=== PATIENT | female | born 1935 | race Two or more races ===

== ENCOUNTER 2016-07-21 12:38 | Inpatient (IN) | payer OTHER ==
[~2016-07-21] VITALS: Ht 162.6 cm; Wt 76.5 kg
[~2016-07-21 12:38] MED LIST: HYDR-2549 OR
[2016-07-21 13:47] LABS: Basophils # (auto) 0.1 uL; Basophils % (auto) 0.9 % (0.0-2.0); Eosinophils # (auto) 0.4 uL; Eosinophils % (auto) 6.2 % (0.0-7.0); Hematocrit 47.4 % (36.0-46.0); Hemoglobin 15.2 g/dL (12.2-16.2); Lymphocytes # (auto) 1.1 uL; Lymphocytes % (auto) 18.1 % (10.0-50.0); Mean Corpuscular Hemoglobin 31.4 pg (28.0-32.0); Mean Corpuscular Volume 98.2 fL (80.0-100.0); Mean Platelet Volume 8.5 fL (7.4-10.4); Monocytes # (auto) 0.4 uL; Monocytes % (auto) 6.5 % (0.0-12.0); Neutrophils # (auto) 4.2 uL; Neutrophils % (auto) 68.3 % (37.0-80.0); Platelet Count (auto) 262 10^3/uL (140-450); White Blood Cell 6.1 10^3/uL (4.4-10.8)
[2016-07-21 14:16] LABS: Albumin 3.8 g/dL (3.4-5.0); BUN/Creatinine Ratio 16.9; Bilirubin, Total 0.5 mg/dL (0.2-1.0); Calcium 8.4 mg/dL (8.5-10.1); Potassium 3.4 mmol/L (3.5-5.1); Total Protein 7.5 g/dL (6.4-8.2)
[2016-07-21] MEDS ORDERED: methylPREDNISolone SOD SUCC 125 MG/2 ML VL IV ONE (15:30)
[2016-07-21] MEDS ORDERED: IPRATROPIUM BROM 0.5 MG/2.5ML INH SOL NEB ONE (15:30)
[2016-07-21] MEDS ORDERED: ALBUTEROL SULF 2.5 MG/0.5ML(0.5%) NEB SOLN NEB ONE (15:30)
[2016-07-21] MEDS ORDERED: cefTRIAXone 1GM/50ML D5W 50 ML IV ONE (15:30)
[2016-07-21] MEDS ORDERED: AZITHROMYCIN 500MG/D5W 250ML 250 ML IV ONE (15:30)
[2016-07-21] MEDS ORDERED: LORazepam 0.5 MG TAB PO PRN (15:45)
[2016-07-21] MEDS ORDERED: HYDROcodone-ACET 5/325MG TAB PO PRN (15:45)
[2016-07-21] MEDS ORDERED: DEXTROSE (50%) 50ML SYRG IV PRN (15:45)
[2016-07-21] MEDS ORDERED: ALBUTEROL SULF 2.5 MG/0.5ML(0.5%) NEB SOLN NEB PRN (15:45)
[2016-07-21] MEDS ORDERED: NITROGLYCERIN 0.4 MG SL TAB SL PRN (15:45)
[2016-07-21] MEDS ORDERED: OSELTAMIVIR 75 MG CAP PO ONE (15:45)
[2016-07-21] MEDS ORDERED: MORPHINE SULF INJ 2 MG/ML SYRINGE 1ML IV PRN (15:45)
[2016-07-21] MEDS ORDERED: PROMETHAZINE HCL 25 MG/ML 1ML IV PRN (15:45)
[2016-07-21 16:10] LABS: B-Type Natriuretic Peptide 77.7 pg/mL (0-100)
[2016-07-21] MEDS: SODIUM CHLORIDE 0.9% 1,000 ML IV SCH (16:40)
[2016-07-21 16:42] LABS: Temperature: 22.1 C (20.0-25.0)
[2016-07-21] MEDS: DOXYCYCLINE HYC 100MG/250ML 250 ML IV SCH (16:49)
[2016-07-21] MEDS ORDERED: PANTOPRAZOLE 40 MG TAB PO SCH (16:50)
[2016-07-21] MEDS: ACCU-CHEK COMFORT CURVE STRIP VI SCH ×2 (17:00→22:00)
[2016-07-21] MEDS: InsuLIN REG 1unit/0.01ml Soln (100units/ml) SC SCH ×2 (17:00→23:14)
[2016-07-21] MEDS: HYDROcodone-ACET 10/325MG TAB PO SCH ×2 (17:00→22:00)
[2016-07-21] MEDS ORDERED: OMEP20TA PO (17:13)
[2016-07-21] MEDS ORDERED: GABA-339 PO (17:13)
[2016-07-21] MEDS ORDERED: NOR5T PO (17:13)
[2016-07-21 17:49] VITALS: BP 130/78
[2016-07-21] MEDS: methylPREDNISolone SOD SUCC 40 MG/ML VL IV SCH ×2 (18:35→23:45)
[2016-07-21] MEDS ORDERED: PNEUMOCOCCAL VACC POLYS 25 MCG/0.5 ML VIAL IM ONE (18:45)
[2016-07-21] MEDS ORDERED: INFLUENZA QUAD 2016-2017 0.5 ML SYRG IM ONE (18:45)
[2016-07-21] MEDS: ENOXAPARIN SOD 40 MG/0.4 ML SYRINGE SC SCH (18:45)
[2016-07-21] MEDS: IPRATROPIUM BROM 0.5 MG/2.5ML INH SOL NEB SCH (19:15)
[2016-07-21] MEDS: ALBUTEROL SULF 2.5 MG/0.5ML(0.5%) NEB SOLN NEB SCH (19:15)
[2016-07-21 19:40] LABS: REFLEX LACTIC ACID YES OR NO NO
[2016-07-21] MEDS: OSELTAMIVIR 30 MG CAP PO SCH ×2 (21:15→22:00)
[2016-07-21 21:55] VITALS: BP 108/55
[2016-07-21] MEDS ORDERED: GABAPENTIN 300 MG CAP PO SCH ×2 (22:00)
[2016-07-21] MEDS: GABAPENTIN 300 MG CAP PO SCH (22:24)
[2016-07-22] MEDS: IPRATROPIUM BROM 0.5 MG/2.5ML INH SOL NEB SCH ×4 (01:17→18:00)
[2016-07-22] MEDS: ALBUTEROL SULF 2.5 MG/0.5ML(0.5%) NEB SOLN NEB SCH ×4 (01:17→19:19)
[2016-07-22 01:19] VITALS: BP 108/55
[2016-07-22] MEDS: DOXYCYCLINE HYC 100MG/250ML 250 ML IV SCH ×2 (04:02→15:46)
[2016-07-22] MEDS: SODIUM CHLORIDE 0.9% 1,000 ML IV SCH ×2 (05:05→14:00)
[2016-07-22 05:14] VITALS: BP 124/68
[2016-07-22] MEDS: GABAPENTIN 300 MG CAP PO SCH ×3 (06:00→21:32)
[2016-07-22] MEDS: InsuLIN REG 1unit/0.01ml Soln (100units/ml) SC SCH ×4 (06:19→22:55)
[2016-07-22] MEDS: ACCU-CHEK COMFORT CURVE STRIP VI SCH ×4 (06:20→21:32)
[2016-07-22 06:21] LABS: Basophils # (auto) 0 uL; Basophils % (auto) 0.2 % (0.0-2.0); Eosinophils # (auto) 0 uL; Hematocrit 42.7 % (36.0-46.0); Hemoglobin 13.7 g/dL (12.2-16.2); Lymphocytes # (auto) 0.6 uL; Lymphocytes % (auto) 10.6 % (10.0-50.0); Mean Corpuscular Hemoglobin 31.4 pg (28.0-32.0); Mean Corpuscular Volume 97.8 fL (80.0-100.0); Mean Platelet Volume 8.9 fL (7.4-10.4); Monocytes # (auto) 0.1 uL; Neutrophils # (auto) 4.9 uL; Neutrophils % (auto) 88.2 % (37.0-80.0); Platelet Count (auto) 222 10^3/uL (140-450); Red Cell Distribution Width 16.7 % (11.6-16.0); White Blood Cell 5.5 10^3/uL (4.4-10.8)
[2016-07-22] MEDS: HYDROcodone-ACET 10/325MG TAB PO SCH ×3 (06:26→21:32)
[2016-07-22] MEDS: methylPREDNISolone SOD SUCC 40 MG/ML VL IV SCH ×3 (06:26→17:56)
[2016-07-22 06:41] LABS: Albumin 3.4 g/dL (3.4-5.0); BUN/Creatinine Ratio 27.3; Bilirubin, Total 0.4 mg/dL (0.2-1.0); Calcium 8.7 mg/dL (8.5-10.1); Potassium 3.3 mmol/L (3.5-5.1); Total Protein 6.6 g/dL (6.4-8.2)
[2016-07-22 09:00] VITALS: BP 130/71
[2016-07-22] MEDS ORDERED: guaiFENesin-DEXTROMETHORPHAN 5ML SYR GT PRN (09:00)
[2016-07-22] MEDS: PANTOPRAZOLE 40 MG TAB PO SCH (09:32)
[2016-07-22] MEDS: ENOXAPARIN SOD 40 MG/0.4 ML SYRINGE SC SCH (09:33)
[2016-07-22] MEDS ORDERED: guaiFENesin-DEXTROMETHORPHAN 5ML SYR PO PRN (09:45)
[2016-07-22] MEDS ORDERED: POTASSIUM CHL 20 Meq TABLET PO ONE (12:15)
[2016-07-22 13:00] VITALS: BP 144/70
[2016-07-22] MEDS ORDERED: PROMETHAZINE W/CODEINE 5 ML ORAL SYRUP PO PRN (16:00)
[2016-07-22] MEDS: PROMETHAZINE W/CODEINE 5 ML ORAL SYRUP PO PRN (16:16)
[2016-07-22 17:00] VITALS: BP 130/73
[2016-07-22] MEDS: MORPHINE SULF INJ 2 MG/ML SYRINGE 1ML IV PRN (19:38)
[2016-07-22 22:00] VITALS: BP 126/76
[2016-07-22] MEDS: TEMAZEPAM 15 MG CAP PO PRN (22:52)
[2016-07-23] MEDS: methylPREDNISolone SOD SUCC 40 MG/ML VL IV SCH ×5 (00:46→23:13)
[2016-07-23] MEDS: MORPHINE SULF INJ 2 MG/ML SYRINGE 1ML IV PRN ×2 (00:46→15:23)
[2016-07-23] MEDS: PROMETHAZINE W/CODEINE 5 ML ORAL SYRUP PO PRN (00:49)
[2016-07-23] MEDS: ALBUTEROL SULF 2.5 MG/0.5ML(0.5%) NEB SOLN NEB SCH ×4 (01:05→19:15)
[2016-07-23] MEDS: DOXYCYCLINE HYC 100MG/250ML 250 ML IV SCH ×2 (03:49→15:25)
[2016-07-23 05:00] VITALS: BP 135/70
[2016-07-23] MEDS: GABAPENTIN 300 MG CAP PO SCH ×3 (06:04→21:10)
[2016-07-23] MEDS: HYDROcodone-ACET 10/325MG TAB PO SCH ×2 (06:05→13:32)
[2016-07-23] MEDS: ACCU-CHEK COMFORT CURVE STRIP VI SCH ×4 (06:44→21:12)
[2016-07-23] MEDS: InsuLIN REG 1unit/0.01ml Soln (100units/ml) SC SCH ×4 (06:46→21:38)
[2016-07-23] MEDS: IPRATROPIUM BROM 0.5 MG/2.5ML INH SOL NEB SCH ×4 (07:03→19:15)
[2016-07-23 07:20] LABS: Urine Bilirubin Negative (Negative); Urine Blood Negative /uL (Negative); Urine Color Yellow (Yellow); Urine Glucose Normal (Normal); Urine Ketone Negative (Negative); Urine Mucus FEW (None Seen); Urine Nitrite Negative (Negative); Urine RBC <1 /hpf (0 - 4); Urine Squamous Epithelial Cell FEW /hpf (<5); Urine Urobilinogen Normal (Negative); Urine pH 6.5 (5.0-8.0)
[2016-07-23 08:08] VITALS: BP 130/72
[2016-07-23] MEDS: SODIUM CHLORIDE 0.9% 1,000 ML IV SCH (08:43)
[2016-07-23] MEDS: PANTOPRAZOLE 40 MG TAB PO SCH (09:48)
[2016-07-23] MEDS: ENOXAPARIN SOD 40 MG/0.4 ML SYRINGE SC SCH (09:48)
[2016-07-23 13:10] VITALS: BP 141/69
[2016-07-23 17:12] VITALS: BP 139/75
[2016-07-23] MEDS: LACTULOSE 20Gm/30ML SOLN PO SCH ×2 (18:04→23:13)
[2016-07-23] MEDS: ACETAMINOPHEN 500 MG TAB PO PRN ×2 (19:47→23:13)
[2016-07-23] MEDS: TEMAZEPAM 15 MG CAP PO PRN (21:10)
[2016-07-23 22:00] VITALS: BP 133/70
[2016-07-24] MEDS: IPRATROPIUM BROM 0.5 MG/2.5ML INH SOL NEB SCH ×3 (00:17→12:52)
[2016-07-24] MEDS: ALBUTEROL SULF 2.5 MG/0.5ML(0.5%) NEB SOLN NEB SCH ×3 (00:18→12:52)
[2016-07-24] MEDS: DOXYCYCLINE HYC 100MG/250ML 250 ML IV SCH (03:00)
[2016-07-24] MEDS: ACETAMINOPHEN 500 MG TAB PO PRN ×2 (04:38→09:14)
[2016-07-24 05:00] VITALS: BP 138/77
[2016-07-24] MEDS: LACTULOSE 20Gm/30ML SOLN PO SCH ×2 (05:05→12:18)
[2016-07-24] MEDS: methylPREDNISolone SOD SUCC 40 MG/ML VL IV SCH ×2 (05:05→11:49)
[2016-07-24] MEDS: InsuLIN REG 1unit/0.01ml Soln (100units/ml) SC SCH ×2 (05:26→11:30)
[2016-07-24] MEDS: ACCU-CHEK COMFORT CURVE STRIP VI SCH ×2 (05:26→11:48)
[2016-07-24] MEDS: GABAPENTIN 300 MG CAP PO SCH ×2 (05:42→13:37)
[2016-07-24 09:18] VITALS: BP 132/87
[2016-07-24] MEDS: PANTOPRAZOLE 40 MG TAB PO SCH (11:39)
[2016-07-24] MEDS: ENOXAPARIN SOD 40 MG/0.4 ML SYRINGE SC SCH (11:39)
[2016-07-24 12:30] VITALS: BP 133/65
[2016-07-24 16:42] VITALS: BP 158/81
== END 2016-07-24 15:00 | disposition left against medical advice (07) | DRG 191 ==
LOC: ER 12:50 → TELE 12:51 → TELE-WESTW 17:34
PROVIDERS: ADMIT Internal Medicine; ATTEND Internal Medicine
DX: J44.1 Chronic obstructive pulmonary disease with (acute) exacerbation (principal); J45.901 Unspecified asthma with (acute) exacerbation; E11.9 Type 2 diabetes mellitus without complications; I10 Essential (primary) hypertension; I70.0 Atherosclerosis of aorta; J20.9 Acute bronchitis, unspecified; K21.9 Gastro-esophageal reflux disease without esophagitis; M54.9 Dorsalgia, unspecified; E87.6 Hypokalemia; G89.29 Other chronic pain; Z53.21 Procedure and treatment not carried out due to patient leaving prior to being seen by health care provider; F41.9 Anxiety disorder, unspecified; Z90.710 Acquired absence of both cervix and uterus; Z79.899 Other long term (current) drug therapy; Z80.3 Family history of malignant neoplasm of breast; Z82.5 Family history of asthma and other chronic lower respiratory diseases; Z87.891 Personal history of nicotine dependence
CPT/HCPCS: 36415; 36600; 71020; 80053; 80061; 81001; 82805; 82962; 83036; 83605; 83735; 83880; 84484; 85025; 85049; 85379; 87040; 87070; 87205; 87400; 93005; 94640; 94644; 96365; 96375; 99291; G9035; J0696; J1815; J3490

== ENCOUNTER 2024-08-31 09:28 | Emergency (ER) | payer OTHER, MEDICAID ==
[~2024-08-31] VITALS: Ht 162.6 cm; Wt 50.0 kg
[~2024-08-31 09:28] MED LIST changes: +FLUT110A INH; +GABA-339 PO; -HYDR-2549 OR; +OMEP20TA PO
--- NOTE | 2024-08-31 10:15 | ED.PDOC ---
History of Present Illness HPI Comments 89-year-old female with PMHx Dementia, COPD brought in by EMS presents with a chief complaint of left hip tenderness s/p mechanical fall. Patients family states that they witnessed patient on camera falling and landing on her left hip. Patient has a history of hip replacement on her left side. Patient is nor fabrice A&Ox2 at baseline and is currently at GCS 14. Patient denies hitting her head or losing consciousness. Patient is not on blood thinners. Chief Complaint: Fall Injury Time Seen by MD: 09:41 Primary Care Provider: NORM Dyer Notes: Medications, Allergies Allergies: Coded Allergies: NO KNOWN ALLERGIES (Unverified , 09/09/16) Home Meds Active Scripts Fluticasone Propionate (FLOVENT HFA 110Mcg INH) 110 Mcg Ih, 2 PUFF INH BID, #1 INHALER 0 Refills Prov:DEBBY HANLEY MD 09/13/16 Reported Medications Omeprazole (Gnp Omeprazole) 20 Mg Tab, 1 TAB PO DAILY, #90 TAB 1 Refill 07/21/16 Gabapentin (Gabapentin) 600 Mg Tab, 1 TAB PO TID, #90 TAB 3 Refills 07/21/16 Information Source: Patient, Emergency Med Personnel Mode of Arrival: EMS Severity: Moderate Timing: Minutes Duration: Since onset Prehospital treatment: None Past Medical History PAST MEDICAL HISTORY: Anxiety, Arthritis, Asthma, COPD, GERD Surgical History: Hysterectomy UNDERWATER ROBOTICIST History: Denies all UNDERWATER ROBOTICIST Hx Family History Family History: No family hx of Lung dieudonne Social History Smoker: Quit Greater Than 1 Year, Cigarettes Alcohol: Denies ETOH Use Drugs: Denies Drug Use Lives In: Home Constitutional: denies: chills, diaphoresis, fatigue, fever, malaise, sweats, weakness, others EENTM: denies: blurred vision, double vision, ear bleeding, ear discharge, ear drainage, ear pain, ear ringing, eye pain, eye redness, hearing loss, mouth pain, mouth swelling, nasal discharge, nose bleeding, nose congestion, nose pa in, photophobia, tearing, throat pain, throat swelling, voice changes, others Respiratory: denies: cough, hemoptysis, orthopnea, SOB at rest, shortness of breath, SOB with excertion, stridor, wheezing, others Cardiovascular: denies: chest pain, dizzy spells, diaphoresis, Dyspnea on exertion, edema, irregular heart beat, left arm pain, lightheadedness, palpitations, PND, syncope, others Gastrointestinal: denies: abdomen distended, abdominal pain, blood streaked bowels, constipated, diarrhea, dysphagia, difficulty swallowing, hematemesis, melena, nausea, poor appetite, poor fluid intake, rectal bleeding, rectal pain, vomiting, others Genitourinary: denies: abnormal vagina bleeding, burning, dyspareunia, dysuria, flank pain, frequency, hematuria, incontinence, pain, , vagina discharge, urgency, others Neurological: denies: dizziness, fainting, headache, left sided numbness, left sided weakness, numbness, paresthesia, pre-existing deficit, right sided numbness, right sided weakness, seizure, speech problems, tingling, tremors, weakness, others Musculoskeletal: reports: muscle pain; denies: back pain, gout, joint pain, joint swelling, muscle stiffness, neck pain, others Integumetry: denies: bruises, change in color, change in hair/nails, dryness, laceration, lesions, lumps, rash, wounds, others Allergic/Immunocompromised: denies: Difficulty Healing, Frequent Infections, Hives, Itching, others Hematologic/Lymphatic: denies: anemia, blood clots, easy bleeding, easy bruising, swollen glands, others Endocrine: denies: excessive hunger, excessive sweating, excessive thirst, excessive urination, flushing, intolerance to cold, intolerance to heat, unexpla ined weight gain, unexplained weight loss, others Psychiatric: denies: anxiety, bipolar disorder, depression, hopeless, panic disorder, schizophrenia, sleepless, suicidal, others All Other Systems: Reviewed and Negative Physical Exam General Appearance: Mild Distress, Thin HEENT: Normal ENT Inspection, Pharynx Normal, TMs Normal Neck: Full Range of Motion, Non-Tender, Normal, Normal Inspection Respiratory: Chest Non-Tender, Lungs Clear, No Accessory Muscle Use, No Respiratory Distress, Normal Breath Sounds Cardiovascular: No Edema, No JVD, No Murmur, No Gallop, Normal Peripheral Pulses, Regular Rate/Rhythm Breast Exam: Deferred Gastrointestinal: No Organomegaly, Non Tender, No Pulsatile Mass, Normal Bowel Sounds, Soft Genitalia: Deferred Pelvic: Deferred Rectal: Deferred Extremities: Decreased range of motion, No calf tenderness, Normal capillary refill, Normal inspection, Normal range of motion, Non-tender, No pedal edema Musculoskeletal : Apperance: Normal Neurologic: Alert, salvage mend worker II-XII nml as Tested, No Motor Deficits, Normal Affect, Normal Mood, No Sensory Deficits Cerebellar Function: Normal Reflexes: Normal Skin: Dry, Normal Color, Warm Lymphatic: No Adenopathy Was a procedure done? Was a procedure done?: No EKG EKG : Pulse Rate (adult): 68 [place]: Normal Cardiac Rhythm: NSR Block: RBBB Hypertrophy: None ST: Normal Differential Dx Considerations may include: HIP FRACTURE, HIP SPRAIN, HIP DISLOCATION, DIZZINESS, SPINE FRACTURE, INTRACRANIAL HEMORRHAGE X-Ray, Labs, Meds, VS Vital Signs Date Time Temp Pulse Resp B/P (MAP) Pulse Ox O2 Delivery O2 Flow Rate FiO2 08/31/24 10:15 68 08/31/24 09:56 68 08/31/24 09:44 98.3 80 12 144/75 (98) 90 Lab Test 08/31/24 09:52 Range/Units POC Glucose 112 H 70-106 mg/dl 89-year-old female presents here status post mechanical fall. Family did not witness it however they washed on the camera and saw that she fell. She did not hit her head. She denies any headache neck or back pain. At this time she is alert and oriented x3 which is normal for her. She does report some pain to the left hip. X-ray and CT scan of the left hip has been done. Left hip with no evidence of acute fracture and prosthesis has still in place. However patient still unable to bear weight on exam. At this time we spoke to the daughter who prefers she come home and they will take care of her. Daughter does not want her going to a jail care facility. At this time patient has been discharged to daughter. Advised family that if they are unable to take care of the patient at home to return back to the ER. Patient is okay taking Tylenol for pain control and using ice packs. Time of 1ST Reevaluation: 10:11 Reevaluation 1ST: Unchanged Patient Education/Counseling: Diagnosis, Treatment, Prognosis Family Education/Counseling: Diagnosis, Treatment, Prognosis Departure 1 Departure Time of Disposition: 11:11 Impression: Primary Impression: Hip sprain Qualified Codes: S73.102A - Unspecified sprain of left hip, initial en counter Additional Impression: Fall Qualified Codes: W19.XXXA - Unspecified fall, initial encounter Disposition: HOME / SELF CARE / HOMELESS Condition: Fair Additional Instructions: Follow up with the primary care physician in 2-3 days. Tylenol can be used for pain control. Please return back to the ER if symptoms worsen or persist or you unable to take care of the patient at home. Discharged With: Self Critical Care Note Critical Care Time?: No Stability Stability form required: No Heart Score Heart Score: Heart Score Response (Comments) Value History N/A 0 EKG N/A 0 Age N/A 0 Risk Factors N/A 0 Troponin N/A 0 Total 0 I personally scribed for GOKUL HOWARD MD ([email or web address]) on 08/31/24 at 10:15. Electronically submitted by Ghanshyam Fritz ([email or web address]). I personally scribed for GOKUL HOWARD MD ([email or web address]) on 08/31/24 at 14:12. Electronically submitted by Ghanshyam Fritz ([email or web address]). GOKUL HOWARD MD Aug 31, 2024 10:15
--- NOTE | 2024-08-31 10:49 | DVH ---
CLINICAL INFORMATION: Rule out fracture. No other clinical information provided. TECHNIQUE: 2 views of the pelvis and left hip were obtained. COMPARISON: None FINDINGS: Postsurgical changes of prior bilateral hip arthroplasties. The prostheses appear intact sa tisfactory alignment position. There is lucency of the lateral cortex of the left greater trochanter seen on the frogleg lateral view, of uncertain chronicity. No other evidence of acute fracture. Suzette l gas obscures visualization of portions of the sacrum and coccyx. There is prominent heterotopic oss ification adjacent to the right hip prosthesis. IMPRESSION: Lucency of the lateral cortex of the left greater trochanter on the frogleg lateral view is of uncert ain chronicity, possibly chronic. Correlate with clinical findings. If clinically indicated, CT coul d be obtained to better characterize.
--- NOTE | 2024-08-31 13:22 | DVH ---
INDICATION: ro fracture COMPARISON: None TECHNIQUE: CT of the rightleft was performed without contrast. Volume transverse images were obtain ed and reconstructed in multiple planes using bone and soft tissue algorithms. Radiation Dose Information: CT Dose: CTDI volume is 13.1 mGy. Dose-length product is 374.73 mGy*cm FINDINGS: The alignment is normal. The joint spaces are normal. There is no fracture, dislocation or aggressive osseous lesion. There is no joint effusion. The soft tissues are normal. IMPRESSION: 1. Right hip prosthesis appears well aligned without evidence of loosening. 2. All CT scans at this medical facility are performed using dose modulation techniques as appropriat e to a performed exam including the following: Automated exposure control was utilized; adjustment of the MA and/or KV according to patient size; and use of iterative reconstruction technique.
[2024-08-31] MEDS: DexAMETHasone SOD PHOS 10MG/1ML VIAL INJ PO ONE (14:52)
[2024-08-31] MEDS: GABAPENTIN 300 MG CAP PO ONE (14:52)
[2024-08-31 15:08] VITALS: BP 137/69; TEMP 97.9
[2024-08-31 15:09] VITALS: PULSE 93; RESP 16; O2SAT 92
--- NOTE | 2024-08-31 16:33 | ECG ---
[facility] Test Date: 2024-08-31 Test Time: 09:56:20 Pat Name: DELMA PRESCOTT Department: ER Room: Gender: F Section Repairer: JESÚS : 1935 Requested By: GOKUL HOWARD Order Number: [id number] Reading MD: Tutu Groves Measurements Intervals [place] Rate: 68 P: 72 TX: 145 QRS: 91 QRSD: 131 T: 24 QT: 426 QTc: 454 Interpretive Statements Sinus rhythm Atrial premature complex Right bundle branch block Electronically Signed On 09-01-2024 18:46:15 PST by Tutu Groves Please click the below link to view image of tracing.
== END 2024-08-31 15:27 | disposition home or self-care (01) ==
LOC: EDUNIT# 09:28 → ER 09:28 → EDBD 09:28 → ER 15:27
DX: S73.102A Unspecified sprain of left hip, initial encounter (principal); K21.9 Gastro-esophageal reflux disease without esophagitis; J44.9 Chronic obstructive pulmonary disease, unspecified; M19.90 Unspecified osteoarthritis, unspecified site; Z79.51 Long term (current) use of inhaled steroids; Z79.899 Other long term (current) drug therapy; Z90.710 Acquired absence of both cervix and uterus; Z96.643 Presence of artificial hip joint, bilateral; Z87.891 Personal history of nicotine dependence; W01.0XXA Fall on same level from slipping, tripping and stumbling without subsequent striking against object, initial encounter; Y93.89 Activity, other specified; Y92.89 Other specified places as the place of occurrence of the external cause; Y99.8 Other external cause status
CPT/HCPCS: 73502; 73700; 82947; 93005; 99284; J1100; 82962

== ENCOUNTER 2025-04-15 15:04 | Inpatient (IN) | payer MEDICARE, MEDICAID ==
[~2025-04-15] VITALS: Ht 162.6 cm; Wt 53.9 kg
--- NOTE | 2025-04-15 15:24 | ED.PDOC ---
GI ASSESSMENT HPI Comments 89 y/o F, BIBA, with PMHx od dementia, anxiety, osteoporosis, and COPD presents to the ED for CC of abdominal pain. EMS reports, patient is coming from home where family called d/t patient experiencing diffuse abdominal pain x2days. Per EMS, family further relays, patient may have a UTI d/t increased confusion and change in baseline. Upon arrival to the ED, patient denies any pain however, her abdomen is noted to be moderately distended; EMS endorses reported LBM to have yesterday (04/14/25). Patient denies nausea, vomiting, diarrhea, frequency, or urgency. No other symptoms or modifying factors are present at this time. Chief Complaint: Abdominal Pain Time Seen by MD: 19:59 Primary Care Provider: NORM Dyer Notes: Nurses Notes, Electrical Unit Rebuilder Notes, Medications, Allergies Allergies: Coded Allergies: NO KNOWN ALLERGIES (Unverified , 09/09/16) Home Meds Active Scripts Fluticasone Propionate (FLOVENT HFA 110Mcg INH) 110 Mcg Ih, 2 PUFF INH BID, #1 INHALER 0 Refills Prov:DEBBY HANLEY MD 09/13/16 Reported Medications Oxycodone W/ Acetaminophen (Percocet 5/325MG) 1 Tab Tb, 1 TAB PO QIDPRN, #90 TAB 04/17/25 Albuterol Sulfate (VENTOLIN MDI) 90 Mcg Ih, 90 MCG IN TID, INH 04/17/25 Cholecalciferol (Vitamin D) 5,000 Unit Cap, 5000 UNIT PO DAILY, CAP 04/17/25 Omeprazole (Gnp Omeprazole) 20 Mg Tab, 1 TAB PO DAILY, #90 TAB 1 Refill 07/21/16 Information Source: Emergency Med Personnel Mode of Arrival: EMS Timing: Days Duration: Since onset Prehospital treatment: None Vomitus: None Stool: Normal Severity: Moderate Recent: None Recent Hx of: None Pain Location: Diffuse Modifying Factors: Nothing Associated sign and symptoms: Abdominal Pain Past Medical History PAST MEDICAL HISTORY: Anxiety, Arthritis, Asthma, COPD, Dementia, GERD Surgical History: Hysterectomy 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: Denies all BALANCE SHEET ANALYST Hx Family History Family History: No family hx of Lung dieudonne Social History Smoker: Quit Greater Than 1 Year, Cigarettes Alcohol: Denies ETOH Use Drugs: Denies Drug Use Lives In: Home Constitutional: denies: chills, diaphoresis, fatigue, fever, malaise, sweats, weakness, others EENTM: denies: blurred vision, double vision, ear bleeding, ear discharge, ear drainage, ear pain, ear ringing, eye pain, eye redness, hearing loss, mouth pain, mouth swelling, nasal discharge, nose bleeding, nose congestion, nose pain, photophobia, tearing, throat pain, throat swelling, voice changes, others Respiratory: denies: cough, hemoptysis, orthopnea, SOB at rest, shortness of breath, SOB with excertion, stridor, wheezing, others Cardiovascular: denies: chest pain, dizzy spells, diaphoresis, Dyspnea on exertion, edema, irregular heart beat, left arm pain, lightheadedness, palpitations, PND, syncope, others Gastrointestinal: reports: abdomen distended, abdominal pain; denies: blood streaked bowels, constipated, diarrhea, dysphagia, difficulty swallowing, hematemesis, melena, nausea, poor appetite, poor fluid intake, rectal bleeding, rectal pain, vomiting, others Genitourinary: denies: abnormal vagina bleeding, burning, dyspareunia, dysuria, flank pain, frequency, hematuria, incontinence, pain, , vagina discharge, urgency, others Neurological: denies: dizziness, fainting, headache, left sided numbness, left sided weakness, numbness, paresthesia, pre-existing deficit, right sided numbness, right sided weakness, seizure, speech problems, tingling, tremors, weakness, others Musculoskeletal: denies: back pain, gout, joint pain, joint swelling, muscle pain, muscle stiffness, neck pain, others Integumetry: denies: bruises, change in color, change in hair/nails, dryness, laceration, lesions, lumps, rash, wounds, others Allergic/Immunocompromised: denies: Difficulty Healing, Frequent Infections, Hives, Itching, others Hematologic/Lymphatic: denies: anemia, blood clots, easy bleeding, easy bruising, swollen glands, others Endocrine: denies: excessive hunger, excessive sweating, excessive thirst, excessive urination, flushing, intolerance to cold, intolerance to heat, unexplained weight gain, unexplained weight loss, others Psychiatric: denies: anxiety, bipolar disorder, depression, hopeless, panic disorder, schizophrenia, sleepless, suicidal, others All Other Systems: Reviewed and Negative Physical Exam General Appearance: No Apparent Distress, Normal HEENT: Normal ENT Inspection, Pharynx Normal Neck: Full Range of Motion, Non-Tender, Normal, Normal Inspection Respiratory: Chest Non-Tender, Lungs Clear, No Accessory Muscle Use, No Respiratory Distress, Normal Breath Sounds Cardiovascular: No Edema, No Murmur, No Gallop, Normal Peripheral Pulses, Regular Rate/Rhythm Breast Exam: Deferred Gastrointestinal: Distended, No Organomegaly, Normal Bowel Sounds, Soft Genitalia: Deferred Pelvic: Deferred Rectal: Deferred Extremities: No calf tenderness, Normal capillary refill, Normal inspection, Normal range of motion, Non-tender, No pedal edema Musculoskeletal : Apperance: Normal Neurologic: Alert, counter person II-XII nml as Tested, No Motor Deficits, Normal Affect, Normal Mood, No Sensory Deficits Cerebellar Function: Normal Reflexes: Normal Skin: Dry, Normal Color, Warm Lymphatic: No Adenopathy Was a procedure done? Was a procedure done?: No GI differential Dx Differential Diagnosis: Bowel Obstruction, Cholangitis, Constipation, UTI, Urolithiasis X-Ray, Labs, Meds, VS Vital Signs Date Time Temp Pulse Resp B/P (MAP) Pulse Ox O2 Delivery O2 Flow Rate FiO2 04/15/25 19:00 99 26 184/83 (116) 94 04/15/25 17:07 117 33 181/101 (127) 97 04/15/25 15:40 98.6 113 30 186/96 (126) 96 98.6 04/15/25 15:40 113 30 96 Nasal Cannula* 2 28 04/15/25 15:17 98.2 64 16 154/92 97 98.2 04/15/25 15:08 118 Lab Test 04/15/25 19:21 04/15/25 17:22 04/15/25 15:45 04/15/25 15:23 Range/Units Lactic Acid Level 1.9 2.4 *H 0.4-2.0 mmol/L Urine Color Light-orange Yellow Urine Clarity Ex.turbid Clear Urine pH 5.5 5.0-9.0 Urine Specific [place] 1.028 1.001-1.035 Urine Protein 1+ H Negative Urine Ketones Negative Negative Urine Blood 1+ H Negative /uL Urine Nitrite Negative Negative Urine Bilirubin Negative Negative Urine Urobilinogen 3 H Negative mg/dL Urine Leukocyte Esterase Negative Negative /uL Urine RBC 16 0 - 4 /hpf Urine Microscopic WBC 1 0-5 /HPF Urine Squamous Epithelial Cells Mod <5 /hpf Urine Amorphous Crystals Few None Seen /hpf Urine Bacteria Few H None Seen /hpf Urine Hyaline Casts Few 0 - 2 /lpf Urine Mucus Few None Seen Urine Glucose Normal Normal mg/dL White Blood Count 14.0 H 4.4-10.8 10^3/uL Red Blood Count 4.18 4.0-5.20 10^6/uL Hemoglobin 14.0 12.2-16.2 g/dL Hematocrit 43.0 36.0-46.0 % Mean Corpuscular Volume 102.8 H 80.0-100.0 fL Mean Corpuscular Hemoglobin 33.5 H 28.0-32.0 pg Mean Corpuscular Hemoglobin Concent 32.6 32.0-36.0 g/dL Red Cell Distribution Width 20.4 H 11.8-14.3 % Platelet Count 230 140-450 10^3/uL Mean Platelet Volume 9.0 6.9-10.8 fL Neutrophils (%) (Auto) 90.8 H 37.0-80.0 % Lymphocytes (%) (Auto) 3.4 L 10.0-50.0 % Monocytes (%) (Auto) 5.6 0.0-12.0 % Eosinophils (%) (Auto) 0.0 0.0-7.0 % Basophils (%) (Auto) 0.2 0.0-2.0 % Neutrophils # (Auto) 12.7 H 1.6-8.6 10 ^3/uL Lymphocytes # (Auto) 0.5 0.4-5.4 10 ^3/uL Monocytes # (Auto) 0.8 0-1.3 10 ^3/uL Eosinophils # (Auto) 0 0-0.8 10 ^3/uL Basophils # (Auto) 0 0-0.2 10 ^3/uL Nucleated Red Blood Cells 0.4 % Sodium Level 144 136-145 mmol/L Potassium Level 4.5 3.5-5.1 mmol/L Chloride Level 106 98-107 mmol/L Carbon Dioxide Level 22 20-31 mmol/L Anion Gap 16 H 5-15 Blood Urea Nitrogen 30 H 9-23 mg/dL Creatinine 1.08 H 0.550-1.02 mg/dL Glomerular Filtration Rate Calc 49 >90 mL/min BUN/Creatinine Ratio 27.8 H 10.0-20.0 Serum Glucose 162 H 74-106 mg/dL Calcium Level 9.0 8.7-10.4 mg/dL Total Bilirubin 1.4 H 0.2-1.0 mg/dL Aspartate Amino Transferase (AST) 184 H 13-40 U/L Alanine Aminotransferase (ALT) 266 H 7-40 U/L Alkaline Phosphatase 147 H 46-116 U/L Total Protein 7.5 5.7-8.2 g/dL Albumin 4.5 3.2-4.8 g/dL Lipase 417 H 12-53 U/L [place] [id number] Ph: [phone] DIAGNOSTIC IMAGING Diagnostic Imaging Report : [id number] Signed PATIENT: DELMA PRESCOTT ACCT: [id number] UNIT: [id number] : 1935 LOC: ER ROOM / BED: / AGE / SEX: 89 / F ADM STATUS: REG ER SERVICE [id number] ORDERING PHYSICIAN: MADAN METZGER PROCEDURE(s): ABPL - CT AB PEL WO CON-NO ORAL OR IV REASON: abd pain/ distention ORDER NUMBER(s): [id number], ACCESSION NUMBER(s): [id number] Indication: abd pain/ distention Comparison: None Technique: Helical axial scans were performed through the abdomen and pelvis without intravenous contrast. Subsequently, coronal and sagittal reformations were obtained. Dose lowering techniques have been used including automated exposure control and adjustment of mA and/or kv according to patient size. FINDINGS: Limited evaluation of the vasculature and solid organs due to lack of intravenous contrast. LUNGS BASES: Bibasilar atelectasis and/or airspace disease. LIVER: Mild intrahepatic biliary ductal dilation. SPLEEN: Normal GALLBLADDER: Surgically absent. PANCREAS: Normal ADRENAL GLANDS: Normal KIDNEYS: No hydronephrosis or obstructing renal stone. Right renal hypoattenuating lesion measuring 3.0 cm, not definitely cystic. GI: Stomach and small bowel dilation. Lower abdominal small bowel partially obscured by streak artifact however with differential small bowel caliber concerning for high-grade obstruction. Partially visualized esophageal dilation. LYMPH NODES: Normal VASCULAR STRUCTURES: Atherosclerotic calcification of the abdominal aorta and its major branches. BLADDER: Obscured. PELVIC ORGAN: Obscured. FREE AIR OR FREE FLUID: None where visualized. OSSEOUS STRUCTURES: Multilevel degenerative changes of the spine.Streak artifact from right hip arthroplasty limiting evaluation of the adjacent structures. SOFT TISSUES: Normal DLP is 386.2mGy-cm. CTDI vol is 8.1mGy. IMPRESSION: 1. Stomach and small bowel dilation with differential small bowel caliber concerning for high-grade obstruction. 2. Mild intrahepatic biliary ductal dilation. 3. Bibasilar atelectasis and/or airspace disease. 4. Right renal hypoattenuating lesion measuring 3.0 cm, not definitely cystic. Nonemergent follow-up renal ultrasound recommended. ATED BY: LEE THRASHER MD DICTATED DATE/TIME: 04/15/251643 SIGNED BY: LEE THRASHER MD SIGNED DATE/TIME: 04/15/251643 CC: X-Ray, Labs, Meds, VS Comment Patient will be admitted for urinary tract infection Patient given Rocephin 1 g in office Time of 1ST Reevaluation: 15:45 Reevaluation 1ST: Unchanged Patient Education/Counseling: Diagnosis, Treatment Family Education/Counseling: No Family Present SEPSIS Sepsis Screen Physician Orders Electrocardigram (04/15/25 15:11) Ct Ab Pel Wo Con-No Oral Or Iv (04/15/25 15:13) Ng To Lis (04/15/25 17:00) * Surgical Consult (04/15/25 ) Chest Xray 1 View (04/15/25 17:36) Vital Signs Date Time Temp Pulse Resp B/P (MAP) Pulse Ox O2 Delivery O2 Flow Rate FiO2 04/15/25 19:00 99 26 184/83 (116) 94 04/15/25 17:07 117 33 181/101 (127) 97 04/15/25 15:40 98.6 113 30 186/96 (126) 96 98.6 04/15/25 15:40 113 30 96 Nasal Cannula* 2 28 04/15/25 15:17 98.2 64 16 154/92 97 98.2 04/15/25 15:08 118 Laboratory Tests Test 04/15/25 15:23 04/15/25 17:22 04/15/25 19:21 White Blood Count 14.0 10^3/uL (4.4-10.8) H Lactic Acid Level 2.4 mmol/L (0.4-2.0) *H 1.9 mmol/L (0.4-2.0) Departure 1 Departure Time of Disposition: 19:54 Impression: Primary Impression: Urinary tract infection Qualified Codes: N30.00 - Acute cystitis without hematuria Disposition: ADMITTED INPATIENT Condition: Stable Discharged With: Self Critical Care Note Critical Care Time?: No Stability Stability form required: No Heart Score Heart Score: Heart Score Response (Comments) Value History N/A 0 EKG N/A 0 Age N/A 0 Risk Factors N/A 0 Troponin N/A 0 Total 0 I personally scribed for MADAN METZGER ([email or web address]) on 04/15/25 at 15:23. Electronically submitted by Eula Wheeler ([email or web address]). I personally scribed for MADAN METZGERP ([email or web address]) on 04/15/25 at 17:15. Electronically submitted by Eula Wheeler [email or web address]). MADAN METZGER Apr 15, 2025 15:23
[2025-04-15 15:32] LABS: Hematocrit 43.0 % (36.0-46.0); Hemoglobin 14.0 g/dL (12.2-16.2); Mean Corpuscular Hemoglobin 33.5 pg (28.0-32.0); Mean Corpuscular Volume 102.8 fL (80.0-100.0); Nucleated Red Blood Cells % 0.4 %
[2025-04-15 15:40] VITALS: PULSE 113; RESP 30; O2SAT 96
[2025-04-15 15:46] LABS: Albumin 4.5 g/dL (3.2-4.8); Anion Gap 16 (5-15); BUN/Creatinine Ratio 27.8 (10.0-20.0); Calcium 9.0 mg/dL (8.7-10.4); Carbon Dioxide 22 mmol/L (20-31); Chloride 106 mmol/L (98-107); Potassium 4.5 mmol/L (3.5-5.1); Sodium 144 mmol/L (136-145); Total Protein 7.5 g/dL (5.7-8.2)
[2025-04-15 15:48] LABS: Alanine Aminotransferase 266 U/L (7-40); Alkaline Phosphatase 147 U/L (46-116); Bilirubin, Total 1.4 mg/dL (0.2-1.0); Blood Urea Nitrogen 30 mg/dL (9-23); Glucose 162 mg/dL (74-106); Lipase 417 U/L (12-53)
--- NOTE | 2025-04-15 16:47 | DVH ---
Indication: abd pain/ distention Comparison: None Technique: Helical axial scans were performed through the abdomen and pelvis without intravenous cont rast. Subsequently, coronal and sagittal reformations were obtained. Dose lowering techniques have been used including automated exposure control and adjustment of mA and /or kv according to patient size. FINDINGS: Limited evaluation of the vasculature and solid organs due to lack of intravenous contrast. LUNGS BASES: Bibasilar atelectasis and/or airspace disease. LIVER: Mild intrahepatic biliary ductal dilation. SPLEEN: Normal GALLBLADDER: Surgically absent. PANCREAS: Normal ADRENAL GLANDS: Normal KIDNEYS: No hydronephrosis or obstructing renal stone. Right renal hypoattenuating lesion measuring 3 .0 cm, not definitely cystic. GI: Stomach and small bowel dilation. Lower abdominal small bowel partially obscured by streak artifa ct however with differential small bowel caliber concerning for high-grade obstruction. Partially vis ualized esophageal dilation. LYMPH NODES: Normal VASCULAR STRUCTURES: Atherosclerotic calcification of the abdominal aorta and its major branches. BLADDER: Obscured. PELVIC ORGAN: Obscured. FREE AIR OR FREE FLUID: None where visualized. OSSEOUS STRUCTURES: Multilevel degenerative changes of the spine.Streak artifact from right hip arthr oplasty limiting evaluation of the adjacent structures. SOFT TISSUES: Normal DLP is 386.2mGy-cm. CTDI vol is 8.1mGy. IMPRESSION: 1. Stomach and small bowel dilation with differential small bowel caliber concerning for high-grade o bstruction. 2. Mild intrahepatic biliary ductal dilation. 3. Bibasilar atelectasis and/or airspace disease. 4. Right renal hypoattenuating lesion measuring 3.0 cm, not definitely cystic. Nonemergent follow-up renal ultrasound recommended.
[2025-04-15 17:03] LABS: Urine Amorphous Crystal FEW /hpf (None Seen); Urine Protein, UAD 1+ (Negative)
--- NOTE | 2025-04-15 17:21 | DVHINCON2 ---
Date of service: Apr 15, 2025 Family History: Family history: Asthma G8 FATHER G8 SISTER Malignant neoplasm of breast G8 SISTER Allergies: Coded Allergies: NO KNOWN ALLERGIES (Unverified , 09/09/16) Home Meds Active Scripts Fluticasone Propionate (FLOVENT HFA 110Mcg INH) 110 Mcg Ih, 2 PUFF INH BID, #1 INHALER 0 Refills Prov:DEBBY HANLEY MD 09/13/16 Reported Medications Omeprazole (Gnp Omeprazole) 20 Mg Tab, 1 TAB PO DAILY, #90 TAB 1 Refill 07/21/16 Gabapentin (Gabapentin) 600 Mg Tab, 1 TAB PO TID, #90 TAB 3 Refills 07/21/16 Vital Signs Vital Signs Date Time Temp Pulse Resp B/P (MAP) Pulse Ox O2 Delivery O2 Flow Rate FiO2 04/15/25 17:07 117 33 181/101 (127) 97 04/15/25 15:40 98.6 98.6 04/15/25 15:40 Nasal Cannula* 2 28 Labs/Diagnostic Data Labs Test 04/15/25 15:45 04/15/25 15:23 Range/Units Urine Color Light-orange Yellow Urine Clarity Ex.turbid Clear Urine pH 5.5 5.0-9.0 Urine Specific [place] 1.028 1.001-1.035 Urine Protein 1+ H Negative Urine Ketones Negative Negative Urine Blood 1+ H Negative /uL Urine Nitrite Negative Negative Urine Bilirubin Negative Negative Urine Urobilinogen 3 H Negative mg/dL Urine Leukocyte Esterase Negative Negative /uL Urine RBC 16 0 - 4 /hpf Urine Microscopic WBC 1 0-5 /HPF Urine Squamous Epithelial Cells Mod <5 /hpf Urine Amorphous Crystals Few None Seen /hpf Urine Bacteria Few H None Seen /hpf Urine Hyaline Casts Few 0 - 2 /lpf Urine Mucus Few None Seen Urine Glucose Normal Normal mg/dL White Blood Count 14.0 H 4.4-10.8 10^3/uL Red Blood Count 4.18 4.0-5.20 10^6/uL Hemoglobin 14.0 12.2-16.2 g/dL Hematocrit 43.0 36.0-46.0 % Mean Corpuscular Volume 102.8 H 80.0-100.0 fL Mean Corpuscular Hemoglobin 33.5 H 28.0-32.0 pg Mean Corpuscular Hemoglobin Concent 32.6 32.0-36.0 g/dL Red Cell Distribution Width 20.4 H 11.8-14.3 % Platelet Count 230 140-450 10^3/uL Mean Platelet Volume 9.0 6.9-10.8 fL Neutrophils (%) (Auto) 90.8 H 37.0-80.0 % Lymphocytes (%) (Auto) 3.4 L 10.0-50.0 % Monocytes (%) (Auto) 5.6 0.0-12.0 % Eosinophils (%) (Auto) 0.0 0.0-7.0 % Basophils (%) (Auto) 0.2 0.0-2.0 % Neutrophils # (Auto) 12.7 H 1.6-8.6 10 ^3/uL Lymphocytes # (Auto) 0.5 0.4-5.4 10 ^3/uL Monocytes # (Auto) 0.8 0-1.3 10 ^3/uL Eosinophils # (Auto) 0 0-0.8 10 ^3/uL Basophils # (Auto) 0 0-0.2 10 ^3/uL Nucleated Red Blood Cells 0.4 % Sodium Level 144 136-145 mmol/L Potassium Level 4.5 3.5-5.1 mmol/L Chloride Level 106 98-107 mmol/L Carbon Dioxide Level 22 20-31 mmol/L Anion Gap 16 H 5-15 Blood Urea Nitrogen 30 H 9-23 mg/dL Creatinine 1.08 H 0.550-1.02 mg/dL Glomerular Filtration Rate Calc 49 >90 mL/min BUN/Creatinine Ratio 27.8 H 10.0-20.0 Serum Glucose 162 H 74-106 mg/dL Calcium Level 9.0 8.7-10.4 mg/dL Total Bilirubin 1.4 H 0.2-1.0 mg/dL Aspartate Amino Transferase (AST) 184 H 13-40 U/L Alanine Aminotransferase (ALT) 266 H 7-40 U/L Alkaline Phosphatase 147 H 46-116 U/L Total Protein 7.5 5.7-8.2 g/dL Albumin 4.5 3.2-4.8 g/dL Lipase 417 H 12-53 U/L Assessment [id number] c/o ABD PAIN NAUSEA AFEBRILE VSS ABD SOFT DISTENDED TENDER R/O SBO CONSTIPATION KEEP NPO NG CLOSE OBSERVATION CONSIDER EMERGENT SURGERY BASED ON ONGOING EVAL Plan discussed with: GLORIA Mccrary MD Apr 15, 2025 17:21
[2025-04-15] MEDS: SODIUM CHLORIDE 0.9% 1,000 ML IV ONE ×2 (17:42→19:44)
--- NOTE | 2025-04-15 18:17 | DVH ---
CHEST RADIOGRAPH Indication: s/p ng tube placement Technique: Single frontal view of the chest was obtained Comparison: None FINDINGS: Lines and Tubes: Enteric tube is in satisfactory position. Lungs: Diffuse interstitial prominence with bilateral lower lung zone linear densities. Pleura: No effusion. No pneumothorax. Cardiomediastinal contours: Heart size is within normal limits moderate atherosclerotic calcification and uncoiling of the aorta. Bones: No acute osseous abnormality. Distended small bowel loops are noted over the visualized abdomen. IMPRESSION: Bilateral lower lung zone linear atelectasis /scarring. Enteric tube is in satisfactory position. Fluid-filled distended bowel loops are noted over the upper abdomen.
[2025-04-15 18:52] LABS: Lactic Acid w/Reflex 2.4 mmol/L (0.4-2.0)
--- NOTE | 2025-04-15 18:54 | DVHINCON2 ---
DATE OF CONSULTATION: 04/15/2025 HISTORY OF PRESENT ILLNESS: This patient is referred to me from the Emergency Room. She is 89 years old, coming in with abdominal pain, unable to give adequate history, history of dementia, anxiety, osteoporosis, COPD, and comes with abdominal pain and distention. She did have a bowel movement yesterday and according to her today, but the history is not reliable and she has had some previous abdominal surgery. Details are not clear. No hematemesis or melena. No bleeding per rectum. PAST MEDICAL HISTORY: COPD, anxiety, asthma, dementia, GERD. PAST SURGICAL HISTORY: Hysterectomy and other abdominal surgery in the upper abdomen. Details are not clear. PHYSICAL EXAMINATION: VITAL SIGNS: Afebrile. Stable signs. HEENT: With no evidence of pallor, cyanosis, or jaundice. NECK: Supple and nontender, with no thyromegaly or lymphadenopathy. CHEST AND LUNGS: Clear. HEART: Within normal limits. ABDOMEN: Soft, distended, and tender. Minimal rebound. EXTREMITIES: Unremarkable. NEUROLOGIC: Not assessed. CLINICAL IMPRESSION: Rule out bowel obstruction, rule out constipation. PLAN: At this point, needs closed observation. Kept n.p.o. with NG to low continuous suction and consider emergent surgery based upon ongoing evaluation. MD NOE Caceres/ALFRED TID: [id number] RECEIPT: [id number] cc: Henry Flynn
[2025-04-15] MEDS: PANTOPRAZOLE 40 MG/10 ML VIAL INJ IV ONE (19:30)
[2025-04-15] MEDS ORDERED: ONDANSETRON HCL 4 MG/2 ML VIAL IV PRN (19:30)
[2025-04-15 20:09] VITALS: BP 161/70; PULSE 94; RESP 18; TEMP 98.6; O2SAT 96
[2025-04-15] MEDS: hydrALAZINE HCL 20 MG/ML VL IV ONE (21:54)
--- NOTE | 2025-04-15 21:56 | DVH ---
CHEST RADIOGRAPH Indication: NGT Technique: Single frontal view of the chest was obtained COMPARISON: XY CHEST XRAY 1 VIEW on DOS: 04/15/25 FINDINGS: NG tube enters the left mainstem bronchus despite repositioning. IMPRESSION: NG tube within the airways.
--- NOTE | 2025-04-16 | DVHHP2 ---
History of Present Illness Reason for Visit: Abdominal pain History of Present Illness 89-year-old female presents for evaluation of abdominal pain. Patient with dementia noted by family members to be complaining of abdominal pain for the past two days. There is no nausea or vomiting. Family also reports worsening confusion from baseline. Past Medical History Dementia, COPD, GERD, asthma Past Surgical History Hysterectomy Family History Noncontributory Smoke: Quit ALCOHOL: none Drugs: None Lives: with Family Review of Systems Review of Systems Review of systems are currently negative otherwise addressed in HPI. Allergies: Coded Allergies: NO KNOWN ALLERGIES (Unverified , 09/09/16) Medications Current Medications Medications Dose Ordered Sig/Gregory Route Start Time Stop Time Status Last Admin Dose Admin Ceftriaxone Sodium 50 ml @ 100 mls/hr DAILY@09 IV 04/16/25 09:00 Pantoprazole Sodium 40 mg DAILY IV 04/16/25 10:00 Ondansetron HCl 4 mg Q4HP PRN IV 04/15/25 19:30 Hydromorphone HCl 0.25 mg Q4HPRN PRN IV 04/15/25 19:30 Exam Vital Signs Vital Signs Date Time Temp Pulse Resp B/P (MAP) Pulse Ox O2 Delivery O2 Flow Rate FiO2 04/15/25 23:00 98.5 112 30 152/66 (94) 96 98.5 04/15/25 15:40 Nasal Cannula* 2 28 Exam Gen: 89-year-old female in mild distress Skin: Warm, dry, normal color and texture, no rash. HEENT: Normocephalic atraumatic, mucous membranes moist and pink. Neck: Cervical and supraclavicular nodes normal without enlargement, trachea is midline, thyroid gland is normal without masses. Pulmonary: Clear to auscultation and percussion bilaterally. Cardiac: Regular rate and rhythm. No murmur Abdomen: Soft, diffuse tenderness, mild distention, bowel sounds present all 4 quadrants, no guarding, no rigidity, no organomegaly. Extremities: No cyanosis, clubbing, no edema Neuro: Confused, no focal motor deficits. Labs/Xrays Labs Test 04/15/25 19:21 04/15/25 15:45 04/15/25 15:23 Range/Units Lactic Acid Level 1.9 0.4-2.0 mmol/L Urine Color Light-orange Yellow Urine Clarity Ex.turbid Clear Urine pH 5.5 5.0-9.0 Urine Specific [place] 1.028 1.001-1.035 Urine Protein 1+ H Negative Urine Ketones Negative Negative Urine Blood 1+ H Negative /uL Urine Nitrite Negative Negative Urine Bilirubin Negative Negative Urine Urobilinogen 3 H Negative mg/dL Urine Leukocyte Esterase Negative Negative /uL Urine RBC 16 0 - 4 /hpf Urine Microscopic WBC 1 0-5 /HPF Urine Squamous Epithelial Cells Mod <5 /hpf Urine Amorphous Crystals Few None Seen /hpf Urine Bacteria Few H None Seen /hpf Urine Hyaline Casts Few 0 - 2 /lpf Urine Mucus Few None Seen Urine Glucose Normal Normal mg/dL White Blood Count 14.0 H 4.4-10.8 10^3/uL Red Blood Count 4.18 4.0-5.20 10^6/uL Hemoglobin 14.0 12.2-16.2 g/dL Hematocrit 43.0 36.0-46.0 % Mean Corpuscular Volume 102.8 H 80.0-100.0 fL Mean Corpuscular Hemoglobin 33.5 H 28.0-32.0 pg Mean Corpuscular Hemoglobin Concent 32.6 32.0-36.0 g/dL Red Cell Distribution Width 20.4 H 11.8-14.3 % Platelet Count 230 140-450 10^3/uL Mean Platelet Volume 9.0 6.9-10.8 fL Neutrophils (%) (Auto) 90.8 H 37.0-80.0 % Lymphocytes (%) (Auto) 3.4 L 10.0-50.0 % Monocytes (%) (Auto) 5.6 0.0-12.0 % Eosinophils (%) (Auto) 0.0 0.0-7.0 % Basophils (%) (Auto) 0.2 0.0-2.0 % Neutrophils # (Auto) 12.7 H 1.6-8.6 10 ^3/uL Lymphocytes # (Auto) 0.5 0.4-5.4 10 ^3/uL Monocytes # (Auto) 0.8 0-1.3 10 ^3/uL Eosinophils # (Auto) 0 0-0.8 10 ^3/uL Basophils # (Auto) 0 0-0.2 10 ^3/uL Nucleated Red Blood Cells 0.4 % Sodium Level 144 136-145 mmol/L Potassium Level 4.5 3.5-5.1 mmol/L Chloride Level 106 98-107 mmol/L Carbon Dioxide Level 22 20-31 mmol/L Anion Gap 16 H 5-15 Blood Urea Nitrogen 30 H 9-23 mg/dL Creatinine 1.08 H 0.550-1.02 mg/dL Glomerular Filtration Rate Calc 49 >90 mL/min BUN/Creatinine Ratio 27.8 H 10.0-20.0 Serum Glucose 162 H 74-106 mg/dL Calcium Level 9.0 8.7-10.4 mg/dL Total Bilirubin 1.4 H 0.2-1.0 mg/dL Aspartate Amino Transferase (AST) 184 H 13-40 U/L Alanine Aminotransferase (ALT) 266 H 7-40 U/L Alkaline Phosphatase 147 H 46-116 U/L Total Protein 7.5 5.7-8.2 g/dL Albumin 4.5 3.2-4.8 g/dL Lipase 417 H 12-53 U/L SEPSIS Sepsis Screen Date sepsis recognized/suspect: Apr 15, 2025 Time Sepsis recognized/suspect: 1539 Recent Procedure: No On Antibiotic Therapy: No Respiratory Rate >20: Yes Heart Rate >90: Yes Temp<36 C (96.8 F) or >38.3 C: No SBP <90 or MAP <65 mmHG: No New Acute Mental Status Change: No Is the patient on CPAP, BIPAP,: No Physician Orders Insert/Manage Urinary Catheter QSHIFT (04/15/25 16:14) Ng To Lis (04/15/25 17:00) * Surgical Consult (04/15/25 ) Chest Xray 1 View (04/15/25 17:36) Ceftriaxone 1gm/50ml (Rocephin) (04/16/25 09:00) Pantoprazole (Protonix) (04/16/25 10:00) Sodium Chloride 0.9% (04/15/25 19:30) Mrcp Mri (04/15/25 19:23) Admit (04/15/25 19:23) Ondansetron Hcl (Zofran) (04/15/25 19:30) Complete Blood Count (04/16/25 04:00) Comprehensive Metabolic Panel (04/16/25 04:00) Npo (Nothing By Mouth) Diet (04/16/25 Breakfast) Condition: Stable (04/15/25 19:23) Bedrest With Bathroom Privileg (04/15/25 19:23) Hydromorphone Injection (Dilaudid Inject (04/15/25 19:30) Chest Xray 1 View (04/15/25 20:49) Chest Xray 1 View (04/15/25 20:49) Vital Signs Date Time Temp Pulse Resp B/P (MAP) Pulse Ox O2 Delivery O2 Flow Rate FiO2 04/15/25 23:00 98.5 112 30 152/66 (94) 96 98.5 04/15/25 22:49 122 33 139/62 (87) 95 04/15/25 22:09 106 26 175/79 (111) 98 04/15/25 22:09 116 26 173/74 (107) 94 04/15/25 21:54 173/74 04/15/25 19:00 99 26 184/83 (116) 94 04/15/25 17:07 117 33 181/101 (127) 97 Laboratory Tests Test 04/15/25 15:23 04/15/25 17:22 04/15/25 19:21 White Blood Count 14.0 10^3/uL (4.4-10.8) H Lactic Acid Level 2.4 mmol/L (0.4-2.0) *H 1.9 mmol/L (0.4-2.0) Medications Medications Dose Ordered Sig/Gregory Route Start Time Stop Time Status Last Admin Dose Admin Ceftriaxone Sodium 50 ml @ 100 mls/hr ONCE ONCE IV 04/15/25 17:30 04/15/25 17:59 DC 04/15/25 17:42 100 MLS/HR Hydralazine HCl 10 mg ONCE ONCE IV 04/15/25 21:45 04/15/25 21:46 DC 04/15/25 21:54 10 MG Pantoprazole Sodium 40 mg ONCE ONCE IV 04/15/25 19:30 04/15/25 19:31 DC 04/15/25 19:30 40 MG Sodium Chloride 1,000 ml @ 80 mls/hr [id number] ONCE IV 04/15/25 19:30 04/16/25 07:59 04/15/25 19:44 80 MLS/HR Sodium Chloride 1,000 ml @ 1,000 mls/hr Q1H ONCE IV 04/15/25 17:15 04/15/25 18:14 DC 04/15/25 17:42 1,000 MLS/HR Assessment/Plan Assessment/Plan Assessment Acute abdominal pain Small-bowel obstruction Dilated common bile duct Transaminitis Acute kidney injury Leukocytosis Plan Admit the patient to [facility] to the hospitalist NPO Surgical consultation MRCP pending Maintenance IV fluids Pain management Continue treatment per orders. Plan discussed with: Other My Orders Orders - MADHAV DUFFY Procedure Category Date Status Time Ceftriaxone 1gm/50ml PHA 04/16/25 In Process (Rocephin) 09:00 Pantoprazole PHA 04/16/25 In Process (Protonix) 10:00 Sodium Chloride 0.9% PHA 04/15/25 In Process 19:30 Mrcp Mri MRI 04/15/25 Logged 19:23 Admit ADMIT 04/15/25 Transmitted 19:23 Ondansetron Hcl PHA 04/15/25 In Process (Zofran) 19:30 Complete Blood Count LAB 04/16/25 Verified 04:00 Comprehensive LAB 04/16/25 Verified Metabolic Panel 04:00 Npo (Nothing By DIET 04/16/25 Transmitted Mouth) Diet Breakfast Condition: Stable SAGE 04/15/25 In Process 19:23 Bedrest With Bathroom SAGE 04/15/25 In Process Privileg 19:23 Hydromorphone PHA 04/15/25 In Process Injection (Dilaudid 19:30 Chest Xray 1 View XY 04/15/25 Resulted 20:49 Chest Xray 1 View XY 04/15/25 Logged 20:49 Date of Service: Apr 15, 2025 Billing Provider: MADHAV DUFFY Common Visit Codes: [id number] INP/OBS CARE (HIGH) MADHAV DUFFY Apr 16, 2025 00:00
[2025-04-16] MEDS: LABETALOL HCL 20 MG/4 ML VL IV ONE (04:48)
[2025-04-16 08:13] LABS: Hematocrit 41.1 % (36.0-46.0); Hemoglobin 13.4 g/dL (12.2-16.2); Mean Corpuscular Hemoglobin 32.6 pg (28.0-32.0); Mean Corpuscular Volume 100.3 fL (80.0-100.0); Nucleated Red Blood Cells % 0.2 %
[2025-04-16 08:32] LABS: Albumin 4.1 g/dL (3.2-4.8); Alkaline Phosphatase 109 U/L (46-116); Anion Gap 14 (5-15); BUN/Creatinine Ratio 43.3 (10.0-20.0); Carbon Dioxide 22 mmol/L (20-31); Glucose 99 mg/dL (74-106); Potassium 4.1 mmol/L (3.5-5.1); Sodium 144 mmol/L (136-145); Total Protein 6.7 g/dL (5.7-8.2)
[2025-04-16 08:33] LABS: Alanine Aminotransferase 178 U/L (7-40); Bilirubin, Total 0.9 mg/dL (0.2-1.0); Blood Urea Nitrogen 39 mg/dL (9-23); Calcium 8.3 mg/dL (8.7-10.4); Chloride 108 mmol/L (98-107)
--- NOTE | 2025-04-16 08:58 | ECG ---
[facility] Test Date: 2025-04-15 Test Time: 15:08:28 Pat Name: DELMA PRESCOTT Department: [facility] ED Room: [address] [place] [address] A Gender: F Safety Sitter: lizzy : 1935 Requested By: MADAN METZGER Order Number: [id number] Reading MD: Tutu Groves Measurements Intervals [place] Rate: 118 P: -3 NM: 150 QRS: 188 QRSD: 109 T: 22 QT: 310 QTc: 435 Interpretive Statements Sinus tachycardia Atrial premature complexes Probable left atrial enlargement Posterior infarct, acute (LCx) Electronically Signed On 04-16-2025 9:05:52 PDT by Tutu Groves Please click the below link to view image of tracing.
[2025-04-16] MEDS: PANTOPRAZOLE 40 MG/10 ML VIAL INJ IV SCH (10:46)
--- NOTE | 2025-04-16 11:22 | DVH ---
Date: 04/16/2025 10:42 AM Examination: XY KUB ABDOMEN SINGLE VIEW History: SBO Comparison: None TECHNIQUE: Frontal views of the abdomen was obtained. FINDINGS: There is marked gaseous distention of the stomach. There are moderately dilated multiple loops of sma ll bowel. Cholecystecomy clips are noted. Bilateral hip arthroplasty. Partially visualized degenerati ve changes in the lower lumbar spine. The bones are demineralized. IMPRESSION: 1. Moderately dilated multiple loops of small bowel and marked gaseous distention of the stomach. Rec ommend SBFT following placement of NG tube.
[2025-04-16 11:50] VITALS: PULSE 85; RESP 24; O2SAT 94
--- NOTE | 2025-04-16 13:28 | DVH ---
MRCP Exam Date: 04/16/2025 12:20 PM Comparison: CT abdomen and pelvis 04/15/2025. History: dilated CBD, transaminitis Technique: 3D MIP images versus reconstructed and reviewed. FINDINGS: The gallbladder is surgically absent. There is mild intrahepatic biliary ductal dilatation. Common bile duct is moderately dilated measures up to 1.7 cm. There is a CBD stone measuring 1 cm. Moderatel y dilated multiple loops of small bowel are again identified. There is slightly improved distention o f the stomach. There is an exophytic right renal cortical cyst . IMPRESSION: 1. Status post prior cholecystectomy. Intra and extrahepatic biliary ductal dilatation. 2. CBD stone measures up to 1 cm. 3. Moderately dilated multiple loops of small bowel concerning for small bowel obstruction.
--- NOTE | 2025-04-16 15:52 | DVHPN2 ---
Subjective Patient denies any symptoms. Reviewed: Care Plan, H&P, Labs, Medications Changes from previous H/P or p: No Changes General: Per HPI Objective Vitals Vital Signs Date Time Temp Pulse Resp B/P (MAP) Pulse Ox O2 Delivery O2 Flow Rate FiO2 04/16/25 11:50 85 24 94 Nasal Cannula* 2 28 04/16/25 11:00 155/68 (97) 04/16/25 09:00 98.7 98.7 Intake/Output Intake and Output 04/16/25 07:00 Intake Total 1050 ml Output Total 535 ml Balance 515 ml Intake IV Total 1050 ml Output Urine Total 35 ml Gastric Drainage Total 500 ml General Appearance: Alert, Cooperative, Other (Alert to name) HEENT: Atraumatic, PERRLA Lungs: Clear to auscultation, Normal air movement Cardiovascular: Normal S1, Normal S2 Abdomen: Other (Tenderness with light palpation to epigastric and right upper quadrant area) Musculoskeletal: Normal sensory function, Normal motor function Skin: Dry, Intact Psych/Mental Status: Mental status NL, Mood NL Medications Current Medications Medications Dose Ordered Sig/Gregory Route Start Time Stop Time Status Last Admin Dose Admin Ceftriaxone Sodium 50 ml @ 100 mls/hr DAILY@09 IV 04/16/25 09:00 04/16/25 10:46 100 MLS/HR Pantoprazole Sodium 40 mg DAILY IV 04/16/25 10:00 04/16/25 10:46 40 MG Ondansetron HCl 4 mg Q4HP PRN IV 04/15/25 19:30 Hydromorphone HCl 0.25 mg Q4HPRN PRN IV 04/15/25 19:30 Laboratory Results Laboratory Tests 04/16/25 07:21 Chemistry Test 04/16/25 07:21 Albumin 4.1 g/dL (3.2-4.8) Calcium Level 8.3 mg/dL (8.7-10.4) L Total Protein 6.7 g/dL (5.7-8.2) LFT Test 04/16/25 07:21 Alanine Aminotransferase (ALT) 178 U/L (7-40) H Alkaline Phosphatase 109 U/L (46-116) Aspartate Amino Transferase (AST) 109 U/L (13-40) H Total Bilirubin 0.9 mg/dL (0.2-1.0) Urinalysis Test 04/15/25 15:45 Urine Color Light-orange (Yellow) Urine Clarity Ex.turbid (Clear) Urine pH 5.5 (5.0-9.0) Urine Specific [place] 1.028 (1.001-1.035) Urine Protein 1+ (Negative) H Urine Ketones Negative (Negative) Urine Blood 1+ /uL (Negative) H Urine Nitrite Negative (Negative) Urine Bilirubin Negative (Negative) Urine Urobilinogen 3 mg/dL (Negative) H Urine Leukocyte Esterase Negative /uL (Negative) Urine RBC 16 /hpf (0 - 4) Urine Microscopic WBC 1 /HPF (0-5) Urine Squamous Epithelial Cells Mod /hpf (<5) Urine Amorphous Crystals Few /hpf (None Seen) Urine Bacteria Few /hpf (None Seen) H Urine Hyaline Casts Few /lpf (0 - 2) Urine Mucus Few (None Seen) Urine Glucose Normal mg/dL (Normal) Labs and/or images reviewed: Labs reviewed by me, Image(s) reviewed by me Assessment/Plan Assessment/Plan Impression: -choledocholithiasis -acute pancreatitis -small-bowel obstruction -dementia -cachexia -sepsis -COPD -GERD Plan: -surgical consultation -start IV fluids with potassium replacement -echocardiogram -change antibiotic therapy to Zosyn -check CMP, CBC in a.m. -pain management -continue NPO status Total time spent with patient discussing and formulating plan of care: 35 minutes. This medical document was created using an electronic medical record system with [employer] dictation system. Although this document has been carefully reviewed, there may still be some phonetic and typographical errors. These areas are purely typographical due to imperfections of the software programs, and do not reflect any compromise in the patient's medical care. Plan discussed with: Patient, Other (RN) Date of Service: Apr 16, 2025 Billing Provider: JAYDEN HILL NP Common Visit Codes: [id number] INP/OBS CARE(HIGH) JAYDEN HILL NP Apr 16, 2025 15:52
[2025-04-16] MEDS: D5W/SOD CHL 0.45%/KCL 20MEQ 1,000 ML IV SCH (16:00)
[2025-04-16 21:00] VITALS: BP 161/70; PULSE 92; RESP 16; TEMP 98.6; O2SAT 92
[2025-04-16] MEDS: PIPERACILLIN-TAZOB 3.375GM 100 ML IV SCH (21:48)
[2025-04-17] VITALS (10 sets, daily range): BP systolic 136–166; BP diastolic 66–89; PULSE 74–96; RESP 16–18; TEMP 98.1–99.1; O2SAT 92–100
[2025-04-17] MEDS ORDERED: CHOL500035 PO (02:33)
[2025-04-17] MEDS ORDERED: ALBUAER3 IN (02:37)
[2025-04-17] MEDS ORDERED: PERCOT PO (02:39)
[2025-04-17] MEDS: HYDROmorphone HCL 2 MG/ML VL/or syr IV PRN (05:15)
[2025-04-17 07:02] LABS: Hematocrit 39.5 % (36.0-46.0); Hemoglobin 13.3 g/dL (12.2-16.2); Mean Corpuscular Hemoglobin 34.0 pg (28.0-32.0); Mean Corpuscular Volume 101.1 fL (80.0-100.0); Nucleated Red Blood Cells % 0.1 %
[2025-04-17 07:17] LABS: Albumin 4.0 g/dL (3.2-4.8); Alkaline Phosphatase 90 U/L (46-116); Anion Gap 13 (5-15); BUN/Creatinine Ratio 39.0 (10.0-20.0); Carbon Dioxide 24 mmol/L (20-31); Potassium 4.0 mmol/L (3.5-5.1); Total Protein 6.6 g/dL (5.7-8.2)
[2025-04-17 07:18] LABS: Bilirubin, Total 1.1 mg/dL (0.2-1.0)
[2025-04-17 07:21] LABS: Alanine Aminotransferase 127 U/L (7-40); Blood Urea Nitrogen 32 mg/dL (9-23); Calcium 8.4 mg/dL (8.7-10.4); Chloride 109 mmol/L (98-107); Glucose 112 mg/dL (74-106); Sodium 146 mmol/L (136-145)
[2025-04-17 08:01] LABS: Anisocytosis Slight; Macrocytosis Slight
[2025-04-17 08:04] LABS: Ovalocytes FEW
--- NOTE | 2025-04-17 09:34 | DVHPN2 ---
Subjective Patient denies any symptoms. Reviewed: Care Plan, H&P, Labs, Medications Changes from previous H/P or p: No Changes General: Per HPI Objective Vitals Vital Signs Date Time Temp Pulse Resp B/P (MAP) Pulse Ox O2 Delivery O2 Flow Rate FiO2 04/17/25 05:45 87 16 161/86 04/17/25 05:00 98.1 96 98.1 04/16/25 11:50 Nasal Cannula* 2 28 Intake/Output Intake and Output 04/17/25 07:00 Intake Total 200 ml Balance 200 ml Intake Oral 0 ml IV Total 100 ml Tube Feeding 100 ml General Appearance: Alert, Cooperative, mild distress, Other (Alert to name) HEENT: Atraumatic, PERRLA Lungs: Clear to auscultation, Normal air movement Cardiovascular: Normal S1, Normal S2 Abdomen: Other (Tenderness with light palpation to epigastric and right upper quadrant area) Musculoskeletal: Normal sensory function, Normal motor function Skin: Dry, Intact Psych/Mental Status: Mental status NL, Mood NL Medications Current Medications Medications Dose Ordered Sig/Gregory Route Start Time Stop Time Status Last Admin Dose Admin Pantoprazole Sodium 40 mg DAILY IV 04/16/25 10:00 04/16/25 10:46 40 MG Ondansetron HCl 4 mg Q4HP PRN IV 04/15/25 19:30 Hydromorphone HCl 0.25 mg Q4HPRN PRN IV 04/15/25 19:30 04/17/25 05:15 0.25 MG Piperacillin Sod/ Tazobactam Sod 100 ml @ 25 mls/hr Q8HR IV 04/16/25 22:00 04/17/25 05:14 25 MLS/HR Potassium Chloride/Dextrose/ Sod Cl 1,000 ml @ 100 mls/hr Q10H IV 04/16/25 16:00 04/16/25 16:00 100 MLS/HR Hydralazine HCl 10 mg Q6HP PRN IV 04/17/25 09:30 UNV Laboratory Results Laboratory Tests 04/17/25 06:08 Chemistry Test 04/17/25 06:08 Albumin 4.0 g/dL (3.2-4.8) Calcium Level 8.4 mg/dL (8.7-10.4) L Total Protein 6.6 g/dL (5.7-8.2) LFT Test 04/17/25 06:08 Alanine Aminotransferase (ALT) 127 U/L (7-40) H Alkaline Phosphatase 90 U/L (46-116) Aspartate Amino Transferase (AST) 69 U/L (13-40) H Total Bilirubin 1.1 mg/dL (0.2-1.0) H Urinalysis Test 04/15/25 15:45 Urine Color Light-orange (Yellow) Urine Clarity Ex.turbid (Clear) Urine pH 5.5 (5.0-9.0) Urine Specific [place] 1.028 (1.001-1.035) Urine Protein 1+ (Negative) H Urine Ketones Negative (Negative) Urine Blood 1+ /uL (Negative) H Urine Nitrite Negative (Negative) Urine Bilirubin Negative (Negative) Urine Urobilinogen 3 mg/dL (Negative) H Urine Leukocyte Esterase Negative /uL (Negative) Urine RBC 16 /hpf (0 - 4) Urine Microscopic WBC 1 /HPF (0-5) Urine Squamous Epithelial Cells Mod /hpf (<5) Urine Amorphous Crystals Few /hpf (None Seen) Urine Bacteria Few /hpf (None Seen) H Urine Hyaline Casts Few /lpf (0 - 2) Urine Mucus Few (None Seen) Urine Glucose Normal mg/dL (Normal) Labs and/or images reviewed: Labs reviewed by me, Image(s) reviewed by me Assessment/Plan Assessment/Plan Impression: -choledocholithiasis -acute pancreatitis -small-bowel obstruction -dementia -cachexia -sepsis -COPD -GERD Plan: Events: White blood cell count improved. Continues to have right upper quadrant epigastric pain. -repeat KUB -surgical consultation : Recommendations appreciated -GI consultation -start IV fluids with potassium replacement -echocardiogram -change antibiotic therapy to Zosyn -check CMP, CBC in a.m. -pain management -continue NPO status -discussed with the patient's family of the need for possible transfer for ERCP. Total time spent with patient discussing and formulating plan of care: 35 minutes. This medical document was created using an electronic medical record system with [employer] system. Although this document has been carefully reviewed, there may still be some phonetic and typographical errors. These areas are purely typographical due to imperfections of the software programs, and do not reflect any compromise in the patient's medical care. Plan discussed with: Patient, Other (RN) My Orders Orders - JAYDEN HILL NP Procedure Category Date Status Time Piperacillin-Tazob PHA 04/16/25 In Process 3.375gm (Zosyn 3.375g 22:00 D5w/Sod Chl 0.45%/Kcl PHA 04/16/25 In Process 20meq 16:00 Echo 2d Mode Cardiac US 04/17/25 Logged DOP 15:46 Lipase LAB 04/17/25 Logged 08:39 Hydralazine Injection PHA 04/17/25 Logged (Apresoline Inject 09:30 Kub Abdomen Single XY 04/17/25 Logged View 09:18 Complete Blood Count LAB 04/18/25 Verified 04:00 Comprehensive LAB 04/18/25 Verified Metabolic Panel 04:00 Date of Service: Apr 17, 2025 Billing Provider: JAYDEN HILL NP Common Visit Codes: [id number] INP/OBS CARE(HIGH) JAYDEN HILL NP Apr 17, 2025 09:34
--- NOTE | 2025-04-17 10:07 | DVH ---
ABDOMEN X-RAY: 1 view(s) was obtained HISTORY: assess SBO COMPARISON: XY KUB ABDOMEN SINGLE VIEW on DOS: 04/16/25 FINDINGS: There are slightly increased dilatation of multiple loops of small bowel. Marked gaseous distention o f the stomach is again noted. Cholycystectomy clips are present. Bilateral hip arthroplasties are in place. Multi level degenerative changes in the lumbar spine. The bones are demineralized IMPRESSION: 1. Slightly increased moderate dilatation of multiple loops of small bowel concerning for small bowel obstruction. Persistent marked distention of stomach.
--- NOTE | 2025-04-17 12:11 | DVH ---
EXAM: XY CHEST XRAY 1 VIEW HISTORY: NG TUBE PLACEMENT COMPARISON: XY CHEST XRAY 1 VIEW on DOS: 04/15/25, XY CHEST XRAY 1 VIEW on DOS: 04/15/25 TECHNIQUE: Portable upright AP view of the chest was performed. FINDINGS: NG tube is present with its tip in the duodenal bulb. The stomach is quite gas distended. There is l eft basilar opacity partially obscuring the left hemidiaphragm and left costophrenic angle, increased versus prior chest imaging. No pneumothorax. The heart is not enlarged. The aortic arch is calcific. Surgical clips in the right upper quadrant are consistent with prior cholecystectomy. The bilateral humeral heads are high-riding consistent with significant rotator cuff tendinopathy. There are posto perative changes of right distal clavicle resection. IMPRESSION: 1. Increased left basilar infiltrate and effusion. Correlate for symptoms of pneumonia. 2. NG tube tip is in the duodenal bulb. The stomach is quite gas distended.
--- NOTE | 2025-04-17 13:11 | DVH ---
CHEST RADIOGRAPH Indication: recheck ng tube placement Technique: Single frontal view of the chest was obtained Comparison: XY CHEST XRAY 1 VIEW on DOS: 04/17/25, XY CHEST XRAY 1 VIEW on DOS: 04/15/25, XY CHEST XR AY 1 VIEW on DOS: 04/15/25 FINDINGS: Lines and Tubes: Enteric tube noted in the gas distended stomach Lungs: Atelectasis in the right lung base. Unimproved opacity and left base. Pleura: No effusion. No pneumothorax. Cardiomediastinal contours: Unremarkable Bones: No acute osseous abnormality. IMPRESSION: 1. Enteric tube noted in the gas distended stomach 2. Atelectasis in the right lung base. 3. Unimproved opacity in the left base.
--- NOTE | 2025-04-17 14:53 | DVHINCON2 ---
GI Consult Consult Note GI consult note Date of Consultation: 04/17/2025 Chief Complaint: CBD stone, pancreatitis Referring Physician: Logan ESPINOSA H&P: 89-year-old female admitted for abdominal pain. Mostly complaining of left- sided abdominal pain for the past three days. No nausea or vomiting. Patient has history of dementia and has been noticed to have worsening confusion from baseline. Past Medical History: Dementia, COPD, GERD, asthma Past Surgical History: Hysterectomy Social History: NO smoking, drinking ETOH and use of illegal drugs. Family History: Noncontributory Review of Systems: Constitutional: no fever, chill, weight loss HEENT: no eye pain, no hearing loss, no oral lesion, no scleral icterus Heart: no chest pain, no chest pressure Lung: no cough, no dyspnea with exertion Abdomen: see HPI Physical exam: General: AAO, mild distress Chest: lung diaz clear to auscultation Heart: RRR, no murmur Abdomen: non-distended, mild tenderness to palpation, +BS Labs: Labs Test 04/17/25 06:08 04/16/25 11:27 04/15/25 15:45 Range/Units White Blood Count 7.4 # 4.4-10.8 10^3/uL Red Blood Count 3.91 L 4.0-5.20 10^6/uL Hemoglobin 13.3 12.2-16.2 g/dL Hematocrit 39.5 36.0-46.0 % Mean Corpuscular Volume 101.1 H 80.0-100.0 fL Mean Corpuscular Hemoglobin 34.0 H 28.0-32.0 pg Mean Corpuscular Hemoglobin Concent 33.6 32.0-36.0 g/dL Red Cell Distribution Width 21.5 H 11.8-14.3 % Platelet Count 165 140-450 10^3/uL Mean Platelet Volume 9.2 6.9-10.8 fL Neutrophils (%) (Auto) 81.3 H 37.0-80.0 % Lymphocytes (%) (Auto) 10.7 10.0-50.0 % Monocytes (%) (Auto) 7.4 0.0-12.0 % Eosinophils (%) (Auto) 0.5 0.0-7.0 % Basophils (%) (Auto) 0.1 0.0-2.0 % Neutrophils # (Auto) 6.0 1.6-8.6 10 ^3/uL Lymphocytes # (Auto) 0.8 0.4-5.4 10 ^3/uL Monocytes # (Auto) 0.6 0-1.3 10 ^3/uL Eosinophils # (Auto) 0 0-0.8 10 ^3/uL Basophils # (Auto) 0 0-0.2 10 ^3/uL Nucleated Red Blood Cells 0.1 % Platelet Estimate Adequate Poikilocytosis (manual) Slight Anisocytosis (manual) Slight Macrocytosis Slight Target Cells Few Ovalocytes Few Schistocytes Few Sodium Level 146 H 136-145 mmol/L Potassium Level 4.0 3.5-5.1 mmol/L Chloride Level 109 H 98-107 mmol/L Carbon Dioxide Level 24 20-31 mmol/L Anion Gap 13 5-15 Blood Urea Nitrogen 32 H 9-23 mg/dL Creatinine 0.82 0.550-1.02 mg/dL Glomerular Filtration Rate Calc 68 >90 mL/min BUN/Creatinine Ratio 39.0 H 10.0-20.0 Serum Glucose 112 H 74-106 mg/dL Calcium Level 8.4 L 8.7-10.4 mg/dL Total Bilirubin 1.1 H 0.2-1.0 mg/dL Aspartate Amino Transferase (AST) 69 H 13-40 U/L Alanine Aminotransferase (ALT) 127 H 7-40 U/L Alkaline Phosphatase 90 46-116 U/L Total Protein 6.6 5.7-8.2 g/dL Albumin 4.0 3.2-4.8 g/dL Lipase 30 12-53 U/L Lactic Acid Level 1.4 0.4-2.0 mmol/L Urine Color Light-orange Yellow Urine Clarity Ex.turbid Clear Urine pH 5.5 5.0-9.0 Urine Specific [place] 1.028 1.001-1.035 Urine Protein 1+ H Negative Urine Ketones Negative Negative Urine Blood 1+ H Negative /uL Urine Nitrite Negative Negative Urine Bilirubin Negative Negative Urine Urobilinogen 3 H Negative mg/dL Urine Leukocyte Esterase Negative Negative /uL Urine RBC 16 0 - 4 /hpf Urine Microscopic WBC 1 0-5 /HPF Urine Squamous Epithelial Cells Mod <5 /hpf Urine Amorphous Crystals Few None Seen /hpf Urine Bacteria Few H None Seen /hpf Urine Hyaline Casts Few 0 - 2 /lpf Urine Mucus Few None Seen Urine Glucose Normal Normal mg/dL Imaging: CT abdomen pelvis IMPRESSION: 1. Stomach and small bowel dilation with differential small bowel caliber concerning for high-grade obstruction. 2. Mild intrahepatic biliary ductal dilation. 3. Bibasilar atelectasis and/or airspace disease. 4. Right renal hypoattenuating lesion measuring 3.0 cm, not definitely cystic. Nonemergent follow-up renal ultrasound recommended. KUB IMPRESSION: 1. Moderately dilated multiple loops of small bowel and marked gaseous distention of the stomach. Recommend SBFT following placement of NG tube. MRCP IMPRESSION: 1. Status post prior cholecystectomy. Intra and extrahepatic biliary ductal dilatation. 2. CBD stone measures up to 1 cm. 3. Moderately dilated multiple loops of small bowel concerning for small bowel obstruction. Assessment: Choledocholithiasis Small-bowel obstruction possible secondary to gallstone ileus Pancreatitis Dementia Plan: Discussed with Dr. Cui NPO NG tube Recommend higher level of care for possible ERCP Discussed plan with patient and family at bedside and RN Thank you for this consult Date of Service: Apr 17, 2025 Billing Provider: AMY WALTON Common Visit Codes: CONSULT ONLY Consultation Codes: [id number] CONSULT <60MIN AMY WALTON Apr 17, 2025 14:53
--- NOTE | 2025-04-17 21:35 | DVHPN2 ---
Progress Note Date Seen: Apr 17, 2025 Medical Necessity Reason Pt with a Central, PICC or Fol: No Objective vital signs Vital Sign Date Time Temp Pulse Resp B/P (MAP) Pulse Ox O2 Delivery O2 Flow Rate FiO2 04/17/25 21:20 74 16 122/61 04/17/25 13:00 99.0 92 99.0 04/17/25 08:00 Nasal Cannula* 2 28 Total Intake and Output 04/16/25 04/16/25 04/17/25 15:00 23:00 07:00 Intake Total 200 ml Balance 200 ml medications Current Medications Medications Dose Ordered Sig/Gregory Route Start Time Stop Time Status Last Admin Dose Admin Pantoprazole Sodium 40 mg DAILY IV 04/16/25 10:00 04/17/25 09:38 40 MG Ondansetron HCl 4 mg Q4HP PRN IV 04/15/25 19:30 Hydromorphone HCl 0.25 mg Q4HPRN PRN IV 04/15/25 19:30 04/17/25 21:20 0.25 MG Piperacillin Sod/ Tazobactam Sod 100 ml @ 25 mls/hr Q8HR IV 04/16/25 22:00 04/17/25 21:17 25 MLS/HR Potassium Chloride/Dextrose/ Sod Cl 1,000 ml @ 100 mls/hr Q10H IV 04/16/25 16:00 04/17/25 12:00 100 MLS/HR Hydralazine HCl 10 mg Q6HP PRN IV 04/17/25 09:30 Albuterol 2.5 mg Q4HPRN PRN NEB 04/17/25 20:30 Ipratropium [place] 0.5 mg Q4HPRN PRN NEB 04/17/25 20:30 laboratory and microbiology Laboratory Tests 04/17/25 06:08 Test 04/17/25 06:08 Range/Units Serum Glucose 112 H 74-106 mg/dL Problem List/Assessment/Plan Problem List/Assessment/Plan AFEBRILE VSS ABD SOT LESS DISTENDED LESS TENDER WBC TRENDING DOWN LFT ELEVATED MRCP CBD STONE NG IN PLACE CONSIDER TRANSFER TO HIGHER LEVEL OF CARE FOR ERCP AND POSSIBLE SURGERY INDICATED SITUATION EXPLAINED TO FAMILY NURSE AT BEDSIDE Plan discussed with: Other GLORIA MCNEAL MD Apr 17, 2025 21:35
[2025-04-17] MEDS: ALBUTEROL SULF 2.5 MG/0.5ML(0.5%) NEB SOLN NEB PRN (21:53)
[2025-04-17] MEDS: IPRATROPIUM BROM 0.5 MG/2.5ML INH SOL NEB PRN (21:53)
[2025-04-18] VITALS (11 sets, daily range): BP systolic 125–141; BP diastolic 58–79; PULSE 66–79; RESP 16–20; TEMP 97.8–98.6; O2SAT 91–96
--- NOTE | 2025-04-18 00:34 | DVH ---
CHEST RADIOGRAPH Indication: NG tube placemenent Technique: Single frontal view of the chest was obtained COMPARISON: XY CHEST XRAY 1 VIEW on DOS: 04/17/25, XY CHEST XRAY 1 VIEW on DOS: 04/17/25, XY CHEST XR AY 1 VIEW on DOS: 04/15/25, XY CHEST XRAY 1 VIEW on DOS: 04/15/25 FINDINGS: Lines and Tubes: Enteric catheter tip looped back upon itself, presumably within a hiatal hernia. Lungs: Moderate bibasilar atelectasis. Pleura: No effusion. No pneumothorax. Cardiomediastinal contours: Cardiomegaly. Bones: Unremarkable IMPRESSION: 1. Enteric catheter tip looped back upon itself, presumably within a hiatal hernia. 2. Cardiomegaly. 3. Bibasilar atelectasis.
[2025-04-18 07:28] LABS: Hematocrit 39.4 % (36.0-46.0); Hemoglobin 12.9 g/dL (12.2-16.2); Mean Corpuscular Hemoglobin 33.2 pg (28.0-32.0); Mean Corpuscular Volume 101.5 fL (80.0-100.0); Nucleated Red Blood Cells % 0.1 %
[2025-04-18 07:51] LABS: Alkaline Phosphatase 75 U/L (46-116); Anion Gap 11 (5-15); BUN/Creatinine Ratio 29.1 (10.0-20.0); Blood Urea Nitrogen 23 mg/dL (9-23); Carbon Dioxide 27 mmol/L (20-31); Potassium 3.8 mmol/L (3.5-5.1); Total Protein 6.3 g/dL (5.7-8.2)
[2025-04-18 07:52] LABS: Albumin 3.8 g/dL (3.2-4.8); Bilirubin, Total 1.1 mg/dL (0.2-1.0)
[2025-04-18 07:55] LABS: Alanine Aminotransferase 91 U/L (7-40); Calcium 8.4 mg/dL (8.7-10.4); Chloride 109 mmol/L (98-107); Glucose 118 mg/dL (74-106); Sodium 147 mmol/L (136-145)
--- NOTE | 2025-04-18 12:11 | DVHPN2 ---
Subjective No changes Patient waiting to be transferred to higher level of care Reviewed: Care Plan, H&P, Labs, Medications Changes from previous H/P or p: No Changes General: Per HPI Objective Vitals Vital Signs Date Time Temp Pulse Resp B/P (MAP) Pulse Ox O2 Delivery O2 Flow Rate FiO2 04/18/25 10:08 74 17 125/67 04/18/25 10:00 96 Nasal Cannula 2.0 04/18/25 10:00 28 04/18/25 09:23 97.9 97.9 Intake/Output Intake and Output 04/18/25 07:00 Intake Total 100 ml Output Total 1775 ml Balance -1675 ml Intake Oral 0 ml IV Total 100 ml Output Urine Total 450 ml Gastric Drainage Total 1325 ml Exam General: AAO, mild distress Chest: lung diaz clear to auscultation Heart: RRR, no murmur Abdomen: non-distended, mild tenderness to palpation, +BS Medications Current Medications Medications Dose Ordered Sig/Gregory Route Start Time Stop Time Status Last Admin Dose Admin Pantoprazole Sodium 40 mg DAILY IV 04/16/25 10:00 04/18/25 09:57 40 MG Ondansetron HCl 4 mg Q4HP PRN IV 04/15/25 19:30 Hydromorphone HCl 0.25 mg Q4HPRN PRN IV 04/15/25 19:30 04/18/25 10:08 0.25 MG Piperacillin Sod/ Tazobactam Sod 100 ml @ 25 mls/hr Q8HR IV 04/16/25 22:00 04/18/25 05:38 25 MLS/HR Potassium Chloride/Dextrose/ Sod Cl 1,000 ml @ 100 mls/hr Q10H IV 04/16/25 16:00 04/17/25 12:00 100 MLS/HR Hydralazine HCl 10 mg Q6HP PRN IV 04/17/25 09:30 Albuterol 2.5 mg Q4HPRN PRN NEB 04/17/25 20:30 04/17/25 21:53 2.5 MG Ipratropium [place] 0.5 mg Q4HPRN PRN NEB 04/17/25 20:30 04/17/25 21:53 0.5 MG Laboratory Results Laboratory Tests 04/18/25 04:49 Chemistry Test 04/18/25 04:49 Albumin 3.8 g/dL (3.2-4.8) Calcium Level 8.4 mg/dL (8.7-10.4) L Total Protein 6.3 g/dL (5.7-8.2) LFT Test 04/18/25 04:49 Alanine Aminotransferase (ALT) 91 U/L (7-40) H Alkaline Phosphatase 75 U/L (46-116) Aspartate Amino Transferase (AST) 43 U/L (13-40) H Total Bilirubin 1.1 mg/dL (0.2-1.0) H Urinalysis Test 04/15/25 15:45 Urine Color Light-orange (Yellow) Urine Clarity Ex.turbid (Clear) Urine pH 5.5 (5.0-9.0) Urine Specific [place] 1.028 (1.001-1.035) Urine Protein 1+ (Negative) H Urine Ketones Negative (Negative) Urine Blood 1+ /uL (Negative) H Urine Nitrite Negative (Negative) Urine Bilirubin Negative (Negative) Urine Urobilinogen 3 mg/dL (Negative) H Urine Leukocyte Esterase Negative /uL (Negative) Urine RBC 16 /hpf (0 - 4) Urine Microscopic WBC 1 /HPF (0-5) Urine Squamous Epithelial Cells Mod /hpf (<5) Urine Amorphous Crystals Few /hpf (None Seen) Urine Bacteria Few /hpf (None Seen) H Urine Hyaline Casts Few /lpf (0 - 2) Urine Mucus Few (None Seen) Urine Glucose Normal mg/dL (Normal) Labs and/or images reviewed: Labs reviewed by me, Image(s) reviewed by me Assessment/Plan Assessment/Plan Choledocholithiasis Small-bowel obstruction possible secondary to gallstone ileus Pancreatitis Dementia Plan: Discussed with Dr. Cui NPO NG tube Recommend higher level of care for possible ERCP Plan discussed with: Other (Daughter at bedside) Date of Service: Apr 18, 2025 Billing Provider: AMY WALTON Common Visit Codes: [id number] INP/OBS CARE(HIGH) AMY WALTON Apr 18, 2025 12:11
[2025-04-18] MEDS ORDERED: CLINIMIX PER PHARMACY 0 ML IV SCH (13:45)
[2025-04-18] MEDS: D5W/SOD CHL 0.45%/KCL 20MEQ 1,000 ML IV SCH (13:45)
--- NOTE | 2025-04-18 13:55 | DVHDS2 ---
Discharge Summary Date of Admission Apr 15, 2025 at 19:23 Date of Discharge: Apr 18, 2025 Admitting Diagnosis Abdominal pain secondary to small-bowel obstruction Labs/Diagnostic Data: Laboratory Results Test 04/18/25 04:49 04/17/25 06:08 04/16/25 11:27 04/15/25 15:45 White Blood Count 5.7 10^3/uL (4.4-10.8) Red Blood Count 3.88 10^6/uL (4.0-5.20) Hemoglobin 12.9 g/dL (12.2-16.2) Hematocrit 39.4 % (36.0-46.0) Mean Corpuscular Volume 101.5 fL (80.0-100.0) Mean Corpuscular Hemoglobin 33.2 pg (28.0-32.0) Mean Corpuscular Hemoglobin Concent 32.7 g/dL (32.0-36.0) Red Cell Distribution Width 20.5 % (11.8-14.3) Platelet Count 147 10^3/uL (140-450) Mean Platelet Volume 9.2 fL (6.9-10.8) Neutrophils (%) (Auto) 75.7 % (37.0-80.0) Lymphocytes (%) (Auto) 14.9 % (10.0-50.0) Monocytes (%) (Auto) 7.5 % (0.0-12.0) Eosinophils (%) (Auto) 1.5 % (0.0-7.0) Basophils (%) (Auto) 0.4 % (0.0-2.0) Neutrophils # (Auto) 4.3 10 ^3/uL (1.6-8.6) Lymphocytes # (Auto) 0.8 10 ^3/uL (0.4-5.4) Monocytes # (Auto) 0.4 10 ^3/uL (0-1.3) Eosinophils # (Auto) 0.1 10 ^3/uL (0-0.8) Basophils # (Auto) 0 10 ^3/uL (0-0.2) Nucleated Red Blood Cells 0.1 % Sodium Level 147 mmol/L (136-145) Potassium Level 3.8 mmol/L (3.5-5.1) Chloride Level 109 mmol/L (98-107) Carbon Dioxide Level 27 mmol/L (20-31) Anion Gap 11 (5-15) Blood Urea Nitrogen 23 mg/dL (9-23) Creatinine 0.79 mg/dL (0.550-1.02) Glomerular Filtration Rate Calc 71 mL/min (>90) BUN/Creatinine Ratio 29.1 (10.0-20.0) Serum Glucose 118 mg/dL (74-106) Calcium Level 8.4 mg/dL (8.7-10.4) Total Bilirubin 1.1 mg/dL (0.2-1.0) Aspartate Amino Transferase (AST) 43 U/L (13-40) Alanine Aminotransferase (ALT) 91 U/L (7-40) Alkaline Phosphatase 75 U/L (46-116) Total Protein 6.3 g/dL (5.7-8.2) Albumin 3.8 g/dL (3.2-4.8) Platelet Estimate Adequate Poikilocytosis (manual) Slight Anisocytosis (manual) Slight Macrocytosis Slight Target Cells Few Ovalocytes Few Schistocytes Few Lipase 30 U/L (12-53) Lactic Acid Level 1.4 mmol/L (0.4-2.0) Urine Color Light-orange (Yellow) Urine Clarity Ex.turbid (Clear) Urine pH 5.5 (5.0-9.0) Urine Specific [place] 1.028 (1.001-1.035) Urine Protein 1+ (Negative) Urine Ketones Negative (Negative) Urine Blood 1+ /uL (Negative) Urine Nitrite Negative (Negative) Urine Bilirubin Negative (Negative) Urine Urobilinogen 3 mg/dL (Negative) Urine Leukocyte Esterase Negative /uL (Negative) Urine RBC 16 /hpf (0 - 4) Urine Microscopic WBC 1 /HPF (0-5) Urine Squamous Epithelial Cells Mod /hpf (<5) Urine Amorphous Crystals Few /hpf (None Seen) Urine Bacteria Few /hpf (None Seen) Urine Hyaline Casts Few /lpf (0 - 2) Urine Mucus Few (None Seen) Urine Glucose Normal mg/dL (Normal) Other Laboratory Tests 04/18/25 04:49 Brief Hx & Hospital Course: History of Present Illness 89-year-old female presents for evaluation of abdominal pain. Patient with dementia noted by family members to be complaining of abdominal pain for the past two days. There is no nausea or vomiting. Family also reports worsening confusion from baseline. Course of hospitalization: Patient had MRCP which revealed 1 cm CBD stone. Patient also had elevated lipase. Consultation was obtained with both Gastroenterology and General surgery. KUB does reveal persistent gastric as well as small-bowel dilatation. NG tube was placed with immediate decompression of abdomen, as well as greater than 1 L of NG secretions removed. Patient's lipase is now within normal limits. Patient continues to have some right upper quadrant abdominal pain. She was started on IV Zosyn with improvement with the patient's white blood cell count. Patient continues to be NPO with PPN started. Patient will be transferred to higher level of care for ERCP, and further treatment for probable associated ileus. Discussion was made with the patient's family who were bedside who are agreeable to patient being transferred. All questions answered. Physical examination General: Alert and Oriented x3. No acute distress. Well-nourished. Eyes: EOMI. Anicteric. HENT: Moist mucous membranes. Lungs: Clear to auscultation bilaterally. No accessory muscle use. Cardiovascular: Regular rate and rhythm. No murmur. No JVD. Abdomen: Soft, non-tender and non-distended. No palpable masses. Extremities: No edema. Non-tender. Skin: No rashes or lesions. Warm. Neurologic: No focal neurological deficits. CN II-XII grossly intact, but not individually tested. Psychiatric: Cooperative. Appropriate mood and affect. Total time spent with patient discussing and formulating plan of care: 35 minutes. This medical document was created using an electronic medical record system with [employer] dictation system. Although this document has been carefully reviewed, there may still be some phonetic and typographical errors. These areas are purely typographical due to imperfections of the software programs, and do not reflect any compromise in the patient's medical care. Consults/Reason for consult Gastroenterology: Pancreatitis General surgery: Small-bowel obstruction Condition at Discharge: Poor Final Diagnosis/Problems List CBD stone with pancreatitis -choledocholithiasis -acute pancreatitis -small-bowel obstruction -dementia -cachexia -sepsis -COPD -GERD Discharge Disposition: Acute Care Facility Discharge Instruct/Medications Diet: See Comment Diet comment: NPO Activity: No Restrictions, As Tolerated Follow Up/Referral: Per accepting provider Medications: Refer to medication reconciliation form Scheduled Albuterol Sulfate (Ventolin Mdi), 90 MCG IN TID, (Reported) Cholecalciferol (Vitamin D), 5,000 UNIT PO DAILY, (Reported) Fluticasone Propionate (FLOVENT HFA 110Mcg INH), 2 PUFF INH BID Omeprazole (Gnp Omeprazole), 1 TAB PO DAILY, (Reported) Oxycodone W/ Acetaminophen (Percocet 5/325MG), 1 TAB PO QIDPRN, (Reported) Discontinued Medications Gabapentin (Gabapentin), 1 TAB PO TID, (Reported) 36 Discharge Statement: "Patient was advised to return to the ER or call 911 if any headaches, dizziness, shortness of breath, chest pain, abdominal pain, bleeding, fevers, or worsening of medical condition. Patient was counseled about treatment plan, medications, possible side effects, patientverbalized understanding. All questions were answered to the best of my ability. This discharge took greater then 30 minutes in planning, reviewing documentation, counseling the patient, and discussing with other team members." ASSESSMENT ASSESSMENT Assessment CBD stone with pancreatitis Date of Service: Apr 18, 2025 Billing Provider: JAYDEN HILL NP Common Visit Codes: [id number] DISCH DAY >30min JAYDEN HILL NP Apr 18, 2025 13:55
--- NOTE | 2025-04-18 14:46 | DVH ---
Exam: XY KUB ABDOMEN SINGLE VIEW Indication: Ileus Comparison: XY KUB ABDOMEN SINGLE VIEW on DOS: 04/17/25, XY KUB ABDOMEN SINGLE VIEW on DOS: 04/16/25, CT CT AB PEL WO CON-NO ORAL OR IV on DOS: 04/15/25 Technique: 2 radiographic views of the abdomen. Findings: Diffuse distended loops of small bowel. There is no definite evidence for pneumoperitoneum. No abnormal calcifications noted. Impression: Nonspecific bowel-gas pattern. Findings may represent persistent ileus or small-bowel obstruction.
--- NOTE | 2025-04-18 17:23 | DVHPN2 ---
Progress Note Date Seen: Apr 18, 2025 Medical Necessity Reason Pt with a Central, PICC or Fol: No Objective vital signs Vital Sign Date Time Temp Pulse Resp B/P (MAP) Pulse Ox O2 Delivery O2 Flow Rate FiO2 04/18/25 15:08 93 Nasal Cannula* 2 28 04/18/25 13:00 97.8 66 18 137/63 (87) 97.8 Total Intake and Output 04/17/25 04/17/25 04/18/25 15:00 23:00 07:00 Intake Total 0 ml 100 ml Output Total 450 ml 1325 ml Balance -450 ml -1225 ml medications Current Medications Medications Dose Ordered Sig/Gregory Route Start Time Stop Time Status Last Admin Dose Admin Pantoprazole Sodium 40 mg DAILY IV 04/16/25 10:00 04/18/25 09:57 40 MG Ondansetron HCl 4 mg Q4HP PRN IV 04/15/25 19:30 Hydromorphone HCl 0.25 mg Q4HPRN PRN IV 04/15/25 19:30 04/18/25 10:08 0.25 MG Piperacillin Sod/ Tazobactam Sod 100 ml @ 25 mls/hr Q8HR IV 04/16/25 22:00 04/18/25 15:35 25 MLS/HR Hydralazine HCl 10 mg Q6HP PRN IV 04/17/25 09:30 Albuterol 2.5 mg Q4HPRN PRN NEB 04/17/25 20:30 04/17/25 21:53 2.5 MG Ipratropium [place] 0.5 mg Q4HPRN PRN NEB 04/17/25 20:30 04/17/25 21:53 0.5 MG Potassium Chloride/Dextrose/ Sod Cl 1,000 ml @ 60 mls/hr [id number] IV 04/18/25 13:45 04/18/25 13:45 60 MLS/HR Amino Acids 0 ml @ 0 mls/hr PER PHARMACY IV 04/18/25 13:45 laboratory and microbiology Laboratory Tests 04/18/25 04:49 Test 04/18/25 04:49 Range/Units Serum Glucose 118 H 74-106 mg/dL Problem List/Assessment/Plan Problem List/Assessment/Plan AFEBRILE VSS ABD SOT LESS DISTENDED LESS TENDER WBC TRENDING DOWN LFT ELEVATED MRCP CBD STONE NG IN PLACE CONSIDER TRANSFER TO HIGHER LEVEL OF CARE FOR ERCP AND POSSIBLE SURGERY INDICATED SITUATION EXPLAINED TO FAMILY NURSE AT BEDSIDE NO BM REPORTED RECTAL EXAM DONE AT BEDSIDE SHE HAS FECAL IMPACTION RECTAL FECAL DISIMPACTION DONE AT BEDSIDE FAMILY AT BEDSIDE START ON TPN ALLOW ICE CHIPS Plan discussed with: Other GLORIA MCNEAL MD Apr 18, 2025 17:23
[2025-04-18] MEDS ORDERED: TPN PER PHARMACY 0 ML IV SCH (17:45)
[2025-04-18] MEDS: AMINO ACID INFUSION IN D10W 1,000 ML IV SCH (21:11)
[2025-04-18] MEDS ORDERED: DEXTROSE (50%) 50ML SYRG IV SCH (22:00)
[2025-04-18] MEDS: ACCU-CHEK COMFORT CURVE STRIP VI SCH (23:51)
[2025-04-18] MEDS: InsuLIN REG 1unit/0.01ml Soln (100units/ml) SC SCH (23:52)
[2025-04-19] VITALS (8 sets, daily range): BP systolic 130–150; BP diastolic 63–74; PULSE 71–77; RESP 18–20; TEMP 97.1–97.7; O2SAT 91–95
[2025-04-19 05:29] LABS: Alkaline Phosphatase 71 U/L (46-116); Anion Gap 11 (5-15); BUN/Creatinine Ratio 18.2 (10.0-20.0); Blood Urea Nitrogen 14 mg/dL (9-23); Carbon Dioxide 27 mmol/L (20-31); Magnesium 2.2 mg/dL (1.6-2.6); Total Protein 6.4 g/dL (5.7-8.2); Triglycerides 101 mg/dL (< 150)
[2025-04-19 05:30] LABS: Albumin 3.7 g/dL (3.2-4.8)
[2025-04-19 05:32] LABS: Alanine Aminotransferase 74 U/L (7-40); Calcium 8.4 mg/dL (8.7-10.4); Chloride 108 mmol/L (98-107); Glucose 113 mg/dL (74-106); Potassium 3.5 mmol/L (3.5-5.1); Sodium 146 mmol/L (136-145)
[2025-04-19 05:46] LABS: Bilirubin, Total 1.2 mg/dL (0.2-1.0)
--- NOTE | 2025-04-19 09:12 | DVHPN2 ---
Progress Note Date Seen: Apr 19, 2025 Medical Necessity Reason Pt with a Central, PICC or Fol: No Objective vital signs Vital Sign Date Time Temp Pulse Resp B/P (MAP) Pulse Ox O2 Delivery O2 Flow Rate FiO2 04/19/25 08:28 77 22 142/67 04/19/25 07:03 94 Room Air* 0 21 04/18/25 17:42 98.2 98.2 Total Intake and Output 04/18/25 04/18/25 04/19/25 15:00 23:00 07:00 Intake Total 550 ml Output Total 1450 ml 400 ml Balance -1450 ml 150 ml medications Current Medications Medications Dose Ordered Sig/Gregory Route Start Time Stop Time Status Last Admin Dose Admin Pantoprazole Sodium 40 mg DAILY IV 04/16/25 10:00 04/19/25 08:23 40 MG Ondansetron HCl 4 mg Q4HP PRN IV 04/15/25 19:30 Hydromorphone HCl 0.25 mg Q4HPRN PRN IV 04/15/25 19:30 04/19/25 08:28 0.25 MG Piperacillin Sod/ Tazobactam Sod 100 ml @ 25 mls/hr Q8HR IV 04/16/25 22:00 04/19/25 05:59 25 MLS/HR Hydralazine HCl 10 mg Q6HP PRN IV 04/17/25 09:30 Albuterol 2.5 mg Q4HPRN PRN NEB 04/17/25 20:30 04/17/25 21:53 2.5 MG Ipratropium [place] 0.5 mg Q4HPRN PRN NEB 04/17/25 20:30 04/17/25 21:53 0.5 MG Potassium Chloride/Dextrose/ Sod Cl 1,000 ml @ 60 mls/hr [id number] IV 04/18/25 13:45 04/18/25 13:45 60 MLS/HR Amino Acids 0 ml @ 0 mls/hr PER PHARMACY IV 04/18/25 17:45 Amino Acids/ Electrolytes/ Dextrose 1,000 ml @ 41 mls/hr DAILY@2200 IV 04/18/25 22:00 04/19/25 21:59 04/18/25 21:11 41 MLS/HR Diagnostic Test (Pha) 1 strip Q6HR 04/19/25 00:00 04/19/25 06:18 1 STRIP Insulin Human Regular FOLLOW SLIDING SCALE Q6HR SC 04/19/25 00:00 Dextrose 50 ml UD IV 04/18/25 22:00 laboratory and microbiology Laboratory Tests 04/19/25 04:26 04/18/25 04:49 Test 04/19/25 04:26 Range/Units Serum Glucose 113 H 74-106 mg/dL Problem List/Assessment/Plan Problem List/Assessment/Plan AFEBRILE VSS ABD SOFT NON TENDER LFT ELEVATED MRCP CBD STONE NG REMOVED BY PT CONSIDER TRANSFER TO HIGHER LEVEL OF CARE FOR ERCP AND POSSIBLE SURGERY INDICATED SITUATION EXPLAINED TO FAMILY NURSE AT BEDSIDE NO BM REPORTED RECTAL EXAM DONE AT BEDSIDE YESTERDAY SHE HAS FECAL IMPACTION RECTAL FECAL DISIMPACTION DONE AT BEDSIDE FAMILY AT BEDSIDE START ON TPN ALLOW ICE CHIPS Plan discussed with: Other GLOIRA MCNEAL MD Apr 19, 2025 09:12
--- NOTE | 2025-04-19 13:55 | DVHSR ---
APPROVED REPORT EXAM: Two-dimensional and M-mode echocardiogram with Doppler and color Doppler. Blood Pressure: 161/86 mmHg INDICATION Pre-Op RISK FACTORS Height: 5'4", Weight: 101 DIMENSIONS LVDd3.2 (3.8-5.7cm)LA (2D)5.7 (1.9-4.0cm)Aortic Root3.5 (2.0-3.7cm) LVDs2.2 (2.5-4.0cm)LA (MM) (1.9-4.0cm)Aortic Cusp Exc1.8 (1.5-2.0cm) EF (%) 62.0 (55-70%)Rt. Atrium3.6 (1.9-4.0cm)Asc. Aorta3.2 cm IVSd1.6 (0.7-1.1cm)RV (D) (1.8-2.4cm) PWd1.6 (0.7-1.1cm) Mitral Valve MitralMitral Stenosis E wave0.62m/sMV Mean GR.mmHg A wave1.06m/sMV Peak GR.mmHg E/A ratio0.62D MVAcm2 DECEL [id number] 1/2 Timems Aortic Valve Aortic ValveAortic Stenosis V11.18m/Nieves Mean GR.4mmHg V21.40m/Nieves Peak GR.8mmHg LVOT Diameter2.1 (1.8-2.4cm)Doppler AVA2.92cm2 AI P 1/2 Qzzh995.33ms Pulmonic Valve V20.86m/s Tricuspid Valve TR Velocity2.72m/s [id number] Other Information Quality : Technically LimitedRhythm : Technically limited study due to body habitus. Conclusion Technically good study. Sinus rhythm. Aortic root enlargement. Left atrial enlargement. Notable concentric LVH noted. RV size is normal. Mild aortic sclerosis without stenosis. Moderate mitral annular calcification. Immobility of the po sterior mitral leaflet with dense calcification at the base and mid portion of the mitral valve. The tricuspid and pulmonic or structurally normal. Left ventricular function is preserved at 60% with normal RV function. Moderate aortic insufficiency. Mild MR. Moderate TR. Mild pulmonic insufficiency. No pericardial effusion masses or vegetations.
--- NOTE | 2025-04-19 15:25 | DVHPN2 ---
Subjective looks rested/no pain/waiting on transfer Reviewed: Care Plan, H&P, Labs, Medications Changes from previous H/P or p: No Changes General: Per HPI Objective Vitals Vital Signs Date Time Temp Pulse Resp B/P (MAP) Pulse Ox O2 Delivery O2 Flow Rate FiO2 04/19/25 13:00 97.7 71 20 136/68 (90) 95 97.7 04/19/25 10:00 Nasal Cannula* 3 32 Intake/Output Intake and Output 04/19/25 07:00 Intake Total 550 ml Output Total 1850 ml Balance -1300 ml Intake Oral 50 ml IV Total 500 ml Output Urine Total 950 ml Gastric Drainage Total 900 ml General Appearance: Alert, Oriented X3, Cooperative, No acute distress HEENT: PERRLA, Other (no icterus) Lungs: Clear to auscultation Cardiovascular: Regular rate, Normal S1, Normal S2 Abdomen: Normal bowel sounds, Soft, No tenderness, No hepatospenomegaly Musculoskeletal: Normal sensory function, Normal motor function Extremities: No edema Neuro: Other (moves all four extremities/whispers/confused at baseline from dementi/answers simple questions) Psych/Mental Status: Mood NL Medications Current Medications Medications Dose Ordered Sig/Gregory Route Start Time Stop Time Status Last Admin Dose Admin Pantoprazole Sodium 40 mg DAILY IV 04/16/25 10:00 04/19/25 08:23 40 MG Ondansetron HCl 4 mg Q4HP PRN IV 04/15/25 19:30 Hydromorphone HCl 0.25 mg Q4HPRN PRN IV 04/15/25 19:30 04/19/25 08:28 0.25 MG Piperacillin Sod/ Tazobactam Sod 100 ml @ 25 mls/hr Q8HR IV 04/16/25 22:00 04/19/25 14:19 25 MLS/HR Hydralazine HCl 10 mg Q6HP PRN IV 04/17/25 09:30 Albuterol 2.5 mg Q4HPRN PRN NEB 04/17/25 20:30 04/17/25 21:53 2.5 MG Ipratropium [place] 0.5 mg Q4HPRN PRN NEB 04/17/25 20:30 04/17/25 21:53 0.5 MG Potassium Chloride/Dextrose/ Sod Cl 1,000 ml @ 60 mls/hr [id number] IV 04/18/25 13:45 04/18/25 13:45 60 MLS/HR Amino Acids 0 ml @ 0 mls/hr PER PHARMACY IV 04/18/25 17:45 Amino Acids/ Electrolytes/ Dextrose 1,000 ml @ 41 mls/hr DAILY@2200 IV 04/18/25 22:00 04/19/25 21:59 04/18/25 21:11 41 MLS/HR Diagnostic Test (Pha) 1 strip Q6HR 04/19/25 00:00 04/19/25 12:00 1 STRIP Insulin Human Regular FOLLOW SLIDING SCALE Q6HR SC 04/19/25 00:00 Dextrose 50 ml UD IV 04/18/25 22:00 Laboratory Results Laboratory Tests 04/18/25 04:49 04/19/25 04:26 Chemistry Test 04/19/25 04:26 Albumin 3.7 g/dL (3.2-4.8) Calcium Level 8.4 mg/dL (8.7-10.4) L Magnesium Level 2.2 mg/dL (1.6-2.6) Phosphorus Level 2.2 mg/dL (2.4-5.1) L Total Protein 6.4 g/dL (5.7-8.2) Lipid panel Test 04/19/25 04:26 Triglycerides Level 101 mg/dL (< 150) LFT Test 04/19/25 04:26 Alanine Aminotransferase (ALT) 74 U/L (7-40) H Alkaline Phosphatase 71 U/L (46-116) Aspartate Amino Transferase (AST) 36 U/L (13-40) Total Bilirubin 1.2 mg/dL (0.2-1.0) H Urinalysis Test 04/15/25 15:45 Urine Color Light-orange (Yellow) Urine Clarity Ex.turbid (Clear) Urine pH 5.5 (5.0-9.0) Urine Specific [place] 1.028 (1.001-1.035) Urine Protein 1+ (Negative) H Urine Ketones Negative (Negative) Urine Blood 1+ /uL (Negative) H Urine Nitrite Negative (Negative) Urine Bilirubin Negative (Negative) Urine Urobilinogen 3 mg/dL (Negative) H Urine Leukocyte Esterase Negative /uL (Negative) Urine RBC 16 /hpf (0 - 4) Urine Microscopic WBC 1 /HPF (0-5) Urine Squamous Epithelial Cells Mod /hpf (<5) Urine Amorphous Crystals Few /hpf (None Seen) Urine Bacteria Few /hpf (None Seen) H Urine Hyaline Casts Few /lpf (0 - 2) Urine Mucus Few (None Seen) Urine Glucose Normal mg/dL (Normal) Assessment/Plan Assessment/Plan partial sbo/obstipation resolved clarified wil pharmacist pt on ppn dilated cbd/? cbd stone vs stricture- awaiting transfer to [facility] for ercp/lft resolving dementia macrocytosis- evaluate Plan discussed with: Other (and pharmacist clarified meds/nutrition) Date of Service: Apr 19, 2025 Billing Provider: VIDHI KAISER MD Common Visit Codes: [id number] INP/OBS CARE(MOD) VIDHI KAISER MD Apr 19, 2025 15:24
[2025-04-19] MEDS ORDERED: DEXTROSE (50%) 50ML SYRG IV SCH (18:15)
[2025-04-19] MEDS: POTASSIUM PHOSPHATE 22 MEQ in SODIUM CHL 0.9% 100 ML IV ONE (23:48)
[2025-04-19] MEDS: ACCU-CHEK COMFORT CURVE STRIP VI SCH (23:52)
[2025-04-19] MEDS: InsuLIN REG 1unit/0.01ml Soln (100units/ml) SC SCH (23:52)
[2025-04-20] VITALS (20 sets, daily range): BP systolic 120–197; BP diastolic 33–80; PULSE 62–98; RESP 15–19; TEMP 94.9–98.3; O2SAT 95–100
[2025-04-20 09:54] LABS: Albumin 3.8 g/dL (3.2-4.8); Alkaline Phosphatase 70 U/L (46-116); Anion Gap 11 (5-15); Bilirubin, Total 1.1 mg/dL (0.2-1.0); Carbon Dioxide 23 mmol/L (20-31); Glucose 105 mg/dL (74-106); Magnesium 2.1 mg/dL (1.6-2.6); Sodium 142 mmol/L (136-145); Total Protein 6.7 g/dL (5.7-8.2)
[2025-04-20 09:56] LABS: BUN/Creatinine Ratio 11.7 (10.0-20.0)
[2025-04-20 10:02] LABS: Alanine Aminotransferase 76 U/L (7-40); Blood Urea Nitrogen 9 mg/dL (9-23); Calcium 8.3 mg/dL (8.7-10.4); Chloride 108 mmol/L (98-107); Potassium 4.3 mmol/L (3.5-5.1)
--- NOTE | 2025-04-20 10:49 | DVHPN2 ---
Progress Note Date Seen: Apr 20, 2025 Medical Necessity Reason Pt with a Central, PICC or Fol: No Objective vital signs Vital Sign Date Time Temp Pulse Resp B/P (MAP) Pulse Ox O2 Delivery O2 Flow Rate FiO2 04/20/25 08:39 97.6 64 16 145/64 (91) 95 97.6 04/19/25 21:40 Nasal Cannula* 2 28 Total Intake and Output 04/19/25 04/19/25 04/20/25 15:00 23:00 07:00 Intake Total 900 ml 0 ml Output Total 300 ml 175 ml Balance 600 ml -175 ml medications Current Medications Medications Dose Ordered Sig/Gregory Route Start Time Stop Time Status Last Admin Dose Admin Pantoprazole Sodium 40 mg DAILY IV 04/16/25 10:00 04/20/25 08:31 40 MG Piperacillin Sod/ Tazobactam Sod 100 ml @ 25 mls/hr Q8HR IV 04/16/25 22:00 04/20/25 06:40 25 MLS/HR Hydralazine HCl 10 mg Q6HP PRN IV 04/17/25 09:30 Amino Acids 0 ml @ 0 mls/hr PER PHARMACY IV 04/18/25 17:45 Amino Acids/ Electrolytes/ Dextrose 1,000 ml @ 41 mls/hr DAILY@2200 IV 04/18/25 22:00 04/20/25 21:59 04/19/25 23:12 41 MLS/HR Diagnostic Test (Pha) 1 strip Q6HR 04/20/25 00:00 04/20/25 06:11 1 STRIP Insulin Human Regular FOLLOW SLIDING SCALE Q6HR SC 04/20/25 00:00 04/20/25 06:18 2 UNITS Dextrose 50 ml UD IV 04/19/25 18:15 laboratory and microbiology Laboratory Tests 04/20/25 09:01 Test 04/20/25 09:01 Range/Units Serum Glucose 105 74-106 mg/dL Problem List/Assessment/Plan Problem List/Assessment/Plan AFEBRILE VSS ABD SOFT DISTENDED, MILD TENDER LFT ELEVATED BUT TRENDING DOWN MRCP CBD STONE NG REMOVED BY PT CONSIDER TRANSFER TO HIGHER LEVEL OF CARE FOR ERCP AND POSSIBLE SURGERY INDICATED NURSE AT BEDSIDE NO BM REPORTED RECTAL EXAM DONE AT BEDSIDE AGAIN TODAY SHE HAS FECAL IMPACTION RECTAL FECAL DISIMPACTION DONE AT BEDSIDE AGAIN TODAY START ON TPN KUB GASTROGRAFIN STUDY HEMALATHA TO DETERMINE THE NEED FOR SURGERY CLINICAL EVAL NOT COMPLETELY RELIABLE Plan discussed with: Patient Dietary Evaluation Review Recommendations by RD: PPN/TPN Comments: 1) Increase TPN to meet at least 75% estimated daily needs 2) Advance to cardiac diet when medically feasible 3) Follow-up with gastroenterology and neurology 4) Continue to monitor I&O, labs, and skin integrity Expected Outcomes/Goals: 1) nutrition support to meet at least 75% estimated daily needs 2) labs to improve 3) diet to advance 4) gradual wt gain 5) f/u in 2-3 days GLORIA MCNEAL MD Apr 20, 2025 10:49
[2025-04-20 11:20] LABS: Mean Corpuscular Hemoglobin 33.6 pg (28.0-32.0); Nucleated Red Blood Cells % 0.0 %
[2025-04-20 11:22] LABS: Hematocrit 41.1 % (36.0-46.0); Hemoglobin 13.5 g/dL (12.2-16.2); Mean Corpuscular Volume 102.2 fL (80.0-100.0)
--- NOTE | 2025-04-20 12:57 | DVH ---
Exam: XY KUB ABDOMEN SINGLE VIEW Indication: DISTENDED ABDOMEN Comparison: XY KUB ABDOMEN SINGLE VIEW on DOS: 04/18/25, XY KUB ABDOMEN SINGLE VIEW on DOS: 04/17/25, XY KUB ABDOMEN SINGLE VIEW on DOS: 04/16/25, CT CT AB PEL WO CON-NO ORAL OR IV on DOS: 04/15/25 Technique: 1 radiographic views of the abdomen. Findings: Multiple abnormally dilated loops of small bowel are seen throughout the abdomen suggestive of small- bowel obstruction. There is no definite evidence for pneumoperitoneum. Indeterminate age thoracic and lumbar vertebral compression deformities are seen. Impression: 1. Multiple abnormally dilated loops of small bowel are seen throughout the abdomen suggestive of sma ll-bowel obstruction.
[2025-04-20 15:51] LABS: INR 1.08 (0.9-1.15); Partial Thromboplastin Time 24.6 SEC (24.5-34.5); Prothrombin Time 11.4 sec (9.3-11.8)
--- NOTE | 2025-04-20 16:32 | DVH ---
CHEST RADIOGRAPH Indication: NGT PLACEMENT Technique: Single frontal view of the chest was obtained Comparison: XY CHEST XRAY 1 VIEW on DOS: 04/17/25, XY CHEST XRAY 1 VIEW on DOS: 04/17/25, XY CHEST XR AY 1 VIEW on DOS: 04/17/25 FINDINGS: Lines and Tubes: None Lungs: Consolidation left base left pleural effusion. Persistent atelectasis in the right base noted with increasing airspace disease in the right upper lobe Pleura: No effusion. No pneumothorax. Cardiomediastinal contours: Stable Bones: No acute osseous abnormality. IMPRESSION: 1. Enteric tube below the left diaphragm in the stomach 2. Unimproved consolidation left lower lobe and left pleural effusion. Radiographically appears sligh tly larger however this may be positional 3. Unimproved atelectasis in the right base with worsening right upper lobe infiltrate.
[2025-04-20] MEDS ORDERED: MIDAZOLAM HCL 2MG/2ML 2ml VIAL (1mg/ml) ONE (17:23)
[2025-04-20] MEDS ORDERED: PROPOFOL 10 MG/ML 20 ML IV ONE (17:24)
--- NOTE | 2025-04-20 17:34 | DVHPN2 ---
Subjective looks rested/no pain/waiting on transfer Reviewed: Care Plan, H&P, Labs, Medications Changes from previous H/P or p: Changes (abdomen distended) General: Per HPI Objective Vitals Vital Signs Date Time Temp Pulse Resp B/P (MAP) Pulse Ox O2 Delivery O2 Flow Rate FiO2 04/20/25 13:00 97.7 98 16 123/69 (87) 95 97.7 04/20/25 10:00 Nasal Cannula* 2 28 Intake/Output Intake and Output 04/20/25 07:00 Intake Total 900 ml Output Total 475 ml Balance 425 ml Intake Oral 900 ml Output Urine Total 475 ml General Appearance: Alert, Oriented X3, Cooperative, No acute distress HEENT: PERRLA, Other (no icterus) Lungs: Clear to auscultation Cardiovascular: Regular rate, Normal S1, Normal S2 Abdomen: Normal bowel sounds, No tenderness, No hepatospenomegaly, Other (abdomen distended today/bs heard hypo) Musculoskeletal: Normal sensory function, Normal motor function Extremities: No edema Neuro: Other (moves all four extremities/whispers/confused at baseline from dementi/answers simple questions) Psych/Mental Status: Mood NL Medications Current Medications Medications Dose Ordered Sig/Gregory Route Start Time Stop Time Status Last Admin Dose Admin Pantoprazole Sodium 40 mg DAILY IV 04/16/25 10:00 04/20/25 08:31 40 MG Piperacillin Sod/ Tazobactam Sod 100 ml @ 25 mls/hr Q8HR IV 04/16/25 22:00 04/20/25 06:40 25 MLS/HR Hydralazine HCl 10 mg Q6HP PRN IV 04/17/25 09:30 Amino Acids 0 ml @ 0 mls/hr PER PHARMACY IV 04/18/25 17:45 Amino Acids/ Electrolytes/ Dextrose 1,000 ml @ 41 mls/hr DAILY@2200 IV 04/18/25 22:00 04/21/25 21:59 04/19/25 23:12 41 MLS/HR Diagnostic Test (Pha) 1 strip Q6HR 04/20/25 00:00 04/20/25 12:00 1 STRIP Insulin Human Regular FOLLOW SLIDING SCALE Q6HR SC 04/20/25 00:00 04/20/25 06:18 2 UNITS Dextrose 50 ml UD IV 04/19/25 18:15 Laboratory Results Laboratory Tests 04/20/25 09:01 04/20/25 10:52 Chemistry Test 04/20/25 09:01 Albumin 3.8 g/dL (3.2-4.8) Calcium Level 8.3 mg/dL (8.7-10.4) L Magnesium Level 2.1 mg/dL (1.6-2.6) Phosphorus Level 2.3 mg/dL (2.4-5.1) L Total Protein 6.7 g/dL (5.7-8.2) Coagulation Test 04/20/25 15:24 Prothrombin Time 11.4 sec (9.3-11.8) Prothrombin Time INR 1.08 (0.9-1.15) Activated Partial Thromboplast Time 24.6 SEC (24.5-34.5) LFT Test 04/20/25 09:01 Alanine Aminotransferase (ALT) 76 U/L (7-40) H Alkaline Phosphatase 70 U/L (46-116) Aspartate Amino Transferase (AST) 59 U/L (13-40) H Total Bilirubin 1.1 mg/dL (0.2-1.0) H Urinalysis Test 04/15/25 15:45 Urine Color Light-orange (Yellow) Urine Clarity Ex.turbid (Clear) Urine pH 5.5 (5.0-9.0) Urine Specific [place] 1.028 (1.001-1.035) Urine Protein 1+ (Negative) H Urine Ketones Negative (Negative) Urine Blood 1+ /uL (Negative) H Urine Nitrite Negative (Negative) Urine Bilirubin Negative (Negative) Urine Urobilinogen 3 mg/dL (Negative) H Urine Leukocyte Esterase Negative /uL (Negative) Urine RBC 16 /hpf (0 - 4) Urine Microscopic WBC 1 /HPF (0-5) Urine Squamous Epithelial Cells Mod /hpf (<5) Urine Amorphous Crystals Few /hpf (None Seen) Urine Bacteria Few /hpf (None Seen) H Urine Hyaline Casts Few /lpf (0 - 2) Urine Mucus Few (None Seen) Urine Glucose Normal mg/dL (Normal) Assessment/Plan Assessment/Plan partial sbo/obstipation resolved//but ? reccurs- abd is distended- surgery following- npo/ng tube to lis/meds as written/ppi clarified wilh pharmacist pt on ppn dilated cbd/? cbd stone vs stricture- awaiting transfer to [facility] for ercp/lft resolving dementia macrocytosis- evaluate Plan discussed with: Other (nursing at bedside- no family members at bedside- no calls requesting update) Date of Service: Apr 20, 2025 Billing Provider: VIDHI KAISER MD Common Visit Codes: [id number] INP/OBS CARE(MOD) VIDHI KAISER MD Apr 20, 2025 17:33
[2025-04-20] MEDS ORDERED: KETAMINE 50mg/ML 1ml syringe ONE ×2 (17:37→18:22)
[2025-04-20] MEDS: ceFAZolin 2 GM/D5W50ml 50 ML IV ONE ×2 (18:10→18:16)
[2025-04-20] MEDS ORDERED: ONDANSETRON HCL 4 MG/2 ML VIAL ONE (18:22)
[2025-04-20] MEDS ORDERED: ETOMIDATE (2MG/ML) 20ML VIAL IV ONE (18:22)
[2025-04-20] MEDS ORDERED: GLYCOPYRROLATE 0.2 MG/ML 1ML VIAL ONE (18:22)
[2025-04-20] MEDS ORDERED: LIDOCAINE 2% (LOCAL ANESTH.) PF 5ml SDV ONE (18:22)
[2025-04-20] MEDS ORDERED: fentaNYL CITRATE 100 MCG/2 ML VL ONE (18:22)
[2025-04-20] MEDS ORDERED: ROCURONIUM 10MG/ML 10ML VIAL IV ONE (18:22)
[2025-04-20] MEDS ORDERED: HYDROmorphone HCL 2 MG/ML VL/or syr ONE (18:25)
[2025-04-20] MEDS ORDERED: ceFAZolin 1GM VL ONE (19:35)
[2025-04-20] MEDS: MIDAZOLAM DRIP 50 mg/50mL 50 ML IV SCH (19:45)
[2025-04-20] MEDS: fentaNYL Drip 2500mCg/250mlNS 250 ML IV SCH (19:45)
[2025-04-20] MEDS: PROPOFOL 100 ML IV SCH (21:30)
[2025-04-20] MEDS: PROPOFOL 100 ML IV ONE (21:38)
[2025-04-20] MEDS: LACTATED RINGER'S 1,000 ML IV ONE (22:24)
--- NOTE | 2025-04-20 22:29 | DVHOP ---
DATE OF SURGERY: 04/20/2025 PREOPERATIVE DIAGNOSIS: Fecal impaction with recurrent small bowel obstruction. POSTOPERATIVE DIAGNOSIS: Fecal impaction with recurrent small bowel obstruction. SURGEON: Tevin Cui MD BIOLOGICAL INSPECTOR: None. ANESTHESIA: General. PROCEDURE: Exploratory laparotomy with lysis of adhesions and small bowel resection x 2, one close to the mid ileum and the second one close to the ileocecal junction. DESCRIPTION OF PROCEDURE: The patient was prepped and draped in the usual sterile fashion in a supine position and a vertical midline incision was applied. It was taken down to the fascia. It was going supraumbilically and infraumbilically. Once the fascia was divided, the abdomen was entered. The small bowel was found to be distended and the ileocecal junction was identified. The DJ flexure junction was identified and the valve was released outside of the abdomen and a location of the obstruction was noted, which was causing recurrent obstruction in that location. It was close to the sigmoid colon flexure. There was a band that was allowing the small bowel to get trapped in 2 locations, thereby causing intermittent obstruction, so because of the mesenteric tissue looking ischemic, it was decided to resect that portion of the intestine. About 4-6 inches of the small bowel was resected using the Endo YANELIS stapling device and the mesenteric tissue was also brought together using the Endo YANELIS stapling device. The [id number] stapled anastomosis was carried out between the proximal and the distal loops and the obstructed segment of the bowel was transected using the Endo YANELIS stapling device and the final opening was also brought together in this fashion. With this being done, reinforcing sutures were applied at various locations in the anastomosis and the anastomosis was secured with no leakage noted and the bowel contents were released into the distal bowel without any problems. With this being done, the mesenteric tissue also being secured with the stapling device. Attention was directed towards the location of the second area where it was close to the ileocecal junction. There was a suitable length that was close to the ileocecal junction that was amenable for stapled anastomosis and a small segment of the bowel was resected because it was possible that even though it was not ischemic, but there was a potential of ischemia because some erythema was noted in that location, so the [id number] stapled anastomosis was carried out between proximal and healthy distal segments and then the remaining opening was brought together using the stapling device as well allowing the so-called ischemic area of the stressed-out serosa that could have caused the ischemia to progress to be removed as well. The anastomosis here also was reinforced with sutures at various locations and contents of the bowel from the proximal segment of the distal cecum were seen noticed going through without any leakage. With this being done, the entire small bowel was replaced into the abdomen in its anatomic location and the sigmoid colon was also noted to have diverticulosis, but there was no abscess. No perforation noted in the sigmoid colon and there was firm and hard stool noted in the ascending colon as well as the transverse colon, so with this being done, no further intervention was necessary. Irrigation was performed. Hemostasis was secured. The sponge count and needle count was reported correct and the fascia was brought together using PDS suture in a continuous running fashion. The wound was brought together using Vicryl suture for the subcutaneous tissues and 2-0 Monocryl suture for skin closure in a subcuticular fashion. Surgical glue was applied. Steri-Strips were applied. The patient tolerated the procedure well and was taken back to the ICU in a relatively critical condition based upon her pulmonary and heart issues and the situation was explained to the family as well with details of the findings and the procedure being done. MD NOE Caceres/GENIE TID: [id number] RECEIPT: [id number]
[2025-04-20 23:13] LABS: Base Excess 0.2 mmol/L (-2.0-3.0)
[2025-04-21] VITALS (113 sets, daily range): BP systolic 96–148; BP diastolic 46–74; PULSE 81–107; RESP 15–26; TEMP 72–99.5; O2SAT 98–100
[2025-04-21 04:24] LABS: Hematocrit 38.6 % (36.0-46.0); Hemoglobin 12.8 g/dL (12.2-16.2); Mean Corpuscular Hemoglobin 33.3 pg (28.0-32.0); Mean Corpuscular Volume 100.5 fL (80.0-100.0); Nucleated Red Blood Cells % 0.0 %
--- NOTE | 2025-04-21 04:31 | DVH ---
CHEST RADIOGRAPH Indication: INTUBATED/SEDATED Technique: Single frontal view of the chest was obtained COMPARISON: XY CHEST XRAY 1 VIEW on DOS: 04/20/25, XY CHEST XRAY 1 VIEW on DOS: 04/17/25, XY CHEST XR AY 1 VIEW on DOS: 04/17/25, XY CHEST XRAY 1 VIEW on DOS: 04/17/25, XY CHEST XRAY 1 VIEW on DOS: 04/15 FINDINGS: Lines and Tubes: Endotracheal tube tip projects approximately 6.8 cm above the level of the choco. E nteric catheter courses below the level of the diaphragm and terminates within the left upper quadran t, presumably within the gastric lumen. Lungs: Stable to slightly decreased left pleural effusion. The remaining lung zones are clear. No pneumothorax. Cardiomediastinal contours: Unremarkable Bones: Unremarkable IMPRESSION: 1. Stable to slightly decreased left pleural effusion. 2. Lines and tubes as above.
[2025-04-21 04:36] LABS: INR 1.08 (0.9-1.15); Partial Thromboplastin Time 25.7 SEC (24.5-34.5); Prothrombin Time 11.4 sec (9.3-11.8)
[2025-04-21 04:46] LABS: Alkaline Phosphatase 54 U/L (46-116); Anion Gap 11 (5-15); BUN/Creatinine Ratio 26.3 (10.0-20.0); Blood Urea Nitrogen 15 mg/dL (9-23); Carbon Dioxide 23 mmol/L (20-31); Chloride 106 mmol/L (98-107); Sodium 140 mmol/L (136-145)
[2025-04-21 05:08] LABS: Alanine Aminotransferase 46 U/L (7-40); Albumin 2.9 g/dL (3.2-4.8); Bilirubin, Total 1.3 mg/dL (0.2-1.0); Calcium 8.0 mg/dL (8.7-10.4); Glucose 179 mg/dL (74-106); Magnesium 1.5 mg/dL (1.6-2.6); Potassium 3.3 mmol/L (3.5-5.1); Total Protein 5.0 g/dL (5.7-8.2)
[2025-04-21] MEDS: POTASSIUM CHL 20MEQ/100ML 100 ML IV ONE (05:44)
[2025-04-21] MEDS: MAGNESIUM SULFATE 1GM/100ML 100 ML IV SCH (05:45)
[2025-04-21] MEDS ORDERED: POTASSIUM CHL 20MEQ/100ML 100 ML IV SCH (08:15)
--- NOTE | 2025-04-21 08:25 | DVHPN2 ---
Subjective Patient chemically sedated Reviewed: Care Plan, H&P, Labs, Medications Changes from previous H/P or p: No Changes General: Per HPI Objective Vitals Vital Signs Date Time Temp Pulse Resp B/P (MAP) Pulse Ox O2 Delivery O2 Flow Rate FiO2 04/21/25 07:15 99.0 84 16 117/59 (78) 100 210.2 04/21/25 06:06 30 04/21/25 06:00 Mechanical Ventilator+ 04/20/25 10:00 2 Intake/Output Intake and Output 04/21/25 07:00 Intake Total 1353.612 ml Output Total 510 ml Balance 843.612 ml Intake Oral 20 ml IV Total 1333.612 ml Output Urine Total 500 ml Gastric Drainage Total 10 ml General Appearance: Other (Intubated and sedated) HEENT: PERRLA, Other Lungs: Clear to auscultation, Normal air movement, Other (Mechanical ventilation) Cardiovascular: Regular rate, Normal S1, Normal S2 Abdomen: Normal bowel sounds, No tenderness, No hepatospenomegaly, Other Genitourinary: No Apparent Abnormalities (Grewal catheter) Musculoskeletal: Normal sensory function, Normal motor function Extremities: No edema Neuro: Other Skin: Dry, Intact, Wounds, Other (Surgical wound D&I) Psych/Mental Status: Mood NL Medications Current Medications Medications Dose Ordered Sig/Gregory Route Start Time Stop Time Status Last Admin Dose Admin Pantoprazole Sodium 40 mg DAILY IV 04/16/25 10:00 04/20/25 08:31 40 MG Piperacillin Sod/ Tazobactam Sod 100 ml @ 25 mls/hr Q8HR IV 04/16/25 22:00 04/21/25 05:45 25 MLS/HR Hydralazine HCl 10 mg Q6HP PRN IV 04/17/25 09:30 Amino Acids 0 ml @ 0 mls/hr PER PHARMACY IV 04/18/25 17:45 Amino Acids/ Electrolytes/ Dextrose 1,000 ml @ 41 mls/hr DAILY@2200 IV 04/18/25 22:00 04/21/25 21:59 04/21/25 00:10 41 MLS/HR Midazolam HCl 50 ml @ 1 mls/hr Q24H IV 04/20/25 19:45 Fentanyl Citrate 250 ml @ 2.5 mls/hr Q24H IV 04/20/25 19:45 04/20/25 19:45 2.5 MLS/HR Propofol 100 ml @ 1.392 mls/ hr Q24H IV 04/20/25 22:15 04/21/25 06:15 6.96 MLS/HR Potassium Chloride 100 ml @ 50 mls/hr Q2H IV 04/21/25 08:15 04/21/25 12:14 UNV Laboratory Results Laboratory Tests 04/21/25 03:50 Chemistry Test 04/20/25 09:01 04/21/25 03:50 Albumin 3.8 g/dL (3.2-4.8) 2.9 g/dL (3.2-4.8) L Calcium Level 8.3 mg/dL (8.7-10.4) L 8.0 mg/dL (8.7-10.4) L Magnesium Level 2.1 mg/dL (1.6-2.6) 1.5 mg/dL (1.6-2.6) L Phosphorus Level 2.3 mg/dL (2.4-5.1) L 2.9 mg/dL (2.4-5.1) Total Protein 6.7 g/dL (5.7-8.2) 5.0 g/dL (5.7-8.2) L Coagulation Test 04/20/25 15:24 04/21/25 03:50 Prothrombin Time 11.4 sec (9.3-11.8) 11.4 sec (9.3-11.8) Prothrombin Time INR 1.08 (0.9-1.15) 1.08 (0.9-1.15) Activated Partial Thromboplast Time 24.6 SEC (24.5-34.5) 25.7 SEC (24.5-34.5) LFT Test 04/20/25 09:01 04/21/25 03:50 Alanine Aminotransferase (ALT) 76 U/L (7-40) H 46 U/L (7-40) H Alkaline Phosphatase 70 U/L (46-116) 54 U/L (46-116) Aspartate Amino Transferase (AST) 59 U/L (13-40) H 24 U/L (13-40) Total Bilirubin 1.1 mg/dL (0.2-1.0) H 1.3 mg/dL (0.2-1.0) H Urinalysis Test 04/15/25 15:45 Urine Color Light-orange (Yellow) Urine Clarity Ex.turbid (Clear) Urine pH 5.5 (5.0-9.0) Urine Specific [place] 1.028 (1.001-1.035) Urine Protein 1+ (Negative) H Urine Ketones Negative (Negative) Urine Blood 1+ /uL (Negative) H Urine Nitrite Negative (Negative) Urine Bilirubin Negative (Negative) Urine Urobilinogen 3 mg/dL (Negative) H Urine Leukocyte Esterase Negative /uL (Negative) Urine RBC 16 /hpf (0 - 4) Urine Microscopic WBC 1 /HPF (0-5) Urine Squamous Epithelial Cells Mod /hpf (<5) Urine Amorphous Crystals Few /hpf (None Seen) Urine Bacteria Few /hpf (None Seen) H Urine Hyaline Casts Few /lpf (0 - 2) Urine Mucus Few (None Seen) Urine Glucose Normal mg/dL (Normal) Blood Gas Results Test 04/20/25 23:04 Arterial Blood pH 7.441 (7.350-7.450) FiO2 % 100.0 Labs and/or images reviewed: Labs reviewed by me, Image(s) reviewed by me Assessment/Plan Assessment/Plan Impression: -choledocholithiasis -acute pancreatitis -small-bowel obstruction -dementia -cachexia -sepsis -COPD -GERD Plan: Events: S/P ex lap with with small bowel resection -surgical consultation : Recommendations appreciated -TPN, D5ns with kcl -echocardiogram -change antibiotic therapy to Zosyn -PICC line -pain management -LG to LIS -Repeat labs, CXR, ABG in am. Total time spent with patient discussing and formulating plan of care: 35 minutes. This medical document was created using an electronic medical record system with [employer] dictation system. Although this document has been carefully reviewed, there may still be some phonetic and typographical errors. These areas are purely typographical due to imperfections of the software programs, and do not reflect any compromise in the patient's medical care. Plan discussed with: Patient, Other My Orders Orders - JAYDEN HILL NP Procedure Category Date Status Time Mrsa Screen JANESSA 04/20/25 In Process 21:40 Potassium Chl PHA 04/21/25 Logged 20meq/100ml 08:15 Magnesium LAB 04/22/25 Verified 04:00 Phosphorus LAB 04/22/25 Verified 04:00 Chest Portable XY 04/22/25 Logged 04:00 Abg W/ Co-Ox RT 04/22/25 Logged 04:00 Comprehensive LAB 04/22/25 Verified Metabolic Panel 05:00 Comprehensive LAB 04/23/25 Verified Metabolic Panel 05:00 Comprehensive LAB 04/24/25 Verified Metabolic Panel 05:00 Complete Blood Count LAB 04/22/25 Verified 05:00 Complete Blood Count LAB 04/23/25 Verified 05:00 Complete Blood Count LAB 04/24/25 Verified 05:00 Date of Service: Apr 21, 2025 Billing Provider: JAYDEN HILL NP Common Visit Codes: [id number] CARE 30-74 MIN JAYDEN HILL NP Apr 21, 2025 08:25
[2025-04-21 08:34] LABS: Base Excess -3.9 mmol/L (-2.0-3.0)
[2025-04-21] MEDS: D5W/SOD CHL 0.45%/KCL 40MEQ 1,000 ML IV SCH (09:03)
--- NOTE | 2025-04-21 14:44 | DVHPN2 ---
Progress Note Date Seen: Apr 21, 2025 Medical Necessity Reason Pt with a Central, PICC or Fol: No Objective vital signs Vital Sign Date Time Temp Pulse Resp B/P (MAP) Pulse Ox O2 Delivery O2 Flow Rate FiO2 04/21/25 14:30 99.1 88 16 117/61 (79) 99 210.4 04/21/25 14:06 30 04/21/25 14:05 Mechanical Ventilator+ 04/20/25 10:00 2 Total Intake and Output 04/20/25 04/20/25 04/21/25 15:00 23:00 07:00 Intake Total 106.392 ml 1323.788 ml Output Total 250 ml 260 ml Balance -143.608 ml 1063.788 ml medications Current Medications Medications Dose Ordered Sig/Gregory Route Start Time Stop Time Status Last Admin Dose Admin Pantoprazole Sodium 40 mg DAILY IV 04/16/25 10:00 04/21/25 09:19 40 MG Piperacillin Sod/ Tazobactam Sod 100 ml @ 25 mls/hr Q8HR IV 04/16/25 22:00 04/21/25 13:44 25 MLS/HR Hydralazine HCl 10 mg Q6HP PRN IV 04/17/25 09:30 Amino Acids 0 ml @ 0 mls/hr PER PHARMACY IV 04/18/25 17:45 Amino Acids/ Electrolytes/ Dextrose 1,000 ml @ 41 mls/hr DAILY@2200 IV 04/18/25 22:00 04/22/25 21:59 04/21/25 00:10 41 MLS/HR Midazolam HCl 50 ml @ 1 mls/hr Q24H IV 04/20/25 19:45 Fentanyl Citrate 250 ml @ 2.5 mls/hr Q24H IV 04/20/25 19:45 04/20/25 19:45 2.5 MLS/HR Propofol 100 ml @ 1.392 mls/ hr Q24H IV 04/20/25 22:15 04/21/25 13:54 5.568 MLS/HR Potassium Chloride/Dextrose/ Sod Cl 1,000 ml @ 75 mls/hr [id number] IV 04/21/25 08:30 04/21/25 09:03 75 MLS/HR laboratory and microbiology Laboratory Tests 04/21/25 03:50 Test 04/21/25 03:50 Range/Units Serum Glucose 179 H 74-106 mg/dL Problem List/Assessment/Plan Problem List/Assessment/Plan AFEBRILE VSS ABD SOFT LESS DISTENDED NO BM S/P E LAP BOWEL RESECTION WOUND DRESSING DRY INTUBATED CONTINUE SUPPORTIVE CARE FAMILY AWARE OF PT CONDITION Plan discussed with: Other My Orders My Orders Orders - GLORIA MCNEAL MD Procedure Category Date Status Time Chest Xray 1 View XY 04/20/25 Resulted 15:49 Obtain Consent For: ORDERS 04/20/25 Transmitted 16:38 Obtain Consent For SAGE 04/20/25 In Process Anesthesia 16:38 Transfer Orders XFER 04/20/25 Transmitted 23:30 * Picc Line Consult CONS 04/20/25 Transmitted 23:28 Chest Xray 1 View XY 04/21/25 Resulted 04:00 Abg W/ Co-Ox RT 04/21/25 Logged 04:00 * Wound Consult CONS 04/21/25 Transmitted Dietary Evaluation Review Recommendations by RD: PPN/TPN Comments: 1) Increase TPN to meet at least 75% estimated daily needs 2) Advance to cardiac diet when medically feasible 3) Follow-up with gastroenterology and neurology 4) Continue to monitor I&O, labs, and skin integrity Expected Outcomes/Goals: 1) nutrition support to meet at least 75% estimated daily needs 2) labs to improve 3) diet to advance 4) gradual wt gain 5) f/u in 2-3 days GLORIA MCNEAL MD Apr 21, 2025 14:44
--- NOTE | 2025-04-21 14:57 | DVHPN2 ---
Progress Note Date Seen: Apr 21, 2025 Resident Creating Document: HOLLY DEAN RESIDENT Medical Necessity Reason Pt with a Central, PICC or Fol: No Subjective Review of Systems Patient is seen and examined at the bedside Status post exploratory laparotomy with small-bowel resection with anastomosis On mechanical ventilation Currently on TPN NG to LIS with the 50-60 mL dark green suction Objective vital signs Vital Sign Date Time Temp Pulse Resp B/P (MAP) Pulse Ox O2 Delivery O2 Flow Rate FiO2 04/21/25 14:06 85 16 126/66 (86) 99 30 04/21/25 14:05 Mechanical Ventilator+ 04/21/25 14:00 99.0 210.2 04/20/25 10:00 2 Total Intake and Output 04/20/25 04/20/25 04/21/25 15:00 23:00 07:00 Intake Total 106.392 ml 1323.788 ml Output Total 250 ml 260 ml Balance -143.608 ml 1063.788 ml medications Current Medications Medications Dose Ordered Sig/Gregory Route Start Time Stop Time Status Last Admin Dose Admin Pantoprazole Sodium 40 mg DAILY IV 04/16/25 10:00 04/21/25 09:19 40 MG Piperacillin Sod/ Tazobactam Sod 100 ml @ 25 mls/hr Q8HR IV 04/16/25 22:00 04/21/25 13:44 25 MLS/HR Hydralazine HCl 10 mg Q6HP PRN IV 04/17/25 09:30 Amino Acids 0 ml @ 0 mls/hr PER PHARMACY IV 04/18/25 17:45 Amino Acids/ Electrolytes/ Dextrose 1,000 ml @ 41 mls/hr DAILY@2200 IV 04/18/25 22:00 04/22/25 21:59 04/21/25 00:10 41 MLS/HR Midazolam HCl 50 ml @ 1 mls/hr Q24H IV 04/20/25 19:45 Fentanyl Citrate 250 ml @ 2.5 mls/hr Q24H IV 04/20/25 19:45 04/20/25 19:45 2.5 MLS/HR Propofol 100 ml @ 1.392 mls/ hr Q24H IV 04/20/25 22:15 04/21/25 13:54 5.568 MLS/HR Potassium Chloride/Dextrose/ Sod Cl 1,000 ml @ 75 mls/hr [id number] IV 04/21/25 08:30 04/21/25 09:03 75 MLS/HR Examination Gen - no pallor, mild scleral icterus Skin - Patients skin is warm and dry. HEENT - normocephalic, atraumatic, dry mucous membranes. Neck - supple, no lymphadenopathy Pulmonary - B/L equal breath sounds cardiovascular - regular S1,S2 heard GI - soft abdomen status post exploratory laparotomy midline incision covered in a sterile dressing. Bowel sounds hypoactive. 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 Cui Plan discussed with: Other (Chintan Jenkins) Dietary Evaluation Review Recommendations by RD: PPN/TPN Comments: 1) Increase TPN to meet at least 75% estimated daily needs 2) Advance to cardiac diet when medically feasible 3) Follow-up with gastroenterology and neurology 4) Continue to monitor I&O, labs, and skin integrity Expected Outcomes/Goals: 1) nutrition support to meet at least 75% estimated daily needs 2) labs to improve 3) diet to advance 4) gradual wt gain 5) f/u in 2-3 days HOLLY DEAN RESIDENT Apr 21, 2025 14:57
[2025-04-21] MEDS: LIDOCAINE 1% (LOCAL ANESTH.) PF 5ml SDV ID ONE (16:13)
[2025-04-21 16:55] LABS: Base Excess -2.6 mmol/L (-2.0-3.0)
[2025-04-21] MEDS: SODIUM CHLOR 0.9% PF (SALINE LOCK) 10ML VIAL/SYR IV SCH (22:14)
[2025-04-22] VITALS (111 sets, daily range): BP systolic 77–141; BP diastolic 30–69; PULSE 57–136; RESP 16–32; TEMP 58.8–99.7; O2SAT 71–100
[2025-04-22 04:23] LABS: Alanine Aminotransferase 29 U/L (7-40); Alkaline Phosphatase 48 U/L (46-116); Anion Gap 8 (5-15); BUN/Creatinine Ratio 28.1 (10.0-20.0); Blood Urea Nitrogen 16 mg/dL (9-23); Carbon Dioxide 24 mmol/L (20-31); Chloride 105 mmol/L (98-107); Magnesium 1.7 mg/dL (1.6-2.6); Potassium 3.9 mmol/L (3.5-5.1); Sodium 137 mmol/L (136-145)
[2025-04-22 04:24] LABS: Bilirubin, Total 0.7 mg/dL (0.2-1.0)
[2025-04-22 04:31] LABS: Albumin 2.7 g/dL (3.2-4.8); Calcium 7.7 mg/dL (8.7-10.4); Glucose 125 mg/dL (74-106); Total Protein 4.6 g/dL (5.7-8.2)
--- NOTE | 2025-04-22 04:32 | DVH ---
CHEST RADIOGRAPH Indication: ETT placement Technique: Single frontal view of the chest was obtained COMPARISON: XY CHEST XRAY 1 VIEW on DOS: 04/21/25, XY CHEST XRAY 1 VIEW on DOS: 04/20/25, XY CHEST XR AY 1 VIEW on DOS: 04/17/25, XY CHEST XRAY 1 VIEW on DOS: 04/17/25, XY CHEST XRAY 1 VIEW on DOS: 04/17 FINDINGS: Lines and Tubes: Endotracheal tube projects approximately 5.7 cm above the level of the choco. Ente vish catheter courses below the level of the diaphragm and terminates beyond the inferior margin of th e image. Right peripherally inserted central catheter tip projects over the distal superior vena cava . Lungs: Probable left pleural effusion. No evidence of focal consolidation. No pneumothorax. Cardiomediastinal contours: Cardiomegaly. Bones: Unremarkable IMPRESSION: 1. Probable left pleural effusion. 2. Cardiomegaly. 3. Lines and tubes as above.
[2025-04-22 04:35] LABS: Hematocrit 33.0 % (36.0-46.0); Hemoglobin 11.0 g/dL (12.2-16.2); Mean Corpuscular Hemoglobin 33.2 pg (28.0-32.0); Mean Corpuscular Volume 99.7 fL (80.0-100.0)
[2025-04-22 05:38] LABS: Anisocytosis Slight; Total Cells Counted 100.0 (100)
--- NOTE | 2025-04-22 06:07 | DVH ---
Exam: US US GUIDED VASCULAR ACCESS Clinical History: PICC Comparison: None Technique: Targeted sonographic evaluation of the soft tissues of the arm vein was obtained utilizing grayscale and color Doppler imaging. Findings/Impression: Sonographic assistance for PICC line placement. Please refer to procedural report for detailed findin gs.
--- NOTE | 2025-04-22 09:01 | DVHPN2 ---
Subjective Pt intubated, encephalopathic Reviewed: Care Plan, H&P, Labs, Medications Changes from previous H/P or p: Changes General: Per HPI Objective Vitals Vital Signs Date Time Temp Pulse Resp B/P (MAP) Pulse Ox O2 Delivery O2 Flow Rate FiO2 04/22/25 08:00 30 04/22/25 08:00 22 95 Mechanical Ventilator+ 04/22/25 08:00 77 04/22/25 06:45 99.1 127/56 (79) 210.4 04/20/25 10:00 2 Intake/Output Intake and Output 04/22/25 07:00 Intake Total 2930.860 ml Output Total 1275 ml Balance 1655.860 ml IV Total 2930.860 ml Output Urine Total 875 ml Gastric Drainage Total 400 ml General Appearance: Alert, Cooperative, mild distress HEENT: PERRLA, Other Lungs: Clear to auscultation, Normal air movement, Other (Mechanical ventilation) Cardiovascular: Regular rate, Normal S1, Normal S2 Abdomen: Normal bowel sounds, No tenderness, No hepatospenomegaly, Other (Absent bowel sounds) Genitourinary: No Apparent Abnormalities (Grewal catheter) Musculoskeletal: Normal sensory function, Normal motor function Extremities: No edema Neuro: Other Skin: Dry, Intact, Wounds, Other (Surgical wound D&I) Psych/Mental Status: Mood NL Medications Current Medications Medications Dose Ordered Sig/Gregory Route Start Time Stop Time Status Last Admin Dose Admin Pantoprazole Sodium 40 mg DAILY IV 04/16/25 10:00 04/21/25 09:19 40 MG Piperacillin Sod/ Tazobactam Sod 100 ml @ 25 mls/hr Q8HR IV 04/16/25 22:00 04/22/25 06:03 25 MLS/HR Hydralazine HCl 10 mg Q6HP PRN IV 04/17/25 09:30 Amino Acids 0 ml @ 0 mls/hr PER PHARMACY IV 04/18/25 17:45 Amino Acids/ Electrolytes/ Dextrose 1,000 ml @ 41 mls/hr DAILY@2200 IV 04/18/25 22:00 04/22/25 21:59 04/21/25 22:13 41 MLS/HR Midazolam HCl 50 ml @ 1 mls/hr Q24H IV 04/20/25 19:45 Fentanyl Citrate 250 ml @ 2.5 mls/hr Q24H IV 04/20/25 19:45 04/20/25 19:45 2.5 MLS/HR Propofol 100 ml @ 1.392 mls/ hr Q24H IV 04/20/25 22:15 04/22/25 00:02 6.96 MLS/HR Potassium Chloride/Dextrose/ Sod Cl 1,000 ml @ 75 mls/hr [id number] IV 04/21/25 08:30 04/22/25 08:09 75 MLS/HR Sodium Chloride 10 ml QSHIFT@ IV 04/21/25 22:00 04/21/25 22:14 10 ML Laboratory Results Laboratory Tests 04/22/25 03:15 Chemistry Test 04/22/25 03:15 Albumin 2.7 g/dL (3.2-4.8) L Calcium Level 7.7 mg/dL (8.7-10.4) L Magnesium Level 1.7 mg/dL (1.6-2.6) Phosphorus Level 1.9 mg/dL (2.4-5.1) L Total Protein 4.6 g/dL (5.7-8.2) L LFT Test 04/22/25 03:15 Alanine Aminotransferase (ALT) 29 U/L (7-40) Alkaline Phosphatase 48 U/L (46-116) Aspartate Amino Transferase (AST) 14 U/L (13-40) Total Bilirubin 0.7 mg/dL (0.2-1.0) Urinalysis Test 04/15/25 15:45 Urine Color Light-orange (Yellow) Urine Clarity Ex.turbid (Clear) Urine pH 5.5 (5.0-9.0) Urine Specific [place] 1.028 (1.001-1.035) Urine Protein 1+ (Negative) H Urine Ketones Negative (Negative) Urine Blood 1+ /uL (Negative) H Urine Nitrite Negative (Negative) Urine Bilirubin Negative (Negative) Urine Urobilinogen 3 mg/dL (Negative) H Urine Leukocyte Esterase Negative /uL (Negative) Urine RBC 16 /hpf (0 - 4) Urine Microscopic WBC 1 /HPF (0-5) Urine Squamous Epithelial Cells Mod /hpf (<5) Urine Amorphous Crystals Few /hpf (None Seen) Urine Bacteria Few /hpf (None Seen) H Urine Hyaline Casts Few /lpf (0 - 2) Urine Mucus Few (None Seen) Urine Glucose Normal mg/dL (Normal) Blood Gas Results Test 04/21/25 16:47 Arterial Blood pH 7.413 (7.350-7.450) FiO2 % 30.0 Labs and/or images reviewed: Labs reviewed by me, Image(s) reviewed by me Assessment/Plan Assessment/Plan Impression: -choledocholithiasis -acute pancreatitis -small-bowel obstruction -dementia -cachexia -sepsis -COPD -GERD Plan: Events: Hemodynamically stable. CPAP trial. Currently on high PS -surgical consultation : Recommendations appreciated -TPN, D5ns with kcl -echocardiogram -Continue Zosyn -PPI -pain management -LG to LIS -Repeat labs, CXR, ABG in am. Total time spent with patient discussing and formulating plan of care: 35 minutes. This medical document was created using an electronic medical record system with [employer] dictation system. Although this document has been carefully reviewed, there may still be some phonetic and typographical errors. These areas are purely typographical due to imperfections of the software programs, and do not reflect any compromise in the patient's medical care. Plan discussed with: Patient, Other (RN) My Orders Orders - JAYDEN HILL NP Procedure Category Date Status Time Abg W/ Co-Ox RT 04/21/25 Logged 16:21 Cpap/Sed Vacation Med ORDERS 04/22/25 Transmitted Weaning 07:23 Cpap/Sed Vacation Med ORDERS 04/22/25 Transmitted Weaning 08:19 Cpap Trial For Am ORDERS 04/22/25 Transmitted 08:19 Dexmedetomidine Hcl PHA 04/22/25 In Process In D5w (Precedex) 09:00 Date of Service: Apr 22, 2025 Billing Provider: JAYDEN HILL NP Common Visit Codes: [id number] CARE 30-74 MIN JAYDEN HILL NP Apr 22, 2025 09:01
[2025-04-22] MEDS: DEXMEDETOMIDINE HCL IN D5W 100 ML IV SCH (09:15)
[2025-04-22] MEDS: SODIUM PHOSPHATES 40 MEQ in D5W 5% 250 ML IV ONE (13:36)
[2025-04-22 16:56] LABS: Base Excess -1.2 mmol/L (-2.0-3.0)
[2025-04-22] MEDS: IPRATROPIUM BROM 0.5 MG/2.5ML INH SOL NEB SCH (18:15)
[2025-04-22] MEDS: ALBUTEROL SULF 2.5 MG/0.5ML(0.5%) NEB SOLN NEB SCH (18:15)
--- NOTE | 2025-04-22 18:56 | DVHPN2 ---
Progress Note Date Seen: Apr 22, 2025 Resident Creating Document: HOLLY DEAN RESIDENT Medical Necessity Reason Pt with a Central, PICC or Fol: No Subjective Review of Systems Patient is seen and examined at the bedside Status post exploratory laparotomy with small-bowel resection with anastomosis On mechanical ventilation, failed CPAP trial today NG to LIS with the 200 mL dark green suction Objective vital signs Vital Sign Date Time Temp Pulse Resp B/P (MAP) Pulse Ox O2 Delivery O2 Flow Rate FiO2 04/22/25 18:45 99.0 72 25 116/47 (70) 96 210.2 04/22/25 18:15 Mechanical Ventilator+ 30 30 04/20/25 10:00 2 Total Intake and Output 04/21/25 04/21/25 04/22/25 15:00 23:00 07:00 Intake Total 1065.328 ml 1068.112 ml 941.204 ml Output Total 575 ml 700 ml Balance 1065.328 ml 493.112 ml 241.204 ml medications Current Medications Medications Dose Ordered Sig/Gregory Route Start Time Stop Time Status Last Admin Dose Admin Pantoprazole Sodium 40 mg DAILY IV 04/16/25 10:00 04/22/25 09:16 40 MG Piperacillin Sod/ Tazobactam Sod 100 ml @ 25 mls/hr Q8HR IV 04/16/25 22:00 04/22/25 13:16 25 MLS/HR Hydralazine HCl 10 mg Q6HP PRN IV 04/17/25 09:30 Amino Acids 0 ml @ 0 mls/hr PER PHARMACY IV 04/18/25 17:45 Amino Acids/ Electrolytes/ Dextrose 1,000 ml @ 41 mls/hr DAILY@2200 IV 04/18/25 22:00 04/22/25 21:59 04/21/25 22:13 41 MLS/HR Midazolam HCl 50 ml @ 1 mls/hr Q24H IV 04/20/25 19:45 Fentanyl Citrate 250 ml @ 2.5 mls/hr Q24H IV 04/20/25 19:45 04/20/25 19:45 2.5 MLS/HR Propofol 100 ml @ 1.392 mls/ hr Q24H IV 04/20/25 22:15 04/22/25 00:02 6.96 MLS/HR Potassium Chloride/Dextrose/ Sod Cl 1,000 ml @ 75 mls/hr [id number] IV 04/21/25 08:30 04/22/25 08:09 75 MLS/HR Sodium Chloride 10 ml QSHIFT@10,22 IV 04/21/25 22:00 04/22/25 09:16 10 ML Potassium Phosphate 22 meq/ Calcium Gluconate 2.32 meq/ Magnesium Sulfate 4 meq/ Multivitamins 10 ml/Chromium/ Copper/Manganese/ Zinc 1 ml/Amino Acids/Dextrose/ Purified Water 1,021.9892 ml @ 42 mls/hr [id number] IV 04/22/25 22:00 04/23/25 21:59 Albuterol 2.5 mg Q6HR NEB 04/22/25 18:00 04/22/25 18:15 2.5 MG Ipratropium [place] 0.5 mg Q6HR NEB 04/22/25 18:00 04/22/25 18:15 0.5 MG Examination Gen - no pallor, mild scleral icterus Skin - Patients skin is warm and dry. HEENT - normocephalic, atraumatic, dry mucous membranes. Neck - supple, no lymphadenopathy Pulmonary - B/L equal breath sounds cardiovascular - regular S1,S2 heard GI - soft abdomen status post exploratory laparotomy midline incision covered in a sterile dressing. Bowel sounds hypoactive. 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 Cui Plan discussed with: Other (KIA Woodson) Dietary Evaluation Review Recommendations by RD: PPN/TPN Comments: 1) Increase TPN to meet at least 75% estimated daily needs 2) Advance to cardiac diet when medically feasible 3) Follow-up with gastroenterology and neurology 4) Continue to monitor I&O, labs, and skin integrity Expected Outcomes/Goals: 1) nutrition support to meet at least 75% estimated daily needs 2) labs to improve 3) diet to advance 4) gradual wt gain 5) f/u in 2-3 days HOLLY DEAN RESIDENT Apr 22, 2025 18:56
[2025-04-22] MEDS: [UNRECOGNIZED DRUG - OTHER] IV NR (21:47)
[2025-04-22] MEDS: POTASSIUM PHOSPHATE IV NR (21:47)
[2025-04-22] MEDS: CALCIUM GLUC IV NR (21:47)
[2025-04-23] VITALS (103 sets, daily range): BP systolic 79–144; BP diastolic 22–68; PULSE 57–77; RESP 12–27; TEMP 74.7–98.6; O2SAT 83–100
[2025-04-23 03:41] LABS: Hematocrit 29.3 % (36.0-46.0); Hemoglobin 9.6 g/dL (12.2-16.2); Mean Corpuscular Hemoglobin 33.2 pg (28.0-32.0); Mean Corpuscular Volume 101.3 fL (80.0-100.0); Nucleated Red Blood Cells % 0.0 %
[2025-04-23 04:07] LABS: Alanine Aminotransferase 21 U/L (7-40); Alkaline Phosphatase 46 U/L (46-116); Anion Gap 9 (5-15); BUN/Creatinine Ratio 31.8 (10.0-20.0); Blood Urea Nitrogen 14 mg/dL (9-23); Carbon Dioxide 23 mmol/L (20-31); Potassium 3.7 mmol/L (3.5-5.1); Sodium 140 mmol/L (136-145)
[2025-04-23 04:08] LABS: Bilirubin, Total 0.6 mg/dL (0.2-1.0)
[2025-04-23 04:09] LABS: Albumin 2.6 g/dL (3.2-4.8); Calcium 7.5 mg/dL (8.7-10.4); Chloride 108 mmol/L (98-107); Glucose 130 mg/dL (74-106); Magnesium 1.6 mg/dL (1.6-2.6); Total Protein 4.6 g/dL (5.7-8.2)
[2025-04-23 04:56] LABS: Macrocytosis Slight
--- NOTE | 2025-04-23 05:00 | DVH ---
CHEST RADIOGRAPH Indication: intubated Technique: Single frontal view of the chest was obtained COMPARISON: XY CHEST PORTABLE on DOS: 04/22/25, XY CHEST XRAY 1 VIEW on DOS: 04/21/25, XY CHEST XRAY 1 VIEW on DOS: 04/20/25, XY CHEST XRAY 1 VIEW on DOS: 04/17/25, XY CHEST XRAY 1 VIEW on DOS: 04/17/25 FINDINGS: Lines and Tubes: Slight interval retraction of the endotracheal tube such that the tip now projects a pproximately 6.7 cm above the level of the choco. Remaining lines and tubes unchanged. Lungs: Small bilateral pleural effusions, [id number]. Moderate diffuse increased promin ence of the pulmonary vasculature. No pneumothorax. Cardiomediastinal contours: Cardiomegaly. Bones: Unremarkable Increased right subdiaphragmatic lucency may represent pneumoperitoneum versus interposition of bowel between the hepatic dome and right hemidiaphragm. IMPRESSION: 1. Slight interval retraction of the endotracheal tube such that the tip now projects approximately 6 .7 cm above the level of the choco. Remaining lines and tubes unchanged. 2. Increased right subdiaphragmatic lucency may represent pneumoperitoneum versus interposition of elis wel between the hepatic dome and right hemidiaphragm. Repeat chest x-ray recommended for re-evaluatio n. 3. Cardiomegaly with small bilateral pleural effusions and pulmonary vascular congestion.
--- NOTE | 2025-04-23 05:55 | DVH ---
CHEST RADIOGRAPH Indication: R/O PNEUMOPERITONEUM Technique: Single frontal view of the chest was obtained Comparison: Chest radiograph dated 04/23/2025. FINDINGS: Lines and Tubes: The endotracheal tube terminates 5.9 cm above the choco. There is a right central venous catheter with its tip terminating in the right atrium. Enteric tube terminates. Lungs: There is a left basilar opacity. Pleura: No effusion. No pneumothorax. Cardiomediastinal contours: Cardiomegaly. Bones: No acute osseous abnormality. There is lucency in the left upper quadrant which could represen t pneumoperitoneum. IMPRESSION: 1. Lucency in the left upper quadrant which could represent pneumoperitoneum. CT of the abdomen pelvi s is recommended for further evaluation. 2. Cardiomegaly. 3. Left basilar opacity.
--- NOTE | 2025-04-23 09:23 | DVHPN2 ---
Subjective Pt intubated, encephalopathic Reviewed: Care Plan, H&P, Labs, Medications Changes from previous H/P or p: No Changes General: Per HPI Objective Vitals Vital Signs Date Time Temp Pulse Resp B/P (MAP) Pulse Ox O2 Delivery O2 Flow Rate FiO2 04/23/25 09:17 63 14 99/25 (49) 97 30 04/23/25 06:30 97.5 207.5 04/23/25 06:00 Mechanical Ventilator+ Intake/Output Intake and Output 04/23/25 07:00 Intake Total 3154.85 ml Output Total 2875 ml Balance 279.85 ml IV Total 3154.85 ml Output Urine Total 2525 ml Gastric Drainage Total 350 ml General Appearance: Alert, Cooperative, mild distress HEENT: PERRLA, Other Lungs: Clear to auscultation, Normal air movement, Other (Mechanical ventilation) Cardiovascular: Regular rate, Normal S1, Normal S2 Abdomen: No tenderness, No hepatospenomegaly, Other (Absent bowel sounds) Genitourinary: No Apparent Abnormalities (Grewal catheter) Musculoskeletal: Normal sensory function, Normal motor function Extremities: No edema Neuro: Other Skin: Dry, Intact, Wounds, Other (Surgical wound D&I) Psych/Mental Status: Mood NL Medications Current Medications Medications Dose Ordered Sig/Gregory Route Start Time Stop Time Status Last Admin Dose Admin Pantoprazole Sodium 40 mg DAILY IV 04/16/25 10:00 04/23/25 08:54 40 MG Piperacillin Sod/ Tazobactam Sod 100 ml @ 25 mls/hr Q8HR IV 04/16/25 22:00 04/23/25 05:39 25 MLS/HR Hydralazine HCl 10 mg Q6HP PRN IV 04/17/25 09:30 Amino Acids 0 ml @ 0 mls/hr PER PHARMACY IV 04/18/25 17:45 Midazolam HCl 50 ml @ 1 mls/hr Q24H IV 04/20/25 19:45 Fentanyl Citrate 250 ml @ 2.5 mls/hr Q24H IV 04/20/25 19:45 04/20/25 19:45 2.5 MLS/HR Propofol 100 ml @ 1.392 mls/ hr Q24H IV 04/20/25 22:15 04/22/25 00:02 6.96 MLS/HR Potassium Chloride/Dextrose/ Sod Cl 1,000 ml @ 75 mls/hr [id number] IV 04/21/25 08:30 04/22/25 21:50 75 MLS/HR Sodium Chloride 10 ml QSHIFT@ IV 04/21/25 22:00 04/23/25 08:54 10 ML Potassium Phosphate 22 meq/ Calcium Gluconate 2.32 meq/ Magnesium Sulfate 4 meq/ Multivitamins 10 ml/Chromium/ Copper/Manganese/ Zinc 1 ml/Amino Acids/Dextrose/ Purified Water 1,021.9892 ml @ 42 mls/hr [id number] IV 04/22/25 22:00 04/23/25 21:59 04/22/25 21:47 42 MLS/HR Albuterol 2.5 mg Q6HR NEB 04/22/25 18:00 04/23/25 05:59 2.5 MG Ipratropium [place] 0.5 mg Q6HR NEB 04/22/25 18:00 04/23/25 05:59 0.5 MG Laboratory Results Laboratory Tests 04/23/25 03:10 Chemistry Test 04/23/25 03:10 Albumin 2.6 g/dL (3.2-4.8) L Calcium Level 7.5 mg/dL (8.7-10.4) L Magnesium Level 1.6 mg/dL (1.6-2.6) Phosphorus Level 3.4 mg/dL (2.4-5.1) Total Protein 4.6 g/dL (5.7-8.2) L LFT Test 04/23/25 03:10 Alanine Aminotransferase (ALT) 21 U/L (7-40) Alkaline Phosphatase 46 U/L (46-116) Aspartate Amino Transferase (AST) 12 U/L (13-40) L Total Bilirubin 0.6 mg/dL (0.2-1.0) Urinalysis Test 04/15/25 15:45 Urine Color Light-orange (Yellow) Urine Clarity Ex.turbid (Clear) Urine pH 5.5 (5.0-9.0) Urine Specific [place] 1.028 (1.001-1.035) Urine Protein 1+ (Negative) H Urine Ketones Negative (Negative) Urine Blood 1+ /uL (Negative) H Urine Nitrite Negative (Negative) Urine Bilirubin Negative (Negative) Urine Urobilinogen 3 mg/dL (Negative) H Urine Leukocyte Esterase Negative /uL (Negative) Urine RBC 16 /hpf (0 - 4) Urine Microscopic WBC 1 /HPF (0-5) Urine Squamous Epithelial Cells Mod /hpf (<5) Urine Amorphous Crystals Few /hpf (None Seen) Urine Bacteria Few /hpf (None Seen) H Urine Hyaline Casts Few /lpf (0 - 2) Urine Mucus Few (None Seen) Urine Glucose Normal mg/dL (Normal) Blood Gas Results Test 04/22/25 13:36 Arterial Blood pH 7.423 (7.350-7.450) FiO2 % 30.0 Microbiology Microbiology Date/Time Source Procedure Growth Status 04/20/25 22:35 Sputum Endotracheal Wash Gram Stain - Final Resulted 04/20/25 22:35 Sputum Endotracheal Wash Respiratory Culture - Preliminary Resulted 04/20/25 21:40 Nose MRSA Screen - Final Complete Labs and/or images reviewed: Labs reviewed by me, Image(s) reviewed by me Assessment/Plan Assessment/Plan Impression: -choledocholithiasis -acute pancreatitis -small-bowel obstruction -dementia -cachexia -sepsis -COPD -GERD Plan: Events: Questionable pneumoperitoneum on chest x-ray. CT scan of the abdomen and pelvis to rule out pneumoperitoneum. We will proceed with spontaneous breathing trial thereafter if CT scan is unremarkable. -surgical consultation : Discussed case with Dr. Cui yesterday -TPN, D5ns with kcl -continue sedation with fentanyl and Precedex until aggressively weaning patient. -Continue Zosyn -PPI -pain management -LG to LIS -Repeat labs, CXR, ABG in am. Total time spent with patient discussing and formulating plan of care: 35 minutes. This medical document was created using an electronic medical record system with [employer] dictation system. Although this document has been carefully reviewed, there may still be some phonetic and typographical errors. These areas are purely typographical due to imperfections of the software programs, and do not reflect any compromise in the patient's medical care. Plan discussed with: Patient, Other (RN) My Orders Orders - JAYDEN HILL SCRAP CUTTER Procedure Category Date Status Time Albuterol Medneb PHA 04/22/25 In Process (Ventolin Medneb) 18:00 Ipratropium Medneb PHA 04/22/25 In Process (Atrovent Medneb) 18:00 Mrsa Screen JANESSA 04/22/25 In Process 15:28 Apply Z-Guard SAGE 04/22/25 In Process 10:04 * Dietary Consult CONS 04/22/25 Transmitted 17:34 Chest Portable XY 04/23/25 Resulted 04:00 Ct Ab Pel Wo Con-No CT 04/23/25 Logged Oral Or Iv 08:07 Date of Service: Apr 23, 2025 Billing Provider: JAYDEN HILL NP Common Visit Codes: [id number] CARE 30-74 MIN JAYDEN HILL NP Apr 23, 2025 09:23
--- NOTE | 2025-04-23 12:47 | DVH ---
CLINICAL HISTORY: Rule out pneumoperitoneum TECHNIQUE: CT of the abdomen and pelvis was performed without intravenous contrast. This exam was per formed according to our departmental dose optimization program. Up-to-date CT equipment and radiation dose reduction techniques are utilized as appropriate. 9.75 CTDI: 9.75 DLP: 521.43 WID: COMPARISON: CT abdomen pelvis from 04/15/2025 FINDINGS: Lower Thorax: Increase in small to moderate bilateral pleural effusions. Large left lower lobe and sm all dependent right lower lobe consolidations. additional linear bibasilar scarring or atelectasis. G ranuloma in the right middle lobe. Sub 5 mm right middle lobe pulmonary nodule on series 602, image 3 6. Dense mitral annular calcification. Upper Limits of normal-sized heart. Up to moderate 3-vessel ca lcified coronary artery disease. Tip of a central venous catheter terminates in the cavoatrial junct ion. Liver and Biliary system: Grossly unremarkable unopacified liver. There is persistent dilatation of t he common bile duct status post cholecystectomy which measures 1.3 cm on series 601, image 59. Mild intrahepatic bile duct dilatation. There is a 6.8 mm stone in the distal common bile duct on series 2 , image 36. Spleen: Unremarkable. Adrenal Glands and Kidneys: Grossly normal adrenal glands. There is a hypodensity in the interpolar r ight kidney not optimally evaluated without contrast though may reflect a cyst. No hydronephrosis or nephrolithiasis. Pancreas and Retroperitoneum: Mildly atrophic pancreas. The prominent retroperitoneal lymph nodes, pr edominantly are normal-size. Aorta and Major Vessels: Aortoiliac vessels are normal in caliber with moderate calcified atheroscler otic plaque. Bowel, Mesentery and Peritoneal space: There is pneumoperitoneum up to moderate volume in the anterio r abdomen. There has been interval small bowel resections with anastomosis in the bilateral lower meg drants. Tip of a gastric tube is in the proximal body of the stomach. There are a few persistent mild ly dilated small bowel loops in the left abdomen for example proximally where a small bowel loop jeanine ures up to 3.8 cm on series 2, image 34. The remainder of the small bowel and large bowel is normal c aliber. There is mesenteric venous congestion and mild ascites. No definite well-formed fluid collect ion on noncontrast exam. Pelvis: Limited evaluation of the pelvis due to beam hardening artifact from the bilateral hip arthro plasties. No grossly enlarged pelvic lymph nodes. Grewal catheter in the urinary bladder. Abdominal wall and Osseous Structures: There is body wall edema. There are bilateral hip arthroplast ies in place with the visualized components of the hardware intact. There is bony demineralization. There is soft tissue emphysema in the lower anterior abdominal wall bilaterally. Multilevel lower tho racic and lumbar spondylosis. There are multiple greater than 50% height loss chronic compression fra ctures of T11, T12, L1, and L2 and moderate height loss chronic compression fracture of T9. Chondroc alcinosis of the pubic symphysis. IMPRESSION: 1. Interval small-bowel resections with anastomoses of small bowel in the bilateral lower quadrants. 2. There are a few persistent mildly dilated small bowel loops in the left abdomen although are predo minantly normal-sized. This could reflect postoperative ileus or enteritis, versus persistent small-b owel obstruction. 3. Pneumoperitoneum. Correlate with the timing of surgery as this could be within postoperative rang e. If there is concern for postoperative leak, follow-up exam could be performed with water-soluble e nteral contrast. 4. Increase in small to moderate bilateral pleural effusions, body wall edema, mesenteric venous yomi estion and mild ascites compatible with systemic volume overload and/or CHF. 5. Large consolidation in the left lower lobe and small dependent right lower lobe consolidation. Thi s could reflect atelectasis, though pneumonia (which can be on the basis of aspiration) could contrib gabi to this appearance. 6. Persistent biliary ductal dilatation and choledocholithiasis in the distal common bile duct. If t here is clinical concern for biliary obstruction, MRCP / ERCP could be pursued for further evaluation .
[2025-04-23] MEDS: GASTROGRAFIN 120 ML SOL ONE (14:01)
--- NOTE | 2025-04-23 15:30 | DVHPN2 ---
Progress Note Date Seen: Apr 22, 2025 Medical Necessity Reason Pt with a Central, PICC or Fol: No Objective vital signs Vital Sign Date Time Temp Pulse Resp B/P (MAP) Pulse Ox O2 Delivery O2 Flow Rate FiO2 04/23/25 15:12 61 16 111/32 (58) 99 30 04/23/25 12:45 96.3 205.3 04/23/25 12:00 Mechanical Ventilator+ Total Intake and Output 04/22/25 04/22/25 04/23/25 15:00 23:00 07:00 Intake Total 1107.55 ml 1158.40 ml 888.90 ml Output Total 1750 ml 1125 ml Balance 1107.55 ml -591.60 ml -236.10 ml medications Current Medications Medications Dose Ordered Sig/Gregory Route Start Time Stop Time Status Last Admin Dose Admin Pantoprazole Sodium 40 mg DAILY IV 04/16/25 10:00 04/23/25 08:54 40 MG Piperacillin Sod/ Tazobactam Sod 100 ml @ 25 mls/hr Q8HR IV 04/16/25 22:00 04/23/25 14:42 25 MLS/HR Hydralazine HCl 10 mg Q6HP PRN IV 04/17/25 09:30 Amino Acids 0 ml @ 0 mls/hr PER PHARMACY IV 04/18/25 17:45 Midazolam HCl 50 ml @ 1 mls/hr Q24H IV 04/20/25 19:45 Fentanyl Citrate 250 ml @ 2.5 mls/hr Q24H IV 04/20/25 19:45 04/20/25 19:45 2.5 MLS/HR Propofol 100 ml @ 1.392 mls/ hr Q24H IV 04/20/25 22:15 04/22/25 00:02 6.96 MLS/HR Potassium Chloride/Dextrose/ Sod Cl 1,000 ml @ 75 mls/hr [id number] IV 04/21/25 08:30 04/23/25 13:24 75 MLS/HR Sodium Chloride 10 ml QSHIFT@,22 IV 04/21/25 22:00 04/23/25 08:54 10 ML Potassium Phosphate 22 meq/ Calcium Gluconate 2.32 meq/ Magnesium Sulfate 4 meq/ Multivitamins 10 ml/Chromium/ Copper/Manganese/ Zinc 1 ml/Amino Acids/Dextrose/ Purified Water 1,021.9892 ml @ 42 mls/hr [id number] IV 04/22/25 22:00 04/23/25 21:59 04/22/25 21:47 42 MLS/HR Albuterol 2.5 mg Q6HR NEB 04/22/25 18:00 04/23/25 11:29 2.5 MG Ipratropium [place] 0.5 mg Q6HR NEB 04/22/25 18:00 04/23/25 11:29 0.5 MG Potassium Acetate 40 meq/Calcium Gluconate 4.65 meq/Magnesium Sulfate 12 meq/ Multivitamins 10 ml/Chromium/ Copper/Manganese/ Zinc 1 ml/Amino Acids/Dextrose 1,094 ml @ 45 mls/hr [id number] IV 04/23/25 22:00 04/24/25 21:59 laboratory and microbiology Laboratory Tests 04/23/25 03:10 Test 04/23/25 03:10 Range/Units Serum Glucose 130 H 74-106 mg/dL Microbiology Date/Time Source Procedure Growth Status 04/20/25 22:35 Sputum Endotracheal Wash Gram Stain - Final Resulted 04/20/25 22:35 Sputum Endotracheal Wash Respiratory Culture - Preliminary Resulted 04/20/25 21:40 Nose MRSA Screen - Final Complete Problem List/Assessment/Plan Problem List/Assessment/Plan AFEBRILE VSS NO BM S/P E LAP BOWEL RESECTION WOUND DRESSING DRY INTUBATED WBC TRENDING DOWN CONTINUE SUPPORTIVE CARE FAMILY AWARE OF PT CONDITION Plan discussed with: Other Dietary Evaluation Review Recommendations by RD: PPN/TPN Comments: 1) Increase TPN to meet at least 75% estimated daily needs 2) Advance to cardiac diet when medically feasible 3) Follow-up with gastroenterology and neurology 4) Continue to monitor I&O, labs, and skin integrity Expected Outcomes/Goals: 1) nutrition support to meet at least 75% estimated daily needs 2) labs to improve 3) diet to advance 4) gradual wt gain 5) f/u in 2-3 days GLORIA MCNEAL MD Apr 23, 2025 15:30
--- NOTE | 2025-04-23 15:33 | DVHPN2 ---
Progress Note Date Seen: Apr 23, 2025 Medical Necessity Reason Pt with a Central, PICC or Fol: No Objective vital signs Vital Sign Date Time Temp Pulse Resp B/P (MAP) Pulse Ox O2 Delivery O2 Flow Rate FiO2 04/23/25 15:12 61 16 111/32 (58) 99 30 04/23/25 12:45 96.3 205.3 04/23/25 12:00 Mechanical Ventilator+ Total Intake and Output 04/22/25 04/22/25 04/23/25 15:00 23:00 07:00 Intake Total 1107.55 ml 1158.40 ml 888.90 ml Output Total 1750 ml 1125 ml Balance 1107.55 ml -591.60 ml -236.10 ml medications Current Medications Medications Dose Ordered Sig/Gregory Route Start Time Stop Time Status Last Admin Dose Admin Pantoprazole Sodium 40 mg DAILY IV 04/16/25 10:00 04/23/25 08:54 40 MG Piperacillin Sod/ Tazobactam Sod 100 ml @ 25 mls/hr Q8HR IV 04/16/25 22:00 04/23/25 14:42 25 MLS/HR Hydralazine HCl 10 mg Q6HP PRN IV 04/17/25 09:30 Amino Acids 0 ml @ 0 mls/hr PER PHARMACY IV 04/18/25 17:45 Midazolam HCl 50 ml @ 1 mls/hr Q24H IV 04/20/25 19:45 Fentanyl Citrate 250 ml @ 2.5 mls/hr Q24H IV 04/20/25 19:45 04/20/25 19:45 2.5 MLS/HR Propofol 100 ml @ 1.392 mls/ hr Q24H IV 04/20/25 22:15 04/22/25 00:02 6.96 MLS/HR Potassium Chloride/Dextrose/ Sod Cl 1,000 ml @ 75 mls/hr [id number] IV 04/21/25 08:30 04/23/25 13:24 75 MLS/HR Sodium Chloride 10 ml QSHIFT@,22 IV 04/21/25 22:00 04/23/25 08:54 10 ML Potassium Phosphate 22 meq/ Calcium Gluconate 2.32 meq/ Magnesium Sulfate 4 meq/ Multivitamins 10 ml/Chromium/ Copper/Manganese/ Zinc 1 ml/Amino Acids/Dextrose/ Purified Water 1,021.9892 ml @ 42 mls/hr [id number] IV 04/22/25 22:00 04/23/25 21:59 04/22/25 21:47 42 MLS/HR Albuterol 2.5 mg Q6HR NEB 04/22/25 18:00 04/23/25 11:29 2.5 MG Ipratropium [place] 0.5 mg Q6HR NEB 04/22/25 18:00 04/23/25 11:29 0.5 MG Potassium Acetate 40 meq/Calcium Gluconate 4.65 meq/Magnesium Sulfate 12 meq/ Multivitamins 10 ml/Chromium/ Copper/Manganese/ Zinc 1 ml/Amino Acids/Dextrose 1,094 ml @ 45 mls/hr [id number] IV 04/23/25 22:00 04/24/25 21:59 laboratory and microbiology Laboratory Tests 04/23/25 03:10 Test 04/23/25 03:10 Range/Units Serum Glucose 130 H 74-106 mg/dL Microbiology Date/Time Source Procedure Growth Status 04/20/25 22:35 Sputum Endotracheal Wash Gram Stain - Final Resulted 04/20/25 22:35 Sputum Endotracheal Wash Respiratory Culture - Preliminary Resulted 04/20/25 21:40 Nose MRSA Screen - Final Complete Problem List/Assessment/Plan Problem List/Assessment/Plan AFEBRILE VSS NO BM WOUND DRESSING DRY INTUBATED BUT AWAKE AND RESPONSIVE REPEAT CT SCAN MODERATE PNEUMOPERITONEUM POSSIBLE DUE TO RECENT E LAP CONSIDER SMALL BOWEL FOLLOW THROUGH TO R/O BOWEL PERFORATION WBC TRENDING DOWN CONTINUE SUPPORTIVE CARE FAMILY AWARE OF PT CONDITION NURSE AT BEDSIDE Plan discussed with: Other Dietary Evaluation Review Recommendations by RD: PPN/TPN Comments: 1) Increase TPN to meet at least 75% estimated daily needs 2) Advance to cardiac diet when medically feasible 3) Follow-up with gastroenterology and neurology 4) Continue to monitor I&O, labs, and skin integrity Expected Outcomes/Goals: 1) nutrition support to meet at least 75% estimated daily needs 2) labs to improve 3) diet to advance 4) gradual wt gain 5) f/u in 2-3 days GLORIA MCNEAL MD Apr 23, 2025 15:33
--- NOTE | 2025-04-23 19:23 | DVHPN2 ---
Progress Note Date Seen: Apr 23, 2025 Resident Creating Document: JHJorge AJHOLLY Mccann RESIDENT Medical Necessity Reason Pt with a Central, PICC or Fol: No Subjective Review of Systems Patient seen and examined on the bedside In the morning chest x-ray, urine with the diaphragm seen on the right side, repeat chest x-ray showed air under the diaphragm on the left side, CT abdomen pelvis repeated which showed pneumoperitoneum Patient to undergo small-bowel series to look for extravasation of contrast To Eliquis with a about 60 mL of suction Objective vital signs Vital Sign Date Time Temp Pulse Resp B/P (MAP) Pulse Ox O2 Delivery O2 Flow Rate FiO2 04/23/25 19:00 97.2 70 15 113/35 (61) 98 207.0 04/23/25 18:30 Mechanical Ventilator+ 30 30 Total Intake and Output 04/22/25 04/22/25 04/23/25 15:00 23:00 07:00 Intake Total 1107.55 ml 1158.40 ml 1015.50 ml Output Total 1750 ml 1125 ml Balance 1107.55 ml -591.60 ml -109.50 ml medications Current Medications Medications Dose Ordered Sig/Gregory Route Start Time Stop Time Status Last Admin Dose Admin Pantoprazole Sodium 40 mg DAILY IV 04/16/25 10:00 04/23/25 08:54 40 MG Piperacillin Sod/ Tazobactam Sod 100 ml @ 25 mls/hr Q8HR IV 04/16/25 22:00 04/23/25 14:42 25 MLS/HR Hydralazine HCl 10 mg Q6HP PRN IV 04/17/25 09:30 Amino Acids 0 ml @ 0 mls/hr PER PHARMACY IV 04/18/25 17:45 Midazolam HCl 50 ml @ 1 mls/hr Q24H IV 04/20/25 19:45 Fentanyl Citrate 250 ml @ 2.5 mls/hr Q24H IV 04/20/25 19:45 04/20/25 19:45 2.5 MLS/HR Propofol 100 ml @ 1.392 mls/ hr Q24H IV 04/20/25 22:15 04/22/25 00:02 6.96 MLS/HR Potassium Chloride/Dextrose/ Sod Cl 1,000 ml @ 75 mls/hr [id number] IV 04/21/25 08:30 04/23/25 13:24 75 MLS/HR Sodium Chloride 10 ml QSHIFT@, IV 04/21/25 22:00 04/23/25 08:54 10 ML Potassium Phosphate 22 meq/ Calcium Gluconate 2.32 meq/ Magnesium Sulfate 4 meq/ Multivitamins 10 ml/Chromium/ Copper/Manganese/ Zinc 1 ml/Amino Acids/Dextrose/ Purified Water 1,021.9892 ml @ 42 mls/hr [id number] IV 04/22/25 22:00 04/23/25 21:59 04/22/25 21:47 42 MLS/HR Albuterol 2.5 mg Q6HR NEB 04/22/25 18:00 04/23/25 18:25 2.5 MG Ipratropium [place] 0.5 mg Q6HR NEB 04/22/25 18:00 04/23/25 18:25 0.5 MG Potassium Acetate 40 meq/Calcium Gluconate 4.65 meq/Magnesium Sulfate 12 meq/ Multivitamins 10 ml/Chromium/ Copper/Manganese/ Zinc 1 ml/Amino Acids/Dextrose 1,094 ml @ 45 mls/hr [id number] IV 04/23/25 22:00 04/24/25 21:59 Examination Gen - no pallor, mild scleral icterus Skin - Patients skin is warm and dry. HEENT - normocephalic, atraumatic, dry mucous membranes. Neck - supple, no lymphadenopathy Pulmonary - B/L equal breath sounds cardiovascular - regular S1,S2 heard GI - soft abdomen status post exploratory laparotomy midline incision covered in a sterile dressing. Bowel sounds hypoactive. 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 Status post exploratory laparotomy Choledocholithiasis Plan Continue on TPN NPO NG to LIS CT abdomen pelvis done on 04/23 showed pneumoperitoneum, small bowel Gastrografin series to perform to look for any extravasation MRCP done on 04/16 showed CBD stone measuring up to 1 cm with a common bile duct dilated measuring up to 1.7 cm and dilation of intrahepatic biliary ducts Plan is with the patient recovers from the acute illness and exploratory laparotomy and once she is stable, he mitral feet MRCP and if it still shows a CBD stone patient will need transferred to [facility] for ERCP PUD prophylaxis with Protonix Plan discussed with Dr. Cui Plan discussed with: Other (Nitza Barragan) Dietary Evaluation Review Recommendations by RD: PPN/TPN Comments: 1) Increase TPN to meet at least 75% estimated daily needs 2) Advance to cardiac diet when medically feasible 3) Follow-up with gastroenterology and neurology 4) Continue to monitor I&O, labs, and skin integrity Expected Outcomes/Goals: 1) nutrition support to meet at least 75% estimated daily needs 2) labs to improve 3) diet to advance 4) gradual wt gain 5) f/u in 2-3 days HOLLY DEAN RESIDENT Apr 23, 2025 19:23
--- NOTE | 2025-04-23 21:05 | DVH ---
Procedure: XY SMALL BOWEL SERIES-W GASTROGRA Reason for study/Clinical History: rule out small bowel leak Comparison Study: None Technique: Single contrast small bowel series performed. FINDINGS/IMPRESSION: Initial supervisor paste mixing view of the abdomen and pelvis appears demonstrates no acute process. Contrast was administered through the orogastric tube with evidence of gastroesophageal reflux. No vi sualized contrast extending into the colon of the physis radiographs likely compatible with ileus anuja elle partial small bowel obstruction. Consider follow-up KUB of the 18-24 hour time point. Small left -sided pleural effusion. Atelectasis in the left lung base. Bilateral hip arthroplasties.
[2025-04-23] MEDS: TPN PER PHARMACY IV NR (22:15)
[2025-04-24] VITALS (93 sets, daily range): BP systolic 91–250; BP diastolic 25–100; PULSE 62–120; RESP 14–34; TEMP 84.6–99.6; O2SAT 73–100
[2025-04-24 03:58] LABS: Hematocrit 28.4 % (36.0-46.0); Hemoglobin 9.5 g/dL (12.2-16.2); Mean Corpuscular Hemoglobin 33.6 pg (28.0-32.0); Mean Corpuscular Volume 100.6 fL (80.0-100.0); Nucleated Red Blood Cells % 0.2 %
[2025-04-24 04:11] LABS: Alanine Aminotransferase 21 U/L (7-40); Alkaline Phosphatase 54 U/L (46-116); Anion Gap 7 (5-15); BUN/Creatinine Ratio 39.5 (10.0-20.0); Blood Urea Nitrogen 17 mg/dL (9-23); Carbon Dioxide 24 mmol/L (20-31); Chloride 106 mmol/L (98-107); Magnesium 1.6 mg/dL (1.6-2.6); Potassium 4.4 mmol/L (3.5-5.1); Sodium 137 mmol/L (136-145)
[2025-04-24 04:12] LABS: Bilirubin, Total 0.6 mg/dL (0.2-1.0)
[2025-04-24 04:16] LABS: Albumin 2.7 g/dL (3.2-4.8); Calcium 7.8 mg/dL (8.7-10.4); Glucose 116 mg/dL (74-106); Total Protein 4.9 g/dL (5.7-8.2)
[2025-04-24 05:49] LABS: Anisocytosis Slight; Macrocytosis Slight
[2025-04-24 07:34] LABS: Base Excess -3.9 mmol/L (-2.0-3.0)
--- NOTE | 2025-04-24 08:34 | DVH ---
Exam: XY KUB ABDOMEN SINGLE VIEW Indication: F/U SBS, R/O LEAKAGE Comparison: CT CT AB PEL WO CON-NO ORAL OR IV on DOS: 04/23/25, XY KUB ABDOMEN SINGLE VIEW on DOS: , XY KUB ABDOMEN SINGLE VIEW on DOS: 04/18/25, XY KUB ABDOMEN SINGLE VIEW on DOS: 04/17/25, XY KUB ABDOMEN SINGLE VIEW on DOS: 04/16/25 Technique: 2 radiographic views of the abdomen. Findings: Nonspecific bowel-gas pattern. There is no definite evidence for pneumoperitoneum. No abnormal calcifications noted. Bilateral hip arthroplasty. Impression: Nonspecific bowel-gas pattern. No definite radiographic findings of enteric leak. Clinical correlation advised.
--- NOTE | 2025-04-24 08:46 | DVHPN2 ---
Subjective Pt intubated, encephalopathic Reviewed: Care Plan, H&P, Labs, Medications Changes from previous H/P or p: No Changes General: Per HPI Objective Vitals Vital Signs Date Time Temp Pulse Resp B/P (MAP) Pulse Ox O2 Delivery O2 Flow Rate FiO2 04/24/25 06:00 16 97 Mechanical Ventilator+ 30 30 04/24/25 06:00 69 04/24/25 04:08 99/35 (56) 04/24/25 02:00 98.6 209.5 Intake/Output Intake and Output 04/24/25 07:00 Intake Total 2580.8 ml Output Total 2275 ml Balance 305.8 ml Intake Oral 0 ml IV Total 2580.8 ml Output Urine Total 1325 ml Gastric Drainage Total 950 ml General Appearance: Alert, Cooperative, mild distress HEENT: PERRLA, Other Lungs: Clear to auscultation, Normal air movement, Other (Mechanical ventilation) Cardiovascular: Regular rate, Normal S1, Normal S2 Abdomen: No tenderness, No hepatospenomegaly, Other (Absent bowel sounds) Genitourinary: No Apparent Abnormalities (Grewal catheter) Musculoskeletal: Normal sensory function, Normal motor function Extremities: No edema Neuro: Other Skin: Dry, Intact, Wounds, Other (Surgical wound D&I) Psych/Mental Status: Mood NL Medications Current Medications Medications Dose Ordered Sig/Gregory Route Start Time Stop Time Status Last Admin Dose Admin Pantoprazole Sodium 40 mg DAILY IV 04/16/25 10:00 04/23/25 08:54 40 MG Piperacillin Sod/ Tazobactam Sod 100 ml @ 25 mls/hr Q8HR IV 04/16/25 22:00 04/24/25 06:06 25 MLS/HR Hydralazine HCl 10 mg Q6HP PRN IV 04/17/25 09:30 Amino Acids 0 ml @ 0 mls/hr PER PHARMACY IV 04/18/25 17:45 Midazolam HCl 50 ml @ 1 mls/hr Q24H IV 04/20/25 19:45 04/24/25 02:40 1 MLS/HR Fentanyl Citrate 250 ml @ 2.5 mls/hr Q24H IV 04/20/25 19:45 04/24/25 02:44 12.5 MLS/HR Propofol 100 ml @ 1.392 mls/ hr Q24H IV 04/20/25 22:15 04/22/25 00:02 6.96 MLS/HR Potassium Chloride/Dextrose/ Sod Cl 1,000 ml @ 75 mls/hr [id number] IV 04/21/25 08:30 04/24/25 02:41 75 MLS/HR Sodium Chloride 10 ml QSHIFT@10,22 IV 04/21/25 22:00 04/23/25 22:14 10 ML Albuterol 2.5 mg Q6HR NEB 04/22/25 18:00 04/24/25 06:19 2.5 MG Ipratropium [place] 0.5 mg Q6HR NEB 04/22/25 18:00 04/24/25 06:19 0.5 MG Potassium Acetate 40 meq/Calcium Gluconate 4.65 meq/Magnesium Sulfate 12 meq/ Multivitamins 10 ml/Chromium/ Copper/Manganese/ Zinc 1 ml/Amino Acids/Dextrose 1,094 ml @ 45 mls/hr [id number] IV 04/23/25 22:00 04/24/25 21:59 04/23/25 22:15 45 MLS/HR Laboratory Results Laboratory Tests 04/24/25 03:08 Chemistry Test 04/24/25 03:08 Albumin 2.7 g/dL (3.2-4.8) L Calcium Level 7.8 mg/dL (8.7-10.4) L Magnesium Level 1.6 mg/dL (1.6-2.6) Phosphorus Level 2.7 mg/dL (2.4-5.1) Total Protein 4.9 g/dL (5.7-8.2) L LFT Test 04/24/25 03:08 Alanine Aminotransferase (ALT) 21 U/L (7-40) Alkaline Phosphatase 54 U/L (46-116) Aspartate Amino Transferase (AST) 15 U/L (13-40) Total Bilirubin 0.6 mg/dL (0.2-1.0) Urinalysis Test 04/15/25 15:45 Urine Color Light-orange (Yellow) Urine Clarity Ex.turbid (Clear) Urine pH 5.5 (5.0-9.0) Urine Specific [place] 1.028 (1.001-1.035) Urine Protein 1+ (Negative) H Urine Ketones Negative (Negative) Urine Blood 1+ /uL (Negative) H Urine Nitrite Negative (Negative) Urine Bilirubin Negative (Negative) Urine Urobilinogen 3 mg/dL (Negative) H Urine Leukocyte Esterase Negative /uL (Negative) Urine RBC 16 /hpf (0 - 4) Urine Microscopic WBC 1 /HPF (0-5) Urine Squamous Epithelial Cells Mod /hpf (<5) Urine Amorphous Crystals Few /hpf (None Seen) Urine Bacteria Few /hpf (None Seen) H Urine Hyaline Casts Few /lpf (0 - 2) Urine Mucus Few (None Seen) Urine Glucose Normal mg/dL (Normal) Blood Gas Results Test 04/24/25 07:18 Arterial Blood pH 7.385 (7.350-7.450) FiO2 % 30.0 Microbiology Microbiology Date/Time Source Procedure Growth Status 04/22/25 15:28 Nose MRSA Screen - Final Complete 04/20/25 22:35 Sputum Endotracheal Wash Gram Stain - Final Resulted 04/20/25 22:35 Sputum Endotracheal Wash Respiratory Culture - Preliminary Resulted Labs and/or images reviewed: Image(s) reviewed by me Assessment/Plan Assessment/Plan Impression: -choledocholithiasis -acute pancreatitis -small-bowel obstruction -dementia -cachexia -sepsis -COPD -GERD Plan: Events: Small-bowel follow-through negative for bowel leak. No extravasation of contrast noted. Patient remains hemodynamically stable. Questionable ileus noted. Discussion made with the patient's [id number] about findings. All questions answered. Plans for spontaneous breathing trial today. -surgical consultation : Discussed case with Dr. Cui yesterday -TPN, D5ns with kcl -continue sedation with fentanyl and Precedex until aggressively weaning patient. -Continue Zosyn -PPI -pain management -LG to LIS -Repeat labs, CXR, ABG in am. Total time spent with patient discussing and formulating plan of care: 35 minutes. This medical document was created using an electronic medical record system with [employer] dictation system. Although this document has been carefully reviewed, there may still be some phonetic and typographical errors. These areas are purely typographical due to imperfections of the software programs, and do not reflect any compromise in the patient's medical care. Plan discussed with: Patient, Other (RN) My Orders Orders - JAYDEN HILL NP Procedure Category Date Status Time Small Bowel Series-W XY 04/23/25 Resulted Gastrogra 13:22 Abg W/ Co-Ox RT 10/23/25 Logged 06:00 Cpap/Sed Vacation Med ORDERS 04/24/25 Transmitted Weaning 08:37 Cpap/Sed Vacation Med ORDERS 04/24/25 Transmitted Weaning 08:37 Complete Blood Count LAB 04/25/25 Verified 05:00 Complete Blood Count LAB 04/26/25 Verified 05:00 Complete Blood Count LAB 04/27/25 Verified 05:00 Date of Service: Apr 24, 2025 Billing Provider: JAYDEN HILL NP Common Visit Codes: [id number] CARE 30-74 MIN JAYDEN HILL NP Apr 24, 2025 08:46
[2025-04-24 11:30] LABS: Base Excess -2.2 mmol/L (-2.0-3.0)
[2025-04-24] MEDS: FUROSEMIDE 20 MG/2 ML VIAL ONE (11:55)
[2025-04-24] MEDS: FUROSEMIDE 20 MG/2 ML VIAL IV ONE (11:55)
[2025-04-24] MEDS: EPINEPHrine HCL 0.5 ML NEB NEB ONE (12:15)
[2025-04-24] MEDS: LABETALOL HCL 20 MG/4 ML VL IV ONE ×2 (12:20→12:21)
[2025-04-24] MEDS: EPINEPHrine HCL 0.5 ML NEB ONE (12:24)
[2025-04-24] MEDS: hydrALAZINE HCL 20 MG/ML VL IV PRN (15:07)
[2025-04-24] MEDS: LABETALOL HCL 20 MG/4 ML VL IV PRN (16:12)
[2025-04-24] MEDS: MIDAZOLAM DRIP 100 mg/100mL NS 100 ML IV SCH (18:00)
[2025-04-24 19:45] LABS: Base Excess 0.9 mmol/L (-2.0-3.0)
--- NOTE | 2025-04-24 19:48 | DVHPN2 ---
Progress Note Date Seen: Apr 24, 2025 Resident Creating Document: HOLLY DEAN RESIDENT Medical Necessity Reason Pt with a Central, PICC or Fol: No Subjective Review of Systems Patient seen and examined on the bedside No extravasation of contrast seen on small bowel series continues to be on TPN extubated today NG tube with high suction Objective vital signs Vital Sign Date Time Temp Pulse Resp B/P (MAP) Pulse Ox O2 Delivery O2 Flow Rate FiO2 04/24/25 18:45 92 27 169/48 (88) 99 04/24/25 18:30 Hi-Flow Heated NC+ 50 75 75 04/24/25 16:00 99.6 99.6 Total Intake and Output 04/23/25 04/23/25 04/24/25 15:00 23:00 07:00 Intake Total 1167.8 ml 751.3 ml 683.8 ml Output Total 400 ml 1875 ml Balance 1167.8 ml 351.3 ml -1191.2 ml medications Current Medications Medications Dose Ordered Sig/Gregory Route Start Time Stop Time Status Last Admin Dose Admin Pantoprazole Sodium 40 mg DAILY IV 04/16/25 10:00 04/24/25 09:40 40 MG Piperacillin Sod/ Tazobactam Sod 100 ml @ 25 mls/hr Q8HR IV 04/16/25 22:00 04/24/25 14:31 25 MLS/HR Hydralazine HCl 10 mg Q6HP PRN IV 04/17/25 09:30 04/24/25 15:07 10 MG Amino Acids 0 ml @ 0 mls/hr PER PHARMACY IV 04/18/25 17:45 Fentanyl Citrate 250 ml @ 2.5 mls/hr Q24H IV 04/20/25 19:45 04/24/25 02:44 12.5 MLS/HR Propofol 100 ml @ 1.392 mls/ hr Q24H IV 04/20/25 22:15 04/22/25 00:02 6.96 MLS/HR Potassium Chloride/Dextrose/ Sod Cl 1,000 ml @ 75 mls/hr [id number] IV 04/21/25 08:30 04/24/25 16:23 75 MLS/HR Sodium Chloride 10 ml QSHIFT@ IV 04/21/25 22:00 04/24/25 09:40 10 ML Albuterol 2.5 mg Q6HR NEB 04/22/25 18:00 04/24/25 18:57 2.5 MG Ipratropium [place] 0.5 mg Q6HR NEB 04/22/25 18:00 04/24/25 18:57 0.5 MG Potassium Acetate 40 meq/Calcium Gluconate 4.65 meq/Magnesium Sulfate 12 meq/ Multivitamins 10 ml/Chromium/ Copper/Manganese/ Zinc 1 ml/Amino Acids/Dextrose 1,094 ml @ 45 mls/hr [id number] IV 04/23/25 22:00 04/24/25 21:59 04/23/25 22:15 45 MLS/HR Fat Emulsion Intravenous 50 ml/ Sodium Phosphate 30 meq/Potassium Acetate 40 meq/ Calcium Gluconate 4.65 meq/ Magnesium Sulfate 14 meq/ Multivitamins 10 ml/Chromium/ Copper/Manganese/ Zinc 1 ml/Amino Acids/Dextrose 1,102 ml @ 46 mls/hr [id number] IV 04/24/25 22:00 04/25/25 21:59 Furosemide 20 mg DAILY IV 04/25/25 10:00 Labetalol HCl 20 mg Q2HPRN PRN IV 04/24/25 15:30 04/24/25 16:12 20 MG Albuterol 2.5 mg Q3HPRN PRN NEB 04/24/25 16:15 Midazolam HCl 100 ml @ 1 mls/hr Q24H IV 04/24/25 18:00 Lorazepam 0.25 mg Q6HP PRN IV 04/24/25 18:30 UNV Examination Gen - no pallor, mild scleral icterus Skin - Patients skin is warm and dry. HEENT - normocephalic, atraumatic, dry mucous membranes. Neck - supple, no lymphadenopathy Pulmonary - B/L equal breath sounds cardiovascular - regular S1,S2 heard GI - soft abdomen status post exploratory laparotomy midline incision covered in a sterile dressing. Bowel sounds hypoactive. 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 Status post exploratory laparotomy Choledocholithiasis Plan Continue on TPN NPO NG to LIS CT abdomen pelvis done on 04/23 showed pneumoperitoneum, small bowel Gastrografin series to perform to look for any extravasation MRCP done on 04/16 showed CBD stone measuring up to 1 cm with a common bile duct dilated measuring up to 1.7 cm and dilation of intrahepatic biliary ducts Plan is with the patient recovers from the acute illness and exploratory laparotomy and once she is stable,we will repeat MRCP and if it still shows a CBD stone patient will need transferred to [facility] for ERCP PUD prophylaxis with Protonix Plan discussed with Dr. Cui Plan discussed with: Other (KIA Connors/Yue) Dietary Evaluation Review Recommendations by RD: PPN/TPN Comments: 1) Increase TPN to meet at least 75% estimated daily needs 2) Advance to cardiac diet when medically feasible 3) Follow-up with gastroenterology and neurology 4) Continue to monitor I&O, labs, and skin integrity Expected Outcomes/Goals: 1) nutrition support to meet at least 75% estimated daily needs 2) labs to improve 3) diet to advance 4) gradual wt gain 5) f/u in 2-3 days HOLLY DEAN RESIDENT Apr 24, 2025 19:48
--- NOTE | 2025-04-24 21:18 | DVHPN2 ---
Progress Note Date Seen: Apr 24, 2025 Medical Necessity Reason Pt with a Central, PICC or Fol: No Objective vital signs Vital Sign Date Time Temp Pulse Resp B/P (MAP) Pulse Ox O2 Delivery O2 Flow Rate FiO2 04/24/25 20:26 89 25 99 55.0 70 04/24/25 20:15 160/58 (92) 04/24/25 18:30 Hi-Flow Heated NC+ 04/24/25 16:00 99.6 99.6 Total Intake and Output 04/23/25 04/23/25 04/24/25 15:00 23:00 07:00 Intake Total 1167.8 ml 751.3 ml 683.8 ml Output Total 400 ml 1875 ml Balance 1167.8 ml 351.3 ml -1191.2 ml medications Current Medications Medications Dose Ordered Sig/Gregory Route Start Time Stop Time Status Last Admin Dose Admin Pantoprazole Sodium 40 mg DAILY IV 04/16/25 10:00 04/24/25 09:40 40 MG Piperacillin Sod/ Tazobactam Sod 100 ml @ 25 mls/hr Q8HR IV 04/16/25 22:00 04/24/25 14:31 25 MLS/HR Hydralazine HCl 10 mg Q6HP PRN IV 04/17/25 09:30 04/24/25 15:07 10 MG Amino Acids 0 ml @ 0 mls/hr PER PHARMACY IV 04/18/25 17:45 Fentanyl Citrate 250 ml @ 2.5 mls/hr Q24H IV 04/20/25 19:45 04/24/25 02:44 12.5 MLS/HR Propofol 100 ml @ 1.392 mls/ hr Q24H IV 04/20/25 22:15 04/22/25 00:02 6.96 MLS/HR Potassium Chloride/Dextrose/ Sod Cl 1,000 ml @ 75 mls/hr [id number] IV 04/21/25 08:30 04/24/25 16:23 75 MLS/HR Sodium Chloride 10 ml QSHIFT@10,22 IV 04/21/25 22:00 04/24/25 09:40 10 ML Albuterol 2.5 mg Q6HR NEB 04/22/25 18:00 04/24/25 18:57 2.5 MG Ipratropium [place] 0.5 mg Q6HR NEB 04/22/25 18:00 04/24/25 18:57 0.5 MG Potassium Acetate 40 meq/Calcium Gluconate 4.65 meq/Magnesium Sulfate 12 meq/ Multivitamins 10 ml/Chromium/ Copper/Manganese/ Zinc 1 ml/Amino Acids/Dextrose 1,094 ml @ 45 mls/hr [id number] IV 04/23/25 22:00 04/24/25 21:59 04/23/25 22:15 45 MLS/HR Fat Emulsion Intravenous 50 ml/ Sodium Phosphate 30 meq/Potassium Acetate 40 meq/ Calcium Gluconate 4.65 meq/ Magnesium Sulfate 14 meq/ Multivitamins 10 ml/Chromium/ Copper/Manganese/ Zinc 1 ml/Amino Acids/Dextrose 1,102 ml @ 46 mls/hr [id number] IV 04/24/25 22:00 04/25/25 21:59 Furosemide 20 mg DAILY IV 04/25/25 10:00 Labetalol HCl 20 mg Q2HPRN PRN IV 04/24/25 15:30 04/24/25 16:12 20 MG Albuterol 2.5 mg Q3HPRN PRN NEB 04/24/25 16:15 Midazolam HCl 100 ml @ 1 mls/hr Q24H IV 04/24/25 18:00 Lorazepam 0.25 mg Q6HP PRN IV 04/24/25 18:30 laboratory and microbiology Laboratory Tests 04/24/25 03:08 Test 04/24/25 03:08 Range/Units Serum Glucose 116 H 74-106 mg/dL Microbiology Date/Time Source Procedure Growth Status 04/22/25 15:28 Nose MRSA Screen - Final Complete 04/20/25 22:35 Sputum Endotracheal Wash Gram Stain - Final Resulted 04/20/25 22:35 Sputum Endotracheal Wash Respiratory Culture - Preliminary Resulted Problem List/Assessment/Plan Problem List/Assessment/Plan AFEBRILE VSS NO BM WOUND DRESSING DRY EXTUBATED AND AWAKE AND RESPONSIVE KUB NO CONTRAST LEAKAGE ILEUS POSSIBLE DUE TO RECENT E LAP WBC WNL CONTINUE SUPPORTIVE CARE FAMILY AWARE OF PT CONDITION NURSE AT BEDSIDE Plan discussed with: Other My Orders My Orders Orders - GLORIA MCNEAL MD Procedure Category Date Status Time Lorazepam 2mg/Ml Inj PHA 04/24/25 In Process (Ativan Inj) 18:30 Dietary Evaluation Review Recommendations by RD: PPN/TPN Comments: 1) Increase TPN to meet at least 75% estimated daily needs 2) Advance to cardiac diet when medically feasible 3) Follow-up with gastroenterology and neurology 4) Continue to monitor I&O, labs, and skin integrity Expected Outcomes/Goals: 1) nutrition support to meet at least 75% estimated daily needs 2) labs to improve 3) diet to advance 4) gradual wt gain 5) f/u in 2-3 days GLORIA MCNEAL MD Apr 24, 2025 21:18
[2025-04-24] MEDS: TPN PER PHARMACY IV NR (21:27)
--- NOTE | 2025-04-24 21:41 | DVH ---
EXAM: XY CHEST PORTABLE HISTORY: sob, ngt placement TECHNIQUE: 1 view of the chest COMPARISON: XY CHEST PORTABLE on DOS: 04/23/25 FINDINGS/IMPRESSION: LUNGS: Small left pleural effusion. Trace right-sided possible pneumothorax. Free air underneath the right hemidiaphragm. MEDIASTINUM: Central pulmonary vascular congestion. Normal cardiac size BONES: No acute osseous abnormality. OTHER: Right-sided line. Enteric tube in the proximal stomach. Significant gas distention. Cholecy stectomy clips
[2025-04-25] VITALS (95 sets, daily range): BP systolic 127–222; BP diastolic 30–122; PULSE 76–116; RESP 16–39; TEMP 97.3–99.2; O2SAT 74–100
[2025-04-25 01:37] LABS: Hematocrit 34.7 % (36.0-46.0); Hemoglobin 11.5 g/dL (12.2-16.2); Mean Corpuscular Hemoglobin 33.1 pg (28.0-32.0); Mean Corpuscular Volume 99.8 fL (80.0-100.0); Nucleated Red Blood Cells % 0.0 %
[2025-04-25 01:55] LABS: Alanine Aminotransferase 37 U/L (7-40); Albumin 3.4 g/dL (3.2-4.8); Alkaline Phosphatase 94 U/L (46-116); Anion Gap 9 (5-15); BUN/Creatinine Ratio 36.8 (10.0-20.0); Bilirubin, Total 0.8 mg/dL (0.2-1.0); Blood Urea Nitrogen 21 mg/dL (9-23); Calcium 8.6 mg/dL (8.7-10.4); Carbon Dioxide 28 mmol/L (20-31); Chloride 102 mmol/L (98-107); Glucose 122 mg/dL (74-106); Magnesium 1.9 mg/dL (1.6-2.6); Potassium 4.2 mmol/L (3.5-5.1); Sodium 139 mmol/L (136-145); Total Protein 6.2 g/dL (5.7-8.2)
[2025-04-25 02:12] LABS: Base Excess 1.8 mmol/L (-2.0-3.0)
[2025-04-25 08:01] LABS: Base Excess 1.4 mmol/L (-2.0-3.0)
--- NOTE | 2025-04-25 09:36 | DVHPN2 ---
Subjective Pt intubated, encephalopathic Reviewed: Care Plan, H&P, Labs, Medications Changes from previous H/P or p: No Changes General: Per HPI Objective Vitals Vital Signs Date Time Temp Pulse Resp B/P (MAP) Pulse Ox O2 Delivery O2 Flow Rate FiO2 04/25/25 07:00 86 32 158/61 (93) 99 04/25/25 06:45 70.0 100 04/25/25 06:00 Hi-Flow Heated NC+ 04/25/25 04:00 97.3 97.3 Intake/Output Intake and Output 04/25/25 07:00 Intake Total 2182.35 ml Output Total 6425 ml Balance -4242.65 ml Intake Oral 0 ml IV Total 2182.35 ml Output Urine Total 6300 ml Gastric Drainage Total 125 ml General Appearance: Alert, Cooperative, mild distress HEENT: PERRLA, Other Lungs: Normal air movement, Other (Rhonchi in bases. Hi flow) Cardiovascular: Regular rate, Normal S1, Normal S2 Abdomen: No tenderness, No hepatospenomegaly, Other (Absent bowel sounds) Genitourinary: No Apparent Abnormalities (Grewal catheter) Musculoskeletal: Normal sensory function, Normal motor function Extremities: No edema Neuro: Other Skin: Dry, Intact, Wounds, Other (Surgical wound D&I) Psych/Mental Status: Mood NL Medications Current Medications Medications Dose Ordered Sig/Gregory Route Start Time Stop Time Status Last Admin Dose Admin Pantoprazole Sodium 40 mg DAILY IV 04/16/25 10:00 04/24/25 09:40 40 MG Piperacillin Sod/ Tazobactam Sod 100 ml @ 25 mls/hr Q8HR IV 04/16/25 22:00 04/25/25 06:27 25 MLS/HR Hydralazine HCl 10 mg Q6HP PRN IV 04/17/25 09:30 04/24/25 15:07 10 MG Amino Acids 0 ml @ 0 mls/hr PER PHARMACY IV 04/18/25 17:45 Fentanyl Citrate 250 ml @ 2.5 mls/hr Q24H IV 04/20/25 19:45 04/24/25 02:44 12.5 MLS/HR Propofol 100 ml @ 1.392 mls/ hr Q24H IV 04/20/25 22:15 04/22/25 00:02 6.96 MLS/HR Potassium Chloride/Dextrose/ Sod Cl 1,000 ml @ 75 mls/hr [id number] IV 04/21/25 08:30 04/25/25 05:43 75 MLS/HR Sodium Chloride 10 ml QSHIFT@10,22 IV 04/21/25 22:00 04/24/25 21:25 10 ML Albuterol 2.5 mg Q6HR NEB 04/22/25 18:00 04/25/25 06:44 2.5 MG Ipratropium [place] 0.5 mg Q6HR NEB 04/22/25 18:00 04/25/25 06:44 0.5 MG Fat Emulsion Intravenous 50 ml/ Sodium Phosphate 30 meq/Potassium Acetate 40 meq/ Calcium Gluconate 4.65 meq/ Magnesium Sulfate 14 meq/ Multivitamins 10 ml/Chromium/ Copper/Manganese/ Zinc 1 ml/Amino Acids/Dextrose 1,102 ml @ 46 mls/hr [id number] IV 04/24/25 22:00 04/25/25 21:59 04/24/25 21:27 46 MLS/HR Furosemide 20 mg DAILY IV 04/25/25 10:00 Labetalol HCl 20 mg Q2HPRN PRN IV 04/24/25 15:30 04/24/25 22:33 20 MG Albuterol 2.5 mg Q3HPRN PRN NEB 04/24/25 16:15 Midazolam HCl 100 ml @ 1 mls/hr Q24H IV 04/24/25 18:00 Lorazepam 0.25 mg Q6HP PRN IV 04/24/25 18:30 Laboratory Results Laboratory Tests 04/25/25 00:40 Chemistry Test 04/25/25 00:40 Albumin 3.4 g/dL (3.2-4.8) Calcium Level 8.6 mg/dL (8.7-10.4) L Magnesium Level 1.9 mg/dL (1.6-2.6) Phosphorus Level 2.6 mg/dL (2.4-5.1) Total Protein 6.2 g/dL (5.7-8.2) LFT Test 04/25/25 00:40 Alanine Aminotransferase (ALT) 37 U/L (7-40) Alkaline Phosphatase 94 U/L (46-116) Aspartate Amino Transferase (AST) 35 U/L (13-40) Total Bilirubin 0.8 mg/dL (0.2-1.0) Urinalysis Test 04/15/25 15:45 Urine Color Light-orange (Yellow) Urine Clarity Ex.turbid (Clear) Urine pH 5.5 (5.0-9.0) Urine Specific [place] 1.028 (1.001-1.035) Urine Protein 1+ (Negative) H Urine Ketones Negative (Negative) Urine Blood 1+ /uL (Negative) H Urine Nitrite Negative (Negative) Urine Bilirubin Negative (Negative) Urine Urobilinogen 3 mg/dL (Negative) H Urine Leukocyte Esterase Negative /uL (Negative) Urine RBC 16 /hpf (0 - 4) Urine Microscopic WBC 1 /HPF (0-5) Urine Squamous Epithelial Cells Mod /hpf (<5) Urine Amorphous Crystals Few /hpf (None Seen) Urine Bacteria Few /hpf (None Seen) H Urine Hyaline Casts Few /lpf (0 - 2) Urine Mucus Few (None Seen) Urine Glucose Normal mg/dL (Normal) Blood Gas Results Test 04/24/25 11:24 04/24/25 19:07 04/24/25 23:03 04/25/25 07:54 Arterial Blood pH 7.419 (7.350-7.450) 7.466 (7.350-7.450) 7.458 (7.350-7.450) 7.475 (7.350-7.450) FiO2 % 30.0 80.0 100.0 100.0 Microbiology Microbiology Date/Time Source Procedure Growth Status 04/22/25 15:28 Nose MRSA Screen - Final Complete 04/20/25 22:35 Sputum Endotracheal Wash Gram Stain - Final Resulted 04/20/25 22:35 Sputum Endotracheal Wash Respiratory Culture - Preliminary Resulted Labs and/or images reviewed: Labs reviewed by me, Image(s) reviewed by me Assessment/Plan Assessment/Plan Impression: -choledocholithiasis -acute pancreatitis -small-bowel obstruction -dementia -cachexia -sepsis -COPD -GERD -Post op delirium -Accelerated HTN Plan: Events: Patient extubated. Transitioned to Hi flow yesterday. Decreased O2 requirements today. -surgical consultation -TPN, D5ns with kcl -NG to LIS -Continue Zosyn -PPI -Antihypertensives -pain management -Bronchodilators -Repeat labs, CXR, ABG in am. Total time spent with patient discussing and formulating plan of care: 35 minutes. This medical document was created using an electronic medical record system with [employer] dictation system. Although this document has been carefully reviewed, there may still be some phonetic and typographical errors. These areas are purely typographical due to imperfections of the software programs, and do not reflect any compromise in the patient's medical care. Plan discussed with: Patient, Other (RN) My Orders Orders - JAYDEN HILL NP Procedure Category Date Status Time Furosemide Injection PHA 04/25/25 In Process (Lasix Injection) 10:00 Extubate SAGE 04/24/25 In Process 11:34 Labetalol Hcl PHA 04/24/25 In Process (Labetalol Hcl) 15:30 Albuterol Medneb PHA 04/24/25 In Process (Ventolin Medneb) 16:15 Oxygen By High-Flow RT 04/24/25 Transmitted 11:50 Chest Portable XY 04/24/25 Resulted 18:29 Abg W/ Co-Ox RT 04/24/25 Logged 19:03 Abg W/ Co-Ox RT 04/25/25 Logged 05:37 Chest Xray 1 View XY 04/25/25 Logged 08:33 Date of Service: Apr 25, 2025 Billing Provider: JAYDEN HILL NP Common Visit Codes: [id number] CARE 30-74 MIN JAYDEN HILL NP Apr 25, 2025 09:36
[2025-04-25] MEDS: FUROSEMIDE 20 MG/2 ML VIAL IV SCH (10:38)
--- NOTE | 2025-04-25 11:33 | DVH ---
CHEST RADIOGRAPH Indication: pna Technique: Single frontal view of the chest was obtained Comparison: XY CHEST PORTABLE on DOS: 04/24/25, XY CHEST PORTABLE on DOS: 04/23/25, XY CHEST PORTABLE on DOS: 04/23/25, XY CHEST PORTABLE on DOS: 04/22/25, XY CHEST XRAY 1 VIEW on DOS: 04/21/25 FINDINGS: Lines and Tubes: NG tube in stomach Lungs: Complete white out left lung Pleura: Complete white out left lung . Trace right-sided possible pneumothorax Cardiomediastinal contours: Unremarkable Bones: No acute osseous abnormality. IMPRESSION: Complete white out of the left lung.
[2025-04-25] MEDS: IPRATROPIUM BROM 0.5 MG/2.5ML INH SOL NEB SCH ×2 (13:26→18:57)
[2025-04-25] MEDS: ACETYLCYSTEINE 10 %(100MG/ML) SOL 4ML NEB SCH (13:27)
[2025-04-25] MEDS: ALBUTEROL SULF 2.5 MG/0.5ML(0.5%) NEB SOLN NEB SCH (13:27)
--- NOTE | 2025-04-25 14:32 | DVHPN2 ---
Progress Note Date Seen: Apr 25, 2025 Medical Necessity Reason Pt with a Central, PICC or Fol: No Objective vital signs Vital Sign Date Time Temp Pulse Resp B/P (MAP) Pulse Ox O2 Delivery O2 Flow Rate FiO2 04/25/25 14:09 99 21 96 55.0 85 04/25/25 13:45 151/62 (91) 04/25/25 12:00 Hi-Flow Heated NC+ 04/25/25 08:16 98.6 98.6 Total Intake and Output 04/24/25 04/24/25 04/25/25 15:00 23:00 07:00 Intake Total 468.35 ml 867 ml 968 ml Output Total 4150 ml 2275 ml Balance 468.35 ml -3283 ml -1307 ml medications Current Medications Medications Dose Ordered Sig/Gregory Route Start Time Stop Time Status Last Admin Dose Admin Pantoprazole Sodium 40 mg DAILY IV 04/16/25 10:00 04/25/25 10:25 40 MG Piperacillin Sod/ Tazobactam Sod 100 ml @ 25 mls/hr Q8HR IV 04/16/25 22:00 04/25/25 06:27 25 MLS/HR Hydralazine HCl 10 mg Q6HP PRN IV 04/17/25 09:30 04/24/25 15:07 10 MG Amino Acids 0 ml @ 0 mls/hr PER PHARMACY IV 04/18/25 17:45 Potassium Chloride/Dextrose/ Sod Cl 1,000 ml @ 75 mls/hr [id number] IV 04/21/25 08:30 04/25/25 05:43 75 MLS/HR Sodium Chloride 10 ml QSHIFT@10,22 IV 04/21/25 22:00 04/25/25 10:38 10 ML Fat Emulsion Intravenous 50 ml/ Sodium Phosphate 30 meq/Potassium Acetate 40 meq/ Calcium Gluconate 4.65 meq/ Magnesium Sulfate 14 meq/ Multivitamins 10 ml/Chromium/ Copper/Manganese/ Zinc 1 ml/Amino Acids/Dextrose 1,102 ml @ 46 mls/hr [id number] IV 04/24/25 22:00 04/25/25 21:59 04/24/25 21:27 46 MLS/HR Furosemide 20 mg DAILY IV 04/25/25 10:00 04/25/25 10:38 20 MG Labetalol HCl 20 mg Q2HPRN PRN IV 04/24/25 15:30 04/24/25 22:33 20 MG Albuterol 2.5 mg Q3HPRN PRN NEB 04/24/25 16:15 Lorazepam 0.25 mg Q6HP PRN IV 04/24/25 18:30 Nicardipine/ Sodium Chloride 200 ml @ 50 mls/hr Q4H IV 04/25/25 09:45 Fat Emulsion Intravenous 50 ml/ Sodium Chloride 10 meq/Sodium Phosphate 40 meq/ Potassium Acetate 40 meq/Calcium Gluconate 4.65 meq/Magnesium Sulfate 14 meq/ Multivitamins 10 ml/Amino Acids/ Dextrose/Purified Water 1,206 ml @ 50 mls/hr Q24H8M IV 04/25/25 22:00 04/26/25 21:59 Albuterol 2.5 mg Q4HR NEB 04/25/25 14:00 04/25/25 13:27 2.5 MG Ipratropium [place] 0.5 mg Q6HR NEB 04/25/25 14:00 04/25/25 13:26 0.5 MG Acetylcysteine 100 mg Q4HR NEB 04/25/25 14:00 04/25/25 13:27 100 MG laboratory and microbiology Laboratory Tests 04/25/25 00:40 Test 04/25/25 00:40 Range/Units Serum Glucose 122 H 74-106 mg/dL Microbiology Date/Time Source Procedure Growth Status 04/22/25 15:28 Nose MRSA Screen - Final Complete 04/20/25 22:35 Sputum Endotracheal Wash Gram Stain - Final Resulted 04/20/25 22:35 Sputum Endotracheal Wash Respiratory Culture - Preliminary Resulted Problem List/Assessment/Plan Problem List/Assessment/Plan AFEBRILE VSS NO BM WOUND DRESSING DRY EXTUBATED AND AWAKE AND RESPONSIVE KUB NO CONTRAST LEAKAGE ILEUS POSSIBLE DUE TO RECENT E LAP WBC ELEVATED CXR LEFT LUNG WHITE OUT PULM TO EVAL RE BRONCHOSCOPY CONTINUE SUPPORTIVE CARE FAMILY AWARE OF PT CONDITION NURSE AT BEDSIDE Plan discussed with: Other My Orders My Orders Orders - GLORIA MCNEAL MD Procedure Category Date Status Time Lorazepam 2mg/Ml Inj PHA 04/24/25 In Process (Ativan Inj) 18:30 Abg W/ Co-Ox RT 04/24/25 Logged 22:58 Dietary Evaluation Review Recommendations by RD: PPN/TPN Comments: 1) Increase TPN to meet at least 75% estimated daily needs 2) Advance to cardiac diet when medically feasible 3) Follow-up with gastroenterology and neurology 4) Continue to monitor I&O, labs, and skin integrity Expected Outcomes/Goals: 1) nutrition support to meet at least 75% estimated daily needs 2) labs to improve 3) diet to advance 4) gradual wt gain 5) f/u in 2-3 days GLORIA MCNEAL MD Apr 25, 2025 14:32
--- NOTE | 2025-04-25 16:51 | DVHPN2 ---
Progress Note Date Seen: Apr 25, 2025 Resident Creating Document: JHJorge AJHOLLY Mccann RESIDENT Medical Necessity Reason Pt with a Central, PICC or Fol: No Subjective Review of Systems Patient seen and examined at the bedside Extubated yesterday currently on high-flow nasal cannula Chest x-ray shows left-sided whiteout possibly from mucus plug, pulmonology on board Large amount of gastric contents suctioned from the NG tube about 600 mL during the day shift H&H stable On TPN Objective vital signs Vital Sign Date Time Temp Pulse Resp B/P (MAP) Pulse Ox O2 Delivery O2 Flow Rate FiO2 04/25/25 14:45 99.2 105 32 165/41 (82) 98 99.2 04/25/25 14:09 55.0 85 04/25/25 14:00 Hi-Flow Heated NC+ Total Intake and Output 04/24/25 04/24/25 04/25/25 15:00 23:00 07:00 Intake Total 468.35 ml 867 ml 968 ml Output Total 4150 ml 2275 ml Balance 468.35 ml -3283 ml -1307 ml medications Current Medications Medications Dose Ordered Sig/Gregory Route Start Time Stop Time Status Last Admin Dose Admin Pantoprazole Sodium 40 mg DAILY IV 04/16/25 10:00 04/25/25 10:25 40 MG Piperacillin Sod/ Tazobactam Sod 100 ml @ 25 mls/hr Q8HR IV 04/16/25 22:00 04/25/25 14:42 25 MLS/HR Hydralazine HCl 10 mg Q6HP PRN IV 04/17/25 09:30 04/24/25 15:07 10 MG Amino Acids 0 ml @ 0 mls/hr PER PHARMACY IV 04/18/25 17:45 Potassium Chloride/Dextrose/ Sod Cl 1,000 ml @ 75 mls/hr [id number] IV 04/21/25 08:30 04/25/25 05:43 75 MLS/HR Sodium Chloride 10 ml QSHIFT@10,22 IV 04/21/25 22:00 04/25/25 10:38 10 ML Fat Emulsion Intravenous 50 ml/ Sodium Phosphate 30 meq/Potassium Acetate 40 meq/ Calcium Gluconate 4.65 meq/ Magnesium Sulfate 14 meq/ Multivitamins 10 ml/Chromium/ Copper/Manganese/ Zinc 1 ml/Amino Acids/Dextrose 1,102 ml @ 46 mls/hr [id number] IV 04/24/25 22:00 04/25/25 21:59 04/24/25 21:27 46 MLS/HR Furosemide 20 mg DAILY IV 04/25/25 10:00 04/25/25 10:38 20 MG Labetalol HCl 20 mg Q2HPRN PRN IV 04/24/25 15:30 04/24/25 22:33 20 MG Albuterol 2.5 mg Q3HPRN PRN NEB 04/24/25 16:15 Lorazepam 0.25 mg Q6HP PRN IV 04/24/25 18:30 Nicardipine/ Sodium Chloride 200 ml @ 50 mls/hr Q4H IV 04/25/25 09:45 Fat Emulsion Intravenous 50 ml/ Sodium Chloride 10 meq/Sodium Phosphate 40 meq/ Potassium Acetate 40 meq/Calcium Gluconate 4.65 meq/Magnesium Sulfate 14 meq/ Multivitamins 10 ml/Amino Acids/ Dextrose/Purified Water 1,206 ml @ 50 mls/hr Q24H8M IV 04/25/25 22:00 04/26/25 21:59 Albuterol 2.5 mg Q4HR NEB 04/25/25 14:00 04/25/25 13:27 2.5 MG Ipratropium [place] 0.5 mg Q6HR NEB 04/25/25 14:00 04/25/25 13:26 0.5 MG Acetylcysteine 100 mg Q4HR NEB 04/25/25 14:00 04/25/25 13:27 100 MG Examination Gen - no pallor, mild scleral icterus Skin - Patients skin is warm and dry. HEENT - normocephalic, atraumatic, dry mucous membranes. Neck - supple, no lymphadenopathy Pulmonary - B/L equal breath sounds cardiovascular - regular S1,S2 heard GI - soft abdomen status post exploratory laparotomy midline incision covered in a sterile dressing. Bowel sounds hypoactive. 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 for ERCP Advanced diet as per primary surgeon PUD prophylaxis with Protonix Plan discussed with Dr. Cui Plan discussed with: Patient, Other (KIA Turner) Dietary Evaluation Review Recommendations by RD: PPN/TPN Comments: 1) Increase TPN to meet at least 75% estimated daily needs 2) Advance to cardiac diet when medically feasible 3) Follow-up with gastroenterology and neurology 4) Continue to monitor I&O, labs, and skin integrity Expected Outcomes/Goals: 1) nutrition support to meet at least 75% estimated daily needs 2) labs to improve 3) diet to advance 4) gradual wt gain 5) f/u in 2-3 days HOLLY DEAN RESIDENT Apr 25, 2025 16:50
--- NOTE | 2025-04-25 17:06 | DVH ---
CHEST RADIOGRAPH Indication: left lung mucous plugging Technique: Single frontal view of the chest was obtained COMPARISON: XY CHEST XRAY 1 VIEW on DOS: 04/25/25, XY CHEST PORTABLE on DOS: 04/24/25, XY CHEST GRACIE BLE on DOS: 04/23/25, XY CHEST PORTABLE on DOS: 04/23/25, XY CHEST PORTABLE on DOS: 04/22/25 FINDINGS: Lines and Tubes: Enteric catheter in satisfactory position. Lungs: Persistent opacification of the left hemithorax. Right lower lobe airspace disease. Pleura: No effusion.No pneumothorax. Cardiomediastinal contours: Decreased conspicuity of pneumoperitoneum. Bones: Unremarkable IMPRESSION: No significant interval change.
--- NOTE | 2025-04-25 22:53 | DVHINCON2 ---
Date of service: Apr 25, 2025 Referring Physician JESÚS Ford Reason for Consultation Acute hypoxic respiratory failure and pneumonia. History of Present Illness An 89-year-old woman with PMHx of COPD, asthma, dementia, GERD and anxiety who presented to ED on 04/15/25 for evaluation of abdominal pain. Patient with dementia, noted by family members to be complaining of abdominal pain for the past two days. No nausea or vomiting. Family also reported worsening confusion from baseline. No hematemesis or melena. No bleeding per rectum. Patient was admitted for further care. Pulmonary consultation is requested for evaluation and management of acute hypoxic respiratory failure and pneumonia. Review of Systems: 14-point review of systems negative unless otherwise noted above. Past Medical History COPD, asthma, dementia, GERD and anxiety. Past Surgical History Hysterectomy, other abdominal surgery (details unclear). Medications: Reviewed. Allergies: No known drug allergies. Family History: No family history of premature CAD. No family history of lung disorders. Social History: Former smoker. No alcohol or illicit drug use. Family History: FHx: stroke G8 FATHER Family history: Asthma G8 FATHER G8 SISTER Malignant neoplasm of breast G8 SISTER Allergies: Coded Allergies: NO KNOWN ALLERGIES (Unverified , 09/09/16) Home Meds Active Scripts Fluticasone Propionate (FLOVENT HFA 110Mcg INH) 110 Mcg Ih, 2 PUFF INH BID, #1 INHALER 0 Refills Prov:DEBBY HANLEY MD 09/13/16 Reported Medications Oxycodone W/ Acetaminophen (Percocet 5/325MG) 1 Tab Tb, 1 TAB PO QIDPRN, #90 TAB 04/17/25 Albuterol Sulfate (VENTOLIN MDI) 90 Mcg Ih, 90 MCG IN TID, INH 04/17/25 Cholecalciferol (Vitamin D) 5,000 Unit Cap, 5000 UNIT PO DAILY, CAP 04/17/25 Omeprazole (Gnp Omeprazole) 20 Mg Tab, 1 TAB PO DAILY, #90 TAB 1 Refill 07/21/16 Current Medications Current Medications Medications (Trade) Dose Ordered Sig/Gregory Route PRN Reason Start Time Stop Time Status Last Admin Furosemide (Lasix Injection) 20 mg DAILY IV 04/25/25 10:00 04/25/25 10:38 Nicardipine/ Sodium Chloride 200 ml @ 50 mls/hr Q4H IV 04/25/25 09:45 Fat Emulsion Intravenous 50 ml/ Sodium Chloride 10 meq/Sodium Phosphate 40 meq/ Potassium Acetate 40 meq/Calcium Gluconate 4.65 meq/Magnesium Sulfate 14 meq/ Multivitamins 10 ml/Amino Acids/ Dextrose/Purified Water 1,206 ml @ 50 mls/hr Q24H8M IV 04/25/25 22:00 04/26/25 21:59 04/25/25 21:20 Albuterol (Ventolin Medneb) 2.5 mg Q4HR NEB 04/25/25 14:00 04/25/25 18:57 Ipratropium [place] (Atrovent Medneb) 0.5 mg Q6HR NEB 04/25/25 14:00 04/25/25 17:31 DC 04/25/25 13:26 Acetylcysteine (Mucomyst Inahalation 10%) 100 mg Q4HR NEB 04/25/25 14:00 04/25/25 18:57 Ipratropium [place] (Atrovent Medneb) 0.5 mg Q4HR NEB 04/25/25 18:00 04/25/25 18:57 Vital Signs Vital Signs Date Time Temp Pulse Resp B/P (MAP) Pulse Ox O2 Delivery O2 Flow Rate FiO2 04/25/25 20:00 92 04/25/25 20:00 36 98 Hi-Flow Heated NC+ 55 85 85 04/25/25 19:00 161/58 (92) 04/25/25 18:00 98.7 98.7 Physical Exam Gen.: Patient lying in bed in no apparent distress. On supplemental oxygen. Head: Normocephalic, atraumatic. Eyes: EOMI/PERRLA. Ears: Normal hearing. Normal anatomy. Neck/trachea: Trachea midline, supple. Nose: Normal external anatomy. Mouth: Moist mucous membranes. Chest: Decreased air entry bilaterally. No wheezing or rhonchi. Cardiovascular: Positive S1, positive S2. Regular rate and rhythm. Abdomen: Positive bowel sounds in all 4 quadrants. Soft, non-tender, non- distended. : Deferred. Rectal: Deferred. Skin: Warm, dry. Intact. Extremities: 2+ radial pulses bilaterally. No lower extremity edema. Neuro: Awake, alert, oriented x3. No gross motor or sensory deficits. Cranial nerves II through XII intact. Gait not assessed. Labs/Diagnostic Data Labs Test 04/25/25 07:54 04/25/25 00:40 04/24/25 23:03 04/24/25 11:24 Range/Units Blood Gas Specimen Type Arterial Blood Gas Sample Site Right brachial Blood Gas Patient Temperature 37.0 Arterial Blood Date Drawn [id number] Arterial Blood pH 7.475 H 7.350-7.450 Arterial Blood Partial Pressure CO2 34.2 32.0-45.0 mmHg Arterial Blood Partial Pressure O2 141.3 H 83.0-108.0 mmHg Arterial Blood HCO3 24.6 21.0-28.0 mmol/L Arterial Blood Oxygen Saturation 98.5 H 94.0-98.0 % Arterial Blood Base Excess 1.4 -2.0-3.0 mmol/L Arterial Blood Oxyhemoglobin 97.9 94.0-98.0 % Arterial Blood Carboxyhemoglobin 0.3 L 0.5-1.5 % Arterial Blood Methemoglobin 0.3 0.0-1.5 % Yaya Test N/a Blood Gas Total Hemoglobin 11.80 L 12.0-16.0 g/dL Blood Gas Modality High flow FiO2 % 100.0 White Blood Count 11.4 #H 4.4-10.8 10^3/uL Red Blood Count 3.48 L 4.0-5.20 10^6/uL Hemoglobin 11.5 #L 12.2-16.2 g/dL Hematocrit 34.7 #L 36.0-46.0 % Mean Corpuscular Volume 99.8 80.0-100.0 fL Mean Corpuscular Hemoglobin 33.1 H 28.0-32.0 pg Mean Corpuscular Hemoglobin Concent 33.1 32.0-36.0 g/dL Red Cell Distribution Width 20.2 H 11.8-14.3 % Platelet Count 326 140-450 10^3/uL Mean Platelet Volume 8.4 6.9-10.8 fL Neutrophils (%) (Auto) 85.8 H 37.0-80.0 % Lymphocytes (%) (Auto) 6.8 L 10.0-50.0 % Monocytes (%) (Auto) 6.5 0.0-12.0 % Eosinophils (%) (Auto) 0.4 0.0-7.0 % Basophils (%) (Auto) 0.5 0.0-2.0 % Neutrophils # (Auto) 9.8 H 1.6-8.6 10 ^3/uL Lymphocytes # (Auto) 0.8 0.4-5.4 10 ^3/uL Monocytes # (Auto) 0.7 0-1.3 10 ^3/uL Eosinophils # (Auto) 0.1 0-0.8 10 ^3/uL Basophils # (Auto) 0.1 0-0.2 10 ^3/uL Nucleated Red Blood Cells 0.0 % Sodium Level 139 136-145 mmol/L Potassium Level 4.2 3.5-5.1 mmol/L Chloride Level 102 98-107 mmol/L Carbon Dioxide Level 28 20-31 mmol/L Anion Gap 9 5-15 Blood Urea Nitrogen 21 9-23 mg/dL Creatinine 0.57 # 0.550-1.02 mg/dL Glomerular Filtration Rate Calc 87 >90 mL/min BUN/Creatinine Ratio 36.8 H 10.0-20.0 Serum Glucose 122 H 74-106 mg/dL Calcium Level 8.6 L 8.7-10.4 mg/dL Phosphorus Level 2.6 2.4-5.1 mg/dL Magnesium Level 1.9 1.6-2.6 mg/dL Total Bilirubin 0.8 0.2-1.0 mg/dL Aspartate Amino Transferase (AST) 35 13-40 U/L Alanine Aminotransferase (ALT) 37 7-40 U/L Alkaline Phosphatase 94 46-116 U/L Total Protein 6.2 5.7-8.2 g/dL Albumin 3.4 3.2-4.8 g/dL Blood Gas Liter Flow 70.00 Blood Gas Spontaneous Rate 27 Blood Gas Pressure Support 8 Blood Gas PEEP or CPAP 5.0 Test 04/24/25 07:18 04/24/25 03:08 04/22/25 03:15 04/21/25 03:50 Range/Units Blood Gas Set Respiration Rate 16.0 Blood Gas Tidal Volume 450.0 Platelet Estimate Adequate Anisocytosis (manual) Slight Macrocytosis Slight Differential Total Cells Counted 100.0 100 Neutrophils % (Manual) 78 37.0-80.0 Band Neutrophils % (Manual) 2 Lymphocytes % (Manual) 13 10.0-50.0 Monocytes % (Manual) 7 0-12 Eosinophils % (Manual) 0 0-7 Basophils % (Manual) 0 0.0-2.0 Metamyelocytes % (manual) 0 Myelocytes % (Manual) 0 Promyelocytes % (Manual) 0 Blast Cells % (Manual) 0 Reactive Lymphocytes 0 Prothrombin Time 11.4 9.3-11.8 sec Prothrombin Time INR 1.08 0.9-1.15 Activated Partial Thromboplast Time 25.7 24.5-34.5 SEC Test 04/20/25 05:31 04/19/25 16:25 04/19/25 04:26 04/17/25 06:08 Range/Units POC Glucose 131 H 70-106 mg/dl Vitamin B12 Level 454 211-911 pg/mL Triglycerides Level 101 < 150 mg/dL Poikilocytosis (manual) Slight Target Cells Few Ovalocytes Few Schistocytes Few Lipase 30 12-53 U/L Test 04/16/25 11:27 04/15/25 15:45 Range/Units Lactic Acid Level 1.4 0.4-2.0 mmol/L Urine Color Light-orange Yellow Urine Clarity Ex.turbid Clear Urine pH 5.5 5.0-9.0 Urine Specific [place] 1.028 1.001-1.035 Urine Protein 1+ H Negative Urine Ketones Negative Negative Urine Blood 1+ H Negative /uL Urine Nitrite Negative Negative Urine Bilirubin Negative Negative Urine Urobilinogen 3 H Negative mg/dL Urine Leukocyte Esterase Negative Negative /uL Urine RBC 16 0 - 4 /hpf Urine Microscopic WBC 1 0-5 /HPF Urine Squamous Epithelial Cells Mod <5 /hpf Urine Amorphous Crystals Few None Seen /hpf Urine Bacteria Few H None Seen /hpf Urine Hyaline Casts Few 0 - 2 /lpf Urine Mucus Few None Seen Urine Glucose Normal Normal mg/dL Microbiology Date/Time Source Procedure Growth Status 04/22/25 15:28 Nose MRSA Screen - Final Complete 04/20/25 22:35 Sputum Endotracheal Wash Gram Stain - Final Resulted 04/20/25 22:35 Sputum Endotracheal Wash Respiratory Culture - Preliminary Resulted Assessment Impression: Acute hypoxic respiratory failure Dependence on supplemental oxygen Atelectasis Lung collapse Aspiration Pneumonia likely gram negative Hx of nicotine dependence Cachexia, BMI 17.4 Plan: Supplemental oxygen Titrate to keep O2 sats above 92%. On HFO2 at FiO2 80% Taper O2 as tolerated. Plan for bronchoscopy with bronchoalveolar lavage tomorrow Obtain informed consent from NOK. Continue bronchodilators. Continue antibiotics Incentive spirometry Head of bed elevation Aspiration precautions NGT in place Monitor renal function. Monitor electrolytes. Supplement as necessary. Monitor ins and outs. DVT prophylaxis. Prognosis: Poor given patient's multiple co-morbidities. Condition: Critical Rest of plan per hospitalist and other consultants. A total of 35 minutes of critical care time was spent reviewing the patient record, examining the patient, making a diagnostic and therapeutic plan, discussing this plan with the medical personnel, following up on diagnostic studies and following the patient for clinical stability excluding any and all procedures. At least 50% of this time was spent in direct, [id number] contact. Thank you, JESÚS Ford, for allowing me to participate in this patient's care. Further recommendations will depend on the patient's clinical course. Please do not hesitate to contact me if you have any questions or concerns. This medical document was created using an electronic medical record system with [employer] dictation system. Although these documentations are being carefully reviewed, there may still be some phonetic and typographical changes. The errors are purely typographical, due to imperfection on the software program, and do not reflect any compromise in the patient's medical care. Plan discussed with: Other (KIA Mace) Visit Coding Pulmonary Billing Provider: KARENA WESTFALL MD Date of Service if different f: Apr 25, 2025 Common Visit Codes: [id number] INP/OBS CARE (HIGH), [id number] CARE 30- 74 MIN KARENA WESTFALL MD Apr 25, 2025 22:53
[2025-04-26] VITALS (103 sets, daily range): BP systolic 95–184; BP diastolic 41–104; PULSE 80–118; RESP 14–40; TEMP 97.2–99.3; O2SAT 87–100
[2025-04-26 02:56] LABS: Hematocrit 34.2 % (36.0-46.0); Hemoglobin 11.4 g/dL (12.2-16.2); Mean Corpuscular Hemoglobin 33.1 pg (28.0-32.0); Mean Corpuscular Volume 99.4 fL (80.0-100.0); Nucleated Red Blood Cells % 0.1 %
[2025-04-26 03:29] LABS: Albumin 3.5 g/dL (3.2-4.8); Alkaline Phosphatase 96 U/L (46-116); Anion Gap 9 (5-15); BUN/Creatinine Ratio 40.4 (10.0-20.0); Bilirubin, Total 0.7 mg/dL (0.2-1.0); Blood Urea Nitrogen 21 mg/dL (9-23); Carbon Dioxide 30 mmol/L (20-31); Chloride 105 mmol/L (98-107); Magnesium 1.9 mg/dL (1.6-2.6); Potassium 3.7 mmol/L (3.5-5.1); Sodium 144 mmol/L (136-145); Total Protein 6.3 g/dL (5.7-8.2); Triglycerides 79 mg/dL (< 150)
[2025-04-26 03:40] LABS: Alanine Aminotransferase 46 U/L (7-40); Calcium 8.0 mg/dL (8.7-10.4); Glucose 134 mg/dL (74-106)
[2025-04-26] MEDS: D5W/SOD CHL 0.45%/KCL 40MEQ 1,000 ML IV SCH (07:00)
--- NOTE | 2025-04-26 07:03 | DVHPN2 ---
Subjective Patient denies any symptoms Reviewed: Care Plan, H&P, Labs, Medications Changes from previous H/P or p: No Changes General: Per HPI Objective Vitals Vital Signs Date Time Temp Pulse Resp B/P (MAP) Pulse Ox O2 Delivery O2 Flow Rate FiO2 04/26/25 06:45 81 23 164/59 (94) 96 04/26/25 06:34 40.0 55 04/26/25 06:00 Hi-Flow Heated NC+ 04/26/25 04:00 98.6 98.6 Intake/Output Intake and Output 04/26/25 07:00 Intake Total 2919 ml Output Total 4675 ml Balance -1756 ml IV Total 2919 ml Output Urine Total 3225 ml Gastric Drainage Total 1450 ml General Appearance: Alert, Cooperative, mild distress HEENT: PERRLA, Other Lungs: Normal air movement, Other (Rhonchi in bases. Hi flow) Cardiovascular: Regular rate, Normal S1, Normal S2 Abdomen: No tenderness, No hepatospenomegaly, Other (Absent bowel sounds) Genitourinary: No Apparent Abnormalities (Grewal catheter) Musculoskeletal: Normal sensory function, Normal motor function Extremities: No edema Neuro: Other Skin: Dry, Intact, Wounds, Other (Surgical wound D&I) Psych/Mental Status: Mood NL Medications Current Medications Medications Dose Ordered Sig/Gregory Route Start Time Stop Time Status Last Admin Dose Admin Pantoprazole Sodium 40 mg DAILY IV 04/16/25 10:00 04/25/25 10:25 40 MG Piperacillin Sod/ Tazobactam Sod 100 ml @ 25 mls/hr Q8HR IV 04/16/25 22:00 04/26/25 05:12 25 MLS/HR Hydralazine HCl 10 mg Q6HP PRN IV 04/17/25 09:30 04/24/25 15:07 10 MG Amino Acids 0 ml @ 0 mls/hr PER PHARMACY IV 04/18/25 17:45 Potassium Chloride/Dextrose/ Sod Cl 1,000 ml @ 75 mls/hr [id number] IV 04/21/25 08:30 04/25/25 19:10 75 MLS/HR Sodium Chloride 10 ml QSHIFT@10,22 IV 04/21/25 22:00 04/25/25 21:21 10 ML Furosemide 20 mg DAILY IV 04/25/25 10:00 04/25/25 10:38 20 MG Labetalol HCl 20 mg Q2HPRN PRN IV 04/24/25 15:30 04/25/25 23:05 20 MG Albuterol 2.5 mg Q3HPRN PRN NEB 04/24/25 16:15 Lorazepam 0.25 mg Q6HP PRN IV 04/24/25 18:30 Nicardipine/ Sodium Chloride 200 ml @ 50 mls/hr Q4H IV 04/25/25 09:45 Fat Emulsion Intravenous 50 ml/ Sodium Chloride 10 meq/Sodium Phosphate 40 meq/ Potassium Acetate 40 meq/Calcium Gluconate 4.65 meq/Magnesium Sulfate 14 meq/ Multivitamins 10 ml/Amino Acids/ Dextrose/Purified Water 1,206 ml @ 50 mls/hr Q24H8M IV 04/25/25 22:00 04/26/25 21:59 04/25/25 21:20 50 MLS/HR Albuterol 2.5 mg Q4HR NEB 04/25/25 14:00 04/26/25 06:33 2.5 MG Acetylcysteine 100 mg Q4HR NEB 04/25/25 14:00 04/26/25 06:34 100 MG Ipratropium [place] 0.5 mg Q4HR NEB 04/25/25 18:00 04/26/25 06:33 0.5 MG Laboratory Results Laboratory Tests 04/26/25 02:30 Chemistry Test 04/26/25 02:30 Albumin 3.5 g/dL (3.2-4.8) Calcium Level 8.0 mg/dL (8.7-10.4) L Magnesium Level 1.9 mg/dL (1.6-2.6) Phosphorus Level 2.4 mg/dL (2.4-5.1) Total Protein 6.3 g/dL (5.7-8.2) Lipid panel Test 04/26/25 02:30 Triglycerides Level 79 mg/dL (< 150) LFT Test 04/26/25 02:30 Alanine Aminotransferase (ALT) 46 U/L (7-40) H Alkaline Phosphatase 96 U/L (46-116) Aspartate Amino Transferase (AST) 41 U/L (13-40) H Total Bilirubin 0.7 mg/dL (0.2-1.0) Urinalysis Test 04/15/25 15:45 Urine Color Light-orange (Yellow) Urine Clarity Ex.turbid (Clear) Urine pH 5.5 (5.0-9.0) Urine Specific [place] 1.028 (1.001-1.035) Urine Protein 1+ (Negative) H Urine Ketones Negative (Negative) Urine Blood 1+ /uL (Negative) H Urine Nitrite Negative (Negative) Urine Bilirubin Negative (Negative) Urine Urobilinogen 3 mg/dL (Negative) H Urine Leukocyte Esterase Negative /uL (Negative) Urine RBC 16 /hpf (0 - 4) Urine Microscopic WBC 1 /HPF (0-5) Urine Squamous Epithelial Cells Mod /hpf (<5) Urine Amorphous Crystals Few /hpf (None Seen) Urine Bacteria Few /hpf (None Seen) H Urine Hyaline Casts Few /lpf (0 - 2) Urine Mucus Few (None Seen) Urine Glucose Normal mg/dL (Normal) Blood Gas Results Test 04/25/25 07:54 Arterial Blood pH 7.475 (7.350-7.450) FiO2 % 100.0 Microbiology Microbiology Date/Time Source Procedure Growth Status 04/22/25 15:28 Nose MRSA Screen - Final Complete 04/20/25 22:35 Sputum Endotracheal Wash Gram Stain - Final Resulted 04/20/25 22:35 Sputum Endotracheal Wash Respiratory Culture - Preliminary Resulted Labs and/or images reviewed: Labs reviewed by me, Image(s) reviewed by me Assessment/Plan Assessment/Plan Impression: -choledocholithiasis -acute pancreatitis -small-bowel obstruction -dementia -cachexia -sepsis -COPD -GERD -Post op delirium -Accelerated HTN -A. fib Plan: Events: Remains on Hi flow- 45% FIO2 -TPN, Decrease IVG -Pulmonology consult- Bronch today -NG to LIS -Continue Zosyn -PPI -Antihypertensives -pain management -Bronchodilators, Mucomyst, PDP, Nasal suction -Repeat labs, CXR, ABG in am. Total time spent with patient discussing and formulating plan of care: 35 minutes. This medical document was created using an electronic medical record system with [employer] system. Although this document has been carefully reviewed, there may still be some phonetic and typographical errors. These areas are purely typographical due to imperfections of the software programs, and do not reflect any compromise in the patient's medical care. Plan discussed with: Patient, Other (RN) My Orders Orders - JAYDEN HILL [employer]CR[employer]TER Procedure Category Date Status Time Chest Xray 1 View XY 04/25/25 Resulted 08:33 Nicardipine PHA 04/25/25 In Process 20mg/200ml (Cardene 09:45 Albuterol Medneb PHA 04/25/25 In Process (Ventolin Medneb) 14:00 Acetylcysteine PHA 04/25/25 In Process Inhalation 10% 14:00 Chest Percussion Tx RT 04/25/25 Logged Initi 11:18 *Consult CONS 04/25/25 Transmitted 11:18 Chest Xray 1 View XY 04/25/25 Resulted 16:26 Ipratropium Medneb PHA 04/25/25 In Process (Atrovent Medneb) 18:00 Chest Xray 1 View XY 04/26/25 Logged 06:53 D5 1/2 Ns W Potassium PHA 04/26/25 Verified 40meq 07:00 Levalbuterol Hcl PHA 04/26/25 Verified (Xopenex Medneb) 10:00 Chest Portable XY 04/27/25 Verified 05:00 Chest Portable XY 04/28/25 Verified 05:00 Chest Portable XY 04/29/25 Verified 05:00 Enoxaparin Sodium PHA 04/26/25 Verified (Lovenox) 10:00 Date of Service: Apr 26, 2025 Billing Provider: JAYDEN HILL NP Common Visit Codes: [id number] CARE 30-74 MIN JAYDEN HILL [employer]CR[employer]M SETTER Apr 26, 2025 07:02
[2025-04-26] MEDS: LEVALBUTEROL HCL 1.25 MG/3 ML NEB NEB SCH (09:19)
[2025-04-26] MEDS ORDERED: SODIUM CHLORIDE LOCK 10 ML ONE (09:44)
[2025-04-26] MEDS: ENOXAPARIN SOD 40 MG/0.4 ML SYRINGE SC SCH (09:45)
[2025-04-26 10:11] LABS: Base Excess 4.0 mmol/L (-2.0-3.0)
[2025-04-26] MEDS: diphenhydrAMINE HCL 50 MG/1 ML VL ONE ×2 (10:21→12:12)
--- NOTE | 2025-04-26 11:16 | DVH ---
CHEST RADIOGRAPH Indication: Left lung collapse Technique: XY CHEST XRAY 1 VIEW Comparison: CT abdomen from 04/23/2025 FINDINGS: Right PICC line tip projects over the SVC. The nasogastric tube appears to be coiled upon itself within the distal esophagus / proximal stomach The cardiac silhouette is unremarkable. The lungs demonstrate near complete opacification of the left hemithorax. The pulmonary vasculature is prominent. Moderate to large left pleural effusion. There i s no pneumothorax. IMPRESSION: Nasogastric tube appears to be looped upon itself/ correlate gland itself in the distal esophagus / p roximal stomach, possibly within the mediastinum. Recommend repositioning prior to utilization Near complete opacification left marty thorax with [id number] left pleural effusion.
[2025-04-26] MEDS: fentaNYL CITRATE 100 MCG/2 ML VL ONE (12:00)
[2025-04-26] MEDS: MIDAZOLAM HCL 5 MG/ML-1ML VIAL ONE (12:00)
[2025-04-26] MEDS: POTASSIUM PHOSPHATE 22 MEQ in SODIUM CHL 0.9% 100 ML IV ONE (12:47)
--- NOTE | 2025-04-26 13:26 | DVHPN2 ---
Progress Note Date Seen: Apr 26, 2025 Medical Necessity Reason Pt with a Central, PICC or Fol: No Objective vital signs Vital Sign Date Time Temp Pulse Resp B/P (MAP) Pulse Ox O2 Delivery O2 Flow Rate FiO2 04/26/25 11:00 105 18 150/78 (102) 96 04/26/25 10:00 Hi-Flow Heated NC+ 45 40 40 04/26/25 08:00 97.6 97.6 Total Intake and Output 04/25/25 04/25/25 04/26/25 15:00 23:00 07:00 Intake Total 968 ml 976 ml 1150 ml Output Total 3775 ml 900 ml Balance 968 ml -2799 ml 250 ml medications Current Medications Medications Dose Ordered Sig/Gregory Route Start Time Stop Time Status Last Admin Dose Admin Pantoprazole Sodium 40 mg DAILY IV 04/16/25 10:00 04/26/25 09:44 40 MG Piperacillin Sod/ Tazobactam Sod 100 ml @ 25 mls/hr Q8HR IV 04/16/25 22:00 04/26/25 05:12 25 MLS/HR Amino Acids 0 ml @ 0 mls/hr PER PHARMACY IV 04/18/25 17:45 Sodium Chloride 10 ml QSHIFT@10,22 IV 04/21/25 22:00 04/26/25 09:44 10 ML Furosemide 20 mg DAILY IV 04/25/25 10:00 04/26/25 09:44 20 MG Labetalol HCl 20 mg Q2HPRN PRN IV 04/24/25 15:30 04/25/25 23:05 20 MG Albuterol 2.5 mg Q3HPRN PRN NEB 04/24/25 16:15 Lorazepam 0.25 mg Q6HP PRN IV 04/24/25 18:30 Nicardipine/ Sodium Chloride 200 ml @ 50 mls/hr Q4H IV 04/25/25 09:45 Fat Emulsion Intravenous 50 ml/ Sodium Chloride 10 meq/Sodium Phosphate 40 meq/ Potassium Acetate 40 meq/Calcium Gluconate 4.65 meq/Magnesium Sulfate 14 meq/ Multivitamins 10 ml/Amino Acids/ Dextrose/Purified Water 1,206 ml @ 50 mls/hr Q24H8M IV 04/25/25 22:00 04/26/25 21:59 04/25/25 21:20 50 MLS/HR Acetylcysteine 100 mg Q4HR NEB 04/25/25 14:00 04/26/25 09:19 100 MG Ipratropium [place] 0.5 mg Q4HR NEB 04/25/25 18:00 04/26/25 09:19 0.5 MG Potassium Chloride/Dextrose/ Sod Cl 1,000 ml @ 30 mls/hr Q24H IV 04/26/25 07:00 04/26/25 13:01 30 MLS/HR Levalbuterol HCl 0.625 mg Q4HR NEB 04/26/25 10:00 04/26/25 09:19 0.625 MG Enoxaparin Sodium 40 mg DAILY SC 04/26/25 10:00 04/26/25 09:45 40 MG Fat Emulsion Intravenous 100 ml/Potassium Chloride 40 meq/ Potassium Phosphate 22 meq/ Calcium Gluconate 9.3 meq/Magnesium Sulfate 16 meq/ Multivitamins 10 ml/Chromium/ Copper/Manganese/ Zinc 1 ml/Amino Acids/Dextrose 1,160 ml @ 48 mls/hr [id number] IV 04/26/25 22:00 04/27/25 21:59 laboratory and microbiology Laboratory Tests 04/26/25 02:30 Test 04/26/25 02:30 Range/Units Serum Glucose 134 H 74-106 mg/dL Microbiology Date/Time Source Procedure Growth Status 04/22/25 15:28 Nose MRSA Screen - Final Complete 04/20/25 22:35 Sputum Endotracheal Wash Gram Stain - Final Complete 04/20/25 22:35 Respiratory Culture - Final Yeast, not Piedad albicans Complete Problem List/Assessment/Plan Problem List/Assessment/Plan AFEBRILE VSS NO BM REPORTED WOUND DRESSING DRY REMAINS EXTUBATED AND AWAKE AND RESPONSIVE ILEUS POSSIBLE DUE TO RECENT E LAP WBC ELEVATED CXR LEFT LUNG WHITE OUT PULM BRONCHOSCOPY DONE CONTINUE SUPPORTIVE CARE FAMILY AWARE OF PT CONDITION NURSE AT BEDSIDE Plan discussed with: Other Dietary Evaluation Review Recommendations by RD: PPN/TPN Comments: 1) Increase TPN to meet at least 75% estimated daily needs 2) Advance to cardiac diet when medically feasible 3) Follow-up with gastroenterology and neurology 4) Continue to monitor I&O, labs, and skin integrity Expected Outcomes/Goals: 1) nutrition support to meet at least 75% estimated daily needs 2) labs to improve 3) diet to advance 4) gradual wt gain 5) f/u in 2-3 days GLORIA MCNEAL MD Apr 26, 2025 13:26
--- NOTE | 2025-04-26 13:30 | DVH ---
Indication: s/p bronchscopy Technique: XY CHEST PORTABLEXY Comparison: None FINDINGS/IMPRESSION: The nasogastric tube tip continues to be looped upon itself within the region of the posterior medias tinum/distal esophageal region. Recommend repositioning. Right PICC line tip projects over the SVC. Extensive left lung airspace opacification, slightly decreased from prior examination. Moderate to la rge left pleural effusion. Left lung air bronchograms. Right basilar airspace opacities. Pulmonary vascular congestion. Atherosclerotic calcification disease. Cholecystectomy clips.
[2025-04-26] MEDS: LORazepam 2MG/ML-1ML VIAL IV PRN (14:55)
[2025-04-26 19:00] LABS: Base Excess 5.3 mmol/L (-2.0-3.0)
[2025-04-26] MEDS: TPN PER PHARMACY IV NR (21:39)
--- NOTE | 2025-04-26 23:01 | DVHPN2 ---
Subjective DOS: 04/26/2025 Patient seen and examined at bedside. Remains on supplemental oxygen Overnight events reviewed. Reviewed: Care Plan, H&P, Labs, Medications Changes from previous H/P or p: No Changes General: Per HPI Objective Vitals Vital Signs Date Time Temp Pulse Resp B/P (MAP) Pulse Ox O2 Delivery O2 Flow Rate FiO2 04/26/25 22:15 86 18 153/43 (79) 100 04/26/25 22:00 Bi-Pap+ 40 40 04/26/25 21:00 97.8 97.8 04/26/25 18:00 12 Intake/Output Intake and Output 04/26/25 07:00 Intake Total 3094 ml Output Total 4675 ml Balance -1581 ml IV Total 3094 ml Output Urine Total 3225 ml Gastric Drainage Total 1450 ml General Appearance: Alert, Cooperative, mild distress HEENT: PERRLA, Other Lungs: Normal air movement, Other (Rhonchi in bases. Hi flow) Cardiovascular: Regular rate, Normal S1, Normal S2 Abdomen: No tenderness, No hepatospenomegaly, Other (Absent bowel sounds) Genitourinary: No Apparent Abnormalities (Grewal catheter) Musculoskeletal: Normal sensory function, Normal motor function Extremities: No edema Neuro: Other Skin: Dry, Intact, Wounds, Other (Surgical wound D&I) Psych/Mental Status: Mood NL Medications Current Medications Medications Dose Ordered Sig/Gregory Route Start Time Stop Time Status Last Admin Dose Admin Pantoprazole Sodium 40 mg DAILY IV 04/16/25 10:00 04/26/25 09:44 40 MG Piperacillin Sod/ Tazobactam Sod 100 ml @ 25 mls/hr Q8HR IV 04/16/25 22:00 04/26/25 21:39 25 MLS/HR Amino Acids 0 ml @ 0 mls/hr PER PHARMACY IV 04/18/25 17:45 Sodium Chloride 10 ml QSHIFT@10,22 IV 04/21/25 22:00 04/26/25 21:39 10 ML Furosemide 20 mg DAILY IV 04/25/25 10:00 04/26/25 09:44 20 MG Labetalol HCl 20 mg Q2HPRN PRN IV 04/24/25 15:30 04/26/25 18:24 20 MG Albuterol 2.5 mg Q3HPRN PRN NEB 04/24/25 16:15 Lorazepam 0.25 mg Q6HP PRN IV 04/24/25 18:30 04/26/25 14:55 0.25 MG Nicardipine/ Sodium Chloride 200 ml @ 50 mls/hr Q4H IV 04/25/25 09:45 Acetylcysteine 100 mg Q4HR [facility] 04/25/25 14:00 04/26/25 18:37 100 MG Ipratropium [place] 0.5 mg Q4HR NEB 04/25/25 18:00 04/26/25 18:37 0.5 MG Potassium Chloride/Dextrose/ Sod Cl 1,000 ml @ 30 mls/hr Q24H IV 04/26/25 07:00 04/26/25 13:01 30 MLS/HR Levalbuterol HCl 0.625 mg Q4HR NEB 04/26/25 10:00 04/26/25 18:37 0.625 MG Enoxaparin Sodium 40 mg DAILY SC 04/26/25 10:00 04/26/25 09:45 40 MG Fat Emulsion Intravenous 100 ml/Potassium Chloride 40 meq/ Potassium Phosphate 22 meq/ Calcium Gluconate 9.3 meq/Magnesium Sulfate 16 meq/ Multivitamins 10 ml/Chromium/ Copper/Manganese/ Zinc 1 ml/Amino Acids/Dextrose 1,160 ml @ 48 mls/hr [id number] IV 04/26/25 22:00 04/27/25 21:59 04/26/25 21:39 48 MLS/HR Laboratory Results Laboratory Tests 04/26/25 02:30 Chemistry Test 04/26/25 02:30 Albumin 3.5 g/dL (3.2-4.8) Calcium Level 8.0 mg/dL (8.7-10.4) L Magnesium Level 1.9 mg/dL (1.6-2.6) Phosphorus Level 2.4 mg/dL (2.4-5.1) Total Protein 6.3 g/dL (5.7-8.2) Lipid panel Test 04/26/25 02:30 Triglycerides Level 79 mg/dL (< 150) LFT Test 04/26/25 02:30 Alanine Aminotransferase (ALT) 46 U/L (7-40) H Alkaline Phosphatase 96 U/L (46-116) Aspartate Amino Transferase (AST) 41 U/L (13-40) H Total Bilirubin 0.7 mg/dL (0.2-1.0) Urinalysis Test 04/15/25 15:45 Urine Color Light-orange (Yellow) Urine Clarity Ex.turbid (Clear) Urine pH 5.5 (5.0-9.0) Urine Specific [place] 1.028 (1.001-1.035) Urine Protein 1+ (Negative) H Urine Ketones Negative (Negative) Urine Blood 1+ /uL (Negative) H Urine Nitrite Negative (Negative) Urine Bilirubin Negative (Negative) Urine Urobilinogen 3 mg/dL (Negative) H Urine Leukocyte Esterase Negative /uL (Negative) Urine RBC 16 /hpf (0 - 4) Urine Microscopic WBC 1 /HPF (0-5) Urine Squamous Epithelial Cells Mod /hpf (<5) Urine Amorphous Crystals Few /hpf (None Seen) Urine Bacteria Few /hpf (None Seen) H Urine Hyaline Casts Few /lpf (0 - 2) Urine Mucus Few (None Seen) Urine Glucose Normal mg/dL (Normal) Blood Gas Results Test 04/26/25 10:04 04/26/25 18:55 Arterial Blood pH 7.483 (7.350-7.450) 7.537 (7.350-7.450) FiO2 % 50.0 50.0 Microbiology Microbiology Date/Time Source Procedure Growth Status 04/22/25 15:28 Nose MRSA Screen - Final Complete 04/20/25 22:35 Sputum Endotracheal Wash Gram Stain - Final Complete 04/20/25 22:35 Respiratory Culture - Final Yeast, not Piedad albicans Complete Assessment/Plan Assessment/Plan Impression: Acute hypoxic respiratory failure Dependence on supplemental oxygen Atelectasis Lung collapse Pneumonia Hx of nicotine dependence Cachexia, BMI 17.4 Events: Remains on supplemental oxygen On HFO2 at FiO2 45% Improved FiO2 requirements S/p bronchoscopy with clearance of copious secretions in L1-L10. Endobronchial lesion in left mainstem bronchus, biopsied. Taper FiO2 as tolerated Continue bronchodilators/Mucomyst CPT Continue antibiotics Incentive spirometry TPN for nutritional support HOB elevation Aspiration precautions Labs and imaging reviewed. Rest of plan as noted below. Plan: Supplemental oxygen Titrate to keep O2 sats above 92%. Monitor respiratory status closely d/t increased O2 requirements Continue bronchodilators. Continue antibiotics Incentive spirometry Head of bed elevation Aspiration precautions NGT in place Monitor renal function. Monitor electrolytes. Supplement as necessary. Monitor ins and outs. DVT prophylaxis. Prognosis: Poor given patient's multiple co-morbidities. Condition: Critical Rest of plan per hospitalist and other consultants. A total of 35 minutes of critical care time was spent reviewing the patient record, examining the patient, making a diagnostic and therapeutic plan, discussing this plan with the medical personnel, following up on diagnostic studies and following the patient for clinical stability excluding any and all procedures. At least 50% of this time was spent in direct, [id number] contact. Thank you, JESÚS Ford, for allowing me to participate in this patient's care. Further recommendations will depend on the patient's clinical course. Please do not hesitate to contact me if you have any questions or concerns. This medical document was created using an electronic medical record system with [employer] dictation system. Although these documentations are being carefully reviewed, there may still be some phonetic and typographical changes. The errors are purely typographical, due to imperfection on the software program, and do not reflect any compromise in the patient's medical care. Plan discussed with: Other (KIA Joseph) My Orders Orders - KARENA WESTFALL MD Procedure Category Date Status Time Chest Portable XY 04/26/25 Resulted 12:28 [place] Cytology PATHOLOGY 04/26/25 Transmitted 13:55 Specimen Biopsy PATHOLOGY 04/26/25 Transmitted Histopathology 13:55 BIPAP RT 04/26/25 Logged 16:47 Abg W/ Co-Ox RT 04/26/25 Logged 19:00 Visit Coding Pulmonary Billing Provider: KARENA WESTFALL MD Date of Service if different f: Apr 26, 2025 Common Visit Codes: [id number] INP/OBS CARE(HIGH), [id number] CARE 30-74 MIN KARENA WESTFALL MD Apr 26, 2025 23:01
[2025-04-27] VITALS (102 sets, daily range): BP systolic 104–195; BP diastolic 28–130; PULSE 76–116; RESP 10–42; TEMP 97.6–99.8; O2SAT 61–100
[2025-04-27 01:01] LABS: Base Excess 6.0 mmol/L (-2.0-3.0)
[2025-04-27 03:45] LABS: Hematocrit 31.3 % (36.0-46.0); Hemoglobin 10.8 g/dL (12.2-16.2); Mean Corpuscular Hemoglobin 34.1 pg (28.0-32.0); Mean Corpuscular Volume 99.1 fL (80.0-100.0); Nucleated Red Blood Cells % 0.0 %
[2025-04-27 03:59] LABS: Alanine Aminotransferase 63 U/L (7-40); Albumin 3.4 g/dL (3.2-4.8); Alkaline Phosphatase 96 U/L (46-116); Anion Gap 10 (5-15); BUN/Creatinine Ratio 47.2 (10.0-20.0); Blood Urea Nitrogen 25 mg/dL (9-23); Calcium 8.4 mg/dL (8.7-10.4); Carbon Dioxide 30 mmol/L (20-31); Chloride 102 mmol/L (98-107); Glucose 130 mg/dL (74-106); Magnesium 2.2 mg/dL (1.6-2.6); Potassium 3.8 mmol/L (3.5-5.1); Sodium 142 mmol/L (136-145); Total Protein 6.1 g/dL (5.7-8.2)
[2025-04-27 04:00] LABS: Bilirubin, Total 0.9 mg/dL (0.2-1.0)
--- NOTE | 2025-04-27 07:18 | DVH ---
CHEST RADIOGRAPH Indication: pna Technique: Single frontal view of the chest was obtained Comparison: XY CHEST PORTABLE on DOS: 04/26/25, XY CHEST XRAY 1 VIEW on DOS: 04/26/25, XY CHEST XRAY 1 VIEW on DOS: 04/25/25 IMPRESSION: Enteric tube tip remains coiled in the mediastinum which likely represents a hiatal hernia. There is a moderate to large left pleural effusion which appear similar to prior examination. Consolidation or atelectasis of the left lung base is not excluded. The right lung appears clear. No pneumothorax. HS:Y
[2025-04-27 08:48] LABS: Base Excess 3.6 mmol/L (-2.0-3.0)
--- NOTE | 2025-04-27 09:36 | DVHPN2 ---
Subjective Patient denies any symptoms Reviewed: Care Plan, H&P, Labs, Medications Changes from previous H/P or p: No Changes General: Per HPI Objective Vitals Vital Signs Date Time Temp Pulse Resp B/P (MAP) Pulse Ox O2 Delivery O2 Flow Rate FiO2 04/27/25 09:00 86 19 158/61 (93) 97 04/27/25 08:01 97.6 97.6 04/27/25 08:00 Hi-Flow Heated NC+ 40 50 50 Intake/Output Intake and Output 04/27/25 07:00 Intake Total 2260.25 ml Output Total 3610 ml Balance -1349.75 ml Intake Oral 0 ml IV Total 2260.25 ml Output Urine Total 3250 ml Gastric Drainage Total 360 ml # Bowel Movements 3 General Appearance: Alert, Cooperative, mild distress HEENT: PERRLA, Other Lungs: Normal air movement, Other (Decreased breath sound on left lower lung. High-flow at 50% FiO2) Cardiovascular: Normal S1, Normal S2 Abdomen: No tenderness, No hepatospenomegaly, Other (Reported BM yesterday evening. Hypoactive bowel sounds) Genitourinary: No Apparent Abnormalities (Grewal catheter) Musculoskeletal: Normal sensory function, Normal motor function Extremities: No edema, Normal pulses, No tenderness/swelling Neuro: Other Skin: Dry, Intact, Wounds, Other (Surgical wound D&I) Psych/Mental Status: Mood NL Medications Current Medications Medications Dose Ordered Sig/Gregory Route Start Time Stop Time Status Last Admin Dose Admin Pantoprazole Sodium 40 mg DAILY IV 04/16/25 10:00 04/27/25 09:25 40 MG Piperacillin Sod/ Tazobactam Sod 100 ml @ 25 mls/hr Q8HR IV 04/16/25 22:00 04/27/25 05:53 25 MLS/HR Amino Acids 0 ml @ 0 mls/hr PER PHARMACY IV 04/18/25 17:45 Sodium Chloride 10 ml QSHIFT@10,22 IV 04/21/25 22:00 04/27/25 09:25 10 ML Furosemide 20 mg DAILY IV 04/25/25 10:00 04/26/25 09:44 20 MG Labetalol HCl 20 mg Q2HPRN PRN IV 04/24/25 15:30 04/26/25 18:24 20 MG Albuterol 2.5 mg Q3HPRN PRN NEB 04/24/25 16:15 Lorazepam 0.25 mg Q6HP PRN IV 04/24/25 18:30 04/26/25 14:55 0.25 MG Nicardipine/ Sodium Chloride 200 ml @ 50 mls/hr Q4H IV 04/25/25 09:45 Acetylcysteine 100 mg Q4HR NEB 04/25/25 14:00 04/27/25 06:41 100 MG Ipratropium [place] 0.5 mg Q4HR [facility] 04/25/25 18:00 04/27/25 06:40 0.5 MG Potassium Chloride/Dextrose/ Sod Cl 1,000 ml @ 30 mls/hr Q24H IV 04/26/25 07:00 04/26/25 13:01 30 MLS/HR Levalbuterol HCl 0.625 mg Q4HR [facility] 04/26/25 10:00 04/27/25 06:40 0.625 MG Enoxaparin Sodium 40 mg DAILY SC 04/26/25 10:00 04/27/25 09:25 40 MG Fat Emulsion Intravenous 100 ml/Potassium Chloride 40 meq/ Potassium Phosphate 22 meq/ Calcium Gluconate 9.3 meq/Magnesium Sulfate 16 meq/ Multivitamins 10 ml/Chromium/ Copper/Manganese/ Zinc 1 ml/Amino Acids/Dextrose 1,160 ml @ 48 mls/hr [id number] IV 04/26/25 22:00 04/27/25 21:59 04/26/25 21:39 48 MLS/HR Laboratory Results Laboratory Tests 04/27/25 03:04 Chemistry Test 04/27/25 03:04 Albumin 3.4 g/dL (3.2-4.8) Calcium Level 8.4 mg/dL (8.7-10.4) L Magnesium Level 2.2 mg/dL (1.6-2.6) Phosphorus Level 3.2 mg/dL (2.4-5.1) Total Protein 6.1 g/dL (5.7-8.2) LFT Test 04/27/25 03:04 Alanine Aminotransferase (ALT) 63 U/L (7-40) H Alkaline Phosphatase 96 U/L (46-116) Aspartate Amino Transferase (AST) 49 U/L (13-40) H Total Bilirubin 0.9 mg/dL (0.2-1.0) Urinalysis Test 04/15/25 15:45 Urine Color Light-orange (Yellow) Urine Clarity Ex.turbid (Clear) Urine pH 5.5 (5.0-9.0) Urine Specific [place] 1.028 (1.001-1.035) Urine Protein 1+ (Negative) H Urine Ketones Negative (Negative) Urine Blood 1+ /uL (Negative) H Urine Nitrite Negative (Negative) Urine Bilirubin Negative (Negative) Urine Urobilinogen 3 mg/dL (Negative) H Urine Leukocyte Esterase Negative /uL (Negative) Urine RBC 16 /hpf (0 - 4) Urine Microscopic WBC 1 /HPF (0-5) Urine Squamous Epithelial Cells Mod /hpf (<5) Urine Amorphous Crystals Few /hpf (None Seen) Urine Bacteria Few /hpf (None Seen) H Urine Hyaline Casts Few /lpf (0 - 2) Urine Mucus Few (None Seen) Urine Glucose Normal mg/dL (Normal) Blood Gas Results Test 04/26/25 10:04 04/26/25 18:55 04/27/25 00:39 04/27/25 08:34 Arterial Blood pH 7.483 (7.350-7.450) 7.537 (7.350-7.450) 7.533 (7.350-7.450) 7.501 (7.350-7.450) FiO2 % 50.0 50.0 60.0 50.0 Microbiology Microbiology Date/Time Source Procedure Growth Status 04/22/25 15:28 Nose MRSA Screen - Final Complete 04/20/25 22:35 Sputum Endotracheal Wash Gram Stain - Final Complete 04/20/25 22:35 Respiratory Culture - Final Yeast, not Piedad albicans Complete Labs and/or images reviewed: Labs reviewed by me, Image(s) reviewed by me Assessment/Plan Assessment/Plan Impression: -choledocholithiasis -acute pancreatitis -small-bowel obstruction -dementia -cachexia -sepsis -COPD -GERD -Post op delirium -Accelerated HTN -A. fib Plan: Events: Patient on high-flow at 50% FiO2. Reported BM yesterday evening. Patient had bronchoscopy with noted bronchial lesions. Left lower lung continues to have atelectasis, collapse. -CT scan of chest -KUB -continue TPN, IV fluids at TKO -Pulmonology consult- case discussed -NG to LIS -Continue Zosyn -PPI -Antihypertensives -pain management -Bronchodilators, Mucomyst, PDP, Nasal suction -repeat labs in a.m. Total time spent with patient discussing and formulating plan of care: 35 minutes. This medical document was created using an electronic medical record system with [employer] dictation system. Although this document has been carefully reviewed, there may still be some phonetic and typographical errors. These areas are purely typographical due to imperfections of the software programs, and do not reflect any compromise in the patient's medical care. Plan discussed with: Patient, Other (RN) My Orders Orders - JAYDEN HILL NP Procedure Category Date Status Time Abg W/ Co-Ox RT 04/26/25 Logged 09:[address] 04/27/25 Logged 08:32 Kub Abdomen Single XY 04/27/25 Verified View 09:31 Electrocardigram EKG 04/27/25 Verified 09:31 Complete Blood Count LAB 04/28/25 Verified 05:00 Complete Blood Count LAB 04/29/25 Verified 05:00 Date of Service: Apr 27, 2025 Billing Provider: JAYDEN HILL NP Common Visit Codes: [id number] CARE 30-74 MIN JAYDEN HILL NP Apr 27, 2025 09:35
--- NOTE | 2025-04-27 10:11 | DVHPN2 ---
Progress Note - Dictate Date Seen: Apr 27, 2025 Medical Necessity Reason Pt with a Central, PICC or Fol: No Subjective Patient remains extubated Patient on high-flow at 50% FiO2. Reported BM yesterday evening. Patient had bronchoscopy with noted bronchial lesions. Left lower lung continues to have atelectasis, collapse. vital signs Vital Sign Date Time Temp Pulse Resp B/P (MAP) Pulse Ox O2 Delivery O2 Flow Rate FiO2 04/27/25 09:00 86 19 158/61 (93) 97 04/27/25 08:01 97.6 97.6 04/27/25 08:00 Hi-Flow Heated NC+ 40 50 50 Total Intake and Output 04/26/25 04/26/25 04/27/25 15:00 23:00 07:00 Intake Total 872.75 ml 738.50 ml 649 ml Output Total 2850 ml 760 ml Balance 872.75 ml -2111.50 ml -111 ml medications Current Medications Medications Dose Ordered Sig/Gregory Route Start Time Stop Time Status Last Admin Dose Admin Pantoprazole Sodium 40 mg DAILY IV 04/16/25 10:00 04/27/25 09:25 40 MG Piperacillin Sod/ Tazobactam Sod 100 ml @ 25 mls/hr Q8HR IV 04/16/25 22:00 04/27/25 05:53 25 MLS/HR Amino Acids 0 ml @ 0 mls/hr PER PHARMACY IV 04/18/25 17:45 Sodium Chloride 10 ml QSHIFT@10,22 IV 04/21/25 22:00 04/27/25 09:25 10 ML Furosemide 20 mg DAILY IV 04/25/25 10:00 04/26/25 09:44 20 MG Labetalol HCl 20 mg Q2HPRN PRN IV 04/24/25 15:30 04/26/25 18:24 20 MG Albuterol 2.5 mg Q3HPRN PRN NEB 04/24/25 16:15 Lorazepam 0.25 mg Q6HP PRN IV 04/24/25 18:30 04/26/25 14:55 0.25 MG Nicardipine/ Sodium Chloride 200 ml @ 50 mls/hr Q4H IV 04/25/25 09:45 Acetylcysteine 100 mg Q4HR NEB 04/25/25 14:00 04/27/25 06:41 100 MG Ipratropium [place] 0.5 mg Q4HR NEB 04/25/25 18:00 04/27/25 06:40 0.5 MG Potassium Chloride/Dextrose/ Sod Cl 1,000 ml @ 30 mls/hr Q24H IV 04/26/25 07:00 04/26/25 13:01 30 MLS/HR Levalbuterol HCl 0.625 mg Q4HR NEB 04/26/25 10:00 04/27/25 06:40 0.625 MG Enoxaparin Sodium 40 mg DAILY SC 04/26/25 10:00 04/27/25 09:25 40 MG Fat Emulsion Intravenous 100 ml/Potassium Chloride 40 meq/ Potassium Phosphate 22 meq/ Calcium Gluconate 9.3 meq/Magnesium Sulfate 16 meq/ Multivitamins 10 ml/Chromium/ Copper/Manganese/ Zinc 1 ml/Amino Acids/Dextrose 1,160 ml @ 48 mls/hr [id number] IV 04/26/25 22:00 04/27/25 21:59 04/26/25 21:39 48 MLS/HR Fat Emulsion Intravenous 100 ml/Potassium Chloride 60 meq/ Calcium Gluconate 6.975 meq/ Magnesium Sulfate 14 meq/ Multivitamins 10 ml/Chromium/ Copper/Manganese/ Zinc 1 ml/Amino Acids/Dextrose 1,159.5 ml @ 48 mls/hr [id number] IV 04/27/25 22:00 04/28/25 21:59 objective General Appearance: Alert, Cooperative, no distress HEENT: PERRLA, EOMI Lungs: Decreased breath sound on left lower lung. High-flow at 50% FiO2 Cardiovascular: Normal S1, Normal S2 Abdomen: No tenderness, No hepatospenomegaly, hypoactive bowel sounds, surgical wound dry Genitourinary: No Apparent Abnormalities (Grewal catheter) Musculoskeletal: Normal sensory function, Normal motor function Extremities: No edema, Normal pulses, No tenderness/swelling laboratory and microbiology Laboratory Tests 04/27/25 03:04 Test 04/27/25 03:04 Range/Units Serum Glucose 130 H 74-106 mg/dL Problems(with codes): (1) Small bowel obstruction (2) Hip sprain (3) Acute respiratory distress (4) COPD (chronic obstructive pulmonary disease) Prognosis PLAN -CT scan of chest -KUB -continue TPN, IV fluids at TKO -Pulmonology consult following Surgical consult following -NG to LIS -Continue Zosyn -PPI -Antihypertensives -pain management -Bronchodilators, Mucomyst, PDP, Nasal suction -repeat labs in a.m. Dietary Evaluation Review Recommendations by RD: PPN/TPN Comments: 1) Increase TPN to meet at least 75% estimated daily needs 2) Advance to cardiac diet when medically feasible 3) Follow-up with gastroenterology and neurology 4) Continue to monitor I&O, labs, and skin integrity Expected Outcomes/Goals: 1) nutrition support to meet at least 75% estimated daily needs 2) labs to improve 3) diet to advance 4) gradual wt gain 5) f/u in 2-3 days Plan discussed with: Patient, Other (ICU Nurse) JIL MCNEAL MD Apr 27, 2025 10:11
--- NOTE | 2025-04-27 18:16 | DVH ---
Date: 04/27/2025 05:44 PM Examination: XY KUB ABDOMEN SINGLE VIEW History: reassess ileus Comparison: XY KUB ABDOMEN SINGLE VIEW on DOS: 04/24/25, XY KUB ABDOMEN SINGLE VIEW on DOS: 04/20/25, XY KUB ABDOMEN SINGLE VIEW on DOS: 04/18/25 TECHNIQUE: Frontal views of the abdomen was obtained. FINDINGS: Bowel gas pattern is unremarkable. Appears to be contrast in the splenic flexure and left colon and r ectosigmoid colons. There are currently no findings to suggest bowel obstruction. The lung bases are unremarkable. Bilateral bipolar hip prostheses. IMPRESSION: 1. Nonobstructive bowel gas pattern. 2. Contrast noted in the left rectosigmoid colons.
[2025-04-27] MEDS: TPN PER PHARMACY IV NR (21:07)
--- NOTE | 2025-04-27 23:32 | DVHPN2 ---
Subjective DOS: 04/27/2025 Patient seen and examined at bedside. Remains on supplemental oxygen Overnight events reviewed. Reviewed: Care Plan, H&P, Labs, Medications Changes from previous H/P or p: No Changes General: Per HPI Objective Vitals Vital Signs Date Time Temp Pulse Resp B/P (MAP) Pulse Ox O2 Delivery O2 Flow Rate FiO2 04/27/25 23:00 81 30 168/54 (92) 97 04/27/25 22:55 40.0 50 04/27/25 22:00 Hi-Flow Heated NC+ 04/27/25 20:00 97.8 97.8 Intake/Output Intake and Output 04/27/25 07:00 Intake Total 2260.25 ml Output Total 3610 ml Balance -1349.75 ml Intake Oral 0 ml IV Total 2260.25 ml Output Urine Total 3250 ml Gastric Drainage Total 360 ml # Bowel Movements 3 General Appearance: Alert, Cooperative, mild distress HEENT: PERRLA, Other Lungs: Normal air movement, Other (Decreased breath sound on left lower lung. High-flow at 50% FiO2) Cardiovascular: Normal S1, Normal S2 Abdomen: No tenderness, No hepatospenomegaly, Other (Reported BM yesterday evening. Hypoactive bowel sounds) Genitourinary: No Apparent Abnormalities (Grewal catheter) Musculoskeletal: Normal sensory function, Normal motor function Extremities: No edema, Normal pulses, No tenderness/swelling Neuro: Other Skin: Dry, Intact, Wounds, Other (Surgical wound D&I) Psych/Mental Status: Mood NL Medications Current Medications Medications Dose Ordered Sig/Gregory Route Start Time Stop Time Status Last Admin Dose Admin Pantoprazole Sodium 40 mg DAILY IV 04/16/25 10:00 04/27/25 09:25 40 MG Piperacillin Sod/ Tazobactam Sod 100 ml @ 25 mls/hr Q8HR IV 04/16/25 22:00 04/27/25 21:05 25 MLS/HR Amino Acids 0 ml @ 0 mls/hr PER PHARMACY IV 04/18/25 17:45 Sodium Chloride 10 ml QSHIFT@10,22 IV 04/21/25 22:00 04/27/25 21:05 10 ML Furosemide 20 mg DAILY IV 04/25/25 10:00 04/27/25 10:26 20 MG Labetalol HCl 20 mg Q2HPRN PRN IV 04/24/25 15:30 04/27/25 22:00 20 MG Albuterol 2.5 mg Q3HPRN PRN NEB 04/24/25 16:15 Lorazepam 0.25 mg Q6HP PRN IV 04/24/25 18:30 04/27/25 11:57 0.25 MG Nicardipine/ Sodium Chloride 200 ml @ 50 mls/hr Q4H IV 04/25/25 09:45 Acetylcysteine 100 mg Q4HR NEB 04/25/25 14:00 04/27/25 22:55 100 MG Ipratropium [place] 0.5 mg Q4HR NEB 04/25/25 18:00 04/27/25 22:54 0.5 MG Potassium Chloride/Dextrose/ Sod Cl 1,000 ml @ 30 mls/hr Q24H IV 04/26/25 07:00 04/26/25 13:01 30 MLS/HR Levalbuterol HCl 0.625 mg Q4HR NEB 04/26/25 10:00 04/27/25 22:54 0.625 MG Enoxaparin Sodium 40 mg DAILY SC 04/26/25 10:00 04/27/25 09:25 40 MG Fat Emulsion Intravenous 100 ml/Potassium Chloride 60 meq/ Calcium Gluconate 6.975 meq/ Magnesium Sulfate 14 meq/ Multivitamins 10 ml/Chromium/ Copper/Manganese/ Zinc 1 ml/Amino Acids/Dextrose 1,159.5 ml @ 48 mls/hr [id number] IV 04/27/25 22:00 04/28/25 21:59 04/27/25 21:07 48 MLS/HR Laboratory Results Laboratory Tests 04/27/25 03:04 Chemistry Test 04/27/25 03:04 Albumin 3.4 g/dL (3.2-4.8) Calcium Level 8.4 mg/dL (8.7-10.4) L Magnesium Level 2.2 mg/dL (1.6-2.6) Phosphorus Level 3.2 mg/dL (2.4-5.1) Total Protein 6.1 g/dL (5.7-8.2) LFT Test 04/27/25 03:04 Alanine Aminotransferase (ALT) 63 U/L (7-40) H Alkaline Phosphatase 96 U/L (46-116) Aspartate Amino Transferase (AST) 49 U/L (13-40) H Total Bilirubin 0.9 mg/dL (0.2-1.0) Urinalysis Test 04/15/25 15:45 Urine Color Light-orange (Yellow) Urine Clarity Ex.turbid (Clear) Urine pH 5.5 (5.0-9.0) Urine Specific [place] 1.028 (1.001-1.035) Urine Protein 1+ (Negative) H Urine Ketones Negative (Negative) Urine Blood 1+ /uL (Negative) H Urine Nitrite Negative (Negative) Urine Bilirubin Negative (Negative) Urine Urobilinogen 3 mg/dL (Negative) H Urine Leukocyte Esterase Negative /uL (Negative) Urine RBC 16 /hpf (0 - 4) Urine Microscopic WBC 1 /HPF (0-5) Urine Squamous Epithelial Cells Mod /hpf (<5) Urine Amorphous Crystals Few /hpf (None Seen) Urine Bacteria Few /hpf (None Seen) H Urine Hyaline Casts Few /lpf (0 - 2) Urine Mucus Few (None Seen) Urine Glucose Normal mg/dL (Normal) Blood Gas Results Test 04/27/25 00:39 04/27/25 08:34 Arterial Blood pH 7.533 (7.350-7.450) 7.501 (7.350-7.450) FiO2 % 60.0 50.0 Microbiology Microbiology Date/Time Source Procedure Growth Status 04/22/25 15:28 Nose MRSA Screen - Final Complete 04/20/25 22:35 Sputum Endotracheal Wash Gram Stain - Final Complete 04/20/25 22:35 Respiratory Culture - Final Yeast, not Piedad albicans Complete Assessment/Plan Assessment/Plan Impression: Acute hypoxic respiratory failure Dependence on supplemental oxygen Atelectasis Lung collapse Pneumonia Hx of nicotine dependence Cachexia, BMI 17.4 Events: Remains on supplemental oxygen On HFO2 at flow rate 40 LPM, FiO2 50% Taper O2 as tolerated, transition to low flow. S/p bronchoscopy on 04/26/25 with clearance of copious secretions in L1-L10. Endobronchial lesion in left mainstem bronchus, biopsied. Follow up biopsy results. Continue bronchodilators/Mucomyst CPT Continue antibiotics Incentive spirometry IV fluids with D5-1/2 NS with KCl 40 mEq. TPN for nutritional support HOB elevation Aspiration precautions Labs and imaging reviewed. Rest of plan as noted below. Plan: Supplemental oxygen Titrate to keep O2 sats above 92%. Monitor respiratory status closely d/t increased O2 requirements Continue bronchodilators. Continue antibiotics Incentive spirometry Head of bed elevation Aspiration precautions NGT in place Monitor renal function. Monitor electrolytes. Supplement as necessary. Monitor ins and outs. DVT prophylaxis. Prognosis: Poor given patient's multiple co-morbidities. Condition: Critical Rest of plan per hospitalist and other consultants. A total of 35 minutes of critical care time was spent reviewing the patient record, examining the patient, making a diagnostic and therapeutic plan, discussing this plan with the medical personnel, following up on diagnostic studies and following the patient for clinical stability excluding any and all procedures. At least 50% of this time was spent in direct, [id number] contact. Thank you, JESÚS Ford, for allowing me to participate in this patient's care. Further recommendations will depend on the patient's clinical course. Please do not hesitate to contact me if you have any questions or concerns. This medical document was created using an electronic medical record system with [employer] dictation system. Although these documentations are being carefully reviewed, there may still be some phonetic and typographical changes. The errors are purely typographical, due to imperfection on the software program, and do not reflect any compromise in the patient's medical care. Plan discussed with: Patient, Other (KIA Mir) My Orders Orders - KARENA WESTFALL MD Procedure Category Date Status Time Abg W/ Co-Ox RT 04/27/25 Logged 00:00 Visit Coding Pulmonary Billing Provider: KARENA WESTFALL MD Date of Service if different f: Apr 27, 2025 Common Visit Codes: [id number] INP/OBS CARE(HIGH), [id number] CARE 30-74 MIN KARENA WESTFALL MD Apr 27, 2025 23:32
[2025-04-28] VITALS (109 sets, daily range): BP systolic 98–194; BP diastolic 35–85; PULSE 75–166; RESP 12–42; TEMP 98.2–98.6; O2SAT 77–100
--- NOTE | 2025-04-28 03:43 | DVH ---
CHEST RADIOGRAPH Indication: pna Technique: Single frontal view of the chest was obtained COMPARISON: XY CHEST PORTABLE on DOS: 04/27/25, XY CHEST PORTABLE on DOS: 04/26/25, XY CHEST XRAY 1 V IEW on DOS: 04/26/25, XY CHEST XRAY 1 VIEW on DOS: 04/25/25, XY CHEST XRAY 1 VIEW on DOS: 04/25/25 FINDINGS: Lines and Tubes: Unchanged. Lungs: Slight interval increase in subtotal opacification of the left marty thorax. Mild patchy right apical pulmonary airspace disease redemonstrated. The right lung base is clear. No pneumothorax. Cardiomediastinal contours: Poorly evaluated secondary to extensive left hemithoracic opacification. Bones: Unremarkable IMPRESSION: 1. Slight interval increase in subtotal opacification of the left hemithorax. 2. Mild patchy right apical pulmonary airspace disease. 3. Lines and tubes unchanged.
[2025-04-28 03:46] LABS: Alkaline Phosphatase 114 U/L (46-116); Anion Gap 10 (5-15); Calcium 8.7 mg/dL (8.7-10.4); Carbon Dioxide 28 mmol/L (20-31); Chloride 102 mmol/L (98-107); Magnesium 2.3 mg/dL (1.6-2.6); Potassium 4.0 mmol/L (3.5-5.1); Sodium 140 mmol/L (136-145)
[2025-04-28 03:47] LABS: BUN/Creatinine Ratio 52.7 (10.0-20.0); Total Protein 6.6 g/dL (5.7-8.2)
[2025-04-28 03:48] LABS: Albumin 3.7 g/dL (3.2-4.8); Bilirubin, Total 0.9 mg/dL (0.2-1.0)
[2025-04-28 03:54] LABS: Hematocrit 34.5 % (36.0-46.0); Hemoglobin 11.5 g/dL (12.2-16.2); Mean Corpuscular Hemoglobin 33.0 pg (28.0-32.0); Mean Corpuscular Volume 99.1 fL (80.0-100.0); Nucleated Red Blood Cells % 0.1 %
[2025-04-28 03:57] LABS: Alanine Aminotransferase 78 U/L (7-40); Blood Urea Nitrogen 29 mg/dL (9-23); Glucose 149 mg/dL (74-106)
--- NOTE | 2025-04-28 08:02 | DVH ---
CHEST RADIOGRAPH Indication: CONFIRM NG PLACEMENT Technique: Single frontal view of the chest was obtained Comparison: CT CHEST WITHOUT CONTRAST on DOS: 04/28/25 FINDINGS: Patient to the left which rotated which limits evaluation. Lines and Tubes: The endotracheal and enteric tube are unchanged in position. Right central venous ca theter or PICC terminates in the superior vena cava. Lungs: Complete opacification of the left hemithorax similar to prior study. Pleura: No effusion. No pneumothorax. Cardiomediastinal contours: Obscured. Bones: No acute osseous abnormality. IMPRESSION: 1. Complete opacification of the left hemithorax similar to prior study. 2. No significant change in position of the support lines and tubes.
--- NOTE | 2025-04-28 08:16 | ECG ---
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
[2025-04-28 08:25] LABS: Base Excess 2.0 mmol/L (-2.0-3.0)
--- NOTE | 2025-04-28 08:54 | DVHPN2 ---
Subjective Patient denies any symptoms Reviewed: Care Plan, H&P, Labs, Medications Changes from previous H/P or p: No Changes General: Per HPI Objective Vitals Vital Signs Date Time Temp Pulse Resp B/P (MAP) Pulse Ox O2 Delivery O2 Flow Rate FiO2 04/28/25 07:44 25 Hi-Flow Heated NC+ 30 40 40 04/28/25 06:45 86 160/49 (86) 99 04/27/25 20:00 97.8 97.8 Intake/Output Intake and Output 04/28/25 07:00 Intake Total 2021 ml Output Total 2740 ml Balance -719 ml Intake Oral 0 ml IV Total 2021 ml Output Urine Total 2500 ml Gastric Drainage Total 240 ml # Bowel Movements 3 General Appearance: Alert, Cooperative, mild distress HEENT: PERRLA, Other Lungs: Normal air movement, Other (Decreased breath sound on left lower lung. High-flow at 50% FiO2) Cardiovascular: Normal S1, Normal S2 Abdomen: No tenderness, No hepatospenomegaly, Other (Reported BM yesterday evening. Hypoactive bowel sounds) Genitourinary: No Apparent Abnormalities (Grewal catheter) Musculoskeletal: Normal sensory function, Normal motor function Extremities: No edema, Normal pulses, No tenderness/swelling Neuro: Other Skin: Dry, Intact, Wounds, Other (Surgical wound D&I) Psych/Mental Status: Mood NL Medications Current Medications Medications Dose Ordered Sig/Gregory Route Start Time Stop Time Status Last Admin Dose Admin Pantoprazole Sodium 40 mg DAILY IV 04/16/25 10:00 04/27/25 09:25 40 MG Piperacillin Sod/ Tazobactam Sod 100 ml @ 25 mls/hr Q8HR IV 04/16/25 22:00 04/28/25 05:20 25 MLS/HR Amino Acids 0 ml @ 0 mls/hr PER PHARMACY IV 04/18/25 17:45 Sodium Chloride 10 ml QSHIFT@10,22 IV 04/21/25 22:00 04/27/25 21:05 10 ML Furosemide 20 mg DAILY IV 04/25/25 10:00 04/27/25 10:26 20 MG Labetalol HCl 20 mg Q2HPRN PRN IV 04/24/25 15:30 04/27/25 22:00 20 MG Albuterol 2.5 mg Q3HPRN PRN NEB 04/24/25 16:15 Lorazepam 0.25 mg Q6HP PRN IV 04/24/25 18:30 04/27/25 11:57 0.25 MG Nicardipine/ Sodium Chloride 200 ml @ 50 mls/hr Q4H IV 04/25/25 09:45 Acetylcysteine 100 mg Q4HR [facility] 04/25/25 14:00 04/28/25 06:07 100 MG Ipratropium [place] 0.5 mg Q4HR NEB 04/25/25 18:00 04/28/25 06:06 0.5 MG Potassium Chloride/Dextrose/ Sod Cl 1,000 ml @ 30 mls/hr Q24H IV 04/26/25 07:00 04/27/25 23:15 30 MLS/HR Levalbuterol HCl 0.625 mg Q4HR NEB 04/26/25 10:00 04/28/25 06:06 0.625 MG Enoxaparin Sodium 40 mg DAILY SC 04/26/25 10:00 04/27/25 09:25 40 MG Fat Emulsion Intravenous 100 ml/Potassium Chloride 60 meq/ Calcium Gluconate 6.975 meq/ Magnesium Sulfate 14 meq/ Multivitamins 10 ml/Chromium/ Copper/Manganese/ Zinc 1 ml/Amino Acids/Dextrose 1,159.5 ml @ 48 mls/hr [id number] IV 04/27/25 22:00 04/28/25 21:59 04/27/25 21:07 48 MLS/HR Laboratory Results Laboratory Tests 04/28/25 03:04 Chemistry Test 04/28/25 03:04 Albumin 3.7 g/dL (3.2-4.8) Calcium Level 8.7 mg/dL (8.7-10.4) Magnesium Level 2.3 mg/dL (1.6-2.6) Phosphorus Level 2.5 mg/dL (2.4-5.1) Total Protein 6.6 g/dL (5.7-8.2) LFT Test 04/28/25 03:04 Alanine Aminotransferase (ALT) 78 U/L (7-40) H Alkaline Phosphatase 114 U/L (46-116) Aspartate Amino Transferase (AST) 55 U/L (13-40) H Total Bilirubin 0.9 mg/dL (0.2-1.0) Urinalysis Test 04/15/25 15:45 Urine Color Light-orange (Yellow) Urine Clarity Ex.turbid (Clear) Urine pH 5.5 (5.0-9.0) Urine Specific [place] 1.028 (1.001-1.035) Urine Protein 1+ (Negative) H Urine Ketones Negative (Negative) Urine Blood 1+ /uL (Negative) H Urine Nitrite Negative (Negative) Urine Bilirubin Negative (Negative) Urine Urobilinogen 3 mg/dL (Negative) H Urine Leukocyte Esterase Negative /uL (Negative) Urine RBC 16 /hpf (0 - 4) Urine Microscopic WBC 1 /HPF (0-5) Urine Squamous Epithelial Cells Mod /hpf (<5) Urine Amorphous Crystals Few /hpf (None Seen) Urine Bacteria Few /hpf (None Seen) H Urine Hyaline Casts Few /lpf (0 - 2) Urine Mucus Few (None Seen) Urine Glucose Normal mg/dL (Normal) Blood Gas Results Test 04/28/25 08:18 Arterial Blood pH 7.528 (7.350-7.450) FiO2 % 40.0 Microbiology Microbiology Date/Time Source Procedure Growth Status 04/22/25 15:28 Nose MRSA Screen - Final Complete 04/20/25 22:35 Sputum Endotracheal Wash Gram Stain - Final Complete 04/20/25 22:35 Respiratory Culture - Final Yeast, not Piedad albicans Complete Labs and/or images reviewed: Labs reviewed by me, Image(s) reviewed by me Assessment/Plan Assessment/Plan Impression: -choledocholithiasis -acute pancreatitis -small-bowel obstruction -dementia -cachexia -sepsis -COPD -GERD -Post op delirium -Accelerated HTN -A. fib Plan: Events: Chest x-ray with complete left lung whiteout. O2 requirements are high-flow at 40 L/min, 40% FiO2. CT scan of the chest was not performed yesterday given O2 requirements. Plans for performance CT today. KUB reveals that postop ileus has resolved. Minimal NG drainage. -continue TPN and TKO IV fluids. -stop Lasix -Pulmonology consult- case discussed -NG to LIS -Continue Zosyn -PPI -Antihypertensives -pain management -continue bronchodilators, Mucomyst -repeat labs in a.m. Critical care time spent with patient discussing and formulating plan of care: 40 minutes. This does not include time spent performing procedures. This medical document was created using an electronic medical record system with Dragon computerized dictation system. Although this document has been carefully reviewed, there may still be some phonetic and typographical errors. These areas are purely typographical due to imperfections of the software programs, and do not reflect any compromise in the patient's medical care. Plan discussed with: Patient, Other (RN) My Orders Orders - JAYDEN HILL NP Procedure Category Date Status Time Kub Abdomen Single XY 04/27/25 Resulted View 09:31 Complete Blood Count LAB 04/29/25 Verified 05:00 Complete Blood Count LAB 04/30/25 Verified 05:00 Chest Portable XY 04/28/25 Resulted 06:57 Abg W/ Co-Ox RT 04/28/25 Logged 08:20 Basic Metabolic Panel LAB 04/29/25 Verified 05:00 Basic Metabolic Panel LAB 04/30/25 Verified 05:00 Basic Metabolic Panel LAB 05/01/25 Verified 05:00 Date of Service: Apr 28, 2025 Billing Provider: JAYDEN HILL NP Common Visit Codes: [id number] CARE 30-74 MIN JAYDEN HILL NP Apr 28, 2025 08:54
--- NOTE | 2025-04-28 12:08 | DVH ---
Procedure: CT CHEST WITHOUT CONTRAST Reason for study/Clinical History: Left lung collapse Comparison Study: XY CHEST PORTABLE on DOS: 04/28/25, XY CHEST PORTABLE on DOS: 04/28/25, XY CHEST PO RTABLE on DOS: 04/27/25, XY CHEST PORTABLE on DOS: 04/26/25, XY CHEST XRAY 1 VIEW on DOS: 04/26/25 TECHNIQUE: Multidetector CT of the chest was performed from the lung apices to the upper abdomen with out the use of intravenous contract. Axial, coronal and sagittal multiplanar reformats were performed . Radiation Dose Information: CT Dose: CTDI volume is 8.88 mGy. Dose-length product is 317.32 mGy*cm The dose indicators for CT are the volume Computed Tomography (CT) Dose Index (CTDIvol) and the Dose Length Product (DLP), and are measured in units of mGy and mGy-cm, respectively. These indicators are not patient dose, but values generated from the CT scanner acquisition factors. The report includes radiation exposure data for exposures received during this examination. FINDINGS: Lower neck: Nonspecific air-filled distention of the esophagus. Lungs: Multifocal left lung atelectasis. Heart/Vascular Structures: Volume loss with shifting of mediastinal structures to the left. Cardiomeg rin. Coronary artery calcifications. Vascular calcifications of the aorta. Lymph Nodes: No adenopathy Pleura: Moderate left pleural effusion. Musculoskeletal: No acute osseous abnormality. Osteopenia. Multilevel degenerative changes of the sp ine. Multilevel chronic appearing chronic to severe thoracic compression fractures. Soft tissues: Normal. Upper abdomen: Enteric catheter in the stomach. IMPRESSION: Multifocal left lung atelectasis with volume loss and shifting of mediastinal structures to the left. This appears new/ increased since CT dated 04/23/2025 and may represent a component of mucous pluggi ng. Clinical correlation advised. Moderate left pleural effusion. Nonspecific air-filled distention of the esophagus. Radiation optimization: All CT scans at this facility use at least one of these dose optimization gopi hniques: automated exposure control mA and/or kV adjustment per patient size (includes targeted exam s where dose is matched to clinical indication) or iterative reconstruction.
--- NOTE | 2025-04-28 17:29 | DVHPN2 ---
Progress Note - Dictate Date Seen: Apr 28, 2025 Medical Necessity Reason Pt with a Central, PICC or Fol: No Subjective Patient remains extubated Patient on high-flow at 50% FiO2. Reported BM yesterday evening. Left lower lung continues to have atelectasis, collapse. Chest x-ray shows whiteout of the left lung Patient is NPO with an NG-tube in place as there is concern for possible aspiration vital signs Vital Sign Date Time Temp Pulse Resp B/P (MAP) Pulse Ox O2 Delivery O2 Flow Rate FiO2 04/28/25 14:09 90 27 98 04/28/25 13:59 Oxymizer 8 N/A 04/28/25 13:45 175/52 04/27/25 20:00 97.8 97.8 Total Intake and Output 04/27/25 04/27/25 04/28/25 15:00 23:00 07:00 Intake Total 724 ml 651 ml 646 ml Output Total 2190 ml 550 ml Balance 724 ml -1539 ml 96 ml medications Current Medications Medications Dose Ordered Sig/Gregory Route Start Time Stop Time Status Last Admin Dose Admin Pantoprazole Sodium 40 mg DAILY IV 04/16/25 10:00 04/28/25 10:01 40 MG Piperacillin Sod/ Tazobactam Sod 100 ml @ 25 mls/hr Q8HR IV 04/16/25 22:00 04/28/25 14:26 25 MLS/HR Amino Acids 0 ml @ 0 mls/hr PER PHARMACY IV 04/18/25 17:45 Sodium Chloride 10 ml QSHIFT@10,22 IV 04/21/25 22:00 04/28/25 10:01 10 ML Labetalol HCl 20 mg Q2HPRN PRN IV 04/24/25 15:30 04/27/25 22:00 20 MG Albuterol 2.5 mg Q3HPRN PRN NEB 04/24/25 16:15 Lorazepam 0.25 mg Q6HP PRN IV 04/24/25 18:30 04/28/25 10:57 0.25 MG Nicardipine/ Sodium Chloride 200 ml @ 50 mls/hr Q4H IV 04/25/25 09:45 Acetylcysteine 100 mg Q4HR NEB 04/25/25 14:00 04/28/25 13:55 100 MG Ipratropium [place] 0.5 mg Q4HR NEB 04/25/25 18:00 04/28/25 13:54 0.5 MG Potassium Chloride/Dextrose/ Sod Cl 1,000 ml @ 30 mls/hr Q24H IV 04/26/25 07:00 04/27/25 23:15 30 MLS/HR Levalbuterol HCl 0.625 mg Q4HR NEB 04/26/25 10:00 04/28/25 13:54 0.625 MG Enoxaparin Sodium 40 mg DAILY SC 04/26/25 10:00 04/28/25 10:21 40 MG Fat Emulsion Intravenous 100 ml/Potassium Chloride 60 meq/ Calcium Gluconate 6.975 meq/ Magnesium Sulfate 14 meq/ Multivitamins 10 ml/Chromium/ Copper/Manganese/ Zinc 1 ml/Amino Acids/Dextrose 1,159.5 ml @ 48 mls/hr [id number] IV 04/27/25 22:00 04/28/25 21:59 04/27/25 21:07 48 MLS/HR Fat Emulsion Intravenous 100 ml/Potassium Chloride 20 meq/ Potassium Phosphate 44 meq/ Calcium Gluconate 4.65 meq/ Magnesium Sulfate 10 meq/ Multivitamins 10 ml/Chromium/ Copper/Manganese/ Zinc 1 ml/Amino Acids/Dextrose/ Purified Water 1,243.5 ml @ 52 mls/hr [id number] IV 04/28/25 22:00 04/29/25 21:59 objective General Appearance: Alert, Cooperative, no distress HEENT: PERRLA, EOMI Lungs: Decreased breath sound on left lower lung. High-flow at 50% FiO2 Cardiovascular: Normal S1, Normal S2 Abdomen: No tenderness, No hepatospenomegaly, hypoactive bowel sounds, surgical wound dry Genitourinary: No Apparent Abnormalities (Grewal catheter) Musculoskeletal: Normal sensory function, Normal motor function Extremities: No edema, Normal pulses, No tenderness/swelling laboratory and microbiology Laboratory Tests 04/28/25 03:04 Test 04/28/25 03:04 Range/Units Serum Glucose 149 H 74-106 mg/dL Problems(with codes): (1) Acute respiratory distress (2) Small bowel obstruction (3) COPD (chronic obstructive pulmonary disease) Prognosis Plan Continue IV antibiotics Patient is NPO NG tube to low intermittent suction IV Protonix Monitor labs; mild elevation in liver enzymes noted possibly related to TPN IV TPN Patient to possibly be scheduled for thoracentesis and repeat bronchoscopy as per pulmonary consult Surgical consult is also following patient closely Dietary Evaluation Review Recommendations by RD: PPN/TPN Comments: 1) Increase TPN to meet at least 75% estimated daily needs 2) Advance to cardiac diet when medically feasible 3) Follow-up with gastroenterology and neurology 4) Continue to monitor I&O, labs, and skin integrity Expected Outcomes/Goals: 1) nutrition support to meet at least 75% estimated daily needs 2) labs to improve 3) diet to advance 4) gradual wt gain 5) f/u in 2-3 days Plan discussed with: Patient, Other (ICU Nurse) JIL MCNEAL MD Apr 28, 2025 17:29
--- NOTE | 2025-04-28 17:43 | DVHPN2 ---
Progress Note Date Seen: Apr 28, 2025 Medical Necessity Reason Pt with a Central, PICC or Fol: No Objective vital signs Vital Sign Date Time Temp Pulse Resp B/P (MAP) Pulse Ox O2 Delivery O2 Flow Rate FiO2 04/28/25 14:09 90 27 98 04/28/25 13:59 Oxymizer 8 N/A 04/28/25 13:45 175/52 04/27/25 20:00 97.8 97.8 Total Intake and Output 04/27/25 04/27/25 04/28/25 15:00 23:00 07:00 Intake Total 724 ml 651 ml 646 ml Output Total 2190 ml 550 ml Balance 724 ml -1539 ml 96 ml medications Current Medications Medications Dose Ordered Sig/Gregory Route Start Time Stop Time Status Last Admin Dose Admin Pantoprazole Sodium 40 mg DAILY IV 04/16/25 10:00 04/28/25 10:01 40 MG Piperacillin Sod/ Tazobactam Sod 100 ml @ 25 mls/hr Q8HR IV 04/16/25 22:00 04/28/25 14:26 25 MLS/HR Amino Acids 0 ml @ 0 mls/hr PER PHARMACY IV 04/18/25 17:45 Sodium Chloride 10 ml QSHIFT@10,22 IV 04/21/25 22:00 04/28/25 10:01 10 ML Labetalol HCl 20 mg Q2HPRN PRN IV 04/24/25 15:30 04/27/25 22:00 20 MG Albuterol 2.5 mg Q3HPRN PRN NEB 04/24/25 16:15 Lorazepam 0.25 mg Q6HP PRN IV 04/24/25 18:30 04/28/25 10:57 0.25 MG Nicardipine/ Sodium Chloride 200 ml @ 50 mls/hr Q4H IV 04/25/25 09:45 Acetylcysteine 100 mg Q4HR NEB 04/25/25 14:00 04/28/25 13:55 100 MG Ipratropium [place] 0.5 mg Q4HR NEB 04/25/25 18:00 04/28/25 13:54 0.5 MG Potassium Chloride/Dextrose/ Sod Cl 1,000 ml @ 30 mls/hr Q24H IV 04/26/25 07:00 04/27/25 23:15 30 MLS/HR Levalbuterol HCl 0.625 mg Q4HR NEB 04/26/25 10:00 04/28/25 13:54 0.625 MG Enoxaparin Sodium 40 mg DAILY SC 04/26/25 10:00 04/28/25 10:21 40 MG Fat Emulsion Intravenous 100 ml/Potassium Chloride 60 meq/ Calcium Gluconate 6.975 meq/ Magnesium Sulfate 14 meq/ Multivitamins 10 ml/Chromium/ Copper/Manganese/ Zinc 1 ml/Amino Acids/Dextrose 1,159.5 ml @ 48 mls/hr [id number] IV 04/27/25 22:00 04/28/25 21:59 04/27/25 21:07 48 MLS/HR Fat Emulsion Intravenous 100 ml/Potassium Chloride 20 meq/ Potassium Phosphate 44 meq/ Calcium Gluconate 4.65 meq/ Magnesium Sulfate 10 meq/ Multivitamins 10 ml/Chromium/ Copper/Manganese/ Zinc 1 ml/Amino Acids/Dextrose/ Purified Water 1,243.5 ml @ 52 mls/hr [id number] IV 04/28/25 22:00 04/29/25 21:59 laboratory and microbiology Laboratory Tests 04/28/25 03:04 Test 04/28/25 03:04 Range/Units Serum Glucose 149 H 74-106 mg/dL Microbiology Date/Time Source Procedure Growth Status 04/22/25 15:28 Nose MRSA Screen - Final Complete 04/20/25 22:35 Sputum Endotracheal Wash Gram Stain - Final Complete 04/20/25 22:35 Respiratory Culture - Final Yeast, not Piedad albicans Complete Problem List/Assessment/Plan Problem List/Assessment/Plan AFEBRILE VSS BM REPORTED WOUND DRESSING DRY REMAINS EXTUBATED AND AWAKE AND RESPONSIVE WBC ELEVATED CXR LEFT LUNG WHITE OUT PULM BRONCHOSCOPY DONE CONTINUE SUPPORTIVE CARE FAMILY AWARE OF PT CONDITION NURSE AT BEDSIDE ONGOING PULM EVAL Plan discussed with: Other Dietary Evaluation Review Recommendations by RD: PPN/TPN Comments: 1) Increase TPN to meet at least 75% estimated daily needs 2) Advance to cardiac diet when medically feasible 3) Follow-up with gastroenterology and neurology 4) Continue to monitor I&O, labs, and skin integrity Expected Outcomes/Goals: 1) nutrition support to meet at least 75% estimated daily needs 2) labs to improve 3) diet to advance 4) gradual wt gain 5) f/u in 2-3 days GLORIA MCNEAL MD Apr 28, 2025 17:43
--- NOTE | 2025-04-28 19:43 | DVHPN2 ---
Subjective DOS: 04/28/2025 Patient seen and examined at bedside. Remains on supplemental oxygen Overnight events reviewed. Reviewed: Care Plan, H&P, Labs, Medications Changes from previous H/P or p: No Changes General: Per HPI Objective Vitals Vital Signs Date Time Temp Pulse Resp B/P (MAP) Pulse Ox O2 Delivery O2 Flow Rate FiO2 04/28/25 19:00 88 39 148/58 (88) 97 04/28/25 17:44 Oxymizer 10 N/A 04/28/25 16:00 98.4 98.4 Intake/Output Intake and Output 04/28/25 07:00 Intake Total 2021 ml Output Total 2740 ml Balance -719 ml Intake Oral 0 ml IV Total 2021 ml Output Urine Total 2500 ml Gastric Drainage Total 240 ml # Bowel Movements 3 General Appearance: Alert, Cooperative, mild distress HEENT: PERRLA, Other Lungs: Normal air movement, Other (Decreased breath sound on left lower lung. High-flow at 50% FiO2) Cardiovascular: Normal S1, Normal S2 Abdomen: No tenderness, No hepatospenomegaly, Other (Reported BM yesterday evening. Hypoactive bowel sounds) Genitourinary: No Apparent Abnormalities (Grewal catheter) Musculoskeletal: Normal sensory function, Normal motor function Extremities: No edema, Normal pulses, No tenderness/swelling Neuro: Other Skin: Dry, Intact, Wounds, Other (Surgical wound D&I) Psych/Mental Status: Mood NL Medications Current Medications Medications Dose Ordered Sig/Gregory Route Start Time Stop Time Status Last Admin Dose Admin Pantoprazole Sodium 40 mg DAILY IV 04/16/25 10:00 04/28/25 10:01 40 MG Piperacillin Sod/ Tazobactam Sod 100 ml @ 25 mls/hr Q8HR IV 04/16/25 22:00 04/28/25 14:26 25 MLS/HR Amino Acids 0 ml @ 0 mls/hr PER PHARMACY IV 04/18/25 17:45 Sodium Chloride 10 ml QSHIFT@,22 IV 04/21/25 22:00 04/28/25 10:01 10 ML Labetalol HCl 20 mg Q2HPRN PRN IV 04/24/25 15:30 04/27/25 22:00 20 MG Albuterol 2.5 mg Q3HPRN PRN NEB 04/24/25 16:15 Lorazepam 0.25 mg Q6HP PRN IV 04/24/25 18:30 04/28/25 10:57 0.25 MG Nicardipine/ Sodium Chloride 200 ml @ 50 mls/hr Q4H IV 04/25/25 09:45 Acetylcysteine 100 mg Q4HR [facility] 04/25/25 14:00 04/28/25 18:51 100 MG Ipratropium [place] 0.5 mg Q4HR NEB 04/25/25 18:00 04/28/25 18:51 0.5 MG Potassium Chloride/Dextrose/ Sod Cl 1,000 ml @ 30 mls/hr Q24H IV 04/26/25 07:00 04/27/25 23:15 30 MLS/HR Levalbuterol HCl 0.625 mg Q4HR [facility] 04/26/25 10:00 04/28/25 18:51 0.625 MG Enoxaparin Sodium 40 mg DAILY SC 04/26/25 10:00 04/28/25 10:21 40 MG Fat Emulsion Intravenous 100 ml/Potassium Chloride 60 meq/ Calcium Gluconate 6.975 meq/ Magnesium Sulfate 14 meq/ Multivitamins 10 ml/Chromium/ Copper/Manganese/ Zinc 1 ml/Amino Acids/Dextrose 1,159.5 ml @ 48 mls/hr [id number] IV 04/27/25 22:00 04/28/25 21:59 04/27/25 21:07 48 MLS/HR Fat Emulsion Intravenous 100 ml/Potassium Chloride 20 meq/ Potassium Phosphate 44 meq/ Calcium Gluconate 4.65 meq/ Magnesium Sulfate 10 meq/ Multivitamins 10 ml/Chromium/ Copper/Manganese/ Zinc 1 ml/Amino Acids/Dextrose/ Purified Water 1,243.5 ml @ 52 mls/hr [id number] IV 04/28/25 22:00 04/29/25 21:59 Laboratory Results Laboratory Tests 04/28/25 03:04 Chemistry Test 04/28/25 03:04 Albumin 3.7 g/dL (3.2-4.8) Calcium Level 8.7 mg/dL (8.7-10.4) Magnesium Level 2.3 mg/dL (1.6-2.6) Phosphorus Level 2.5 mg/dL (2.4-5.1) Total Protein 6.6 g/dL (5.7-8.2) LFT Test 04/28/25 03:04 Alanine Aminotransferase (ALT) 78 U/L (7-40) H Alkaline Phosphatase 114 U/L (46-116) Aspartate Amino Transferase (AST) 55 U/L (13-40) H Total Bilirubin 0.9 mg/dL (0.2-1.0) Urinalysis Test 04/15/25 15:45 Urine Color Light-orange (Yellow) Urine Clarity Ex.turbid (Clear) Urine pH 5.5 (5.0-9.0) Urine Specific [place] 1.028 (1.001-1.035) Urine Protein 1+ (Negative) H Urine Ketones Negative (Negative) Urine Blood 1+ /uL (Negative) H Urine Nitrite Negative (Negative) Urine Bilirubin Negative (Negative) Urine Urobilinogen 3 mg/dL (Negative) H Urine Leukocyte Esterase Negative /uL (Negative) Urine RBC 16 /hpf (0 - 4) Urine Microscopic WBC 1 /HPF (0-5) Urine Squamous Epithelial Cells Mod /hpf (<5) Urine Amorphous Crystals Few /hpf (None Seen) Urine Bacteria Few /hpf (None Seen) H Urine Hyaline Casts Few /lpf (0 - 2) Urine Mucus Few (None Seen) Urine Glucose Normal mg/dL (Normal) Blood Gas Results Test 04/28/25 08:18 Arterial Blood pH 7.528 (7.350-7.450) FiO2 % 40.0 Microbiology Microbiology Date/Time Source Procedure Growth Status 04/22/25 15:28 Nose MRSA Screen - Final Complete 04/20/25 22:35 Sputum Endotracheal Wash Gram Stain - Final Complete 04/20/25 22:35 Respiratory Culture - Final Yeast, not Piedad albicans Complete Assessment/Plan Assessment/Plan Impression: Acute hypoxic respiratory failure Dependence on supplemental oxygen Atelectasis Lung collapse Pneumonia Hx of nicotine dependence Cachexia, BMI 17.4 Events: Remains on supplemental oxygen Improving oxygen requirements, off high flow Currently on 6 LPM Oxymask. Continue to taper O2 as tolerated CT chest reviewed, demonstrates complete left lung collapse. Discuss repeat bronchoscopy for mucous plugging with family. If family agrees, plan for bronchoscopy. Limited chest ultrasound revealed small left pleural effusion. Obtain consent for left thoracentesis. S/p bronchoscopy on 04/26/25 with clearance of copious secretions in L1-L10. Endobronchial lesion in left mainstem bronchus, biopsied. Follow up biopsy results. Continue bronchodilators/Mucomyst CPT Continue antibiotics Incentive spirometry IV fluids with D5-1/2 NS with KCl 40 mEq. TPN for nutritional support HOB elevation Aspiration precautions Labs and imaging reviewed. Rest of plan as noted below. Plan: Supplemental oxygen Titrate to keep O2 sats above 92%. Monitor respiratory status closely d/t increased O2 requirements Continue bronchodilators. Continue antibiotics Incentive spirometry Head of bed elevation Aspiration precautions NGT in place Monitor renal function. Monitor electrolytes. Supplement as necessary. Monitor ins and outs. DVT prophylaxis. Prognosis: Poor given patient's multiple co-morbidities. Condition: Critical Rest of plan per hospitalist and other consultants. A total of 35 minutes of critical care time was spent reviewing the patient record, examining the patient, making a diagnostic and therapeutic plan, discussing this plan with the medical personnel, following up on diagnostic studies and following the patient for clinical stability excluding any and all procedures. At least 50% of this time was spent in direct, crie-of-puep contact. Thank you, JESÚS Ford, for allowing me to participate in this patient's care. Further recommendations will depend on the patient's clinical course. Please do not hesitate to contact me if you have any questions or concerns. This medical document was created using an electronic medical record system with [employer] computerized dictation system. Although these documentations are being carefully reviewed, there may still be some phonetic and typographical changes. The errors are purely typographical, due to imperfection on the software program, and do not reflect any compromise in the patient's medical care. Plan discussed with: Patient, Other (KIA Delong) Visit Coding Pulmonary Billing Provider: KARENA WESTFALL MD Date of Service if different f: Apr 28, 2025 Common Visit Codes: [id number] INP/OBS CARE(HIGH), [id number] CARE 30-74 MIN KARENA WESTFALL MD Apr 28, 2025 19:43
[2025-04-28] MEDS: TPN PER PHARMACY IV NR (20:54)
[2025-04-29] VITALS (110 sets, daily range): BP systolic 107–159; BP diastolic 48–80; PULSE 79–106; RESP 14–44; TEMP 97.9–98.6; O2SAT 90–100
[2025-04-29] MEDS: KETOROLAC TROMETH 30 MG/ML 1ML VIAL IV ONE ×2 (03:15→23:08)
--- NOTE | 2025-04-29 03:21 | DVH ---
CHEST RADIOGRAPH Indication: pna Technique: 1 view Comparison: XY CHEST PORTABLE on DOS: 04/28/25, XY CHEST PORTABLE on DOS: 04/28/25, XY CHEST PORTABLE on DOS: 04/27/25, XY CHEST PORTABLE on DOS: 04/26/25, XY CHEST XRAY 1 VIEW on DOS: 04/26/25 FINDINGS: Lines and Tubes: Alteration of enteric tube positioning, which appears redundant in the mid esophagus with side port at the level of the gastroesophageal junction. Unchanged right upper extremity PICC. Lungs/Pleura: Improved left upper lung aeration, with persistent dense mid to basilar opacity. Bilate ral increased interstitial markings remain. Cardiomediastinum: Unchanged. Other: Unchanged osseous structures. IMPRESSION: 1. Slightly improved enteric tube positioning, which appears redundant in the mid esophagus and remai ns slightly superiorly positioned in the distal esophagus. Right PICC is stable. 2. Improved left upper lung aeration. No other significant interval change.
[2025-04-29 04:05] LABS: Hematocrit 33.4 % (36.0-46.0); Hemoglobin 11.0 g/dL (12.2-16.2); Mean Corpuscular Hemoglobin 33.1 pg (28.0-32.0); Mean Corpuscular Volume 100.1 fL (80.0-100.0); Nucleated Red Blood Cells % 0.1 %
[2025-04-29 04:20] LABS: Albumin 3.4 g/dL (3.2-4.8); Anion Gap 11 (5-15); BUN/Creatinine Ratio 63.8 (10.0-20.0); Bilirubin, Total 0.8 mg/dL (0.2-1.0); Carbon Dioxide 24 mmol/L (20-31); Chloride 104 mmol/L (98-107); Magnesium 2.0 mg/dL (1.6-2.6); Potassium 4.6 mmol/L (3.5-5.1); Sodium 139 mmol/L (136-145); Total Protein 6.0 g/dL (5.7-8.2)
[2025-04-29 04:23] LABS: Alanine Aminotransferase 97 U/L (7-40); Alkaline Phosphatase 120 U/L (46-116); Blood Urea Nitrogen 30 mg/dL (9-23); Calcium 8.1 mg/dL (8.7-10.4); Glucose 164 mg/dL (74-106)
--- NOTE | 2025-04-29 08:27 | DVHPN2 ---
Subjective Patient denies any symptoms Reviewed: Care Plan, H&P, Labs, Medications Changes from previous H/P or p: No Changes General: Per HPI Objective Vitals Vital Signs Date Time Temp Pulse Resp B/P (MAP) Pulse Ox O2 Delivery O2 Flow Rate FiO2 04/29/25 07:00 85 26 131/71 (91) 100 04/29/25 06:33 Oxymizer 6 72 72 04/29/25 00:00 98.6 98.6 Intake/Output Intake and Output 04/29/25 07:00 Intake Total 1930.0 ml Output Total 950 ml Balance 980.0 ml Intake Oral 0 ml IV Total 1930.0 ml Output Urine Total 900 ml Stool Total 0 ml Gastric Drainage Total 50 ml # Bowel Movements 4 General Appearance: Alert, Cooperative, mild distress, Other (Underlying dementia) HEENT: PERRLA, Other Lungs: Other (Decreased air movement to left lung. Patient currently on Oxymizer at 6 L/min. Chest x-ray reveals left lower lobe continues to be collapse.) Cardiovascular: Normal S1, Normal S2 Abdomen: No tenderness, No hepatospenomegaly, Other (Reported BM yesterday evening. Hypoactive bowel sounds) Genitourinary: No Apparent Abnormalities (Grewal catheter) Musculoskeletal: Normal sensory function, Normal motor function Extremities: No edema, Normal pulses, No tenderness/swelling Neuro: Other Skin: Dry, Intact, Wounds, Other (Surgical wound D&I) Psych/Mental Status: Mood NL Medications Current Medications Medications Dose Ordered Sig/Gregory Route Start Time Stop Time Status Last Admin Dose Admin Pantoprazole Sodium 40 mg DAILY IV 04/16/25 10:00 04/28/25 10:01 40 MG Piperacillin Sod/ Tazobactam Sod 100 ml @ 25 mls/hr Q8HR IV 04/16/25 22:00 04/29/25 05:02 25 MLS/HR Amino Acids 0 ml @ 0 mls/hr PER PHARMACY IV 04/18/25 17:45 Sodium Chloride 10 ml QSHIFT@10,22 IV 04/21/25 22:00 04/28/25 20:51 10 ML Labetalol HCl 20 mg Q2HPRN PRN IV 04/24/25 15:30 04/27/25 22:00 20 MG Albuterol 2.5 mg Q3HPRN PRN NEB 04/24/25 16:15 Lorazepam 0.25 mg Q6HP PRN IV 04/24/25 18:30 04/28/25 10:57 0.25 MG Nicardipine/ Sodium Chloride 200 ml @ 50 mls/hr Q4H IV 04/25/25 09:45 Acetylcysteine 100 mg Q4HR NEB 04/25/25 14:00 04/29/25 06:30 100 MG Ipratropium [place] 0.5 mg Q4HR [facility] 04/25/25 18:00 04/29/25 06:30 0.5 MG Levalbuterol HCl 0.625 mg Q4HR NEB 04/26/25 10:00 04/29/25 06:30 0.625 MG Enoxaparin Sodium 40 mg DAILY SC 04/26/25 10:00 04/28/25 10:21 40 MG Fat Emulsion Intravenous 100 ml/Potassium Chloride 20 meq/ Potassium Phosphate 44 meq/ Calcium Gluconate 4.65 meq/ Magnesium Sulfate 10 meq/ Multivitamins 10 ml/Chromium/ Copper/Manganese/ Zinc 1 ml/Amino Acids/Dextrose/ Purified Water 1,243.5 ml @ 52 mls/hr [id number] IV 04/28/25 22:00 04/29/25 21:59 04/28/25 20:54 52 MLS/HR Micafungin Sodium 100 mg/Sodium Chloride 100 ml @ 100 mls/hr DAILY IV 04/29/25 10:00 Lactated Ringer's 1,000 ml @ 50 mls/hr Q20H IV 04/29/25 08:15 Laboratory Results Laboratory Tests 04/29/25 03:36 Chemistry Test 04/29/25 03:36 Albumin 3.4 g/dL (3.2-4.8) Calcium Level 8.1 mg/dL (8.7-10.4) L Magnesium Level 2.0 mg/dL (1.6-2.6) Phosphorus Level 3.3 mg/dL (2.4-5.1) Total Protein 6.0 g/dL (5.7-8.2) LFT Test 04/29/25 03:36 Alanine Aminotransferase (ALT) 97 U/L (7-40) H Alkaline Phosphatase 120 U/L (46-116) H Aspartate Amino Transferase (AST) 55 U/L (13-40) H Total Bilirubin 0.8 mg/dL (0.2-1.0) Urinalysis Test 04/15/25 15:45 Urine Color Light-orange (Yellow) Urine Clarity Ex.turbid (Clear) Urine pH 5.5 (5.0-9.0) Urine Specific [place] 1.028 (1.001-1.035) Urine Protein 1+ (Negative) H Urine Ketones Negative (Negative) Urine Blood 1+ /uL (Negative) H Urine Nitrite Negative (Negative) Urine Bilirubin Negative (Negative) Urine Urobilinogen 3 mg/dL (Negative) H Urine Leukocyte Esterase Negative /uL (Negative) Urine RBC 16 /hpf (0 - 4) Urine Microscopic WBC 1 /HPF (0-5) Urine Squamous Epithelial Cells Mod /hpf (<5) Urine Amorphous Crystals Few /hpf (None Seen) Urine Bacteria Few /hpf (None Seen) H Urine Hyaline Casts Few /lpf (0 - 2) Urine Mucus Few (None Seen) Urine Glucose Normal mg/dL (Normal) Microbiology Microbiology Date/Time Source Procedure Growth Status 04/22/25 15:28 Nose MRSA Screen - Final Complete 04/20/25 22:35 Sputum Endotracheal Wash Gram Stain - Final Complete 04/20/25 22:35 Respiratory Culture - Final Yeast, not Piedad albicans Complete Labs and/or images reviewed: Labs reviewed by me, Image(s) reviewed by me Assessment/Plan Assessment/Plan Impression: -choledocholithiasis -acute pancreatitis -small-bowel obstruction -dementia -cachexia -sepsis -COPD -GERD -Post op delirium -Accelerated HTN -A. fib Plan: Events: CT scan reviewed. Discussed findings with pulmonology. Plans for bronchoscopy today. Repeat chest x-ray today reveals left upper lobe has improved. Noted malpositioning of NG tube. Plan of care and findings were discussed with patient's stepdaughter. -continue TPN and TKO IV fluids. -stop Lasix -Pulmonology consult- case discussed -NG to LIS -Continue Zosyn -PPI -Antihypertensives -pain management -continue bronchodilators, Mucomyst -repeat labs and chest x-ray in a.m. Critical care time spent with patient discussing and formulating plan of care: 40 minutes. This does not include time spent performing procedures. This medical document was created using an electronic medical record system with [employer] system. Although this document has been carefully reviewed, there may still be some phonetic and typographical errors. These areas are purely typographical due to imperfections of the software programs, and do not reflect any compromise in the patient's medical care. Plan discussed with: Patient, Other (RN) My Orders Orders - JAYDEN HILL NP Procedure Category Date Status Time Abg W/ Co-Ox RT 04/28/25 Logged 08:20 Basic Metabolic Panel LAB 04/30/25 Verified 05:00 Basic Metabolic Panel LAB 05/01/25 Verified 05:00 Micafungin Sodium PHA 04/29/25 In Process (Mycamine) 10:00 Lactated Ringer's PHA 04/29/25 In Process 08:15 Chest Xray 1 View XY 04/30/25 Logged 05:00 Chest Xray 1 View XY 05/01/25 Logged 05:00 Chest Xray 1 View XY 05/02/25 Logged 05:00 Date of Service: Apr 29, 2025 Billing Provider: JAYDEN HILL NP Common Visit Codes: [id number] CARE 30-74 MIN JAYDEN HILL NP Apr 29, 2025 08:27
[2025-04-29] MEDS: LACTATED RINGER'S 1,000 ML IV SCH (09:21)
[2025-04-29] MEDS: MICAFUNGIN SODIUM 100 MG in SODIUM CHL 0.9% 100 ML IV SCH (10:17)
--- NOTE | 2025-04-29 13:39 | DVHPN2 ---
Progress Note Date Seen: Apr 29, 2025 Medical Necessity Reason Pt with a Central, PICC or Fol: No Objective vital signs Vital Sign Date Time Temp Pulse Resp B/P (MAP) Pulse Ox O2 Delivery O2 Flow Rate FiO2 04/29/25 12:15 89 27 144/63 (90) 90 04/29/25 12:00 Oxymizer 6 N/A 04/29/25 12:00 98.3 98.3 Total Intake and Output 04/28/25 04/28/25 04/29/25 15:00 23:00 07:00 Intake Total 661.5 ml 694.5 ml 656 ml Output Total 0 ml 550 ml 400 ml Balance 661.5 ml 144.5 ml 256 ml medications Current Medications Medications Dose Ordered Sig/Gregory Route Start Time Stop Time Status Last Admin Dose Admin Pantoprazole Sodium 40 mg DAILY IV 04/16/25 10:00 04/29/25 10:17 40 MG Piperacillin Sod/ Tazobactam Sod 100 ml @ 25 mls/hr Q8HR IV 04/16/25 22:00 04/29/25 05:02 25 MLS/HR Amino Acids 0 ml @ 0 mls/hr PER PHARMACY IV 04/18/25 17:45 Sodium Chloride 10 ml QSHIFT@10,22 IV 04/21/25 22:00 04/29/25 10:19 10 ML Labetalol HCl 20 mg Q2HPRN PRN IV 04/24/25 15:30 04/27/25 22:00 20 MG Albuterol 2.5 mg Q3HPRN PRN NEB 04/24/25 16:15 Lorazepam 0.25 mg Q6HP PRN IV 04/24/25 18:30 04/28/25 10:57 0.25 MG Nicardipine/ Sodium Chloride 200 ml @ 50 mls/hr Q4H IV 04/25/25 09:45 Acetylcysteine 100 mg Q4HR NEB 04/25/25 14:00 04/29/25 09:37 100 MG Ipratropium [place] 0.5 mg Q4HR NEB 04/25/25 18:00 04/29/25 09:37 0.5 MG Levalbuterol HCl 0.625 mg Q4HR NEB 04/26/25 10:00 04/29/25 09:37 0.625 MG Enoxaparin Sodium 40 mg DAILY SC 04/26/25 10:00 04/29/25 10:18 40 MG Fat Emulsion Intravenous 100 ml/Potassium Chloride 20 meq/ Potassium Phosphate 44 meq/ Calcium Gluconate 4.65 meq/ Magnesium Sulfate 10 meq/ Multivitamins 10 ml/Chromium/ Copper/Manganese/ Zinc 1 ml/Amino Acids/Dextrose/ Purified Water 1,243.5 ml @ 52 mls/hr [id number] IV 04/28/25 22:00 04/29/25 21:59 04/28/25 20:54 52 MLS/HR Micafungin Sodium 100 mg/Sodium Chloride 100 ml @ 100 mls/hr DAILY IV 04/29/25 10:00 04/29/25 10:17 100 MLS/HR Lactated Ringer's 1,000 ml @ 50 mls/hr Q20H IV 04/29/25 08:15 04/29/25 09:21 50 MLS/HR Fat Emulsion Intravenous 100 ml/Sodium Phosphate 40 meq/ Potassium Chloride 20 meq/ Calcium Gluconate 6.975 meq/ Magnesium Sulfate 12 meq/ Multivitamins 10 ml/Chromium/ Copper/Manganese/ Zinc 1 ml/Amino Acids/Dextrose/ Purified Water 1,299 ml @ 54 mls/hr Q24H4M IV 04/29/25 22:00 04/30/25 21:59 laboratory and microbiology Laboratory Tests 04/29/25 03:36 Test 04/29/25 03:36 Range/Units Serum Glucose 164 H 74-106 mg/dL Microbiology Date/Time Source Procedure Growth Status 04/22/25 15:28 Nose MRSA Screen - Final Complete 04/20/25 22:35 Sputum Endotracheal Wash Gram Stain - Final Complete 04/20/25 22:35 Respiratory Culture - Final Yeast, not Piedad albicans Complete Problem List/Assessment/Plan Problem List/Assessment/Plan AFEBRILE VSS BM REPORTED WOUND DRESSING DRY REMAINS EXTUBATED AND AWAKE AND RESPONSIVE CXR LEFT LUNG WHITE OUT SAME PULM REPEAT BRONCHOSCOPY L THORACENTESIS PENDING CONTINUE SUPPORTIVE CARE FAMILY AWARE OF PT CONDITION NURSE AT BEDSIDE ONGOING PULM EVAL Plan discussed with: Other Dietary Evaluation Review Recommendations by RD: PPN/TPN Comments: 1) Increase TPN to meet at least 75% estimated daily needs 2) Advance to cardiac diet when medically feasible 3) Follow-up with gastroenterology and neurology 4) Continue to monitor I&O, labs, and skin integrity Expected Outcomes/Goals: 1) nutrition support to meet at least 75% estimated daily needs 2) labs to improve 3) diet to advance 4) gradual wt gain 5) f/u in 2-3 days GLORIA MCNEAL MD Apr 29, 2025 13:38
[2025-04-29] MEDS: TPN PER PHARMACY IV NR (22:44)
--- NOTE | 2025-04-29 23:05 | DVHPN2 ---
Subjective DOS: 04/29/2025 Patient seen and examined at bedside. Remains on supplemental oxygen Overnight events reviewed. Reviewed: Care Plan, H&P, Labs, Medications Changes from previous H/P or p: No Changes General: Per HPI Objective Vitals Vital Signs Date Time Temp Pulse Resp B/P (MAP) Pulse Ox O2 Delivery O2 Flow Rate FiO2 04/29/25 22:20 97 26 100 04/29/25 22:10 Oxymizer 6 N/A 04/29/25 19:30 04/29/25 16:00 98.3 98.3 Intake/Output Intake and Output 04/29/25 07:00 Intake Total 2012.0 ml Output Total 950 ml Balance 1062.0 ml Intake Oral 0 ml IV Total 2012.0 ml Output Urine Total 900 ml Stool Total 0 ml Gastric Drainage Total 50 ml # Bowel Movements 4 General Appearance: Alert, Cooperative, mild distress, Other (Underlying dementia) HEENT: PERRLA, Other Lungs: Other (Decreased air movement. Patient currently on Oxymizer at 6 L/min. Chest x-ray reveals improved aeration of REMY.) Cardiovascular: Normal S1, Normal S2 Abdomen: No tenderness, No hepatospenomegaly, Other (Reported BM yesterday evening. Hypoactive bowel sounds) Genitourinary: No Apparent Abnormalities (Grewal catheter) Musculoskeletal: Normal sensory function, Normal motor function Extremities: No edema, Normal pulses, No tenderness/swelling Neuro: Other Skin: Dry, Intact, Wounds, Other (Surgical wound D&I) Psych/Mental Status: Mood NL Medications Current Medications Medications Dose Ordered Sig/Gregory Route Start Time Stop Time Status Last Admin Dose Admin Pantoprazole Sodium 40 mg DAILY IV 04/16/25 10:00 04/29/25 10:17 40 MG Piperacillin Sod/ Tazobactam Sod 100 ml @ 25 mls/hr Q8HR IV 04/16/25 22:00 04/29/25 22:00 25 MLS/HR Amino Acids 0 ml @ 0 mls/hr PER PHARMACY IV 04/18/25 17:45 Sodium Chloride 10 ml QSHIFT@10,22 IV 04/21/25 22:00 04/29/25 22:00 10 ML Labetalol HCl 20 mg Q2HPRN PRN IV 04/24/25 15:30 04/27/25 22:00 20 MG Albuterol 2.5 mg Q3HPRN PRN NEB 04/24/25 16:15 Lorazepam 0.25 mg Q6HP PRN IV 04/24/25 18:30 04/28/25 10:57 0.25 MG Nicardipine/ Sodium Chloride 200 ml @ 50 mls/hr Q4H IV 04/25/25 09:45 Acetylcysteine 100 mg Q4HR NEB 04/25/25 14:00 04/29/25 22:10 100 MG Ipratropium [place] 0.5 mg Q4HR NEB 04/25/25 18:00 04/29/25 22:10 0.5 MG Levalbuterol HCl 0.625 mg Q4HR NEB 04/26/25 10:00 04/29/25 22:10 0.625 MG Enoxaparin Sodium 40 mg DAILY SC 04/26/25 10:00 04/29/25 10:18 40 MG Micafungin Sodium 100 mg/Sodium Chloride 100 ml @ 100 mls/hr DAILY IV 04/29/25 10:00 04/29/25 10:17 100 MLS/HR Lactated Ringer's 1,000 ml @ 50 mls/hr Q20H IV 04/29/25 08:15 04/29/25 09:21 50 MLS/HR Fat Emulsion Intravenous 100 ml/Sodium Phosphate 40 meq/ Potassium Chloride 20 meq/ Calcium Gluconate 6.975 meq/ Magnesium Sulfate 12 meq/ Multivitamins 10 ml/Chromium/ Copper/Manganese/ Zinc 1 ml/Amino Acids/Dextrose/ Purified Water 1,299 ml @ 54 mls/hr Q24H4M IV 04/29/25 22:00 04/30/25 21:59 04/29/25 22:44 54 MLS/HR Laboratory Results Laboratory Tests 04/29/25 03:36 Chemistry Test 04/29/25 03:36 Albumin 3.4 g/dL (3.2-4.8) Calcium Level 8.1 mg/dL (8.7-10.4) L Magnesium Level 2.0 mg/dL (1.6-2.6) Phosphorus Level 3.3 mg/dL (2.4-5.1) Total Protein 6.0 g/dL (5.7-8.2) LFT Test 04/29/25 03:36 Alanine Aminotransferase (ALT) 97 U/L (7-40) H Alkaline Phosphatase 120 U/L (46-116) H Aspartate Amino Transferase (AST) 55 U/L (13-40) H Total Bilirubin 0.8 mg/dL (0.2-1.0) Urinalysis Test 04/15/25 15:45 Urine Color Light-orange (Yellow) Urine Clarity Ex.turbid (Clear) Urine pH 5.5 (5.0-9.0) Urine Specific [place] 1.028 (1.001-1.035) Urine Protein 1+ (Negative) H Urine Ketones Negative (Negative) Urine Blood 1+ /uL (Negative) H Urine Nitrite Negative (Negative) Urine Bilirubin Negative (Negative) Urine Urobilinogen 3 mg/dL (Negative) H Urine Leukocyte Esterase Negative /uL (Negative) Urine RBC 16 /hpf (0 - 4) Urine Microscopic WBC 1 /HPF (0-5) Urine Squamous Epithelial Cells Mod /hpf (<5) Urine Amorphous Crystals Few /hpf (None Seen) Urine Bacteria Few /hpf (None Seen) H Urine Hyaline Casts Few /lpf (0 - 2) Urine Mucus Few (None Seen) Urine Glucose Normal mg/dL (Normal) Microbiology Microbiology Date/Time Source Procedure Growth Status 04/22/25 15:28 Nose MRSA Screen - Final Complete 04/20/25 22:35 Sputum Endotracheal Wash Gram Stain - Final Complete 04/20/25 22:35 Respiratory Culture - Final Yeast, not Piedad albicans Complete Assessment/Plan Assessment/Plan Impression: Acute hypoxic respiratory failure Dependence on supplemental oxygen Atelectasis Lung collapse Pneumonia Hx of nicotine dependence Cachexia, BMI 17.4 Events: Remains on supplemental oxygen Currently on 6 LPM Oxymizer. Continue to taper O2 as tolerated CT chest reviewed, demonstrates improved aeration of left upper lobe Plan for repeat bronchoscopy for mucous plugging. Limited chest ultrasound revealed small left pleural effusion. Left thoracentesis pending. Obtain chest x-ray in AM to assess for interval changes. Reassess in AM for both chest x-ray and bronchoscopy. S/p bronchoscopy on 04/26/25 with clearance of copious secretions in L1-L10. Endobronchial lesion in left mainstem bronchus, biopsied. Follow up biopsy results. Continue bronchodilators/Mucomyst CPT Continue antibiotics Incentive spirometry IV fluids with D5-1/2 NS with KCl 40 mEq. TPN for nutritional support HOB elevation Aspiration precautions Labs and imaging reviewed. Rest of plan as noted below. Plan: Supplemental oxygen Titrate to keep O2 sats above 92%. Monitor respiratory status closely d/t increased O2 requirements Continue bronchodilators. Continue antibiotics Incentive spirometry Head of bed elevation Aspiration precautions NGT in place Monitor renal function. Monitor electrolytes. Supplement as necessary. Monitor ins and outs. DVT prophylaxis. Prognosis: Poor given patient's multiple co-morbidities. Condition: Critical Rest of plan per hospitalist and other consultants. A total of 35 minutes of critical care time was spent reviewing the patient record, examining the patient, making a diagnostic and therapeutic plan, discussing this plan with the medical personnel, following up on diagnostic studies and following the patient for clinical stability excluding any and all procedures. At least 50% of this time was spent in direct, [id number] contact. Thank you, JESÚS Ford, for allowing me to participate in this patient's care. Further recommendations will depend on the patient's clinical course. Please do not hesitate to contact me if you have any questions or concerns. This medical document was created using an electronic medical record system with [employer] dictation system. Although these documentations are being carefully reviewed, there may still be some phonetic and typographical changes. The errors are purely typographical, due to imperfection on the software program, and do not reflect any compromise in the patient's medical care. Plan discussed with: Patient, Other (KIA Ramsey) Visit Coding Pulmonary Billing Provider: KARENA WESTFALL MD Date of Service if different f: Apr 29, 2025 Common Visit Codes: [id number] INP/OBS CARE(HIGH), [id number] CARE 30-74 MIN KARENA WESTFALL MD Apr 29, 2025 23:05
[2025-04-30] VITALS (115 sets, daily range): BP systolic 100–161; BP diastolic 34–106; PULSE 75–115; RESP 13–42; TEMP 98–99.4; O2SAT 84–100
[2025-04-30 04:47] LABS: Hematocrit 31.1 % (36.0-46.0); Hemoglobin 10.5 g/dL (12.2-16.2); Mean Corpuscular Hemoglobin 33.7 pg (28.0-32.0); Mean Corpuscular Volume 100.2 fL (80.0-100.0); Nucleated Red Blood Cells % 0.0 %
--- NOTE | 2025-04-30 05:06 | DVH ---
CHEST RADIOGRAPH Indication: aspiration pna Technique: 2 frontal views Comparison: XY CHEST PORTABLE on DOS: 04/29/25, XY CHEST PORTABLE on DOS: 04/28/25, XY CHEST PORTABLE on DOS: 04/28/25, XY CHEST PORTABLE on DOS: 04/27/25, XY CHEST PORTABLE on DOS: 04/26/25 FINDINGS: Lines and Tubes: Slightly repositioned enteric tube with decreased redundancy in the mid esophagus. Side port projects over the right heart. Unchanged right upper extremity PICC. Lungs/Pleura: Unchanged. Cardiomediastinum: Unchanged. Other: Unchanged osseous structures. IMPRESSION: 1. Intervally repositioned enteric tube, side port remaining over the distal esophagus. 10 cm advance ment recommended. 2. No significant change in cardiopulmonary findings from the previous day. Persistent left pleural e ffusion and basilar airspace disease, with cardiomegaly.
[2025-04-30 05:13] LABS: Albumin 3.2 g/dL (3.2-4.8); Alkaline Phosphatase 100 U/L (46-116); Anion Gap 10 (5-15); BUN/Creatinine Ratio 72.7 (10.0-20.0); Bilirubin, Total 0.6 mg/dL (0.2-1.0); Carbon Dioxide 25 mmol/L (20-31); Chloride 106 mmol/L (98-107); Magnesium 2.0 mg/dL (1.6-2.6); Potassium 3.9 mmol/L (3.5-5.1); Sodium 141 mmol/L (136-145)
[2025-04-30 05:14] LABS: Alanine Aminotransferase 70 U/L (7-40); Blood Urea Nitrogen 32 mg/dL (9-23); Calcium 8.1 mg/dL (8.7-10.4); Glucose 117 mg/dL (74-106); Total Protein 5.7 g/dL (5.7-8.2)
--- NOTE | 2025-04-30 08:55 | DVHPN2 ---
Subjective Patient denies any symptoms Reviewed: Care Plan, H&P, Labs, Medications Changes from previous H/P or p: No Changes General: Per HPI Objective Vitals Vital Signs Date Time Temp Pulse Resp B/P (MAP) Pulse Ox O2 Delivery O2 Flow Rate FiO2 04/30/25 08:18 144/59 04/30/25 06:49 93 20 100 04/30/25 06:39 Oxymizer 4 N/A 04/30/25 04:00 98.3 98.3 Intake/Output Intake and Output 04/30/25 07:00 Intake Total 2484.5 ml Output Total 3075 ml Balance -590.5 ml Intake Oral 0 ml IV Total 2484.5 ml Output Urine Total 1075 ml Stool Total 0 ml Gastric Drainage Total 2000 ml # Bowel Movements 1 General Appearance: Alert, Cooperative, mild distress, Other (Underlying dementia) HEENT: PERRLA, Other Lungs: Other (Decreased air movement. Patient currently on Oxymizer at 6 L/min. Chest x-ray reveals improved aeration of REMY.) Cardiovascular: Normal S1, Normal S2 Abdomen: No tenderness, No hepatospenomegaly, Other (Reported BM yesterday evening. Hypoactive bowel sounds) Genitourinary: No Apparent Abnormalities (Grewal catheter) Musculoskeletal: Normal sensory function, Normal motor function Extremities: No edema, Normal pulses, No tenderness/swelling Neuro: Other Skin: Dry, Intact, Wounds, Other (Surgical wound D&I) Psych/Mental Status: Mood NL Medications Current Medications Medications Dose Ordered Sig/Gregory Route Start Time Stop Time Status Last Admin Dose Admin Pantoprazole Sodium 40 mg DAILY IV 04/16/25 10:00 04/29/25 10:17 40 MG Piperacillin Sod/ Tazobactam Sod 100 ml @ 25 mls/hr Q8HR IV 04/16/25 22:00 04/30/25 05:48 25 MLS/HR Amino Acids 0 ml @ 0 mls/hr PER PHARMACY IV 04/18/25 17:45 Sodium Chloride 10 ml QSHIFT@10,22 IV 04/21/25 22:00 04/29/25 22:00 10 ML Labetalol HCl 20 mg Q2HPRN PRN IV 04/24/25 15:30 04/27/25 22:00 20 MG Albuterol 2.5 mg Q3HPRN PRN NEB 04/24/25 16:15 Lorazepam 0.25 mg Q6HP PRN IV 04/24/25 18:30 04/30/25 01:38 0.25 MG Nicardipine/ Sodium Chloride 200 ml @ 50 mls/hr Q4H IV 04/25/25 09:45 Acetylcysteine 100 mg Q4HR NEB 04/25/25 14:00 04/30/25 06:40 100 MG Ipratropium [place] 0.5 mg Q4HR NEB 04/25/25 18:00 04/30/25 06:39 0.5 MG Levalbuterol HCl 0.625 mg Q4HR NEB 04/26/25 10:00 04/30/25 06:39 0.625 MG Enoxaparin Sodium 40 mg DAILY SC 04/26/25 10:00 04/29/25 10:18 40 MG Micafungin Sodium 100 mg/Sodium Chloride 100 ml @ 100 mls/hr DAILY IV 04/29/25 10:00 04/29/25 10:17 100 MLS/HR Lactated Ringer's 1,000 ml @ 50 mls/hr Q20H IV 04/29/25 08:15 04/30/25 04:15 50 MLS/HR Fat Emulsion Intravenous 100 ml/Sodium Phosphate 40 meq/ Potassium Chloride 20 meq/ Calcium Gluconate 6.975 meq/ Magnesium Sulfate 12 meq/ Multivitamins 10 ml/Chromium/ Copper/Manganese/ Zinc 1 ml/Amino Acids/Dextrose/ Purified Water 1,299 ml @ 54 mls/hr Q24H4M IV 04/29/25 22:00 04/30/25 21:59 04/29/25 22:44 54 MLS/HR Laboratory Results Laboratory Tests 04/30/25 04:27 Chemistry Test 04/30/25 04:27 Albumin 3.2 g/dL (3.2-4.8) Calcium Level 8.1 mg/dL (8.7-10.4) L Magnesium Level 2.0 mg/dL (1.6-2.6) Phosphorus Level 3.6 mg/dL (2.4-5.1) Total Protein 5.7 g/dL (5.7-8.2) LFT Test 04/30/25 04:27 Alanine Aminotransferase (ALT) 70 U/L (7-40) H Alkaline Phosphatase 100 U/L (46-116) Aspartate Amino Transferase (AST) 29 U/L (13-40) Total Bilirubin 0.6 mg/dL (0.2-1.0) Urinalysis Test 04/15/25 15:45 Urine Color Light-orange (Yellow) Urine Clarity Ex.turbid (Clear) Urine pH 5.5 (5.0-9.0) Urine Specific [place] 1.028 (1.001-1.035) Urine Protein 1+ (Negative) H Urine Ketones Negative (Negative) Urine Blood 1+ /uL (Negative) H Urine Nitrite Negative (Negative) Urine Bilirubin Negative (Negative) Urine Urobilinogen 3 mg/dL (Negative) H Urine Leukocyte Esterase Negative /uL (Negative) Urine RBC 16 /hpf (0 - 4) Urine Microscopic WBC 1 /HPF (0-5) Urine Squamous Epithelial Cells Mod /hpf (<5) Urine Amorphous Crystals Few /hpf (None Seen) Urine Bacteria Few /hpf (None Seen) H Urine Hyaline Casts Few /lpf (0 - 2) Urine Mucus Few (None Seen) Urine Glucose Normal mg/dL (Normal) Microbiology Microbiology Date/Time Source Procedure Growth Status 04/22/25 15:28 Nose MRSA Screen - Final Complete 04/20/25 22:35 Sputum Endotracheal Wash Gram Stain - Final Complete 04/20/25 22:35 Respiratory Culture - Final Yeast, not Piedad albicans Complete Labs and/or images reviewed: Labs reviewed by me, Image(s) reviewed by me Assessment/Plan Assessment/Plan Impression: -choledocholithiasis -acute pancreatitis -small-bowel obstruction -dementia -cachexia -sepsis -COPD -GERD -Post op delirium -Accelerated HTN -A. fib Plan: Events: No events overnight. Oxymizer at 4 L/min. AFib under control. Chest x-ray reveals left lung collapse has improved.? Left pleural effusion.? Bronchoscopy/thoracentesis today. Patient has bowel sounds, positive BM. Address possible institution of clear liquid diet by surgery -continue TPN and TKO IV fluids. -Pulmonology consult- case discussed -NG to LIS -Continue Zosyn, micafungin -PPI -Antihypertensives -pain management -continue bronchodilators, Mucomyst -repeat labs and chest x-ray in a.m. Critical care time spent with patient discussing and formulating plan of care: 40 minutes. This does not include time spent performing procedures. This medical document was created using an electronic medical record system with [employer] computerized dictation system. Although this document has been carefully reviewed, there may still be some phonetic and typographical errors. These areas are purely typographical due to imperfections of the software programs, and do not reflect any compromise in the patient's medical care. Plan discussed with: Patient, Other (RN) Date of Service: Apr 30, 2025 Billing Provider: JAYDEN HILL NP Common Visit Codes: [id number] CARE 30-74 MIN JAYDEN HILL NP Apr 30, 2025 08:55
[2025-04-30] MEDS: LIDOCAINE 5% TOPICAL PATCH TOP SCH (10:55)
[2025-04-30] MEDS: MORPHINE SULFATE INJ 2 MG/ml SYRG IV PRN (10:57)
[2025-04-30] MEDS: ACCU-CHEK COMFORT CURVE STRIP VI SCH (12:00)
[2025-04-30] MEDS: InsuLIN REG 1unit/0.01ml Soln (100units/ml) SC SCH (12:00)
[2025-04-30] MEDS: METOPROLOL TARTRATE 1MG/1ML-5ML VIAL IV ONE (12:01)
[2025-04-30] MEDS: diphenhydrAMINE HCL 50 MG/1 ML VL ONE (13:05)
[2025-04-30] MEDS: GLYCOPYRROLATE 0.2 MG/ML 1ML VIAL ONE (13:06)
[2025-04-30] MEDS: MIDAZOLAM HCL 2MG/2ML 2ml VIAL (1mg/ml) ONE (13:06)
[2025-04-30] MEDS: fentaNYL CITRATE 100 MCG/2 ML VL ONE (13:06)
--- NOTE | 2025-04-30 13:29 | DVHPN2 ---
Progress Note Date Seen: Apr 30, 2025 Resident Creating Document: JHJorge AJHOLLY Mccann RESIDENT Medical Necessity Reason Pt with a Central, PICC or Fol: No Subjective Review of Systems Patient seen and examined at the bedside NG due suction about 1800 mL over night dark-colored fluid, about 300 mL during the dayshift till the afternoon Patient continues to be NPO and on TPN H&H is stable Patient will undergo bronchoscopy today Objective vital signs Vital Sign Date Time Temp Pulse Resp B/P (MAP) Pulse Ox O2 Delivery O2 Flow Rate FiO2 04/30/25 12:01 108 141/56 04/30/25 11:27 30 04/30/25 10:30 100 04/30/25 08:00 Oxymizer 4 N/A 04/30/25 08:00 98.0 98.0 Total Intake and Output 04/29/25 04/29/25 04/30/25 15:00 23:00 07:00 Intake Total 856 ml 825.5 ml 932 ml Output Total 0 ml 2675 ml 400 ml Balance 856 ml -1849.5 ml 532 ml medications Current Medications Medications Dose Ordered Sig/Gregory Route Start Time Stop Time Status Last Admin Dose Admin Pantoprazole Sodium 40 mg DAILY IV 04/16/25 10:00 04/30/25 09:58 40 MG Piperacillin Sod/ Tazobactam Sod 100 ml @ 25 mls/hr Q8HR IV 04/16/25 22:00 04/30/25 05:48 25 MLS/HR Amino Acids 0 ml @ 0 mls/hr PER PHARMACY IV 04/18/25 17:45 Sodium Chloride 10 ml QSHIFT@10,22 IV 04/21/25 22:00 04/30/25 09:57 10 ML Labetalol HCl 20 mg Q2HPRN PRN IV 04/24/25 15:30 04/27/25 22:00 20 MG Albuterol 2.5 mg Q3HPRN PRN NEB 04/24/25 16:15 Lorazepam 0.25 mg Q6HP PRN IV 04/24/25 18:30 04/30/25 01:38 0.25 MG Nicardipine/ Sodium Chloride 200 ml @ 50 mls/hr Q4H IV 04/25/25 09:45 Acetylcysteine 100 mg Q4HR NEB 04/25/25 14:00 04/30/25 10:30 100 MG Ipratropium [place] 0.5 mg Q4HR NEB 04/25/25 18:00 04/30/25 10:29 0.5 MG Levalbuterol HCl 0.625 mg Q4HR NEB 04/26/25 10:00 04/30/25 10:29 0.625 MG Enoxaparin Sodium 40 mg DAILY SC 04/26/25 10:00 04/30/25 09:58 40 MG Micafungin Sodium 100 mg/Sodium Chloride 100 ml @ 100 mls/hr DAILY IV 04/29/25 10:00 04/30/25 09:57 100 MLS/HR Lactated Ringer's 1,000 ml @ 50 mls/hr Q20H IV 04/29/25 08:15 04/30/25 04:15 50 MLS/HR Fat Emulsion Intravenous 100 ml/Sodium Phosphate 40 meq/ Potassium Chloride 20 meq/ Calcium Gluconate 6.975 meq/ Magnesium Sulfate 12 meq/ Multivitamins 10 ml/Chromium/ Copper/Manganese/ Zinc 1 ml/Amino Acids/Dextrose/ Purified Water 1,299 ml @ 54 mls/hr Q24H4M IV 04/29/25 22:00 04/30/25 21:59 04/29/25 22:44 54 MLS/HR Diagnostic Test (Pha) 1 strip Q6HR 04/30/25 12:00 04/30/25 12:00 1 STRIP Insulin Human Regular FOLLOW SLIDING SCALE Q6HR SC 04/30/25 12:00 Dextrose 50 ml UD IV 04/30/25 09:00 Fat Emulsion Intravenous 100 ml/Sodium Phosphate 40 meq/ Potassium Acetate 60 meq/Calcium Gluconate 6.975 meq/Magnesium Sulfate 12 meq/ Multivitamins 10 ml/Chromium/ Copper/Manganese/ Zinc 1 ml/Amino Acids/Dextrose/ Purified Water 1,369 ml @ 57 mls/hr Q24H2M IV 04/30/25 22:00 05/01/25 21:59 Lidocaine 1 patch DAILY TOP 04/30/25 10:30 04/30/25 10:55 1 PATCH Morphine Sulfate 1 mg Q6HP PRN IV 04/30/25 10:30 04/30/25 10:57 1 MG Metoprolol Tartrate 2.5 mg Q4HR PRN IV 04/30/25 11:30 Examination Gen - no pallor, no scleral icterus Skin - Patients skin is warm and dry. HEENT - normocephalic, atraumatic, dry mucous membranes. Neck - supple, no lymphadenopathy Pulmonary - very diminished breath sounds in the left side, right side sounds without any crackles or wheezing cardiovascular - regular S1,S2 heard GI - soft abdomen status post exploratory laparotomy midline incision covered in a sterile dressing. Bowel sounds hypoactive. 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 Cui Plan discussed with: Patient, Other ([facility] Roll[place]) Dietary Evaluation Review Recommendations by RD: PPN/TPN Comments: 1) Increase TPN to meet at least 75% estimated daily needs 2) Advance to cardiac diet when medically feasible 3) Follow-up with gastroenterology and neurology 4) Continue to monitor I&O, labs, and skin integrity Expected Outcomes/Goals: 1) nutrition support to meet at least 75% estimated daily needs 2) labs to improve 3) diet to advance 4) gradual wt gain 5) f/u in 2-3 days HOLLY DEAN RESIDENT Apr 30, 2025 13:29
[2025-04-30] MEDS: diphenhydrAMINE HCL 50 MG/1 ML VL IV ONE (13:30)
[2025-04-30] MEDS: fentaNYL CITRATE 100 MCG/2 ML VL IV ONE (13:30)
[2025-04-30] MEDS: MIDAZOLAM HCL 2MG/2ML 2ml VIAL (1mg/ml) IV ONE (13:30)
--- NOTE | 2025-04-30 15:15 | DVH ---
CHEST RADIOGRAPH Indication: POST LEFT SIDE THORACENTESIS Technique: Single frontal view of the chest was obtained COMPARISON: XY CHEST XRAY 1 VIEW on DOS: 04/30/25, XY CHEST PORTABLE on DOS: 04/29/25, XY CHEST GRACIE BLE on DOS: 04/28/25, XY CHEST PORTABLE on DOS: 04/28/25, XY CHEST PORTABLE on DOS: 04/27/25 FINDINGS: Lines and Tubes: Enteric catheter is redundant/ coiled within the midesophagus with the tip overlying the stomach. Lungs: Multifocal airspace disease. Pleura: Small left pleural effusion. No pneumothorax. Cardiomediastinal contours: Unremarkable Bones: Unremarkable IMPRESSION: Enteric catheter is redundant/ coiled within the midesophagus with the tip overlying the stomach. Repositioning could be considered. Multifocal airspace disease. Small left pleural effusion. No appreciable pneumothorax.
--- NOTE | 2025-04-30 15:27 | DVHNC2 ---
Procedure - Bronchoscopy procedure note: Indications: Lung collapse atelectasis, Possible mucous plugging. Medicines: See RN notes. Complications: None Procedure: Patient medications and allergies reviewed. The risks and benefits of the procedure and the sedation options and risk were discussed with the patient's healthcare proxy. All questions were answered and informed consent was obtained. Patient identification and proposed procedure were verified prior to the procedure by the physician, and a nurse, and the respiratory therapist in ICU room. The heart rate, respiratory rate, oxygen saturations, blood pressure, adequacy of pulmonary ventilation, and response to care were monitored throughout the procedure. The physical status of the patient was reassessed after the procedure. After obtaining informed consent, the bronchoscope was introduced through the oropharynx past the vocal cords and advanced into the trachea bronchial tree of both lungs. The procedure was accomplished without difficulty. The patient tolerated the procedure well. Findings: The trachea is in normal caliber. The choco is sharp. The tracheobronchial tree of the right lung was examined to at least the first subsegmental level. The bronchial mucosa and anatomy in the right lung are normal. There are no endobronchial lesions. There were scant secretions throughout R1-R10. These were cleared. The left upper lobe, lingula, and left lower lobe were examined to at least the first subsegmental level. Bronchial mucosa and anatomy in the left upper lobe and lingula are normal. There were no endobronchial lesions. There was copious whitish secretions from left main stem bronchus onward throughout L1-L10. Mucous plugging removed from L1-L10. There was no active bleeding at the completion of the procedure. Estimated blood loss: Less than 5 mL. Impression: Left upper, lower lobe atelectasis due to mucous plugging Mucous plugging from L1-L10 Recommendation: Pulmonary toileting Procedure codes: 61976, bronchoscopy, rigid and flexible, including fluoroscopic guidance, one performed; with bronchial endobronchial removal of mucous plugging, single or multiple sites Visit Coding Pulmonary Billing Provider: KARENA WESTFALL MD Date of Service if different f: Apr 26, 2025 Common Visit Codes: PROCEDURE ONLY Procedure Codes: [id number] KARENA WESTFALL MD Apr 30, 2025 15:27
--- NOTE | 2025-04-30 15:29 | DVHNC2 ---
Procedure - Bronchoscopy procedure note: Indications: Left lower lobe atelectasis, Possible mucous plugging. Medicines: See SPECIAL EVENTS MANAGER notes. Complications: None Procedure: Patient medications and allergies reviewed. The risks and benefits of the procedure and the sedation options and risk were discussed with the patient's healthcare proxy. All questions were answered and informed consent was obtained. Patient identification and proposed procedure were verified prior to the procedure by the physician, and a nurse, and the respiratory therapist in ICU room. The heart rate, respiratory rate, oxygen saturations, blood pressure, adequacy of pulmonary ventilation, and response to care were monitored throughout the procedure. The physical status of the patient was reassessed after the procedure. After obtaining informed consent, the bronchoscope was introduced through the oropharynx past the vocal cords and advanced into the trachea bronchial tree of both lungs. The procedure was accomplished without difficulty. The patient tolerated the procedure well. Findings: The trachea is in normal caliber. The choco is sharp. The tracheobronchial tree of the right lung was examined to at least the first subsegmental level. The bronchial mucosa and anatomy in the right lung are normal. There are no endobronchial lesions. There was scant secretions from right main stem bronchus onward throughout R1-R10. These were cleared. The left upper lobe, lingula, and left lower lobe were examined to at least the first subsegmental level. Bronchial mucosa and anatomy in the left upper lobe and lingula are normal. There were no endobronchial lesions. There was copious whitish secretions from left main stem bronchus onward throughout L6-L10. Mucous plugging removed from L6-L10. These were cleared with 20 mL of normal saline. There was no active bleeding at the completion of the procedure. Estimated blood loss: Less than 5 mL. Impression: Left lower lobe atelectasis due to mucous plugging Mucous plugging from L6-L10 Recommendation: Pulmonary toileting Procedure codes: 75476, bronchoscopy, rigid and flexible, including fluoroscopic guidance, one performed; with bronchial endobronchial removal of mucous plugging, single or multiple sites Visit Coding Pulmonary Billing Provider: KARENA WESTFALL MD Date of Service if different f: Apr 30, 2025 Common Visit Codes: PROCEDURE ONLY Procedure Codes: [id number] (18366 Therapeutic bronchoscopy) KARENA WESTFALL MD Apr 30, 2025 15:29
--- NOTE | 2025-04-30 15:34 | DVHNC2 ---
Procedure - Ultrasound-guided LEFT thoracentesis procedure note: Physician: Dr Azul Hernandez Date of service: 04/30/2025 Time out time: 1405 Patient medications and allergies reviewed. The risks and benefits of the procedure and the sedation options and risk were discussed with the patient's healthcare proxy. All questions were answered and informed consent was obtained. Patient identification and proposed procedure were verified prior to the procedure by the physician, and a nurse in the patient's room. The heart rate, respiratory rate, oxygen saturations, blood pressure, adequacy of pulmonary ventilation, and response to care were monitored throughout the p rocedure. The physical status of the patient was reassessed after the procedure. Consent: Consent was obtained from patient's healthcare proxy prior to procedure. Indication, risks, and benefits were explained at length. Procedure summary: A time-out was performed and a chest x-ray was reviewed prior to procedure. The appropriate site was confirmed and marked. My hands were washed immediately prior to the procedure, I wore a surgical cap, mask with protective eyewear, sterile gown and sterile gloves throughout the procedure. The patient was prepped and draped in a sterile manner using chlorhexidine scrub after the appropriate level was percussed and confirmed by ultrasound. 1% lidocaine was used to anesthetize the skin, subcutaneous tissue, superior aspect of the rib periosteum and parietal pleura. A finder needle was then introduced over the superior aspect of the rib to locate the pleural fluid; sero-sanguinous fluid was aspirated. Thoracentesis needle was then introduced through the skin incision into the pleural space using negative aspiration pressure. The thoracentesis catheter was then threaded without difficulty. 250 mL's of sero- sanguinous colored fluid were removed without difficulty. The catheter was then removed. No immediate complications were noted during the procedure. A postprocedure chest x-ray is pending at the time of this note. The pleural fluid will be sent for cultures and cytology. Estimated blood loss is less than 5 mL's. CPT: 28746 Visit Coding Pulmonary Billing Provider: KARENA HERNANDEZ MD Date of Service if different f: Apr 30, 2025 Common Visit Codes: PROCEDURE ONLY Procedure Codes: [id number] W/PUNCT (50333 Left thoracentesis) KARENA HERNANDEZ MD Apr 30, 2025 15:34
--- NOTE | 2025-04-30 15:35 | DVHPN2 ---
Progress Note Date Seen: Apr 30, 2025 Medical Necessity Reason Pt with a Central, PICC or Fol: No Objective vital signs Vital Sign Date Time Temp Pulse Resp B/P (MAP) Pulse Ox O2 Delivery O2 Flow Rate FiO2 04/30/25 14:46 86 33 138/68 (91) 91 04/30/25 14:00 Nasal Cannula* 3 32 04/30/25 12:00 99.0 99.0 Total Intake and Output 04/29/25 04/29/25 04/30/25 15:00 23:00 07:00 Intake Total 856 ml 825.5 ml 932 ml Output Total 0 ml 2675 ml 400 ml Balance 856 ml -1849.5 ml 532 ml medications Current Medications Medications Dose Ordered Sig/Gregory Route Start Time Stop Time Status Last Admin Dose Admin Pantoprazole Sodium 40 mg DAILY IV 04/16/25 10:00 04/30/25 09:58 40 MG Piperacillin Sod/ Tazobactam Sod 100 ml @ 25 mls/hr Q8HR IV 04/16/25 22:00 04/30/25 05:48 25 MLS/HR Amino Acids 0 ml @ 0 mls/hr PER PHARMACY IV 04/18/25 17:45 Sodium Chloride 10 ml QSHIFT@10,22 IV 04/21/25 22:00 04/30/25 09:57 10 ML Labetalol HCl 20 mg Q2HPRN PRN IV 04/24/25 15:30 04/27/25 22:00 20 MG Albuterol 2.5 mg Q3HPRN PRN NEB 04/24/25 16:15 Lorazepam 0.25 mg Q6HP PRN IV 04/24/25 18:30 04/30/25 01:38 0.25 MG Nicardipine/ Sodium Chloride 200 ml @ 50 mls/hr Q4H IV 04/25/25 09:45 Acetylcysteine 100 mg Q4HR NEB 04/25/25 14:00 04/30/25 15:00 100 MG Ipratropium [place] 0.5 mg Q4HR NEB 04/25/25 18:00 04/30/25 14:59 0.5 MG Levalbuterol HCl 0.625 mg Q4HR NEB 04/26/25 10:00 04/30/25 14:59 0.625 MG Enoxaparin Sodium 40 mg DAILY SC 04/26/25 10:00 04/30/25 09:58 40 MG Micafungin Sodium 100 mg/Sodium Chloride 100 ml @ 100 mls/hr DAILY IV 04/29/25 10:00 04/30/25 09:57 100 MLS/HR Lactated Ringer's 1,000 ml @ 50 mls/hr Q20H IV 04/29/25 08:15 04/30/25 04:15 50 MLS/HR Fat Emulsion Intravenous 100 ml/Sodium Phosphate 40 meq/ Potassium Chloride 20 meq/ Calcium Gluconate 6.975 meq/ Magnesium Sulfate 12 meq/ Multivitamins 10 ml/Chromium/ Copper/Manganese/ Zinc 1 ml/Amino Acids/Dextrose/ Purified Water 1,299 ml @ 54 mls/hr Q24H4M IV 04/29/25 22:00 04/30/25 21:59 04/29/25 22:44 54 MLS/HR Diagnostic Test (Pha) 1 strip Q6HR 04/30/25 12:00 04/30/25 12:00 1 STRIP Insulin Human Regular FOLLOW SLIDING SCALE Q6HR SC 04/30/25 12:00 Dextrose 50 ml UD IV 04/30/25 09:00 Fat Emulsion Intravenous 100 ml/Sodium Phosphate 40 meq/ Potassium Acetate 60 meq/Calcium Gluconate 6.975 meq/Magnesium Sulfate 12 meq/ Multivitamins 10 ml/Chromium/ Copper/Manganese/ Zinc 1 ml/Amino Acids/Dextrose/ Purified Water 1,369 ml @ 57 mls/hr Q24H2M IV 04/30/25 22:00 05/01/25 21:59 Lidocaine 1 patch DAILY TOP 04/30/25 10:30 04/30/25 10:55 1 PATCH Morphine Sulfate 1 mg Q6HP PRN IV 04/30/25 10:30 04/30/25 10:57 1 MG Metoprolol Tartrate 2.5 mg Q4HR PRN IV 04/30/25 11:30 Metoclopramide HCl 5 mg Q8HR IV 04/30/25 22:00 05/02/25 14:01 laboratory and microbiology Laboratory Tests 04/30/25 04:27 Test 04/30/25 04:27 Range/Units Serum Glucose 117 H 74-106 mg/dL Microbiology Date/Time Source Procedure Growth Status 04/22/25 15:28 Nose MRSA Screen - Final Complete 04/20/25 22:35 Sputum Endotracheal Wash Gram Stain - Final Complete 04/20/25 22:35 Respiratory Culture - Final Yeast, not Piedad albicans Complete Problem List/Assessment/Plan Problem List/Assessment/Plan AFEBRILE VSS BM REPORTED WOUND DRESSING DRY REMAINS EXTUBATED AND AWAKE AND RESPONSIVE CXR LEFT LUNG WHITE OUT SAME PULM REPEAT BRONCHOSCOPY L THORACENTESIS ONGOING CONTINUE SUPPORTIVE CARE FAMILY AWARE OF PT CONDITION NURSE AT BEDSIDE ONGOING PULM EVAL Plan discussed with: Other Dietary Evaluation Review Recommendations by RD: PPN/TPN Comments: 1) Increase TPN to meet at least 75% estimated daily needs 2) Advance to cardiac diet when medically feasible 3) Follow-up with gastroenterology and neurology 4) Continue to monitor I&O, labs, and skin integrity Expected Outcomes/Goals: 1) nutrition support to meet at least 75% estimated daily needs 2) labs to improve 3) diet to advance 4) gradual wt gain 5) f/u in 2-3 days GLORIA MCNEAL MD Apr 30, 2025 15:35
[2025-04-30] MEDS: METOCLOPRAMIDE HCL 5MG/ml INJ 2ml VIAL IV SCH (22:14)
[2025-04-30] MEDS: TPN PER PHARMACY IV NR (22:26)
--- NOTE | 2025-04-30 22:57 | DVHPN2 ---
Subjective DOS: 04/30/2025 Patient seen and examined at bedside. Remains on supplemental oxygen Overnight events reviewed. Reviewed: Care Plan, H&P, Labs, Medications Changes from previous H/P or p: No Changes General: Per HPI Objective Vitals Vital Signs Date Time Temp Pulse Resp B/P (MAP) Pulse Ox O2 Delivery O2 Flow Rate FiO2 04/30/25 20:00 29 100 Nasal Cannula* 3 32 04/30/25 20:00 94 04/30/25 19:15 118/49 (72) 04/30/25 12:00 99.0 99.0 Intake/Output Intake and Output 04/30/25 07:00 Intake Total 2613.5 ml Output Total 3075 ml Balance -461.5 ml Intake Oral 0 ml IV Total 2613.5 ml Output Urine Total 1075 ml Stool Total 0 ml Gastric Drainage Total 2000 ml # Bowel Movements 1 General Appearance: Alert, Cooperative, mild distress, Other (Underlying dementia) HEENT: PERRLA, Other Lungs: Other (Decreased air movement. Patient currently on supplemental oxygen. Chest x-ray reveals improved aeration of REMY.) Cardiovascular: Normal S1, Normal S2 Abdomen: No tenderness, No hepatospenomegaly, Other (Reported BM yesterday evening. Hypoactive bowel sounds) Genitourinary: No Apparent Abnormalities (Grewal catheter) Musculoskeletal: Normal sensory function, Normal motor function Extremities: No edema, Normal pulses, No tenderness/swelling Neuro: Other Skin: Dry, Intact, Wounds, Other (Surgical wound D&I) Psych/Mental Status: Mood NL Medications Current Medications Medications Dose Ordered Sig/Gregory Route Start Time Stop Time Status Last Admin Dose Admin Pantoprazole Sodium 40 mg DAILY IV 04/16/25 10:00 04/30/25 09:58 40 MG Piperacillin Sod/ Tazobactam Sod 100 ml @ 25 mls/hr Q8HR IV 04/16/25 22:00 04/30/25 22:16 25 MLS/HR Amino Acids 0 ml @ 0 mls/hr PER PHARMACY IV 04/18/25 17:45 Sodium Chloride 10 ml QSHIFT@10,22 IV 04/21/25 22:00 04/30/25 22:14 10 ML Labetalol HCl 20 mg Q2HPRN PRN IV 04/24/25 15:30 04/27/25 22:00 20 MG Albuterol 2.5 mg Q3HPRN PRN NEB 04/24/25 16:15 Lorazepam 0.25 mg Q6HP PRN IV 04/24/25 18:30 04/30/25 01:38 0.25 MG Nicardipine/ Sodium Chloride 200 ml @ 50 mls/hr Q4H IV 04/25/25 09:45 Acetylcysteine 100 mg Q4HR NEB 04/25/25 14:00 04/30/25 22:27 100 MG Ipratropium [place] 0.5 mg Q4HR NEB 04/25/25 18:00 04/30/25 22:26 0.5 MG Levalbuterol HCl 0.625 mg Q4HR NEB 04/26/25 10:00 04/30/25 22:26 0.625 MG Enoxaparin Sodium 40 mg DAILY SC 04/26/25 10:00 04/30/25 09:58 40 MG Micafungin Sodium 100 mg/Sodium Chloride 100 ml @ 100 mls/hr DAILY IV 04/29/25 10:00 04/30/25 09:57 100 MLS/HR Lactated Ringer's 1,000 ml @ 50 mls/hr Q20H IV 04/29/25 08:15 04/30/25 04:15 50 MLS/HR Diagnostic Test (Pha) 1 strip Q6HR 04/30/25 12:00 04/30/25 17:37 1 STRIP Insulin Human Regular FOLLOW SLIDING SCALE Q6HR SC 04/30/25 12:00 Dextrose 50 ml UD IV 04/30/25 09:00 Fat Emulsion Intravenous 100 ml/Sodium Phosphate 40 meq/ Potassium Acetate 60 meq/Calcium Gluconate 6.975 meq/Magnesium Sulfate 12 meq/ Multivitamins 10 ml/Chromium/ Copper/Manganese/ Zinc 1 ml/Amino Acids/Dextrose/ Purified Water 1,369 ml @ 57 mls/hr Q24H2M IV 04/30/25 22:00 05/01/25 21:59 04/30/25 22:26 57 MLS/HR Lidocaine 1 patch DAILY TOP 04/30/25 10:30 04/30/25 10:55 1 PATCH Morphine Sulfate 1 mg Q6HP PRN IV 04/30/25 10:30 04/30/25 18:13 1 MG Metoprolol Tartrate 2.5 mg Q4HR PRN IV 10/29/25 11:30 Metoclopramide HCl 5 mg Q8HR IV 04/30/25 22:00 05/02/25 14:01 04/30/25 22:14 5 MG Laboratory Results Laboratory Tests 04/30/25 04:27 Chemistry Test 04/30/25 04:27 Albumin 3.2 g/dL (3.2-4.8) Calcium Level 8.1 mg/dL (8.7-10.4) L Magnesium Level 2.0 mg/dL (1.6-2.6) Phosphorus Level 3.6 mg/dL (2.4-5.1) Total Protein 5.7 g/dL (5.7-8.2) LFT Test 04/30/25 04:27 Alanine Aminotransferase (ALT) 70 U/L (7-40) H Alkaline Phosphatase 100 U/L (46-116) Aspartate Amino Transferase (AST) 29 U/L (13-40) Total Bilirubin 0.6 mg/dL (0.2-1.0) Urinalysis Test 04/15/25 15:45 Urine Color Light-orange (Yellow) Urine Clarity Ex.turbid (Clear) Urine pH 5.5 (5.0-9.0) Urine Specific [place] 1.028 (1.001-1.035) Urine Protein 1+ (Negative) H Urine Ketones Negative (Negative) Urine Blood 1+ /uL (Negative) H Urine Nitrite Negative (Negative) Urine Bilirubin Negative (Negative) Urine Urobilinogen 3 mg/dL (Negative) H Urine Leukocyte Esterase Negative /uL (Negative) Urine RBC 16 /hpf (0 - 4) Urine Microscopic WBC 1 /HPF (0-5) Urine Squamous Epithelial Cells Mod /hpf (<5) Urine Amorphous Crystals Few /hpf (None Seen) Urine Bacteria Few /hpf (None Seen) H Urine Hyaline Casts Few /lpf (0 - 2) Urine Mucus Few (None Seen) Urine Glucose Normal mg/dL (Normal) Microbiology Microbiology Date/Time Source Procedure Growth Status 04/22/25 15:28 Nose MRSA Screen - Final Complete 04/20/25 22:35 Sputum Endotracheal Wash Gram Stain - Final Complete 04/20/25 22:35 Respiratory Culture - Final Yeast, not Piedad albicans Complete Assessment/Plan Assessment/Plan Impression: Acute hypoxic respiratory failure Dependence on supplemental oxygen Atelectasis Lung collapse Pneumonia Hx of nicotine dependence Cachexia, BMI 17.4 Events: Remains on supplemental oxygen Currently on 3 LPM NC. Improving O2 requirements Continue to taper O2 as tolerated CT chest demonstrated improved aeration of left upper lobe Repeat bronchoscopy performed today with removal of mucous plugs in left lower lobe bronchus. See separate procedure note for details. Limited chest ultrasound revealed small left pleural effusion. Left thoracentesis performed today with removal of 250 mL serosanguineous fluid. Patient received metoprolol for tachycardia. S/p bronchoscopy on 04/26/25 with clearance of copious secretions in L1-L10. Endobronchial lesion in left mainstem bronchus, biopsied. Follow up biopsy results. Continue bronchodilators/Mucomyst CPT Continue antibiotics Continue antifungals Incentive spirometry NG tube in place TPN for nutritional support IV fluids with LR at 50 ml/hr. HOB elevation Aspiration precautions Labs and imaging reviewed. Rest of plan as noted below. Plan: Supplemental oxygen Titrate to keep O2 sats above 92%. Monitor respiratory status closely d/t increased O2 requirements Continue bronchodilators. Continue antibiotics Incentive spirometry Head of bed elevation Aspiration precautions NGT in place Monitor renal function. Monitor electrolytes. Supplement as necessary. Monitor ins and outs. DVT prophylaxis. Prognosis: Poor given patient's multiple co-morbidities. Condition: Critical Rest of plan per hospitalist and other consultants. A total of 35 minutes of critical care time was spent reviewing the patient record, examining the patient, making a diagnostic and therapeutic plan, discussing this plan with the medical personnel, following up on diagnostic studies and following the patient for clinical stability excluding any and all procedures. At least 50% of this time was spent in direct, [id number] contact. Thank you, JESÚS Ford, for allowing me to participate in this patient's care. Further recommendations will depend on the patient's clinical course. Please do not hesitate to contact me if you have any questions or concerns. This medical document was created using an electronic medical record system with [employer] system. Although these documentations are being carefully reviewed, there may still be some phonetic and typographical changes. The errors are purely typographical, due to imperfection on the software program, and do not reflect any compromise in the patient's medical care. Plan discussed with: Patient, Other (RN) My Orders Orders - KARENA WESTFALL MD Procedure Category Date Status Time Chest Portable XY 04/30/25 Resulted 14:33 Cytology JANESSA 04/30/25 Transmitted 19:32 Lactate LAB 04/30/25 In Process Dehydrogenase, Fluid 19:40 Protein, Body Fluid LAB 04/30/25 In Process 19:40 Glucose Body Fluid LAB 04/30/25 In Process 19:40 Body Fluid Culture W/ JANESSA 04/30/25 In Process GS 19:40 Visit Coding Pulmonary Billing Provider: KARENA WESTFALL MD Date of Service if different f: Apr 30, 2025 Common Visit Codes: [id number] INP/OBS CARE(HIGH), [id number] CARE 30-74 MIN KARENA WESTFALL MD Apr 30, 2025 22:57
[2025-05-01] VITALS (116 sets, daily range): BP systolic 72–151; BP diastolic 22–99; PULSE 83–111; RESP 11–44; TEMP 98.4–100.3; O2SAT 81–100
[2025-05-01 04:42] LABS: Hematocrit 31.8 % (36.0-46.0); Hemoglobin 10.5 g/dL (12.2-16.2); Mean Corpuscular Hemoglobin 33.2 pg (28.0-32.0); Mean Corpuscular Volume 100.3 fL (80.0-100.0); Nucleated Red Blood Cells % 0.1 %
--- NOTE | 2025-05-01 05:02 | DVH ---
CHEST RADIOGRAPH Indication: aspiration pna Technique: Single frontal view of the chest was obtained COMPARISON: XY CHEST PORTABLE on DOS: 04/30/25, XY CHEST XRAY 1 VIEW on DOS: 04/30/25, XY CHEST GRACIE BLE on DOS: 04/29/25, XY CHEST PORTABLE on DOS: 04/28/25, XY CHEST PORTABLE on DOS: 04/28/25 FINDINGS: Lines and Tubes: Enteric catheter remains redundantly coiled upon itself within the midportion of the esophagus. The tip is identified within the left upper quadrant, gastric lumen. Right peripherally inserted central catheter unchanged. Lungs: Small left pleural effusion. Mild diffuse increased prominence of the pulmonary vasculature. No pneumothorax. Cardiomediastinal contours: Cardiomegaly. Bones: Unremarkable IMPRESSION: 1. Enteric catheter remains redundant within the midportion of the esophagus. 2. Repositioning is recommended. 3. Small left pleural effusion. 4. Cardiomegaly with mild pulmonary vascular congestion.
[2025-05-01 05:03] LABS: Albumin 3.2 g/dL (3.2-4.8); Alkaline Phosphatase 110 U/L (46-116); Anion Gap 11 (5-15); Carbon Dioxide 26 mmol/L (20-31); Chloride 106 mmol/L (98-107); Magnesium 1.9 mg/dL (1.6-2.6); Potassium 3.6 mmol/L (3.5-5.1); Sodium 143 mmol/L (136-145)
[2025-05-01 05:04] LABS: Bilirubin, Total 0.7 mg/dL (0.2-1.0)
[2025-05-01 05:17] LABS: Alanine Aminotransferase 64 U/L (7-40); Blood Urea Nitrogen 23 mg/dL (9-23); Calcium 8.1 mg/dL (8.7-10.4); Glucose 107 mg/dL (74-106); Total Protein 5.6 g/dL (5.7-8.2)
[2025-05-01 05:18] LABS: BUN/Creatinine Ratio 56.1 (10.0-20.0)
[2025-05-01] MEDS: METOPROLOL TARTRATE 1MG/1ML-5ML VIAL IV PRN (12:06)
[2025-05-01] MEDS: ALBUTEROL SULF 2.5 MG/0.5ML(0.5%) NEB SOLN NEB PRN (19:21)
[2025-05-02] VITALS (62 sets, daily range): BP systolic 112–185; BP diastolic 32–97; PULSE 77–115; RESP 12–41; TEMP 98.1–101; O2SAT 68–100
[2025-05-02] MEDS: KETOROLAC TROMETH 30 MG/ML 1ML VIAL IV ONE (00:40)
[2025-05-02] MEDS: methylPREDNISolone SOD SUCC 125 MG/2 ML VL IV ONE (03:41)
[2025-05-02 04:41] LABS: Albumin 3.4 g/dL (3.2-4.8); Alkaline Phosphatase 101 U/L (46-116); Anion Gap 10 (5-15); BUN/Creatinine Ratio 48.8 (10.0-20.0); Blood Urea Nitrogen 20 mg/dL (9-23); Carbon Dioxide 26 mmol/L (20-31); Chloride 104 mmol/L (98-107); Magnesium 2.0 mg/dL (1.6-2.6); Potassium 3.6 mmol/L (3.5-5.1); Sodium 140 mmol/L (136-145); Total Protein 6.1 g/dL (5.7-8.2)
[2025-05-02 04:42] LABS: Bilirubin, Total 0.7 mg/dL (0.2-1.0)
[2025-05-02 04:43] LABS: Alanine Aminotransferase 58 U/L (7-40); Calcium 8.5 mg/dL (8.7-10.4); Glucose 124 mg/dL (74-106)
--- NOTE | 2025-05-02 08:59 | DVH ---
INDICATION: left lung aspiration pna TECHNIQUE: Single frontal view of the chest was obtained COMPARISON: XY CHEST XRAY 1 VIEW on DOS: 05/01/25, XY CHEST PORTABLE on DOS: 04/30/25, XY CHEST XRAY 1 VIEW on DOS: 04/30/25, XY CHEST PORTABLE on DOS: 04/29/25, XY CHEST PORTABLE on DOS: 04/28/25, XY C HEST XRAY 1 VIEW on DOS: 05/01/25 FINDINGS: Lines and Tubes: Enteric catheter remains redundantly coiled upon itself within the midportion of the esophagus. The tip is identified within the left upper quadrant, gastric lumen. Right peripherally inserted central catheter unchanged. Lungs: Small left pleural effusion. Mild diffuse increased prominence of the pulmonary vasculature. No pneumothorax. Cardiomediastinal contours: Cardiomegaly. Bones: Unremarkable IMPRESSION: 1. Enteric catheter remains redundant within the midportion of the esophagus. 2. Repositioning is recommended. 3. Small left pleural effusion. 4. Cardiomegaly with mild pulmonary vascular congestion.
[2025-05-02] MEDS ORDERED: FAMOTIDINE (10MG/ML) 2ML VL IV SCH (10:00)
[2025-05-02] MEDS ORDERED: OXYCODONE W/ ACETAMINOPHEN 5/325MG TABLET PO PRN (10:00)
[2025-05-02] MEDS: POTASSIUM PHOSPHATE 22 MEQ in SODIUM CHL 0.9% 100 ML IV ONE (10:58)
--- NOTE | 2025-05-02 11:04 | DVHPN2 ---
Subjective Patient denies any symptoms Reviewed: Care Plan, H&P, Labs, Medications Changes from previous H/P or p: No Changes General: Per HPI Objective Vitals Vital Signs Date Time Temp Pulse Resp B/P (MAP) Pulse Ox O2 Delivery O2 Flow Rate FiO2 05/01/25 09:11 121/51 05/01/25 08:00 108 05/01/25 08:00 30 97 Nasal Cannula* 2 28 05/01/25 06:00 98.4 98.4 Intake/Output Intake and Output 05/01/25 07:00 Intake Total 2443 ml Output Total 1750 ml Balance 693 ml Intake Oral 0 ml IV Total 2443 ml Output Urine Total 1200 ml Stool Total 0 ml Gastric Drainage Total 550 ml General Appearance: Alert, Cooperative, mild distress, Other (Underlying dementia) HEENT: PERRLA, Other Lungs: Other (Decreased air movement. Patient currently on supplemental oxygen. Chest x-ray reveals improved aeration of REMY.) Cardiovascular: Normal S1, Normal S2 Abdomen: No tenderness, No hepatospenomegaly, Other (Reported BM yesterday evening. Hypoactive bowel sounds) Genitourinary: No Apparent Abnormalities (Grewal catheter) Musculoskeletal: Normal sensory function, Normal motor function Extremities: No edema, Normal pulses, No tenderness/swelling Neuro: Other Skin: Dry, Intact, Wounds, Other (Surgical wound D&I) Psych/Mental Status: Mood NL Medications Current Medications Medications Dose Ordered Sig/Gregory Route Start Time Stop Time Status Last Admin Dose Admin Pantoprazole Sodium 40 mg DAILY IV 04/16/25 10:00 04/30/25 09:58 40 MG Piperacillin Sod/ Tazobactam Sod 100 ml @ 25 mls/hr Q8HR IV 04/16/25 22:00 05/01/25 05:58 25 MLS/HR Amino Acids 0 ml @ 0 mls/hr PER PHARMACY IV 04/18/25 17:45 Sodium Chloride 10 ml QSHIFT@10,22 IV 04/21/25 22:00 04/30/25 22:14 10 ML Labetalol HCl 20 mg Q2HPRN PRN IV 04/24/25 15:30 04/27/25 22:00 20 MG Albuterol 2.5 mg Q3HPRN PRN NEB 04/24/25 16:15 Lorazepam 0.25 mg Q6HP PRN IV 04/24/25 18:30 05/01/25 02:45 0.25 MG Nicardipine/ Sodium Chloride 200 ml @ 50 mls/hr Q4H IV 04/25/25 09:45 Acetylcysteine 100 mg Q4HR NEB 04/25/25 14:00 05/01/25 07:22 100 MG Ipratropium [place] 0.5 mg Q4HR NEB 04/25/25 18:00 05/01/25 07:22 0.5 MG Levalbuterol HCl 0.625 mg Q4HR NEB 04/26/25 10:00 05/01/25 07:22 0.625 MG Enoxaparin Sodium 40 mg DAILY SC 04/26/25 10:00 04/30/25 09:58 40 MG Micafungin Sodium 100 mg/Sodium Chloride 100 ml @ 100 mls/hr DAILY IV 04/29/25 10:00 04/30/25 09:57 100 MLS/HR Lactated Ringer's 1,000 ml @ 50 mls/hr Q20H IV 04/29/25 08:15 04/30/25 23:55 50 MLS/HR Diagnostic Test (Pha) 1 strip Q6HR 04/30/25 12:00 05/01/25 06:15 1 STRIP Insulin Human Regular FOLLOW SLIDING SCALE Q6HR SC 04/30/25 12:00 Dextrose 50 ml UD IV 04/30/25 09:00 Fat Emulsion Intravenous 100 ml/Sodium Phosphate 40 meq/ Potassium Acetate 60 meq/Calcium Gluconate 6.975 meq/Magnesium Sulfate 12 meq/ Multivitamins 10 ml/Chromium/ Copper/Manganese/ Zinc 1 ml/Amino Acids/Dextrose/ Purified Water 1,369 ml @ 57 mls/hr Q24H2M IV 04/30/25 22:00 05/01/25 21:59 04/30/25 22:26 57 MLS/HR Lidocaine 1 patch DAILY TOP 04/30/25 10:30 04/30/25 10:55 1 PATCH Morphine Sulfate 1 mg Q6HP PRN IV 04/30/25 10:30 05/01/25 01:14 1 MG Metoprolol Tartrate 2.5 mg Q4HR PRN IV 04/30/25 11:30 Metoclopramide HCl 5 mg Q8HR IV 04/30/25 22:00 05/02/25 14:01 05/01/25 05:58 5 MG Laboratory Results Laboratory Tests 05/01/25 04:00 Chemistry Test 05/01/25 04:00 Albumin 3.2 g/dL (3.2-4.8) Calcium Level 8.1 mg/dL (8.7-10.4) L Magnesium Level 1.9 mg/dL (1.6-2.6) Phosphorus Level 3.1 mg/dL (2.4-5.1) Total Protein 5.6 g/dL (5.7-8.2) L LFT Test 05/01/25 04:00 Alanine Aminotransferase (ALT) 64 U/L (7-40) H Alkaline Phosphatase 110 U/L (46-116) Aspartate Amino Transferase (AST) 32 U/L (13-40) Total Bilirubin 0.7 mg/dL (0.2-1.0) Urinalysis Test 04/15/25 15:45 Urine Color Light-orange (Yellow) Urine Clarity Ex.turbid (Clear) Urine pH 5.5 (5.0-9.0) Urine Specific [place] 1.028 (1.001-1.035) Urine Protein 1+ (Negative) H Urine Ketones Negative (Negative) Urine Blood 1+ /uL (Negative) H Urine Nitrite Negative (Negative) Urine Bilirubin Negative (Negative) Urine Urobilinogen 3 mg/dL (Negative) H Urine Leukocyte Esterase Negative /uL (Negative) Urine RBC 16 /hpf (0 - 4) Urine Microscopic WBC 1 /HPF (0-5) Urine Squamous Epithelial Cells Mod /hpf (<5) Urine Amorphous Crystals Few /hpf (None Seen) Urine Bacteria Few /hpf (None Seen) H Urine Hyaline Casts Few /lpf (0 - 2) Urine Mucus Few (None Seen) Urine Glucose Normal mg/dL (Normal) Microbiology Microbiology Date/Time Source Procedure Growth Status 04/30/25 14:30 Pleural Fluid Gram Stain Pending Resulted 04/30/25 14:30 Pleural Fluid Body Fluid Culture - Preliminary Resulted 04/22/25 15:28 Nose MRSA Screen - Final Complete 04/20/25 22:35 Sputum Endotracheal Wash Gram Stain - Final Complete 04/20/25 22:35 Respiratory Culture - Final Yeast, not Piedad albicans Complete Labs and/or images reviewed: Labs reviewed by me, Image(s) reviewed by me Assessment/Plan Assessment/Plan Impression: -choledocholithiasis -acute pancreatitis -small-bowel obstruction -dementia -cachexia -sepsis -COPD -GERD -Post op delirium -Accelerated HTN -A. fib Plan: Events: Patient currently on nasal cannula 4 L/min. Chest x-ray reveals at left lung made open. Patient removed NG tube yesterday evening. Continue to keep head of bed greater than 30 for aspiration precautions. Start ice chips clear liquid diet if okay with General surgery. -continue IV Reglan -out of bed to chair with physical therapy -continue TPN and TKO IV fluids. -Pulmonology consult- case discussed -Continue Zosyn, micafungin -PPI -Antihypertensives -pain management -continue bronchodilators, Mucomyst -repeat labs and chest x-ray in a.m. Transferred to step-down ICU Critical care time spent with patient discussing and formulating plan of care: 40 minutes. This does not include time spent performing procedures. This medical document was created using an electronic medical record system with [employer]ation system. Although this document has been carefully reviewed, there may still be some phonetic and typographical errors. These areas are purely typographical due to imperfections of the software programs, and do not reflect any compromise in the patient's medical care. Plan discussed with: Patient, Other (RN) My Orders Orders - JAYDEN HILL NP Procedure Category Date Status Time Lidocaine 5% Topical PHA 04/30/25 In Process Patch (Lidoderm 5% 10:30 Morphine Sulfate PHA 04/30/25 In Process Injection 10:30 Metoprolol Inj PHA 04/30/25 In Process (Lopressor) 11:30 Metoclopramide PHA 04/30/25 In Process Injection (Reglan 22:00 Pt Request For Service PT 05/01/25 Logged : Transfer Orders XFER 05/01/25 Transmitted 09: Date of Service: May 01, 2025 Billing Provider: JAYDEN HILL NP Common Visit Codes: [id number] INP/OBS CARE(HIGH) JAYDEN HILL NP May 01, 2025 09:34
--- NOTE | 2025-05-02 11:11 | DVHPN2 ---
Progress Note Date Seen: May 01, 2025 Resident Creating Document: HOLLY DEAN RESIDENT Medical Necessity Reason Pt with a Central, PICC or Fol: Yes Subjective Review of Systems Patient seen and examined at bedside Does not report of any abdominal pain, nausea, vomiting For bowel movements on 04/29 and 1 bowel movement on 04/30 NG tube was pulled out with the patient yesterday Status post bronchoscopy yesterday with suctioning of copious secretions from the left mainstem bronchus to the segmental levels Left Thoracentesis yesterday with 250 mL of serosanguineous fluid removed Objective vital signs Vital Sign Date Time Temp Pulse Resp B/P (MAP) Pulse Ox O2 Delivery O2 Flow Rate FiO2 05/01/25 12:30 83 24 122/54 (76) 100 05/01/25 12:00 Nasal Cannula* 2 28 05/01/25 12:00 98.8 98.8 Total Intake and Output 04/30/25 04/30/25 05/01/25 15:00 23:00 07:00 Intake Total 1007 ml 801 ml 742 ml Output Total 0 ml 625 ml 1125 ml Balance 1007 ml 176 ml -383 ml medications Current Medications Medications Dose Ordered Sig/Gregory Route Start Time Stop Time Status Last Admin Dose Admin Pantoprazole Sodium 40 mg DAILY IV 04/16/25 10:00 05/01/25 10:22 40 MG Piperacillin Sod/ Tazobactam Sod 100 ml @ 25 mls/hr Q8HR IV 04/16/25 22:00 05/01/25 05:58 25 MLS/HR Amino Acids 0 ml @ 0 mls/hr PER PHARMACY IV 04/18/25 17:45 Sodium Chloride 10 ml QSHIFT@10,22 IV 04/21/25 22:00 05/01/25 10:26 10 ML Labetalol HCl 20 mg Q2HPRN PRN IV 04/24/25 15:30 04/27/25 22:00 20 MG Albuterol 2.5 mg Q3HPRN PRN NEB 04/24/25 16:15 Lorazepam 0.25 mg Q6HP PRN IV 04/24/25 18:30 05/01/25 12:06 0.25 MG Nicardipine/ Sodium Chloride 200 ml @ 50 mls/hr Q4H IV 04/25/25 09:45 Acetylcysteine 100 mg Q4HR NEB 04/25/25 14:00 05/01/25 10:21 100 MG Ipratropium [place] 0.5 mg Q4HR NEB 04/25/25 18:00 05/01/25 10:21 0.5 MG Levalbuterol HCl 0.625 mg Q4HR NEB 04/26/25 10:00 05/01/25 10:21 0.625 MG Enoxaparin Sodium 40 mg DAILY SC 04/26/25 10:00 05/01/25 10:22 40 MG Micafungin Sodium 100 mg/Sodium Chloride 100 ml @ 100 mls/hr DAILY IV 04/29/25 10:00 05/01/25 10:22 100 MLS/HR Lactated Ringer's 1,000 ml @ 50 mls/hr Q20H IV 04/29/25 08:15 04/30/25 23:55 50 MLS/HR Diagnostic Test (Pha) 1 strip Q6HR 04/30/25 12:00 05/01/25 12:07 1 STRIP Insulin Human Regular FOLLOW SLIDING SCALE Q6HR AL 04/30/25 12:00 Dextrose 50 ml UD IV 04/30/25 09:00 Fat Emulsion Intravenous 100 ml/Sodium Phosphate 40 meq/ Potassium Acetate 60 meq/Calcium Gluconate 6.975 meq/Magnesium Sulfate 12 meq/ Multivitamins 10 ml/Chromium/ Copper/Manganese/ Zinc 1 ml/Amino Acids/Dextrose/ Purified Water 1,369 ml @ 57 mls/hr Q24H2M IV 04/30/25 22:00 05/01/25 21:59 04/30/25 22:26 57 MLS/HR Lidocaine 1 patch DAILY TOP 04/30/25 10:30 05/01/25 10:25 1 PATCH Morphine Sulfate 1 mg Q6HP PRN IV 04/30/25 10:30 05/01/25 10:25 1 MG Metoprolol Tartrate 2.5 mg Q4HR PRN IV 04/30/25 11:30 05/01/25 12:06 2.5 MG Metoclopramide HCl 5 mg Q8HR IV 04/30/25 22:00 05/02/25 14:01 05/01/25 05:58 5 MG Fat Emulsion Intravenous 100 ml/Sodium Phosphate 10 meq/ Potassium Acetate 60 meq/Potassium Phosphate 22 meq/ Calcium Gluconate 9.3 meq/Magnesium Sulfate 14 meq/ Multivitamins 10 ml/Chromium/ Copper/Manganese/ Zinc 1 ml/Amino Acids/Dextrose/ Purified Water 1,372 ml @ 57 mls/hr Q24H5M IV 05/01/25 22:00 05/02/25 21:59 Examination Gen - no pallor, no scleral icterus Skin - Patients skin is warm and dry. HEENT - normocephalic, atraumatic, dry mucous membranes. Neck - supple, no lymphadenopathy Pulmonary - very diminished breath sounds in the left side, right side sounds without any crackles or wheezing cardiovascular - regular S1,S2 heard GI - soft abdomen status post exploratory laparotomy midline incision covered in a sterile dressing. Bowel sounds normoactive Neurological - Patient is A&O x2, following commands but is slightly confused likely in delirium laboratory and microbiology Laboratory Tests 05/01/25 04:00 Test 05/01/25 04:00 Range/Units Serum Glucose 107 H 74-106 mg/dL Microbiology Date/Time Source Procedure Growth Status 04/30/25 14:30 Pleural Fluid Gram Stain - Final Resulted 04/30/25 14:30 Pleural Fluid Body Fluid Culture - Preliminary Resulted 04/22/25 15:28 Nose MRSA Screen - Final Complete 04/20/25 22:35 Sputum Endotracheal Wash Gram Stain - Final Complete 04/20/25 22:35 Respiratory Culture - Final Yeast, not Piedad albicans Complete Problem List/Assessment/Plan Problem List/Assessment/Plan Assessment 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 Cui Plan discussed with: Patient, Other ([facility] Roll[place]) Dietary Evaluation Review Recommendations by RD: PPN/TPN Comments: 1) Increase TPN to meet at least 75% estimated daily needs 2) Advance to cardiac diet when medically feasible 3) Follow-up with gastroenterology and neurology 4) Continue to monitor I&O, labs, and skin integrity Expected Outcomes/Goals: 1) nutrition support to meet at least 75% estimated daily needs 2) labs to improve 3) diet to advance 4) gradual wt gain 5) f/u in 2-3 days HOLLY DEAN RESIDENT May 01, 2025 12:52
[2025-05-02] MEDS: METOPROLOL TARTRATE 25 MG TAB PO SCH (11:23)
--- NOTE | 2025-05-02 11:26 | DVHPN2 ---
Progress Note Date Seen: May 01, 2025 Medical Necessity Reason Pt with a Central, PICC or Fol: Yes Objective vital signs Vital Sign Date Time Temp Pulse Resp B/P (MAP) Pulse Ox O2 Delivery O2 Flow Rate FiO2 05/01/25 21:05 94 19 107/54 05/01/25 19:49 97 Nasal Cannula* 2 28 05/01/25 18:45 99.3 99.3 Total Intake and Output 04/30/25 04/30/25 05/01/25 15:00 23:00 07:00 Intake Total 1007 ml 801 ml 742 ml Output Total 0 ml 625 ml 1125 ml Balance 1007 ml 176 ml -383 ml medications Current Medications Medications Dose Ordered Sig/Gregory Route Start Time Stop Time Status Last Admin Dose Admin Pantoprazole Sodium 40 mg DAILY IV 04/16/25 10:00 05/01/25 10:22 40 MG Piperacillin Sod/ Tazobactam Sod 100 ml @ 25 mls/hr Q8HR IV 04/16/25 22:00 05/01/25 20:52 25 MLS/HR Amino Acids 0 ml @ 0 mls/hr PER PHARMACY IV 04/18/25 17:45 Sodium Chloride 10 ml QSHIFT@10,22 IV 04/21/25 22:00 05/01/25 20:52 10 ML Labetalol HCl 20 mg Q2HPRN PRN IV 04/24/25 15:30 04/27/25 22:00 20 MG Albuterol 2.5 mg Q3HPRN PRN NEB 04/24/25 16:15 05/01/25 19:21 2.5 MG Lorazepam 0.25 mg Q6HP PRN IV 04/24/25 18:30 05/01/25 12:06 0.25 MG Nicardipine/ Sodium Chloride 200 ml @ 50 mls/hr Q4H IV 04/25/25 09:45 Acetylcysteine 100 mg Q4HR NEB 04/25/25 14:00 05/01/25 19:21 100 MG Ipratropium [place] 0.5 mg Q4HR NEB 04/25/25 18:00 05/01/25 19:21 0.5 MG Levalbuterol HCl 0.625 mg Q4HR NEB 04/26/25 10:00 05/01/25 19:22 0.625 MG Enoxaparin Sodium 40 mg DAILY SC 04/26/25 10:00 05/01/25 10:22 40 MG Micafungin Sodium 100 mg/Sodium Chloride 100 ml @ 100 mls/hr DAILY IV 04/29/25 10:00 05/01/25 10:22 100 MLS/HR Lactated Ringer's 1,000 ml @ 50 mls/hr Q20H IV 04/29/25 08:15 05/01/25 20:15 50 MLS/HR Diagnostic Test (Pha) 1 strip Q6HR 04/30/25 12:00 05/01/25 18:01 1 STRIP Insulin Human Regular FOLLOW SLIDING SCALE Q6HR SC 04/30/25 12:00 Dextrose 50 ml UD IV 04/30/25 09:00 Fat Emulsion Intravenous 100 ml/Sodium Phosphate 40 meq/ Potassium Acetate 60 meq/Calcium Gluconate 6.975 meq/Magnesium Sulfate 12 meq/ Multivitamins 10 ml/Chromium/ Copper/Manganese/ Zinc 1 ml/Amino Acids/Dextrose/ Purified Water 1,369 ml @ 57 mls/hr Q24H2M IV 04/30/25 22:00 05/01/25 21:59 04/30/25 22:26 57 MLS/HR Lidocaine 1 patch DAILY TOP 04/30/25 10:30 05/01/25 10:25 1 PATCH Morphine Sulfate 1 mg Q6HP PRN IV 04/30/25 10:30 05/01/25 21:05 1 MG Metoprolol Tartrate 2.5 mg Q4HR PRN IV 04/30/25 11:30 05/01/25 12:06 2.5 MG Metoclopramide HCl 5 mg Q8HR IV 04/30/25 22:00 05/02/25 14:01 05/01/25 20:52 5 MG Fat Emulsion Intravenous 100 ml/Sodium Phosphate 10 meq/ Potassium Acetate 60 meq/Potassium Phosphate 22 meq/ Calcium Gluconate 9.3 meq/Magnesium Sulfate 14 meq/ Multivitamins 10 ml/Chromium/ Copper/Manganese/ Zinc 1 ml/Amino Acids/Dextrose/ Purified Water 1,372 ml @ 57 mls/hr Q24H5M IV 05/01/25 22:00 05/02/25 21:59 05/01/25 21:00 57 MLS/HR laboratory and microbiology Laboratory Tests 05/01/25 04:00 Test 05/01/25 04:00 Range/Units Serum Glucose 107 H 74-106 mg/dL Microbiology Date/Time Source Procedure Growth Status 04/30/25 14:30 Pleural Fluid Gram Stain - Final Resulted 04/30/25 14:30 Pleural Fluid Body Fluid Culture - Preliminary Resulted 04/22/25 15:28 Nose MRSA Screen - Final Complete 04/20/25 22:35 Sputum Endotracheal Wash Gram Stain - Final Complete 04/20/25 22:35 Respiratory Culture - Final Yeast, not Piedad albicans Complete Problem List/Assessment/Plan Problem List/Assessment/Plan AFEBRILE VSS BM + ABD SOFT NON TENDER WOUND DRESSING DRY REMAINS EXTUBATED AND AWAKE AND RESPONSIVE PULM REPEAT BRONCHOSCOPY L THORACENTESIS DONE NG TUBE REMOVED BY PT NO NV ALLOW ICE CHIPS AND SIPS OF WATER CONTINUE SUPPORTIVE CARE FAMILY AWARE OF PT CONDITION NURSE AT BEDSIDE ONGOING PULM EVAL Plan discussed with: Other My Orders My Orders Orders - GLORIA MCNEAL MD Procedure Category Date Status Time Npo Except For SAGE 05/01/25 In Process Medications 17:43 Communication Order ORDERS 05/01/25 Transmitted 17:43 Dietary Evaluation Review Recommendations by RD: PPN/TPN Comments: 1) Increase TPN to meet at least 75% estimated daily needs 2) Advance to cardiac diet when medically feasible 3) Follow-up with gastroenterology and neurology 4) Continue to monitor I&O, labs, and skin integrity Expected Outcomes/Goals: 1) nutrition support to meet at least 75% estimated daily needs 2) labs to improve 3) diet to advance 4) gradual wt gain 5) f/u in 2-3 days GLORIA MCNEAL MD May 01, 2025 21:46
--- NOTE | 2025-05-02 11:27 | DVHPN2 ---
Subjective DOS: 05/01/2025 Patient seen and examined at bedside. Remains on supplemental oxygen Overnight events reviewed. Reviewed: Care Plan, H&P, Labs, Medications Changes from previous H/P or p: No Changes General: Per HPI Objective Vitals Vital Signs Date Time Temp Pulse Resp B/P (MAP) Pulse Ox O2 Delivery O2 Flow Rate FiO2 05/01/25 22:00 109 44 116/89 (98) 98 05/01/25 22:00 Nasal Cannula* 2 28 05/01/25 18:45 99.3 99.3 Intake/Output Intake and Output 05/01/25 06:59 Intake Total 2572 ml Output Total 1750 ml Balance 822 ml Intake Oral 0 ml IV Total 2572 ml Output Urine Total 1200 ml Stool Total 0 ml Gastric Drainage Total 550 ml General Appearance: Alert, Cooperative, mild distress, Other (Underlying dementia) HEENT: PERRLA, Other Lungs: Other (Decreased air movement. Patient currently on supplemental oxygen. ) Cardiovascular: Normal S1, Normal S2 Abdomen: No tenderness, No hepatospenomegaly, Other (Reported BM yesterday evening. Hypoactive bowel sounds) Genitourinary: No Apparent Abnormalities (Grewal catheter) Musculoskeletal: Normal sensory function, Normal motor function Extremities: No edema, Normal pulses, No tenderness/swelling Neuro: Other Skin: Dry, Intact, Wounds, Other (Surgical wound D&I) Psych/Mental Status: Mood NL Medications Current Medications Medications Dose Ordered Sig/Gregory Route Start Time Stop Time Status Last Admin Dose Admin Pantoprazole Sodium 40 mg DAILY IV 04/16/25 10:00 05/01/25 10:22 40 MG Piperacillin Sod/ Tazobactam Sod 100 ml @ 25 mls/hr Q8HR IV 04/16/25 22:00 05/01/25 20:52 25 MLS/HR Amino Acids 0 ml @ 0 mls/hr PER PHARMACY IV 04/18/25 17:45 Sodium Chloride 10 ml QSHIFT@10,22 IV 04/21/25 22:00 05/01/25 20:52 10 ML Labetalol HCl 20 mg Q2HPRN PRN IV 04/24/25 15:30 04/27/25 22:00 20 MG Albuterol 2.5 mg Q3HPRN PRN NEB 04/24/25 16:15 05/01/25 19:21 2.5 MG Lorazepam 0.25 mg Q6HP PRN IV 04/24/25 18:30 05/01/25 12:06 0.25 MG Nicardipine/ Sodium Chloride 200 ml @ 50 mls/hr Q4H IV 04/25/25 09:45 Acetylcysteine 100 mg Q4HR NEB 04/25/25 14:00 05/01/25 19:21 100 MG Ipratropium [employer] 0.5 mg Q4HR NEB 04/25/25 18:00 05/01/25 19:21 0.5 MG Levalbuterol HCl 0.625 mg Q4HR NEB 04/26/25 10:00 05/01/25 19:22 0.625 MG Enoxaparin Sodium 40 mg DAILY SC 04/26/25 10:00 05/01/25 10:22 40 MG Micafungin Sodium 100 mg/Sodium Chloride 100 ml @ 100 mls/hr DAILY IV 04/29/25 10:00 05/01/25 10:22 100 MLS/HR Lactated Ringer's 1,000 ml @ 50 mls/hr Q20H IV 04/29/25 08:15 05/01/25 20:15 50 MLS/HR Diagnostic Test (Pha) 1 strip Q6HR 04/30/25 12:00 05/01/25 18:01 1 STRIP Insulin Human Regular FOLLOW SLIDING SCALE Q6HR MS 04/30/25 12:00 Dextrose 50 ml UD IV 04/30/25 09:00 Lidocaine 1 patch DAILY TOP 04/30/25 10:30 05/01/25 10:25 1 PATCH Morphine Sulfate 1 mg Q6HP PRN IV 04/30/25 10:30 05/01/25 21:05 1 MG Metoprolol Tartrate 2.5 mg Q4HR PRN IV 04/30/25 11:30 05/01/25 12:06 2.5 MG Metoclopramide HCl 5 mg Q8HR IV 04/30/25 22:00 05/02/25 14:01 05/01/25 20:52 5 MG Fat Emulsion Intravenous 100 ml/Sodium Phosphate 10 meq/ Potassium Acetate 60 meq/Potassium Phosphate 22 meq/ Calcium Gluconate 9.3 meq/Magnesium Sulfate 14 meq/ Multivitamins 10 ml/Chromium/ Copper/Manganese/ Zinc 1 ml/Amino Acids/Dextrose/ Purified Water 1,372 ml @ 57 mls/hr Q24H5M IV 05/01/25 22:00 05/02/25 21:59 05/01/25 21:00 57 MLS/HR Laboratory Results Laboratory Tests 05/01/25 04:00 Chemistry Test 05/01/25 04:00 Albumin 3.2 g/dL (3.2-4.8) Calcium Level 8.1 mg/dL (8.7-10.4) L Magnesium Level 1.9 mg/dL (1.6-2.6) Phosphorus Level 3.1 mg/dL (2.4-5.1) Total Protein 5.6 g/dL (5.7-8.2) L LFT Test 05/01/25 04:00 Alanine Aminotransferase (ALT) 64 U/L (7-40) H Alkaline Phosphatase 110 U/L (46-116) Aspartate Amino Transferase (AST) 32 U/L (13-40) Total Bilirubin 0.7 mg/dL (0.2-1.0) Urinalysis Test 04/15/25 15:45 Urine Color Light-orange (Yellow) Urine Clarity Ex.turbid (Clear) Urine pH 5.5 (5.0-9.0) Urine Specific [place] 1.028 (1.001-1.035) Urine Protein 1+ (Negative) H Urine Ketones Negative (Negative) Urine Blood 1+ /uL (Negative) H Urine Nitrite Negative (Negative) Urine Bilirubin Negative (Negative) Urine Urobilinogen 3 mg/dL (Negative) H Urine Leukocyte Esterase Negative /uL (Negative) Urine RBC 16 /hpf (0 - 4) Urine Microscopic WBC 1 /HPF (0-5) Urine Squamous Epithelial Cells Mod /hpf (<5) Urine Amorphous Crystals Few /hpf (None Seen) Urine Bacteria Few /hpf (None Seen) H Urine Hyaline Casts Few /lpf (0 - 2) Urine Mucus Few (None Seen) Urine Glucose Normal mg/dL (Normal) Microbiology Microbiology Date/Time Source Procedure Growth Status 04/30/25 14:30 Pleural Fluid Gram Stain - Final Resulted 04/30/25 14:30 Pleural Fluid Body Fluid Culture - Preliminary Resulted 04/22/25 15:28 Nose MRSA Screen - Final Complete 04/20/25 22:35 Sputum Endotracheal Wash Gram Stain - Final Complete 04/20/25 22:35 Respiratory Culture - Final Yeast, not Piedad albicans Complete Assessment/Plan Assessment/Plan Impression: Acute hypoxic respiratory failure Dependence on supplemental oxygen Atelectasis Lung collapse Pneumonia Hx of nicotine dependence Cachexia, BMI 17.4 Events: Remains on supplemental oxygen Currently on 2 LPM NC. Improving O2 requirements Continue to taper O2 as tolerated Respiratory rate of 30 BPM, O2 saturation 94-100% Chest x-ray today demonstrates small left pleural effusion, mild pulmonary vascular congestion. CT chest demonstrated improved aeration of left upper lobe Repeat bronchoscopy was performed on 04/30/25 with removal of mucous plugs in left lower lobe bronchus. Left thoracentesis was performed on 04/30/25 with removal of 250 mL serosanguineous fluid. See separate procedure notes for details of both procedures. Continue metoprolol for tachycardia. Follow up Cardiology recs S/p bronchoscopy on 04/26/25 with clearance of copious secretions in L1-L10. Endobronchial lesion in left mainstem bronchus, biopsied. Follow up biopsy results. Continue bronchodilators Mucolytics with Mucomyst Chest percussive therapy Continue antibiotics Continue antifungals Incentive spirometry NG tube in place TPN for nutritional support IV fluids with LR at 50 ml/hr. HOB elevation Aspiration precautions Labs and imaging reviewed. Rest of plan as noted below. Plan: Supplemental oxygen Titrate to keep O2 sats above 92%. Continue bronchodilators. Continue antibiotics Incentive spirometry Head of bed elevation Aspiration precautions NGT in place Monitor renal function. Monitor electrolytes. Supplement as necessary. Monitor ins and outs. DVT prophylaxis. Prognosis: Poor given patient's multiple co-morbidities. Condition: Critical Rest of plan per hospitalist and other consultants. A total of 35 minutes of critical care time was spent reviewing the patient record, examining the patient, making a diagnostic and therapeutic plan, discussing this plan with the medical personnel, following up on diagnostic studies and following the patient for clinical stability excluding any and all procedures. At least 50% of this time was spent in direct, [id number] contact. Thank you, JESÚS Ford, for allowing me to participate in this patient's care. Further recommendations will depend on the patient's clinical course. Please do not hesitate to contact me if you have any questions or concerns. This medical document was created using an electronic medical record system with [employer] dictation system. Although these documentations are being carefully reviewed, there may still be some phonetic and typographical changes. The errors are purely typographical, due to imperfection on the software program, and do not reflect any compromise in the patient's medical care. Plan discussed with: Patient, Other (RN Ria) Visit Coding Pulmonary Billing Provider: KARENA WESTFALL MD Date of Service if different f: May 01, 2025 Common Visit Codes: [id number] INP/OBS CARE(HIGH), [id number] CARE 30-74 MIN KARENA WESTFALL MD May 01, 2025 22:16
--- NOTE | 2025-05-02 11:43 | DVHPN2 ---
Subjective Patient denies any symptoms Reviewed: Care Plan, H&P, Labs, Medications Changes from previous H/P or p: No Changes General: Per HPI Objective Vitals Vital Signs Date Time Temp Pulse Resp B/P (MAP) Pulse Ox O2 Delivery O2 Flow Rate FiO2 05/02/25 07:30 88 40 138/60 (86) 99 05/02/25 07:00 Nasal Cannula 2.0 05/02/25 07:00 28 05/02/25 06:00 98.4 98.4 Intake/Output Intake and Output 05/02/25 07:00 Intake Total 2328 ml Output Total 1525 ml Balance 803 ml Intake Oral 80 ml IV Total 2248 ml Output Urine Total 1250 ml Stool Total 0 ml Gastric Drainage Total 275 ml # Bowel Movements 3 General Appearance: Alert, Cooperative, mild distress, Other (Underlying dementia) HEENT: PERRLA, Other Lungs: Other (Decreased air movement. Patient currently on supplemental oxygen. ) Cardiovascular: Normal S1, Normal S2 Abdomen: No tenderness, No hepatospenomegaly, Other (Reported BM yesterday evening. Hypoactive bowel sounds) Genitourinary: No Apparent Abnormalities (Grewal catheter) Musculoskeletal: Normal sensory function, Normal motor function Extremities: No edema, Normal pulses, No tenderness/swelling Neuro: Cranial nerves 3-12 NL, Other Skin: Dry, Intact, Wounds, Other (Surgical wound D&I) Psych/Mental Status: Mood NL Medications Current Medications Medications Dose Ordered Sig/Gregory Route Start Time Stop Time Status Last Admin Dose Admin Pantoprazole Sodium 40 mg DAILY IV 04/16/25 10:00 05/01/25 10:22 40 MG Piperacillin Sod/ Tazobactam Sod 100 ml @ 25 mls/hr Q8HR IV 04/16/25 22:00 05/02/25 05:13 25 MLS/HR Amino Acids 0 ml @ 0 mls/hr PER PHARMACY IV 04/18/25 17:45 Sodium Chloride 10 ml QSHIFT@10,22 IV 04/21/25 22:00 05/01/25 20:52 10 ML Labetalol HCl 20 mg Q2HPRN PRN IV 04/24/25 15:30 04/27/25 22:00 20 MG Albuterol 2.5 mg Q3HPRN PRN NEB 04/24/25 16:15 05/01/25 19:21 2.5 MG Lorazepam 0.25 mg Q6HP PRN IV 04/24/25 18:30 05/02/25 00:33 0.25 MG Nicardipine/ Sodium Chloride 200 ml @ 50 mls/hr Q4H IV 04/25/25 09:45 Acetylcysteine 100 mg Q4HR NEB 04/25/25 14:00 05/02/25 07:00 100 MG Ipratropium [place] 0.5 mg Q4HR [facility] 04/25/25 18:00 05/02/25 07:00 0.5 MG Levalbuterol HCl 0.625 mg Q4HR NEB 04/26/25 10:00 05/02/25 07:00 0.625 MG Enoxaparin Sodium 40 mg DAILY SC 04/26/25 10:00 05/01/25 10:22 40 MG Micafungin Sodium 100 mg/Sodium Chloride 100 ml @ 100 mls/hr DAILY IV 04/29/25 10:00 05/01/25 10:22 100 MLS/HR Lactated Ringer's 1,000 ml @ 50 mls/hr Q20H IV 04/29/25 08:15 05/01/25 20:15 50 MLS/HR Diagnostic Test (Pha) 1 strip Q6HR 04/30/25 12:00 05/02/25 05:01 1 STRIP Insulin Human Regular FOLLOW SLIDING SCALE Q6HR RI 04/30/25 12:00 Dextrose 50 ml UD IV 04/30/25 09:00 Lidocaine 1 patch DAILY TOP 04/30/25 10:30 05/01/25 10:25 1 PATCH Morphine Sulfate 1 mg Q6HP PRN IV 04/30/25 10:30 05/01/25 21:05 1 MG Metoprolol Tartrate 2.5 mg Q4HR PRN IV 04/30/25 11:30 05/01/25 12:06 2.5 MG Metoclopramide HCl 5 mg Q8HR IV 04/30/25 22:00 05/02/25 14:01 05/02/25 05:13 5 MG Fat Emulsion Intravenous 100 ml/Sodium Phosphate 10 meq/ Potassium Acetate 60 meq/Potassium Phosphate 22 meq/ Calcium Gluconate 9.3 meq/Magnesium Sulfate 14 meq/ Multivitamins 10 ml/Chromium/ Copper/Manganese/ Zinc 1 ml/Amino Acids/Dextrose/ Purified Water 1,372 ml @ 57 mls/hr Q24H5M IV 05/01/25 22:00 05/02/25 21:59 05/01/25 21:00 57 MLS/HR Famotidine 20 mg DAILY IV 05/02/25 10:00 Laboratory Results Laboratory Tests 05/01/25 04:00 05/02/25 03:45 Chemistry Test 05/02/25 03:45 Albumin 3.4 g/dL (3.2-4.8) Calcium Level 8.5 mg/dL (8.7-10.4) L Magnesium Level 2.0 mg/dL (1.6-2.6) Phosphorus Level 2.7 mg/dL (2.4-5.1) Total Protein 6.1 g/dL (5.7-8.2) LFT Test 05/02/25 03:45 Alanine Aminotransferase (ALT) 58 U/L (7-40) H Alkaline Phosphatase 101 U/L (46-116) Aspartate Amino Transferase (AST) 32 U/L (13-40) Total Bilirubin 0.7 mg/dL (0.2-1.0) Urinalysis Test 04/15/25 15:45 Urine Color Light-orange (Yellow) Urine Clarity Ex.turbid (Clear) Urine pH 5.5 (5.0-9.0) Urine Specific [place] 1.028 (1.001-1.035) Urine Protein 1+ (Negative) H Urine Ketones Negative (Negative) Urine Blood 1+ /uL (Negative) H Urine Nitrite Negative (Negative) Urine Bilirubin Negative (Negative) Urine Urobilinogen 3 mg/dL (Negative) H Urine Leukocyte Esterase Negative /uL (Negative) Urine RBC 16 /hpf (0 - 4) Urine Microscopic WBC 1 /HPF (0-5) Urine Squamous Epithelial Cells Mod /hpf (<5) Urine Amorphous Crystals Few /hpf (None Seen) Urine Bacteria Few /hpf (None Seen) H Urine Hyaline Casts Few /lpf (0 - 2) Urine Mucus Few (None Seen) Urine Glucose Normal mg/dL (Normal) Microbiology Microbiology Date/Time Source Procedure Growth Status 04/30/25 14:30 Pleural Fluid Gram Stain - Final Resulted 04/30/25 14:30 Pleural Fluid Body Fluid Culture - Preliminary Resulted 04/22/25 15:28 Nose MRSA Screen - Final Complete 04/20/25 22:35 Sputum Endotracheal Wash Gram Stain - Final Complete 04/20/25 22:35 Respiratory Culture - Final Yeast, not Piedad albicans Complete Labs and/or images reviewed: Labs reviewed by me, Image(s) reviewed by me Assessment/Plan Assessment/Plan Impression: -choledocholithiasis -acute pancreatitis -small-bowel obstruction -dementia -cachexia -sepsis -COPD -GERD -Post op delirium -Accelerated HTN -A. fib Plan: Events: Patient currently on nasal cannula 4 L/min. Chest x-ray reveals at left lung made open. Start PO meds, ice chips/ water -continue IV Reglan, start colace -out of bed to chair with physical therapy -Continue TPN -Pulmonology consult- case discussed -Continue Zosyn, micafungin -PPI -Antihypertensives -pain management: start percocet -continue bronchodilators, Mucomyst -repeat labs and chest x-ray in a.m. Total time spent with patient discussing and formulating plan of care: 35 minutes. This medical document was created using an electronic medical record system with [employer] dictation system. Although this document has been carefully reviewed, there may still be some phonetic and typographical errors. These areas are purely typographical due to imperfections of the software programs, and do not reflect any compromise in the patient's medical care. Plan discussed with: Patient, Other (RN) My Orders Orders - JAYDEN HILL NP Procedure Category Date Status Time Chest Percussion Tx RT 05/01/25 Logged Initi 13:57 Metoprolol Tartrate PHA 05/02/25 Verified Tablet (Lopressor Ta 10:00 Memantine Tablet PHA 05/02/25 Verified (Namenda Tablet) 10:00 Complete Blood Count LAB 05/03/25 Verified 04:00 Date of Service: May 02, 2025 Billing Provider: JAYDEN HILL NP Common Visit Codes: [id number] INP/OBS CARE(HIGH) JAYDEN HILL NP May 02, 2025 10:02
[2025-05-02 12:07] LABS: Glucose, Body Fluid 126.0 mg/dL (.); LD, Body Fluid 221.0 IU/L (.)
[2025-05-02] MEDS: MEMANTINE HCL 5 MG TAB PO SCH (12:30)
[2025-05-02] MEDS: DOCUSATE SOD 100 MG CAP PO SCH (12:31)
--- NOTE | 2025-05-02 16:00 | DVHPN2 ---
Progress Note Date Seen: May 02, 2025 Resident Creating Document: HOLLY DEAN RESIDENT Medical Necessity Reason Pt with a Central, PICC or Fol: Yes Subjective Review of Systems Patient seen and examined at bedside Reported to have small bowel movement yesterday Downgraded to telemetry H&H is stable Does not report of any abdominal pain nausea or vomiting Objective vital signs Vital Sign Date Time Temp Pulse Resp B/P (MAP) Pulse Ox O2 Delivery O2 Flow Rate FiO2 05/02/25 14:46 89 18 99 05/02/25 13:00 133/54 05/02/25 12:00 Nasal Cannula* 2 28 05/02/25 09:00 98.8 98.8 Total Intake and Output 05/01/25 05/01/25 05/02/25 15:00 23:00 07:00 Intake Total 981 ml 922 ml 557 ml Output Total 0 ml 775 ml 750 ml Balance 981 ml 147 ml -193 ml medications Current Medications Medications Dose Ordered Sig/Gregory Route Start Time Stop Time Status Last Admin Dose Admin Pantoprazole Sodium 40 mg DAILY IV 04/16/25 10:00 05/02/25 10:49 40 MG Piperacillin Sod/ Tazobactam Sod 100 ml @ 25 mls/hr Q8HR IV 04/16/25 22:00 05/02/25 15:11 25 MLS/HR Amino Acids 0 ml @ 0 mls/hr PER PHARMACY IV 04/18/25 17:45 Sodium Chloride 10 ml QSHIFT@10,22 IV 04/21/25 22:00 05/02/25 10:50 10 ML Albuterol 2.5 mg Q3HPRN PRN NEB 04/24/25 16:15 05/01/25 19:21 2.5 MG Lorazepam 0.25 mg Q6HP PRN IV 04/24/25 18:30 05/02/25 00:33 0.25 MG Nicardipine/ Sodium Chloride 200 ml @ 50 mls/hr Q4H IV 04/25/25 09:45 Acetylcysteine 100 mg Q4HR NEB 04/25/25 14:00 05/02/25 14:46 100 MG Ipratropium [place] 0.5 mg Q4HR NEB 04/25/25 18:00 05/02/25 14:46 0.5 MG Levalbuterol HCl 0.625 mg Q4HR NEB 04/26/25 10:00 05/02/25 14:46 0.625 MG Micafungin Sodium 100 mg/Sodium Chloride 100 ml @ 100 mls/hr DAILY IV 04/29/25 10:00 05/02/25 10:50 100 MLS/HR Lactated Ringer's 1,000 ml @ 50 mls/hr Q20H IV 04/29/25 08:15 05/01/25 20:15 50 MLS/HR Diagnostic Test (Pha) 1 strip Q6HR 04/30/25 12:00 05/02/25 12:00 1 STRIP Insulin Human Regular FOLLOW SLIDING SCALE Q6HR SC 04/30/25 12:00 Dextrose 50 ml UD IV 04/30/25 09:00 Lidocaine 1 patch DAILY TOP 04/30/25 10:30 05/02/25 10:58 1 PATCH Morphine Sulfate 1 mg Q6HP PRN IV 04/30/25 10:30 05/02/25 10:49 1 MG Metoprolol Tartrate 2.5 mg Q4HR PRN IV 04/30/25 11:30 05/01/25 12:06 2.5 MG Fat Emulsion Intravenous 100 ml/Sodium Phosphate 10 meq/ Potassium Acetate 60 meq/Potassium Phosphate 22 meq/ Calcium Gluconate 9.3 meq/Magnesium Sulfate 14 meq/ Multivitamins 10 ml/Chromium/ Copper/Manganese/ Zinc 1 ml/Amino Acids/Dextrose/ Purified Water 1,372 ml @ 57 mls/hr Q24H5M IV 05/01/25 22:00 05/02/25 21:59 05/01/25 21:00 57 MLS/HR Metoprolol Tartrate 12.5 mg BID PO 05/02/25 10:00 05/02/25 11:23 12.5 MG Memantine 5 mg Q12HR PO 05/02/25 10:00 05/02/25 12:30 5 MG Oxycodone/ Acetaminophen 1 tab Q6HP PRN PO 05/02/25 10:00 Docusate Sodium 100 mg BID PO 05/02/25 10:00 05/02/25 12:31 100 MG Fat Emulsion Intravenous 100 ml/Sodium Phosphate 20 meq/ Potassium Chloride 10 meq/ Potassium Acetate 60 meq/Potassium Phosphate 22 meq/ Calcium Gluconate 9.3 meq/Magnesium Sulfate 14 meq/ Multivitamins 10 ml/Chromium/ Copper/Manganese/ Zinc 1 ml/Amino Acids/Dextrose/ Purified Water 1,379.5 ml @ 57 mls/hr [id number] IV 05/02/25 22:00 05/03/25 21:59 Enoxaparin Sodium 30 mg DAILY SC 05/03/25 10:00 Examination Gen - no pallor, no scleral icterus Skin - Patients skin is warm and dry. HEENT - normocephalic, atraumatic, dry mucous membranes. Neck - supple, no lymphadenopathy Pulmonary - improved breath sounds in the left side, right side sounds without any crackles or wheezing cardiovascular - regular S1,S2 heard GI - soft abdomen status post exploratory laparotomy midline incision covered in a sterile dressing. Bowel sounds normoactive Neurological - Patient is A&O x2, following commands but is slightly confused likely in delirium laboratory and microbiology Laboratory Tests 05/02/25 03:45 05/01/25 04:00 Test 05/02/25 03:45 Range/Units Serum Glucose 124 H 74-106 mg/dL Microbiology Date/Time Source Procedure Growth Status 04/30/25 14:30 Pleural Fluid Gram Stain - Final Resulted 04/30/25 14:30 Pleural Fluid Body Fluid Culture - Preliminary Resulted 04/22/25 15:28 Nose MRSA Screen - Final Complete 04/20/25 22:35 Sputum Endotracheal Wash Gram Stain - Final Complete 04/20/25 22:35 Respiratory Culture - Final Yeast, not Piedad albicans Complete Problem List/Assessment/Plan Problem List/Assessment/Plan Assessment 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 Cui Plan discussed with: Patient, Other ([facility] Roll[place]) Dietary Evaluation Review Recommendations by RD: PPN/TPN Comments: 1) Increase TPN to meet at least 75% estimated daily needs 2) Advance to cardiac diet when medically feasible 3) Follow-up with gastroenterology and neurology 4) Continue to monitor I&O, labs, and skin integrity Expected Outcomes/Goals: 1) nutrition support to meet at least 75% estimated daily needs 2) labs to improve 3) diet to advance 4) gradual wt gain 5) f/u in 2-3 days HOLLY DEAN RESIDENT May 02, 2025 16:00
[2025-05-02 19:42] LABS: Base Excess -10.8 mmol/L (-2.0-3.0)
[2025-05-02] MEDS: ETOMIDATE (2MG/ML) 20ML VIAL IV ONE ×2 (19:52→20:45)
[2025-05-02] MEDS: ROCURONIUM 10MG/ML 10ML VIAL IV ONE ×2 (19:53→20:10)
[2025-05-02] MEDS: MIDAZOLAM DRIP 100 mg/100mL NS 100 ML IV ONE (20:23)
[2025-05-02] MEDS: PROPOFOL 100 ML IV ONE (20:23)
--- NOTE | 2025-05-02 20:24 | DVHNC2 ---
Intubation Indication: Respiratory Insufficiency, Airway Protection Prep: Preoxygenation Pretreated with: Other (Etomidate) Medicated with: Nothing Intubation Approach: Orotracheal Intubation size: cm (7) Notes A time out was performed. My hands were washed immediately prior to the procedure. i wore gloves throughout the procedure. The patient was placed on a quality assurance monitor final including continuous pulse oximetry. Rapid Sequence Intubation was conducted. The patient received _20 mg of _ for induction and _mg of _ for adequate paralysis. Cricoid pressure was maintained from time induction agent was given to time of cuff balloon inflation. Using a _ glidoscope and a size _7 endotracheal tube with stylet, the patient was intubated on the 1st_ attempt. The stylet was removed and cuff balloon was inflated. Appropriate endotracheal tube position was confirmed by direct visualization of vocal cord passage, fogging of the tube, CO2 colormetric indicator and symmetric breath sounds. The tube was secured at _22 cm at the lips. Post intubation chest x-ray is pending at this time. Complications none apparent. Rocuronium was given after the ET tube placement Date of Service: May 02, 2025 Billing Provider: PRITI MONTGOMERY DO Common Visit Codes: PROCEDURE ONLY AYLA CHEN RESIDENT May 02, 2025 20:24 PRITI MONTGOMERY DO May 03, 2025 02:51
--- NOTE | 2025-05-02 20:36 | DVH ---
CHEST RADIOGRAPH Indication: change in condition Technique: Single frontal view of the chest was obtained Comparison: XY CHEST PORTABLE on DOS: 05/02/25, XY CHEST PORTABLE on DOS: 05/02/25, XY CHEST XRAY 1 V IEW on DOS: 05/01/25 FINDINGS: Lines and Tubes: Gaseous distention of the stomach consider place in the enteric tube. AED pads over the left chest Lungs: No focal consolidation. Pleura: No effusion. No pneumothorax. Cardiomediastinal contours: Unremarkable Bones: No acute osseous abnormality. IMPRESSION: 1. AED pads over the left chest 2. Gaseous distended stomach consider placement of an enteric tube.
[2025-05-02] MEDS: fentaNYL Drip 2500mCg/250mlNS 250 ML IV ONE (20:37)
[2025-05-02 20:42] LABS: Chloride 105 mmol/L (98-107); Potassium 3.9 mmol/L (3.5-5.1); Sodium 142 mmol/L (136-145)
[2025-05-02 20:43] LABS: Anion Gap 11 (5-15); Carbon Dioxide 26 mmol/L (20-31)
[2025-05-02 20:44] LABS: Calcium 8.5 mg/dL (8.7-10.4)
[2025-05-02] MEDS: PROPOFOL 100 ML IV SCH (20:45)
[2025-05-02] MEDS: MIDAZOLAM DRIP 100 mg/100mL NS 100 ML IV SCH (20:45)
--- NOTE | 2025-05-02 20:45 | DVH ---
CHEST RADIOGRAPH Indication: intubation Technique: Single frontal view of the chest was obtained Comparison: XY CHEST PORTABLE on DOS: 05/02/25, XY CHEST PORTABLE on DOS: 05/02/25, XY CHEST PORTABLE on DOS: 05/02/25 FINDINGS: Lines and Tubes: Endotracheal tube 7.2 cm above the choco. PICC line from right arm in place with th e tip in the superior vena cava. Enteric tube below the left diaphragm in the stomach. Lungs: No focal consolidation. AED pads over the left chest. Hiatal hernia noted left lower lung fiel d Pleura: No effusion. No pneumothorax. Cardiomediastinal contours: Unremarkable Bones: No acute osseous abnormality. IMPRESSION: 1. Endotracheal tube 7.2 cm above the choco. 2. Pick line from the right arm in place the superior vena cava. 3. Enteric tube below the left diaphragm in the stomach. 4. Bibasilar airspace disease consolidation left base may represent atelectasis.
[2025-05-02 20:48] LABS: BUN/Creatinine Ratio 35.6 (10.0-20.0); Blood Urea Nitrogen 26 mg/dL (9-23); Glucose 239 mg/dL (74-106)
[2025-05-02 20:52] LABS: Lactic Acid w/Reflex 3.3 mmol/L (0.4-2.0)
--- NOTE | 2025-05-02 21:09 | DVH ---
CHEST RADIOGRAPH Indication: s/p intubation Technique: Single frontal view of the chest was obtained Comparison: XY CHEST PORTABLE on DOS: 05/02/25, XY CHEST PORTABLE on DOS: 05/02/25, XY CHEST PORTABLE on DOS: 05/02/25 FINDINGS: Lines and Tubes: Endotracheal tube 5.6 cm above the choco. PICC line from right arm is in place with the tip in the superior vena cava. Enteric tube below the left diaphragm tip is not visualized study . Lungs: No focal consolidation. Pleura: No effusion. No pneumothorax. Cardiomediastinal contours: Unremarkable Bones: No acute osseous abnormality. IMPRESSION: 1. Endotracheal tube is in place 5.6 cm above the choco. 2. PICC line from right arm in place with the tip in the superior vena cava. 3. Enteric tube below the left diaphragm but not visualized on this study. Most likely is in the stom ach. 4. Cardiopulmonary findings are unchanged.
--- NOTE | 2025-05-02 21:19 | DVH ---
Date: 05/02/2025 08:22 PM Examination: XY KUB ABDOMEN SINGLE VIEW History: r/o obstruction Comparison: XY KUB ABDOMEN SINGLE VIEW on DOS: 04/27/25, XY KUB ABDOMEN SINGLE VIEW on DOS: 04/24/25, XY KUB ABDOMEN SINGLE VIEW on DOS: 04/20/25 TECHNIQUE: Frontal views of the abdomen was obtained. FINDINGS: Dilated small bowel is noted in the left upper abdomen can not exclude small bowel obstruction recomm end follow-up. The lung bases are unremarkable. Bilateral bipolar hip prostheses are in place. Enteric tube is in the stomach IMPRESSION: 1. Dilated small bowel in the left upper abdomen recommend follow-up study to exclude developing smal l bowel obstruction 2. Enteric tube is in the stomach. Stomach is decompressed when compared to the earlier films of 04/04.
--- NOTE | 2025-05-02 22:09 | DVHPN2 ---
Progress Note Date Seen: May 02, 2025 Medical Necessity Reason Pt with a Central, PICC or Fol: Yes Objective vital signs Vital Sign Date Time Temp Pulse Resp B/P (MAP) Pulse Ox O2 Delivery O2 Flow Rate FiO2 05/02/25 20:12 113 26 136/69 (91) 100 100 05/02/25 17:00 98.1 98.1 05/02/25 12:00 Nasal Cannula* 2 Total Intake and Output 05/01/25 05/01/25 05/02/25 15:00 23:00 07:00 Intake Total 981 ml 922 ml 557 ml Output Total 0 ml 775 ml 750 ml Balance 981 ml 147 ml -193 ml medications Current Medications Medications Dose Ordered Sig/Gregory Route Start Time Stop Time Status Last Admin Dose Admin Pantoprazole Sodium 40 mg DAILY IV 04/16/25 10:00 05/02/25 10:49 40 MG Piperacillin Sod/ Tazobactam Sod 100 ml @ 25 mls/hr Q8HR IV 04/16/25 22:00 05/02/25 15:11 25 MLS/HR Amino Acids 0 ml @ 0 mls/hr PER PHARMACY IV 04/18/25 17:45 Sodium Chloride 10 ml QSHIFT@10,22 IV 04/21/25 22:00 05/02/25 10:50 10 ML Albuterol 2.5 mg Q3HPRN PRN NEB 04/24/25 16:15 05/01/25 19:21 2.5 MG Lorazepam 0.25 mg Q6HP PRN IV 04/24/25 18:30 05/02/25 00:33 0.25 MG Nicardipine/ Sodium Chloride 200 ml @ 50 mls/hr Q4H IV 04/25/25 09:45 Acetylcysteine 100 mg Q4HR NEB 04/25/25 14:00 05/02/25 21:48 100 MG Ipratropium [place] 0.5 mg Q4HR NEB 04/25/25 18:00 05/02/25 21:48 0.5 MG Levalbuterol HCl 0.625 mg Q4HR NEB 04/26/25 10:00 05/02/25 21:48 0.625 MG Micafungin Sodium 100 mg/Sodium Chloride 100 ml @ 100 mls/hr DAILY IV 04/29/25 10:00 05/02/25 10:50 100 MLS/HR Lactated Ringer's 1,000 ml @ 50 mls/hr Q20H IV 04/29/25 08:15 05/02/25 17:46 50 MLS/HR Diagnostic Test (Pha) 1 strip Q6HR 04/30/25 12:00 05/02/25 18:14 1 STRIP Insulin Human Regular FOLLOW SLIDING SCALE Q6HR SC 04/30/25 12:00 Dextrose 50 ml UD IV 04/30/25 09:00 Lidocaine 1 patch DAILY TOP 04/30/25 10:30 05/02/25 10:58 1 PATCH Morphine Sulfate 1 mg Q6HP PRN IV 04/30/25 10:30 05/02/25 17:58 1 MG Metoprolol Tartrate 2.5 mg Q4HR PRN IV 04/30/25 11:30 05/01/25 12:06 2.5 MG Metoprolol Tartrate 12.5 mg BID PO 05/02/25 10:00 05/02/25 11:23 12.5 MG Memantine 5 mg Q12HR PO 05/02/25 10:00 05/02/25 12:30 5 MG Oxycodone/ Acetaminophen 1 tab Q6HP PRN PO 05/02/25 10:00 Docusate Sodium 100 mg BID PO 05/02/25 10:00 05/02/25 12:31 100 MG Fat Emulsion Intravenous 100 ml/Sodium Phosphate 20 meq/ Potassium Chloride 10 meq/ Potassium Acetate 60 meq/Potassium Phosphate 22 meq/ Calcium Gluconate 9.3 meq/Magnesium Sulfate 14 meq/ Multivitamins 10 ml/Chromium/ Copper/Manganese/ Zinc 1 ml/Amino Acids/Dextrose/ Purified Water 1,379.5 ml @ 57 mls/hr [id number] IV 05/02/25 22:00 05/03/25 21:59 Enoxaparin Sodium 30 mg DAILY SC 05/03/25 10:00 Propofol 100 ml @ 1.296 mls/ hr Q24H IV 05/02/25 20:45 Midazolam HCl 100 ml @ 1 mls/hr Q24H IV 05/02/25 20:45 Fentanyl Citrate 250 ml @ 2.5 mls/hr Q24H IV 05/02/25 20:45 laboratory and microbiology Laboratory Tests 05/02/25 20:04 05/01/25 04:00 Test 05/02/25 20:04 Range/Units Serum Glucose 239 H 74-106 mg/dL Microbiology Date/Time Source Procedure Growth Status 04/30/25 14:30 Pleural Fluid Gram Stain - Final Resulted 04/30/25 14:30 Pleural Fluid Body Fluid Culture - Preliminary Resulted 04/22/25 15:28 Nose MRSA Screen - Final Complete 04/20/25 22:35 Sputum Endotracheal Wash Gram Stain - Final Complete 04/20/25 22:35 Respiratory Culture - Final Yeast, not Piedad albicans Complete Problem List/Assessment/Plan Problem List/Assessment/Plan AFEBRILE VSS BM + ABD SOFT NON TENDER WOUND DRESSING DRY NO NV ALLOW CLEAR LIQUIDS CONTINUE SUPPORTIVE CARE FAMILY AWARE OF PT CONDITION NURSE AT BEDSIDE ONGOING PULM EVAL Plan discussed with: Other My Orders My Orders Orders - GLORIA MCNEAL MD Procedure Category Date Status Time Clear Liq Diet DIET 05/02/25 Transmitted Dinner Dietary Evaluation Review Recommendations by RD: PPN/TPN Comments: 1) Increase TPN to meet at least 75% estimated daily needs 2) Advance to cardiac diet when medically feasible 3) Follow-up with gastroenterology and neurology 4) Continue to monitor I&O, labs, and skin integrity Expected Outcomes/Goals: 1) nutrition support to meet at least 75% estimated daily needs 2) labs to improve 3) diet to advance 4) gradual wt gain 5) f/u in 2-3 days GLORIA MCNEAL MD May 02, 2025 22:09
[2025-05-02 22:17] LABS: Base Excess -1.0 mmol/L (-2.0-3.0)
[2025-05-02] MEDS: fentaNYL Drip 2500mCg/250mlNS 250 ML IV SCH (22:49)
[2025-05-02] MEDS: LACTATED RINGER'S 500 ML IV ONE (22:52)
--- NOTE | 2025-05-02 23:19 | DVHPN2 ---
Subjective DOS: 05/02/2025 Patient seen and examined at bedside. Remains on supplemental oxygen Overnight events reviewed. Reviewed: Care Plan, H&P, Labs, Medications Changes from previous H/P or p: No Changes General: Per HPI Objective Vitals Vital Signs Date Time Temp Pulse Resp B/P (MAP) Pulse Ox O2 Delivery O2 Flow Rate FiO2 05/02/25 22:30 103 83/56 05/02/25 21:48 24 100 80 05/02/25 17:00 98.1 98.1 05/02/25 12:00 Nasal Cannula* 2 Intake/Output Intake and Output 05/02/25 07:00 Intake Total 2460 ml Output Total 1525 ml Balance 935 ml Intake Oral 80 ml IV Total 2380 ml Output Urine Total 1250 ml Stool Total 0 ml Gastric Drainage Total 275 ml # Bowel Movements 3 General Appearance: Alert, Cooperative, mild distress, Other (Underlying dementia) HEENT: PERRLA, Other Lungs: Other (Decreased air movement. Patient currently on supplemental oxygen. ) Cardiovascular: Normal S1, Normal S2 Abdomen: No tenderness, No hepatospenomegaly, Other (Reported BM yesterday evening. Hypoactive bowel sounds) Genitourinary: No Apparent Abnormalities (Grewal catheter) Musculoskeletal: Normal sensory function, Normal motor function Extremities: No edema, Normal pulses, No tenderness/swelling Neuro: Cranial nerves 3-12 NL, Other Skin: Dry, Intact, Wounds, Other (Surgical wound D&I) Psych/Mental Status: Mood NL Medications Current Medications Medications Dose Ordered Sig/Gregory Route Start Time Stop Time Status Last Admin Dose Admin Pantoprazole Sodium 40 mg DAILY IV 04/16/25 10:00 05/02/25 10:49 40 MG Piperacillin Sod/ Tazobactam Sod 100 ml @ 25 mls/hr Q8HR IV 04/16/25 22:00 05/02/25 22:14 25 MLS/HR Amino Acids 0 ml @ 0 mls/hr PER PHARMACY IV 04/18/25 17:45 Sodium Chloride 10 ml QSHIFT@10,22 IV 04/21/25 22:00 05/02/25 23:08 10 ML Albuterol 2.5 mg Q3HPRN PRN NEB 04/24/25 16:15 05/01/25 19:21 2.5 MG Lorazepam 0.25 mg Q6HP PRN IV 04/24/25 18:30 05/02/25 00:33 0.25 MG Nicardipine/ Sodium Chloride 200 ml @ 50 mls/hr Q4H IV 04/25/25 09:45 Acetylcysteine 100 mg Q4HR NEB 04/25/25 14:00 05/02/25 21:48 100 MG Ipratropium [place] 0.5 mg Q4HR NEB 04/25/25 18:00 05/02/25 21:48 0.5 MG Levalbuterol HCl 0.625 mg Q4HR NEB 04/26/25 10:00 05/02/25 21:48 0.625 MG Micafungin Sodium 100 mg/Sodium Chloride 100 ml @ 100 mls/hr DAILY IV 04/29/25 10:00 05/02/25 10:50 100 MLS/HR Lactated Ringer's 1,000 ml @ 50 mls/hr Q20H IV 04/29/25 08:15 05/02/25 17:46 50 MLS/HR Diagnostic Test (Pha) 1 strip Q6HR 04/30/25 12:00 05/02/25 18:14 1 STRIP Insulin Human Regular FOLLOW SLIDING SCALE Q6HR SC 04/30/25 12:00 Dextrose 50 ml UD IV 04/30/25 09:00 Lidocaine 1 patch DAILY TOP 04/30/25 10:30 05/02/25 10:58 1 PATCH Morphine Sulfate 1 mg Q6HP PRN IV 04/30/25 10:30 05/02/25 17:58 1 MG Metoprolol Tartrate 2.5 mg Q4HR PRN IV 04/30/25 11:30 05/01/25 12:06 2.5 MG Metoprolol Tartrate 12.5 mg BID PO 05/02/25 10:00 05/02/25 11:23 12.5 MG Memantine 5 mg Q12HR PO 05/02/25 10:00 05/02/25 22:00 5 MG Oxycodone/ Acetaminophen 1 tab Q6HP PRN PO 05/02/25 10:00 Docusate Sodium 100 mg BID PO 05/02/25 10:00 05/02/25 22:00 100 MG Fat Emulsion Intravenous 100 ml/Sodium Phosphate 20 meq/ Potassium Chloride 10 meq/ Potassium Acetate 60 meq/Potassium Phosphate 22 meq/ Calcium Gluconate 9.3 meq/Magnesium Sulfate 14 meq/ Multivitamins 10 ml/Chromium/ Copper/Manganese/ Zinc 1 ml/Amino Acids/Dextrose/ Purified Water 1,379.5 ml @ 57 mls/hr [id number] IV 05/02/25 22:00 05/03/25 21:59 05/02/25 22:42 57 MLS/HR Enoxaparin Sodium 30 mg DAILY SC 05/03/25 10:00 Propofol 100 ml @ 1.296 mls/ hr Q24H IV 05/02/25 20:45 05/02/25 20:45 1.296 MLS/HR Midazolam HCl 100 ml @ 1 mls/hr Q24H IV 05/02/25 20:45 05/02/25 20:45 1 MLS/HR Fentanyl Citrate 250 ml @ 2.5 mls/hr Q24H IV 05/02/25 20:45 05/02/25 22:49 2.5 MLS/HR Laboratory Results Laboratory Tests 05/01/25 04:00 05/02/25 20:04 Chemistry Test 05/02/25 03:45 05/02/25 20:04 Albumin 3.4 g/dL (3.2-4.8) Calcium Level 8.5 mg/dL (8.7-10.4) L 8.5 mg/dL (8.7-10.4) L Magnesium Level 2.0 mg/dL (1.6-2.6) Phosphorus Level 2.7 mg/dL (2.4-5.1) Total Protein 6.1 g/dL (5.7-8.2) LFT Test 05/02/25 03:45 Alanine Aminotransferase (ALT) 58 U/L (7-40) H Alkaline Phosphatase 101 U/L (46-116) Aspartate Amino Transferase (AST) 32 U/L (13-40) Total Bilirubin 0.7 mg/dL (0.2-1.0) Urinalysis Test 04/15/25 15:45 Urine Color Light-orange (Yellow) Urine Clarity Ex.turbid (Clear) Urine pH 5.5 (5.0-9.0) Urine Specific [place] 1.028 (1.001-1.035) Urine Protein 1+ (Negative) H Urine Ketones Negative (Negative) Urine Blood 1+ /uL (Negative) H Urine Nitrite Negative (Negative) Urine Bilirubin Negative (Negative) Urine Urobilinogen 3 mg/dL (Negative) H Urine Leukocyte Esterase Negative /uL (Negative) Urine RBC 16 /hpf (0 - 4) Urine Microscopic WBC 1 /HPF (0-5) Urine Squamous Epithelial Cells Mod /hpf (<5) Urine Amorphous Crystals Few /hpf (None Seen) Urine Bacteria Few /hpf (None Seen) H Urine Hyaline Casts Few /lpf (0 - 2) Urine Mucus Few (None Seen) Urine Glucose Normal mg/dL (Normal) Blood Gas Results Test 05/02/25 19:33 05/02/25 21:58 Arterial Blood pH 6.988 (7.350-7.450) 7.374 (7.350-7.450) FiO2 % 40.0 100.0 Microbiology Microbiology Date/Time Source Procedure Growth Status 04/30/25 14:30 Pleural Fluid Gram Stain - Final Resulted 04/30/25 14:30 Pleural Fluid Body Fluid Culture - Preliminary Resulted 04/22/25 15:28 Nose MRSA Screen - Final Complete 04/20/25 22:35 Sputum Endotracheal Wash Gram Stain - Final Complete 04/20/25 22:35 Respiratory Culture - Final Yeast, not Piedad albicans Complete Assessment/Plan Assessment/Plan Impression: Acute hypoxic respiratory failure Dependence on supplemental oxygen Atelectasis Lung collapse Pneumonia Hx of nicotine dependence Cachexia, BMI 17.4 Events: Remains on supplemental oxygen Remains on 2 LPM NC. Improving O2 requirements Continue to taper O2 as tolerated Chest x-ray reviewed. CT chest demonstrated improved aeration of left upper lobe Repeat bronchoscopy was performed on 04/30/25 with removal of mucous plugs in left lower lobe bronchus. Left thoracentesis was performed on 04/30/25 with removal of 250 mL serosanguineous fluid. See separate procedure notes for details of both procedures. Continue metoprolol for tachycardia. Follow up Cardiology recs S/p bronchoscopy on 04/26/25 with clearance of copious secretions in L1-L10. Endobronchial lesion in left mainstem bronchus, biopsied. Follow up biopsy results. Continue bronchodilators Mucolytics with Mucomyst Chest percussive therapy Continue antibiotics Continue antifungals Incentive spirometry NG tube in place TPN for nutritional support IV fluids with LR at 50 ml/hr. HOB elevation Aspiration precautions Labs and imaging reviewed. Rest of plan as noted below. Plan: Supplemental oxygen Titrate to keep O2 sats above 92%. Continue bronchodilators. Continue antibiotics Incentive spirometry Head of bed elevation Aspiration precautions NGT in place Monitor renal function. Monitor electrolytes. Supplement as necessary. Monitor ins and outs. DVT prophylaxis. Prognosis: Poor given patient's multiple co-morbidities. Condition: Critical Rest of plan per hospitalist and other consultants. A total of 35 minutes of critical care time was spent reviewing the patient record, examining the patient, making a diagnostic and therapeutic plan, discussing this plan with the medical personnel, following up on diagnostic studies and following the patient for clinical stability excluding any and all procedures. At least 50% of this time was spent in direct, [id number] contact. Thank you, JESÚS Ford, for allowing me to participate in this patient's care. Further recommendations will depend on the patient's clinical course. Please do not hesitate to contact me if you have any questions or concerns. This medical document was created using an electronic medical record system with [employer] dictation system. Although these documentations are being carefully reviewed, there may still be some phonetic and typographical changes. The errors are purely typographical, due to imperfection on the software program, and do not reflect any compromise in the patient's medical care. Plan discussed with: Patient, Other (RN) Visit Coding Pulmonary Billing Provider: KARENA WESTFALL MD Date of Service if different f: May 02, 2025 Common Visit Codes: [id number] INP/OBS CARE(HIGH), [id number] CARE 30-74 MIN KARENA WESTFALL MD May 02, 2025 23:19
[2025-05-03] VITALS (82 sets, daily range): BP systolic 80–153; BP diastolic 26–65; PULSE 81–111; RESP 15–31; TEMP 96.4–98.5; O2SAT 10–100
[2025-05-03 04:14] LABS: Hematocrit 27.4 % (36.0-46.0); Hemoglobin 9.2 g/dL (12.2-16.2); Mean Corpuscular Hemoglobin 33.8 pg (28.0-32.0); Mean Corpuscular Volume 100.2 fL (80.0-100.0); Nucleated Red Blood Cells % 0.1 %
[2025-05-03 04:29] LABS: Carbon Dioxide 26 mmol/L (20-31); Chloride 106 mmol/L (98-107)
[2025-05-03 04:30] LABS: Anion Gap 8 (5-15); BUN/Creatinine Ratio 62.7 (10.0-20.0); Bilirubin, Total 0.4 mg/dL (0.2-1.0); Magnesium 2.0 mg/dL (1.6-2.6); Potassium 3.8 mmol/L (3.5-5.1); Sodium 140 mmol/L (136-145)
[2025-05-03 04:39] LABS: Alanine Aminotransferase 57 U/L (7-40); Albumin 3.0 g/dL (3.2-4.8); Alkaline Phosphatase 117 U/L (46-116); Blood Urea Nitrogen 32 mg/dL (9-23); Calcium 8.1 mg/dL (8.7-10.4); Glucose 122 mg/dL (74-106); Total Protein 5.3 g/dL (5.7-8.2)
--- NOTE | 2025-05-03 05:44 | DVH ---
CHEST RADIOGRAPH Indication: left lung aspiration pna Technique: Single frontal view of the chest was obtained COMPARISON: XY CHEST PORTABLE on DOS: 05/02/25, XY CHEST PORTABLE on DOS: 05/02/25, XY CHEST PORTABLE on DOS: 05/02/25, XY CHEST PORTABLE on DOS: 05/02/25, XY CHEST XRAY 1 VIEW on DOS: 05/01/25 FINDINGS: Lines and Tubes: Interval advancement of endotracheal tube such that the tip now projects approximate ly 1.9 cm above the level of the choco. Remaining lines and tubes unchanged. Lungs: Stable appearing small left pleural effusion. No evidence of focal consolidation. No pneumothorax. Cardiomediastinal contours: Unremarkable Bones: Unremarkable IMPRESSION: 1. Interval advancement of endotracheal tube such that the tip now projects approximately 1.9 cm abov e the level of the choco. Remaining lines and tubes unchanged. 2. Stable small left pleural effusion.
--- NOTE | 2025-05-03 07:14 | RESUS ---
CODE ASSIST ASSESSSMENT Initial Information Code Assist Date: May 02, 2025 Code Assist Time: 19:30 Location of Arrest: [facility] Room [facility] 245B Provider Name DR CHARLES Time Notified: 19:30 Time PMD returned call: 19:31 Crash Cart Opened and Supplies: No Situation Staff concerned/worried, speci: Change LOC, SBP <90 or 10 from baseli Situation comment: pt found to be in respiratory distress, and lethargic, rapid Response called. Background Background: 89 y/o F, BIBA, with PMHx od dementia, anxiety, osteoporosis, and COPD presents to the ED for CC of abdominal pain. EMS reports, patient is coming from home where family called d/t patient experiencing diffuse abdominal pain x2days. Per EMS, family further relays, patient may have a UTI d/t increased confusion and change in baseline. Upon arrival to the ED, patient denies any pain however, her abdomen is noted to be moderately distended; EMS endorses reported LBM to have yesterday (04/14/25). pt admitted on 04/15/25. she was downgrated yesterday. Assessment Temperature (Fahrenheit): 98.1 Blood Pressure Systolic: 108 Blood Pressure Diastolic: 48 Respiratory Rate: 22 O2 Sat by Pulse Oximetry: 100 Recommendations/Interventions Procedures: ABG, CMP, CBC, EKG, Cardiac Monitoring Outcome Outcome: Transfer to ICU Team Members Team Members MED EGAN RN HS, OPHELIA RN, ANGELO RN, KYM RN, ERENDIRA RN, DIANE RT. MED MENDEZ May 03, 2025 07:14
[2025-05-03 07:31] LABS: Base Excess 1.1 mmol/L (-2.0-3.0)
[2025-05-03] MEDS: ENOXAPARIN SOD 30 MG/0.3 ML SYRINGE SC SCH (09:36)
--- NOTE | 2025-05-03 11:10 | DVH ---
EXAM DESCRIPTION: CT CT AB PEL WO CON-NO ORAL OR IV CLINICAL HISTORY: POSSIBLE OBSTRUCTION COMPARISON: XY KUB ABDOMEN SINGLE VIEW on DOS: 05/02/25, CT CHEST WITHOUT CONTRAST on DOS: 04/28/25, XY KUB ABDOMEN SINGLE VIEW on DOS: 04/27/25, XY KUB ABDOMEN SINGLE VIEW on DOS: 04/24/25, CT CT AB PE L WO CON-NO ORAL OR IV on DOS: 04/23/25 TECHNIQUE: CT abdomen and pelvis without IV contrast was performed. Coronal and sagittal MPR images were generat ed.CTDI/ DLP = 8.03 / 341.73 Dose reduction technique with one or more of the following methods was performed: Automated exposure control, adjustment of the mA and/or kV according to patient size, use of iterative reconstruction te chnique FINDINGS: Lower chest: Left lower lobe consolidation / atelectasis with small left pleural effusion. Subsegment al atelectasis in the lingula and right lower lobe. Liver: Homogenous in attenuation. . Biliary: Status post cholecystectomy. The common bowel duct is dilated measuring up to 15 mm and ther e is a 8 mm calcified lesion in the distal common bile duct, suspicious for choledocholithiasis. Intr a hepatic bile ducts are not well visualized but there is no severe intrapedicular ductal dilation Pancreas: No fat stranding or focal lesion. Spleen: Normal in size.. Adrenal glands: No nodularity. Kidneys: No nephrolithiasis. No hydroureteronephrosis. Water attenuation cyst.. Bladder: Obscured by streak artifact from the hip hardware. Reproductive organs: Obscured by streak artifact from the hip hardware Bowel: The proximal to mid small bowel is moderately dilated with air fluid levels and there is a pos sible transition point in the left lower quadrant at the region of a small bowel anastomotic suture. The small bowel distally is decompressed. The colon is also decompressed. Colonic diverticulosis with out evidence of diverticulitis. The enteric tube terminates in the distal esophagus near the gastroe sophageal junction. Small hiatal hernia with possible wall thickening. Rectal tube in place. Peritoneum: No free fluid. No free air. Vessels: Normal caliber abdominal aorta. Severe atherosclerotic calcifications.. Lymph nodes: No suspicious lymph nodes. Soft tissues: Unremarkable. . Osseous structures: Multiple thoracolumbar compression deformities, age indeterminant but likely beauty culturist bruna in nature. No suspicious osseous lesions. Degenerative changes of the visualized thoracolumbar s pine. Postoperative changes from bilateral hip arthroplasty. IMPRESSION: 1. Finding suspicious for high grade small bowel obstruction with possible transition point in the le ft lower quadrant at the region of a small bowel anastomosis. 2. The enteric tube terminates in the distal esophagus near the gastroesophageal junction , recommend advancement. 3. Moderately dilated common bile duct with 8 mm choledocholithiasis in the distal common bile duct. Recommend further evaluation with MRCP or ERCP 4. Small hiatal hernia with possible wall thickening. Underlying mass cannot be excluded. Recommend f ollow-up with endoscopy. 5. Left lower lobe consolidation / atelectasis with small left pleural effusion. Critical findings discussed with Ritesh CHANDRA) by Dr. Sylvester via phone on 05/03/2025 at 11 :06 AM.
--- NOTE | 2025-05-03 13:23 | DVHPN2 ---
Progress Note Date Seen: May 03, 2025 Resident Creating Document: HOLLY DEAN RESIDENT Medical Necessity Reason Pt with a Central, PICC or Fol: Yes Subjective Review of Systems Patient had respiratory distress yesterday evening and had to be intubated Currently sedated and on mechanical ventilation KUB yesterday showed small bowel dilation and CT abdomen done today showed possible small bowel obstruction Continues to be on TPN NG to LIS with a about 600 mL fluid suctioned overnight Objective vital signs Vital Sign Date Time Temp Pulse Resp B/P (MAP) Pulse Ox O2 Delivery O2 Flow Rate FiO2 05/03/25 11:39 92 22 134/35 (68) 10 05/03/25 08:00 98.5 98.5 05/03/25 08:00 Nasal Cannula* 2 Total Intake and Output 05/02/25 05/02/25 05/03/25 15:00 23:00 07:00 Intake Total 787.50 ml 410.184 ml 342.468 ml Output Total 0 ml 550 ml 1500 ml Balance 787.50 ml -139.816 ml -1157.532 ml medications Current Medications Medications Dose Ordered Sig/Gregory Route Start Time Stop Time Status Last Admin Dose Admin Pantoprazole Sodium 40 mg DAILY IV 04/16/25 10:00 05/03/25 09:36 40 MG Piperacillin Sod/ Tazobactam Sod 100 ml @ 25 mls/hr Q8HR IV 04/16/25 22:00 05/03/25 06:00 25 MLS/HR Amino Acids 0 ml @ 0 mls/hr PER PHARMACY IV 04/18/25 17:45 Sodium Chloride 10 ml QSHIFT@10,22 IV 04/21/25 22:00 05/03/25 09:37 10 ML Albuterol 2.5 mg Q3HPRN PRN NEB 04/24/25 16:15 05/01/25 19:21 2.5 MG Lorazepam 0.25 mg Q6HP PRN IV 04/24/25 18:30 05/02/25 00:33 0.25 MG Nicardipine/ Sodium Chloride 200 ml @ 50 mls/hr Q4H IV 04/25/25 09:45 Acetylcysteine 100 mg Q4HR NEB 04/25/25 14:00 05/03/25 10:04 100 MG Ipratropium [place] 0.5 mg Q4HR NEB 04/25/25 18:00 05/03/25 10:04 0.5 MG Levalbuterol HCl 0.625 mg Q4HR NEB 04/26/25 10:00 05/03/25 10:04 0.625 MG Micafungin Sodium 100 mg/Sodium Chloride 100 ml @ 100 mls/hr DAILY IV 04/29/25 10:00 05/03/25 09:37 100 MLS/HR Lactated Ringer's 1,000 ml @ 50 mls/hr Q20H IV 04/29/25 08:15 05/02/25 17:46 50 MLS/HR Diagnostic Test (Pha) 1 strip Q6HR 04/30/25 12:00 05/03/25 12:19 1 STRIP Insulin Human Regular FOLLOW SLIDING SCALE Q6HR SC 04/30/25 12:00 05/03/25 01:11 8 UNITS Dextrose 50 ml UD IV 04/30/25 09:00 Lidocaine 1 patch DAILY TOP 04/30/25 10:30 05/02/25 10:58 1 PATCH Morphine Sulfate 1 mg Q6HP PRN IV 04/30/25 10:30 05/02/25 17:58 1 MG Metoprolol Tartrate 2.5 mg Q4HR PRN IV 04/30/25 11:30 05/01/25 12:06 2.5 MG Metoprolol Tartrate 12.5 mg BID PO 05/02/25 10:00 05/02/25 11:23 12.5 MG Memantine 5 mg Q12HR PO 05/02/25 10:00 05/02/25 22:00 5 MG Oxycodone/ Acetaminophen 1 tab Q6HP PRN PO 05/02/25 10:00 Docusate Sodium 100 mg BID PO 05/02/25 10:00 05/02/25 22:00 100 MG Fat Emulsion Intravenous 100 ml/Sodium Phosphate 20 meq/ Potassium Chloride 10 meq/ Potassium Acetate 60 meq/Potassium Phosphate 22 meq/ Calcium Gluconate 9.3 meq/Magnesium Sulfate 14 meq/ Multivitamins 10 ml/Chromium/ Copper/Manganese/ Zinc 1 ml/Amino Acids/Dextrose/ Purified Water 1,379.5 ml @ 57 mls/hr [id number] IV 05/02/25 22:00 05/03/25 21:59 05/02/25 22:42 57 MLS/HR Enoxaparin Sodium 30 mg DAILY SC 05/03/25 10:00 05/03/25 09:36 30 MG Propofol 100 ml @ 1.296 mls/ hr Q24H IV 05/02/25 20:45 05/03/25 07:52 5.184 MLS/HR Midazolam HCl 100 ml @ 1 mls/hr Q24H IV 05/02/25 20:45 05/02/25 20:45 1 MLS/HR Fentanyl Citrate 250 ml @ 2.5 mls/hr Q24H IV 05/02/25 20:45 05/02/25 22:49 2.5 MLS/HR Sodium Phosphate 20 meq/Potassium Acetate 60 meq/ Potassium Phosphate 22 meq/ Calcium Gluconate 6.975 meq/ Magnesium Sulfate 14 meq/ Multivitamins 10 ml/Chromium/ Copper/Manganese/ Zinc 1 ml/Amino Acids/Dextrose/ Purified Water 1,269.5 ml @ 53 mls/hr [id number] IV 05/03/25 22:00 05/04/25 21:59 Examination Gen - no pallor, no scleral icterus Skin - Patients skin is warm and dry. HEENT - normocephalic, atraumatic, dry mucous membranes. Neck - supple, no lymphadenopathy Pulmonary - improved breath sounds in the left side, right side sounds without any crackles or wheezing cardiovascular - regular S1,S2 heard GI - soft abdomen status post exploratory laparotomy midline incision covered in a sterile dressing. Bowel sounds hypoactive Neurological - Patient is sedated and on mechanical ventilation laboratory and microbiology Laboratory Tests 05/03/25 03:25 Test 05/03/25 03:25 Range/Units Serum Glucose 122 H 74-106 mg/dL Microbiology Date/Time Source Procedure Growth Status 05/02/25 20:30 Sputum Gram Stain Pending Resulted 05/02/25 20:30 Sputum Respiratory Culture - Preliminary Resulted 04/30/25 14:30 Pleural Fluid Gram Stain - Final Resulted 04/30/25 14:30 Pleural Fluid Body Fluid Culture - Preliminary Resulted 04/22/25 15:28 Nose MRSA Screen - Final Complete Problem List/Assessment/Plan Problem List/Assessment/Plan Assessment Small-bowel obstruction s/p exploratory laparotomy with a possible transition point Choledocholithiasis Left lung atelectasis likely due to aspiration Status post bronchoscopy Plan - intubated and on mechanical ventilation - NG to LIS - continue on TPN - repeat CT abdomen pelvis done today on 05/03 showed findings suspicious for high-grade SBO with possible transition point in the LLQ at the region of small bowel anastomosis - management as per primary surgeon PUD prophylaxis with Protonix Plan discussed with Dr. Cui Plan discussed with: Other (KIA Awad) My Orders My Orders Orders - HOLLY DEAN RESIDENT Procedure Category Date Status Time Abg W/ Co-Ox RT 05/02/25 Logged 19:33 Nasal Tracheal Suction RT 05/02/25 Logged 19:33 Dietary Evaluation Review Recommendations by RD: PPN/TPN Comments: 1) Increase TPN to meet at least 75% estimated daily needs 2) Advance to cardiac diet when medically feasible 3) Follow-up with gastroenterology and neurology 4) Continue to monitor I&O, labs, and skin integrity Expected Outcomes/Goals: 1) nutrition support to meet at least 75% estimated daily needs 2) labs to improve 3) diet to advance 4) gradual wt gain 5) f/u in 2-3 days HOLLY DEAN RESIDENT May 03, 2025 13:23
[2025-05-03] MEDS: SODIUM CHLORIDE 0.9% 500 ML IV ONE (13:30)
--- NOTE | 2025-05-03 13:39 | DVHPN2 ---
Progress Note Date Seen: May 03, 2025 Medical Necessity Reason Pt with a Central, PICC or Fol: Yes Objective vital signs Vital Sign Date Time Temp Pulse Resp B/P (MAP) Pulse Ox O2 Delivery O2 Flow Rate FiO2 05/03/25 11:39 92 22 134/35 (68) 05 0105/03/25 08:00 98.5 98.5 05/03/25 08:00 Nasal Cannula* 2 Total Intake and Output 05/02/25 05/02/25 05/03/25 15:00 23:00 07:00 Intake Total 787.50 ml 410.184 ml 342.468 ml Output Total 0 ml 550 ml 1500 ml Balance 787.50 ml -139.816 ml -1157.532 ml medications Current Medications Medications Dose Ordered Sig/Gregory Route Start Time Stop Time Status Last Admin Dose Admin Pantoprazole Sodium 40 mg DAILY IV 04/16/25 10:00 05/03/25 09:36 40 MG Piperacillin Sod/ Tazobactam Sod 100 ml @ 25 mls/hr Q8HR IV 04/16/25 22:00 05/03/25 06:00 25 MLS/HR Amino Acids 0 ml @ 0 mls/hr PER PHARMACY IV 04/18/25 17:45 Sodium Chloride 10 ml QSHIFT@10,22 IV 04/21/25 22:00 05/03/25 09:37 10 ML Albuterol 2.5 mg Q3HPRN PRN NEB 04/24/25 16:15 05/01/25 19:21 2.5 MG Lorazepam 0.25 mg Q6HP PRN IV 04/24/25 18:30 05/02/25 00:33 0.25 MG Nicardipine/ Sodium Chloride 200 ml @ 50 mls/hr Q4H IV 04/25/25 09:45 Acetylcysteine 100 mg Q4HR NEB 04/25/25 14:00 05/03/25 10:04 100 MG Ipratropium [place] 0.5 mg Q4HR NEB 04/25/25 18:00 05/03/25 10:04 0.5 MG Levalbuterol HCl 0.625 mg Q4HR NEB 04/26/25 10:00 05/03/25 10:04 0.625 MG Micafungin Sodium 100 mg/Sodium Chloride 100 ml @ 100 mls/hr DAILY IV 04/29/25 10:00 05/03/25 09:37 100 MLS/HR Lactated Ringer's 1,000 ml @ 50 mls/hr Q20H IV 04/29/25 08:15 05/02/25 17:46 50 MLS/HR Diagnostic Test (Pha) 1 strip Q6HR 04/30/25 12:00 05/03/25 12:19 1 STRIP Insulin Human Regular FOLLOW SLIDING SCALE Q6HR SC 04/30/25 12:00 05/03/25 01:11 8 UNITS Dextrose 50 ml UD IV 04/30/25 09:00 Lidocaine 1 patch DAILY TOP 04/30/25 10:30 05/02/25 10:58 1 PATCH Morphine Sulfate 1 mg Q6HP PRN IV 04/30/25 10:30 05/02/25 17:58 1 MG Metoprolol Tartrate 2.5 mg Q4HR PRN IV 04/30/25 11:30 05/01/25 12:06 2.5 MG Metoprolol Tartrate 12.5 mg BID PO 05/02/25 10:00 05/02/25 11:23 12.5 MG Memantine 5 mg Q12HR PO 05/02/25 10:00 05/02/25 22:00 5 MG Oxycodone/ Acetaminophen 1 tab Q6HP PRN PO 05/02/25 10:00 Docusate Sodium 100 mg BID PO 05/02/25 10:00 05/02/25 22:00 100 MG Fat Emulsion Intravenous 100 ml/Sodium Phosphate 20 meq/ Potassium Chloride 10 meq/ Potassium Acetate 60 meq/Potassium Phosphate 22 meq/ Calcium Gluconate 9.3 meq/Magnesium Sulfate 14 meq/ Multivitamins 10 ml/Chromium/ Copper/Manganese/ Zinc 1 ml/Amino Acids/Dextrose/ Purified Water 1,379.5 ml @ 57 mls/hr [id number] IV 05/02/25 22:00 05/03/25 21:59 05/02/25 22:42 57 MLS/HR Enoxaparin Sodium 30 mg DAILY SC 05/03/25 10:00 05/03/25 09:36 30 MG Propofol 100 ml @ 1.296 mls/ hr Q24H IV 05/02/25 20:45 05/03/25 07:52 5.184 MLS/HR Midazolam HCl 100 ml @ 1 mls/hr Q24H IV 05/02/25 20:45 05/02/25 20:45 1 MLS/HR Fentanyl Citrate 250 ml @ 2.5 mls/hr Q24H IV 05/02/25 20:45 05/02/25 22:49 2.5 MLS/HR Sodium Phosphate 20 meq/Potassium Acetate 60 meq/ Potassium Phosphate 22 meq/ Calcium Gluconate 6.975 meq/ Magnesium Sulfate 14 meq/ Multivitamins 10 ml/Chromium/ Copper/Manganese/ Zinc 1 ml/Amino Acids/Dextrose/ Purified Water 1,269.5 ml @ 53 mls/hr [id number] IV 05/03/25 22:00 05/04/25 21:59 laboratory and microbiology Laboratory Tests 05/03/25 03:25 Test 05/03/25 03:25 Range/Units Serum Glucose 122 H 74-106 mg/dL Microbiology Date/Time Source Procedure Growth Status 05/02/25 20:30 Sputum Gram Stain Pending Resulted 05/02/25 20:30 Sputum Respiratory Culture - Preliminary Resulted 04/30/25 14:30 Pleural Fluid Gram Stain - Final Resulted 04/30/25 14:30 Pleural Fluid Body Fluid Culture - Preliminary Resulted 04/22/25 15:28 Nose MRSA Screen - Final Complete Problem List/Assessment/Plan Problem List/Assessment/Plan AFEBRILE VSS TRANSFERRED TO ICU LAST NIGHT DUE TO RESP DISTRESS THEN INTUBATED R/O ASPIRATION OG IN PLACE ABD SOFT NON TENDER CT SCAN ABD PELVIS R/O RECURRENT PARTIAL SBO OR ILEUS WOUND DRESSING DRY KEEP NPO CONTINUE SUPPORTIVE CARE FAMILY AWARE OF PT CONDITION NURSE AT BEDSIDE ONGOING PULM EVAL Plan discussed with: Other My Orders My Orders Orders - GLORIA MCNEAL MD Procedure Category Date Status Time Npo (Nothing By DIET 05/03/25 Transmitted Mouth) Diet Breakfast Dietary Evaluation Review Recommendations by RD: PPN/TPN Comments: 1) Increase TPN to meet at least 75% estimated daily needs 2) Advance to cardiac diet when medically feasible 3) Follow-up with gastroenterology and neurology 4) Continue to monitor I&O, labs, and skin integrity Expected Outcomes/Goals: 1) nutrition support to meet at least 75% estimated daily needs 2) labs to improve 3) diet to advance 4) gradual wt gain 5) f/u in 2-3 days GLORIA MCNEAL MD May 03, 2025 13:39
[2025-05-03 14:40] LABS: Triglycerides 226 mg/dL (< 150)
--- NOTE | 2025-05-03 14:59 | DVH ---
Exam: XY KUB ABDOMEN SINGLE VIEW Indication: OG tube advanced per Rad recomm post CT ABD Comparison: XY KUB ABDOMEN SINGLE VIEW on DOS: 05/02/25, XY KUB ABDOMEN SINGLE VIEW on DOS: 04/27/25, XY KUB ABDOMEN SINGLE VIEW on DOS: 04/24/25, XY KUB ABDOMEN SINGLE VIEW on DOS: 04/20/25, XY KUB ABD OMEN SINGLE VIEW on DOS: 04/18/25 Technique: 1 radiographic views of the abdomen. Findings: Enteric catheter at the distal esophagus. Nonspecific bowel-gas pattern. There is no definite evidence for pneumoperitoneum. No abnormal calcifications noted. Impression: Enteric catheter in the distal esophagus. Repositioning required.
--- NOTE | 2025-05-03 20:31 | DVHPN2 ---
Subjective DOS: 05/03/2025 Patient seen and examined at bedside. Sedated, intubated on mechanical ventilator. Overnight events reviewed. Reviewed: Care Plan, H&P, Labs, Medications Changes from previous H/P or p: Changes General: Per HPI Objective Vitals Vital Signs Date Time Temp Pulse Resp B/P (MAP) Pulse Ox O2 Delivery O2 Flow Rate FiO2 05/03/25 19:12 90 23 125/38 (67) 99 30 05/03/25 18:15 97.3 207.1 05/03/25 08:00 Nasal Cannula* 2 Intake/Output Intake and Output 05/03/25 07:00 Intake Total 1540.152 ml Output Total 2050 ml Balance -509.848 ml Intake Oral 325 ml IV Total 1215.152 ml Output Urine Total 900 ml Stool Total 0 ml Gastric Drainage Total 1150 ml # Bowel Movements 1 General Appearance: Alert, Cooperative, mild distress, Other (Underlying dementia. Currently on vent) HEENT: PERRLA, Other Lungs: Other (On vent. Transmitted breath sounds bilaterally. Decreased air entry bilaterally. No wheezing. Bibasilar crackles.) Cardiovascular: Normal S1, Normal S2 Abdomen: No tenderness, No hepatospenomegaly, Other (Reported BM yesterday evening. Hypoactive bowel sounds) Genitourinary: No Apparent Abnormalities (Grewal catheter) Musculoskeletal: Normal sensory function, Normal motor function Extremities: No edema, Normal pulses, No tenderness/swelling Neuro: Cranial nerves 3-12 NL, Other Skin: Dry, Intact, Wounds, Other (Surgical wound D&I) Psych/Mental Status: Mood NL Medications Current Medications Medications Dose Ordered Sig/Gregory Route Start Time Stop Time Status Last Admin Dose Admin Pantoprazole Sodium 40 mg DAILY IV 04/16/25 10:00 05/03/25 09:36 40 MG Piperacillin Sod/ Tazobactam Sod 100 ml @ 25 mls/hr Q8HR IV 04/16/25 22:00 05/03/25 14:40 25 MLS/HR Amino Acids 0 ml @ 0 mls/hr PER PHARMACY IV 04/18/25 17:45 Sodium Chloride 10 ml QSHIFT@10,22 IV 04/21/25 22:00 05/03/25 09:37 10 ML Albuterol 2.5 mg Q3HPRN PRN NEB 04/24/25 16:15 05/01/25 19:21 2.5 MG Lorazepam 0.25 mg Q6HP PRN IV 04/24/25 18:30 05/02/25 00:33 0.25 MG Nicardipine/ Sodium Chloride 200 ml @ 50 mls/hr Q4H IV 04/25/25 09:45 Acetylcysteine 100 mg Q4HR NEB 04/25/25 14:00 05/03/25 19:12 100 MG Ipratropium [place] 0.5 mg Q4HR NEB 04/25/25 18:00 05/03/25 19:11 0.5 MG Levalbuterol HCl 0.625 mg Q4HR NEB 04/26/25 10:00 05/03/25 19:12 0.625 MG Micafungin Sodium 100 mg/Sodium Chloride 100 ml @ 100 mls/hr DAILY IV 04/29/25 10:00 05/03/25 09:37 100 MLS/HR Lactated Ringer's 1,000 ml @ 50 mls/hr Q20H IV 04/29/25 08:15 05/02/25 17:46 50 MLS/HR Diagnostic Test (Pha) 1 strip Q6HR 04/30/25 12:00 05/03/25 17:55 1 STRIP Insulin Human Regular FOLLOW SLIDING SCALE Q6HR SC 04/30/25 12:00 05/03/25 01:11 8 UNITS Dextrose 50 ml UD IV 04/30/25 09:00 Lidocaine 1 patch DAILY TOP 04/30/25 10:30 05/02/25 10:58 1 PATCH Morphine Sulfate 1 mg Q6HP PRN IV 04/30/25 10:30 05/02/25 17:58 1 MG Metoprolol Tartrate 2.5 mg Q4HR PRN IV 04/30/25 11:30 05/01/25 12:06 2.5 MG Metoprolol Tartrate 12.5 mg BID PO 05/02/25 10:00 05/02/25 11:23 12.5 MG Memantine 5 mg Q12HR PO 05/02/25 10:00 05/02/25 22:00 5 MG Oxycodone/ Acetaminophen 1 tab Q6HP PRN PO 05/02/25 10:00 Docusate Sodium 100 mg BID PO 05/02/25 10:00 05/02/25 22:00 100 MG Fat Emulsion Intravenous 100 ml/Sodium Phosphate 20 meq/ Potassium Chloride 10 meq/ Potassium Acetate 60 meq/Potassium Phosphate 22 meq/ Calcium Gluconate 9.3 meq/Magnesium Sulfate 14 meq/ Multivitamins 10 ml/Chromium/ Copper/Manganese/ Zinc 1 ml/Amino Acids/Dextrose/ Purified Water 1,379.5 ml @ 57 mls/hr [id number] IV 05/02/25 22:00 05/03/25 21:59 05/02/25 22:42 57 MLS/HR Enoxaparin Sodium 30 mg DAILY SC 05/03/25 10:00 05/03/25 09:36 30 MG Propofol 100 ml @ 1.296 mls/ hr Q24H IV 05/02/25 20:45 05/03/25 15:18 2.592 MLS/HR Midazolam HCl 100 ml @ 1 mls/hr Q24H IV 05/02/25 20:45 05/03/25 15:18 3 MLS/HR Fentanyl Citrate 250 ml @ 2.5 mls/hr Q24H IV 05/02/25 20:45 05/02/25 22:49 2.5 MLS/HR Sodium Phosphate 20 meq/Potassium Acetate 60 meq/ Potassium Phosphate 22 meq/ Calcium Gluconate 6.975 meq/ Magnesium Sulfate 14 meq/ Multivitamins 10 ml/Chromium/ Copper/Manganese/ Zinc 1 ml/Amino Acids/Dextrose/ Purified Water 1,269.5 ml @ 53 mls/hr [id number] IV 05/03/25 22:00 05/04/25 21:59 Laboratory Results Laboratory Tests 05/03/25 03:25 Chemistry Test 05/03/25 03:25 Albumin 3.0 g/dL (3.2-4.8) L Calcium Level 8.1 mg/dL (8.7-10.4) L Magnesium Level 2.0 mg/dL (1.6-2.6) Phosphorus Level 3.5 mg/dL (2.4-5.1) Total Protein 5.3 g/dL (5.7-8.2) L Lipid panel Test 05/03/25 03:25 Triglycerides Level 226 mg/dL (< 150) H LFT Test 05/03/25 03:25 Alanine Aminotransferase (ALT) 57 U/L (7-40) H Alkaline Phosphatase 117 U/L (46-116) H Aspartate Amino Transferase (AST) 31 U/L (13-40) Total Bilirubin 0.4 mg/dL (0.2-1.0) Urinalysis Test 04/15/25 15:45 Urine Color Light-orange (Yellow) Urine Clarity Ex.turbid (Clear) Urine pH 5.5 (5.0-9.0) Urine Specific [place] 1.028 (1.001-1.035) Urine Protein 1+ (Negative) H Urine Ketones Negative (Negative) Urine Blood 1+ /uL (Negative) H Urine Nitrite Negative (Negative) Urine Bilirubin Negative (Negative) Urine Urobilinogen 3 mg/dL (Negative) H Urine Leukocyte Esterase Negative /uL (Negative) Urine RBC 16 /hpf (0 - 4) Urine Microscopic WBC 1 /HPF (0-5) Urine Squamous Epithelial Cells Mod /hpf (<5) Urine Amorphous Crystals Few /hpf (None Seen) Urine Bacteria Few /hpf (None Seen) H Urine Hyaline Casts Few /lpf (0 - 2) Urine Mucus Few (None Seen) Urine Glucose Normal mg/dL (Normal) Blood Gas Results Test 05/02/25 21:58 05/03/25 07:08 Arterial Blood pH 7.374 (7.350-7.450) 7.479 (7.350-7.450) FiO2 % 100.0 30.0 Microbiology Microbiology Date/Time Source Procedure Growth Status 05/02/25 20:30 Sputum Gram Stain Pending Resulted 05/02/25 20:30 Sputum Respiratory Culture - Preliminary Resulted 05/02/25 00:00 Nose MRSA Screen - Final Complete 04/30/25 14:30 Pleural Fluid Gram Stain - Final Resulted 04/30/25 14:30 Pleural Fluid Body Fluid Culture - Preliminary Resulted Assessment/Plan Assessment/Plan Impression: Acute hypoxic respiratory failure On mechanical ventilator Atelectasis Lung collapse Pneumonia Hx of nicotine dependence Cachexia, BMI 17.4 Events: Patient required intubation overnight due to respiratory distress. Currently on mechanical ventilator On AC mode; RR 22, VT 450, PEEP 5, FiO2 30% Sedated on Versed, Propofol On Fentanyl drip ABG shows alkalemia CXR today reveals stable small left pleural effusion. KUB yesterday showed small bowel dilation and CT abdomen done today showed possible small bowel obstruction Continue TPN for nutritional support NG to LIS with a about 600 mL fluid suctioned overnight GI recs appreciated Metoprolol for tachycardia. Follow up Cardiology recs Continue bronchodilators Mucolytics with Mucomyst Chest percussive therapy Continue antibiotics Continue antifungals Incentive spirometry IV fluids HOB elevation Aspiration precautions CT chest demonstrated improved aeration of left upper lobe Repeat bronchoscopy was performed on 04/30/25 with removal of mucous plugs in left lower lobe bronchus. Left thoracentesis was performed on 04/30/25 with removal of 250 mL serosanguineous fluid. See separate procedure notes for details of both procedures. Pleural fluid cultures showed no growth S/p bronchoscopy on 04/26/25 with clearance of copious secretions in L1-L10. Endobronchial lesion in left mainstem bronchus, biopsied. Follow up biopsy results. Labs and imaging reviewed. Rest of plan as noted below. Plan: s/p intubation on mechanical ventilator. On AC mode; RR 22, VT 450, PEEP 5, FiO2 30% Titrate FIO2 to keep O2 saturation above 90%. VAP bundle. Daily ABG and CXR while intubated Sedate for ventilator synchrony Pressors for hemodynamic support Titrate to keep mean arterial pressure greater than 65 mmHg Continue bronchodilators. Continue antibiotics Incentive spirometry Head of bed elevation Aspiration precautions NGT in place Monitor renal function. Monitor electrolytes. Supplement as necessary. Monitor ins and outs. DVT prophylaxis. Prognosis: Poor given patient's multiple co-morbidities. Condition: Critical Rest of plan per hospitalist and other consultants. A total of 35 minutes of critical care time was spent reviewing the patient record, examining the patient, making a diagnostic and therapeutic plan, discussing this plan with the medical personnel, following up on diagnostic studies and following the patient for clinical stability excluding any and all procedures. At least 50% of this time was spent in direct, [id number] contact. Thank you, JESÚS oFrd, for allowing me to participate in this patient's care. Further recommendations will depend on the patient's clinical course. Please do not hesitate to contact me if you have any questions or concerns. This medical document was created using an electronic medical record system with [email or web address] system. Although these documentations are being carefully reviewed, there may still be some phonetic and typographical changes. The errors are purely typographical, due to imperfection on the software program, and do not reflect any compromise in the patient's medical care. Plan discussed with: Other (KIA Awad) Visit Coding Pulmonary Billing Provider: KARENA WESTFALL MD Date of Service if different f: May 03, 2025 Common Visit Codes: [id number] INP/OBS CARE(HIGH), [id number] CARE 30-74 MIN KARENA WESTFALL MD May 03, 2025 20:31
[2025-05-04] VITALS (100 sets, daily range): BP systolic 104–146; BP diastolic 25–57; PULSE 85–133; RESP 12–33; TEMP 97.5–99; O2SAT 93–100
--- NOTE | 2025-05-04 01:01 | DVH ---
Date: 05/03/2025 11:50 PM Examination: XY KUB ABDOMEN SINGLE VIEW History: CONFIRM OG TUBE PLACEMENT TECHNIQUE: Frontal views of the abdomen was obtained. 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 Bowel gas pattern is unremarkable.
[2025-05-04 05:03] LABS: Alkaline Phosphatase 98 U/L (46-116); Anion Gap 9 (5-15); BUN/Creatinine Ratio 72.2 (10.0-20.0); Carbon Dioxide 26 mmol/L (20-31); Chloride 104 mmol/L (98-107); Magnesium 1.9 mg/dL (1.6-2.6); Potassium 4.8 mmol/L (3.5-5.1); Sodium 139 mmol/L (136-145)
[2025-05-04 05:20] LABS: Alanine Aminotransferase 43 U/L (7-40); Albumin 2.8 g/dL (3.2-4.8); Bilirubin, Total 0.3 mg/dL (0.2-1.0); Blood Urea Nitrogen 39 mg/dL (9-23); Calcium 7.6 mg/dL (8.7-10.4); Glucose 111 mg/dL (74-106); Total Protein 5.0 g/dL (5.7-8.2)
--- NOTE | 2025-05-04 05:27 | DVH ---
CHEST RADIOGRAPH Indication: MECHANICAL VENTILATION Technique: Single frontal view of the chest was obtained Comparison: XY CHEST PORTABLE on DOS: 05/03/25, XY CHEST PORTABLE on DOS: 05/02/25, XY CHEST PORTABLE on DOS: 05/02/25 IMPRESSION: There are low lung volumes. Support lines and tubes appear unchanged in satisfactory position. Airsp manju opacity left lung base may relate to atelectasis or consolidation. No sizable effusion or pneumot horax. No significant interval change.
[2025-05-04 09:18] LABS: Base Excess -0.3 mmol/L (-2.0-3.0)
[2025-05-04] MEDS: DEXTROSE (50%) 50ML SYRG IV SCH (17:32)
--- NOTE | 2025-05-04 20:12 | DVHPN2 ---
Reviewed: Care Plan, H&P, Labs, Medications Changes from previous H/P or p: No Changes General: Per HPI Objective Vitals Vital Signs Date Time Temp Pulse Resp B/P (MAP) Pulse Ox O2 Delivery O2 Flow Rate FiO2 05/04/25 20:06 94 22 106/41 (62) 96 30 05/04/25 18:15 97.9 208.2 05/04/25 08:00 Mechanical Ventilator+ 05/02/25 19:46 10 Intake/Output Intake and Output 05/04/25 07:00 Intake Total 1362.9 ml Output Total 925 ml Balance 437.9 ml Intake Oral 0 ml IV Total 1362.9 ml Output Urine Total 925 ml Stool Total 0 ml Gastric Drainage Total 0 ml General Appearance: Alert, Cooperative, mild distress, Other (Underlying dementia. Currently on vent) HEENT: PERRLA, Other Lungs: Other (On vent. Transmitted breath sounds bilaterally. Decreased air entry bilaterally. No wheezing. Bibasilar crackles.) Cardiovascular: Normal S1, Normal S2 Abdomen: No tenderness, No hepatospenomegaly, Other (Reported BM yesterday evening. Hypoactive bowel sounds) Genitourinary: No Apparent Abnormalities (Grewal catheter) Musculoskeletal: Normal sensory function, Normal motor function Extremities: No edema, Normal pulses, No tenderness/swelling Neuro: Cranial nerves 3-12 NL, Other Skin: Dry, Intact, Wounds, Other (Surgical wound D&I) Psych/Mental Status: Mood NL Medications Current Medications Medications Dose Ordered Sig/Gregory Route Start Time Stop Time Status Last Admin Dose Admin Pantoprazole Sodium 40 mg DAILY IV 04/16/25 10:00 05/04/25 09:38 40 MG Piperacillin Sod/ Tazobactam Sod 100 ml @ 25 mls/hr Q8HR IV 04/16/25 22:00 05/04/25 13:43 25 MLS/HR Amino Acids 0 ml @ 0 mls/hr PER PHARMACY IV 04/18/25 17:45 Sodium Chloride 10 ml QSHIFT@10,22 IV 04/21/25 22:00 05/04/25 09:38 10 ML Albuterol 2.5 mg Q3HPRN PRN NEB 04/24/25 16:15 05/01/25 19:21 2.5 MG Lorazepam 0.25 mg Q6HP PRN IV 04/24/25 18:30 05/02/25 00:33 0.25 MG Nicardipine/ Sodium Chloride 200 ml @ 50 mls/hr Q4H IV 04/25/25 09:45 Acetylcysteine 100 mg Q4HR NEB 04/25/25 14:00 05/04/25 18:03 100 MG Ipratropium [place] 0.5 mg Q4HR NEB 04/25/25 18:00 05/04/25 18:03 0.5 MG Levalbuterol HCl 0.625 mg Q4HR NEB 04/26/25 10:00 05/04/25 18:03 0.625 MG Micafungin Sodium 100 mg/Sodium Chloride 100 ml @ 100 mls/hr DAILY IV 04/29/25 10:00 05/04/25 09:37 100 MLS/HR Lactated Ringer's 1,000 ml @ 50 mls/hr Q20H IV 04/29/25 08:15 05/04/25 09:37 50 MLS/HR Diagnostic Test (Pha) 1 strip Q6HR 04/30/25 12:00 05/04/25 17:32 1 STRIP Insulin Human Regular FOLLOW SLIDING SCALE Q6HR SC 04/30/25 12:00 05/03/25 01:11 8 UNITS Dextrose 50 ml UD IV 04/30/25 09:00 05/04/25 17:32 50 ML Lidocaine 1 patch DAILY TOP 04/30/25 10:30 05/02/25 10:58 1 PATCH Morphine Sulfate 1 mg Q6HP PRN IV 04/30/25 10:30 05/02/25 17:58 1 MG Metoprolol Tartrate 2.5 mg Q4HR PRN IV 04/30/25 11:30 05/01/25 12:06 2.5 MG Metoprolol Tartrate 12.5 mg BID PO 05/02/25 10:00 05/02/25 11:23 12.5 MG Memantine 5 mg Q12HR PO 05/02/25 10:00 05/02/25 22:00 5 MG Oxycodone/ Acetaminophen 1 tab Q6HP PRN PO 05/02/25 10:00 Docusate Sodium 100 mg BID PO 05/02/25 10:00 05/02/25 22:00 100 MG Enoxaparin Sodium 30 mg DAILY SC 05/03/25 10:00 05/04/25 09:38 30 MG Propofol 100 ml @ 1.296 mls/ hr Q24H IV 05/02/25 20:45 05/04/25 03:33 3.888 MLS/HR Midazolam HCl 100 ml @ 1 mls/hr Q24H IV 05/02/25 20:45 05/03/25 15:18 3 MLS/HR Fentanyl Citrate 250 ml @ 2.5 mls/hr Q24H IV 05/02/25 20:45 05/04/25 13:39 10 MLS/HR Sodium Phosphate 20 meq/Potassium Acetate 60 meq/ Potassium Phosphate 22 meq/ Calcium Gluconate 6.975 meq/ Magnesium Sulfate 14 meq/ Multivitamins 10 ml/Chromium/ Copper/Manganese/ Zinc 1 ml/Amino Acids/Dextrose/ Purified Water 1,269.5 ml @ 53 mls/hr [id number] IV 05/03/25 22:00 05/04/25 21:59 05/03/25 21:02 53 MLS/HR Sodium Acetate 40 meq/Potassium Acetate 10 meq/ Calcium Gluconate 9.3 meq/Magnesium Sulfate 16 meq/ Multivitamins 10 ml/Chromium/ Copper/Manganese/ Zinc 1 ml/Amino Acids/Dextrose/ Purified Water 1,260 ml @ 52 mls/hr [id number] IV 05/04/25 22:00 05/05/25 21:59 Laboratory Results Laboratory Tests 05/03/25 03:25 05/04/25 03:30 Chemistry Test 05/04/25 03:30 Albumin 2.8 g/dL (3.2-4.8) L Calcium Level 7.6 mg/dL (8.7-10.4) L Magnesium Level 1.9 mg/dL (1.6-2.6) Phosphorus Level 4.3 mg/dL (2.4-5.1) Total Protein 5.0 g/dL (5.7-8.2) L LFT Test 05/04/25 03:30 Alanine Aminotransferase (ALT) 43 U/L (7-40) H Alkaline Phosphatase 98 U/L (46-116) Aspartate Amino Transferase (AST) 25 U/L (13-40) Total Bilirubin 0.3 mg/dL (0.2-1.0) Urinalysis Test 04/15/25 15:45 Urine Color Light-orange (Yellow) Urine Clarity Ex.turbid (Clear) Urine pH 5.5 (5.0-9.0) Urine Specific [place] 1.028 (1.001-1.035) Urine Protein 1+ (Negative) H Urine Ketones Negative (Negative) Urine Blood 1+ /uL (Negative) H Urine Nitrite Negative (Negative) Urine Bilirubin Negative (Negative) Urine Urobilinogen 3 mg/dL (Negative) H Urine Leukocyte Esterase Negative /uL (Negative) Urine RBC 16 /hpf (0 - 4) Urine Microscopic WBC 1 /HPF (0-5) Urine Squamous Epithelial Cells Mod /hpf (<5) Urine Amorphous Crystals Few /hpf (None Seen) Urine Bacteria Few /hpf (None Seen) H Urine Hyaline Casts Few /lpf (0 - 2) Urine Mucus Few (None Seen) Urine Glucose Normal mg/dL (Normal) Blood Gas Results Test 05/04/25 09:08 Arterial Blood pH 7.431 (7.350-7.450) FiO2 % 30.0 Microbiology Microbiology Date/Time Source Procedure Growth Status 05/02/25 20:30 Sputum Gram Stain Pending Resulted 05/02/25 20:30 Sputum Respiratory Culture - Preliminary Resulted 05/02/25 00:00 Nose MRSA Screen - Final Complete 04/30/25 14:30 Pleural Fluid Gram Stain - Final Resulted 04/30/25 14:30 Pleural Fluid Body Fluid Culture - Preliminary Resulted Labs and/or images reviewed: Labs reviewed by me, Image(s) reviewed by me Assessment/Plan Assessment/Plan Impression: -choledocholithiasis -acute pancreatitis -small-bowel obstruction, recurrent -dementia -cachexia -sepsis -COPD -GERD -Post op delirium -Accelerated HTN -A. fib Plan: Events: current intubated Chest x-ray reveals at left lung made open. -continue IV Reglan, start colace -out of bed to chair with physical therapy -Continue TPN -Pulmonology consult- case discussed -Continue Zosyn, micafungin -PPI -Antihypertensives -pain management: start percocet -continue bronchodilators, Mucomyst -repeat labs and chest x-ray in a.m. Total time spent with patient discussing and formulating plan of care: 35 minutes. Plan discussed with: Other Date of Service: May 03, 2025 Billing Provider: REESE SORTO DO Common Visit Codes: [id number] CARE 30-74 MIN REESE SORTO DO May 04, 2025 20:12
--- NOTE | 2025-05-04 20:17 | DVHPN2 ---
Reviewed: Care Plan, H&P, Labs, Medications Changes from previous H/P or p: No Changes General: Per HPI Objective Vitals Vital Signs Date Time Temp Pulse Resp B/P (MAP) Pulse Ox O2 Delivery O2 Flow Rate FiO2 05/04/25 20:06 94 22 106/41 (62) 96 30 05/04/25 18:15 97.9 208.2 05/04/25 08:00 Mechanical Ventilator+ 05/02/25 19:46 10 Intake/Output Intake and Output 05/04/25 07:00 Intake Total 1362.9 ml Output Total 925 ml Balance 437.9 ml Intake Oral 0 ml IV Total 1362.9 ml Output Urine Total 925 ml Stool Total 0 ml Gastric Drainage Total 0 ml General Appearance: Alert, Cooperative, mild distress, Other (Underlying dementia. Currently on vent) HEENT: PERRLA, Other Lungs: Other (On vent. Transmitted breath sounds bilaterally. Decreased air entry bilaterally. No wheezing. Bibasilar crackles.) Cardiovascular: Normal S1, Normal S2 Abdomen: No tenderness, No hepatospenomegaly, Other (Reported BM yesterday evening. Hypoactive bowel sounds) Genitourinary: No Apparent Abnormalities (Grewal catheter) Musculoskeletal: Normal sensory function, Normal motor function Extremities: No edema, Normal pulses, No tenderness/swelling Neuro: Cranial nerves 3-12 NL, Other Skin: Dry, Intact, Wounds, Other (Surgical wound D&I) Psych/Mental Status: Mood NL Medications Current Medications Medications Dose Ordered Sig/Gregory Route Start Time Stop Time Status Last Admin Dose Admin Pantoprazole Sodium 40 mg DAILY IV 04/16/25 10:00 05/04/25 09:38 40 MG Piperacillin Sod/ Tazobactam Sod 100 ml @ 25 mls/hr Q8HR IV 04/16/25 22:00 05/04/25 13:43 25 MLS/HR Amino Acids 0 ml @ 0 mls/hr PER PHARMACY IV 04/18/25 17:45 Sodium Chloride 10 ml QSHIFT@10,22 IV 04/21/25 22:00 05/04/25 09:38 10 ML Albuterol 2.5 mg Q3HPRN PRN NEB 04/24/25 16:15 05/01/25 19:21 2.5 MG Lorazepam 0.25 mg Q6HP PRN IV 04/24/25 18:30 05/02/25 00:33 0.25 MG Nicardipine/ Sodium Chloride 200 ml @ 50 mls/hr Q4H IV 04/25/25 09:45 Acetylcysteine 100 mg Q4HR NEB 04/25/25 14:00 05/04/25 18:03 100 MG Ipratropium [place] 0.5 mg Q4HR NEB 04/25/25 18:00 05/04/25 18:03 0.5 MG Levalbuterol HCl 0.625 mg Q4HR NEB 04/26/25 10:00 05/04/25 18:03 0.625 MG Micafungin Sodium 100 mg/Sodium Chloride 100 ml @ 100 mls/hr DAILY IV 04/29/25 10:00 05/04/25 09:37 100 MLS/HR Lactated Ringer's 1,000 ml @ 50 mls/hr Q20H IV 04/29/25 08:15 05/04/25 09:37 50 MLS/HR Diagnostic Test (Pha) 1 strip Q6HR 04/30/25 12:00 05/04/25 17:32 1 STRIP Insulin Human Regular FOLLOW SLIDING SCALE Q6HR SC 04/30/25 12:00 05/03/25 01:11 8 UNITS Dextrose 50 ml UD IV 04/30/25 09:00 05/04/25 17:32 50 ML Lidocaine 1 patch DAILY TOP 04/30/25 10:30 05/02/25 10:58 1 PATCH Morphine Sulfate 1 mg Q6HP PRN IV 04/30/25 10:30 05/02/25 17:58 1 MG Metoprolol Tartrate 2.5 mg Q4HR PRN IV 04/30/25 11:30 05/01/25 12:06 2.5 MG Metoprolol Tartrate 12.5 mg BID PO 05/02/25 10:00 05/02/25 11:23 12.5 MG Memantine 5 mg Q12HR PO 05/02/25 10:00 05/02/25 22:00 5 MG Oxycodone/ Acetaminophen 1 tab Q6HP PRN PO 05/02/25 10:00 Docusate Sodium 100 mg BID PO 05/02/25 10:00 05/02/25 22:00 100 MG Enoxaparin Sodium 30 mg DAILY SC 05/03/25 10:00 05/04/25 09:38 30 MG Propofol 100 ml @ 1.296 mls/ hr Q24H IV 05/02/25 20:45 05/04/25 03:33 3.888 MLS/HR Midazolam HCl 100 ml @ 1 mls/hr Q24H IV 05/02/25 20:45 05/03/25 15:18 3 MLS/HR Fentanyl Citrate 250 ml @ 2.5 mls/hr Q24H IV 05/02/25 20:45 05/04/25 13:39 10 MLS/HR Sodium Phosphate 20 meq/Potassium Acetate 60 meq/ Potassium Phosphate 22 meq/ Calcium Gluconate 6.975 meq/ Magnesium Sulfate 14 meq/ Multivitamins 10 ml/Chromium/ Copper/Manganese/ Zinc 1 ml/Amino Acids/Dextrose/ Purified Water 1,269.5 ml @ 53 mls/hr [id number] IV 05/03/25 22:00 05/04/25 21:59 05/03/25 21:02 53 MLS/HR Sodium Acetate 40 meq/Potassium Acetate 10 meq/ Calcium Gluconate 9.3 meq/Magnesium Sulfate 16 meq/ Multivitamins 10 ml/Chromium/ Copper/Manganese/ Zinc 1 ml/Amino Acids/Dextrose/ Purified Water 1,260 ml @ 52 mls/hr [id number] IV 05/04/25 22:00 05/05/25 21:59 Laboratory Results Laboratory Tests 05/03/25 03:25 05/04/25 03:30 Chemistry Test 05/04/25 03:30 Albumin 2.8 g/dL (3.2-4.8) L Calcium Level 7.6 mg/dL (8.7-10.4) L Magnesium Level 1.9 mg/dL (1.6-2.6) Phosphorus Level 4.3 mg/dL (2.4-5.1) Total Protein 5.0 g/dL (5.7-8.2) L LFT Test 05/04/25 03:30 Alanine Aminotransferase (ALT) 43 U/L (7-40) H Alkaline Phosphatase 98 U/L (46-116) Aspartate Amino Transferase (AST) 25 U/L (13-40) Total Bilirubin 0.3 mg/dL (0.2-1.0) Urinalysis Test 04/15/25 15:45 Urine Color Light-orange (Yellow) Urine Clarity Ex.turbid (Clear) Urine pH 5.5 (5.0-9.0) Urine Specific [place] 1.028 (1.001-1.035) Urine Protein 1+ (Negative) H Urine Ketones Negative (Negative) Urine Blood 1+ /uL (Negative) H Urine Nitrite Negative (Negative) Urine Bilirubin Negative (Negative) Urine Urobilinogen 3 mg/dL (Negative) H Urine Leukocyte Esterase Negative /uL (Negative) Urine RBC 16 /hpf (0 - 4) Urine Microscopic WBC 1 /HPF (0-5) Urine Squamous Epithelial Cells Mod /hpf (<5) Urine Amorphous Crystals Few /hpf (None Seen) Urine Bacteria Few /hpf (None Seen) H Urine Hyaline Casts Few /lpf (0 - 2) Urine Mucus Few (None Seen) Urine Glucose Normal mg/dL (Normal) Blood Gas Results Test 05/04/25 09:08 Arterial Blood pH 7.431 (7.350-7.450) FiO2 % 30.0 Microbiology Microbiology Date/Time Source Procedure Growth Status 05/02/25 20:30 Sputum Gram Stain Pending Resulted 05/02/25 20:30 Sputum Respiratory Culture - Preliminary Resulted 05/02/25 00:00 Nose MRSA Screen - Final Complete 04/30/25 14:30 Pleural Fluid Gram Stain - Final Resulted 04/30/25 14:30 Pleural Fluid Body Fluid Culture - Preliminary Resulted Assessment/Plan Assessment/Plan Impression: -choledocholithiasis -acute pancreatitis -small-bowel obstruction, recurrent -dementia -cachexia -sepsis -COPD -GERD -Post op delirium -Accelerated HTN -A. fib Plan: Events: current intubated Chest x-ray reveals at left lung made open. -continue IV Reglan, start colace -out of bed to chair with physical therapy -Continue TPN -Pulmonology consult- case discussed -Continue Zosyn, micafungin -PPI -Antihypertensives -pain management: start percocet -continue bronchodilators, Mucomyst -repeat labs and chest x-ray in a.m. Total time spent with patient discussing and formulating plan of care: 35 minutes. Plan discussed with: Other Date of Service: May 04, 2025 Billing Provider: REESE SORTO DO Common Visit Codes: [id number] CARE 30-74 MIN REESE SORTO DO May 04, 2025 20:17
[2025-05-04] MEDS: TPN PER PHARMACY IV NR (20:51)
--- NOTE | 2025-05-04 23:43 | DVHPN2 ---
Subjective DOS: 05/04/2025 Patient seen and examined at bedside. Sedated, intubated on mechanical ventilator. Overnight events reviewed. Reviewed: Care Plan, H&P, Labs, Medications Changes from previous H/P or p: No Changes General: Per HPI Objective Vitals Vital Signs Date Time Temp Pulse Resp B/P (MAP) Pulse Ox O2 Delivery O2 Flow Rate FiO2 05/04/25 22:02 91 22 108/34 (58) 95 30 05/04/25 18:15 97.9 208.2 05/04/25 08:00 Mechanical Ventilator+ 05/02/25 19:46 10 Intake/Output Intake and Output 05/04/25 07:00 Intake Total 1362.9 ml Output Total 925 ml Balance 437.9 ml Intake Oral 0 ml IV Total 1362.9 ml Output Urine Total 925 ml Stool Total 0 ml Gastric Drainage Total 0 ml General Appearance: Alert, Cooperative, mild distress, Other (Underlying dementia. Currently on vent) HEENT: PERRLA, Other Lungs: Other (On vent. Transmitted breath sounds bilaterally. Decreased air entry bilaterally. No wheezing. Bibasilar crackles.) Cardiovascular: Normal S1, Normal S2 Abdomen: No tenderness, No hepatospenomegaly, Other (Reported BM yesterday evening. Hypoactive bowel sounds) Genitourinary: No Apparent Abnormalities (Grewal catheter) Musculoskeletal: Normal sensory function, Normal motor function Extremities: No edema, Normal pulses, No tenderness/swelling Neuro: Cranial nerves 3-12 NL, Other Skin: Dry, Intact, Wounds, Other (Surgical wound D&I) Psych/Mental Status: Mood NL Medications Current Medications Medications Dose Ordered Sig/Gregory Route Start Time Stop Time Status Last Admin Dose Admin Pantoprazole Sodium 40 mg DAILY IV 04/16/25 10:00 05/04/25 09:38 40 MG Piperacillin Sod/ Tazobactam Sod 100 ml @ 25 mls/hr Q8HR IV 04/16/25 22:00 05/04/25 20:56 25 MLS/HR Amino Acids 0 ml @ 0 mls/hr PER PHARMACY IV 04/18/25 17:45 Sodium Chloride 10 ml QSHIFT@10,22 IV 04/21/25 22:00 05/04/25 20:56 10 ML Albuterol 2.5 mg Q3HPRN PRN NEB 04/24/25 16:15 05/01/25 19:21 2.5 MG Lorazepam 0.25 mg Q6HP PRN IV 04/24/25 18:30 05/02/25 00:33 0.25 MG Nicardipine/ Sodium Chloride 200 ml @ 50 mls/hr Q4H IV 04/25/25 09:45 Acetylcysteine 100 mg Q4HR NEB 04/25/25 14:00 05/04/25 22:00 100 MG Ipratropium Oral 0.5 mg Q4HR NEB 04/25/25 18:00 05/04/25 22:01 0.5 MG Levalbuterol HCl 0.625 mg Q4HR NEB 04/26/25 10:00 05/04/25 22:00 0.625 MG Micafungin Sodium 100 mg/Sodium Chloride 100 ml @ 100 mls/hr DAILY IV 04/29/25 10:00 05/04/25 09:37 100 MLS/HR Lactated Ringer's 1,000 ml @ 50 mls/hr Q20H IV 04/29/25 08:15 05/04/25 20:45 50 MLS/HR Diagnostic Test (Pha) 1 strip Q6HR 04/30/25 12:00 05/04/25 23:35 1 STRIP Insulin Human Regular FOLLOW SLIDING SCALE Q6HR SC 04/30/25 12:00 05/03/25 01:11 8 UNITS Dextrose 50 ml UD IV 04/30/25 09:00 05/04/25 17:32 50 ML Lidocaine 1 patch DAILY TOP 04/30/25 10:30 05/02/25 10:58 1 PATCH Morphine Sulfate 1 mg Q6HP PRN IV 04/30/25 10:30 05/02/25 17:58 1 MG Metoprolol Tartrate 2.5 mg Q4HR PRN IV 04/30/25 11:30 05/01/25 12:06 2.5 MG Metoprolol Tartrate 12.5 mg BID PO 05/02/25 10:00 05/02/25 11:23 12.5 MG Memantine 5 mg Q12HR PO 05/02/25 10:00 05/02/25 22:00 5 MG Oxycodone/ Acetaminophen 1 tab Q6HP PRN PO 05/02/25 10:00 Docusate Sodium 100 mg BID PO 05/02/25 10:00 05/02/25 22:00 100 MG Enoxaparin Sodium 30 mg DAILY SC 05/03/25 10:00 05/04/25 09:38 30 MG Propofol 100 ml @ 1.296 mls/ hr Q24H IV 05/02/25 20:45 05/04/25 03:33 3.888 MLS/HR Midazolam HCl 100 ml @ 1 mls/hr Q24H IV 05/02/25 20:45 05/03/25 15:18 3 MLS/HR Fentanyl Citrate 250 ml @ 2.5 mls/hr Q24H IV 05/02/25 20:45 05/04/25 13:39 10 MLS/HR Sodium Acetate 40 meq/Potassium Acetate 10 meq/ Calcium Gluconate 9.3 meq/Magnesium Sulfate 16 meq/ Multivitamins 10 ml/Chromium/ Copper/Manganese/ Zinc 1 ml/Amino Acids/Dextrose/ Purified Water 1,260 ml @ 52 mls/hr [id number] IV 05/04/25 22:00 05/05/25 21:59 05/04/25 20:51 52 MLS/HR Laboratory Results Laboratory Tests 05/03/25 03:25 05/04/25 03:30 Chemistry Test 05/04/25 03:30 Albumin 2.8 g/dL (3.2-4.8) L Calcium Level 7.6 mg/dL (8.7-10.4) L Magnesium Level 1.9 mg/dL (1.6-2.6) Phosphorus Level 4.3 mg/dL (2.4-5.1) Total Protein 5.0 g/dL (5.7-8.2) L LFT Test 05/04/25 03:30 Alanine Aminotransferase (ALT) 43 U/L (7-40) H Alkaline Phosphatase 98 U/L (46-116) Aspartate Amino Transferase (AST) 25 U/L (13-40) Total Bilirubin 0.3 mg/dL (0.2-1.0) Urinalysis Test 04/15/25 15:45 Urine Color Light-orange (Yellow) Urine Clarity Ex.turbid (Clear) Urine pH 5.5 (5.0-9.0) Urine Specific [place] 1.028 (1.001-1.035) Urine Protein 1+ (Negative) H Urine Ketones Negative (Negative) Urine Blood 1+ /uL (Negative) H Urine Nitrite Negative (Negative) Urine Bilirubin Negative (Negative) Urine Urobilinogen 3 mg/dL (Negative) H Urine Leukocyte Esterase Negative /uL (Negative) Urine RBC 16 /hpf (0 - 4) Urine Microscopic WBC 1 /HPF (0-5) Urine Squamous Epithelial Cells Mod /hpf (<5) Urine Amorphous Crystals Few /hpf (None Seen) Urine Bacteria Few /hpf (None Seen) H Urine Hyaline Casts Few /lpf (0 - 2) Urine Mucus Few (None Seen) Urine Glucose Normal mg/dL (Normal) Blood Gas Results Test 05/04/25 09:08 Arterial Blood pH 7.431 (7.350-7.450) FiO2 % 30.0 Microbiology Microbiology Date/Time Source Procedure Growth Status 05/02/25 20:30 Sputum Gram Stain Pending Resulted 05/02/25 20:30 Sputum Respiratory Culture - Preliminary Resulted 05/02/25 00:00 Nose MRSA Screen - Final Complete 04/30/25 14:30 Pleural Fluid Gram Stain - Final Resulted 04/30/25 14:30 Pleural Fluid Body Fluid Culture - Preliminary Resulted Assessment/Plan Assessment/Plan Impression: Acute hypoxic respiratory failure On mechanical ventilator Atelectasis Lung collapse Pneumonia Hx of nicotine dependence Cachexia, BMI 17.4 Events: Patient required intubation overnight due to respiratory distress. Currently on mechanical ventilator On AC mode; RR 22, VT 450, PEEP 5, FiO2 30% Sedated on Versed, Propofol ABG reviewed, compensated. CXR today reveals low lung volumes. Airspace opacity left lung base may relate to atelectasis or consolidation. No effusion or pneumothorax. KUB on 05/02/25 showed small bowel dilation and CT abdomen on 05/03/25 showed possible small bowel obstruction Continue TPN for nutritional support NG to LIS - monitor output GI recs appreciated Metoprolol for tachycardia. Follow up Cardiology recs Continue bronchodilators Mucolytics with Mucomyst Chest percussive therapy Continue antibiotics Continue antifungals Incentive spirometry IV fluids with LR HOB elevation Aspiration precautions Taper sedation overnight We will consider CPAP in the AM CT chest demonstrated improved aeration of left upper lobe Repeat bronchoscopy was performed on 04/30/25 with removal of mucous plugs in left lower lobe bronchus. Left thoracentesis was performed on 04/30/25 with removal of 250 mL serosanguineous fluid. See separate procedure notes for details of both procedures. Pleural fluid cultures showed no growth S/p bronchoscopy on 04/26/25 with clearance of copious secretions in L1-L10. Endobronchial lesion in left mainstem bronchus, biopsied. Follow up biopsy results. Labs and imaging reviewed. Rest of plan as noted below. Plan: s/p intubation on mechanical ventilator. On AC mode; RR 22, VT 450, PEEP 5, FiO2 30% Titrate FIO2 to keep O2 saturation above 90%. VAP bundle. Daily ABG and CXR while intubated Pressors for hemodynamic support Titrate to keep mean arterial pressure greater than 65 mmHg Continue bronchodilators. Continue antibiotics Incentive spirometry Head of bed elevation Aspiration precautions NGT in place Monitor renal function. Monitor electrolytes. Supplement as necessary. Monitor ins and outs. DVT prophylaxis. Prognosis: Poor given patient's multiple co-morbidities. Condition: Critical Rest of plan per hospitalist and other consultants. A total of 35 minutes of critical care time was spent reviewing the patient record, examining the patient, making a diagnostic and therapeutic plan, discussing this plan with the medical personnel, following up on diagnostic studies and following the patient for clinical stability excluding any and all procedures. At least 50% of this time was spent in direct, [id number] contact. Thank you, JESÚS Ford, for allowing me to participate in this patient's care. Further recommendations will depend on the patient's clinical course. Please do not hesitate to contact me if you have any questions or concerns. This medical document was created using an electronic medical record system with [email or web address] computerized dictation system. Although these documentations are being carefully reviewed, there may still be some phonetic and typographical changes. The errors are purely typographical, due to imperfection on the software program, and do not reflect any compromise in the patient's medical care. Plan discussed with: Other (KIA Awad) Visit Coding Pulmonary Billing Provider: KARENA WESTFALL MD Date of Service if different f: May 04, 2025 Common Visit Codes: [id number] INP/OBS CARE(HIGH), [id number] CARE 30-74 MIN KARENA WESTFALL MD May 04, 2025 23:43
[2025-05-05] VITALS (94 sets, daily range): BP systolic 92–148; BP diastolic 30–114; PULSE 79–106; RESP 15–29; TEMP 98.4–100; O2SAT 74–100
[2025-05-05 04:01] LABS: Hematocrit 26.1 % (36.0-46.0); Hemoglobin 8.6 g/dL (12.2-16.2); Mean Corpuscular Hemoglobin 33.0 pg (28.0-32.0); Mean Corpuscular Volume 100.8 fL (80.0-100.0); Nucleated Red Blood Cells % 0.1 %
[2025-05-05 04:08] LABS: Alanine Aminotransferase 36 U/L (7-40); Alkaline Phosphatase 102 U/L (46-116); Anion Gap 7 (5-15); BUN/Creatinine Ratio 52.1 (10.0-20.0); Carbon Dioxide 28 mmol/L (20-31); Chloride 103 mmol/L (98-107); Glucose 101 mg/dL (74-106); Magnesium 2.1 mg/dL (1.6-2.6); Potassium 4.3 mmol/L (3.5-5.1); Sodium 138 mmol/L (136-145)
[2025-05-05 04:09] LABS: Albumin 3.0 g/dL (3.2-4.8); Bilirubin, Total 0.4 mg/dL (0.2-1.0); Blood Urea Nitrogen 25 mg/dL (9-23); Calcium 8.2 mg/dL (8.7-10.4); Total Protein 5.6 g/dL (5.7-8.2)
--- NOTE | 2025-05-05 04:57 | DVH ---
CHEST RADIOGRAPH Indication: intubated Technique: Single frontal view of the chest was obtained Comparison: XY CHEST PORTABLE on DOS: 05/04/25 FINDINGS: Lines and Tubes: Right PICC terminates in the superior vena cava. The enteric tube terminates in the stomach. The endotracheal tube terminates 6 cm above the choco. Lungs: Left basilar opacities similar to prior study. Pleura: No large pleural effusion. No pneumothorax. Cardiomediastinal contours: Unremarkable Bones: No acute osseous abnormality. IMPRESSION: 1. Similar position of the support lines and tubes. 2. Similar left basilar opacity which may reflect atelectasis and/or consolidation.
[2025-05-05 08:05] LABS: Base Excess 0.4 mmol/L (-2.0-3.0)
--- NOTE | 2025-05-05 08:41 | DVHPN2 ---
Subjective Intubated and sedated Reviewed: Care Plan, H&P, Labs, Medications Changes from previous H/P or p: No Changes General: Per HPI Objective Vitals Vital Signs Date Time Temp Pulse Resp B/P (MAP) Pulse Ox O2 Delivery O2 Flow Rate FiO2 05/05/25 08:00 30 05/05/25 06:14 90 22 138/66 (90) 98 05/05/25 03:15 99.5 211.1 05/04/25 20:00 Mechanical Ventilator+ Intake/Output Intake and Output 05/05/25 07:00 Intake Total 2671.528 ml Output Total 850 ml Balance 1821.528 ml Intake Oral 0 ml IV Total 2671.528 ml Output Urine Total 800 ml Stool Total 0 ml Gastric Drainage Total 50 ml General Appearance: Alert, Cooperative, mild distress, Other (Underlying dementia. Currently on vent) HEENT: PERRLA, Other Lungs: Other (On vent. Transmitted breath sounds bilaterally. Decreased air entry bilaterally. No wheezing. Bibasilar crackles.) Cardiovascular: Normal S1, Normal S2 Abdomen: No tenderness, No hepatospenomegaly, Other (Reported BM yesterday evening. Hypoactive bowel sounds) Genitourinary: No Apparent Abnormalities (Grewal catheter) Musculoskeletal: Normal sensory function, Normal motor function Extremities: No edema, Normal pulses, No tenderness/swelling Neuro: Cranial nerves 3-12 NL, Other Skin: Dry, Intact, Wounds, Other (Surgical wound D&I) Psych/Mental Status: Mood NL Medications Current Medications Medications Dose Ordered Sig/Gregory Route Start Time Stop Time Status Last Admin Dose Admin Pantoprazole Sodium 40 mg DAILY IV 04/16/25 10:00 05/04/25 09:38 40 MG Piperacillin Sod/ Tazobactam Sod 100 ml @ 25 mls/hr Q8HR IV 04/16/25 22:00 05/05/25 05:47 25 MLS/HR Amino Acids 0 ml @ 0 mls/hr PER PHARMACY IV 04/18/25 17:45 Sodium Chloride 10 ml QSHIFT@10,22 IV 04/21/25 22:00 05/04/25 20:56 10 ML Albuterol 2.5 mg Q3HPRN PRN NEB 04/24/25 16:15 05/01/25 19:21 2.5 MG Lorazepam 0.25 mg Q6HP PRN IV 04/24/25 18:30 05/02/25 00:33 0.25 MG Nicardipine/ Sodium Chloride 200 ml @ 50 mls/hr Q4H IV 04/25/25 09:45 Acetylcysteine 100 mg Q4HR NEB 04/25/25 14:00 05/05/25 06:14 100 MG Ipratropium [place] 0.5 mg Q4HR NEB 04/25/25 18:00 05/05/25 06:14 0.5 MG Levalbuterol HCl 0.625 mg Q4HR NEB 04/26/25 10:00 05/05/25 06:13 0.625 MG Micafungin Sodium 100 mg/Sodium Chloride 100 ml @ 100 mls/hr DAILY IV 04/29/25 10:00 05/04/25 09:37 100 MLS/HR Lactated Ringer's 1,000 ml @ 50 mls/hr Q20H IV 04/29/25 08:15 05/04/25 20:45 50 MLS/HR Diagnostic Test (Pha) 1 strip Q6HR 04/30/25 12:00 05/05/25 05:48 1 STRIP Insulin Human Regular FOLLOW SLIDING SCALE Q6HR SC 04/30/25 12:00 05/03/25 01:11 8 UNITS Dextrose 50 ml UD IV 04/30/25 09:00 05/04/25 17:32 50 ML Lidocaine 1 patch DAILY TOP 04/30/25 10:30 05/02/25 10:58 1 PATCH Morphine Sulfate 1 mg Q6HP PRN IV 04/30/25 10:30 05/02/25 17:58 1 MG Metoprolol Tartrate 2.5 mg Q4HR PRN IV 04/30/25 11:30 05/01/25 12:06 2.5 MG Metoprolol Tartrate 12.5 mg BID PO 05/02/25 10:00 05/02/25 11:23 12.5 MG Memantine 5 mg Q12HR PO 05/02/25 10:00 05/02/25 22:00 5 MG Oxycodone/ Acetaminophen 1 tab Q6HP PRN PO 05/02/25 10:00 Docusate Sodium 100 mg BID PO 05/02/25 10:00 05/02/25 22:00 100 MG Enoxaparin Sodium 30 mg DAILY SC 05/03/25 10:00 05/04/25 09:38 30 MG Propofol 100 ml @ 1.296 mls/ hr Q24H IV 05/02/25 20:45 05/05/25 05:47 2.592 MLS/HR Midazolam HCl 100 ml @ 1 mls/hr Q24H IV 05/02/25 20:45 05/03/25 15:18 3 MLS/HR Fentanyl Citrate 250 ml @ 2.5 mls/hr Q24H IV 05/02/25 20:45 05/04/25 13:39 10 MLS/HR Sodium Acetate 40 meq/Potassium Acetate 10 meq/ Calcium Gluconate 9.3 meq/Magnesium Sulfate 16 meq/ Multivitamins 10 ml/Chromium/ Copper/Manganese/ Zinc 1 ml/Amino Acids/Dextrose/ Purified Water 1,260 ml @ 52 mls/hr [id number] IV 05/04/25 22:00 05/05/25 21:59 05/04/25 20:51 52 MLS/HR Laboratory Results Laboratory Tests 05/05/25 02:30 Chemistry Test 05/05/25 02:30 Albumin 3.0 g/dL (3.2-4.8) L Calcium Level 8.2 mg/dL (8.7-10.4) L Magnesium Level 2.1 mg/dL (1.6-2.6) Phosphorus Level 3.6 mg/dL (2.4-5.1) Total Protein 5.6 g/dL (5.7-8.2) L LFT Test 05/05/25 02:30 Alanine Aminotransferase (ALT) 36 U/L (7-40) Alkaline Phosphatase 102 U/L (46-116) Aspartate Amino Transferase (AST) 22 U/L (13-40) Total Bilirubin 0.4 mg/dL (0.2-1.0) Urinalysis Test 04/15/25 15:45 Urine Color Light-orange (Yellow) Urine Clarity Ex.turbid (Clear) Urine pH 5.5 (5.0-9.0) Urine Specific [place] 1.028 (1.001-1.035) Urine Protein 1+ (Negative) H Urine Ketones Negative (Negative) Urine Blood 1+ /uL (Negative) H Urine Nitrite Negative (Negative) Urine Bilirubin Negative (Negative) Urine Urobilinogen 3 mg/dL (Negative) H Urine Leukocyte Esterase Negative /uL (Negative) Urine RBC 16 /hpf (0 - 4) Urine Microscopic WBC 1 /HPF (0-5) Urine Squamous Epithelial Cells Mod /hpf (<5) Urine Amorphous Crystals Few /hpf (None Seen) Urine Bacteria Few /hpf (None Seen) H Urine Hyaline Casts Few /lpf (0 - 2) Urine Mucus Few (None Seen) Urine Glucose Normal mg/dL (Normal) Blood Gas Results Test 05/04/25 09:08 05/05/25 07:40 Arterial Blood pH 7.431 (7.350-7.450) 7.428 (7.350-7.450) FiO2 % 30.0 30.0 Microbiology Microbiology Date/Time Source Procedure Growth Status 05/02/25 20:30 Sputum Gram Stain Pending Resulted 05/02/25 20:30 Sputum Respiratory Culture - Preliminary Resulted 05/02/25 00:00 Nose MRSA Screen - Final Complete 04/30/25 14:30 Pleural Fluid Gram Stain - Final Resulted 04/30/25 14:30 Pleural Fluid Body Fluid Culture - Preliminary Resulted Labs and/or images reviewed: Labs reviewed by me, Image(s) reviewed by me Assessment/Plan Assessment/Plan Impression: -choledocholithiasis -acute pancreatitis -small-bowel obstruction -dementia -cachexia -sepsis -COPD -GERD -Post op delirium -Accelerated HTN -A. fib Plan: Events: Patient currently intubated and sedated. -restart IV Reglan 10 mg q.8 hours -add D5 NS to TPN -being weaned sedation, attempt CPAP -Continue Zosyn, micafungin -PPI -full-dose anticoagulation -KUB -continue bronchodilators, Mucomyst -repeat labs and chest x-ray in a.m. Critical care time spent with patient discussing and formulating plan of care: 40 minutes. This does not include time spent performing procedures. This medical document was created using an electronic medical record system with [employer] system. Although this document has been carefully reviewed, there may still be some phonetic and typographical errors. These areas are purely typographical due to imperfections of the software programs, and do not reflect any compromise in the patient's medical care. Plan discussed with: Patient, Other (RN) My Orders Orders - JAYDEN HILL [employer] Procedure Category Date Status Time Metoclopramide PHA 05/05/25 Verified Injection (Reglan 14:00 Kub Abdomen Single XY 05/05/25 Verified View 08:33 Complete Blood Count LAB 05/06/25 Verified 05:00 Complete Blood Count LAB 05/07/25 Verified 05:00 Complete Blood Count LAB 05/08/25 Verified 05:00 Acetylcysteine PHA 05/05/25 Verified Inhalation 10% 10:00 Cpap Trial For Am ORDERS 05/05/25 Verified 08:33 Cpap/Sed Vacation Med ORDERS 05/05/25 Verified Weaning 08:33 D5w/Sod Chlo 0.9% Ns PHA 05/05/25 Verified 08:45 Date of Service: May 05, 2025 Billing Provider: JAYDEN HILL NP Common Visit Codes: [id number] CARE 30-74 MIN JAYDEN HILL NP May 05, 2025 08:41
[2025-05-05] MEDS: D5W/SOD CHLO 0.9% 1,000 ML IV SCH (09:10)
--- NOTE | 2025-05-05 09:31 | DVH ---
Date: 05/05/2025 08:50 AM Examination: XY KUB ABDOMEN SINGLE VIEW History: SBO vs ileus Comparison: XY KUB ABDOMEN SINGLE VIEW on DOS: 05/03/25, XY KUB ABDOMEN SINGLE VIEW on DOS: 05/03/25, X Y KUB ABDOMEN SINGLE VIEW on DOS: 05/02/25, XY KUB ABDOMEN SINGLE VIEW on DOS: 04/27/25, XY KUB ABDOM EN SINGLE VIEW on DOS: 04/24/25 TECHNIQUE: Frontal views of the abdomen was obtained. FINDINGS: Bowel gas pattern is unremarkable. Moderate left pleural effusion No acute osseous abnormality identified. Grewal catheter overlying the bladder. IMPRESSION: Moderate left pleural effusion Large stool burden.
[2025-05-05] MEDS: ENOXAPARIN SOD 100 MG/1 ML SYRINGE SC SCH (09:58)
[2025-05-05] MEDS ORDERED: ACETYLCYSTEINE 10 %(100MG/ML) SOL 4ML NEB SCH (10:00)
--- NOTE | 2025-05-05 14:08 | DVHPN2 ---
Progress Note Date Seen: May 05, 2025 Medical Necessity Reason Pt with a Central, PICC or Fol: Yes Objective vital signs Vital Sign Date Time Temp Pulse Resp B/P (MAP) Pulse Ox O2 Delivery O2 Flow Rate FiO2 05/05/25 12:15 101 22 118/61 (80) 98 30 05/05/25 11:00 99.1 210.4 05/05/25 08:00 Mechanical Ventilator+ Total Intake and Output 05/04/25 05/04/25 05/05/25 14:59 22:59 06:59 Intake Total 1003.4 ml 1044.968 ml 687.960 ml Output Total 0 ml 850 ml Balance 1003.4 ml 194.968 ml 687.960 ml medications Current Medications Medications Dose Ordered Sig/Gregory Route Start Time Stop Time Status Last Admin Dose Admin Pantoprazole Sodium 40 mg DAILY IV 04/16/25 10:00 05/05/25 09:58 40 MG Piperacillin Sod/ Tazobactam Sod 100 ml @ 25 mls/hr Q8HR IV 04/16/25 22:00 05/05/25 05:47 25 MLS/HR Amino Acids 0 ml @ 0 mls/hr PER PHARMACY IV 04/18/25 17:45 Sodium Chloride 10 ml QSHIFT@10,22 IV 04/21/25 22:00 05/05/25 09:58 10 ML Albuterol 2.5 mg Q3HPRN PRN NEB 04/24/25 16:15 05/01/25 19:21 2.5 MG Lorazepam 0.25 mg Q6HP PRN IV 04/24/25 18:30 05/02/25 00:33 0.25 MG Nicardipine/ Sodium Chloride 200 ml @ 50 mls/hr Q4H IV 04/25/25 09:45 Acetylcysteine 100 mg Q4HR NEB 04/25/25 14:00 05/05/25 10:13 100 MG Ipratropium [place] 0.5 mg Q4HR NEB 04/25/25 18:00 05/05/25 10:13 0.5 MG Levalbuterol HCl 0.625 mg Q4HR NEB 04/26/25 10:00 05/05/25 10:13 0.625 MG Micafungin Sodium 100 mg/Sodium Chloride 100 ml @ 100 mls/hr DAILY IV 04/29/25 10:00 05/05/25 09:59 100 MLS/HR Diagnostic Test (Pha) 1 strip Q6HR 04/30/25 12:00 05/05/25 12:44 1 STRIP Insulin Human Regular FOLLOW SLIDING SCALE Q6HR SC 04/30/25 12:00 05/03/25 01:11 8 UNITS Dextrose 50 ml UD IV 04/30/25 09:00 05/04/25 17:32 50 ML Lidocaine 1 patch DAILY TOP 04/30/25 10:30 05/02/25 10:58 1 PATCH Morphine Sulfate 1 mg Q6HP PRN IV 04/30/25 10:30 05/02/25 17:58 1 MG Metoprolol Tartrate 2.5 mg Q4HR PRN IV 04/30/25 11:30 05/01/25 12:06 2.5 MG Metoprolol Tartrate 12.5 mg BID PO 05/02/25 10:00 05/02/25 11:23 12.5 MG Memantine 5 mg Q12HR PO 05/02/25 10:00 05/02/25 22:00 5 MG Oxycodone/ Acetaminophen 1 tab Q6HP PRN PO 05/02/25 10:00 Docusate Sodium 100 mg BID PO 05/02/25 10:00 05/02/25 22:00 100 MG Propofol 100 ml @ 1.296 mls/ hr Q24H IV 05/02/25 20:45 05/05/25 05:47 2.592 MLS/HR Midazolam HCl 100 ml @ 1 mls/hr Q24H IV 05/02/25 20:45 05/03/25 15:18 3 MLS/HR Fentanyl Citrate 250 ml @ 2.5 mls/hr Q24H IV 05/02/25 20:45 05/05/25 09:58 10 MLS/HR Sodium Acetate 40 meq/Potassium Acetate 10 meq/ Calcium Gluconate 9.3 meq/Magnesium Sulfate 16 meq/ Multivitamins 10 ml/Chromium/ Copper/Manganese/ Zinc 1 ml/Amino Acids/Dextrose/ Purified Water 1,260 ml @ 52 mls/hr [id number] IV 05/04/25 22:00 05/05/25 21:59 05/04/25 20:51 52 MLS/HR Metoclopramide HCl 10 mg Q8HR IV 05/05/25 14:00 Acetylcysteine 100 mg Q4HR NEB 05/05/25 10:00 UNV Dextrose/Sodium Chloride 1,000 ml @ 50 mls/hr Q20H IV 05/05/25 08:45 05/05/25 09:10 50 MLS/HR Sodium Acetate 20 meq/Sodium Phosphate 20 meq/ Potassium Acetate 20 meq/Potassium Phosphate 22 meq/ Calcium Gluconate 6.97 meq/ Magnesium Sulfate 14 meq/ Multivitamins 10 ml/Chromium/ Copper/Manganese/ Zinc 1 ml/Amino Acids/Dextrose/ Purified Water 1,309.4892 ml @ 55 mls/hr [id number] IV 05/05/25 22:00 05/06/25 21:59 Enoxaparin Sodium 40 mg Q12HR SC 05/05/25 22:00 laboratory and microbiology Laboratory Tests 05/05/25 02:30 Test 05/05/25 02:30 Range/Units Serum Glucose 101 74-106 mg/dL Microbiology Date/Time Source Procedure Growth Status 05/02/25 20:30 Sputum Gram Stain Pending Resulted 05/02/25 20:30 Sputum Respiratory Culture - Preliminary Resulted 05/02/25 00:00 Nose MRSA Screen - Final Complete 04/30/25 14:30 Pleural Fluid Gram Stain - Final Resulted 04/30/25 14:30 Pleural Fluid Body Fluid Culture - Preliminary Resulted Problem List/Assessment/Plan Problem List/Assessment/Plan AFEBRILE VSS REMAINS INTUBATED THEN INTUBATED R/O ASPIRATION OG IN PLACE 100 CC ABD SOFT NON TENDER RECTAL EXAM BM SMEAR AND FLATUS CT SCAN ABD PELVIS R/O RECURRENT PARTIAL SBO OR ILEUS WOUND DRESSING DRY KEEP NPO CONTINUE SUPPORTIVE CARE FAMILY AWARE OF PT CONDITION NURSE AT BEDSIDE ONGOING PULM EVAL CLAMP NG 4 HRS AND CHECK RESIDUAL Plan discussed with: Patient, Other Dietary Evaluation Review Recommendations by RD: PPN/TPN Comments: 1) Increase TPN to meet at least 75% estimated daily needs 2) Advance to cardiac diet when medically feasible 3) Follow-up with gastroenterology and neurology 4) Continue to monitor I&O, labs, and skin integrity Expected Outcomes/Goals: 1) nutrition support to meet at least 75% estimated daily needs 2) labs to improve 3) diet to advance 4) gradual wt gain 5) f/u in 2-3 days GLORIA MCNEAL MD May 05, 2025 14:08
[2025-05-05] MEDS: METOCLOPRAMIDE HCL 5MG/ml INJ 2ml VIAL IV SCH (14:16)
[2025-05-05 18:24] LABS: Hematocrit 26.2 % (36.0-46.0); Hemoglobin 8.7 g/dL (12.2-16.2)
--- NOTE | 2025-05-05 18:34 | DVHPN2 ---
Progress Note Date Seen: May 05, 2025 Resident Creating Document: HOLLY DEAN RESIDENT Medical Necessity Reason Pt with a Central, PICC or Fol: Yes The following are medically ne: PICC Line, Grewal Catheter Subjective Review of Systems Patient is sedated and mechanically ventilated Minimal bowel movement reported Over last night NG suction about 200-300 mL of greenish fluid, in the day shift until the afternoon minimal NG suction KUB today showed large stool burden H&H decreased slightly from 9.2 to 8.7 Objective vital signs Vital Sign Date Time Temp Pulse Resp B/P (MAP) Pulse Ox O2 Delivery O2 Flow Rate FiO2 05/05/25 18:07 87 24 122/54 (76) 100 30 05/05/25 17:00 99.7 211.5 05/05/25 08:00 Mechanical Ventilator+ Total Intake and Output 05/04/25 05/04/25 05/05/25 15:00 23:00 07:00 Intake Total 1158.4 ml 942.760 ml 637.960 ml Output Total 0 ml 850 ml Balance 1158.4 ml 92.760 ml 637.960 ml medications Current Medications Medications Dose Ordered Sig/Gregory Route Start Time Stop Time Status Last Admin Dose Admin Pantoprazole Sodium 40 mg DAILY IV 04/16/25 10:00 05/05/25 09:58 40 MG Piperacillin Sod/ Tazobactam Sod 100 ml @ 25 mls/hr Q8HR IV 04/16/25 22:00 05/05/25 14:16 25 MLS/HR Amino Acids 0 ml @ 0 mls/hr PER PHARMACY IV 04/18/25 17:45 Sodium Chloride 10 ml QSHIFT@10,22 IV 04/21/25 22:00 05/05/25 09:58 10 ML Albuterol 2.5 mg Q3HPRN PRN NEB 04/24/25 16:15 05/01/25 19:21 2.5 MG Lorazepam 0.25 mg Q6HP PRN IV 04/24/25 18:30 05/02/25 00:33 0.25 MG Nicardipine/ Sodium Chloride 200 ml @ 50 mls/hr Q4H IV 04/25/25 09:45 Acetylcysteine 100 mg Q4HR NEB 04/25/25 14:00 05/05/25 18:07 100 MG Ipratropium [place] 0.5 mg Q4HR NEB 04/25/25 18:00 05/05/25 18:07 0.5 MG Levalbuterol HCl 0.625 mg Q4HR NEB 04/26/25 10:00 05/05/25 18:07 0.625 MG Micafungin Sodium 100 mg/Sodium Chloride 100 ml @ 100 mls/hr DAILY IV 04/29/25 10:00 05/05/25 09:59 100 MLS/HR Diagnostic Test (Pha) 1 strip Q6HR 04/30/25 12:00 05/05/25 12:44 1 STRIP Insulin Human Regular FOLLOW SLIDING SCALE Q6HR SC 04/30/25 12:00 05/03/25 01:11 8 UNITS Dextrose 50 ml UD IV 04/30/25 09:00 05/04/25 17:32 50 ML Lidocaine 1 patch DAILY TOP 04/30/25 10:30 05/02/25 10:58 1 PATCH Morphine Sulfate 1 mg Q6HP PRN IV 04/30/25 10:30 05/02/25 17:58 1 MG Metoprolol Tartrate 2.5 mg Q4HR PRN IV 04/30/25 11:30 05/01/25 12:06 2.5 MG Metoprolol Tartrate 12.5 mg BID PO 05/02/25 10:00 05/02/25 11:23 12.5 MG Memantine 5 mg Q12HR PO 05/02/25 10:00 05/02/25 22:00 5 MG Oxycodone/ Acetaminophen 1 tab Q6HP PRN PO 05/02/25 10:00 Docusate Sodium 100 mg BID PO 05/02/25 10:00 05/02/25 22:00 100 MG Propofol 100 ml @ 1.296 mls/ hr Q24H IV 05/02/25 20:45 05/05/25 16:10 2.592 MLS/HR Midazolam HCl 100 ml @ 1 mls/hr Q24H IV 05/02/25 20:45 05/03/25 15:18 3 MLS/HR Fentanyl Citrate 250 ml @ 2.5 mls/hr Q24H IV 05/02/25 20:45 05/05/25 09:58 10 MLS/HR Sodium Acetate 40 meq/Potassium Acetate 10 meq/ Calcium Gluconate 9.3 meq/Magnesium Sulfate 16 meq/ Multivitamins 10 ml/Chromium/ Copper/Manganese/ Zinc 1 ml/Amino Acids/Dextrose/ Purified Water 1,260 ml @ 52 mls/hr [id number] IV 05/04/25 22:00 05/05/25 21:59 05/04/25 20:51 52 MLS/HR Metoclopramide HCl 10 mg Q8HR IV 05/05/25 14:00 05/05/25 14:16 10 MG Acetylcysteine 100 mg Q4HR NEB 05/05/25 10:00 UNV Dextrose/Sodium Chloride 1,000 ml @ 50 mls/hr Q20H IV 05/05/25 08:45 05/05/25 09:10 50 MLS/HR Sodium Acetate 20 meq/Sodium Phosphate 20 meq/ Potassium Acetate 20 meq/Potassium Phosphate 22 meq/ Calcium Gluconate 6.97 meq/ Magnesium Sulfate 14 meq/ Multivitamins 10 ml/Chromium/ Copper/Manganese/ Zinc 1 ml/Amino Acids/Dextrose/ Purified Water 1,309.4892 ml @ 55 mls/hr [id number] IV 05/05/25 22:00 05/06/25 21:59 Enoxaparin Sodium 40 mg Q12HR SC 05/05/25 22:00 Examination Gen - no pallor, no scleral icterus Skin - Patients skin is warm and dry. HEENT - normocephalic, atraumatic, dry mucous membranes. Neck - supple, no lymphadenopathy Pulmonary - improved breath sounds in the left side, right side sounds without any crackles or wheezing cardiovascular - regular S1,S2 heard GI - soft abdomen status post exploratory laparotomy midline incision covered in a sterile dressing. Bowel sounds hypoactive Neurological - Patient is sedated and on mechanical ventilation laboratory and microbiology Laboratory Tests 05/05/25 17:39 05/05/25 02:30 Test 05/05/25 02:30 Range/Units Serum Glucose 101 74-106 mg/dL Microbiology Date/Time Source Procedure Growth Status 05/02/25 20:30 Sputum Gram Stain - Final Resulted 05/02/25 20:30 Sputum Respiratory Culture - Preliminary Resulted 05/02/25 00:00 Nose MRSA Screen - Final Complete 04/30/25 14:30 Pleural Fluid Gram Stain - Final Resulted 04/30/25 14:30 Pleural Fluid Body Fluid Culture - Preliminary Resulted Problem List/Assessment/Plan Problem List/Assessment/Plan Assessment Small-bowel obstruction s/p exploratory laparotomy with a possible transition point Choledocholithiasis Left lung atelectasis likely due to aspiration Status post bronchoscopy Plan - intubated and on mechanical ventilation - NG to LIS - continue on TPN - repeat CT abdomen pelvis done today on 05/03 showed findings suspicious for high-grade SBO with possible transition point in the LLQ at the region of small bowel anastomosis - KUB 11/0 3 shows large amount of stool burden - management as per primary surgeon PUD prophylaxis with Protonix Plan discussed with Dr. Cui Plan discussed with: Other (KIA Price) Dietary Evaluation Review Recommendations by RD: PPN/TPN Comments: 1) Increase TPN to meet at least 75% estimated daily needs 2) Advance to cardiac diet when medically feasible 3) Follow-up with gastroenterology and neurology 4) Continue to monitor I&O, labs, and skin integrity Expected Outcomes/Goals: 1) nutrition support to meet at least 75% estimated daily needs 2) labs to improve 3) diet to advance 4) gradual wt gain 5) f/u in 2-3 days HOLLY DEAN RESIDENT May 05, 2025 18:34
--- NOTE | 2025-05-05 19:48 | DVH ---
CHEST RADIOGRAPH Indication: PICC LINE PLACEMENT Technique: Single frontal view of the chest was obtained COMPARISON: XY CHEST XRAY 1 VIEW on DOS: 05/05/25, XY CHEST PORTABLE on DOS: 05/04/25, XY CHEST PORTABL E on DOS: 05/03/25, XY CHEST PORTABLE on DOS: 05/02/25, XY CHEST PORTABLE on DOS: 05/02/25 FINDINGS: Lines and Tubes: Endotracheal tube, enteric catheter and right PICC in satisfactory position. Lungs: Congestion. Pleura: Small left pleural effusion.No pneumothorax. Cardiomediastinal contours: Unremarkable Bones: Unremarkable IMPRESSION: Right PICC in satisfactory position overlying the superior vena cava.
[2025-05-05] MEDS: ENOXAPARIN SOD 40 MG/0.4 ML SYRINGE SC SCH (22:00)
[2025-05-05] MEDS: TPN PER PHARMACY IV NR (23:31)
--- NOTE | 2025-05-05 23:52 | DVHPN2 ---
Subjective DOS: 05/05/2025 Patient seen and examined at bedside. Sedated, intubated on mechanical ventilator. Overnight events reviewed. Reviewed: Care Plan, H&P, Labs, Medications Changes from previous H/P or p: No Changes General: Per HPI Objective Vitals Vital Signs Date Time Temp Pulse Resp B/P (MAP) Pulse Ox O2 Delivery O2 Flow Rate FiO2 05/05/25 22:00 79 22 114/45 (68) 100 30 05/05/25 20:00 Mechanical Ventilator+ 05/05/25 19:15 99.1 210.4 Intake/Output Intake and Output 05/05/25 07:00 Intake Total 2739.120 ml Output Total 850 ml Balance 1889.120 ml Intake Oral 0 ml IV Total 2739.120 ml Output Urine Total 800 ml Stool Total 0 ml Gastric Drainage Total 50 ml General Appearance: Alert, Cooperative, mild distress, Other (Underlying dementia. Currently on vent) HEENT: PERRLA, Other Lungs: Other (On vent. Transmitted breath sounds bilaterally. Decreased air entry bilaterally. No wheezing. Bibasilar crackles.) Cardiovascular: Normal S1, Normal S2 Abdomen: No tenderness, No hepatospenomegaly, Other (Reported BM yesterday evening. Hypoactive bowel sounds) Genitourinary: No Apparent Abnormalities (Grewal catheter) Musculoskeletal: Normal sensory function, Normal motor function Extremities: No edema, Normal pulses, No tenderness/swelling Neuro: Cranial nerves 3-12 NL, Other Skin: Dry, Intact, Wounds, Other (Surgical wound D&I) Psych/Mental Status: Mood NL Medications Current Medications Medications Dose Ordered Sig/Gregory Route Start Time Stop Time Status Last Admin Dose Admin Pantoprazole Sodium 40 mg DAILY IV 04/16/25 10:00 05/05/25 09:58 40 MG Piperacillin Sod/ Tazobactam Sod 100 ml @ 25 mls/hr Q8HR IV 04/16/25 22:00 05/05/25 23:44 25 MLS/HR Amino Acids 0 ml @ 0 mls/hr PER PHARMACY IV 04/18/25 17:45 Sodium Chloride 10 ml QSHIFT@10,22 IV 04/21/25 22:00 05/05/25 23:32 10 ML Albuterol 2.5 mg Q3HPRN PRN NEB 04/24/25 16:15 05/01/25 19:21 2.5 MG Lorazepam 0.25 mg Q6HP PRN IV 04/24/25 18:30 05/02/25 00:33 0.25 MG Nicardipine/ Sodium Chloride 200 ml @ 50 mls/hr Q4H IV 04/25/25 09:45 Acetylcysteine 100 mg Q4HR NEB 04/25/25 14:00 05/05/25 22:00 100 MG Ipratropium [place] 0.5 mg Q4HR NEB 04/25/25 18:00 05/05/25 22:00 0.5 MG Levalbuterol HCl 0.625 mg Q4HR NEB 04/26/25 10:00 05/05/25 22:00 0.625 MG Micafungin Sodium 100 mg/Sodium Chloride 100 ml @ 100 mls/hr DAILY IV 04/29/25 10:00 05/05/25 09:59 100 MLS/HR Diagnostic Test (Pha) 1 strip Q6HR 04/30/25 12:00 05/05/25 19:46 1 STRIP Insulin Human Regular FOLLOW SLIDING SCALE Q6HR SC 04/30/25 12:00 05/03/25 01:11 8 UNITS Dextrose 50 ml UD IV 04/30/25 09:00 05/04/25 17:32 50 ML Lidocaine 1 patch DAILY TOP 04/30/25 10:30 05/02/25 10:58 1 PATCH Morphine Sulfate 1 mg Q6HP PRN IV 04/30/25 10:30 05/02/25 17:58 1 MG Metoprolol Tartrate 2.5 mg Q4HR PRN IV 04/30/25 11:30 05/01/25 12:06 2.5 MG Metoprolol Tartrate 12.5 mg BID PO 05/02/25 10:00 05/02/25 11:23 12.5 MG Memantine 5 mg Q12HR PO 05/02/25 10:00 05/02/25 22:00 5 MG Oxycodone/ Acetaminophen 1 tab Q6HP PRN PO 05/02/25 10:00 Docusate Sodium 100 mg BID PO 05/02/25 10:00 05/02/25 22:00 100 MG Propofol 100 ml @ 1.296 mls/ hr Q24H IV 05/02/25 20:45 05/05/25 16:10 2.592 MLS/HR Midazolam HCl 100 ml @ 1 mls/hr Q24H IV 05/02/25 20:45 05/03/25 15:18 3 MLS/HR Fentanyl Citrate 250 ml @ 2.5 mls/hr Q24H IV 05/02/25 20:45 05/05/25 09:58 10 MLS/HR Metoclopramide HCl 10 mg Q8HR IV 05/05/25 14:00 05/05/25 23:30 10 MG Acetylcysteine 100 mg Q4HR NEB 05/05/25 10:00 UNV Dextrose/Sodium Chloride 1,000 ml @ 50 mls/hr Q20H IV 05/05/25 08:45 05/05/25 09:10 50 MLS/HR Sodium Acetate 20 meq/Sodium Phosphate 20 meq/ Potassium Acetate 20 meq/Potassium Phosphate 22 meq/ Calcium Gluconate 6.97 meq/ Magnesium Sulfate 14 meq/ Multivitamins 10 ml/Chromium/ Copper/Manganese/ Zinc 1 ml/Amino Acids/Dextrose/ Purified Water 1,309.4892 ml @ 55 mls/hr [id number] IV 05/05/25 22:00 05/06/25 21:59 05/05/25 23:31 55 MLS/HR Enoxaparin Sodium 40 mg Q12HR SC 05/05/25 22:00 05/05/25 22:00 40 MG Laboratory Results Laboratory Tests 05/05/25 02:30 05/05/25 17:39 Chemistry Test 05/05/25 02:30 Albumin 3.0 g/dL (3.2-4.8) L Calcium Level 8.2 mg/dL (8.7-10.4) L Magnesium Level 2.1 mg/dL (1.6-2.6) Phosphorus Level 3.6 mg/dL (2.4-5.1) Total Protein 5.6 g/dL (5.7-8.2) L LFT Test 05/05/25 02:30 Alanine Aminotransferase (ALT) 36 U/L (7-40) Alkaline Phosphatase 102 U/L (46-116) Aspartate Amino Transferase (AST) 22 U/L (13-40) Total Bilirubin 0.4 mg/dL (0.2-1.0) Urinalysis Test 04/15/25 15:45 Urine Color Light-orange (Yellow) Urine Clarity Ex.turbid (Clear) Urine pH 5.5 (5.0-9.0) Urine Specific Media 1.028 (1.001-1.035) Urine Protein 1+ (Negative) H Urine Ketones Negative (Negative) Urine Blood 1+ /uL (Negative) H Urine Nitrite Negative (Negative) Urine Bilirubin Negative (Negative) Urine Urobilinogen 3 mg/dL (Negative) H Urine Leukocyte Esterase Negative /uL (Negative) Urine RBC 16 /hpf (0 - 4) Urine Microscopic WBC 1 /HPF (0-5) Urine Squamous Epithelial Cells Mod /hpf (<5) Urine Amorphous Crystals Few /hpf (None Seen) Urine Bacteria Few /hpf (None Seen) H Urine Hyaline Casts Few /lpf (0 - 2) Urine Mucus Few (None Seen) Urine Glucose Normal mg/dL (Normal) Blood Gas Results Test 05/05/25 07:40 Arterial Blood pH 7.428 (7.350-7.450) FiO2 % 30.0 Microbiology Microbiology Date/Time Source Procedure Growth Status 05/02/25 20:30 Sputum Gram Stain - Final Resulted 05/02/25 20:30 Sputum Respiratory Culture - Preliminary Resulted 05/02/25 00:00 Nose MRSA Screen - Final Complete 04/30/25 14:30 Pleural Fluid Gram Stain - Final Resulted 04/30/25 14:30 Pleural Fluid Body Fluid Culture - Preliminary Resulted Assessment/Plan Assessment/Plan Impression: Acute hypoxic respiratory failure On mechanical ventilator Atelectasis Lung collapse Pneumonia Hx of nicotine dependence Cachexia, BMI 17.4 Events: Patient required intubation overnight due to respiratory distress. Currently on mechanical ventilator On AC mode; RR 22, VT 450, PEEP 5, FiO2 30% Sedated on Versed, Propofol On Fentanyl drip for analgesia ABG reviewed, compensated. KUB on 05/02/25 showed small bowel dilation and CT abdomen on 05/03/25 showed possible small bowel obstruction Chest/abdomen x-ray today showed moderate left pleural effusion. Large stool burden. SBO - Plan for possible surgical procedure. Surgery recommendations appreciated. Continue TPN for nutritional support NGT to LIS - monitor output GI recs appreciated Protonix for GI ppx Metoprolol for tachycardia. Follow up Cardiology recs Continue bronchodilators Mucolytics with Mucomyst Chest percussive therapy Continue antibiotics Continue antifungals Incentive spirometry IV fluids with LR HOB elevation Aspiration precautions S/p bronchoscopy on 04/26/25 with clearance of copious secretions in L1-L10. Endobronchial lesion in left mainstem bronchus, biopsied. Follow up biopsy results. CT chest demonstrated improved aeration of left upper lobe Repeat bronchoscopy was performed on 04/30/25 with removal of mucous plugs in left lower lobe bronchus. Left thoracentesis was performed on 04/30/25 with removal of 250 mL serosanguineous fluid. Pleural fluid cultures showed no growth Labs and imaging reviewed. Rest of plan as noted below. Plan: s/p intubation on mechanical ventilator. On AC mode; RR 22, VT 450, PEEP 5, FiO2 30% Titrate FIO2 to keep O2 saturation above 90%. VAP bundle. Daily ABG and CXR while intubated Sedate for vent synchrony Pressors for hemodynamic support Titrate to keep mean arterial pressure greater than 65 mmHg Continue bronchodilators. Continue antibiotics Incentive spirometry Head of bed elevation Aspiration precautions NGT in place Monitor renal function. Monitor electrolytes. Supplement as necessary. Monitor ins and outs. DVT prophylaxis. Prognosis: Poor given patient's multiple co-morbidities. Condition: Critical Rest of plan per hospitalist and other consultants. A total of 35 minutes of critical care time was spent reviewing the patient record, examining the patient, making a diagnostic and therapeutic plan, discussing this plan with the medical personnel, following up on diagnostic studies and following the patient for clinical stability excluding any and all procedures. At least 50% of this time was spent in direct, [id number] contact. Thank you, JESÚS Ford, for allowing me to participate in this patient's care. Further recommendations will depend on the patient's clinical course. Please do not hesitate to contact me if you have any questions or concerns. This medical document was created using an electronic medical record system with [employer] dictation system. Although these documentations are being carefully reviewed, there may still be some phonetic and typographical changes. The errors are purely typographical, due to imperfection on the software program, and do not reflect any compromise in the patient's medical care. Plan discussed with: Other (KIA Price) My Orders Orders - KARENA WESTFALL MD Procedure Category Date Status Time Chest Portable XY 05/06/25 Logged 04:00 Visit Coding Pulmonary Billing Provider: KARENA WESTFALL MD Date of Service if different f: May 05, 2025 Common Visit Codes: [id number] INP/OBS CARE(HIGH), [id number] CARE 30-74 MIN KARENA WESTFALL MD May 05, 2025 23:52
[2025-05-06] VITALS (107 sets, daily range): BP systolic 92–182; BP diastolic 26–121; PULSE 81–124; RESP 15–28; TEMP 90.1–101.3; O2SAT 84–100
[2025-05-06 02:42] LABS: Hematocrit 25.6 % (36.0-46.0); Hemoglobin 8.6 g/dL (12.2-16.2); Mean Corpuscular Hemoglobin 33.7 pg (28.0-32.0); Mean Corpuscular Volume 100.3 fL (80.0-100.0); Nucleated Red Blood Cells % 0.1 %
--- NOTE | 2025-05-06 04:46 | DVH ---
INDICATION: INTUBATED TECHNIQUE: Single frontal view of the chest was obtained COMPARISON: XY CHEST PORTABLE on DOS: 05/05/25, XY CHEST XRAY 1 VIEW on DOS: 05/05/25, XY CHEST PORTABLE on DOS: 05/04/25, XY CHEST PORTABLE on DOS: 05/03/25, XY CHEST PORTABLE on DOS: 05/02/25, XY CHEST PORTABLE on DOS: 05/05/25 FINDINGS: Lines and Tubes: Endotracheal tube, enteric catheter and right PICC in satisfactory position. Lungs: Congestion. Pleura: Small left pleural effusion.No pneumothorax. Cardiomediastinal contours: Unremarkable Bones: Unremarkable IMPRESSION:No interval change
[2025-05-06 04:47] LABS: Alanine Aminotransferase 33 U/L (7-40); Alkaline Phosphatase 103 U/L (46-116); Anion Gap 6 (5-15); BUN/Creatinine Ratio 51.2 (10.0-20.0); Bilirubin, Total 0.4 mg/dL (0.2-1.0); Blood Urea Nitrogen 22 mg/dL (9-23); Carbon Dioxide 28 mmol/L (20-31); Chloride 104 mmol/L (98-107); Magnesium 1.9 mg/dL (1.6-2.6); Potassium 3.6 mmol/L (3.5-5.1); Sodium 138 mmol/L (136-145)
[2025-05-06 05:19] LABS: Albumin 2.6 g/dL (3.2-4.8); Calcium 7.7 mg/dL (8.7-10.4); Glucose 134 mg/dL (74-106); Total Protein 4.9 g/dL (5.7-8.2)
--- NOTE | 2025-05-06 06:31 | DVH ---
ABDOMINAL RADIOGRAPH Indication: POSSIBLE SMALL BOWEL OBSTRUCTION Technique: Single frontal view of the abdomen was obtained Comparison: XY KUB ABDOMEN SINGLE VIEW on DOS: 05/05/25, XY KUB ABDOMEN SINGLE VIEW on DOS: 05/03/25, XY KUB ABDOMEN SINGLE VIEW on DOS: 05/03/25 FINDINGS: Lines and tubes: Enteric tube terminates in the stomach. There is overall paucity of bowel gas. No dilated bowel loops are identified on this single frontal view of the abdomen. No supine radiographic evidence of pneumoperitoneum. Bilateral hip replacements. T12 compression deformity of indeterminate age. IMPRESSION: 1. Enteric tube terminates in the stomach. 2. Overall paucity of bowel gas with no dilated bowel loops identified. If there is concern for small bowel obstruction, a CT of the abdomen pelvis is strongly recommended.
[2025-05-06] MEDS: FUROSEMIDE 20 MG/2 ML VIAL IV ONE (08:49)
[2025-05-06] MEDS: POTASSIUM CHL 20MEQ/100ML 100 ML IV ONE (08:49)
--- NOTE | 2025-05-06 09:13 | DVHPN2 ---
Subjective Intubated and sedated Reviewed: Care Plan, H&P, Labs, Medications Changes from previous H/P or p: No Changes General: Per HPI Objective Vitals Vital Signs Date Time Temp Pulse Resp B/P (MAP) Pulse Ox O2 Delivery O2 Flow Rate FiO2 05/06/25 08:49 161/86 05/06/25 07:41 115 26 99 30 05/06/25 06:30 99.9 211.8 05/05/25 20:00 Mechanical Ventilator+ Intake/Output Intake and Output 05/06/25 07:00 Intake Total 2804.636 ml Output Total 2025 ml Balance 779.636 ml Intake Oral 0 ml IV Total 2804.636 ml Output Urine Total 1850 ml Stool Total 0 ml Gastric Drainage Total 175 ml General Appearance: Cooperative, mild distress, Other (Underlying dementia. Currently on vent) HEENT: PERRLA, Other Lungs: Other (On vent. Transmitted breath sounds bilaterally. Decreased air entry bilaterally. No wheezing. Bibasilar crackles.) Cardiovascular: Normal S1, Normal S2 Abdomen: No tenderness, No hepatospenomegaly, Other (Reported BM yesterday evening. Hypoactive bowel sounds) Genitourinary: No Apparent Abnormalities (Grewal catheter) Musculoskeletal: Normal sensory function, Normal motor function Extremities: No edema, Normal pulses, No tenderness/swelling Neuro: Cranial nerves 3-12 NL, Other Skin: Dry, Intact, Wounds, Other (Surgical wound D&I) Psych/Mental Status: Mood NL Medications Current Medications Medications Dose Ordered Sig/Gregory Route Start Time Stop Time Status Last Admin Dose Admin Pantoprazole Sodium 40 mg DAILY IV 04/16/25 10:00 05/05/25 09:58 40 MG Piperacillin Sod/ Tazobactam Sod 100 ml @ 25 mls/hr Q8HR IV 04/16/25 22:00 05/06/25 06:33 25 MLS/HR Amino Acids 0 ml @ 0 mls/hr PER PHARMACY IV 04/18/25 17:45 Sodium Chloride 10 ml QSHIFT@10,22 IV 04/21/25 22:00 05/05/25 23:32 10 ML Albuterol 2.5 mg Q3HPRN PRN NEB 04/24/25 16:15 05/01/25 19:21 2.5 MG Lorazepam 0.25 mg Q6HP PRN IV 04/24/25 18:30 05/02/25 00:33 0.25 MG Nicardipine/ Sodium Chloride 200 ml @ 50 mls/hr Q4H IV 04/25/25 09:45 Acetylcysteine 100 mg Q4HR NEB 04/25/25 14:00 05/06/25 05:17 100 MG Ipratropium [place] 0.5 mg Q4HR NEB 04/25/25 18:00 05/06/25 05:17 0.5 MG Levalbuterol HCl 0.625 mg Q4HR NEB 04/26/25 10:00 05/06/25 05:17 0.625 MG Diagnostic Test (Pha) 1 strip Q6HR 04/30/25 12:00 05/06/25 06:00 1 STRIP Insulin Human Regular FOLLOW SLIDING SCALE Q6HR SC 04/30/25 12:00 05/03/25 01:11 8 UNITS Dextrose 50 ml UD IV 04/30/25 09:00 05/04/25 17:32 50 ML Lidocaine 1 patch DAILY TOP 04/30/25 10:30 05/02/25 10:58 1 PATCH Morphine Sulfate 1 mg Q6HP PRN IV 04/30/25 10:30 05/02/25 17:58 1 MG Metoprolol Tartrate 2.5 mg Q4HR PRN IV 04/30/25 11:30 05/01/25 12:06 2.5 MG Metoprolol Tartrate 12.5 mg BID PO 05/02/25 10:00 05/02/25 11:23 12.5 MG Memantine 5 mg Q12HR PO 05/02/25 10:00 05/02/25 22:00 5 MG Oxycodone/ Acetaminophen 1 tab Q6HP PRN PO 05/02/25 10:00 Docusate Sodium 100 mg BID PO 05/02/25 10:00 05/02/25 22:00 100 MG Propofol 100 ml @ 1.296 mls/ hr Q24H IV 05/02/25 20:45 05/06/25 05:57 2.592 MLS/HR Midazolam HCl 100 ml @ 1 mls/hr Q24H IV 05/02/25 20:45 05/03/25 15:18 3 MLS/HR Fentanyl Citrate 250 ml @ 2.5 mls/hr Q24H IV 05/02/25 20:45 05/05/25 09:58 10 MLS/HR Metoclopramide HCl 10 mg Q8HR IV 05/05/25 14:00 05/06/25 06:33 10 MG Acetylcysteine 100 mg Q4HR NEB 05/05/25 10:00 UNV Dextrose/Sodium Chloride 1,000 ml @ 50 mls/hr Q20H IV 05/05/25 08:45 05/06/25 05:56 50 MLS/HR Sodium Acetate 20 meq/Sodium Phosphate 20 meq/ Potassium Acetate 20 meq/Potassium Phosphate 22 meq/ Calcium Gluconate 6.97 meq/ Magnesium Sulfate 14 meq/ Multivitamins 10 ml/Chromium/ Copper/Manganese/ Zinc 1 ml/Amino Acids/Dextrose/ Purified Water 1,309.4892 ml @ 55 mls/hr [id number] IV 05/05/25 22:00 05/06/25 21:59 05/05/25 23:31 55 MLS/HR Enoxaparin Sodium 40 mg Q12HR SC 05/05/25 22:00 05/05/25 22:00 40 MG Laboratory Results Laboratory Tests 05/06/25 02:00 Chemistry Test 05/06/25 02:00 Albumin 2.6 g/dL (3.2-4.8) L Calcium Level 7.7 mg/dL (8.7-10.4) L Magnesium Level 1.9 mg/dL (1.6-2.6) Phosphorus Level 2.4 mg/dL (2.4-5.1) Total Protein 4.9 g/dL (5.7-8.2) L LFT Test 05/06/25 02:00 Alanine Aminotransferase (ALT) 33 U/L (7-40) Alkaline Phosphatase 103 U/L (46-116) Aspartate Amino Transferase (AST) 25 U/L (13-40) Total Bilirubin 0.4 mg/dL (0.2-1.0) Urinalysis Test 04/15/25 15:45 Urine Color Light-orange (Yellow) Urine Clarity Ex.turbid (Clear) Urine pH 5.5 (5.0-9.0) Urine Specific [place] 1.028 (1.001-1.035) Urine Protein 1+ (Negative) H Urine Ketones Negative (Negative) Urine Blood 1+ /uL (Negative) H Urine Nitrite Negative (Negative) Urine Bilirubin Negative (Negative) Urine Urobilinogen 3 mg/dL (Negative) H Urine Leukocyte Esterase Negative /uL (Negative) Urine RBC 16 /hpf (0 - 4) Urine Microscopic WBC 1 /HPF (0-5) Urine Squamous Epithelial Cells Mod /hpf (<5) Urine Amorphous Crystals Few /hpf (None Seen) Urine Bacteria Few /hpf (None Seen) H Urine Hyaline Casts Few /lpf (0 - 2) Urine Mucus Few (None Seen) Urine Glucose Normal mg/dL (Normal) Microbiology Microbiology Date/Time Source Procedure Growth Status 05/02/25 20:30 Sputum Gram Stain - Final Resulted 05/02/25 20:30 Sputum Respiratory Culture - Preliminary Resulted 05/02/25 00:00 Nose MRSA Screen - Final Complete 04/30/25 14:30 Pleural Fluid Gram Stain - Final Resulted 04/30/25 14:30 Pleural Fluid Body Fluid Culture - Preliminary Resulted Labs and/or images reviewed: Labs reviewed by me, Image(s) reviewed by me Assessment/Plan Assessment/Plan Impression: -choledocholithiasis -acute pancreatitis -small-bowel obstruction -dementia -cachexia -sepsis -COPD -GERD -Post op delirium -Accelerated HTN -A. fib Plan: Events: Patient currently intubated and sedated. CPAP with adequate respiratory status. KUB without any signs of ileus. NG secretions 75 mL overnight. -IV Reglan 10 mg q.8 hours -add D5 NS, continue TPN -IV diuresis -being weaned sedation, attempt CPAP -Continue Zosyn, stop micafungin -PPI -full-dose anticoagulation -continue bronchodilators, Mucomyst -repeat labs and chest x-ray in a.m. Critical care time spent with patient discussing and formulating plan of care: 40 minutes. This does not include time spent performing procedures. This medical document was created using an electronic medical record system with [employer] dictation system. Although this document has been carefully reviewed, there may still be some phonetic and typographical errors. These areas are purely typographical due to imperfections of the software programs, and do not reflect any compromise in the patient's medical care. Plan discussed with: Patient, Other (RN) My Orders Orders - JAYDEN HILL NP Procedure Category Date Status Time Enoxaparin Sodium PHA 11/3/25 In Process (Lovenox) 22:00 Potassium Chl PHA 05/06/25 In Process 20meq/100ml 08:15 Acetylcysteine PHA 05/06/25 Logged Inhalation 10% 12:00 Ipratropium Medneb PHA 05/06/25 Logged (Atrovent Medneb) 12:00 Levalbuterol Hcl PHA 05/06/25 Logged (Xopenex Medneb) 12:00 Date of Service: May 06, 2025 Billing Provider: JAYDEN HILL NP Common Visit Codes: [id number] CARE 30-74 MIN JAYDEN HILL NP May 06, 2025 09:13
[2025-05-06 10:01] LABS: Base Excess 1.4 mmol/L (-2.0-3.0)
[2025-05-06] MEDS: POTASSIUM PHOSPHATE 22 MEQ in SODIUM CHL 0.9% 100 ML IV ONE (11:25)
[2025-05-06] MEDS: LEVALBUTEROL HCL 1.25 MG/3 ML NEB NEB SCH (12:14)
[2025-05-06] MEDS: IPRATROPIUM BROM 0.5 MG/2.5ML INH SOL NEB SCH (12:14)
[2025-05-06] MEDS: ACETYLCYSTEINE 10 %(100MG/ML) SOL 4ML NEB SCH (12:14)
[2025-05-06] MEDS: ACETAMINOPHEN IV 1000 MG/100ML (10MG/ML) IV ONE (14:11)
--- NOTE | 2025-05-06 17:04 | DVHPN2 ---
Progress Note Date Seen: May 06, 2025 Medical Necessity Reason Pt with a Central, PICC or Fol: Yes The following are medically ne: PICC Line, Grewal Catheter Objective vital signs Vital Sign Date Time Temp Pulse Resp B/P (MAP) Pulse Ox O2 Delivery O2 Flow Rate FiO2 05/06/25 15:36 103 24 124/56 (78) 97 30 05/06/25 13:31 101.1 214.0 05/06/25 08:00 Mechanical Ventilator+ Total Intake and Output 05/05/25 05/05/25 05/06/25 15:00 23:00 07:00 Intake Total 906.960 ml 1012.736 ml 884.940 ml Output Total 0 ml 850 ml 1175 ml Balance 906.960 ml 162.736 ml -290.060 ml medications Current Medications Medications Dose Ordered Sig/Gregory Route Start Time Stop Time Status Last Admin Dose Admin Pantoprazole Sodium 40 mg DAILY IV 04/16/25 10:00 05/06/25 11:29 40 MG Piperacillin Sod/ Tazobactam Sod 100 ml @ 25 mls/hr Q8HR IV 04/16/25 22:00 05/06/25 14:11 25 MLS/HR Amino Acids 0 ml @ 0 mls/hr PER PHARMACY IV 04/18/25 17:45 Sodium Chloride 10 ml QSHIFT@10,22 IV 04/21/25 22:00 05/06/25 11:24 10 ML Albuterol 2.5 mg Q3HPRN PRN NEB 04/24/25 16:15 05/01/25 19:21 2.5 MG Nicardipine/ Sodium Chloride 200 ml @ 50 mls/hr Q4H IV 04/25/25 09:45 Diagnostic Test (Pha) 1 strip Q6HR 04/30/25 12:00 05/06/25 14:28 1 STRIP Insulin Human Regular FOLLOW SLIDING SCALE Q6HR SC 04/30/25 12:00 05/06/25 14:30 2 UNITS Dextrose 50 ml UD IV 04/30/25 09:00 05/04/25 17:32 50 ML Lidocaine 1 patch DAILY TOP 04/30/25 10:30 05/02/25 10:58 1 PATCH Morphine Sulfate 1 mg Q6HP PRN IV 04/30/25 10:30 05/02/25 17:58 1 MG Metoprolol Tartrate 2.5 mg Q4HR PRN IV 04/30/25 11:30 05/06/25 09:11 2.5 MG Oxycodone/ Acetaminophen 1 tab Q6HP PRN PO 05/02/25 10:00 Docusate Sodium 100 mg BID PO 05/02/25 10:00 05/02/25 22:00 100 MG Propofol 100 ml @ 1.296 mls/ hr Q24H IV 05/02/25 20:45 05/06/25 05:57 2.592 MLS/HR Fentanyl Citrate 250 ml @ 2.5 mls/hr Q24H IV 05/02/25 20:45 05/05/25 09:58 10 MLS/HR Metoclopramide HCl 10 mg Q8HR IV 05/05/25 14:00 05/06/25 14:11 10 MG Acetylcysteine 100 mg Q4HR NEB 05/05/25 10:00 UNV Dextrose/Sodium Chloride 1,000 ml @ 50 mls/hr Q20H IV 05/05/25 08:45 05/06/25 05:56 50 MLS/HR Sodium Acetate 20 meq/Sodium Phosphate 20 meq/ Potassium Acetate 20 meq/Potassium Phosphate 22 meq/ Calcium Gluconate 6.97 meq/ Magnesium Sulfate 14 meq/ Multivitamins 10 ml/Chromium/ Copper/Manganese/ Zinc 1 ml/Amino Acids/Dextrose/ Purified Water 1,309.4892 ml @ 55 mls/hr [id number] IV 05/05/25 22:00 05/06/25 21:59 05/05/25 23:31 55 MLS/HR Enoxaparin Sodium 40 mg Q12HR SC 05/05/25 22:00 05/06/25 11:29 40 MG Acetylcysteine 100 mg Q6HR NEB 05/06/25 12:00 05/06/25 12:14 100 MG Ipratropium [place] 0.5 mg Q6HR NEB 05/06/25 12:00 05/06/25 12:14 0.5 MG Levalbuterol HCl 0.625 mg Q6HR NEB 05/06/25 12:00 05/06/25 12:14 0.625 MG Sodium Acetate 20 meq/Sodium Phosphate 20 meq/ Potassium Acetate 40 meq/Potassium Phosphate 22 meq/ Calcium Gluconate 6.97 meq/ Magnesium Sulfate 16 meq/ Multivitamins 10 ml/Chromium/ Copper/Manganese/ Zinc 1 ml/Amino Acids/Dextrose/ Purified Water 1,369.9892 ml @ 57 mls/hr Q24H3M IV 05/06/25 22:00 05/07/25 21:59 laboratory and microbiology Laboratory Tests 05/06/25 02:00 Test 05/06/25 02:00 Range/Units Serum Glucose 134 H 74-106 mg/dL Microbiology Date/Time Source Procedure Growth Status 05/02/25 20:30 Sputum Gram Stain - Final Complete 05/02/25 20:30 Sputum Respiratory Culture - Final Complete 05/02/25 00:00 Nose MRSA Screen - Final Complete 04/30/25 14:30 Pleural Fluid Gram Stain - Final Complete 04/30/25 14:30 Pleural Fluid Body Fluid Culture - Final Complete Problem List/Assessment/Plan Problem List/Assessment/Plan FEBRILE TEMP 100 VSS REMAINS INTUBATED AWAKE AND RESPONSIVE OG IN PLACE 50 CC ABD SOFT NON TENDER NO BM WOUND DRESSING DRY KEEP NPO CONTINUE SUPPORTIVE CARE FAMILY AWARE OF PT CONDITION NURSE AT BEDSIDE ONGOING PULM EVAL CLAMP NG AM Plan discussed with: Patient, Other My Orders My Orders Orders - GLORIA MCNEAL MD Procedure Category Date Status Time Chest Portable XY 05/05/25 Resulted 17:05 Kub Abdomen Single XY 05/06/25 Resulted View 08:00 Dietary Evaluation Review Recommendations by RD: PPN/TPN Comments: 1) Increase TPN to meet at least 75% estimated daily needs 2) Advance to cardiac diet when medically feasible 3) Follow-up with gastroenterology and neurology 4) Continue to monitor I&O, labs, and skin integrity Expected Outcomes/Goals: 1) nutrition support to meet at least 75% estimated daily needs 2) labs to improve 3) diet to advance 4) gradual wt gain 5) f/u in 2-3 days GLORIA MCNEAL MD May 06, 2025 17:04
--- NOTE | 2025-05-06 17:44 | DVHPN2 ---
Progress Note Date Seen: May 06, 2025 Resident Creating Document: HOLLY DEAN RESIDENT Medical Necessity Reason Pt with a Central, PICC or Fol: Yes The following are medically ne: PICC Line, Grewal Catheter Subjective Review of Systems Patient seen and examined at bedside On CPAP NPO Abdomen is to put minimal bowel sounds and is on Reglan q.8 hours OG suction 7 5 mL overnight, about 75 mL during day shift Objective vital signs Vital Sign Date Time Temp Pulse Resp B/P (MAP) Pulse Ox O2 Delivery O2 Flow Rate FiO2 05/06/25 17:30 100.2 98 21 122/53 (76) 100 212.4 05/06/25 16:00 30 05/06/25 08:00 Mechanical Ventilator+ Total Intake and Output 05/05/25 05/05/25 05/06/25 15:00 23:00 07:00 Intake Total 906.960 ml 1012.736 ml 884.940 ml Output Total 0 ml 850 ml 1175 ml Balance 906.960 ml 162.736 ml -290.060 ml medications Current Medications Medications Dose Ordered Sig/Gregory Route Start Time Stop Time Status Last Admin Dose Admin Pantoprazole Sodium 40 mg DAILY IV 04/16/25 10:00 05/06/25 11:29 40 MG Piperacillin Sod/ Tazobactam Sod 100 ml @ 25 mls/hr Q8HR IV 04/16/25 22:00 05/06/25 14:11 25 MLS/HR Amino Acids 0 ml @ 0 mls/hr PER PHARMACY IV 04/18/25 17:45 Sodium Chloride 10 ml QSHIFT@,22 IV 04/21/25 22:00 05/06/25 11:24 10 ML Albuterol 2.5 mg Q3HPRN PRN NEB 04/24/25 16:15 05/01/25 19:21 2.5 MG Nicardipine/ Sodium Chloride 200 ml @ 50 mls/hr Q4H IV 04/25/25 09:45 Diagnostic Test (Pha) 1 strip Q6HR 04/30/25 12:00 05/06/25 14:28 1 STRIP Insulin Human Regular FOLLOW SLIDING SCALE Q6HR SC 04/30/25 12:00 05/06/25 14:30 2 UNITS Dextrose 50 ml UD IV 04/30/25 09:00 05/04/25 17:32 50 ML Lidocaine 1 patch DAILY TOP 04/30/25 10:30 05/02/25 10:58 1 PATCH Morphine Sulfate 1 mg Q6HP PRN IV 04/30/25 10:30 05/02/25 17:58 1 MG Metoprolol Tartrate 2.5 mg Q4HR PRN IV 04/30/25 11:30 05/06/25 09:11 2.5 MG Oxycodone/ Acetaminophen 1 tab Q6HP PRN PO 05/02/25 10:00 Docusate Sodium 100 mg BID PO 05/02/25 10:00 05/02/25 22:00 100 MG Propofol 100 ml @ 1.296 mls/ hr Q24H IV 05/02/25 20:45 05/06/25 05:57 2.592 MLS/HR Fentanyl Citrate 250 ml @ 2.5 mls/hr Q24H IV 05/02/25 20:45 05/05/25 09:58 10 MLS/HR Metoclopramide HCl 10 mg Q8HR IV 05/05/25 14:00 05/06/25 14:11 10 MG Acetylcysteine 100 mg Q4HR NEB 05/05/25 10:00 UNV Dextrose/Sodium Chloride 1,000 ml @ 50 mls/hr Q20H IV 05/05/25 08:45 05/06/25 05:56 50 MLS/HR Sodium Acetate 20 meq/Sodium Phosphate 20 meq/ Potassium Acetate 20 meq/Potassium Phosphate 22 meq/ Calcium Gluconate 6.97 meq/ Magnesium Sulfate 14 meq/ Multivitamins 10 ml/Chromium/ Copper/Manganese/ Zinc 1 ml/Amino Acids/Dextrose/ Purified Water 1,309.4892 ml @ 55 mls/hr [id number] IV 05/05/25 22:00 05/06/25 21:59 05/05/25 23:31 55 MLS/HR Enoxaparin Sodium 40 mg Q12HR SC 05/05/25 22:00 05/06/25 11:29 40 MG Acetylcysteine 100 mg Q6HR NEB 05/06/25 12:00 05/06/25 12:14 100 MG Ipratropium [place] 0.5 mg Q6HR NEB 05/06/25 12:00 05/06/25 12:14 0.5 MG Levalbuterol HCl 0.625 mg Q6HR NEB 05/06/25 12:00 05/06/25 12:14 0.625 MG Sodium Acetate 20 meq/Sodium Phosphate 20 meq/ Potassium Acetate 40 meq/Potassium Phosphate 22 meq/ Calcium Gluconate 6.97 meq/ Magnesium Sulfate 16 meq/ Multivitamins 10 ml/Chromium/ Copper/Manganese/ Zinc 1 ml/Amino Acids/Dextrose/ Purified Water 1,369.9892 ml @ 57 mls/hr Q24H3M IV 05/06/25 22:00 05/07/25 21:59 Examination Gen - no pallor, no scleral icterus Skin - Patients skin is warm and dry. HEENT - normocephalic, atraumatic, dry mucous membranes. Neck - supple, no lymphadenopathy Pulmonary - improved breath sounds in the left side, right side sounds without any crackles or wheezing cardiovascular - regular S1,S2 heard GI - soft abdomen status post exploratory laparotomy midline incision covered in a sterile dressing. Bowel sounds hypoactive Neurological - Patient is awake, responsive and on CPAP laboratory and microbiology Laboratory Tests 05/06/25 02:00 Test 05/06/25 02:00 Range/Units Serum Glucose 134 H 74-106 mg/dL Microbiology Date/Time Source Procedure Growth Status 05/02/25 20:30 Sputum Gram Stain - Final Complete 05/02/25 20:30 Sputum Respiratory Culture - Final Complete 05/02/25 00:00 Nose MRSA Screen - Final Complete 04/30/25 14:30 Pleural Fluid Gram Stain - Final Complete 04/30/25 14:30 Pleural Fluid Body Fluid Culture - Final Complete Problem List/Assessment/Plan Problem List/Assessment/Plan Assessment Small-bowel obstruction s/p exploratory laparotomy with a possible transition point Choledocholithiasis Left lung atelectasis likely due to aspiration Status post bronchoscopy Plan - intubated and on mechanical ventilation - NG to LIS - continue on TPN and NPO - repeat CT abdomen pelvis done today on 05/03 showed findings suspicious for high-grade SBO with possible transition point in the LLQ at the region of small bowel anastomosis - KUB 3 shows large amount of stool burden - diet to be advanced as per primary surgeon PUD prophylaxis with Protonix Plan discussed with Dr. Cui Plan discussed with: Other (K[facility] Price) Dietary Evaluation Review Recommendations by RD: PPN/TPN Comments: 1) Increase TPN to meet at least 75% estimated daily needs 2) Advance to cardiac diet when medically feasible 3) Follow-up with gastroenterology and neurology 4) Continue to monitor I&O, labs, and skin integrity Expected Outcomes/Goals: 1) nutrition support to meet at least 75% estimated daily needs 2) labs to improve 3) diet to advance 4) gradual wt gain 5) f/u in 2-3 days HOLLY DEAN RESIDENT May 06, 2025 17:44
--- NOTE | 2025-05-06 18:54 | DVHPN2 ---
Subjective DOS: 05/06/2025 Patient seen and examined at bedside. Sedated, intubated on mechanical ventilator. Overnight events reviewed. Reviewed: Care Plan, H&P, Labs, Medications Changes from previous H/P or p: No Changes General: Per HPI Objective Vitals Vital Signs Date Time Temp Pulse Resp B/P (MAP) Pulse Ox O2 Delivery O2 Flow Rate FiO2 05/06/25 18:30 99.7 101 22 135/52 (79) 100 211.5 05/06/25 18:17 30 05/06/25 08:00 Mechanical Ventilator+ Intake/Output Intake and Output 05/06/25 07:00 Intake Total 2804.636 ml Output Total 2025 ml Balance 779.636 ml Intake Oral 0 ml IV Total 2804.636 ml Output Urine Total 1850 ml Stool Total 0 ml Gastric Drainage Total 175 ml General Appearance: Cooperative, mild distress, Other (Underlying dementia. Currently on vent) HEENT: PERRLA, Other Lungs: Other (On vent. Transmitted breath sounds bilaterally. Decreased air entry bilaterally. No wheezing. Bibasilar crackles.) Cardiovascular: Normal S1, Normal S2 Abdomen: No tenderness, No hepatospenomegaly, Other (Reported BM yesterday evening. Hypoactive bowel sounds) Genitourinary: No Apparent Abnormalities (Grewal catheter) Musculoskeletal: Normal sensory function, Normal motor function Extremities: No edema, Normal pulses, No tenderness/swelling Neuro: Cranial nerves 3-12 NL, Other Skin: Dry, Intact, Wounds, Other (Surgical wound D&I) Psych/Mental Status: Mood NL Medications Current Medications Medications Dose Ordered Sig/Gregory Route Start Time Stop Time Status Last Admin Dose Admin Pantoprazole Sodium 40 mg DAILY IV 04/16/25 10:00 05/06/25 11:29 40 MG Piperacillin Sod/ Tazobactam Sod 100 ml @ 25 mls/hr Q8HR IV 04/16/25 22:00 05/06/25 14:11 25 MLS/HR Amino Acids 0 ml @ 0 mls/hr PER PHARMACY IV 04/18/25 17:45 Sodium Chloride 10 ml QSHIFT@10,22 IV 04/21/25 22:00 05/06/25 11:24 10 ML Albuterol 2.5 mg Q3HPRN PRN NEB 04/24/25 16:15 05/01/25 19:21 2.5 MG Nicardipine/ Sodium Chloride 200 ml @ 50 mls/hr Q4H IV 04/25/25 09:45 Diagnostic Test (Pha) 1 strip Q6HR 04/30/25 12:00 05/06/25 18:13 1 STRIP Insulin Human Regular FOLLOW SLIDING SCALE Q6HR SC 04/30/25 12:00 05/06/25 14:30 2 UNITS Dextrose 50 ml UD IV 04/30/25 09:00 05/04/25 17:32 50 ML Lidocaine 1 patch DAILY TOP 04/30/25 10:30 05/02/25 10:58 1 PATCH Morphine Sulfate 1 mg Q6HP PRN IV 04/30/25 10:30 05/02/25 17:58 1 MG Metoprolol Tartrate 2.5 mg Q4HR PRN IV 04/30/25 11:30 05/06/25 09:11 2.5 MG Oxycodone/ Acetaminophen 1 tab Q6HP PRN PO 05/02/25 10:00 Docusate Sodium 100 mg BID PO 05/02/25 10:00 05/02/25 22:00 100 MG Propofol 100 ml @ 1.296 mls/ hr Q24H IV 05/02/25 20:45 05/06/25 17:58 1.296 MLS/HR Fentanyl Citrate 250 ml @ 2.5 mls/hr Q24H IV 05/02/25 20:45 05/05/25 09:58 10 MLS/HR Metoclopramide HCl 10 mg Q8HR IV 05/05/25 14:00 05/06/25 14:11 10 MG Acetylcysteine 100 mg Q4HR NEB 05/05/25 10:00 UNV Dextrose/Sodium Chloride 1,000 ml @ 50 mls/hr Q20H IV 05/05/25 08:45 05/06/25 05:56 50 MLS/HR Sodium Acetate 20 meq/Sodium Phosphate 20 meq/ Potassium Acetate 20 meq/Potassium Phosphate 22 meq/ Calcium Gluconate 6.97 meq/ Magnesium Sulfate 14 meq/ Multivitamins 10 ml/Chromium/ Copper/Manganese/ Zinc 1 ml/Amino Acids/Dextrose/ Purified Water 1,309.4892 ml @ 55 mls/hr [id number] IV 05/05/25 22:00 05/06/25 21:59 05/05/25 23:31 55 MLS/HR Enoxaparin Sodium 40 mg Q12HR SC 05/05/25 22:00 05/06/25 11:29 40 MG Acetylcysteine 100 mg Q6HR [facility] 05/06/25 12:00 05/06/25 18:17 100 MG Ipratropium [place] 0.5 mg Q6HR [facility] 05/06/25 12:00 05/06/25 18:17 0.5 MG Levalbuterol HCl 0.625 mg Q6HR [facility] 05/06/25 12:00 05/06/25 18:17 0.625 MG Sodium Acetate 20 meq/Sodium Phosphate 20 meq/ Potassium Acetate 40 meq/Potassium Phosphate 22 meq/ Calcium Gluconate 6.97 meq/ Magnesium Sulfate 16 meq/ Multivitamins 10 ml/Chromium/ Copper/Manganese/ Zinc 1 ml/Amino Acids/Dextrose/ Purified Water 1,369.9892 ml @ 57 mls/hr Q24H3M IV 05/06/25 22:00 05/07/25 21:59 Laboratory Results Laboratory Tests 05/06/25 02:00 Chemistry Test 05/06/25 02:00 Albumin 2.6 g/dL (3.2-4.8) L Calcium Level 7.7 mg/dL (8.7-10.4) L Magnesium Level 1.9 mg/dL (1.6-2.6) Phosphorus Level 2.4 mg/dL (2.4-5.1) Total Protein 4.9 g/dL (5.7-8.2) L LFT Test 05/06/25 02:00 Alanine Aminotransferase (ALT) 33 U/L (7-40) Alkaline Phosphatase 103 U/L (46-116) Aspartate Amino Transferase (AST) 25 U/L (13-40) Total Bilirubin 0.4 mg/dL (0.2-1.0) Urinalysis Test 04/15/25 15:45 Urine Color Light-orange (Yellow) Urine Clarity Ex.turbid (Clear) Urine pH 5.5 (5.0-9.0) Urine Specific [place] 1.028 (1.001-1.035) Urine Protein 1+ (Negative) H Urine Ketones Negative (Negative) Urine Blood 1+ /uL (Negative) H Urine Nitrite Negative (Negative) Urine Bilirubin Negative (Negative) Urine Urobilinogen 3 mg/dL (Negative) H Urine Leukocyte Esterase Negative /uL (Negative) Urine RBC 16 /hpf (0 - 4) Urine Microscopic WBC 1 /HPF (0-5) Urine Squamous Epithelial Cells Mod /hpf (<5) Urine Amorphous Crystals Few /hpf (None Seen) Urine Bacteria Few /hpf (None Seen) H Urine Hyaline Casts Few /lpf (0 - 2) Urine Mucus Few (None Seen) Urine Glucose Normal mg/dL (Normal) Blood Gas Results Test 05/06/25 09:51 Arterial Blood pH 7.475 (7.350-7.450) FiO2 % 30.0 Microbiology Microbiology Date/Time Source Procedure Growth Status 05/02/25 20:30 Sputum Gram Stain - Final Complete 05/02/25 20:30 Sputum Respiratory Culture - Final Complete 05/02/25 00:00 Nose MRSA Screen - Final Complete 04/30/25 14:30 Pleural Fluid Gram Stain - Final Complete 04/30/25 14:30 Pleural Fluid Body Fluid Culture - Final Complete Assessment/Plan Assessment/Plan Impression: Acute hypoxic respiratory failure On mechanical ventilator Atelectasis Lung collapse Pneumonia Hx of nicotine dependence Cachexia, BMI 17.4 Events: Patient seen and examined at bedside. Remains on mechanical ventilator On AC mode; RR 22, VT 450, PEEP 5, FiO2 30% Sedated on Propofol On Fentanyl drip for analgesia ABG reviewed, notable for alkalemia Chest/abdomen x-ray today reveals concern for small bowel obstruction. Plan for possible surgical procedure due to SBO. Follow up Surgery recommendations CPAP pending surgical evaluation. Patient is febrile - on cooling measures. Continue TPN for nutritional support NGT to LIS - monitor output GI recs appreciated Protonix for GI ppx Continue bronchodilators Mucolytics with Mucomyst Chest percussive therapy Continue antibiotics Continue antifungals Incentive spirometry IV fluids with LR HOB elevation Aspiration precautions CPAP pending surgical evaluation. CPAP with PS 8, PEEP 5. S/p bronchoscopy on 04/26/25 with clearance of copious secretions in L1-L10. Endobronchial lesion in left mainstem bronchus, biopsied. Follow up biopsy results. CT chest demonstrated improved aeration of left upper lobe Repeat bronchoscopy was performed on 04/30/25 with removal of mucous plugs in left lower lobe bronchus. Left thoracentesis was performed on 04/30/25 with removal of 250 mL serosanguineous fluid. Pleural fluid cultures showed no growth Labs and imaging reviewed. Rest of plan as noted below. Plan: s/p intubation on mechanical ventilator. On AC mode; RR 22, VT 450, PEEP 5, FiO2 30% Titrate FIO2 to keep O2 saturation above 90%. VAP bundle. Daily ABG and CXR while intubated Sedate for vent synchrony Pressors for hemodynamic support Titrate to keep mean arterial pressure greater than 65 mmHg Plan for surgery due to small bowel obstruction Follow up Surgery recommendations. Continue bronchodilators. Continue antibiotics Incentive spirometry Head of bed elevation Aspiration precautions NGT in place Monitor renal function. Monitor electrolytes. Supplement as necessary. Monitor ins and outs. DVT prophylaxis. Prognosis: Poor given patient's multiple co-morbidities. Condition: Critical Rest of plan per hospitalist and other consultants. A total of 35 minutes of critical care time was spent reviewing the patient record, examining the patient, making a diagnostic and therapeutic plan, discussing this plan with the medical personnel, following up on diagnostic studies and following the patient for clinical stability excluding any and all procedures. At least 50% of this time was spent in direct, [id number] contact. Thank you, JESÚS Ford, for allowing me to participate in this patient's care. Further recommendations will depend on the patient's clinical course. Please do not hesitate to contact me if you have any questions or concerns. This medical document was created using an electronic medical record system with [employer] dictation system. Although these documentations are being carefully reviewed, there may still be some phonetic and typographical changes. The errors are purely typographical, due to imperfection on the software program, and do not reflect any compromise in the patient's medical care. Plan discussed with: Other (KIA Price) My Orders Orders - KARENA WESTFALL MD Procedure Category Date Status Time Chest Portable XY 05/06/25 Resulted 04:00 Cpap Trial For Am ORDERS 05/06/25 Transmitted 07:45 Abg W/ Co-Ox RT 05/06/25 Logged 08:00 Visit Coding Pulmonary Billing Provider: KARENA WESTFALL MD Date of Service if different f: May 06, 2025 Common Visit Codes: [id number] INP/OBS CARE(HIGH), [id number] CARE 30-74 MIN KARENA WESTFALL MD May 06, 2025 18:54
[2025-05-06] MEDS: TPN PER PHARMACY IV NR (22:59)
[2025-05-07] VITALS (104 sets, daily range): BP systolic 102–167; BP diastolic 46–78; PULSE 85–135; RESP 12–27; TEMP 99.1–100.4; O2SAT 91–100
[2025-05-07 04:19] LABS: Hematocrit 30.0 % (36.0-46.0); Hemoglobin 10.0 g/dL (12.2-16.2); Mean Corpuscular Hemoglobin 33.5 pg (28.0-32.0); Mean Corpuscular Volume 100.2 fL (80.0-100.0); Nucleated Red Blood Cells % 0.1 %
[2025-05-07 04:40] LABS: Anion Gap 10 (5-15); BUN/Creatinine Ratio 47.5 (10.0-20.0); Blood Urea Nitrogen 19 mg/dL (9-23); Carbon Dioxide 30 mmol/L (20-31); Chloride 101 mmol/L (98-107); Magnesium 1.8 mg/dL (1.6-2.6); Potassium 3.7 mmol/L (3.5-5.1); Sodium 141 mmol/L (136-145)
[2025-05-07 04:41] LABS: Alanine Aminotransferase 40 U/L (7-40); Albumin 3.0 g/dL (3.2-4.8); Alkaline Phosphatase 133 U/L (46-116); Bilirubin, Total 0.5 mg/dL (0.2-1.0); Calcium 8.0 mg/dL (8.7-10.4); Glucose 119 mg/dL (74-106); Total Protein 5.4 g/dL (5.7-8.2)
--- NOTE | 2025-05-07 05:00 | DVH ---
CHEST RADIOGRAPH Indication: RESPIRATORY FAILURE Technique: Single frontal view of the chest was obtained COMPARISON: XY CHEST PORTABLE on DOS: 05/06/25, XY CHEST PORTABLE on DOS: 05/05/25, XY CHEST XRAY 1 VIEW on DOS: 05/05/25, XY CHEST PORTABLE on DOS: 05/04/25, XY CHEST PORTABLE on DOS: 05/03/25 FINDINGS: Lines and Tubes: Interval advancement of endotracheal tube such that the tip now projects approximately 3.1 cm above the level of the choco. Remaining lines and tubes unchanged. Lungs: Stable small left pleural effusion and basilar pulmonary airspace disease. No pneumothorax. Cardiomediastinal contours: Unremarkable Bones: Unremarkable IMPRESSION: 1. Interval advancement of endotracheal tube such that the tip now projects approximately 3.1 cm above the level of the choco. Remaining lines and tubes unchanged. 2. Stable small left pleural effusion and basilar pulmonary airspace disease.
[2025-05-07 08:52] LABS: Base Excess 1.6 mmol/L (-2.0-3.0)
--- NOTE | 2025-05-07 09:11 | DVHPN2 ---
Subjective Intubated and sedated Reviewed: Care Plan, H&P, Labs, Medications Changes from previous H/P or p: No Changes ( ) General: Per HPI Objective Vitals Vital Signs Date Time Temp Pulse Resp B/P (MAP) Pulse Ox O2 Delivery O2 Flow Rate FiO2 05/07/25 08:15 100.2 102 24 156/55 (88) 98 212.4 05/07/25 08:00 Mechanical Ventilator+ 30 30 Intake/Output Intake and Output 05/07/25 07:00 Intake Total 2721.956 ml Output Total 2850 ml Balance -128.044 ml Intake Oral 0 ml IV Total 2721.956 ml Output Urine Total 2750 ml Stool Total 0 ml Gastric Drainage Total 100 ml General Appearance: Cooperative, mild distress, Other (Underlying dementia. Currently on vent) HEENT: PERRLA, Other Lungs: Other (On vent. Transmitted breath sounds bilaterally. Decreased air entry bilaterally. No wheezing. Bibasilar crackles.) Cardiovascular: Normal S1, Normal S2 Abdomen: No tenderness, No hepatospenomegaly, Other (Hypoactive bowel sounds.) Genitourinary: No Apparent Abnormalities (Grewal catheter) Musculoskeletal: Normal sensory function, Normal motor function Extremities: No edema, Normal pulses, No tenderness/swelling Neuro: Cranial nerves 3-12 NL, Other Skin: Dry, Intact, Wounds, Other (Surgical wound D&I) Psych/Mental Status: Mood NL Medications Current Medications Medications Dose Ordered Sig/Gregory Route Start Time Stop Time Status Last Admin Dose Admin Pantoprazole Sodium 40 mg DAILY IV 04/16/25 10:00 05/06/25 11:29 40 MG Piperacillin Sod/ Tazobactam Sod 100 ml @ 25 mls/hr Q8HR IV 04/16/25 22:00 05/07/25 05:40 25 MLS/HR Amino Acids 0 ml @ 0 mls/hr PER PHARMACY IV 04/18/25 17:45 Sodium Chloride 10 ml QSHIFT@,22 IV 04/21/25 22:00 05/06/25 23:07 10 ML Albuterol 2.5 mg Q3HPRN PRN NEB 04/24/25 16:15 05/01/25 19:21 2.5 MG Nicardipine/ Sodium Chloride 200 ml @ 50 mls/hr Q4H IV 04/25/25 09:45 Diagnostic Test (Pha) 1 strip Q6HR 04/30/25 12:00 05/07/25 05:19 1 STRIP Insulin Human Regular FOLLOW SLIDING SCALE Q6HR SC 04/30/25 12:00 05/07/25 00:29 2 UNITS Dextrose 50 ml UD IV 04/30/25 09:00 05/04/25 17:32 50 ML Lidocaine 1 patch DAILY TOP 04/30/25 10:30 05/02/25 10:58 1 PATCH Morphine Sulfate 1 mg Q6HP PRN IV 04/30/25 10:30 05/02/25 17:58 1 MG Metoprolol Tartrate 2.5 mg Q4HR PRN IV 04/30/25 11:30 05/06/25 09:11 2.5 MG Oxycodone/ Acetaminophen 1 tab Q6HP PRN PO 05/02/25 10:00 Docusate Sodium 100 mg BID PO 05/02/25 10:00 05/02/25 22:00 100 MG Propofol 100 ml @ 1.296 mls/ hr Q24H IV 05/02/25 20:45 05/07/25 05:36 1.296 MLS/HR Fentanyl Citrate 250 ml @ 2.5 mls/hr Q24H IV 05/02/25 20:45 05/07/25 05:30 5 MLS/HR Metoclopramide HCl 10 mg Q8HR IV 05/05/25 14:00 05/07/25 05:39 10 MG Acetylcysteine 100 mg Q4HR NEB 05/05/25 10:00 UNV Dextrose/Sodium Chloride 1,000 ml @ 50 mls/hr Q20H IV 05/05/25 08:45 05/07/25 05:19 50 MLS/HR Enoxaparin Sodium 40 mg Q12HR SC 05/05/25 22:00 05/06/25 23:09 40 MG Acetylcysteine 100 mg Q6HR NEB 05/06/25 12:00 05/07/25 06:23 100 MG Ipratropium [place] 0.5 mg Q6HR NEB 05/06/25 12:00 05/07/25 06:24 0.5 MG Levalbuterol HCl 0.625 mg Q6HR NEB 05/06/25 12:00 05/07/25 06:24 0.625 MG Sodium Acetate 20 meq/Sodium Phosphate 20 meq/ Potassium Acetate 40 meq/Potassium Phosphate 22 meq/ Calcium Gluconate 6.97 meq/ Magnesium Sulfate 16 meq/ Multivitamins 10 ml/Chromium/ Copper/Manganese/ Zinc 1 ml/Amino Acids/Dextrose/ Purified Water 1,369.9892 ml @ 57 mls/hr Q24H3M IV 05/06/25 22:00 05/07/25 21:59 05/06/25 22:59 57 MLS/HR Laboratory Results Laboratory Tests 05/07/25 03:50 Chemistry Test 05/07/25 03:50 Albumin 3.0 g/dL (3.2-4.8) L Calcium Level 8.0 mg/dL (8.7-10.4) L Magnesium Level 1.8 mg/dL (1.6-2.6) Phosphorus Level 2.9 mg/dL (2.4-5.1) Total Protein 5.4 g/dL (5.7-8.2) L LFT Test 05/07/25 03:50 Alanine Aminotransferase (ALT) 40 U/L (7-40) Alkaline Phosphatase 133 U/L (46-116) H Aspartate Amino Transferase (AST) 34 U/L (13-40) Total Bilirubin 0.5 mg/dL (0.2-1.0) Urinalysis Test 04/15/25 15:45 Urine Color Light-orange (Yellow) Urine Clarity Ex.turbid (Clear) Urine pH 5.5 (5.0-9.0) Urine Specific [place] 1.028 (1.001-1.035) Urine Protein 1+ (Negative) H Urine Ketones Negative (Negative) Urine Blood 1+ /uL (Negative) H Urine Nitrite Negative (Negative) Urine Bilirubin Negative (Negative) Urine Urobilinogen 3 mg/dL (Negative) H Urine Leukocyte Esterase Negative /uL (Negative) Urine RBC 16 /hpf (0 - 4) Urine Microscopic WBC 1 /HPF (0-5) Urine Squamous Epithelial Cells Mod /hpf (<5) Urine Amorphous Crystals Few /hpf (None Seen) Urine Bacteria Few /hpf (None Seen) H Urine Hyaline Casts Few /lpf (0 - 2) Urine Mucus Few (None Seen) Urine Glucose Normal mg/dL (Normal) Blood Gas Results Test 05/06/25 09:51 05/07/25 08:25 Arterial Blood pH 7.475 (7.350-7.450) 7.443 (7.350-7.450) FiO2 % 30.0 30.0 Microbiology Microbiology Date/Time Source Procedure Growth Status 05/02/25 20:30 Sputum Gram Stain - Final Complete 05/02/25 20:30 Sputum Respiratory Culture - Final Complete 05/02/25 00:00 Nose MRSA Screen - Final Complete 04/30/25 14:30 Pleural Fluid Gram Stain - Final Complete 04/30/25 14:30 Pleural Fluid Body Fluid Culture - Final Complete Labs and/or images reviewed: Labs reviewed by me, Image(s) reviewed by me Assessment/Plan Assessment/Plan Impression: -choledocholithiasis -acute pancreatitis -small-bowel obstruction -dementia -cachexia -sepsis -COPD -GERD -Post op delirium -Accelerated HTN -A. fib Plan: Events: Patient currently intubated and sedated. CPAP with adequate respiratory status. KUB without any signs of ileus. NG secretions 25 mL overnight. Discussed case with Dr. Clau Cui who is agreeable for CPAP after performing a repeat KUB after having NG tube taken off suction for 5 hours. -IV Reglan 10 mg q.8 hours -add D5 NS, continue TPN -IV diuresis -being weaned sedation, attempt CPAP -Continue Zosyn -PPI -full-dose anticoagulation -continue bronchodilators, Mucomyst -repeat labs and chest x-ray in a.m. Critical care time spent with patient discussing and formulating plan of care: 40 minutes. This does not include time spent performing procedures. This medical document was created using an electronic medical record system with [employer] dictation system. Although this document has been carefully reviewed, there may still be some phonetic and typographical errors. These areas are purely typographical due to imperfections of the software programs, and do not reflect any compromise in the patient's medical care. Plan discussed with: Patient, Other (RN) My Orders Orders - JAYDEN HILL [employer] Procedure Category Date Status Time Acetylcysteine PHA 05/06/25 In Process Inhalation 10% 12:00 Ipratropium Medneb PHA 05/06/25 In Process (Atrovent Medneb) 12:00 Levalbuterol Hcl PHA 05/06/25 In Process (Xopenex Medneb) 12:00 Chest Percussion Tx RT 05/06/25 Logged SUB 09:33 Respiratory Misc. RT 05/06/25 Transmitted Order 16:38 Clamp Ngt ORDERS 05/07/25 Transmitted 07:55 Kub Abdomen Single XY 05/07/25 Logged View 13:00 Date of Service: May 07, 2025 Billing Provider: JAYDEN HILL NP Common Visit Codes: [id number] CARE 30-74 MIN JAYDEN HILL NP May 07, 2025 09:11
--- NOTE | 2025-05-07 14:48 | DVHPN2 ---
Progress Note Date Seen: May 07, 2025 Resident Creating Document: HOLLY DEAN RESIDENT Medical Necessity Reason Pt with a Central, PICC or Fol: Yes The following are medically ne: PICC Line, Grewal Catheter Subjective Review of Systems Patient seen and examined at bedside Sedated and mechanically ventilated H&H stable KUB to be repeated today after clamping the NG tube for 5 hours CPAP possible tomorrow NPO H&H stable and improving Objective vital signs Vital Sign Date Time Temp Pulse Resp B/P (MAP) Pulse Ox O2 Delivery O2 Flow Rate FiO2 05/07/25 14:30 99.3 120 17 128/48 (74) 98 210.7 05/07/25 14:00 30 05/07/25 08:00 Mechanical Ventilator+ Total Intake and Output 05/06/25 05/06/25 05/07/25 15:00 23:00 07:00 Intake Total 1022.50 ml 924.776 ml 774.680 ml Output Total 0 ml 1775 ml 1075 ml Balance 1022.50 ml -850.224 ml -300.320 ml medications Current Medications Medications Dose Ordered Sig/Gregory Route Start Time Stop Time Status Last Admin Dose Admin Pantoprazole Sodium 40 mg DAILY IV 04/16/25 10:00 05/07/25 09:51 40 MG Piperacillin Sod/ Tazobactam Sod 100 ml @ 25 mls/hr Q8HR IV 04/16/25 22:00 05/07/25 13:50 25 MLS/HR Amino Acids 0 ml @ 0 mls/hr PER PHARMACY IV 04/18/25 17:45 Sodium Chloride 10 ml QSHIFT@ IV 04/21/25 22:00 05/07/25 09:51 10 ML Albuterol 2.5 mg Q3HPRN PRN NEB 04/24/25 16:15 05/01/25 19:21 2.5 MG Nicardipine/ Sodium Chloride 200 ml @ 50 mls/hr Q4H IV 04/25/25 09:45 Diagnostic Test (Pha) 1 strip Q6HR 04/30/25 12:00 05/07/25 12:09 1 STRIP Insulin Human Regular FOLLOW SLIDING SCALE Q6HR SC 04/30/25 12:00 05/07/25 12:14 2 UNITS Dextrose 50 ml UD IV 04/30/25 09:00 05/04/25 17:32 50 ML Lidocaine 1 patch DAILY TOP 04/30/25 10:30 05/02/25 10:58 1 PATCH Morphine Sulfate 1 mg Q6HP PRN IV 04/30/25 10:30 05/02/25 17:58 1 MG Metoprolol Tartrate 2.5 mg Q4HR PRN IV 04/30/25 11:30 05/06/25 09:11 2.5 MG Oxycodone/ Acetaminophen 1 tab Q6HP PRN PO 05/02/25 10:00 Docusate Sodium 100 mg BID PO 05/02/25 10:00 05/02/25 22:00 100 MG Propofol 100 ml @ 1.296 mls/ hr Q24H IV 05/02/25 20:45 05/07/25 14:14 1.296 MLS/HR Fentanyl Citrate 250 ml @ 2.5 mls/hr Q24H IV 05/02/25 20:45 05/07/25 05:30 5 MLS/HR Metoclopramide HCl 10 mg Q8HR IV 05/05/25 14:00 05/07/25 13:50 10 MG Acetylcysteine 100 mg Q4HR NEB 05/05/25 10:00 UNV Dextrose/Sodium Chloride 1,000 ml @ 50 mls/hr Q20H IV 05/05/25 08:45 05/07/25 05:19 50 MLS/HR Enoxaparin Sodium 40 mg Q12HR SC 05/05/25 22:00 05/07/25 09:51 40 MG Acetylcysteine 100 mg Q6HR NEB 05/06/25 12:00 05/07/25 12:22 100 MG Ipratropium [place] 0.5 mg Q6HR NEB 05/06/25 12:00 05/07/25 12:22 0.5 MG Levalbuterol HCl 0.625 mg Q6HR NEB 05/06/25 12:00 05/07/25 12:22 0.625 MG Sodium Acetate 20 meq/Sodium Phosphate 20 meq/ Potassium Acetate 40 meq/Potassium Phosphate 22 meq/ Calcium Gluconate 6.97 meq/ Magnesium Sulfate 16 meq/ Multivitamins 10 ml/Chromium/ Copper/Manganese/ Zinc 1 ml/Amino Acids/Dextrose/ Purified Water 1,369.9892 ml @ 57 mls/hr Q24H3M IV 05/06/25 22:00 05/07/25 21:59 05/06/25 22:59 57 MLS/HR Potassium Chloride 60 meq/ Potassium Phosphate 33 meq/ Calcium Gluconate 9.3 meq/Magnesium Sulfate 18 meq/ Multivitamins 10 ml/Chromium/ Copper/Manganese/ Zinc 1 ml/Amino Acids/Dextrose/ Purified Water 1,373 ml @ 57 mls/hr Q24H6M IV 05/07/25 22:00 05/08/25 21:59 Examination Gen - no pallor, no scleral icterus Skin - Patients skin is warm and dry. HEENT - normocephalic, atraumatic, dry mucous membranes. Neck - supple, no lymphadenopathy Pulmonary - improved breath sounds in the left side, right side sounds without any crackles or wheezing cardiovascular - regular S1,S2 heard GI - soft abdomen status post exploratory laparotomy midline incision covered in a sterile dressing. Bowel sounds hypoactive Neurological - Patient is sedated and on mechanical ventilation laboratory and microbiology Laboratory Tests 05/07/25 03:50 Test 05/07/25 03:50 Range/Units Serum Glucose 119 H 74-106 mg/dL Microbiology Date/Time Source Procedure Growth Status 05/02/25 20:30 Sputum Gram Stain - Final Complete 05/02/25 20:30 Sputum Respiratory Culture - Final Complete 05/02/25 00:00 Nose MRSA Screen - Final Complete 04/30/25 14:30 Pleural Fluid Gram Stain - Final Complete 04/30/25 14:30 Pleural Fluid Body Fluid Culture - Final Complete Problem List/Assessment/Plan Problem List/Assessment/Plan Assessment Small-bowel obstruction s/p exploratory laparotomy with a possible transition point Choledocholithiasis Left lung atelectasis likely due to aspiration Status post bronchoscopy Plan - intubated and on mechanical ventilation - NG clamped, KUB to be done later on today - continue on TPN and NPO - diet to be advanced as per primary surgeon PUD prophylaxis with Protonix Plan discussed with Dr. Cui Plan discussed with: Other (KIA Garay) Dietary Evaluation Review Recommendations by RD: PPN/TPN Comments: 1) Increase TPN to meet at least 75% estimated daily needs 2) Advance to cardiac diet when medically feasible 3) Follow-up with gastroenterology and neurology 4) Continue to monitor I&O, labs, and skin integrity Expected Outcomes/Goals: 1) nutrition support to meet at least 75% estimated daily needs 2) labs to improve 3) diet to advance 4) gradual wt gain 5) f/u in 2-3 days HOLLY DEAN RESIDENT May 07, 2025 14:48
--- NOTE | 2025-05-07 15:28 | DVH ---
Date: 05/07/2025 01:41 PM Examination: XY KUB ABDOMEN SINGLE VIEW History: assess for bowel distention after clamping tube for 5 hours Comparison: XY KUB ABDOMEN SINGLE VIEW on DOS: 05/06/25, XY KUB ABDOMEN SINGLE VIEW on DOS: 05/05/25, XY KUB ABDOMEN SINGLE VIEW on DOS: 05/03/25, XY KUB ABDOMEN SINGLE VIEW on DOS: 05/03/25, CT CT AB PEL WO CON-NO ORAL OR IV on DOS: 05/03/25 TECHNIQUE: Frontal views of the abdomen was obtained. FINDINGS: Nasogastric tube tip in the stomach. Moderate left pleural effusion. Grewal catheter in bladder. No acute osseous abnormality identified. IMPRESSION: Nonspecific bowel-gas pattern with paucity of air in the small bowel loops.
--- NOTE | 2025-05-07 19:44 | DVHPN2 ---
Progress Note Date Seen: May 07, 2025 Medical Necessity Reason Pt with a Central, PICC or Fol: Yes The following are medically ne: PICC Line, Grewal Catheter Objective vital signs Vital Sign Date Time Temp Pulse Resp B/P (MAP) Pulse Ox O2 Delivery O2 Flow Rate FiO2 05/07/25 18:15 99.3 94 16 130/58 (82) 97 210.7 05/07/25 18:00 30 05/07/25 08:00 Mechanical Ventilator+ Total Intake and Output 05/06/25 05/06/25 05/07/25 15:00 23:00 07:00 Intake Total 1022.50 ml 924.776 ml 774.680 ml Output Total 0 ml 1775 ml 1075 ml Balance 1022.50 ml -850.224 ml -300.320 ml medications Current Medications Medications Dose Ordered Sig/Gregory Route Start Time Stop Time Status Last Admin Dose Admin Pantoprazole Sodium 40 mg DAILY IV 04/16/25 10:00 05/07/25 09:51 40 MG Piperacillin Sod/ Tazobactam Sod 100 ml @ 25 mls/hr Q8HR IV 04/16/25 22:00 05/07/25 13:50 25 MLS/HR Amino Acids 0 ml @ 0 mls/hr PER PHARMACY IV 04/18/25 17:45 Sodium Chloride 10 ml QSHIFT@10,22 IV 04/21/25 22:00 05/07/25 09:51 10 ML Albuterol 2.5 mg Q3HPRN PRN NEB 04/24/25 16:15 05/01/25 19:21 2.5 MG Nicardipine/ Sodium Chloride 200 ml @ 50 mls/hr Q4H IV 04/25/25 09:45 Diagnostic Test (Pha) 1 strip Q6HR 04/30/25 12:00 05/07/25 18:10 1 STRIP Insulin Human Regular FOLLOW SLIDING SCALE Q6HR SC 04/30/25 12:00 05/07/25 18:10 2 UNITS Dextrose 50 ml UD IV 04/30/25 09:00 05/04/25 17:32 50 ML Lidocaine 1 patch DAILY TOP 04/30/25 10:30 05/02/25 10:58 1 PATCH Morphine Sulfate 1 mg Q6HP PRN IV 04/30/25 10:30 05/02/25 17:58 1 MG Metoprolol Tartrate 2.5 mg Q4HR PRN IV 04/30/25 11:30 05/06/25 09:11 2.5 MG Oxycodone/ Acetaminophen 1 tab Q6HP PRN PO 05/02/25 10:00 Docusate Sodium 100 mg BID PO 05/02/25 10:00 05/02/25 22:00 100 MG Propofol 100 ml @ 1.296 mls/ hr Q24H IV 05/02/25 20:45 05/07/25 14:14 1.296 MLS/HR Fentanyl Citrate 250 ml @ 2.5 mls/hr Q24H IV 05/02/25 20:45 05/07/25 05:30 5 MLS/HR Metoclopramide HCl 10 mg Q8HR IV 05/05/25 14:00 05/07/25 13:50 10 MG Acetylcysteine 100 mg Q4HR NEB 05/05/25 10:00 UNV Dextrose/Sodium Chloride 1,000 ml @ 50 mls/hr Q20H IV 05/05/25 08:45 05/07/25 05:19 50 MLS/HR Acetylcysteine 100 mg Q6HR NEB 05/06/25 12:00 05/07/25 17:45 100 MG Ipratropium [place] 0.5 mg Q6HR NEB 05/06/25 12:00 05/07/25 17:45 0.5 MG Levalbuterol HCl 0.625 mg Q6HR NEB 05/06/25 12:00 05/07/25 17:45 0.625 MG Sodium Acetate 20 meq/Sodium Phosphate 20 meq/ Potassium Acetate 40 meq/Potassium Phosphate 22 meq/ Calcium Gluconate 6.97 meq/ Magnesium Sulfate 16 meq/ Multivitamins 10 ml/Chromium/ Copper/Manganese/ Zinc 1 ml/Amino Acids/Dextrose/ Purified Water 1,369.9892 ml @ 57 mls/hr Q24H3M IV 05/06/25 22:00 05/07/25 21:59 05/06/25 22:59 57 MLS/HR Potassium Chloride 60 meq/ Potassium Phosphate 33 meq/ Calcium Gluconate 9.3 meq/Magnesium Sulfate 18 meq/ Multivitamins 10 ml/Chromium/ Copper/Manganese/ Zinc 1 ml/Amino Acids/Dextrose/ Purified Water 1,373 ml @ 57 mls/hr Q24H6M IV 05/07/25 22:00 05/08/25 21:59 Enoxaparin Sodium 50 mg Q12HR SC 05/07/25 22:00 laboratory and microbiology Laboratory Tests 05/07/25 03:50 Test 05/07/25 03:50 Range/Units Serum Glucose 119 H 74-106 mg/dL Microbiology Date/Time Source Procedure Growth Status 05/02/25 20:30 Sputum Gram Stain - Final Complete 05/02/25 20:30 Sputum Respiratory Culture - Final Complete 05/02/25 00:00 Nose MRSA Screen - Final Complete 04/30/25 14:30 Pleural Fluid Gram Stain - Final Complete 04/30/25 14:30 Pleural Fluid Body Fluid Culture - Final Complete Problem List/Assessment/Plan Problem List/Assessment/Plan AFEBRILE T MAX 100 VSS REMAINS INTUBATED AWAKE AND RESPONSIVE OG IN PLACE 50 CC CLAMPED EARLIER ABD SOFT NON TENDER NO BM WOUND DRESSING DRY KEEP NPO CONTINUE SUPPORTIVE CARE FAMILY AWARE OF PT CONDITION NURSE AT BEDSIDE ONGOING PULM EVAL CT SCAN ABD PELVIS WITH PO CONTRAST Plan discussed with: Other Dietary Evaluation Review Recommendations by RD: PPN/TPN Comments: 1) Increase TPN to meet at least 75% estimated daily needs 2) Advance to cardiac diet when medically feasible 3) Follow-up with gastroenterology and neurology 4) Continue to monitor I&O, labs, and skin integrity Expected Outcomes/Goals: 1) nutrition support to meet at least 75% estimated daily needs 2) labs to improve 3) diet to advance 4) gradual wt gain 5) f/u in 2-3 days GLORIA MCNEAL MD May 07, 2025 19:44
--- NOTE | 2025-05-07 20:01 | DVHPN2 ---
Subjective DOS: 05/07/2025 Patient seen and examined at bedside. Sedated, intubated on mechanical ventilator. Overnight events reviewed. Reviewed: Care Plan, H&P, Labs, Medications Changes from previous H/P or p: No Changes General: Per HPI Objective Vitals Vital Signs Date Time Temp Pulse Resp B/P (MAP) Pulse Ox O2 Delivery O2 Flow Rate FiO2 05/07/25 18:15 99.3 94 16 130/58 (82) 97 210.7 05/07/25 18:00 30 05/07/25 08:00 Mechanical Ventilator+ Intake/Output Intake and Output 05/07/25 07:00 Intake Total 2721.956 ml Output Total 2850 ml Balance -128.044 ml Intake Oral 0 ml IV Total 2721.956 ml Output Urine Total 2750 ml Stool Total 0 ml Gastric Drainage Total 100 ml General Appearance: Cooperative, mild distress, Other (Underlying dementia. Currently on vent) HEENT: PERRLA, Other Lungs: Other (On vent. Transmitted breath sounds bilaterally. Decreased air entry bilaterally. No wheezing. Bibasilar crackles.) Cardiovascular: Normal S1, Normal S2 Abdomen: No tenderness, No hepatospenomegaly, Other (Hypoactive bowel sounds.) Genitourinary: No Apparent Abnormalities (Grewal catheter) Musculoskeletal: Normal sensory function, Normal motor function Extremities: No edema, Normal pulses, No tenderness/swelling Neuro: Cranial nerves 3-12 NL, Other Skin: Dry, Intact, Wounds, Other (Surgical wound D&I) Psych/Mental Status: Mood NL Medications Current Medications Medications Dose Ordered Sig/Gregory Route Start Time Stop Time Status Last Admin Dose Admin Pantoprazole Sodium 40 mg DAILY IV 04/16/25 10:00 05/07/25 09:51 40 MG Piperacillin Sod/ Tazobactam Sod 100 ml @ 25 mls/hr Q8HR IV 04/16/25 22:00 05/07/25 13:50 25 MLS/HR Amino Acids 0 ml @ 0 mls/hr PER PHARMACY IV 04/18/25 17:45 Sodium Chloride 10 ml QSHIFT@10,22 IV 04/21/25 22:00 05/07/25 09:51 10 ML Albuterol 2.5 mg Q3HPRN PRN NEB 04/24/25 16:15 05/01/25 19:21 2.5 MG Nicardipine/ Sodium Chloride 200 ml @ 50 mls/hr Q4H IV 04/25/25 09:45 Diagnostic Test (Pha) 1 strip Q6HR 04/30/25 12:00 05/07/25 18:10 1 STRIP Insulin Human Regular FOLLOW SLIDING SCALE Q6HR SC 04/30/25 12:00 05/07/25 18:10 2 UNITS Dextrose 50 ml UD IV 04/30/25 09:00 05/04/25 17:32 50 ML Lidocaine 1 patch DAILY TOP 04/30/25 10:30 05/02/25 10:58 1 PATCH Morphine Sulfate 1 mg Q6HP PRN IV 04/30/25 10:30 05/02/25 17:58 1 MG Metoprolol Tartrate 2.5 mg Q4HR PRN IV 04/30/25 11:30 05/06/25 09:11 2.5 MG Oxycodone/ Acetaminophen 1 tab Q6HP PRN PO 05/02/25 10:00 Docusate Sodium 100 mg BID PO 05/02/25 10:00 05/02/25 22:00 100 MG Propofol 100 ml @ 1.296 mls/ hr Q24H IV 05/02/25 20:45 05/07/25 14:14 1.296 MLS/HR Fentanyl Citrate 250 ml @ 2.5 mls/hr Q24H IV 05/02/25 20:45 05/07/25 05:30 5 MLS/HR Metoclopramide HCl 10 mg Q8HR IV 05/05/25 14:00 05/07/25 13:50 10 MG Acetylcysteine 100 mg Q4HR NEB 05/05/25 10:00 UNV Dextrose/Sodium Chloride 1,000 ml @ 50 mls/hr Q20H IV 05/05/25 08:45 05/07/25 05:19 50 MLS/HR Acetylcysteine 100 mg Q6HR NEB 05/06/25 12:00 05/07/25 17:45 100 MG Ipratropium [place] 0.5 mg Q6HR NEB 05/06/25 12:00 05/07/25 17:45 0.5 MG Levalbuterol HCl 0.625 mg Q6HR NEB 05/06/25 12:00 05/07/25 17:45 0.625 MG Sodium Acetate 20 meq/Sodium Phosphate 20 meq/ Potassium Acetate 40 meq/Potassium Phosphate 22 meq/ Calcium Gluconate 6.97 meq/ Magnesium Sulfate 16 meq/ Multivitamins 10 ml/Chromium/ Copper/Manganese/ Zinc 1 ml/Amino Acids/Dextrose/ Purified Water 1,369.9892 ml @ 57 mls/hr Q24H3M IV 05/06/25 22:00 05/07/25 21:59 05/06/25 22:59 57 MLS/HR Potassium Chloride 60 meq/ Potassium Phosphate 33 meq/ Calcium Gluconate 9.3 meq/Magnesium Sulfate 18 meq/ Multivitamins 10 ml/Chromium/ Copper/Manganese/ Zinc 1 ml/Amino Acids/Dextrose/ Purified Water 1,373 ml @ 57 mls/hr Q24H6M IV 05/07/25 22:00 05/08/25 21:59 Enoxaparin Sodium 50 mg Q12HR SC 05/07/25 22:00 Laboratory Results Laboratory Tests 05/07/25 03:50 Chemistry Test 05/07/25 03:50 Albumin 3.0 g/dL (3.2-4.8) L Calcium Level 8.0 mg/dL (8.7-10.4) L Magnesium Level 1.8 mg/dL (1.6-2.6) Phosphorus Level 2.9 mg/dL (2.4-5.1) Total Protein 5.4 g/dL (5.7-8.2) L LFT Test 05/07/25 03:50 Alanine Aminotransferase (ALT) 40 U/L (7-40) Alkaline Phosphatase 133 U/L (46-116) H Aspartate Amino Transferase (AST) 34 U/L (13-40) Total Bilirubin 0.5 mg/dL (0.2-1.0) Urinalysis Test 04/15/25 15:45 Urine Color Light-orange (Yellow) Urine Clarity Ex.turbid (Clear) Urine pH 5.5 (5.0-9.0) Urine Specific [place] 1.028 (1.001-1.035) Urine Protein 1+ (Negative) H Urine Ketones Negative (Negative) Urine Blood 1+ /uL (Negative) H Urine Nitrite Negative (Negative) Urine Bilirubin Negative (Negative) Urine Urobilinogen 3 mg/dL (Negative) H Urine Leukocyte Esterase Negative /uL (Negative) Urine RBC 16 /hpf (0 - 4) Urine Microscopic WBC 1 /HPF (0-5) Urine Squamous Epithelial Cells Mod /hpf (<5) Urine Amorphous Crystals Few /hpf (None Seen) Urine Bacteria Few /hpf (None Seen) H Urine Hyaline Casts Few /lpf (0 - 2) Urine Mucus Few (None Seen) Urine Glucose Normal mg/dL (Normal) Blood Gas Results Test 05/07/25 08:25 Arterial Blood pH 7.443 (7.350-7.450) FiO2 % 30.0 Microbiology Microbiology Date/Time Source Procedure Growth Status 05/02/25 20:30 Sputum Gram Stain - Final Complete 05/02/25 20:30 Sputum Respiratory Culture - Final Complete 05/02/25 00:00 Nose MRSA Screen - Final Complete 04/30/25 14:30 Pleural Fluid Gram Stain - Final Complete 04/30/25 14:30 Pleural Fluid Body Fluid Culture - Final Complete Assessment/Plan Assessment/Plan Impression: Acute hypoxic respiratory failure On mechanical ventilator Atelectasis Lung collapse Pneumonia Hx of nicotine dependence Cachexia, BMI 17.4 Small bowel obstruction Events: Patient seen and examined at bedside. Remains on mechanical ventilator On AC mode; RR 22, VT 450, PEEP 5, FiO2 30% Sedated on Propofol On Fentanyl drip for analgesia Tolerating CPAP daily H&H stable, improving Patient remains NPO KUB to be repeated today after clamping the NG tube for 5 hours. Defer to Surgery Follow up Surgery recommendations Awaiting clearance from Surgery for extubation. ABG reviewed, compensated. Chest/abdomen x-ray on 05/06/25 reveals concern for small bowel obstruction. Plan for possible surgical procedure due to SBO. Monitor for fevers - Cooling measures. Continue TPN for nutritional support NGT to LIS - monitor output GI recs appreciated Protonix for GI ppx Continue bronchodilators Mucolytics with Mucomyst Chest percussive therapy Continue antibiotics Continue antifungals Incentive spirometry IV fluids with LR HOB elevation Aspiration precautions S/p bronchoscopy on 04/26/25 with clearance of copious secretions in L1-L10. Endobronchial lesion in left mainstem bronchus, biopsied. Follow up biopsy results. CT chest demonstrated improved aeration of left upper lobe Repeat bronchoscopy was performed on 04/30/25 with removal of mucous plugs in left lower lobe bronchus. Left thoracentesis was performed on 04/30/25 with removal of 250 mL serosanguineous fluid. Pleural fluid cultures showed no growth Labs and imaging reviewed. Rest of plan as noted below. Plan: s/p intubation on mechanical ventilator. On AC mode; RR 22, VT 450, PEEP 5, FiO2 30% Titrate FIO2 to keep O2 saturation above 90%. VAP bundle. Daily ABG and CXR while intubated Sedate for vent synchrony Pressors for hemodynamic support Titrate to keep mean arterial pressure greater than 65 mmHg Plan for surgery due to small bowel obstruction Follow up Surgery recommendations. Continue bronchodilators. Continue antibiotics Incentive spirometry Head of bed elevation Aspiration precautions NGT in place Monitor renal function. Monitor electrolytes. Supplement as necessary. Monitor ins and outs. DVT prophylaxis. Prognosis: Poor given patient's multiple co-morbidities. Condition: Critical Rest of plan per hospitalist and other consultants. A total of 35 minutes of critical care time was spent reviewing the patient record, examining the patient, making a diagnostic and therapeutic plan, discussing this plan with the medical personnel, following up on diagnostic studies and following the patient for clinical stability excluding any and all procedures. At least 50% of this time was spent in direct, [id number] contact. Thank you, JESÚS Ford, for allowing me to participate in this patient's care. Further recommendations will depend on the patient's clinical course. Please do not hesitate to contact me if you have any questions or concerns. This medical document was created using an electronic medical record system with [facility] dictation system. Although these documentations are being carefully reviewed, there may still be some phonetic and typographical changes. The errors are purely typographical, due to imperfection on the software program, and do not reflect any compromise in the patient's medical care. Plan discussed with: Other (KIA Awad) My Orders Orders - KARENA WESTFALL MD Procedure Category Date Status Time Abg W/ Co-Ox RT 05/07/25 Logged 05:26 Abg W/ Co-Ox RT 05/07/25 Logged 06:00 Visit Coding Pulmonary Billing Provider: KARENA WESTFALL MD Date of Service if different f: May 07, 2025 Common Visit Codes: [id number] INP/OBS CARE(HIGH), [id number] CARE 30-74 MIN KARENA WESTFALL MD May 07, 2025 20:01
[2025-05-07] MEDS: ENOXAPARIN SOD 60 MG/0.6 ML SYRINGE SC SCH (22:36)
[2025-05-07] MEDS: TPN PER PHARMACY IV NR (22:39)
[2025-05-08] VITALS (88 sets, daily range): BP systolic 97–161; BP diastolic 37–94; PULSE 77–128; RESP 12–27; TEMP 99–100; O2SAT 88–100
[2025-05-08 03:48] LABS: Hematocrit 27.8 % (36.0-46.0); Hemoglobin 9.4 g/dL (12.2-16.2); Mean Corpuscular Hemoglobin 33.6 pg (28.0-32.0); Mean Corpuscular Volume 99.5 fL (80.0-100.0); Nucleated Red Blood Cells % 0.0 %
[2025-05-08 04:07] LABS: Alanine Aminotransferase 31 U/L (7-40); Alkaline Phosphatase 111 U/L (46-116); Anion Gap 7 (5-15); BUN/Creatinine Ratio 57.1 (10.0-20.0); Blood Urea Nitrogen 20 mg/dL (9-23); Carbon Dioxide 28 mmol/L (20-31); Chloride 104 mmol/L (98-107); Magnesium 1.9 mg/dL (1.6-2.6); Potassium 3.6 mmol/L (3.5-5.1); Sodium 139 mmol/L (136-145)
[2025-05-08 04:08] LABS: Bilirubin, Total 0.4 mg/dL (0.2-1.0)
[2025-05-08 04:21] LABS: Albumin 2.9 g/dL (3.2-4.8); Calcium 8.2 mg/dL (8.7-10.4); Glucose 111 mg/dL (74-106); Total Protein 5.7 g/dL (5.7-8.2)
[2025-05-08 04:27] LABS: INR 0.99 (0.9-1.15); Partial Thromboplastin Time 36.7 SEC (24.5-34.5); Prothrombin Time 10.5 sec (9.3-11.8)
--- NOTE | 2025-05-08 05:33 | DVH ---
CHEST RADIOGRAPH Indication: INTUBATED Technique: Single frontal view of the chest was obtained COMPARISON: XY CHEST PORTABLE on DOS: 05/07/25, XY CHEST PORTABLE on DOS: 05/06/25, XY CHEST PORTABLE on DOS: 05/05/25, XY CHEST XRAY 1 VIEW on DOS: 05/05/25, XY CHEST PORTABLE on DOS: 05/04/25 FINDINGS: Lines and Tubes: Endotracheal tube and enteric catheter in satisfactory position. Right PICC in satisfactory position. Lungs: Increased bilateral lower lobe airspace opacities. Pleura: Small left pleural effusion. No pneumothorax. Cardiomediastinal contours: Unremarkable Bones: Unremarkable IMPRESSION: Increased bilateral lower lobe airspace opacities.
[2025-05-08 07:14] LABS: Base Excess 1.2 mmol/L (-2.0-3.0)
[2025-05-08] MEDS: OMNIPAQUE 12mg/ml 500ml ORAL SOLUTION PO ONE (11:06)
[2025-05-08] MEDS: POTASSIUM PHOSPHATE 26.4 MEQ in SODIUM CHL 0.9% 100 ML IV ONE (11:53)
--- NOTE | 2025-05-08 12:00 | DVHPN2 ---
Progress Note Date Seen: May 08, 2025 Resident Creating Document: HOLLY DEAN RESIDENT Medical Necessity Reason Pt with a Central, PICC or Fol: Yes The following are medically ne: PICC Line, Grewal Catheter Subjective Review of Systems Patient seen and examined at bedside On spontaneous breathing with a pressure support of 8 Increased suctioned in the OG tube greenish in color Patient is currently NPO To undergo CT abdomen pelvis today Objective vital signs Vital Sign Date Time Temp Pulse Resp B/P (MAP) Pulse Ox O2 Delivery O2 Flow Rate FiO2 05/08/25 10:34 115 12 157/69 (98) 97 30 05/08/25 08:00 Mechanical Ventilator+ 05/08/25 06:15 99.7 211.5 Total Intake and Output 05/07/25 05/07/25 05/08/25 15:00 23:00 07:00 Intake Total 1040.6 ml 877.760 ml 869.736 ml Output Total 575 ml 600 ml Balance 1040.6 ml 302.760 ml 269.736 ml medications Current Medications Medications Dose Ordered Sig/Gregory Route Start Time Stop Time Status Last Admin Dose Admin Pantoprazole Sodium 40 mg DAILY IV 04/16/25 10:00 05/08/25 10:08 40 MG Piperacillin Sod/ Tazobactam Sod 100 ml @ 25 mls/hr Q8HR IV 04/16/25 22:00 05/08/25 05:52 25 MLS/HR Amino Acids 0 ml @ 0 mls/hr PER PHARMACY IV 04/18/25 17:45 Sodium Chloride 10 ml QSHIFT@10,22 IV 04/21/25 22:00 05/07/25 22:34 10 ML Albuterol 2.5 mg Q3HPRN PRN NEB 04/24/25 16:15 05/08/25 05:59 2.5 MG Nicardipine/ Sodium Chloride 200 ml @ 50 mls/hr Q4H IV 04/25/25 09:45 Diagnostic Test (Pha) 1 strip Q6HR 04/30/25 12:00 05/08/25 05:52 1 STRIP Insulin Human Regular FOLLOW SLIDING SCALE Q6HR SC 04/30/25 12:00 05/07/25 23:46 2 UNITS Dextrose 50 ml UD IV 04/30/25 09:00 05/04/25 17:32 50 ML Lidocaine 1 patch DAILY TOP 04/30/25 10:30 05/02/25 10:58 1 PATCH Morphine Sulfate 1 mg Q6HP PRN IV 04/30/25 10:30 05/02/25 17:58 1 MG Metoprolol Tartrate 2.5 mg Q4HR PRN IV 04/30/25 11:30 05/06/25 09:11 2.5 MG Oxycodone/ Acetaminophen 1 tab Q6HP PRN PO 05/02/25 10:00 Docusate Sodium 100 mg BID PO 05/02/25 10:00 05/02/25 22:00 100 MG Propofol 100 ml @ 1.296 mls/ hr Q24H IV 05/02/25 20:45 05/08/25 05:41 2.592 MLS/HR Fentanyl Citrate 250 ml @ 2.5 mls/hr Q24H IV 05/02/25 20:45 05/08/25 10:20 2.5 MLS/HR Metoclopramide HCl 10 mg Q8HR IV 05/05/25 14:00 05/08/25 05:46 10 MG Acetylcysteine 100 mg Q4HR NEB 05/05/25 10:00 UNV Dextrose/Sodium Chloride 1,000 ml @ 50 mls/hr Q20H IV 05/05/25 08:45 05/08/25 01:19 50 MLS/HR Acetylcysteine 100 mg Q6HR NEB 05/06/25 12:00 05/08/25 05:59 100 MG Ipratropium [place] 0.5 mg Q6HR NEB 05/06/25 12:00 05/08/25 05:59 0.5 MG Levalbuterol HCl 0.625 mg Q6HR NEB 05/06/25 12:00 05/08/25 00:19 0.625 MG Potassium Chloride 60 meq/ Potassium Phosphate 33 meq/ Calcium Gluconate 9.3 meq/Magnesium Sulfate 18 meq/ Multivitamins 10 ml/Chromium/ Copper/Manganese/ Zinc 1 ml/Amino Acids/Dextrose/ Purified Water 1,373 ml @ 57 mls/hr Q24H6M IV 05/07/25 22:00 05/08/25 21:59 05/07/25 22:39 57 MLS/HR Enoxaparin Sodium 50 mg Q12HR SC 05/07/25 22:00 11/5/25 22:36 50 MG Sodium Chloride 20 meq/Potassium Chloride 40 meq/ Potassium Phosphate 44 meq/ Calcium Gluconate 6.97 meq/ Magnesium Sulfate 24 meq/ Multivitamins 10 ml/Chromium/ Copper/Manganese/ Zinc 1 ml/Amino Acids/Dextrose/ Purified Water 1,216.9892 ml @ 52 mls/hr [id number] IV 05/08/25 22:00 05/09/25 21:59 Examination Gen - no pallor, no scleral icterus Skin - Patients skin is warm and dry. HEENT - normocephalic, atraumatic, dry mucous membranes. Neck - supple, no lymphadenopathy Pulmonary - improved breath sounds in the left side, right side sounds without any crackles or wheezing cardiovascular - regular S1,S2 heard GI - soft abdomen status post exploratory laparotomy midline incision covered in a sterile dressing. Bowel sounds hypoactive Neurological - Patient is sedated and on mechanical ventilation laboratory and microbiology Laboratory Tests 05/08/25 03:00 Test 05/08/25 03:00 Range/Units Serum Glucose 111 H 74-106 mg/dL Microbiology Date/Time Source Procedure Growth Status 05/02/25 20:30 Sputum Gram Stain - Final Complete 05/02/25 20:30 Sputum Respiratory Culture - Final Complete 05/02/25 00:00 Nose MRSA Screen - Final Complete 04/30/25 14:30 Pleural Fluid Gram Stain - Final Complete 04/30/25 14:30 Pleural Fluid Body Fluid Culture - Final Complete Problem List/Assessment/Plan Problem List/Assessment/Plan Assessment Small-bowel obstruction s/p exploratory laparotomy with a possible transition point Choledocholithiasis Left lung atelectasis likely due to aspiration Status post bronchoscopy Plan - intubated and on mechanical ventilation - KUB on 05/07 showed nonspecific bowel gas pattern with a paucity of air in small bowel loops - increased suction in the NG tube, patient to undergo CT abdomen pelvis with oral contrast - continue on TPN and NPO - diet to be advanced as per primary surgeon PUD prophylaxis with Protonix Plan discussed with Dr. Cui Plan discussed with: Other (KIA Goddard) Dietary Evaluation Review Recommendations by RD: PPN/TPN Comments: 1) Increase TPN to meet at least 75% estimated daily needs 2) Advance to cardiac diet when medically feasible 3) Follow-up with gastroenterology and neurology 4) Continue to monitor I&O, labs, and skin integrity Expected Outcomes/Goals: 1) nutrition support to meet at least 75% estimated daily needs 2) labs to improve 3) diet to advance 4) gradual wt gain 5) f/u in 2-3 days HOLLY DEAN RESIDENT May 08, 2025 12:00
--- NOTE | 2025-05-08 12:18 | DVHPN2 ---
Reviewed: Care Plan, H&P, Labs, Medications Changes from previous H/P or p: No Changes General: Per HPI Objective Vitals Vital Signs Date Time Temp Pulse Resp B/P (MAP) Pulse Ox O2 Delivery O2 Flow Rate FiO2 05/08/25 10:34 115 12 157/69 (98) 97 30 05/08/25 08:00 Mechanical Ventilator+ 05/08/25 06:15 99.7 211.5 Intake/Output Intake and Output 05/08/25 07:00 Intake Total 2788.096 ml Output Total 1175 ml Balance 1613.096 ml Intake Oral 0 ml IV Total 2788.096 ml Output Urine Total 1075 ml Gastric Drainage Total 100 ml General Appearance: Cooperative, mild distress, Other (Underlying dementia. Currently on vent) HEENT: PERRLA, Other Lungs: Other (On vent. Transmitted breath sounds bilaterally. Decreased air entry bilaterally. No wheezing. Bibasilar crackles.) Cardiovascular: Normal S1, Normal S2 Abdomen: No tenderness, No hepatospenomegaly, Other (Hypoactive bowel sounds.) Genitourinary: No Apparent Abnormalities (Grewal catheter) Musculoskeletal: Normal sensory function, Normal motor function Extremities: No edema, Normal pulses, No tenderness/swelling Neuro: Cranial nerves 3-12 NL, Other Skin: Dry, Intact, Wounds, Other (Surgical wound D&I) Psych/Mental Status: Mood NL Medications Current Medications Medications Dose Ordered Sig/Gregory Route Start Time Stop Time Status Last Admin Dose Admin Pantoprazole Sodium 40 mg DAILY IV 04/16/25 10:00 05/08/25 10:08 40 MG Piperacillin Sod/ Tazobactam Sod 100 ml @ 25 mls/hr Q8HR IV 04/16/25 22:00 05/08/25 05:52 25 MLS/HR Amino Acids 0 ml @ 0 mls/hr PER PHARMACY IV 04/18/25 17:45 Sodium Chloride 10 ml QSHIFT@10,22 IV 04/21/25 22:00 05/08/25 12:01 10 ML Albuterol 2.5 mg Q3HPRN PRN NEB 04/24/25 16:15 05/08/25 12:13 2.5 MG Nicardipine/ Sodium Chloride 200 ml @ 50 mls/hr Q4H IV 04/25/25 09:45 Diagnostic Test (Pha) 1 strip Q6HR 04/30/25 12:00 05/08/25 05:52 1 STRIP Insulin Human Regular FOLLOW SLIDING SCALE Q6HR SC 04/30/25 12:00 05/07/25 23:46 2 UNITS Dextrose 50 ml UD IV 04/30/25 09:00 05/04/25 17:32 50 ML Lidocaine 1 patch DAILY TOP 04/30/25 10:30 05/02/25 10:58 1 PATCH Morphine Sulfate 1 mg Q6HP PRN IV 04/30/25 10:30 05/02/25 17:58 1 MG Metoprolol Tartrate 2.5 mg Q4HR PRN IV 04/30/25 11:30 05/06/25 09:11 2.5 MG Oxycodone/ Acetaminophen 1 tab Q6HP PRN PO 05/02/25 10:00 Docusate Sodium 100 mg BID PO 05/02/25 10:00 05/02/25 22:00 100 MG Propofol 100 ml @ 1.296 mls/ hr Q24H IV 05/02/25 20:45 05/08/25 05:41 2.592 MLS/HR Fentanyl Citrate 250 ml @ 2.5 mls/hr Q24H IV 05/02/25 20:45 05/08/25 10:20 2.5 MLS/HR Metoclopramide HCl 10 mg Q8HR IV 05/05/25 14:00 05/08/25 05:46 10 MG Acetylcysteine 100 mg Q4HR NEB 05/05/25 10:00 UNV Dextrose/Sodium Chloride 1,000 ml @ 50 mls/hr Q20H IV 05/05/25 08:45 05/08/25 01:19 50 MLS/HR Acetylcysteine 100 mg Q6HR NEB 05/06/25 12:00 05/08/25 12:14 100 MG Ipratropium [place] 0.5 mg Q6HR NEB 05/06/25 12:00 05/08/25 12:13 0.5 MG Levalbuterol HCl 0.625 mg Q6HR NEB 05/06/25 12:00 05/08/25 00:19 0.625 MG Potassium Chloride 60 meq/ Potassium Phosphate 33 meq/ Calcium Gluconate 9.3 meq/Magnesium Sulfate 18 meq/ Multivitamins 10 ml/Chromium/ Copper/Manganese/ Zinc 1 ml/Amino Acids/Dextrose/ Purified Water 1,373 ml @ 57 mls/hr Q24H6M IV 05/07/25 22:00 05/08/25 21:59 05/07/25 22:39 57 MLS/HR Enoxaparin Sodium 50 mg Q12HR SC 05/07/25 22:00 05/07/25 22:36 50 MG Sodium Chloride 20 meq/Potassium Chloride 40 meq/ Potassium Phosphate 44 meq/ Calcium Gluconate 6.97 meq/ Magnesium Sulfate 24 meq/ Multivitamins 10 ml/Chromium/ Copper/Manganese/ Zinc 1 ml/Amino Acids/Dextrose/ Purified Water 1,216.9892 ml @ 52 mls/hr [id number] IV 05/08/25 22:00 05/09/25 21:59 Laboratory Results Laboratory Tests 05/08/25 03:00 Chemistry Test 05/08/25 03:00 Albumin 2.9 g/dL (3.2-4.8) L Calcium Level 8.2 mg/dL (8.7-10.4) L Magnesium Level 1.9 mg/dL (1.6-2.6) Phosphorus Level 2.4 mg/dL (2.4-5.1) Total Protein 5.7 g/dL (5.7-8.2) Coagulation Test 05/08/25 03:00 Prothrombin Time 10.5 sec (9.3-11.8) Prothrombin Time INR 0.99 (0.9-1.15) Activated Partial Thromboplast Time 36.7 SEC (24.5-34.5) H LFT Test 05/08/25 03:00 Alanine Aminotransferase (ALT) 31 U/L (7-40) Alkaline Phosphatase 111 U/L (46-116) Aspartate Amino Transferase (AST) 26 U/L (13-40) Total Bilirubin 0.4 mg/dL (0.2-1.0) Urinalysis Test 04/15/25 15:45 Urine Color Light-orange (Yellow) Urine Clarity Ex.turbid (Clear) Urine pH 5.5 (5.0-9.0) Urine Specific [place] 1.028 (1.001-1.035) Urine Protein 1+ (Negative) H Urine Ketones Negative (Negative) Urine Blood 1+ /uL (Negative) H Urine Nitrite Negative (Negative) Urine Bilirubin Negative (Negative) Urine Urobilinogen 3 mg/dL (Negative) H Urine Leukocyte Esterase Negative /uL (Negative) Urine RBC 16 /hpf (0 - 4) Urine Microscopic WBC 1 /HPF (0-5) Urine Squamous Epithelial Cells Mod /hpf (<5) Urine Amorphous Crystals Few /hpf (None Seen) Urine Bacteria Few /hpf (None Seen) H Urine Hyaline Casts Few /lpf (0 - 2) Urine Mucus Few (None Seen) Urine Glucose Normal mg/dL (Normal) Blood Gas Results Test 05/08/25 06:21 Arterial Blood pH 7.434 (7.350-7.450) FiO2 % 30.0 Microbiology Microbiology Date/Time Source Procedure Growth Status 05/02/25 20:30 Sputum Gram Stain - Final Complete 05/02/25 20:30 Sputum Respiratory Culture - Final Complete 05/02/25 00:00 Nose MRSA Screen - Final Complete 04/30/25 14:30 Pleural Fluid Gram Stain - Final Complete 04/30/25 14:30 Pleural Fluid Body Fluid Culture - Final Complete Labs and/or images reviewed: Labs reviewed by me, Image(s) reviewed by me Assessment/Plan Assessment/Plan 05/07: Patient currently intubated and sedated. CPAP with adequate respiratory status. KUB without any signs of ileus. NG secretions 25 mL overnight. Discussed case with Dr. Clau Cui who is agreeable for CPAP after performing a repeat KUB after having NG tube taken off suction for 5 hours. 05/08: female here with SBO, patient had come to ICU after surgery and then extubated and downgraded to [facility], had to be reintubated due to aspiration pneumonia. Currently has NG tube on intermittent suction, overnight having 150 u bilious output. Surgery today planning for oral contrast CT. Good urine output without Lasix. Feeds is getting TPN. No sedation vacation, RASS-1 to - 2. Daily CPAP trials approximately 5 hours. Vital signs stable. We will continue primary hospitalist plan. Impression: -choledocholithiasis -acute pancreatitis -small-bowel obstruction -dementia -cachexia -sepsis -COPD -GERD -Post op delirium -Accelerated HTN -A. fib Plan: -IV Reglan 10 mg q.8 hours -add D5 NS, continue TPN -IV diuresis -being weaned sedation, attempt CPAP -Continue Zosyn -PPI -full-dose anticoagulation -continue bronchodilators, Mucomyst -repeat labs and chest x-ray in a.m. Critical care time spent with patient discussing and formulating plan of care: 40 minutes. This does not include time spent performing procedures. Plan discussed with: Other Date of Service: May 08, 2025 Billing Provider: LUDIVINA RIOS MD Common Visit Codes: [id number] CARE 30-74 MIN LUDIVINA RIOS MD May 08, 2025 12:18
[2025-05-08] MEDS: METOCLOPRAMIDE HCL 5MG/ml INJ 2ml VIAL IV SCH (14:37)
--- NOTE | 2025-05-08 15:16 | DVHPN2 ---
Progress Note Date Seen: May 08, 2025 Medical Necessity Reason Pt with a Central, PICC or Fol: Yes The following are medically ne: PICC Line, Grewal Catheter Objective vital signs Vital Sign Date Time Temp Pulse Resp B/P (MAP) Pulse Ox O2 Delivery O2 Flow Rate FiO2 05/08/25 14:25 108 20 124/54 (77) 97 30 05/08/25 12:30 99.1 210.4 05/08/25 10:00 Mechanical Ventilator+ Total Intake and Output 05/07/25 05/07/25 05/08/25 15:00 23:00 07:00 Intake Total 1040.6 ml 877.760 ml 869.736 ml Output Total 575 ml 600 ml Balance 1040.6 ml 302.760 ml 269.736 ml medications Current Medications Medications Dose Ordered Sig/Gregory Route Start Time Stop Time Status Last Admin Dose Admin Pantoprazole Sodium 40 mg DAILY IV 04/16/25 10:00 05/08/25 10:08 40 MG Piperacillin Sod/ Tazobactam Sod 100 ml @ 25 mls/hr Q8HR IV 04/16/25 22:00 05/08/25 14:34 25 MLS/HR Amino Acids 0 ml @ 0 mls/hr PER PHARMACY IV 04/18/25 17:45 Sodium Chloride 10 ml QSHIFT@10,22 IV 04/21/25 22:00 05/08/25 12:01 10 ML Albuterol 2.5 mg Q3HPRN PRN NEB 04/24/25 16:15 05/08/25 12:13 2.5 MG Nicardipine/ Sodium Chloride 200 ml @ 50 mls/hr Q4H IV 04/25/25 09:45 Diagnostic Test (Pha) 1 strip Q6HR 04/30/25 12:00 05/08/25 14:29 1 STRIP Insulin Human Regular FOLLOW SLIDING SCALE Q6HR SC 04/30/25 12:00 05/08/25 14:29 2 UNITS Dextrose 50 ml UD IV 04/30/25 09:00 05/04/25 17:32 50 ML Lidocaine 1 patch DAILY TOP 04/30/25 10:30 05/02/25 10:58 1 PATCH Morphine Sulfate 1 mg Q6HP PRN IV 04/30/25 10:30 05/02/25 17:58 1 MG Metoprolol Tartrate 2.5 mg Q4HR PRN IV 04/30/25 11:30 05/06/25 09:11 2.5 MG Oxycodone/ Acetaminophen 1 tab Q6HP PRN PO 05/02/25 10:00 Docusate Sodium 100 mg BID PO 05/02/25 10:00 05/02/25 22:00 100 MG Propofol 100 ml @ 1.296 mls/ hr Q24H IV 05/02/25 20:45 05/08/25 05:41 2.592 MLS/HR Fentanyl Citrate 250 ml @ 2.5 mls/hr Q24H IV 05/02/25 20:45 05/08/25 10:20 2.5 MLS/HR Acetylcysteine 100 mg Q4HR NEB 05/05/25 10:00 UNV Dextrose/Sodium Chloride 1,000 ml @ 50 mls/hr Q20H IV 05/05/25 08:45 05/08/25 01:19 50 MLS/HR Acetylcysteine 100 mg Q6HR NEB 05/06/25 12:00 05/08/25 12:14 100 MG Ipratropium [place] 0.5 mg Q6HR NEB 05/06/25 12:00 05/08/25 12:13 0.5 MG Levalbuterol HCl 0.625 mg Q6HR NEB 05/06/25 12:00 05/08/25 00:19 0.625 MG Potassium Chloride 60 meq/ Potassium Phosphate 33 meq/ Calcium Gluconate 9.3 meq/Magnesium Sulfate 18 meq/ Multivitamins 10 ml/Chromium/ Copper/Manganese/ Zinc 1 ml/Amino Acids/Dextrose/ Purified Water 1,373 ml @ 57 mls/hr Q24H6M IV 05/07/25 22:00 05/08/25 21:59 05/07/25 22:39 57 MLS/HR Enoxaparin Sodium 50 mg Q12HR [place] 05/07/25 22:00 05/07/25 22:36 50 MG Sodium Chloride 20 meq/Potassium Chloride 40 meq/ Potassium Phosphate 44 meq/ Calcium Gluconate 2.3 meq/Magnesium Sulfate 24 meq/ Multivitamins 10 ml/Chromium/ Copper/Manganese/ Zinc 1 ml/Amino Acids/Dextrose/ Purified Water 1,206.9462 ml @ 51 mls/hr [id number] IV 05/08/25 22:00 05/09/25 21:59 Metoclopramide HCl 5 mg Q8HR IV 05/08/25 14:00 05/08/25 14:37 5 MG laboratory and microbiology Laboratory Tests 05/08/25 03:00 Test 05/08/25 03:00 Range/Units Serum Glucose 111 H 74-106 mg/dL Microbiology Date/Time Source Procedure Growth Status 05/02/25 20:30 Sputum Gram Stain - Final Complete 05/02/25 20:30 Sputum Respiratory Culture - Final Complete 05/02/25 00:00 Nose MRSA Screen - Final Complete 04/30/25 14:30 Pleural Fluid Gram Stain - Final Complete 04/30/25 14:30 Pleural Fluid Body Fluid Culture - Final Complete Problem List/Assessment/Plan Problem List/Assessment/Plan AFEBRILE T MAX 99.5 VSS REMAINS INTUBATED AWAKE AND RESPONSIVE OG IN PLACE 150 ABD SOFT NON TENDER NO BM WOUND DRESSING DRY KEEP NPO CONTINUE SUPPORTIVE CARE FAMILY AWARE OF PT CONDITION NURSE AT BEDSIDE ONGOING PULM EVAL CT SCAN ABD PELVIS WITH PO CONTRAST PENDING Plan discussed with: Other My Orders My Orders Orders - GLORIA MCNEAL MD Procedure Category Date Status Time Ct Ab Pel With Oral CT 05/08/25 Logged Con Only 11:07 Dietary Evaluation Review Recommendations by RD: PPN/TPN Comments: 1) Increase TPN to meet at least 75% estimated daily needs 2) Advance to cardiac diet when medically feasible 3) Follow-up with gastroenterology and neurology 4) Continue to monitor I&O, labs, and skin integrity Expected Outcomes/Goals: 1) nutrition support to meet at least 75% estimated daily needs 2) labs to improve 3) diet to advance 4) gradual wt gain 5) f/u in 2-3 days GLORIA MCNEAL MD May 08, 2025 15:16
--- NOTE | 2025-05-08 16:53 | DVH ---
EXAM: CT CT AB PEL WITH ORAL CON ONLY HISTORY: BOWEL GAS PATTERN; NO BM TECHNIQUE: Volumetric multidetector CT images of the abdomen and pelvis were obtained after the administration of intravenous contrast. All CT scans at this facility use dose modulation, iterative reconstruction, and/or weight based dosing when appropriate to reduce radiation dose to as low as reasonably achievable. COMPARISON: CT CT AB PEL WO CON-NO ORAL OR IV on DOS: 05/03/25 FINDINGS: [LOWER CHEST]: Trace right-sided pleural effusion with atelectasis and patchy alveolar and interstitial opacities in the right lung base. Trace left-sided pleural effusion with suspected consolidation of the left lower lobe with air bronchograms. Coronary artery calcifications. [LIVER]: No suspicious liver lesion [GALLBLADDER AND BILIARY TREE]: Surgically absent. [SPLEEN]: Unremarkable. [PANCREAS]: Unremarkable. [ADRENAL GLANDS]: Unremarkable [KIDNEYS]: No hydronephrosis. No nephroureterolithiasis. Benign-appearing cysts of the right kidney. [BLADDER]: Limited evaluation secondary to streak artifact. Grewal catheter in place however possible appearance of bladder distention incompletely characterized. [REPRODUCTIVE ORGANS]: Incomplete characterization secondary to streak artifact [BOWEL/MESENTERY]: Oral contrast in the stomach and extending to the presumably right lower quadrant however areas of and dilation of the areas of anastomosis in the left lower quadrant overall incompletely characterized. Nasogastric tube in place. Limited evaluation for transition point. Correlate for ileus versus bowel obstruction given retention of contrast primarily in the proximal small bowel. [ASCITES]: Absent [LYMPHADENOPATHY]: No pathologically enlarged lymph nodes by CT size criteria [VASCULATURE]: No aneurysmal dilatation. [ABDOMINAL WALL]: [id number] diffuse anasarca [MUSCULOSKELETAL]: No acute fracture or aggressive focal osseous lesion. Multifocal degenerative change of the visualized spine. bilateral hip arthroplasties. Superior endplate compression deformities without evidence of retropulsionof T12, L1,L2 with 50-75 percent superior endplate central height loss. Additional superior endplate height loss of T11 and T9 measuring up to 20 percent. IMPRESSION: 1. Oral contrast in the stomach and extending to the presumably right lower quadrant however areas of dilation near the anastomosis in the left lower quadrant overall incompletely characterized. 2. Correlate for ileus versus bowel obstruction given retention of contrast primarily in the proximal small bowel. 3. Trace bilateral pleural effusions with atelectasis and consolidation of the left lower lobe. 4. Compression deformities, favored to be chronic as detailed above. 5. Left-sided pleural effusion with suspected consolidation of the left lower lobe with air bronchograms.
[2025-05-08] MEDS: TPN PER PHARMACY IV NR (22:08)
--- NOTE | 2025-05-08 22:21 | DVHPN2 ---
Subjective DOS: 05/08/2025 Patient seen and examined at bedside. Sedated, intubated on mechanical ventilator. Overnight events reviewed. Reviewed: Care Plan, H&P, Labs, Medications Changes from previous H/P or p: No Changes General: Per HPI Objective Vitals Vital Signs Date Time Temp Pulse Resp B/P (MAP) Pulse Ox O2 Delivery O2 Flow Rate FiO2 05/08/25 20:23 118 25 118/43 (68) 94 30 05/08/25 19:00 99.9 211.8 05/08/25 18:00 Mechanical Ventilator+ Intake/Output Intake and Output 05/08/25 07:00 Intake Total 2900.280 ml Output Total 1175 ml Balance 1725.280 ml Intake Oral 0 ml IV Total 2900.280 ml Output Urine Total 1075 ml Gastric Drainage Total 100 ml General Appearance: Cooperative, mild distress, Other (Underlying dementia. Currently on vent) HEENT: PERRLA, Other Lungs: Other (On vent. Transmitted breath sounds bilaterally. Decreased air entry bilaterally. No wheezing. Bibasilar crackles.) Cardiovascular: Normal S1, Normal S2 Abdomen: No tenderness, No hepatospenomegaly, Other (Hypoactive bowel sounds.) Genitourinary: No Apparent Abnormalities (Grewal catheter) Musculoskeletal: Normal sensory function, Normal motor function Extremities: No edema, Normal pulses, No tenderness/swelling Neuro: Cranial nerves 3-12 NL, Other Skin: Dry, Intact, Wounds, Other (Surgical wound D&I) Psych/Mental Status: Mood NL Medications Current Medications Medications Dose Ordered Sig/Gregory Route Start Time Stop Time Status Last Admin Dose Admin Pantoprazole Sodium 40 mg DAILY IV 04/16/25 10:00 05/08/25 10:08 40 MG Piperacillin Sod/ Tazobactam Sod 100 ml @ 25 mls/hr Q8HR IV 04/16/25 22:00 05/08/25 14:34 25 MLS/HR Amino Acids 0 ml @ 0 mls/hr PER PHARMACY IV 04/18/25 17:45 Sodium Chloride 10 ml QSHIFT@10,22 IV 04/21/25 22:00 05/08/25 22:03 10 ML Albuterol 2.5 mg Q3HPRN PRN NEB 04/24/25 16:15 05/08/25 12:13 2.5 MG Nicardipine/ Sodium Chloride 200 ml @ 50 mls/hr Q4H IV 04/25/25 09:45 Diagnostic Test (Pha) 1 strip Q6HR 04/30/25 12:00 05/08/25 17:41 1 STRIP Insulin Human Regular FOLLOW SLIDING SCALE Q6HR SC 04/30/25 12:00 05/08/25 14:29 2 UNITS Dextrose 50 ml UD IV 04/30/25 09:00 05/04/25 17:32 50 ML Lidocaine 1 patch DAILY TOP 04/30/25 10:30 05/02/25 10:58 1 PATCH Morphine Sulfate 1 mg Q6HP PRN IV 04/30/25 10:30 05/02/25 17:58 1 MG Metoprolol Tartrate 2.5 mg Q4HR PRN IV 04/30/25 11:30 05/06/25 09:11 2.5 MG Oxycodone/ Acetaminophen 1 tab Q6HP PRN PO 05/02/25 10:00 Docusate Sodium 100 mg BID PO 05/02/25 10:00 05/02/25 22:00 100 MG Propofol 100 ml @ 1.296 mls/ hr Q24H IV 05/02/25 20:45 05/08/25 17:42 5.184 MLS/HR Fentanyl Citrate 250 ml @ 2.5 mls/hr Q24H IV 05/02/25 20:45 05/08/25 10:20 2.5 MLS/HR Acetylcysteine 100 mg Q4HR NEB 05/05/25 10:00 UNV Dextrose/Sodium Chloride 1,000 ml @ 50 mls/hr Q20H IV 05/05/25 08:45 05/08/25 22:03 50 MLS/HR Acetylcysteine 100 mg Q6HR NEB 05/06/25 12:00 05/08/25 18:20 100 MG Ipratropium [place] 0.5 mg Q6HR NEB 05/06/25 12:00 05/08/25 18:20 0.5 MG Levalbuterol HCl 0.625 mg Q6HR NEB 05/06/25 12:00 05/08/25 18:20 0.625 MG Enoxaparin Sodium 50 mg Q12HR SC 05/07/25 22:00 05/07/25 22:36 50 MG Sodium Chloride 20 meq/Potassium Chloride 40 meq/ Potassium Phosphate 44 meq/ Calcium Gluconate 2.3 meq/Magnesium Sulfate 24 meq/ Multivitamins 10 ml/Chromium/ Copper/Manganese/ Zinc 1 ml/Amino Acids/Dextrose/ Purified Water 1,206.9462 ml @ 51 mls/hr [id number] IV 05/08/25 22:00 05/09/25 21:59 Metoclopramide HCl 5 mg Q8HR IV 05/08/25 14:00 05/08/25 14:37 5 MG Laboratory Results Laboratory Tests 05/08/25 03:00 Chemistry Test 05/08/25 03:00 Albumin 2.9 g/dL (3.2-4.8) L Calcium Level 8.2 mg/dL (8.7-10.4) L Magnesium Level 1.9 mg/dL (1.6-2.6) Phosphorus Level 2.4 mg/dL (2.4-5.1) Total Protein 5.7 g/dL (5.7-8.2) Coagulation Test 05/08/25 03:00 Prothrombin Time 10.5 sec (9.3-11.8) Prothrombin Time INR 0.99 (0.9-1.15) Activated Partial Thromboplast Time 36.7 SEC (24.5-34.5) H LFT Test 05/08/25 03:00 Alanine Aminotransferase (ALT) 31 U/L (7-40) Alkaline Phosphatase 111 U/L (46-116) Aspartate Amino Transferase (AST) 26 U/L (13-40) Total Bilirubin 0.4 mg/dL (0.2-1.0) Urinalysis Test 04/15/25 15:45 Urine Color Light-orange (Yellow) Urine Clarity Ex.turbid (Clear) Urine pH 5.5 (5.0-9.0) Urine Specific [place] 1.028 (1.001-1.035) Urine Protein 1+ (Negative) H Urine Ketones Negative (Negative) Urine Blood 1+ /uL (Negative) H Urine Nitrite Negative (Negative) Urine Bilirubin Negative (Negative) Urine Urobilinogen 3 mg/dL (Negative) H Urine Leukocyte Esterase Negative /uL (Negative) Urine RBC 16 /hpf (0 - 4) Urine Microscopic WBC 1 /HPF (0-5) Urine Squamous Epithelial Cells Mod /hpf (<5) Urine Amorphous Crystals Few /hpf (None Seen) Urine Bacteria Few /hpf (None Seen) H Urine Hyaline Casts Few /lpf (0 - 2) Urine Mucus Few (None Seen) Urine Glucose Normal mg/dL (Normal) Blood Gas Results Test 05/08/25 06:21 Arterial Blood pH 7.434 (7.350-7.450) FiO2 % 30.0 Microbiology Microbiology Date/Time Source Procedure Growth Status 05/02/25 20:30 Sputum Gram Stain - Final Complete 05/02/25 20:30 Sputum Respiratory Culture - Final Complete 05/02/25 00:00 Nose MRSA Screen - Final Complete 04/30/25 14:30 Pleural Fluid Gram Stain - Final Complete 04/30/25 14:30 Pleural Fluid Body Fluid Culture - Final Complete Assessment/Plan Assessment/Plan Impression: Acute hypoxic respiratory failure On mechanical ventilator Atelectasis Lung collapse Pneumonia Hx of nicotine dependence Cachexia, BMI 17.4 Small bowel obstruction Events: Patient seen and examined at bedside. Remains on mechanical ventilator On AC mode; RR 22, VT 450, PEEP 5, FiO2 30% Sedated on Propofol On Fentanyl drip for analgesia Patient tolerated CPAP for a few hours CT abdomen/pelvis done, report reviewed: Suspicion for ileus versus bowel obstruction given retention of contrast primarily in the proximal small bowel. Trace bilateral pleural effusions with atelectasis and consolidation of the left lower lobe. Compression deformities, favored to be chronic. Left-sided pleural effusion with suspected consolidation of the left lower lobe with air bronchograms. Hemoglobin trended down to 9.4 g/dL Patient remains NPO KUB to be repeated in AM after clamping the NG tube for 5 hours. Defer to Surgery Surgery recommendations appreciated Patient febrile - cooling measures in place Awaiting clearance from Surgery for extubation. Chest/abdomen x-ray on 05/06/25 reveals concern for small bowel obstruction. Plan for possible surgical procedure due to SBO. Monitor for fevers - Cooling measures. Continue TPN for nutritional support NGT to LIS - monitor output GI recs appreciated Protonix for GI ppx Continue bronchodilators Mucolytics with Mucomyst Chest percussive therapy Continue antibiotics Continue antifungals Incentive spirometry IV fluids with LR HOB elevation Aspiration precautions S/p bronchoscopy on 04/26/25 with clearance of copious secretions in L1-L10. Endobronchial lesion in left mainstem bronchus, biopsied. Follow up biopsy results. CT chest demonstrated improved aeration of left upper lobe Repeat bronchoscopy was performed on 04/30/25 with removal of mucous plugs in left lower lobe bronchus. Left thoracentesis was performed on 04/30/25 with removal of 250 mL serosanguineous fluid. Pleural fluid cultures showed no growth Labs and imaging reviewed. Rest of plan as noted below. Plan: s/p intubation on mechanical ventilator. On AC mode; RR 22, VT 450, PEEP 5, FiO2 30% Titrate FIO2 to keep O2 saturation above 90%. VAP bundle. Daily ABG and CXR while intubated Sedate for vent synchrony Pressors for hemodynamic support Titrate to keep mean arterial pressure greater than 65 mmHg Plan for surgery due to small bowel obstruction Follow up Surgery recommendations. Continue bronchodilators. Continue antibiotics Incentive spirometry Head of bed elevation Aspiration precautions NGT in place Monitor renal function. Monitor electrolytes. Supplement as necessary. Monitor ins and outs. DVT prophylaxis. Prognosis: Poor given patient's multiple co-morbidities. Condition: Critical Rest of plan per hospitalist and other consultants. A total of 35 minutes of critical care time was spent reviewing the patient record, examining the patient, making a diagnostic and therapeutic plan, discussing this plan with the medical personnel, following up on diagnostic studies and following the patient for clinical stability excluding any and all procedures. At least 50% of this time was spent in direct, [id number] contact. Thank you, JESÚS Ford, for allowing me to participate in this patient's care. Further recommendations will depend on the patient's clinical course. Please do not hesitate to contact me if you have any questions or concerns. This medical document was created using an electronic medical record system with [employer] dictation system. Although these documentations are being carefully reviewed, there may still be some phonetic and typographical changes. The errors are purely typographical, due to imperfection on the software program, and do not reflect any compromise in the patient's medical care. Plan discussed with: Other (KIA Goddard) My Orders Orders - KARENA WESTFALL MD Procedure Category Date Status Time Chest Portable XY 05/08/25 Resulted 05:19 Cpap Trial For Am ORDERS 05/08/25 Transmitted 08:08 Visit Coding Pulmonary Billing Provider: KARENA WESTFALL MD Date of Service if different f: May 08, 2025 Common Visit Codes: [id number] INP/OBS CARE(HIGH), [id number] CARE 30-74 MIN KARENA WESTFALL MD May 08, 2025 22:21
[2025-05-09] VITALS (107 sets, daily range): BP systolic 76–188; BP diastolic 35–90; PULSE 72–183; RESP 16–39; TEMP 98.3–100.8; O2SAT 95–100
[2025-05-09 04:13] LABS: Alanine Aminotransferase 33 U/L (7-40); Alkaline Phosphatase 108 U/L (46-116); Anion Gap 9 (5-15); BUN/Creatinine Ratio 52.9 (10.0-20.0); Blood Urea Nitrogen 18 mg/dL (9-23); Carbon Dioxide 25 mmol/L (20-31); Chloride 105 mmol/L (98-107); Glucose 81 mg/dL (74-106); Magnesium 1.9 mg/dL (1.6-2.6); Potassium 4.2 mmol/L (3.5-5.1); Sodium 139 mmol/L (136-145)
[2025-05-09 04:14] LABS: Albumin 2.9 g/dL (3.2-4.8); Bilirubin, Total 0.4 mg/dL (0.2-1.0); Calcium 7.9 mg/dL (8.7-10.4); Total Protein 5.6 g/dL (5.7-8.2)
--- NOTE | 2025-05-09 09:09 | DVH ---
Date: 05/09/2025 08:01 AM Examination: XY KUB ABDOMEN SINGLE VIEW History: NO BOWEL MOVEMENT Comparison: CT CT AB PEL WITH ORAL CON ONLY on DOS: 05/08/25, XY KUB ABDOMEN SINGLE VIEW on DOS: 05/07/25, XY KUB ABDOMEN SINGLE VIEW on DOS: 05/06/25, XY KUB ABDOMEN SINGLE VIEW on DOS: 05/05/25, XY KUB ABDOMEN SINGLE VIEW on DOS: 05/03/25 TECHNIQUE: Frontal views of the abdomen was obtained. FINDINGS: Large stool burden. Nasogastric tube is unchanged. Grewal catheter in the bladder. IMPRESSION: Nonspecific bowel-gas pattern.
[2025-05-09 09:59] LABS: Base Excess -1.5 mmol/L (-2.0-3.0)
[2025-05-09] MEDS ORDERED: ACETAMINOPHEN 650 MG RECT SUPP PR PRN (10:30)
[2025-05-09] MEDS ORDERED: VANCOMYCIN PER PHARMACY 0 MG IV SCH (10:30)
[2025-05-09] MEDS: DEXMEDETOMIDINE HCL IN D5W 100 ML IV ONE (11:00)
[2025-05-09] MEDS: DEXMEDETOMIDINE HCL IN D5W 100 ML IV SCH (11:26)
[2025-05-09] MEDS: VANCOMYCIN 750MG KIT 100 ML IV ONE (11:34)
--- NOTE | 2025-05-09 12:37 | DVHPN2 ---
Reviewed: Care Plan, H&P, Labs, Medications Changes from previous H/P or p: No Changes General: Per HPI Objective Vitals Vital Signs Date Time Temp Pulse Resp B/P (MAP) Pulse Ox O2 Delivery O2 Flow Rate FiO2 05/09/25 11:50 121/35 05/09/25 10:24 103 20 100 30 05/09/25 10:00 Mechanical Ventilator+ 05/09/25 07:00 100.0 212.0 05/08/25 23:16 3.0 Intake/Output Intake and Output 05/09/25 07:00 Intake Total 2862.1203 ml Output Total 2150 ml Balance 712.1203 ml IV Total 2862.1203 ml Output Urine Total 1950 ml Gastric Drainage Total 200 ml General Appearance: Cooperative, mild distress, Other (Underlying dementia. Currently on vent) HEENT: PERRLA, Other Lungs: Other (On vent. Transmitted breath sounds bilaterally. Decreased air entry bilaterally. No wheezing. Bibasilar crackles.) Cardiovascular: Normal S1, Normal S2 Abdomen: No tenderness, No hepatospenomegaly, Other (Hypoactive bowel sounds.) Genitourinary: No Apparent Abnormalities (Grewal catheter) Musculoskeletal: Normal sensory function, Normal motor function Extremities: No edema, Normal pulses, No tenderness/swelling Neuro: Cranial nerves 3-12 NL, Other Skin: Dry, Intact, Wounds, Other (Surgical wound D&I) Psych/Mental Status: Mood NL Medications Current Medications Medications Dose Ordered Sig/Gregory Route Start Time Stop Time Status Last Admin Dose Admin Pantoprazole Sodium 40 mg DAILY IV 04/16/25 10:00 05/09/25 10:43 40 MG Amino Acids 0 ml @ 0 mls/hr PER PHARMACY IV 04/18/25 17:45 Sodium Chloride 10 ml QSHIFT@10,22 IV 04/21/25 22:00 05/09/25 11:01 10 ML Albuterol 2.5 mg Q3HPRN PRN NEB 04/24/25 16:15 05/08/25 12:13 2.5 MG Nicardipine/ Sodium Chloride 200 ml @ 50 mls/hr Q4H IV 04/25/25 09:45 Diagnostic Test (Pha) 1 strip Q6HR 04/30/25 12:00 05/09/25 11:43 1 STRIP Insulin Human Regular FOLLOW SLIDING SCALE Q6HR SC 04/30/25 12:00 05/08/25 14:29 2 UNITS Dextrose 50 ml UD IV 04/30/25 09:00 05/09/25 00:20 50 ML Lidocaine 1 patch DAILY TOP 04/30/25 10:30 05/09/25 10:45 1 PATCH Morphine Sulfate 1 mg Q6HP PRN IV 04/30/25 10:30 05/02/25 17:58 1 MG Metoprolol Tartrate 2.5 mg Q4HR PRN IV 04/30/25 11:30 05/06/25 09:11 2.5 MG Oxycodone/ Acetaminophen 1 tab Q6HP PRN PO 05/02/25 10:00 Docusate Sodium 100 mg BID PO 05/02/25 10:00 05/02/25 22:00 100 MG Propofol 100 ml @ 1.296 mls/ hr Q24H IV 05/02/25 20:45 05/09/25 05:09 5.184 MLS/HR Fentanyl Citrate 250 ml @ 2.5 mls/hr Q24H IV 05/02/25 20:45 05/09/25 11:00 2.5 MLS/HR Acetylcysteine 100 mg Q4HR [facility] 05/05/25 10:00 UNV Dextrose/Sodium Chloride 1,000 ml @ 50 mls/hr Q20H IV 05/05/25 08:45 05/08/25 22:03 50 MLS/HR Acetylcysteine 100 mg Q6HR [facility] 05/06/25 12:00 05/09/25 07:26 100 MG Ipratropium [place] 0.5 mg Q6HR [facility] 05/06/25 12:00 05/09/25 07:26 0.5 MG Levalbuterol HCl 0.625 mg Q6HR [facility] 05/06/25 12:00 05/09/25 07:26 0.625 MG Enoxaparin Sodium 50 mg Q12HR [place] 05/07/25 22:00 05/09/25 10:44 50 MG Sodium Chloride 20 meq/Potassium Chloride 40 meq/ Potassium Phosphate 44 meq/ Calcium Gluconate 2.3 meq/Magnesium Sulfate 24 meq/ Multivitamins 10 ml/Chromium/ Copper/Manganese/ Zinc 1 ml/Amino Acids/Dextrose/ Purified Water 1,206.9462 ml @ 51 mls/hr [id number] IV 05/08/25 22:00 05/09/25 21:59 05/08/25 22:08 51 MLS/HR Metoclopramide HCl 5 mg Q8HR IV 05/08/25 14:00 05/09/25 05:04 5 MG Vancomycin HCl 0 ml @ 0 mls/hr PER PHARMACY IV 05/09/25 10:30 UNV Acetaminophen 650 mg Q6HP PRN [place] 05/09/25 10:30 Meropenem 50 ml @ 17 mls/hr Q12HR IV 05/09/25 14:00 Sodium Phosphate 10 meq/Potassium Acetate 40 meq/ Potassium Phosphate 44 meq/ Magnesium Sulfate 26 meq/ Multivitamins 10 ml/Chromium/ Copper/Manganese/ Zinc 1 ml/Amino Acids/Dextrose/ Purified Water 1,200 ml @ 50 mls/hr Q24H IV 05/09/25 22:00 05/10/25 21:59 Laboratory Results Laboratory Tests 05/08/25 03:00 05/09/25 03:10 Chemistry Test 05/09/25 03:10 Albumin 2.9 g/dL (3.2-4.8) L Calcium Level 7.9 mg/dL (8.7-10.4) L Magnesium Level 1.9 mg/dL (1.6-2.6) Phosphorus Level 2.7 mg/dL (2.4-5.1) Total Protein 5.6 g/dL (5.7-8.2) L LFT Test 05/09/25 03:10 Alanine Aminotransferase (ALT) 33 U/L (7-40) Alkaline Phosphatase 108 U/L (46-116) Aspartate Amino Transferase (AST) 31 U/L (13-40) Total Bilirubin 0.4 mg/dL (0.2-1.0) Urinalysis Test 04/15/25 15:45 Urine Color Light-orange (Yellow) Urine Clarity Ex.turbid (Clear) Urine pH 5.5 (5.0-9.0) Urine Specific [place] 1.028 (1.001-1.035) Urine Protein 1+ (Negative) H Urine Ketones Negative (Negative) Urine Blood 1+ /uL (Negative) H Urine Nitrite Negative (Negative) Urine Bilirubin Negative (Negative) Urine Urobilinogen 3 mg/dL (Negative) H Urine Leukocyte Esterase Negative /uL (Negative) Urine RBC 16 /hpf (0 - 4) Urine Microscopic WBC 1 /HPF (0-5) Urine Squamous Epithelial Cells Mod /hpf (<5) Urine Amorphous Crystals Few /hpf (None Seen) Urine Bacteria Few /hpf (None Seen) H Urine Hyaline Casts Few /lpf (0 - 2) Urine Mucus Few (None Seen) Urine Glucose Normal mg/dL (Normal) Blood Gas Results Test 05/09/25 08:01 Arterial Blood pH 7.401 (7.350-7.450) FiO2 % 30.0 Microbiology Microbiology Date/Time Source Procedure Growth Status 05/02/25 20:30 Sputum Gram Stain - Final Complete 05/02/25 20:30 Sputum Respiratory Culture - Final Complete 05/02/25 00:00 Nose MRSA Screen - Final Complete 04/30/25 14:30 Pleural Fluid Gram Stain - Final Complete 04/30/25 14:30 Pleural Fluid Body Fluid Culture - Final Complete Labs and/or images reviewed: Labs reviewed by me, Image(s) reviewed by me Assessment/Plan Assessment/Plan 05/07: Patient currently intubated and sedated. CPAP with adequate respiratory status. KUB without any signs of ileus. NG secretions 25 mL overnight. Discussed case with Dr. Clau Cui who is agreeable for CPAP after performing a repeat KUB after having NG tube taken off suction for 5 hours. 05/08: female here with SBO, patient had come to ICU after surgery and then extubated and downgraded to [facility], had to be reintubated due to aspiration pneumonia. Currently has NG tube on intermittent suction, overnight having 150 u bilious output. Surgery today planning for oral contrast CT. Good urine output without Lasix. Feeds is getting TPN. No sedation vacation, RASS-1 to - 2. Daily CPAP trials approximately 5 hours. Vital signs stable. We will continue primary hospitalist plan. 05/09: Pulmonology continuing with CPAP trials. Patient continues to have fevers. Still having output in NG tube. We will collect blood cultures again with fevers. And escalate antibiotic therapy from Zosyn to vancomycin and meropenem. Impression: -choledocholithiasis -acute pancreatitis -small-bowel obstruction -dementia -cachexia -sepsis -COPD -GERD -Post op delirium -Accelerated HTN -A. fib Plan: -IV Reglan 10 mg q.8 hours -add D5 NS, continue TPN -IV diuresis -being weaned sedation, attempt CPAP -Continue Zosyn -PPI -full-dose anticoagulation -continue bronchodilators, Mucomyst -repeat labs and chest x-ray in a.m. Critical care time spent with patient discussing and formulating plan of care: 40 minutes. This does not include time spent performing procedures. Plan discussed with: Other My Orders Orders - LUDIVINA RIOS MD Procedure Category Date Status Time Vancomycin Per PHA 05/09/25 Pending Pharmacy 10:30 Acetaminophen PHA 05/09/25 In Process Suppository (Tylenol 10:30 Blood Culture JANESSA 05/09/25 In Process 10:16 Meropenem 1gm Ivpb PHA 05/09/25 In Process (Merrem 1gm/50ml) 14:00 Communication Order ORDERS 05/09/25 Transmitted 10:43 Date of Service: May 09, 2025 Billing Provider: LUDIVINA RIOS MD Common Visit Codes: [id number] CARE 30-74 MIN LUDIVINA ROIS MD May 09, 2025 12:36
[2025-05-09] MEDS: MEROPENEM 1GM IVPB 50 ML IV SCH (14:48)
[2025-05-09] MEDS: FLEET ENEMA(ADULT) 135 ML PR ONE (14:48)
--- NOTE | 2025-05-09 17:12 | DVHPN2 ---
Progress Note Date Seen: May 09, 2025 Resident Creating Document: HOLLY DEAN RESIDENT Medical Necessity Reason Pt with a Central, PICC or Fol: Yes The following are medically ne: PICC Line, Grewal Catheter Subjective Review of Systems Patient seen and examined at bedside Sedated and mechanically ventilated High residual volumes about 800 mL suctioned in the morning CT abdomen pelvis with oral contrast shows possible obstruction/ileus Objective vital signs Vital Sign Date Time Temp Pulse Resp B/P (MAP) Pulse Ox O2 Delivery O2 Flow Rate FiO2 05/09/25 16:53 184/72 05/09/25 16:25 127 39 98 30 05/09/25 12:00 Mechanical Ventilator+ 05/09/25 07:00 100.0 212.0 05/08/25 23:16 3.0 Total Intake and Output 05/08/25 05/08/25 05/09/25 15:00 23:00 07:00 Intake Total 922.4723 ml 991.472 ml 948.176 ml Output Total 1200 ml 950 ml Balance 922.4723 ml -208.528 ml -1.824 ml medications Current Medications Medications Dose Ordered Sig/Gregory Route Start Time Stop Time Status Last Admin Dose Admin Pantoprazole Sodium 40 mg DAILY IV 04/16/25 10:00 05/09/25 10:43 40 MG Amino Acids 0 ml @ 0 mls/hr PER PHARMACY IV 04/18/25 17:45 Sodium Chloride 10 ml QSHIFT@10,22 IV 04/21/25 22:00 05/09/25 11:01 10 ML Albuterol 2.5 mg Q3HPRN PRN NEB 04/24/25 16:15 05/08/25 12:13 2.5 MG Nicardipine/ Sodium Chloride 200 ml @ 50 mls/hr Q4H IV 04/25/25 09:45 Diagnostic Test (Pha) 1 strip Q6HR 04/30/25 12:00 05/09/25 11:43 1 STRIP Insulin Human Regular FOLLOW SLIDING SCALE Q6HR SC 04/30/25 12:00 05/08/25 14:29 2 UNITS Dextrose 50 ml UD IV 04/30/25 09:00 05/09/25 00:20 50 ML Lidocaine 1 patch DAILY TOP 04/30/25 10:30 05/09/25 10:45 1 PATCH Morphine Sulfate 1 mg Q6HP PRN IV 04/30/25 10:30 05/02/25 17:58 1 MG Metoprolol Tartrate 2.5 mg Q4HR PRN IV 04/30/25 11:30 05/06/25 09:11 2.5 MG Oxycodone/ Acetaminophen 1 tab Q6HP PRN PO 05/02/25 10:00 Docusate Sodium 100 mg BID PO 05/02/25 10:00 05/02/25 22:00 100 MG Propofol 100 ml @ 1.296 mls/ hr Q24H IV 05/02/25 20:45 05/09/25 05:09 5.184 MLS/HR Fentanyl Citrate 250 ml @ 2.5 mls/hr Q24H IV 05/02/25 20:45 05/09/25 11:00 2.5 MLS/HR Acetylcysteine 100 mg Q4HR NEB 05/05/25 10:00 UNV Dextrose/Sodium Chloride 1,000 ml @ 50 mls/hr Q20H IV 05/05/25 08:45 05/08/25 22:03 50 MLS/HR Acetylcysteine 100 mg Q6HR NEB 05/06/25 12:00 05/09/25 12:58 100 MG Ipratropium [place] 0.5 mg Q6HR NEB 05/06/25 12:00 05/09/25 12:58 0.5 MG Levalbuterol HCl 0.625 mg Q6HR NEB 05/06/25 12:00 05/09/25 12:58 0.625 MG Enoxaparin Sodium 50 mg Q12HR [place] 05/07/25 22:00 05/09/25 10:44 50 MG Sodium Chloride 20 meq/Potassium Chloride 40 meq/ Potassium Phosphate 44 meq/ Calcium Gluconate 2.3 meq/Magnesium Sulfate 24 meq/ Multivitamins 10 ml/Chromium/ Copper/Manganese/ Zinc 1 ml/Amino Acids/Dextrose/ Purified Water 1,206.9462 ml @ 51 mls/hr [id number] IV 05/08/25 22:00 05/09/25 21:59 05/08/25 22:08 51 MLS/HR Metoclopramide HCl 5 mg Q8HR IV 05/08/25 14:00 05/09/25 14:48 5 MG Vancomycin HCl 0 ml @ 0 mls/hr PER PHARMACY IV 05/09/25 10:30 UNV Acetaminophen 650 mg Q6HP PRN [place] 05/09/25 10:30 Meropenem 50 ml @ 17 mls/hr Q12HR IV 05/09/25 14:00 05/09/25 14:48 17 MLS/HR Potassium Acetate 40 meq/Potassium Phosphate 48.4 meq/Magnesium Sulfate 26 meq/ Multivitamins 10 ml/Chromium/ Copper/Manganese/ Zinc 1 ml/Calcium Gluconate 2.3 meq/ Amino Acids/ Dextrose/Purified Water 1,203.4462 ml @ 50 mls/hr Q24H5M IV 05/09/25 22:00 05/10/25 21:59 Examination Gen - no pallor, no scleral icterus Skin - Patients skin is warm and dry. HEENT - normocephalic, atraumatic, dry mucous membranes. Neck - supple, no lymphadenopathy Pulmonary - improved breath sounds in the left side, right side sounds without any crackles or wheezing cardiovascular - regular S1,S2 heard GI - soft abdomen status post exploratory laparotomy midline incision covered in a sterile dressing. Bowel sounds hypoactive Neurological - Patient is sedated and on mechanical ventilation laboratory and microbiology Laboratory Tests 05/09/25 03:10 05/08/25 03:00 Test 05/09/25 03:10 Range/Units Serum Glucose 81 74-106 mg/dL Microbiology Date/Time Source Procedure Growth Status 05/02/25 20:30 Sputum Gram Stain - Final Complete 05/02/25 20:30 Sputum Respiratory Culture - Final Complete 05/02/25 00:00 Nose MRSA Screen - Final Complete 04/30/25 14:30 Pleural Fluid Gram Stain - Final Complete 04/30/25 14:30 Pleural Fluid Body Fluid Culture - Final Complete Problem List/Assessment/Plan Problem List/Assessment/Plan Assessment Small-bowel obstruction s/p exploratory laparotomy with a possible transition point Choledocholithiasis Left lung atelectasis likely due to aspiration Status post bronchoscopy Plan - intubated and on mechanical ventilation - KUB on 05/07 showed nonspecific bowel gas pattern with a paucity of air in small bowel loops - CT abdomen pelvis with IV contrast done on 05/08 shows possible ileus versus bowel obstruction - increased suction in the NG tube - continue on TPN and NPO - diet to be advanced as per primary surgeon PUD prophylaxis with Protonix Plan discussed with Dr. Cui Plan discussed with: Other (KIA Delong) Dietary Evaluation Review Recommendations by RD: PPN/TPN Comments: 1) Increase TPN to meet at least 75% estimated daily needs 2) Advance to cardiac diet when medically feasible 3) Follow-up with gastroenterology and neurology 4) Continue to monitor I&O, labs, and skin integrity Expected Outcomes/Goals: 1) nutrition support to meet at least 75% estimated daily needs 2) labs to improve 3) diet to advance 4) gradual wt gain 5) f/u in 2-3 days HOLLY DEAN RESIDENT May 09, 2025 17:12
[2025-05-09] MEDS ORDERED: VANCOMYCIN 1GM/250ML KIT 250 ML IV SCH (18:00)
[2025-05-09] MEDS ORDERED: VANCOMYCIN 1.25GM/250ML 250 ML IV SCH (18:00)
[2025-05-09] MEDS: TPN PER PHARMACY IV NR (22:14)
--- NOTE | 2025-05-09 23:58 | DVHPN2 ---
Subjective DOS: 05/09/2025 Patient seen and examined at bedside. Sedated, intubated on mechanical ventilator. Overnight events reviewed. Reviewed: Care Plan, H&P, Labs, Medications Changes from previous H/P or p: No Changes General: Per HPI Objective Vitals Vital Signs Date Time Temp Pulse Resp B/P (MAP) Pulse Ox O2 Delivery O2 Flow Rate FiO2 05/09/25 23:00 77 22 102/44 (63) 100 30 05/09/25 17:55 Mechanical Ventilator+ 05/09/25 16:00 98.3 98.3 05/08/25 23:16 3.0 Intake/Output Intake and Output 05/09/25 07:00 Intake Total 2862.1203 ml Output Total 2150 ml Balance 712.1203 ml IV Total 2862.1203 ml Output Urine Total 1950 ml Gastric Drainage Total 200 ml General Appearance: Cooperative, mild distress, Other (Underlying dementia. Currently on vent) HEENT: PERRLA, Other Lungs: Other (On vent. Transmitted breath sounds bilaterally. Decreased air entry bilaterally. No wheezing. Bibasilar crackles.) Cardiovascular: Normal S1, Normal S2 Abdomen: No tenderness, No hepatospenomegaly, Other (Hypoactive bowel sounds.) Genitourinary: No Apparent Abnormalities (Grewal catheter) Musculoskeletal: Normal sensory function, Normal motor function Extremities: No edema, Normal pulses, No tenderness/swelling Neuro: Cranial nerves 3-12 NL, Other Skin: Dry, Intact, Wounds, Other (Surgical wound D&I) Psych/Mental Status: Mood NL Medications Current Medications Medications Dose Ordered Sig/Gregory Route Start Time Stop Time Status Last Admin Dose Admin Pantoprazole Sodium 40 mg DAILY IV 04/16/25 10:00 05/09/25 10:43 40 MG Amino Acids 0 ml @ 0 mls/hr PER PHARMACY IV 04/18/25 17:45 Sodium Chloride 10 ml QSHIFT@10,22 IV 04/21/25 22:00 05/09/25 22:03 10 ML Albuterol 2.5 mg Q3HPRN PRN NEB 04/24/25 16:15 05/08/25 12:13 2.5 MG Nicardipine/ Sodium Chloride 200 ml @ 50 mls/hr Q4H IV 04/25/25 09:45 Diagnostic Test (Pha) 1 strip Q6HR 04/30/25 12:00 05/09/25 17:36 1 STRIP Insulin Human Regular FOLLOW SLIDING SCALE Q6HR SC 04/30/25 12:00 05/08/25 14:29 2 UNITS Dextrose 50 ml UD IV 04/30/25 09:00 05/09/25 00:20 50 ML Lidocaine 1 patch DAILY TOP 04/30/25 10:30 05/09/25 10:45 1 PATCH Morphine Sulfate 1 mg Q6HP PRN IV 04/30/25 10:30 05/02/25 17:58 1 MG Metoprolol Tartrate 2.5 mg Q4HR PRN IV 04/30/25 11:30 05/06/25 09:11 2.5 MG Oxycodone/ Acetaminophen 1 tab Q6HP PRN PO 05/02/25 10:00 Docusate Sodium 100 mg BID PO 05/02/25 10:00 05/02/25 22:00 100 MG Propofol 100 ml @ 1.296 mls/ hr Q24H IV 05/02/25 20:45 05/09/25 18:46 7.776 MLS/HR Fentanyl Citrate 250 ml @ 2.5 mls/hr Q24H IV 05/02/25 20:45 05/09/25 11:00 2.5 MLS/HR Acetylcysteine 100 mg Q4HR NEB 05/05/25 10:00 UNV Dextrose/Sodium Chloride 1,000 ml @ 50 mls/hr Q20H IV 05/05/25 08:45 05/09/25 18:39 50 MLS/HR Acetylcysteine 100 mg Q6HR NEB 05/06/25 12:00 05/09/25 19:16 100 MG Ipratropium [place] 0.5 mg Q6HR NEB 05/06/25 12:00 05/09/25 19:16 0.5 MG Levalbuterol HCl 0.625 mg Q6HR NEB 05/06/25 12:00 05/09/25 19:16 0.625 MG Enoxaparin Sodium 50 mg Q12HR SC 05/07/25 22:00 05/09/25 22:03 50 MG Metoclopramide HCl 5 mg Q8HR IV 05/08/25 14:00 05/09/25 22:03 5 MG Vancomycin HCl 0 ml @ 0 mls/hr PER PHARMACY IV 05/09/25 10:30 Acetaminophen 650 mg Q6HP PRN [place] 05/09/25 10:30 Meropenem 50 ml @ 17 mls/hr Q12HR IV 05/09/25 14:00 05/09/25 22:03 17 MLS/HR Potassium Acetate 40 meq/Potassium Phosphate 48.4 meq/Magnesium Sulfate 26 meq/ Multivitamins 10 ml/Chromium/ Copper/Manganese/ Zinc 1 ml/Calcium Gluconate 2.3 meq/ Amino Acids/ Dextrose/Purified Water 1,203.4462 ml @ 50 mls/hr Q24H5M IV 05/09/25 22:00 05/10/25 21:59 05/09/25 22:14 50 MLS/HR Vancomycin HCl 250 ml @ 200 mls/hr Q12H IV 05/09/25 18:00 Cancel Vancomycin HCl 100 ml @ 100 mls/hr Q24H IV 05/10/25 12:00 Laboratory Results Laboratory Tests 05/08/25 03:00 05/09/25 03:10 Chemistry Test 05/09/25 03:10 Albumin 2.9 g/dL (3.2-4.8) L Calcium Level 7.9 mg/dL (8.7-10.4) L Magnesium Level 1.9 mg/dL (1.6-2.6) Phosphorus Level 2.7 mg/dL (2.4-5.1) Total Protein 5.6 g/dL (5.7-8.2) L LFT Test 05/09/25 03:10 Alanine Aminotransferase (ALT) 33 U/L (7-40) Alkaline Phosphatase 108 U/L (46-116) Aspartate Amino Transferase (AST) 31 U/L (13-40) Total Bilirubin 0.4 mg/dL (0.2-1.0) Urinalysis Test 04/15/25 15:45 Urine Color Light-orange (Yellow) Urine Clarity Ex.turbid (Clear) Urine pH 5.5 (5.0-9.0) Urine Specific [place] 1.028 (1.001-1.035) Urine Protein 1+ (Negative) H Urine Ketones Negative (Negative) Urine Blood 1+ /uL (Negative) H Urine Nitrite Negative (Negative) Urine Bilirubin Negative (Negative) Urine Urobilinogen 3 mg/dL (Negative) H Urine Leukocyte Esterase Negative /uL (Negative) Urine RBC 16 /hpf (0 - 4) Urine Microscopic WBC 1 /HPF (0-5) Urine Squamous Epithelial Cells Mod /hpf (<5) Urine Amorphous Crystals Few /hpf (None Seen) Urine Bacteria Few /hpf (None Seen) H Urine Hyaline Casts Few /lpf (0 - 2) Urine Mucus Few (None Seen) Urine Glucose Normal mg/dL (Normal) Blood Gas Results Test 05/09/25 08:01 Arterial Blood pH 7.401 (7.350-7.450) FiO2 % 30.0 Microbiology Microbiology Date/Time Source Procedure Growth Status 05/02/25 20:30 Sputum Gram Stain - Final Complete 05/02/25 20:30 Sputum Respiratory Culture - Final Complete 05/02/25 00:00 Nose MRSA Screen - Final Complete 04/30/25 14:30 Pleural Fluid Gram Stain - Final Complete 04/30/25 14:30 Pleural Fluid Body Fluid Culture - Final Complete Assessment/Plan Assessment/Plan Impression: Acute hypoxic respiratory failure On mechanical ventilator Atelectasis Lung collapse Pneumonia Hx of nicotine dependence Cachexia, BMI 17.4 Small bowel obstruction Events: Patient seen and examined at bedside. Remains on mechanical ventilator On AC mode; RR 22, VT 450, PEEP 5, FiO2 30% Sedated on Propofol On Fentanyl drip for analgesia Continue daily CPAP trials CT abdomen/pelvis revealed suspicion for ileus versus bowel obstruction given retention of contrast primarily in the proximal small bowel. Trace bilateral pleural effusions with atelectasis and consolidation of the left lower lobe. Compression deformities, favored to be chronic. Left-sided pleural effusion with suspected consolidation of the left lower lobe with air bronchograms. Patient remains NPO TPN for nutritional support KUB today shows nonspecific bowel gas pattern. Defer to Surgery - Surgery may plan for surgical procedure due to SBO. Will await surgical clearance before proceeding to extubation. Surgery recommendations appreciated Hemoglobin trended down to 9.4 g/dL - monitor Monitor for fevers - cooling measures PRN Continue TPN for nutritional support NGT to LIS - monitor output GI recs appreciated Protonix for GI ppx Continue bronchodilators Mucolytics with Mucomyst Chest percussive therapy Continue antibiotics Continue antifungals Incentive spirometry IV fluids with LR HOB elevation Aspiration precautions S/p bronchoscopy on 04/26/25 with clearance of copious secretions in L1-L10. Endobronchial lesion in left mainstem bronchus, biopsied. Follow up biopsy results. CT chest demonstrated improved aeration of left upper lobe Repeat bronchoscopy was performed on 04/30/25 with removal of mucous plugs in left lower lobe bronchus. Left thoracentesis was performed on 04/30/25 with removal of 250 mL serosanguineous fluid. Pleural fluid cultures showed no growth Labs and imaging reviewed. Rest of plan as noted below. Plan: s/p intubation on mechanical ventilator. On AC mode; RR 22, VT 450, PEEP 5, FiO2 30% Titrate FIO2 to keep O2 saturation above 90%. VAP bundle. Daily ABG and CXR while intubated Sedate for vent synchrony Pressors for hemodynamic support Titrate to keep mean arterial pressure greater than 65 mmHg Plan for surgery due to small bowel obstruction Follow up Surgery recommendations. Continue bronchodilators. Continue antibiotics Incentive spirometry Head of bed elevation Aspiration precautions NGT in place TPN for nutritional support Monitor renal function. Monitor electrolytes. Supplement as necessary. Monitor ins and outs. DVT prophylaxis. Prognosis: Poor given patient's multiple co-morbidities. Condition: Critical Rest of plan per hospitalist and other consultants. A total of 35 minutes of critical care time was spent reviewing the patient record, examining the patient, making a diagnostic and therapeutic plan, discussing this plan with the medical personnel, following up on diagnostic studies and following the patient for clinical stability excluding any and all procedures. At least 50% of this time was spent in direct, [id number] contact. Thank you, JESÚS oFrd, for allowing me to participate in this patient's care. Further recommendations will depend on the patient's clinical course. Please do not hesitate to contact me if you have any questions or concerns. This medical document was created using an electronic medical record system with [employer] dictation system. Although these documentations are being carefully reviewed, there may still be some phonetic and typographical changes. The errors are purely typographical, due to imperfection on the software program, and do not reflect any compromise in the patient's medical care. Plan discussed with: Other (KIA Delong) My Orders Orders - KARENA WESTFALL MD Procedure Category Date Status Time Dexmedetomidine Hcl PHA 05/09/25 In Process In D5w (Precedex) 09:36 Visit Coding Pulmonary Billing Provider: KARENA WESTFALL MD Date of Service if different f: May 09, 2025 Common Visit Codes: [id number] INP/OBS CARE(HIGH), [id number] CARE 30-74 MIN KARENA WESTFALL MD May 09, 2025 23:58
[2025-05-10] VITALS (112 sets, daily range): BP systolic 84–142; BP diastolic 38–68; PULSE 73–165; RESP 16–28; TEMP 97.4–98.3; O2SAT 94–100
[2025-05-10 04:28] LABS: Hematocrit 25.2 % (36.0-46.0); Hemoglobin 8.4 g/dL (12.2-16.2)
[2025-05-10 04:31] LABS: Mean Corpuscular Hemoglobin 33.4 pg (28.0-32.0); Mean Corpuscular Volume 99.9 fL (80.0-100.0); Nucleated Red Blood Cells % 0.1 %
[2025-05-10 04:44] LABS: Alanine Aminotransferase 36 U/L (7-40); Alkaline Phosphatase 99 U/L (46-116); Anion Gap 9 (5-15); BUN/Creatinine Ratio 70.0 (10.0-20.0); Bilirubin, Total 0.3 mg/dL (0.2-1.0); Blood Urea Nitrogen 21 mg/dL (9-23); Carbon Dioxide 26 mmol/L (20-31); Magnesium 2.0 mg/dL (1.6-2.6); Potassium 3.9 mmol/L (3.5-5.1)
[2025-05-10 05:01] LABS: Albumin 2.6 g/dL (3.2-4.8); Calcium 7.5 mg/dL (8.7-10.4); Chloride 112 mmol/L (98-107); Glucose 115 mg/dL (74-106); Sodium 147 mmol/L (136-145); Total Protein 4.8 g/dL (5.7-8.2)
[2025-05-10 08:05] LABS: Base Excess -1.1 mmol/L (-2.0-3.0)
--- NOTE | 2025-05-10 08:12 | DVHPN2 ---
Reviewed: Care Plan, H&P, Labs, Medications Changes from previous H/P or p: No Changes General: Per HPI Objective Vitals Vital Signs Date Time Temp Pulse Resp B/P (MAP) Pulse Ox O2 Delivery O2 Flow Rate FiO2 05/10/25 07:33 86 25 131/51 (77) 99 30 05/10/25 06:00 Mechanical Ventilator+ 05/10/25 04:15 97.4 97.4 05/08/25 23:16 3.0 Intake/Output Intake and Output 05/10/25 07:00 Intake Total 2667.692 ml Output Total 4105 ml Balance -1437.308 ml Intake Oral 0 ml IV Total 2667.692 ml Output Urine Total 2855 ml Gastric Drainage Total 1250 ml General Appearance: Cooperative, mild distress, Other (Underlying dementia. Currently on vent) HEENT: PERRLA, Other Lungs: Other (On vent. Transmitted breath sounds bilaterally. Decreased air entry bilaterally. No wheezing. Bibasilar crackles.) Cardiovascular: Normal S1, Normal S2 Abdomen: No tenderness, No hepatospenomegaly, Other (Hypoactive bowel sounds.) Genitourinary: No Apparent Abnormalities (Grewal catheter) Musculoskeletal: Normal sensory function, Normal motor function Extremities: No edema, Normal pulses, No tenderness/swelling Neuro: Cranial nerves 3-12 NL, Other Skin: Dry, Intact, Wounds, Other (Surgical wound D&I) Psych/Mental Status: Mood NL Medications Current Medications Medications Dose Ordered Sig/Gregory Route Start Time Stop Time Status Last Admin Dose Admin Pantoprazole Sodium 40 mg DAILY IV 04/16/25 10:00 05/09/25 10:43 40 MG Amino Acids 0 ml @ 0 mls/hr PER PHARMACY IV 04/18/25 17:45 Sodium Chloride 10 ml QSHIFT@10,22 IV 04/21/25 22:00 05/09/25 22:03 10 ML Albuterol 2.5 mg Q3HPRN PRN NEB 04/24/25 16:15 05/08/25 12:13 2.5 MG Nicardipine/ Sodium Chloride 200 ml @ 50 mls/hr Q4H IV 04/25/25 09:45 Diagnostic Test (Pha) 1 strip Q6HR 04/30/25 12:00 05/10/25 06:13 1 STRIP Insulin Human Regular FOLLOW SLIDING SCALE Q6HR SC 04/30/25 12:00 05/08/25 14:29 2 UNITS Dextrose 50 ml UD IV 04/30/25 09:00 05/09/25 00:20 50 ML Lidocaine 1 patch DAILY TOP 04/30/25 10:30 05/09/25 10:45 1 PATCH Morphine Sulfate 1 mg Q6HP PRN IV 04/30/25 10:30 05/02/25 17:58 1 MG Metoprolol Tartrate 2.5 mg Q4HR PRN IV 04/30/25 11:30 05/06/25 09:11 2.5 MG Oxycodone/ Acetaminophen 1 tab Q6HP PRN PO 05/02/25 10:00 Docusate Sodium 100 mg BID PO 05/02/25 10:00 05/02/25 22:00 100 MG Propofol 100 ml @ 1.296 mls/ hr Q24H IV 05/02/25 20:45 05/10/25 05:44 6.48 MLS/HR Fentanyl Citrate 250 ml @ 2.5 mls/hr Q24H IV 05/02/25 20:45 05/09/25 11:00 2.5 MLS/HR Acetylcysteine 100 mg Q4HR NEB 05/05/25 10:00 UNV Dextrose/Sodium Chloride 1,000 ml @ 50 mls/hr Q20H IV 05/05/25 08:45 05/09/25 18:39 50 MLS/HR Acetylcysteine 100 mg Q6HR NEB 05/06/25 12:00 05/10/25 06:38 100 MG Ipratropium [place] 0.5 mg Q6HR NEB 05/06/25 12:00 05/10/25 06:38 0.5 MG Levalbuterol HCl 0.625 mg Q6HR NEB 05/06/25 12:00 05/10/25 06:37 0.625 MG Enoxaparin Sodium 50 mg Q12HR SC 05/07/25 22:00 05/09/25 22:03 50 MG Metoclopramide HCl 5 mg Q8HR IV 05/08/25 14:00 05/10/25 06:15 5 MG Vancomycin HCl 0 ml @ 0 mls/hr PER PHARMACY IV 05/09/25 10:30 Acetaminophen 650 mg Q6HP PRN [place] 05/09/25 10:30 Meropenem 50 ml @ 17 mls/hr Q12HR IV 05/09/25 14:00 05/09/25 22:03 17 MLS/HR Potassium Acetate 40 meq/Potassium Phosphate 48.4 meq/Magnesium Sulfate 26 meq/ Multivitamins 10 ml/Chromium/ Copper/Manganese/ Zinc 1 ml/Calcium Gluconate 2.3 meq/ Amino Acids/ Dextrose/Purified Water 1,203.4462 ml @ 50 mls/hr Q24H5M IV 05/09/25 22:00 05/10/25 21:59 05/09/25 22:14 50 MLS/HR Vancomycin HCl 250 ml @ 200 mls/hr Q12H IV 05/09/25 18:00 Cancel Vancomycin HCl 100 ml @ 100 mls/hr Q24H IV 05/10/25 12:00 Laboratory Results Laboratory Tests 05/10/25 04:00 Chemistry Test 05/10/25 04:00 Albumin 2.6 g/dL (3.2-4.8) L Calcium Level 7.5 mg/dL (8.7-10.4) L Magnesium Level 2.0 mg/dL (1.6-2.6) Phosphorus Level 3.1 mg/dL (2.4-5.1) Total Protein 4.8 g/dL (5.7-8.2) L LFT Test 05/10/25 04:00 Alanine Aminotransferase (ALT) 36 U/L (7-40) Alkaline Phosphatase 99 U/L (46-116) Aspartate Amino Transferase (AST) 40 U/L (13-40) Total Bilirubin 0.3 mg/dL (0.2-1.0) Urinalysis Test 04/15/25 15:45 Urine Color Light-orange (Yellow) Urine Clarity Ex.turbid (Clear) Urine pH 5.5 (5.0-9.0) Urine Specific [place] 1.028 (1.001-1.035) Urine Protein 1+ (Negative) H Urine Ketones Negative (Negative) Urine Blood 1+ /uL (Negative) H Urine Nitrite Negative (Negative) Urine Bilirubin Negative (Negative) Urine Urobilinogen 3 mg/dL (Negative) H Urine Leukocyte Esterase Negative /uL (Negative) Urine RBC 16 /hpf (0 - 4) Urine Microscopic WBC 1 /HPF (0-5) Urine Squamous Epithelial Cells Mod /hpf (<5) Urine Amorphous Crystals Few /hpf (None Seen) Urine Bacteria Few /hpf (None Seen) H Urine Hyaline Casts Few /lpf (0 - 2) Urine Mucus Few (None Seen) Urine Glucose Normal mg/dL (Normal) Blood Gas Results Test 05/10/25 07:13 Arterial Blood pH 7.480 (7.350-7.450) FiO2 % 30.0 Microbiology Microbiology Date/Time Source Procedure Growth Status 05/02/25 20:30 Sputum Gram Stain - Final Complete 05/02/25 20:30 Sputum Respiratory Culture - Final Complete 05/02/25 00:00 Nose MRSA Screen - Final Complete 04/30/25 14:30 Pleural Fluid Gram Stain - Final Complete 04/30/25 14:30 Pleural Fluid Body Fluid Culture - Final Complete Labs and/or images reviewed: Labs reviewed by me, Image(s) reviewed by me Assessment/Plan Assessment/Plan HPI: 89-year-old female presents for evaluation of abdominal pain. Patient with dementia noted by family members to be complaining of abdominal pain for the past two days. There is no nausea or vomiting. Family also reports worsening confusion from baseline. Past Medical History Dementia, COPD, GERD, asthma 05/07: Patient currently intubated and sedated. CPAP with adequate respiratory status. KUB without any signs of ileus. NG secretions 25 mL overnight. Discussed case with Dr. Clau Cui who is agreeable for CPAP after performing a repeat KUB after having NG tube taken off suction for 5 hours. 05/08: 89 female here with SBO, patient had come to ICU after surgery and then extubated and downgraded to [facility], had to be reintubated due to aspiration pneumonia. Currently has NG tube on intermittent suction, overnight having 150 u bilious output. Surgery today planning for oral contrast CT. Good urine output without Lasix. Feeds is getting TPN. No sedation vacation, RASS-1 to - 2. Daily CPAP trials approximately 5 hours. Vital signs stable. We will continue primary hospitalist plan. 05/09: Pulmonology continuing with CPAP trials. Patient continues to have fevers. Still having output in NG tube. We will collect blood cultures again with fevers. And escalate antibiotic therapy from Zosyn to vancomycin and meropenem. 05/10: Yesterday NG output was 1 L, this a.m. overnight NG output was 200 cc. Still significant. Abdominal x-ray showing fecal burden, trial of enema was done but no significant output received. Reglan 5 t.i.d., defer changes or increased to surgery. Surgery does not want CPAP trials. CPAP trial only for respiratory exercise, advice against extubation at this point. Given patient has significant NG output continuing. No further fevers blood cultures pending, escalation of antibiotics is working. Continue vanc and meropenem. Vancomycin per pharmacy. Urine output good, Impression: -choledocholithiasis -acute pancreatitis -small-bowel obstruction -dementia -cachexia -sepsis -COPD -GERD -Post op delirium -Accelerated HTN -A. fib Plan: -IV Reglan 10 mg q.8 hours -add D5 NS, continue TPN -IV diuresis -being weaned sedation, attempt CPAP -Continue Zosyn -PPI -full-dose anticoagulation -continue bronchodilators, Mucomyst -repeat labs and chest x-ray in a.m. Critical care time spent with patient discussing and formulating plan of care: 40 minutes. This does not include time spent performing procedures. Plan discussed with: Other My Orders Orders - LUDIVINA RIOS MD Procedure Category Date Status Time Vancomycin Per PHA 05/09/25 In Process Pharmacy 10:30 Acetaminophen PHA 05/09/25 In Process Suppository (Tylenol 10:30 Blood Culture JANESSA 05/09/25 In Process 10:16 Meropenem 1gm Ivpb PHA 05/09/25 In Process (Merrem 1gm/50ml) 14:00 Communication Order ORDERS 05/09/25 Transmitted 10:43 Vancomycin,Trough LAB 05/12/25 Verified 11:00 Vancomycin 750mg Kit PHA 05/10/25 In Process (Vancomycin Hcl) 12:00 Vancomycin Per [facility] 05/12/25 In Process Pharmacy Protoc 11:00 Date of Service: May 10, 2025 Billing Provider: LUDIVINA RIOS MD Common Visit Codes: 55746-[id number] CARE 30-74 MIN LUDIVINA RIOS MD May 10, 2025 08:12
[2025-05-10] MEDS: VANCOMYCIN 750MG KIT 100 ML IV SCH (12:29)
--- NOTE | 2025-05-10 13:17 | DVHPN2 ---
Progress Note Date Seen: May 10, 2025 Resident Creating Document: HOLLY DEAN RESIDENT Medical Necessity Reason Pt with a Central, PICC or Fol: Yes The following are medically ne: PICC Line, Grewal Catheter Subjective Review of Systems Patient seen and examined at bedside Sedated and mechanically ventilated Residual volumes 200 mL suctioned in the morning Objective vital signs Vital Sign Date Time Temp Pulse Resp B/P (MAP) Pulse Ox O2 Delivery O2 Flow Rate FiO2 05/10/25 12:45 126/51 05/10/25 11:28 99 24 98 30 05/10/25 09:00 98.1 98.1 05/10/25 06:00 Mechanical Ventilator+ 05/08/25 23:16 3.0 Total Intake and Output 05/09/25 05/09/25 05/10/25 14:59 22:59 06:59 Intake Total 950.158 ml 890.398 ml 850.544 ml Output Total 850 ml 2080 ml 1175 ml Balance 100.158 ml -1189.602 ml -324.456 ml medications Current Medications Medications Dose Ordered Sig/Gregory Route Start Time Stop Time Status Last Admin Dose Admin Pantoprazole Sodium 40 mg DAILY IV 04/16/25 10:00 05/10/25 10:13 40 MG Amino Acids 0 ml @ 0 mls/hr PER PHARMACY IV 04/18/25 17:45 Sodium Chloride 10 ml QSHIFT@10,22 IV 04/21/25 22:00 05/10/25 10:16 10 ML Albuterol 2.5 mg Q3HPRN PRN NEB 04/24/25 16:15 05/08/25 12:13 2.5 MG Nicardipine/ Sodium Chloride 200 ml @ 50 mls/hr Q4H IV 04/25/25 09:45 Diagnostic Test (Pha) 1 strip Q6HR 04/30/25 12:00 05/10/25 12:23 1 STRIP Insulin Human Regular FOLLOW SLIDING SCALE Q6HR SC 04/30/25 12:00 05/08/25 14:29 2 UNITS Dextrose 50 ml UD IV 04/30/25 09:00 05/09/25 00:20 50 ML Lidocaine 1 patch DAILY TOP 04/30/25 10:30 05/10/25 10:18 1 PATCH Morphine Sulfate 1 mg Q6HP PRN IV 04/30/25 10:30 05/02/25 17:58 1 MG Metoprolol Tartrate 2.5 mg Q4HR PRN IV 04/30/25 11:30 05/06/25 09:11 2.5 MG Oxycodone/ Acetaminophen 1 tab Q6HP PRN PO 05/02/25 10:00 Docusate Sodium 100 mg BID PO 05/02/25 10:00 05/02/25 22:00 100 MG Propofol 100 ml @ 1.296 mls/ hr Q24H IV 05/02/25 20:45 05/10/25 12:45 6.48 MLS/HR Fentanyl Citrate 250 ml @ 2.5 mls/hr Q24H IV 05/02/25 20:45 05/09/25 11:00 2.5 MLS/HR Acetylcysteine 100 mg Q4HR NEB 05/05/25 10:00 UNV Dextrose/Sodium Chloride 1,000 ml @ 50 mls/hr Q20H IV 05/05/25 08:45 05/09/25 18:39 50 MLS/HR Acetylcysteine 100 mg Q6HR NEB 05/06/25 12:00 05/10/25 11:28 100 MG Ipratropium [place] 0.5 mg Q6HR NEB 05/06/25 12:00 05/10/25 11:28 0.5 MG Levalbuterol HCl 0.625 mg Q6HR NEB 05/06/25 12:00 05/10/25 11:28 0.625 MG Enoxaparin Sodium 50 mg Q12HR SC 05/07/25 22:00 05/10/25 10:16 50 MG Metoclopramide HCl 5 mg Q8HR IV 05/08/25 14:00 05/10/25 06:15 5 MG Vancomycin HCl 0 ml @ 0 mls/hr PER PHARMACY IV 05/09/25 10:30 Acetaminophen 650 mg Q6HP PRN [place] 05/09/25 10:30 Meropenem 50 ml @ 17 mls/hr Q12HR IV 05/09/25 14:00 05/10/25 10:13 17 MLS/HR Potassium Acetate 40 meq/Potassium Phosphate 48.4 meq/Magnesium Sulfate 26 meq/ Multivitamins 10 ml/Chromium/ Copper/Manganese/ Zinc 1 ml/Calcium Gluconate 2.3 meq/ Amino Acids/ Dextrose/Purified Water 1,203.4462 ml @ 50 mls/hr Q24H5M IV 05/09/25 22:00 05/10/25 21:59 05/09/25 22:14 50 MLS/HR Vancomycin HCl 250 ml @ 200 mls/hr Q12H IV 05/09/25 18:00 Cancel Vancomycin HCl 100 ml @ 100 mls/hr Q24H IV 05/10/25 12:00 05/10/25 12:29 100 MLS/HR Potassium Acetate 60 meq/Potassium Phosphate 44 meq/ Calcium Gluconate 4.65 meq/ Magnesium Sulfate 26 meq/ Multivitamins 10 ml/Chromium/ Copper/Manganese/ Zinc 1 ml/Amino Acids/Dextrose/ Purified Water 1,217.5 ml @ 51 mls/hr [id number] IV 05/10/25 22:00 05/11/25 21:59 Examination Gen - no pallor, no scleral icterus Skin - Patients skin is warm and dry. HEENT - normocephalic, atraumatic, dry mucous membranes. Neck - supple, no lymphadenopathy Pulmonary - improved breath sounds in the left side, right side sounds without any crackles or wheezing cardiovascular - regular S1,S2 heard GI - soft abdomen status post exploratory laparotomy midline incision covered in a sterile dressing. Bowel sounds hypoactive Neurological - Patient is sedated and on mechanical ventilation laboratory and microbiology Laboratory Tests 05/10/25 04:00 Test 05/10/25 04:00 Range/Units Serum Glucose 115 H 74-106 mg/dL Microbiology Date/Time Source Procedure Growth Status 05/09/25 11:22 Blood Blood Culture - Preliminary NO GROWTH AFTER 24 HOURS OF INCUBATION. Resulted 05/02/25 20:30 Sputum Gram Stain - Final Complete 05/02/25 20:30 Sputum Respiratory Culture - Final Complete 05/02/25 00:00 Nose MRSA Screen - Final Complete 04/30/25 14:30 Pleural Fluid Gram Stain - Final Complete 04/30/25 14:30 Pleural Fluid Body Fluid Culture - Final Complete Problem List/Assessment/Plan Problem List/Assessment/Plan Assessment Small-bowel obstruction s/p exploratory laparotomy with a possible transition point Choledocholithiasis Left lung atelectasis likely due to aspiration Status post bronchoscopy Plan - intubated and on mechanical ventilation - KUB on 05/07 showed nonspecific bowel gas pattern with a paucity of air in small bowel loops - CT abdomen pelvis with IV contrast done on 05/08 shows possible ileus versus bowel obstruction - NG tube to LIS - continue on TPN and NPO - diet to be advanced as per primary surgeon PUD prophylaxis with Protonix Plan discussed with Dr. Cui Plan discussed with: Other (KIA Delong) Dietary Evaluation Review Recommendations by RD: PPN/TPN Comments: 1) Increase TPN to meet at least 75% estimated daily needs 2) Advance to cardiac diet when medically feasible 3) Follow-up with gastroenterology and neurology 4) Continue to monitor I&O, labs, and skin integrity Expected Outcomes/Goals: 1) nutrition support to meet at least 75% estimated daily needs 2) labs to improve 3) diet to advance 4) gradual wt gain 5) f/u in 2-3 days HOLLY DEAN RESIDENT May 10, 2025 13:17
[2025-05-10] MEDS: GASTROGRAFIN 120 ML SOL ONE (13:28)
[2025-05-10] MEDS: D5W/SOD CHL 0.45% 1,000 ML IV SCH (16:10)
--- NOTE | 2025-05-10 16:48 | DVHPN2 ---
Progress Note Date Seen: May 09, 2025 Medical Necessity Reason Pt with a Central, PICC or Fol: Yes The following are medically ne: PICC Line, Grewal Catheter Objective vital signs Vital Sign Date Time Temp Pulse Resp B/P (MAP) Pulse Ox O2 Delivery O2 Flow Rate FiO2 05/10/25 16:20 88 22 103/55 (71) 98 30 05/10/25 16:02 Mechanical Ventilator+ 05/10/25 09:00 98.1 98.1 05/08/25 23:16 3.0 Total Intake and Output 05/09/25 05/09/25 05/10/25 15:00 23:00 07:00 Intake Total 938.27 ml 880.174 ml 849.248 ml Output Total 850 ml 2080 ml 1175 ml Balance 88.27 ml -1199.826 ml -325.752 ml medications Current Medications Medications Dose Ordered Sig/Gregory Route Start Time Stop Time Status Last Admin Dose Admin Pantoprazole Sodium 40 mg DAILY IV 04/16/25 10:00 05/10/25 10:13 40 MG Amino Acids 0 ml @ 0 mls/hr PER PHARMACY IV 04/18/25 17:45 Sodium Chloride 10 ml QSHIFT@10,22 IV 04/21/25 22:00 05/10/25 10:16 10 ML Albuterol 2.5 mg Q3HPRN PRN NEB 04/24/25 16:15 05/08/25 12:13 2.5 MG Nicardipine/ Sodium Chloride 200 ml @ 50 mls/hr Q4H IV 04/25/25 09:45 Diagnostic Test (Pha) 1 strip Q6HR 04/30/25 12:00 05/10/25 12:23 1 STRIP Insulin Human Regular FOLLOW SLIDING SCALE Q6HR SC 04/30/25 12:00 05/08/25 14:29 2 UNITS Dextrose 50 ml UD IV 04/30/25 09:00 05/09/25 00:20 50 ML Lidocaine 1 patch DAILY TOP 04/30/25 10:30 05/10/25 10:18 1 PATCH Morphine Sulfate 1 mg Q6HP PRN IV 04/30/25 10:30 05/02/25 17:58 1 MG Metoprolol Tartrate 2.5 mg Q4HR PRN IV 04/30/25 11:30 05/06/25 09:11 2.5 MG Oxycodone/ Acetaminophen 1 tab Q6HP PRN PO 05/02/25 10:00 Docusate Sodium 100 mg BID PO 05/02/25 10:00 05/02/25 22:00 100 MG Propofol 100 ml @ 1.296 mls/ hr Q24H IV 05/02/25 20:45 05/10/25 12:45 6.48 MLS/HR Fentanyl Citrate 250 ml @ 2.5 mls/hr Q24H IV 05/02/25 20:45 05/09/25 11:00 2.5 MLS/HR Acetylcysteine 100 mg Q4HR NEB 05/05/25 10:00 UNV Dextrose/Sodium Chloride 1,000 ml @ 50 mls/hr Q20H IV 05/05/25 08:45 05/09/25 18:39 50 MLS/HR Acetylcysteine 100 mg Q6HR NEB 05/06/25 12:00 05/10/25 11:28 100 MG Ipratropium [place] 0.5 mg Q6HR NEB 05/06/25 12:00 05/10/25 11:28 0.5 MG Levalbuterol HCl 0.625 mg Q6HR NEB 05/06/25 12:00 05/10/25 11:28 0.625 MG Enoxaparin Sodium 50 mg Q12HR SC 05/07/25 22:00 05/10/25 10:16 50 MG Metoclopramide HCl 5 mg Q8HR IV 05/08/25 14:00 05/10/25 14:28 5 MG Vancomycin HCl 0 ml @ 0 mls/hr PER PHARMACY IV 05/09/25 10:30 Acetaminophen 650 mg Q6HP PRN [place] 05/09/25 10:30 Meropenem 50 ml @ 17 mls/hr Q12HR IV 05/09/25 14:00 05/10/25 10:13 17 MLS/HR Potassium Acetate 40 meq/Potassium Phosphate 48.4 meq/Magnesium Sulfate 26 meq/ Multivitamins 10 ml/Chromium/ Copper/Manganese/ Zinc 1 ml/Calcium Gluconate 2.3 meq/ Amino Acids/ Dextrose/Purified Water 1,203.4462 ml @ 50 mls/hr Q24H5M IV 05/09/25 22:00 05/10/25 21:59 05/09/25 22:14 50 MLS/HR Vancomycin HCl 250 ml @ 200 mls/hr Q12H IV 05/09/25 18:00 Cancel Vancomycin HCl 100 ml @ 100 mls/hr Q24H IV 05/10/25 12:00 05/10/25 12:29 100 MLS/HR Potassium Acetate 60 meq/Potassium Phosphate 44 meq/ Calcium Gluconate 4.65 meq/ Magnesium Sulfate 26 meq/ Multivitamins 10 ml/Chromium/ Copper/Manganese/ Zinc 1 ml/Amino Acids/Dextrose/ Purified Water 1,217.5 ml @ 51 mls/hr [id number] IV 05/10/25 22:00 05/11/25 21:59 laboratory and microbiology Laboratory Tests 05/10/25 04:00 Test 05/10/25 04:00 Range/Units Serum Glucose 115 H 74-106 mg/dL Microbiology Date/Time Source Procedure Growth Status 05/09/25 11:22 Blood Blood Culture - Preliminary NO GROWTH AFTER 24 HOURS OF INCUBATION. Resulted 05/02/25 20:30 Sputum Gram Stain - Final Complete 05/02/25 20:30 Sputum Respiratory Culture - Final Complete 05/02/25 00:00 Nose MRSA Screen - Final Complete 04/30/25 14:30 Pleural Fluid Gram Stain - Final Complete 04/30/25 14:30 Pleural Fluid Body Fluid Culture - Final Complete Problem List/Assessment/Plan Problem List/Assessment/Plan AFEBRILE VSS REMAINS INTUBATED AWAKE AND RESPONSIVE OG IN PLACE 300 CC ABD SOFT NON TENDER RECTAL EXAM TRACE BM SOME FLATUS WOUND DRESSING DRY KEEP NPO CONTINUE SUPPORTIVE CARE FAMILY AWARE OF PT CONDITION NURSE AT BEDSIDE ONGOING PULM EVAL CT SCAN ABD PELVIS R/O PARTIAL SBO/ILEUS/CONSTIPATION CONSIDER EMERGENT SURGERY BASED ON ONGOING EVAL Plan discussed with: Other My Orders My Orders Orders - GLORIA MCNEAL MD Procedure Category Date Status Time Small Bowel Series-W XY 05/10/25 Logged Gastrogra 11:54 Dietary Evaluation Review Recommendations by RD: PPN/TPN Comments: 1) Increase TPN to meet at least 75% estimated daily needs 2) Advance to cardiac diet when medically feasible 3) Follow-up with gastroenterology and neurology 4) Continue to monitor I&O, labs, and skin integrity Expected Outcomes/Goals: 1) nutrition support to meet at least 75% estimated daily needs 2) labs to improve 3) diet to advance 4) gradual wt gain 5) f/u in 2-3 days GLORIA MCNEAL MD May 10, 2025 16:48
--- NOTE | 2025-05-10 16:51 | DVHPN2 ---
Progress Note Date Seen: May 10, 2025 Medical Necessity Reason Pt with a Central, PICC or Fol: Yes The following are medically ne: PICC Line, Grewal Catheter Objective vital signs Vital Sign Date Time Temp Pulse Resp B/P (MAP) Pulse Ox O2 Delivery O2 Flow Rate FiO2 05/10/25 16:20 88 22 103/55 (71) 98 30 05/10/25 16:02 Mechanical Ventilator+ 05/10/25 09:00 98.1 98.1 05/08/25 23:16 3.0 Total Intake and Output 05/09/25 05/09/25 05/10/25 15:00 23:00 07:00 Intake Total 938.27 ml 880.174 ml 849.248 ml Output Total 850 ml 2080 ml 1175 ml Balance 88.27 ml -1199.826 ml -325.752 ml medications Current Medications Medications Dose Ordered Sig/Gregory Route Start Time Stop Time Status Last Admin Dose Admin Pantoprazole Sodium 40 mg DAILY IV 04/16/25 10:00 05/10/25 10:13 40 MG Amino Acids 0 ml @ 0 mls/hr PER PHARMACY IV 04/18/25 17:45 Sodium Chloride 10 ml QSHIFT@10,22 IV 04/21/25 22:00 05/10/25 10:16 10 ML Albuterol 2.5 mg Q3HPRN PRN NEB 04/24/25 16:15 05/08/25 12:13 2.5 MG Nicardipine/ Sodium Chloride 200 ml @ 50 mls/hr Q4H IV 04/25/25 09:45 Diagnostic Test (Pha) 1 strip Q6HR 04/30/25 12:00 05/10/25 12:23 1 STRIP Insulin Human Regular FOLLOW SLIDING SCALE Q6HR SC 04/30/25 12:00 05/08/25 14:29 2 UNITS Dextrose 50 ml UD IV 04/30/25 09:00 05/09/25 00:20 50 ML Lidocaine 1 patch DAILY TOP 04/30/25 10:30 05/10/25 10:18 1 PATCH Morphine Sulfate 1 mg Q6HP PRN IV 04/30/25 10:30 05/02/25 17:58 1 MG Metoprolol Tartrate 2.5 mg Q4HR PRN IV 04/30/25 11:30 05/06/25 09:11 2.5 MG Oxycodone/ Acetaminophen 1 tab Q6HP PRN PO 05/02/25 10:00 Docusate Sodium 100 mg BID PO 05/02/25 10:00 05/02/25 22:00 100 MG Propofol 100 ml @ 1.296 mls/ hr Q24H IV 05/02/25 20:45 05/10/25 12:45 6.48 MLS/HR Fentanyl Citrate 250 ml @ 2.5 mls/hr Q24H IV 05/02/25 20:45 05/09/25 11:00 2.5 MLS/HR Acetylcysteine 100 mg Q4HR NEB 05/05/25 10:00 UNV Dextrose/Sodium Chloride 1,000 ml @ 50 mls/hr Q20H IV 05/05/25 08:45 05/09/25 18:39 50 MLS/HR Acetylcysteine 100 mg Q6HR NEB 05/06/25 12:00 05/10/25 11:28 100 MG Ipratropium [place] 0.5 mg Q6HR NEB 05/06/25 12:00 05/10/25 11:28 0.5 MG Levalbuterol HCl 0.625 mg Q6HR NEB 05/06/25 12:00 05/10/25 11:28 0.625 MG Enoxaparin Sodium 50 mg Q12HR SC 05/07/25 22:00 05/10/25 10:16 50 MG Metoclopramide HCl 5 mg Q8HR IV 05/08/25 14:00 05/10/25 14:28 5 MG Vancomycin HCl 0 ml @ 0 mls/hr PER PHARMACY IV 05/09/25 10:30 Acetaminophen 650 mg Q6HP PRN [place] 05/09/25 10:30 Meropenem 50 ml @ 17 mls/hr Q12HR IV 05/09/25 14:00 05/10/25 10:13 17 MLS/HR Potassium Acetate 40 meq/Potassium Phosphate 48.4 meq/Magnesium Sulfate 26 meq/ Multivitamins 10 ml/Chromium/ Copper/Manganese/ Zinc 1 ml/Calcium Gluconate 2.3 meq/ Amino Acids/ Dextrose/Purified Water 1,203.4462 ml @ 50 mls/hr Q24H5M IV 05/09/25 22:00 05/10/25 21:59 05/09/25 22:14 50 MLS/HR Vancomycin HCl 250 ml @ 200 mls/hr Q12H IV 05/09/25 18:00 Cancel Vancomycin HCl 100 ml @ 100 mls/hr Q24H IV 05/10/25 12:00 05/10/25 12:29 100 MLS/HR Potassium Acetate 60 meq/Potassium Phosphate 44 meq/ Calcium Gluconate 4.65 meq/ Magnesium Sulfate 26 meq/ Multivitamins 10 ml/Chromium/ Copper/Manganese/ Zinc 1 ml/Amino Acids/Dextrose/ Purified Water 1,217.5 ml @ 51 mls/hr [id number] IV 05/10/25 22:00 05/11/25 21:59 laboratory and microbiology Laboratory Tests 05/10/25 04:00 Test 05/10/25 04:00 Range/Units Serum Glucose 115 H 74-106 mg/dL Microbiology Date/Time Source Procedure Growth Status 05/09/25 11:22 Blood Blood Culture - Preliminary NO GROWTH AFTER 24 HOURS OF INCUBATION. Resulted 05/02/25 20:30 Sputum Gram Stain - Final Complete 05/02/25 20:30 Sputum Respiratory Culture - Final Complete 05/02/25 00:00 Nose MRSA Screen - Final Complete 04/30/25 14:30 Pleural Fluid Gram Stain - Final Complete 04/30/25 14:30 Pleural Fluid Body Fluid Culture - Final Complete Problem List/Assessment/Plan Problem List/Assessment/Plan AFEBRILE VSS REMAINS INTUBATED OG IN PLACE 900 CC BILE STAINED ABD SOFT NON TENDER WOUND DRESSING DRY KEEP NPO CONTINUE SUPPORTIVE CARE FAMILY AWARE OF PT CONDITION NURSE AT BEDSIDE ONGOING PULM EVAL CT SCAN ABD PELVIS R/O PARTIAL SBO/ILEUS/CONSTIPATION PROCEED WITH GASTROGRAFIN STUDY SMALL BOWEL FOLLOW THROUGH CONSIDER EMERGENT SURGERY BASED ON ONGOING EVAL Plan discussed with: Other My Orders My Orders Orders - GLORIA MCNEAL MD Procedure Category Date Status Time Small Bowel Series-W XY 05/10/25 Logged Gastrogra 11:54 Dietary Evaluation Review Recommendations by RD: PPN/TPN Comments: 1) Increase TPN to meet at least 75% estimated daily needs 2) Advance to cardiac diet when medically feasible 3) Follow-up with gastroenterology and neurology 4) Continue to monitor I&O, labs, and skin integrity Expected Outcomes/Goals: 1) nutrition support to meet at least 75% estimated daily needs 2) labs to improve 3) diet to advance 4) gradual wt gain 5) f/u in 2-3 days GLORIA MCNAEL MD May 10, 2025 16:51
--- NOTE | 2025-05-10 20:33 | DVH ---
Procedure: XY SMALL BOWEL SERIES-W GASTROGRA Reason for study/Clinical History: POSSIBLE SBO Comparison Study: CT CT AB PEL WITH ORAL CON ONLY on DOS: 05/08/25 Technique: Single contrast small bowel series performed. FINDINGS/IMPRESSION: Significant sliding hiatal hernia. Oral contrast administration lack of significant oral contrast in the No Decompressed: Even at the 6 hour time point compatible with abnormal delayed contrast passage Differential for small-bowel obstruction versus ileus. Consider follow-up KUB of the 18 versus 24 hour time point. Cholecystectomy clips. Bilateral hip marty arthroplasties
--- NOTE | 2025-05-10 21:50 | DVH ---
EXAM: XY KUB ABDOMEN SINGLE VIEW HISTORY: VIEW CONTRAST COMPARISON: XY KUB ABDOMEN SINGLE VIEW on DOS: 05/09/25 TECHNIQUE: 2 views of the abdomen FINDINGS/IMPRESSION: Nonobstructive bowel gas pattern. No visualization of contrast within large bowel loops contrast distending all small-bowel loops despite oblique imaging. Enteric tube in the proximal stomach. Small sliding hiatal hernia.
--- NOTE | 2025-05-10 23:07 | DVHPN2 ---
Subjective DOS: 05/10/2025 Patient seen and examined at bedside. Sedated, intubated on mechanical ventilator. Overnight events reviewed. Reviewed: Care Plan, H&P, Labs, Medications Changes from previous H/P or p: No Changes General: Per HPI Objective Vitals Vital Signs Date Time Temp Pulse Resp B/P (MAP) Pulse Ox O2 Delivery O2 Flow Rate FiO2 05/10/25 22:25 87 22 108/48 (68) 97 30 05/10/25 20:15 98.3 98.3 05/10/25 20:00 Mechanical Ventilator+ 05/08/25 23:16 3.0 Intake/Output Intake and Output 05/10/25 07:00 Intake Total 2667.692 ml Output Total 4105 ml Balance -1437.308 ml Intake Oral 0 ml IV Total 2667.692 ml Output Urine Total 2855 ml Gastric Drainage Total 1250 ml General Appearance: Cooperative, mild distress, Other (Underlying dementia. Currently on vent) HEENT: PERRLA, Other Lungs: Other (On vent. Transmitted breath sounds bilaterally. Decreased air entry bilaterally. No wheezing. Bibasilar crackles.) Cardiovascular: Normal S1, Normal S2 Abdomen: No tenderness, No hepatospenomegaly, Other (Hypoactive bowel sounds.) Genitourinary: No Apparent Abnormalities (Grewal catheter) Musculoskeletal: Normal sensory function, Normal motor function Extremities: No edema, Normal pulses, No tenderness/swelling Neuro: Cranial nerves 3-12 NL, Other Skin: Dry, Intact, Wounds, Other (Surgical wound D&I) Psych/Mental Status: Mood NL Medications Current Medications Medications Dose Ordered Sig/Gregory Route Start Time Stop Time Status Last Admin Dose Admin Pantoprazole Sodium 40 mg DAILY IV 04/16/25 10:00 05/10/25 10:13 40 MG Amino Acids 0 ml @ 0 mls/hr PER PHARMACY IV 04/18/25 17:45 Sodium Chloride 10 ml QSHIFT@,22 IV 04/21/25 22:00 05/10/25 22:48 10 ML Albuterol 2.5 mg Q3HPRN PRN NEB 04/24/25 16:15 05/08/25 12:13 2.5 MG Nicardipine/ Sodium Chloride 200 ml @ 50 mls/hr Q4H IV 04/25/25 09:45 Diagnostic Test (Pha) 1 strip Q6HR 04/30/25 12:00 05/10/25 17:35 1 STRIP Insulin Human Regular FOLLOW SLIDING SCALE Q6HR SC 04/30/25 12:00 05/08/25 14:29 2 UNITS Dextrose 50 ml UD IV 04/30/25 09:00 05/09/25 00:20 50 ML Lidocaine 1 patch DAILY TOP 04/30/25 10:30 05/10/25 10:18 1 PATCH Morphine Sulfate 1 mg Q6HP PRN IV 04/30/25 10:30 05/02/25 17:58 1 MG Metoprolol Tartrate 2.5 mg Q4HR PRN IV 04/30/25 11:30 05/06/25 09:11 2.5 MG Oxycodone/ Acetaminophen 1 tab Q6HP PRN PO 05/02/25 10:00 Docusate Sodium 100 mg BID PO 05/02/25 10:00 05/02/25 22:00 100 MG Propofol 100 ml @ 1.296 mls/ hr Q24H IV 05/02/25 20:45 05/10/25 12:45 6.48 MLS/HR Fentanyl Citrate 250 ml @ 2.5 mls/hr Q24H IV 05/02/25 20:45 05/09/25 11:00 2.5 MLS/HR Acetylcysteine 100 mg Q4HR NEB 05/05/25 10:00 UNV Acetylcysteine 100 mg Q6HR NEB 05/06/25 12:00 05/10/25 19:15 100 MG Ipratropium [place] 0.5 mg Q6HR NEB 05/06/25 12:00 05/10/25 19:15 0.5 MG Levalbuterol HCl 0.625 mg Q6HR NEB 05/06/25 12:00 05/10/25 19:15 0.625 MG Enoxaparin Sodium 50 mg Q12HR SC 05/07/25 22:00 05/10/25 22:48 50 MG Metoclopramide HCl 5 mg Q8HR IV 05/08/25 14:00 05/10/25 22:49 5 MG Vancomycin HCl 0 ml @ 0 mls/hr PER PHARMACY IV 05/09/25 10:30 Acetaminophen 650 mg Q6HP PRN RI 05/09/25 10:30 Meropenem 50 ml @ 17 mls/hr Q12HR IV 05/09/25 14:00 05/10/25 22:48 17 MLS/HR Vancomycin HCl 250 ml @ 200 mls/hr Q12H IV 05/09/25 18:00 Cancel Vancomycin HCl 100 ml @ 100 mls/hr Q24H IV 05/10/25 12:00 05/10/25 12:29 100 MLS/HR Potassium Acetate 60 meq/Potassium Phosphate 44 meq/ Calcium Gluconate 4.65 meq/ Magnesium Sulfate 26 meq/ Multivitamins 10 ml/Chromium/ Copper/Manganese/ Zinc 1 ml/Amino Acids/Dextrose/ Purified Water 1,217.5 ml @ 51 mls/hr [id number] IV 05/10/25 22:00 05/11/25 21:59 05/10/25 22:30 51 MLS/HR Dextrose/Sodium Chloride 1,000 ml @ 30 mls/hr Q24H IV 05/10/25 18:15 05/10/25 16:10 30 MLS/HR Laboratory Results Laboratory Tests 05/10/25 04:00 Chemistry Test 05/10/25 04:00 Albumin 2.6 g/dL (3.2-4.8) L Calcium Level 7.5 mg/dL (8.7-10.4) L Magnesium Level 2.0 mg/dL (1.6-2.6) Phosphorus Level 3.1 mg/dL (2.4-5.1) Total Protein 4.8 g/dL (5.7-8.2) L LFT Test 05/10/25 04:00 Alanine Aminotransferase (ALT) 36 U/L (7-40) Alkaline Phosphatase 99 U/L (46-116) Aspartate Amino Transferase (AST) 40 U/L (13-40) Total Bilirubin 0.3 mg/dL (0.2-1.0) Urinalysis Test 04/15/25 15:45 Urine Color Light-orange (Yellow) Urine Clarity Ex.turbid (Clear) Urine pH 5.5 (5.0-9.0) Urine Specific [place] 1.028 (1.001-1.035) Urine Protein 1+ (Negative) H Urine Ketones Negative (Negative) Urine Blood 1+ /uL (Negative) H Urine Nitrite Negative (Negative) Urine Bilirubin Negative (Negative) Urine Urobilinogen 3 mg/dL (Negative) H Urine Leukocyte Esterase Negative /uL (Negative) Urine RBC 16 /hpf (0 - 4) Urine Microscopic WBC 1 /HPF (0-5) Urine Squamous Epithelial Cells Mod /hpf (<5) Urine Amorphous Crystals Few /hpf (None Seen) Urine Bacteria Few /hpf (None Seen) H Urine Hyaline Casts Few /lpf (0 - 2) Urine Mucus Few (None Seen) Urine Glucose Normal mg/dL (Normal) Blood Gas Results Test 05/10/25 07:13 Arterial Blood pH 7.480 (7.350-7.450) FiO2 % 30.0 Microbiology Microbiology Date/Time Source Procedure Growth Status 05/09/25 11:22 Blood Blood Culture - Preliminary NO GROWTH AFTER 24 HOURS OF INCUBATION. Resulted 05/02/25 20:30 Sputum Gram Stain - Final Complete 05/02/25 20:30 Sputum Respiratory Culture - Final Complete 05/02/25 00:00 Nose MRSA Screen - Final Complete 04/30/25 14:30 Pleural Fluid Gram Stain - Final Complete 04/30/25 14:30 Pleural Fluid Body Fluid Culture - Final Complete Assessment/Plan Assessment/Plan Impression: Acute hypoxic respiratory failure On mechanical ventilator Atelectasis Lung collapse Pneumonia Hx of nicotine dependence Cachexia, BMI 17.4 Small bowel obstruction Events: Patient seen and examined at bedside. Remains on mechanical ventilator On AC mode; RR 22, VT 450, PEEP 5, FiO2 30% Sedated on Propofol On Fentanyl drip for analgesia Placed on CPAP Continue daily CPAP trials CT abdomen/pelvis revealed suspicion for ileus versus bowel obstruction given retention of contrast primarily in the proximal small bowel. Trace bilateral pleural effusions with atelectasis and consolidation of the left lower lobe. Compression deformities, favored to be chronic. Left-sided pleural effusion with suspected consolidation of the left lower lobe with air bronchograms. Patient remains NPO TPN for nutritional support Chest-abdomen x-ray today shows Nonobstructive bowel gas pattern. No visualization of contrast within large bowel loops, contrast distending all small-bowel loops despite oblique imaging. Enteric tube in the proximal stomach. Small sliding hiatal hernia. Defer to Surgery - Surgery may plan for surgical procedure due to SBO. Will await surgical clearance before proceeding to extubation. Surgery recommendations appreciated Hemoglobin trended down to 8.4 g/dL - monitor Monitor for fevers - cooling measures PRN Continue TPN for nutritional support Continue NGT to LIS - monitor output GI recs appreciated Protonix for GI ppx Continue bronchodilators Mucolytics with Mucomyst Chest percussive therapy Continue antibiotics Continue antifungals Incentive spirometry IV fluids with LR HOB elevation Aspiration precautions S/p bronchoscopy on 04/26/25 with clearance of copious secretions in L1-L10. Endobronchial lesion in left mainstem bronchus, biopsied. Follow up biopsy results. CT chest demonstrated improved aeration of left upper lobe Repeat bronchoscopy was performed on 04/30/25 with removal of mucous plugs in left lower lobe bronchus. Left thoracentesis was performed on 04/30/25 with removal of 250 mL serosanguineous fluid. Pleural fluid cultures showed no growth Labs and imaging reviewed. Rest of plan as noted below. Plan: s/p intubation on mechanical ventilator. On AC mode; RR 22, VT 450, PEEP 5, FiO2 30% Titrate FIO2 to keep O2 saturation above 90%. VAP bundle. Daily ABG and CXR while intubated Sedate for vent synchrony Pressors for hemodynamic support Titrate to keep mean arterial pressure greater than 65 mmHg Plan for surgery due to small bowel obstruction Follow up Surgery recommendations. Continue bronchodilators. Continue antibiotics Incentive spirometry Head of bed elevation Aspiration precautions NGT in place TPN for nutritional support Monitor renal function. Monitor electrolytes. Supplement as necessary. Monitor ins and outs. DVT prophylaxis. Prognosis: Poor given patient's multiple co-morbidities. Condition: Critical Rest of plan per hospitalist and other consultants. A total of 35 minutes of critical care time was spent reviewing the patient record, examining the patient, making a diagnostic and therapeutic plan, discussing this plan with the medical personnel, following up on diagnostic studies and following the patient for clinical stability excluding any and all procedures. At least 50% of this time was spent in direct, [id number] contact. Thank you, JESÚS Ford, for allowing me to participate in this patient's care. Further recommendations will depend on the patient's clinical course. Please do not hesitate to contact me if you have any questions or concerns. This medical document was created using an electronic medical record system with [employer] system. Although these documentations are being carefully reviewed, there may still be some phonetic and typographical changes. The errors are purely typographical, due to imperfection on the software program, and do not reflect any compromise in the patient's medical care. Plan discussed with: Other (KIA Delong) My Orders Orders - KARENA WESTFALL MD Procedure Category Date Status Time Abg W/ Co-Ox RT 05/10/25 Logged 06:00 Cpap Trial For Am ORDERS 05/10/25 Transmitted 10:45 Visit Coding Pulmonary Billing Provider: KARENA WESTFALL MD Date of Service if different f: May 10, 2025 Common Visit Codes: [id number] INP/OBS CARE(HIGH), [id number] CARE 30-74 MIN KARENA WESTFALL MD May 10, 2025 23:07
[2025-05-11] VITALS (110 sets, daily range): BP systolic 92–137; BP diastolic 38–77; PULSE 79–104; RESP 17–30; TEMP 97.7–98.8; O2SAT 90–100
[2025-05-11 03:58] LABS: Hematocrit 26.2 % (36.0-46.0); Hemoglobin 8.5 g/dL (12.2-16.2); Mean Corpuscular Hemoglobin 32.4 pg (28.0-32.0); Mean Corpuscular Volume 99.8 fL (80.0-100.0); Nucleated Red Blood Cells % 0.0 %
[2025-05-11 04:16] LABS: Anion Gap 7 (5-15); BUN/Creatinine Ratio 69.7 (10.0-20.0); Carbon Dioxide 28 mmol/L (20-31); Magnesium 2.2 mg/dL (1.6-2.6); Potassium 4.1 mmol/L (3.5-5.1)
[2025-05-11 04:17] LABS: Bilirubin, Total 0.3 mg/dL (0.2-1.0)
[2025-05-11 04:36] LABS: Alanine Aminotransferase 40 U/L (7-40); Albumin 2.9 g/dL (3.2-4.8); Alkaline Phosphatase 130 U/L (46-116); Blood Urea Nitrogen 23 mg/dL (9-23); Calcium 8.1 mg/dL (8.7-10.4); Chloride 111 mmol/L (98-107); Glucose 128 mg/dL (74-106); Sodium 146 mmol/L (136-145); Total Protein 5.5 g/dL (5.7-8.2)
--- NOTE | 2025-05-11 06:18 | DVH ---
EXAM: XY CHEST PORTABLE HISTORY: INTUBATED COMPARISON: XY CHEST PORTABLE on DOS: 05/08/25, XY CHEST PORTABLE on DOS: 05/07/25, XY CHEST PORTABLE on DOS: 05/06/25, XY CHEST PORTABLE on DOS: 05/05/25, XY CHEST XRAY 1 VIEW on DOS: 05/05/25 TECHNIQUE: Portable AP view of the chest was performed. FINDINGS: Endotracheal tube is re-identified with its tip 2.5 cm above the choco. OG tube and right upper extremity PICC line are re-identified. There is elevation of the left hemidiaphragm. There are bilateral lung base infiltrates, [id number], with mild worsening on both sides compared with chest x-ray performed 3 days earlier. No pneumothorax. The heart is not enlarged. The aortic arch is calcific. IMPRESSION: 1. Mechanical ventilation with tubes and lines as above. 2. Bilateral lung base infiltrates, [id number], with mild worsening compared with chest x-ray performed 3 days earlier.
[2025-05-11 07:38] LABS: Base Excess 3.1 mmol/L (-2.0-3.0)
--- NOTE | 2025-05-11 11:45 | DVHPN2 ---
Reviewed: Care Plan, H&P, Labs, Medications Changes from previous H/P or p: No Changes General: Per HPI Objective Vitals Vital Signs Date Time Temp Pulse Resp B/P (MAP) Pulse Ox O2 Delivery O2 Flow Rate FiO2 05/11/25 09:45 100/41 05/11/25 09:35 93 22 95 30 05/11/25 06:00 Mechanical Ventilator+ 05/11/25 04:15 97.7 97.7 Intake/Output Intake and Output 05/11/25 07:00 Intake Total 1920.56 ml Output Total 3725 ml Balance -1804.44 ml Intake Oral 0 ml IV Total 1920.56 ml Output Urine Total 975 ml Gastric Drainage Total 2750 ml General Appearance: Cooperative, mild distress, Other (Underlying dementia. Currently on vent) HEENT: PERRLA, Other Lungs: Other (On vent. Transmitted breath sounds bilaterally. Decreased air entry bilaterally. No wheezing. Bibasilar crackles.) Cardiovascular: Normal S1, Normal S2 Abdomen: No tenderness, No hepatospenomegaly, Other (Hypoactive bowel sounds.) Genitourinary: No Apparent Abnormalities (Grewal catheter) Musculoskeletal: Normal sensory function, Normal motor function Extremities: No edema, Normal pulses, No tenderness/swelling Neuro: Cranial nerves 3-12 NL, Other Skin: Dry, Intact, Wounds, Other (Surgical wound D&I) Psych/Mental Status: Mood NL Medications Current Medications Medications Dose Ordered Sig/Gregory Route Start Time Stop Time Status Last Admin Dose Admin Pantoprazole Sodium 40 mg DAILY IV 04/16/25 10:00 05/11/25 09:48 40 MG Amino Acids 0 ml @ 0 mls/hr PER PHARMACY IV 04/18/25 17:45 Sodium Chloride 10 ml QSHIFT@10,22 IV 04/21/25 22:00 05/11/25 09:48 10 ML Albuterol 2.5 mg Q3HPRN PRN NEB 04/24/25 16:15 05/08/25 12:13 2.5 MG Nicardipine/ Sodium Chloride 200 ml @ 50 mls/hr Q4H IV 04/25/25 09:45 Diagnostic Test (Pha) 1 strip Q6HR 04/30/25 12:00 05/11/25 05:24 1 STRIP Insulin Human Regular FOLLOW SLIDING SCALE Q6HR SC 04/30/25 12:00 05/08/25 14:29 2 UNITS Dextrose 50 ml UD IV 04/30/25 09:00 05/09/25 00:20 50 ML Lidocaine 1 patch DAILY TOP 04/30/25 10:30 05/11/25 09:48 1 PATCH Morphine Sulfate 1 mg Q6HP PRN IV 04/30/25 10:30 05/02/25 17:58 1 MG Metoprolol Tartrate 2.5 mg Q4HR PRN IV 04/30/25 11:30 05/06/25 09:11 2.5 MG Oxycodone/ Acetaminophen 1 tab Q6HP PRN PO 05/02/25 10:00 Docusate Sodium 100 mg BID PO 05/02/25 10:00 05/02/25 22:00 100 MG Propofol 100 ml @ 1.296 mls/ hr Q24H IV 05/02/25 20:45 05/11/25 00:30 6.48 MLS/HR Fentanyl Citrate 250 ml @ 2.5 mls/hr Q24H IV 05/02/25 20:45 05/11/25 06:20 7.5 MLS/HR Acetylcysteine 100 mg Q4HR NEB 05/05/25 10:00 UNV Acetylcysteine 100 mg Q6HR NEB 05/06/25 12:00 05/11/25 06:28 100 MG Ipratropium [place] 0.5 mg Q6HR NEB 05/06/25 12:00 05/11/25 06:27 0.5 MG Levalbuterol HCl 0.625 mg Q6HR NEB 05/06/25 12:00 05/11/25 06:27 0.625 MG Enoxaparin Sodium 50 mg Q12HR SC 05/07/25 22:00 05/10/25 22:48 50 MG Metoclopramide HCl 5 mg Q8HR IV 05/08/25 14:00 05/11/25 05:16 5 MG Vancomycin HCl 0 ml @ 0 mls/hr PER PHARMACY IV 05/09/25 10:30 Acetaminophen 650 mg Q6HP PRN OK 05/09/25 10:30 Meropenem 50 ml @ 17 mls/hr Q12HR IV 05/09/25 14:00 05/11/25 09:33 17 MLS/HR Vancomycin HCl 250 ml @ 200 mls/hr Q12H IV 05/09/25 18:00 Cancel Vancomycin HCl 100 ml @ 100 mls/hr Q24H IV 05/10/25 12:00 05/10/25 12:29 100 MLS/HR Potassium Acetate 60 meq/Potassium Phosphate 44 meq/ Calcium Gluconate 4.65 meq/ Magnesium Sulfate 26 meq/ Multivitamins 10 ml/Chromium/ Copper/Manganese/ Zinc 1 ml/Amino Acids/Dextrose/ Purified Water 1,217.5 ml @ 51 mls/hr [id number] IV 05/10/25 22:00 05/11/25 21:59 05/10/25 22:30 51 MLS/HR Dextrose/Sodium Chloride 1,000 ml @ 30 mls/hr Q24H IV 05/10/25 18:15 05/10/25 16:10 30 MLS/HR Potassium Acetate 60 meq/Potassium Phosphate 44 meq/ Calcium Gluconate 4.65 meq/ Magnesium Sulfate 24 meq/ Multivitamins 10 ml/Chromium/ Copper/Manganese/ Zinc 1 ml/Amino Acids/Dextrose/ Purified Water 1,267 ml @ 53 mls/hr [id number] IV 05/11/25 22:00 05/12/25 21:59 Laboratory Results Laboratory Tests 05/11/25 03:00 Chemistry Test 05/11/25 03:00 Albumin 2.9 g/dL (3.2-4.8) L Calcium Level 8.1 mg/dL (8.7-10.4) L Magnesium Level 2.2 mg/dL (1.6-2.6) Phosphorus Level 3.3 mg/dL (2.4-5.1) Total Protein 5.5 g/dL (5.7-8.2) L Lipid panel Test 05/11/25 03:00 Triglycerides Level 70 mg/dL (< 150) LFT Test 05/11/25 03:00 Alanine Aminotransferase (ALT) 40 U/L (7-40) Alkaline Phosphatase 130 U/L (46-116) H Aspartate Amino Transferase (AST) 39 U/L (13-40) Total Bilirubin 0.3 mg/dL (0.2-1.0) Urinalysis Test 04/15/25 15:45 Urine Color Light-orange (Yellow) Urine Clarity Ex.turbid (Clear) Urine pH 5.5 (5.0-9.0) Urine Specific [place] 1.028 (1.001-1.035) Urine Protein 1+ (Negative) H Urine Ketones Negative (Negative) Urine Blood 1+ /uL (Negative) H Urine Nitrite Negative (Negative) Urine Bilirubin Negative (Negative) Urine Urobilinogen 3 mg/dL (Negative) H Urine Leukocyte Esterase Negative /uL (Negative) Urine RBC 16 /hpf (0 - 4) Urine Microscopic WBC 1 /HPF (0-5) Urine Squamous Epithelial Cells Mod /hpf (<5) Urine Amorphous Crystals Few /hpf (None Seen) Urine Bacteria Few /hpf (None Seen) H Urine Hyaline Casts Few /lpf (0 - 2) Urine Mucus Few (None Seen) Urine Glucose Normal mg/dL (Normal) Blood Gas Results Test 05/11/25 07:17 Arterial Blood pH 7.465 (7.350-7.450) FiO2 % 30.0 Microbiology Microbiology Date/Time Source Procedure Growth Status 05/09/25 11:22 Blood Blood Culture - Preliminary NO GROWTH AFTER 24 HOURS OF INCUBATION. Resulted 05/02/25 20:30 Sputum Gram Stain - Final Complete 05/02/25 20:30 Sputum Respiratory Culture - Final Complete 05/02/25 00:00 Nose MRSA Screen - Final Complete 04/30/25 14:30 Pleural Fluid Gram Stain - Final Complete 04/30/25 14:30 Pleural Fluid Body Fluid Culture - Final Complete Labs and/or images reviewed: Labs reviewed by me, Image(s) reviewed by me Assessment/Plan Assessment/Plan HPI: 89-year-old female presents for evaluation of abdominal pain. Patient with dementia noted by family members to be complaining of abdominal pain for the past two days. There is no nausea or vomiting. Family also reports worsening confusion from baseline. Past Medical History Dementia, COPD, GERD, asthma 05/07: Patient currently intubated and sedated. CPAP with adequate respiratory status. KUB without any signs of ileus. NG secretions 25 mL overnight. Discussed case with Dr. Clau Cui who is agreeable for CPAP after performing a repeat KUB after having NG tube taken off suction for 5 hours. 05/08: female here with SBO, patient had come to ICU after surgery and then extubated and downgraded to [facility], had to be reintubated due to aspiration pneumonia. Currently has NG tube on intermittent suction, overnight having 150 u bilious output. Surgery today planning for oral contrast CT. Good urine output without Lasix. Feeds is getting TPN. No sedation vacation, RASS-1 to - 2. Daily CPAP trials approximately 5 hours. Vital signs stable. We will continue primary hospitalist plan. 05/09: Pulmonology continuing with CPAP trials. Patient continues to have fevers. Still having output in NG tube. We will collect blood cultures again with fevers. And escalate antibiotic therapy from Zosyn to vancomycin and meropenem. 05/10: Yesterday NG output was 1 L, this a.m. overnight NG output was 200 cc. Still significant. Abdominal x-ray showing fecal burden, trial of enema was done but no significant output received. Reglan 5 t.i.d., defer changes or increased to surgery. Surgery does not want CPAP trials. CPAP trial only for respiratory exercise, advice against extubation at this point. Given patient has significant NG output continuing. No further fevers blood cultures pending, escalation of antibiotics is working. Continue vanc and meropenem. Vancomycin per pharmacy. Urine output good, 05/11: Yesterday had small-bowel follow-through which showed obstructive still present contrast failed to pass into: 6 hours. After words doing LIS suctioned 24 hour showed 2750 cc output, likely a lot of it is the contrast. Continuing D5 half-normal 30 cc hour as patient was close to hypo glycemia, continuing TPN, patient RASS remains-1 to -2, minimal vent settings, surgery is planning for OR today for ex lap. We will continue to follow up with surgical recommendations. Continuing Mucomyst and breathing treatments q.8. Chest x-ray with the increasing opacities in bilateral lower lobes. Impression: -choledocholithiasis -acute pancreatitis -small-bowel obstruction -dementia -cachexia -sepsis -COPD -GERD -Post op delirium -Accelerated HTN -A. fib Plan: -IV Reglan 10 mg q.8 hours -add D5 NS, continue TPN -IV diuresis -being weaned sedation, attempt CPAP -Continue Zosyn -PPI -full-dose anticoagulation -continue bronchodilators, Mucomyst -repeat labs and chest x-ray in a.m. Critical care time spent with patient discussing and formulating plan of care: 40 minutes. This does not include time spent performing procedures. Plan discussed with: Patient, Other My Orders Orders - LUDIVINA RIOS MD Procedure Category Date Status Time * Wound Consult CONS 05/10/25 Transmitted D5w/Sod Chl 0.45% PHA 05/10/25 In Process (D5w 1/2ns) 18:15 Chest Portable XY 05/11/25 Resulted 05:12 Date of Service: May 11, 2025 Billing Provider: LUDIVINA RIOS MD Common Visit Codes: [id number] CARE 30-74 MIN LUDIVINA RIOS MD May 11, 2025 11:45
--- NOTE | 2025-05-11 12:29 | DVHPN2 ---
Progress Note - Dictate Date Seen: May 11, 2025 Medical Necessity Reason Pt with a Central, PICC or Fol: Yes The following are medically ne: PICC Line, Grewal Catheter Subjective Patient remains intubated and sedated Chest x-ray shows bilateral infiltrates left greater than right with slight worsening Contrast did not reach colon up to 6 hours during small-bowel series ; dilated small bowel loops Patient is having moderate amount of NG tube output over 2 L vital signs Vital Sign Date Time Temp Pulse Resp B/P (MAP) Pulse Ox O2 Delivery O2 Flow Rate FiO2 05/11/25 12:07 134/50 05/11/25 11:42 91 22 99 30 05/11/25 06:00 Mechanical Ventilator+ 05/11/25 04:15 97.7 97.7 Total Intake and Output 05/10/25 05/10/25 05/11/25 15:00 23:00 07:00 Intake Total 251.84 ml 1006.36 ml 662.36 ml Output Total 525 ml 3200 ml Balance 251.84 ml 481.36 ml -2537.64 ml medications Current Medications Medications Dose Ordered Sig/Gregory Route Start Time Stop Time Status Last Admin Dose Admin Pantoprazole Sodium 40 mg DAILY IV 04/16/25 10:00 05/11/25 09:48 40 MG Amino Acids 0 ml @ 0 mls/hr PER PHARMACY IV 04/18/25 17:45 Sodium Chloride 10 ml QSHIFT@10,22 IV 04/21/25 22:00 05/11/25 09:48 10 ML Albuterol 2.5 mg Q3HPRN PRN NEB 04/24/25 16:15 05/08/25 12:13 2.5 MG Nicardipine/ Sodium Chloride 200 ml @ 50 mls/hr Q4H IV 04/25/25 09:45 Diagnostic Test (Pha) 1 strip Q6HR 04/30/25 12:00 05/11/25 12:02 1 STRIP Insulin Human Regular FOLLOW SLIDING SCALE Q6HR SC 04/30/25 12:00 05/08/25 14:29 2 UNITS Dextrose 50 ml UD IV 04/30/25 09:00 05/09/25 00:20 50 ML Lidocaine 1 patch DAILY TOP 04/30/25 10:30 05/11/25 09:48 1 PATCH Morphine Sulfate 1 mg Q6HP PRN IV 04/30/25 10:30 05/02/25 17:58 1 MG Metoprolol Tartrate 2.5 mg Q4HR PRN IV 04/30/25 11:30 05/06/25 09:11 2.5 MG Oxycodone/ Acetaminophen 1 tab Q6HP PRN PO 05/02/25 10:00 Docusate Sodium 100 mg BID PO 05/02/25 10:00 05/02/25 22:00 100 MG Propofol 100 ml @ 1.296 mls/ hr Q24H IV 05/02/25 20:45 05/11/25 12:07 1.296 MLS/HR Fentanyl Citrate 250 ml @ 2.5 mls/hr Q24H IV 05/02/25 20:45 05/11/25 06:20 7.5 MLS/HR Acetylcysteine 100 mg Q4HR NEB 05/05/25 10:00 UNV Enoxaparin Sodium 50 mg Q12HR SC 05/07/25 22:00 05/10/25 22:48 50 MG Metoclopramide HCl 5 mg Q8HR IV 05/08/25 14:00 05/11/25 05:16 5 MG Vancomycin HCl 0 ml @ 0 mls/hr PER PHARMACY IV 05/09/25 10:30 Acetaminophen 650 mg Q6HP PRN [place] 05/09/25 10:30 Meropenem 50 ml @ 17 mls/hr Q12HR IV 05/09/25 14:00 05/11/25 09:33 17 MLS/HR Vancomycin HCl 250 ml @ 200 mls/hr Q12H IV 05/09/25 18:00 Cancel Vancomycin HCl 100 ml @ 100 mls/hr Q24H IV 05/10/25 12:00 05/11/25 12:03 100 MLS/HR Potassium Acetate 60 meq/Potassium Phosphate 44 meq/ Calcium Gluconate 4.65 meq/ Magnesium Sulfate 26 meq/ Multivitamins 10 ml/Chromium/ Copper/Manganese/ Zinc 1 ml/Amino Acids/Dextrose/ Purified Water 1,217.5 ml @ 51 mls/hr [id number] IV 05/10/25 22:00 05/11/25 21:59 05/10/25 22:30 51 MLS/HR Dextrose/Sodium Chloride 1,000 ml @ 30 mls/hr Q24H IV 05/10/25 18:15 11/8/25 16:10 30 MLS/HR Potassium Acetate 60 meq/Potassium Phosphate 44 meq/ Calcium Gluconate 4.65 meq/ Magnesium Sulfate 24 meq/ Multivitamins 10 ml/Chromium/ Copper/Manganese/ Zinc 1 ml/Amino Acids/Dextrose/ Purified Water 1,267 ml @ 53 mls/hr [id number] IV 05/11/25 22:00 05/12/25 21:59 Levalbuterol HCl 0.625 mg Q8HR NEB 05/11/25 14:00 Ipratropium [place] 0.5 mg Q8HR NEB 05/11/25 14:00 Acetylcysteine 100 mg Q8HR NEB 05/11/25 14:00 objective General Appearance: Alert, Cooperative, no distress HEENT: PERRLA, EOMI Lungs: Decreased breath sound on left lower lung. High-flow at 50% FiO2 Cardiovascular: Normal S1, Normal S2 Abdomen: No tenderness, No hepatospenomegaly, hypoactive bowel sounds, surgical wound dry Genitourinary: No Apparent Abnormalities (Grewal catheter) Musculoskeletal: Normal sensory function, Normal motor function Extremities: No edema, Normal pulses, No tenderness/swelling laboratory and microbiology Laboratory Tests 05/11/25 03:00 Test 05/11/25 03:00 Range/Units Serum Glucose 128 H 74-106 mg/dL Problems(with codes): (1) Small bowel obstruction (2) COPD (chronic obstructive pulmonary disease) Prognosis Yesterday had small-bowel follow-through which showed obstructive still present contrast failed to pass into: 6 hours. After words doing LIS suctioned 24 hour showed 2750 cc output, likely a lot of it is the contrast. Continuing D5 half-normal 30 cc hour as patient was close to hypo glycemia, continuing TPN, IV Abx patient RASS remains-1 to -2, minimal vent settings, Surgery is planning for OR today for ex lap. We will continue to follow up with surgical recommendations. Continuing Mucomyst and breathing treatments q.8. Chest x-ray with the increasing opacities in bilateral lower lobes. Dietary Evaluation Review Recommendations by RD: PPN/TPN Comments: 1) Increase TPN to meet at least 75% estimated daily needs 2) Advance to cardiac diet when medically feasible 3) Follow-up with gastroenterology and neurology 4) Continue to monitor I&O, labs, and skin integrity Expected Outcomes/Goals: 1) nutrition support to meet at least 75% estimated daily needs 2) labs to improve 3) diet to advance 4) gradual wt gain 5) f/u in 2-3 days Plan discussed with: Other (ICU Nurse ) JIL MCNEAL MD May 11, 2025 12:29
[2025-05-11] MEDS: IPRATROPIUM BROM 0.5 MG/2.5ML INH SOL NEB SCH (14:18)
[2025-05-11] MEDS: LEVALBUTEROL HCL 1.25 MG/3 ML NEB NEB SCH (14:18)
[2025-05-11] MEDS: ACETYLCYSTEINE 10 %(100MG/ML) SOL 4ML NEB SCH (14:19)
[2025-05-11 15:09] LABS: Urine Protein, UAD Negative (Negative)
--- NOTE | 2025-05-11 17:45 | DVH ---
Date: 05/11/2025 05:08 PM Examination: XY KUB ABDOMEN SINGLE VIEW History: POSSIBLE SBO Comparison: XY KUB ABDOMEN SINGLE VIEW on DOS: 05/10/25, XY KUB ABDOMEN SINGLE VIEW on DOS: 05/09/25, XY KUB ABDOMEN SINGLE VIEW on DOS: 05/07/25 TECHNIQUE: Frontal views of the abdomen was obtained. FINDINGS: Bowel gas pattern is unremarkable. The lung bases are unremarkable. No acute osseous abnormality identified. Compression fracture of T10 probable old correlate with the clinical history. Mild compression of L3 age indeterminate. Correlate with clinical symptomatology and history of trauma IMPRESSION: 1. Contrast noted bowel in the right lower quadrant. 2. No findings of abnormally distended small bowel or colon. 3. Bilateral bipolar hip prostheses. 4. Compression fractures of T10 and L3 age indeterminate. Correlate with clinical history. .
[2025-05-11] MEDS: METOCLOPRAMIDE HCL 5MG/ml INJ 2ml VIAL IV SCH (18:25)
[2025-05-11] MEDS: TPN PER PHARMACY IV NR (21:58)
--- NOTE | 2025-05-11 23:38 | DVHPN2 ---
Subjective DOS: 05/11/2025 Patient seen and examined at bedside. Sedated, intubated on mechanical ventilator. Overnight events reviewed. Reviewed: Care Plan, H&P, Labs, Medications Changes from previous H/P or p: No Changes General: Per HPI Objective Vitals Vital Signs Date Time Temp Pulse Resp B/P (MAP) Pulse Ox O2 Delivery O2 Flow Rate FiO2 05/11/25 22:51 81 22 115/48 (70) 97 30 05/11/25 21:47 Mechanical Ventilator+ 05/11/25 20:00 98.7 98.7 Intake/Output Intake and Output 05/11/25 07:00 Intake Total 1927.04 ml Output Total 3725 ml Balance -1797.96 ml Intake Oral 0 ml IV Total 1927.04 ml Output Urine Total 975 ml Gastric Drainage Total 2750 ml General Appearance: Cooperative, mild distress, Other (Underlying dementia. Currently on vent) HEENT: PERRLA, Other Lungs: Other (On vent. Transmitted breath sounds bilaterally. Decreased air entry bilaterally. No wheezing. Bibasilar crackles.) Cardiovascular: Normal S1, Normal S2 Abdomen: No tenderness, No hepatospenomegaly, Other (Hypoactive bowel sounds.) Genitourinary: No Apparent Abnormalities (Grewal catheter) Musculoskeletal: Normal sensory function, Normal motor function Extremities: No edema, Normal pulses, No tenderness/swelling Neuro: Cranial nerves 3-12 NL, Other Skin: Dry, Intact, Wounds, Other (Surgical wound D&I) Psych/Mental Status: Mood NL Medications Current Medications Medications Dose Ordered Sig/Gregory Route Start Time Stop Time Status Last Admin Dose Admin Pantoprazole Sodium 40 mg DAILY IV 04/16/25 10:00 05/11/25 09:48 40 MG Amino Acids 0 ml @ 0 mls/hr PER PHARMACY IV 04/18/25 17:45 Sodium Chloride 10 ml QSHIFT@10,22 IV 04/21/25 22:00 05/11/25 21:57 10 ML Albuterol 2.5 mg Q3HPRN PRN NEB 04/24/25 16:15 05/08/25 12:13 2.5 MG Nicardipine/ Sodium Chloride 200 ml @ 50 mls/hr Q4H IV 04/25/25 09:45 Diagnostic Test (Pha) 1 strip Q6HR 04/30/25 12:00 05/11/25 18:07 1 STRIP Insulin Human Regular FOLLOW SLIDING SCALE Q6HR SC 04/30/25 12:00 05/08/25 14:29 2 UNITS Dextrose 50 ml UD IV 04/30/25 09:00 05/09/25 00:20 50 ML Lidocaine 1 patch DAILY TOP 04/30/25 10:30 05/11/25 09:48 1 PATCH Morphine Sulfate 1 mg Q6HP PRN IV 04/30/25 10:30 05/02/25 17:58 1 MG Metoprolol Tartrate 2.5 mg Q4HR PRN IV 04/30/25 11:30 05/06/25 09:11 2.5 MG Oxycodone/ Acetaminophen 1 tab Q6HP PRN PO 05/02/25 10:00 Docusate Sodium 100 mg BID PO 05/02/25 10:00 05/02/25 22:00 100 MG Propofol 100 ml @ 1.296 mls/ hr Q24H IV 05/02/25 20:45 05/11/25 19:44 6.48 MLS/HR Fentanyl Citrate 250 ml @ 2.5 mls/hr Q24H IV 05/02/25 20:45 05/11/25 06:20 7.5 MLS/HR Acetylcysteine 100 mg Q4HR NEB 05/05/25 10:00 UNV Enoxaparin Sodium 50 mg Q12HR SC 05/07/25 22:00 05/11/25 21:57 50 MG Vancomycin HCl 0 ml @ 0 mls/hr PER PHARMACY IV 05/09/25 10:30 Acetaminophen 650 mg Q6HP PRN [place] 05/09/25 10:30 Meropenem 50 ml @ 17 mls/hr Q12HR IV 05/09/25 14:00 05/11/25 21:57 17 MLS/HR Vancomycin HCl 250 ml @ 200 mls/hr Q12H IV 05/09/25 18:00 Cancel Vancomycin HCl 100 ml @ 100 mls/hr Q24H IV 05/10/25 12:00 05/11/25 12:03 100 MLS/HR Dextrose/Sodium Chloride 1,000 ml @ 30 mls/hr Q24H IV 05/10/25 18:15 05/10/25 16:10 30 MLS/HR Potassium Acetate 60 meq/Potassium Phosphate 44 meq/ Calcium Gluconate 4.65 meq/ Magnesium Sulfate 24 meq/ Multivitamins 10 ml/Chromium/ Copper/Manganese/ Zinc 1 ml/Amino Acids/Dextrose/ Purified Water 1,267 ml @ 53 mls/hr [id number] IV 05/11/25 22:00 05/12/25 21:59 05/11/25 21:58 53 MLS/HR Levalbuterol HCl 0.625 mg Q8HR NEB 05/11/25 14:00 05/11/25 18:29 0.625 MG Ipratropium [place] 0.5 mg Q8HR NEB 05/11/25 14:00 05/11/25 18:29 0.5 MG Acetylcysteine 100 mg Q8HR NEB 05/11/25 14:00 05/11/25 14:19 100 MG Metoclopramide HCl 5 mg Q8H IV 05/11/25 18:00 05/11/25 18:25 5 MG Laboratory Results Laboratory Tests 05/11/25 03:00 Chemistry Test 05/11/25 03:00 Albumin 2.9 g/dL (3.2-4.8) L Calcium Level 8.1 mg/dL (8.7-10.4) L Magnesium Level 2.2 mg/dL (1.6-2.6) Phosphorus Level 3.3 mg/dL (2.4-5.1) Total Protein 5.5 g/dL (5.7-8.2) L Lipid panel Test 05/11/25 03:00 Triglycerides Level 70 mg/dL (< 150) LFT Test 05/11/25 03:00 Alanine Aminotransferase (ALT) 40 U/L (7-40) Alkaline Phosphatase 130 U/L (46-116) H Aspartate Amino Transferase (AST) 39 U/L (13-40) Total Bilirubin 0.3 mg/dL (0.2-1.0) Urinalysis Test 04/15/25 15:45 05/11/25 14:35 Urine Amorphous Crystals Few /hpf (None Seen) Urine Hyaline Casts Few /lpf (0 - 2) Urine Mucus Few (None Seen) Urine Color Light-yellow (Yellow) Urine Clarity Clear (Clear) Urine pH 7.0 (5.0-9.0) Urine Specific [place] 1.021 (1.001-1.035) Urine Protein Negative (Negative) Urine Ketones Negative (Negative) Urine Blood 1+ /uL (Negative) H Urine Nitrite Negative (Negative) Urine Bilirubin Negative (Negative) Urine Urobilinogen Normal mg/dL (Negative) Urine Leukocyte Esterase Negative /uL (Negative) Urine RBC 55 /hpf (0 - 4) Urine Microscopic WBC 1 /HPF (0-5) Urine Squamous Epithelial Cells Few /hpf (<5) Urine Bacteria None seen /hpf (None Seen) Urine Glucose Normal mg/dL (Normal) Blood Gas Results Test 05/11/25 07:17 Arterial Blood pH 7.465 (7.350-7.450) FiO2 % 30.0 Microbiology Microbiology Date/Time Source Procedure Growth Status 05/09/25 11:22 Blood Blood Culture - Preliminary NO GROWTH AFTER 48 HOURS OF INCUBATION. Resulted 05/02/25 20:30 Sputum Gram Stain - Final Complete 05/02/25 20:30 Sputum Respiratory Culture - Final Complete 05/02/25 00:00 Nose MRSA Screen - Final Complete 04/30/25 14:30 Pleural Fluid Gram Stain - Final Complete 04/30/25 14:30 Pleural Fluid Body Fluid Culture - Final Complete Assessment/Plan Assessment/Plan Impression: Acute hypoxic respiratory failure On mechanical ventilator Atelectasis Lung collapse Pneumonia Hx of nicotine dependence Cachexia, BMI 17.4 Small bowel obstruction Events: Patient seen and examined at bedside. Remains on mechanical ventilator On AC mode; RR 22, VT 450, PEEP 5, FiO2 30% Sedated on Propofol On Fentanyl drip for analgesia Chest x-ray shows increasing opacities in bilateral lower lobes. Surgery is planning for OR today for ex lap. Follow up with surgical recommendations. CT abdomen/pelvis revealed suspicion for ileus versus bowel obstruction given retention of contrast primarily in the proximal small bowel. Trace bilateral pleural effusions with atelectasis and consolidation of the left lower lobe. Chronic ompression deformities. Left-sided pleural effusion with suspected consolidation of the left lower lobe with air bronchograms. Contrast did not reach colon up to 6 hours during small-bowel series ; dilated small bowel loops. Patient remains NPO TPN for nutritional support Awaiting family meeting for discussion on goals of care. Continue daily CPAP trials Will await surgical clearance before proceeding to extubation. Hemoglobin stable at 8.5 g/dL - monitor Monitor for fevers - cooling measures PRN Continue TPN for nutritional support Continue NGT to LIS - monitor output GI recs appreciated Protonix for GI ppx Continue bronchodilators Mucolytics with Mucomyst Chest percussive therapy Continue antibiotics Continue antifungals Incentive spirometry Continue IV fluids with D5-LR Supportive care. HOB elevation Aspiration precautions S/p bronchoscopy on 04/26/25 with clearance of copious secretions in L1-L10. Endobronchial lesion in left mainstem bronchus, biopsied. Follow up biopsy results. CT chest demonstrated improved aeration of left upper lobe Repeat bronchoscopy was performed on 04/30/25 with removal of mucous plugs in left lower lobe bronchus. Left thoracentesis was performed on 04/30/25 with removal of 250 mL serosanguineous fluid. Pleural fluid cultures showed no growth Labs and imaging reviewed. Rest of plan as noted below. Plan: s/p intubation on mechanical ventilator. On AC mode; RR 22, VT 450, PEEP 5, FiO2 30% Titrate FIO2 to keep O2 saturation above 90%. VAP bundle. Daily ABG and CXR while intubated Sedate for vent synchrony Pressors for hemodynamic support Titrate to keep mean arterial pressure greater than 65 mmHg Plan for surgery due to small bowel obstruction Follow up Surgery recommendations. Continue bronchodilators. Continue antibiotics Incentive spirometry Head of bed elevation Aspiration precautions NGT in place TPN for nutritional support Monitor renal function. Monitor electrolytes. Supplement as necessary. Monitor ins and outs. DVT prophylaxis. Prognosis: Poor given patient's multiple co-morbidities. Condition: Critical Rest of plan per hospitalist and other consultants. A total of 35 minutes of critical care time was spent reviewing the patient record, examining the patient, making a diagnostic and therapeutic plan, discussing this plan with the medical personnel, following up on diagnostic studies and following the patient for clinical stability excluding any and all procedures. At least 50% of this time was spent in direct, [id number] contact. Thank you, JESÚS Ford, for allowing me to participate in this patient's care. Further recommendations will depend on the patient's clinical course. Please do not hesitate to contact me if you have any questions or concerns. This medical document was created using an electronic medical record system with [employer] system. Although these documentations are being carefully reviewed, there may still be some phonetic and typographical changes. The errors are purely typographical, due to imperfection on the software program, and do not reflect any compromise in the patient's medical care. Plan discussed with: Other (KIA Delong) My Orders Orders - KARENA WESTFALL MD Procedure Category Date Status Time Abg W/ Co-Ox RT 05/11/25 Logged 06:00 Cpap Trial For Am ORDERS 05/11/25 Transmitted 05:25 Visit Coding Pulmonary Billing Provider: KARENA WESTFALL MD Date of Service if different f: May 11, 2025 Common Visit Codes: 53157-[id number] INP/OBS CARE(HIGH), 70904-[id number] CARE 30-74 MIN KARENA WESTFALL MD May 11, 2025 23:38
[2025-05-12] VITALS (113 sets, daily range): BP systolic 90–135; BP diastolic 38–73; PULSE 76–103; RESP 14–30; TEMP 98.4–99.5; O2SAT 90–100
[2025-05-12 03:37] LABS: Hematocrit 25.4 % (36.0-46.0); Hemoglobin 8.5 g/dL (12.2-16.2); Mean Corpuscular Hemoglobin 33.5 pg (28.0-32.0); Mean Corpuscular Volume 99.6 fL (80.0-100.0); Nucleated Red Blood Cells % 0.2 %
[2025-05-12 03:52] LABS: Anion Gap 7 (5-15); BUN/Creatinine Ratio 83.9 (10.0-20.0); Carbon Dioxide 27 mmol/L (20-31); Magnesium 2.1 mg/dL (1.6-2.6); Potassium 4.7 mmol/L (3.5-5.1); Sodium 141 mmol/L (136-145)
[2025-05-12 03:53] LABS: Bilirubin, Total 0.4 mg/dL (0.2-1.0)
[2025-05-12 03:58] LABS: Alanine Aminotransferase 49 U/L (7-40); Albumin 2.9 g/dL (3.2-4.8); Alkaline Phosphatase 143 U/L (46-116); Blood Urea Nitrogen 26 mg/dL (9-23); Calcium 7.8 mg/dL (8.7-10.4); Chloride 107 mmol/L (98-107); Glucose 114 mg/dL (74-106); Total Protein 5.5 g/dL (5.7-8.2)
[2025-05-12 05:52] LABS: INR 1.01 (0.9-1.15); Partial Thromboplastin Time 31.5 SEC (24.5-34.5); Prothrombin Time 10.7 sec (9.3-11.8)
--- NOTE | 2025-05-12 06:04 | DVH ---
ABDOMINAL RADIOGRAPH Indication: surgery Technique: Single frontal view of the abdomen was obtained Comparison: XY KUB ABDOMEN SINGLE VIEW on DOS: 05/11/25. FINDINGS: Lines and tubes: Is an enteric tube with its tip terminating Contrast noted in the descending and sigmoid colon. There is a nonobstructive bowel gas pattern. No supine radiographic evidence of pneumoperitoneum. Bilateral hip replacements. IMPRESSION: 1. Enteric tube with its tip terminating in the sigmoid colon. 2. Contrast in the descending and sigmoid colon.
[2025-05-12 06:54] LABS: Base Excess 1.5 mmol/L (-2.0-3.0)
--- NOTE | 2025-05-12 07:46 | DVHPN2 ---
Progress Note Date Seen: May 12, 2025 Medical Necessity Reason Pt with a Central, PICC or Fol: Yes The following are medically ne: PICC Line, Grewal Catheter Objective vital signs Vital Sign Date Time Temp Pulse Resp B/P (MAP) Pulse Ox O2 Delivery O2 Flow Rate FiO2 05/12/25 07:25 85 22 118/53 (74) 96 30 05/12/25 05:54 Mechanical Ventilator+ 05/12/25 04:00 99.5 99.5 Total Intake and Output 05/11/25 05/11/25 05/12/25 15:00 23:00 07:00 Intake Total 201.84 ml 478.544 ml 709.472 ml Output Total 600 ml 660 ml Balance 201.84 ml -121.456 ml 49.472 ml medications Current Medications Medications Dose Ordered Sig/Gregory Route Start Time Stop Time Status Last Admin Dose Admin Pantoprazole Sodium 40 mg DAILY IV 04/16/25 10:00 05/11/25 09:48 40 MG Amino Acids 0 ml @ 0 mls/hr PER PHARMACY IV 04/18/25 17:45 Sodium Chloride 10 ml QSHIFT@10,22 IV 04/21/25 22:00 05/11/25 21:57 10 ML Albuterol 2.5 mg Q3HPRN PRN NEB 04/24/25 16:15 05/08/25 12:13 2.5 MG Nicardipine/ Sodium Chloride 200 ml @ 50 mls/hr Q4H IV 04/25/25 09:45 Diagnostic Test (Pha) 1 strip Q6HR 04/30/25 12:00 05/12/25 06:10 1 STRIP Insulin Human Regular FOLLOW SLIDING SCALE Q6HR SC 04/30/25 12:00 05/08/25 14:29 2 UNITS Dextrose 50 ml UD IV 04/30/25 09:00 05/09/25 00:20 50 ML Lidocaine 1 patch DAILY TOP 04/30/25 10:30 05/11/25 09:48 1 PATCH Morphine Sulfate 1 mg Q6HP PRN IV 04/30/25 10:30 05/02/25 17:58 1 MG Metoprolol Tartrate 2.5 mg Q4HR PRN IV 04/30/25 11:30 05/06/25 09:11 2.5 MG Oxycodone/ Acetaminophen 1 tab Q6HP PRN PO 05/02/25 10:00 Docusate Sodium 100 mg BID PO 05/02/25 10:00 05/02/25 22:00 100 MG Propofol 100 ml @ 1.296 mls/ hr Q24H IV 05/02/25 20:45 05/11/25 19:44 6.48 MLS/HR Fentanyl Citrate 250 ml @ 2.5 mls/hr Q24H IV 05/02/25 20:45 05/11/25 06:20 7.5 MLS/HR Acetylcysteine 100 mg Q4HR NEB 05/05/25 10:00 UNV Enoxaparin Sodium 50 mg Q12HR SC 05/07/25 22:00 05/11/25 21:57 50 MG Vancomycin HCl 0 ml @ 0 mls/hr PER PHARMACY IV 05/09/25 10:30 Acetaminophen 650 mg Q6HP PRN [place] 05/09/25 10:30 Meropenem 50 ml @ 17 mls/hr Q12HR IV 05/09/25 14:00 05/11/25 21:57 17 MLS/HR Vancomycin HCl 250 ml @ 200 mls/hr Q12H IV 05/09/25 18:00 Cancel Vancomycin HCl 100 ml @ 100 mls/hr Q24H IV 05/10/25 12:00 05/11/25 12:03 100 MLS/HR Dextrose/Sodium Chloride 1,000 ml @ 30 mls/hr Q24H IV 05/10/25 18:15 05/10/25 16:10 30 MLS/HR Potassium Acetate 60 meq/Potassium Phosphate 44 meq/ Calcium Gluconate 4.65 meq/ Magnesium Sulfate 24 meq/ Multivitamins 10 ml/Chromium/ Copper/Manganese/ Zinc 1 ml/Amino Acids/Dextrose/ Purified Water 1,267 ml @ 53 mls/hr [id number] IV 05/11/25 22:00 05/12/25 21:59 05/11/25 21:58 53 MLS/HR Levalbuterol HCl 0.625 mg Q8HR NEB 05/11/25 14:00 05/12/25 06:32 0.625 MG Ipratropium [place] 0.5 mg Q8HR NEB 05/11/25 14:00 05/12/25 06:32 0.5 MG Acetylcysteine 100 mg Q8HR NEB 05/11/25 14:00 05/12/25 06:00 100 MG Metoclopramide HCl 5 mg Q8H IV 05/11/25 18:00 05/12/25 01:29 5 MG laboratory and microbiology Laboratory Tests 05/12/25 02:52 Test 05/12/25 02:52 Range/Units Serum Glucose 114 H 74-106 mg/dL Microbiology Date/Time Source Procedure Growth Status 05/09/25 11:22 Blood Blood Culture - Preliminary NO GROWTH AFTER 48 HOURS OF INCUBATION. Resulted 05/02/25 20:30 Sputum Gram Stain - Final Complete 05/02/25 20:30 Sputum Respiratory Culture - Final Complete 05/02/25 00:00 Nose MRSA Screen - Final Complete 04/30/25 14:30 Pleural Fluid Gram Stain - Final Complete 04/30/25 14:30 Pleural Fluid Body Fluid Culture - Final Complete Problem List/Assessment/Plan Problem List/Assessment/Plan AFEBRILE VSS REMAINS INTUBATED OG IN PLACE NO DRAINAGE ABD SOFT NON TENDER NO BM WOUND DRESSING DRY KUB THIS AM CONTRAST IN SIGMOID COLON, NO BOWEL OBSTRUCTIVE PATTERN KEEP NPO HOLD ON PLANNED EMERGENT SURGERY CLAMP NG CLOSE OBSERVATION CONTINUE SUPPORTIVE CARE FAMILY AWARE OF PT CONDITION AND AGREES WITH THE PLAN NURSE AT BEDSIDE ONGOING PULM EVAL CONSIDER EMERGENT SURGERY BASED ON ONGOING EVAL Plan discussed with: Other My Orders My Orders Orders - GLORIA MCNEAL MD Procedure Category Date Status Time Obtain Consent For: ORDERS 05/11/25 Transmitted 09:14 Obtain Consent For SAGE 05/11/25 In Process Anesthesia 09:14 Kub Abdomen Single XY 05/11/25 Resulted View 17:04 Kub Abdomen Single XY 05/12/25 Resulted View 05:00 Dietary Evaluation Review Recommendations by RD: PPN/TPN Comments: 1) Increase TPN to meet at least 75% estimated daily needs 2) Advance to cardiac diet when medically feasible 3) Follow-up with gastroenterology and neurology 4) Continue to monitor I&O, labs, and skin integrity Expected Outcomes/Goals: 1) nutrition support to meet at least 75% estimated daily needs 2) labs to improve 3) diet to advance 4) gradual wt gain 5) f/u in 2-3 days GLORIA MCNEAL MD May 12, 2025 07:46
--- NOTE | 2025-05-12 08:04 | ECG ---
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
--- NOTE | 2025-05-12 09:10 | DVHPN2 ---
Subjective Intubated and sedated Reviewed: Care Plan, H&P, Labs, Medications Changes from previous H/P or p: No Changes General: Per HPI Objective Vitals Vital Signs Date Time Temp Pulse Resp B/P (MAP) Pulse Ox O2 Delivery O2 Flow Rate FiO2 05/12/25 07:30 24 97 Mechanical Ventilator+ 30 30 05/12/25 07:30 85 05/12/25 07:25 118/53 (74) 05/12/25 04:00 99.5 99.5 Intake/Output Intake and Output 05/12/25 07:00 Intake Total 1389.856 ml Output Total 1260 ml Balance 129.856 ml IV Total 1389.856 ml Output Urine Total 1250 ml Gastric Drainage Total 10 ml General Appearance: mild distress, Other (Intubated and sedated) HEENT: Atraumatic, PERRLA, Other Lungs: Other (On vent. Transmitted breath sounds bilaterally. Decreased air entry bilaterally. No wheezing. Bibasilar crackles.) Cardiovascular: Normal S1, Normal S2 Abdomen: No tenderness, No hepatospenomegaly, Other (Hypoactive bowel sounds.) Genitourinary: No Apparent Abnormalities (Grewal catheter) Musculoskeletal: Normal sensory function, Normal motor function Extremities: No edema, Normal pulses, No tenderness/swelling Neuro: Cranial nerves 3-12 NL, Other Skin: Dry, Intact, Wounds, Other (Surgical wound D&I) Psych/Mental Status: Mood NL Medications Current Medications Medications Dose Ordered Sig/Gregory Route Start Time Stop Time Status Last Admin Dose Admin Pantoprazole Sodium 40 mg DAILY IV 04/16/25 10:00 05/11/25 09:48 40 MG Amino Acids 0 ml @ 0 mls/hr PER PHARMACY IV 04/18/25 17:45 Sodium Chloride 10 ml QSHIFT@10,22 IV 04/21/25 22:00 05/11/25 21:57 10 ML Albuterol 2.5 mg Q3HPRN PRN NEB 04/24/25 16:15 05/08/25 12:13 2.5 MG Nicardipine/ Sodium Chloride 200 ml @ 50 mls/hr Q4H IV 04/25/25 09:45 Diagnostic Test (Pha) 1 strip Q6HR 04/30/25 12:00 05/12/25 06:10 1 STRIP Insulin Human Regular FOLLOW SLIDING SCALE Q6HR SC 04/30/25 12:00 05/08/25 14:29 2 UNITS Dextrose 50 ml UD IV 04/30/25 09:00 05/09/25 00:20 50 ML Lidocaine 1 patch DAILY TOP 04/30/25 10:30 05/11/25 09:48 1 PATCH Morphine Sulfate 1 mg Q6HP PRN IV 04/30/25 10:30 05/02/25 17:58 1 MG Metoprolol Tartrate 2.5 mg Q4HR PRN IV 04/30/25 11:30 05/06/25 09:11 2.5 MG Oxycodone/ Acetaminophen 1 tab Q6HP PRN PO 05/02/25 10:00 Docusate Sodium 100 mg BID PO 05/02/25 10:00 05/02/25 22:00 100 MG Propofol 100 ml @ 1.296 mls/ hr Q24H IV 05/02/25 20:45 05/11/25 19:44 6.48 MLS/HR Fentanyl Citrate 250 ml @ 2.5 mls/hr Q24H IV 05/02/25 20:45 05/11/25 06:20 7.5 MLS/HR Acetylcysteine 100 mg Q4HR NEB 05/05/25 10:00 UNV Enoxaparin Sodium 50 mg Q12HR SC 05/07/25 22:00 05/11/25 21:57 50 MG Vancomycin HCl 0 ml @ 0 mls/hr PER PHARMACY IV 05/09/25 10:30 Acetaminophen 650 mg Q6HP PRN ND 05/09/25 10:30 Meropenem 50 ml @ 17 mls/hr Q12HR IV 05/09/25 14:00 05/11/25 21:57 17 MLS/HR Vancomycin HCl 250 ml @ 200 mls/hr Q12H IV 05/09/25 18:00 Cancel Vancomycin HCl 100 ml @ 100 mls/hr Q24H IV 05/10/25 12:00 05/11/25 12:03 100 MLS/HR Dextrose/Sodium Chloride 1,000 ml @ 30 mls/hr Q24H IV 05/10/25 18:15 05/10/25 16:10 30 MLS/HR Potassium Acetate 60 meq/Potassium Phosphate 44 meq/ Calcium Gluconate 4.65 meq/ Magnesium Sulfate 24 meq/ Multivitamins 10 ml/Chromium/ Copper/Manganese/ Zinc 1 ml/Amino Acids/Dextrose/ Purified Water 1,267 ml @ 53 mls/hr [id number] IV 05/11/25 22:00 05/12/25 21:59 05/11/25 21:58 53 MLS/HR Levalbuterol HCl 0.625 mg Q8HR NEB 05/11/25 14:00 05/12/25 06:32 0.625 MG Ipratropium [place] 0.5 mg Q8HR NEB 05/11/25 14:00 05/12/25 06:32 0.5 MG Acetylcysteine 100 mg Q8HR NEB 05/11/25 14:00 05/12/25 06:00 100 MG Metoclopramide HCl 5 mg Q8H IV 05/11/25 18:00 05/12/25 01:29 5 MG Laboratory Results Laboratory Tests 05/12/25 02:52 Chemistry Test 05/12/25 02:52 Albumin 2.9 g/dL (3.2-4.8) L Calcium Level 7.8 mg/dL (8.7-10.4) L Magnesium Level 2.1 mg/dL (1.6-2.6) Phosphorus Level 3.7 mg/dL (2.4-5.1) Total Protein 5.5 g/dL (5.7-8.2) L Coagulation Test 05/12/25 05:27 Prothrombin Time 10.7 sec (9.3-11.8) Prothrombin Time INR 1.01 (0.9-1.15) Activated Partial Thromboplast Time 31.5 SEC (24.5-34.5) LFT Test 05/12/25 02:52 Alanine Aminotransferase (ALT) 49 U/L (7-40) H Alkaline Phosphatase 143 U/L (46-116) H Aspartate Amino Transferase (AST) 46 U/L (13-40) H Total Bilirubin 0.4 mg/dL (0.2-1.0) Urinalysis Test 04/15/25 15:45 05/11/25 14:35 Urine Amorphous Crystals Few /hpf (None Seen) Urine Hyaline Casts Few /lpf (0 - 2) Urine Mucus Few (None Seen) Urine Color Light-yellow (Yellow) Urine Clarity Clear (Clear) Urine pH 7.0 (5.0-9.0) Urine Specific [place] 1.021 (1.001-1.035) Urine Protein Negative (Negative) Urine Ketones Negative (Negative) Urine Blood 1+ /uL (Negative) H Urine Nitrite Negative (Negative) Urine Bilirubin Negative (Negative) Urine Urobilinogen Normal mg/dL (Negative) Urine Leukocyte Esterase Negative /uL (Negative) Urine RBC 55 /hpf (0 - 4) Urine Microscopic WBC 1 /HPF (0-5) Urine Squamous Epithelial Cells Few /hpf (<5) Urine Bacteria None seen /hpf (None Seen) Urine Glucose Normal mg/dL (Normal) Blood Gas Results Test 05/12/25 06:47 Arterial Blood pH 7.453 (7.350-7.450) FiO2 % 30.0 Microbiology Microbiology Date/Time Source Procedure Growth Status 05/09/25 11:22 Blood Blood Culture - Preliminary NO GROWTH AFTER 48 HOURS OF INCUBATION. Resulted 05/02/25 20:30 Sputum Gram Stain - Final Complete 05/02/25 20:30 Sputum Respiratory Culture - Final Complete 05/02/25 00:00 Nose MRSA Screen - Final Complete 04/30/25 14:30 Pleural Fluid Gram Stain - Final Complete 04/30/25 14:30 Pleural Fluid Body Fluid Culture - Final Complete Labs and/or images reviewed: Labs reviewed by me, Image(s) reviewed by me Assessment/Plan Assessment/Plan Impression: -choledocholithiasis -acute pancreatitis -small-bowel obstruction -dementia -cachexia -sepsis -COPD -GERD -Post op delirium -Accelerated HTN -A. fib Plan: Events: Hypoactive Bowel sounds. Sedation to be weaned. Repeat ex lap on hold. -IV Reglan 10 mg q.8 hours -Continue TPN -IV diuresis -being weaned sedation, attempt CPAP -Continue current abx -PPI -full-dose anticoagulation -continue bronchodilators, Mucomyst -repeat labs and chest x-ray in a.m. Critical care time spent with patient discussing and formulating plan of care: 40 minutes. This does not include time spent performing procedures. This medical document was created using an electronic medical record system with [employer] system. Although this document has been carefully reviewed, there may still be some phonetic and typographical errors. These areas are purely typographical due to imperfections of the software programs, and do not reflect any compromise in the patient's medical care. Plan discussed with: Other (RN) My Orders Orders - JAYDEN HILL NP Procedure Category Date Status Time Metoclopramide PHA 05/11/25 In Process Injection (Reglan 18:00 Date of Service: May 12, 2025 Billing Provider: JAYDEN HILL NP Common Visit Codes: [id number] CARE 30-74 MIN JAYDEN HILL NP May 12, 2025 09:10
[2025-05-12] MEDS: VANCOMYCIN 750MG KIT 100 ML IV SCH (13:00)
[2025-05-12] MEDS: SUCCINYLCHOLINE CHLORIDE 20 MG/ML 10ML VIAL IV ONE (16:38)
[2025-05-12] MEDS: ROCURONIUM 10MG/ML 10ML VIAL IV ONE (16:38)
--- NOTE | 2025-05-12 17:07 | DVHPN2 ---
Progress Note - Dictate Date Seen: May 12, 2025 Medical Necessity Reason Pt with a Central, PICC or Fol: Yes The following are medically ne: PICC Line, Grewal Catheter Subjective Patient remains intubated and sedated NG tube output has decreased Patient's laparotomy scheduled for this morning was canceled as contrast were seen in the sigmoid colon suggestive of ileus However patient has not had any bowel movement yet vital signs Vital Sign Date Time Temp Pulse Resp B/P (MAP) Pulse Ox O2 Delivery O2 Flow Rate FiO2 05/12/25 16:11 92 22 125/63 (83) 96 30 05/12/25 14:00 Mechanical Ventilator+ 05/12/25 08:00 98.9 98.9 Total Intake and Output 05/11/25 05/11/25 05/12/25 15:00 23:00 07:00 Intake Total 201.84 ml 478.544 ml 797.656 ml Output Total 600 ml 660 ml Balance 201.84 ml -121.456 ml 137.656 ml medications Current Medications Medications Dose Ordered Sig/Gregory Route Start Time Stop Time Status Last Admin Dose Admin Pantoprazole Sodium 40 mg DAILY IV 04/16/25 10:00 05/12/25 10:14 40 MG Amino Acids 0 ml @ 0 mls/hr PER PHARMACY IV 04/18/25 17:45 Sodium Chloride 10 ml QSHIFT@ IV 04/21/25 22:00 05/12/25 10:14 10 ML Albuterol 2.5 mg Q3HPRN PRN NEB 04/24/25 16:15 05/08/25 12:13 2.5 MG Nicardipine/ Sodium Chloride 200 ml @ 50 mls/hr Q4H IV 04/25/25 09:45 Diagnostic Test (Pha) 1 strip Q6HR 04/30/25 12:00 05/12/25 12:00 1 STRIP Insulin Human Regular FOLLOW SLIDING SCALE Q6HR SC 04/30/25 12:00 05/08/25 14:29 2 UNITS Dextrose 50 ml UD IV 04/30/25 09:00 05/09/25 00:20 50 ML Lidocaine 1 patch DAILY TOP 04/30/25 10:30 05/12/25 10:15 1 PATCH Morphine Sulfate 1 mg Q6HP PRN IV 04/30/25 10:30 05/02/25 17:58 1 MG Metoprolol Tartrate 2.5 mg Q4HR PRN IV 04/30/25 11:30 05/06/25 09:11 2.5 MG Oxycodone/ Acetaminophen 1 tab Q6HP PRN PO 05/02/25 10:00 Docusate Sodium 100 mg BID PO 05/02/25 10:00 05/12/25 10:13 100 MG Propofol 100 ml @ 1.296 mls/ hr Q24H IV 05/02/25 20:45 05/12/25 09:05 5.184 MLS/HR Fentanyl Citrate 250 ml @ 2.5 mls/hr Q24H IV 05/02/25 20:45 05/12/25 09:06 7.5 MLS/HR Acetylcysteine 100 mg Q4HR NEB 05/05/25 10:00 UNV Enoxaparin Sodium 50 mg Q12HR SC 05/07/25 22:00 05/12/25 10:13 50 MG Vancomycin HCl 0 ml @ 0 mls/hr PER PHARMACY IV 05/09/25 10:30 Acetaminophen 650 mg Q6HP PRN NE 05/09/25 10:30 Meropenem 50 ml @ 17 mls/hr Q12HR IV 05/09/25 14:00 05/12/25 10:13 17 MLS/HR Vancomycin HCl 250 ml @ 200 mls/hr Q12H IV 05/09/25 18:00 Cancel Dextrose/Sodium Chloride 1,000 ml @ 30 mls/hr Q24H IV 05/10/25 18:15 05/10/25 16:10 30 MLS/HR Potassium Acetate 60 meq/Potassium Phosphate 44 meq/ Calcium Gluconate 4.65 meq/ Magnesium Sulfate 24 meq/ Multivitamins 10 ml/Chromium/ Copper/Manganese/ Zinc 1 ml/Amino Acids/Dextrose/ Purified Water 1,267 ml @ 53 mls/hr [id number] IV 05/11/25 22:00 05/12/25 21:59 05/11/25 21:58 53 MLS/HR Levalbuterol HCl 0.625 mg Q8HR NEB 05/11/25 14:00 05/12/25 14:38 0.625 MG Ipratropium [place] 0.5 mg Q8HR NEB 05/11/25 14:00 05/12/25 14:38 0.5 MG Acetylcysteine 100 mg Q8HR NEB 05/11/25 14:00 05/12/25 14:38 100 MG Metoclopramide HCl 5 mg Q8H IV 05/11/25 18:00 05/12/25 10:13 5 MG Potassium Acetate 20 meq/Calcium Gluconate 6.975 meq/Magnesium Sulfate 24 meq/ Multivitamins 10 ml/Chromium/ Copper/Manganese/ Zinc 1 ml/Amino Acids/Dextrose/ Purified Water 1,242 ml @ 52 mls/hr [id number] IV 05/12/25 22:00 05/13/25 21:59 Vancomycin HCl 100 ml @ 100 mls/hr Q12H IV 05/12/25 13:00 05/12/25 13:00 100 MLS/HR objective General Appearance: Alert, Cooperative, no distress HEENT: PERRLA, EOMI Lungs: Decreased breath sound on left lower lung. High-flow at 50% FiO2 Cardiovascular: Normal S1, Normal S2 Abdomen: No tenderness, No hepatospenomegaly, hypoactive bowel sounds, surgical wound dry Genitourinary: No Apparent Abnormalities (Grewal catheter) Musculoskeletal: Normal sensory function, Normal motor function Extremities: No edema, Normal pulses, No tenderness/swelling laboratory and microbiology Laboratory Tests 05/12/25 02:52 Test 05/12/25 02:52 Range/Units Serum Glucose 114 H 74-106 mg/dL Problems(with codes): (1) Urinary tract infection (2) Hip sprain (3) Small bowel obstruction (4) COPD (chronic obstructive pulmonary disease) (5) Acute respiratory distress Prognosis Plan Continue conservative management Reglan 5 mg IV q.8 hours Surgical consult following Continue IV TPN Continue IV antibiotics and pulmonary support Dietary Evaluation Review Recommendations by RD: PPN/TPN Comments: 1) Increase TPN to meet at least 75% estimated daily needs 2) Advance to cardiac diet when medically feasible 3) Follow-up with gastroenterology and neurology 4) Continue to monitor I&O, labs, and skin integrity Expected Outcomes/Goals: 1) nutrition support to meet at least 75% estimated daily needs 2) labs to improve 3) diet to advance 4) gradual wt gain 5) f/u in 2-3 days Plan discussed with: Other (Dr Azul Cui) JIL CUI MD May 12, 2025 17:07
[2025-05-12] MEDS: TPN PER PHARMACY IV NR (22:07)
--- NOTE | 2025-05-12 23:31 | DVHPN2 ---
Subjective DOS: 05/12/2025 Patient seen and examined at bedside. Sedated, intubated on mechanical ventilator. Overnight events reviewed. Reviewed: Care Plan, H&P, Labs, Medications Changes from previous H/P or p: No Changes General: Per HPI Objective Vitals Vital Signs Date Time Temp Pulse Resp B/P (MAP) Pulse Ox O2 Delivery O2 Flow Rate FiO2 05/12/25 23:00 86 22 108/42 (64) 98 05/12/25 22:18 Mechanical Ventilator+ 30 30 05/12/25 20:00 98.6 98.6 Intake/Output Intake and Output 05/12/25 07:00 Intake Total 1478.040 ml Output Total 1260 ml Balance 218.040 ml IV Total 1478.040 ml Output Urine Total 1250 ml Gastric Drainage Total 10 ml General Appearance: mild distress, Other (Intubated and sedated) HEENT: Atraumatic, PERRLA, Other Lungs: Other (On vent. Transmitted breath sounds bilaterally. Decreased air entry bilaterally. No wheezing. Bibasilar crackles.) Cardiovascular: Normal S1, Normal S2 Abdomen: No tenderness, No hepatospenomegaly, Other (Hypoactive bowel sounds.) Genitourinary: No Apparent Abnormalities (Grewal catheter) Musculoskeletal: Normal sensory function, Normal motor function Extremities: No edema, Normal pulses, No tenderness/swelling Neuro: Cranial nerves 3-12 NL, Other Skin: Dry, Intact, Wounds, Other (Surgical wound D&I) Psych/Mental Status: Mood NL Medications Current Medications Medications Dose Ordered Sig/Gregory Route Start Time Stop Time Status Last Admin Dose Admin Pantoprazole Sodium 40 mg DAILY IV 04/16/25 10:00 05/12/25 10:14 40 MG Amino Acids 0 ml @ 0 mls/hr PER PHARMACY IV 04/18/25 17:45 Sodium Chloride 10 ml QSHIFT@10,22 IV 04/21/25 22:00 05/12/25 21:56 10 ML Albuterol 2.5 mg Q3HPRN PRN NEB 04/24/25 16:15 05/08/25 12:13 2.5 MG Nicardipine/ Sodium Chloride 200 ml @ 50 mls/hr Q4H IV 04/25/25 09:45 Diagnostic Test (Pha) 1 strip Q6HR 04/30/25 12:00 05/12/25 17:58 1 STRIP Insulin Human Regular FOLLOW SLIDING SCALE Q6HR SC 04/30/25 12:00 05/08/25 14:29 2 UNITS Dextrose 50 ml UD IV 04/30/25 09:00 05/09/25 00:20 50 ML Lidocaine 1 patch DAILY TOP 04/30/25 10:30 05/12/25 10:15 1 PATCH Morphine Sulfate 1 mg Q6HP PRN IV 04/30/25 10:30 05/02/25 17:58 1 MG Metoprolol Tartrate 2.5 mg Q4HR PRN IV 04/30/25 11:30 05/06/25 09:11 2.5 MG Oxycodone/ Acetaminophen 1 tab Q6HP PRN PO 05/02/25 10:00 Docusate Sodium 100 mg BID PO 05/02/25 10:00 05/12/25 10:13 100 MG Propofol 100 ml @ 1.296 mls/ hr Q24H IV 05/02/25 20:45 05/12/25 18:23 5.184 MLS/HR Fentanyl Citrate 250 ml @ 2.5 mls/hr Q24H IV 05/02/25 20:45 05/12/25 09:06 7.5 MLS/HR Acetylcysteine 100 mg Q4HR NEB 05/05/25 10:00 UNV Enoxaparin Sodium 50 mg Q12HR SC 05/07/25 22:00 05/12/25 21:57 50 MG Vancomycin HCl 0 ml @ 0 mls/hr PER PHARMACY IV 05/09/25 10:30 Acetaminophen 650 mg Q6HP PRN NM 05/09/25 10:30 Meropenem 50 ml @ 17 mls/hr Q12HR IV 05/09/25 14:00 05/12/25 21:54 17 MLS/HR Vancomycin HCl 250 ml @ 200 mls/hr Q12H IV 05/09/25 18:00 Cancel Dextrose/Sodium Chloride 1,000 ml @ 30 mls/hr Q24H IV 05/10/25 18:15 05/10/25 16:10 30 MLS/HR Levalbuterol HCl 0.625 mg Q8HR NEB 05/11/25 14:00 05/12/25 22:06 0.625 MG Ipratropium [place] 0.5 mg Q8HR NEB 05/11/25 14:00 05/12/25 22:06 0.5 MG Acetylcysteine 100 mg Q8HR NEB 05/11/25 14:00 05/12/25 22:06 100 MG Metoclopramide HCl 5 mg Q8H IV 05/11/25 18:00 05/12/25 18:23 5 MG Potassium Acetate 20 meq/Calcium Gluconate 6.975 meq/Magnesium Sulfate 24 meq/ Multivitamins 10 ml/Chromium/ Copper/Manganese/ Zinc 1 ml/Amino Acids/Dextrose/ Purified Water 1,242 ml @ 52 mls/hr [id number] IV 05/12/25 22:00 05/13/25 21:59 05/12/25 22:07 52 MLS/HR Vancomycin HCl 100 ml @ 100 mls/hr Q12H IV 05/12/25 13:00 05/12/25 13:00 100 MLS/HR Laboratory Results Laboratory Tests 05/12/25 02:52 Chemistry Test 05/12/25 02:52 Albumin 2.9 g/dL (3.2-4.8) L Calcium Level 7.8 mg/dL (8.7-10.4) L Magnesium Level 2.1 mg/dL (1.6-2.6) Phosphorus Level 3.7 mg/dL (2.4-5.1) Total Protein 5.5 g/dL (5.7-8.2) L Coagulation Test 05/12/25 05:27 Prothrombin Time 10.7 sec (9.3-11.8) Prothrombin Time INR 1.01 (0.9-1.15) Activated Partial Thromboplast Time 31.5 SEC (24.5-34.5) LFT Test 05/12/25 02:52 Alanine Aminotransferase (ALT) 49 U/L (7-40) H Alkaline Phosphatase 143 U/L (46-116) H Aspartate Amino Transferase (AST) 46 U/L (13-40) H Total Bilirubin 0.4 mg/dL (0.2-1.0) Urinalysis Test 04/15/25 15:45 05/11/25 14:35 Urine Amorphous Crystals Few /hpf (None Seen) Urine Hyaline Casts Few /lpf (0 - 2) Urine Mucus Few (None Seen) Urine Color Light-yellow (Yellow) Urine Clarity Clear (Clear) Urine pH 7.0 (5.0-9.0) Urine Specific [place] 1.021 (1.001-1.035) Urine Protein Negative (Negative) Urine Ketones Negative (Negative) Urine Blood 1+ /uL (Negative) H Urine Nitrite Negative (Negative) Urine Bilirubin Negative (Negative) Urine Urobilinogen Normal mg/dL (Negative) Urine Leukocyte Esterase Negative /uL (Negative) Urine RBC 55 /hpf (0 - 4) Urine Microscopic WBC 1 /HPF (0-5) Urine Squamous Epithelial Cells Few /hpf (<5) Urine Bacteria None seen /hpf (None Seen) Urine Glucose Normal mg/dL (Normal) Blood Gas Results Test 05/12/25 06:47 Arterial Blood pH 7.453 (7.350-7.450) FiO2 % 30.0 Microbiology Microbiology Date/Time Source Procedure Growth Status 05/09/25 11:22 Blood Blood Culture - Preliminary NO GROWTH AFTER 72 HOURS OF INCUBATION. Resulted 05/02/25 20:30 Sputum Gram Stain - Final Complete 05/02/25 20:30 Sputum Respiratory Culture - Final Complete 05/02/25 00:00 Nose MRSA Screen - Final Complete 04/30/25 14:30 Pleural Fluid Gram Stain - Final Complete 04/30/25 14:30 Pleural Fluid Body Fluid Culture - Final Complete Assessment/Plan Assessment/Plan Impression: Acute hypoxic respiratory failure On mechanical ventilator Atelectasis Lung collapse Pneumonia Hx of nicotine dependence Cachexia, BMI 17.4 Small bowel obstruction Events: Patient seen and examined at bedside. Remains on mechanical ventilator On AC mode; RR 22, VT 450, PEEP 5, FiO2 30% Sedated on Propofol On Fentanyl drip for analgesia Obtain chest x-ray in the AM to assess for interval opacities. Surgery plans for exploratory laparotomy. Patient's laparotomy scheduled for this morning was canceled as contrast were seen in the sigmoid colon suggestive of ileus. NG tube output has decreased Patient has not had any bowel movement yet Surgery recommendations appreciated. CT abdomen/pelvis revealed suspicion for ileus versus bowel obstruction given retention of contrast primarily in the proximal small bowel. Trace bilateral pleural effusions with atelectasis and consolidation of the left lower lobe. Chronic ompression deformities. Left-sided pleural effusion with suspected consolidation of the left lower lobe with air bronchograms. Contrast did not reach colon up to 6 hours during small-bowel series ; dilated small bowel loops. Patient remains NPO TPN for nutritional support Continue daily CPAP trials Will await surgical clearance before proceeding to extubation. Surgery recs appreciated. Continue CPAP in the AM for exercise. Awaiting family meeting for discussion on goals of care. Hemoglobin stable Monitor for fevers - cooling measures PRN Continue TPN for nutritional support Continue NGT to LIS - monitor output GI recs appreciated Protonix for GI ppx Continue bronchodilators Mucolytics with Mucomyst Chest percussive therapy Continue antibiotics Continue antifungals Incentive spirometry Continue IV fluids with D5-LR Supportive care. Wound care. HOB elevation Aspiration precautions S/p bronchoscopy on 04/26/25 with clearance of copious secretions in L1-L10. Endobronchial lesion in left mainstem bronchus, biopsied. Follow up biopsy results. CT chest demonstrated improved aeration of left upper lobe Repeat bronchoscopy was performed on 04/30/25 with removal of mucous plugs in left lower lobe bronchus. Left thoracentesis was performed on 04/30/25 with removal of 250 mL serosanguineous fluid. Pleural fluid cultures showed no growth Labs and imaging reviewed. Rest of plan as noted below. Plan: s/p intubation on mechanical ventilator. On AC mode; RR 22, VT 450, PEEP 5, FiO2 30% Titrate FIO2 to keep O2 saturation above 90%. VAP bundle. Daily ABG and CXR while intubated Sedate for vent synchrony Pressors for hemodynamic support Titrate to keep mean arterial pressure greater than 65 mmHg Plan for surgery due to small bowel obstruction Follow up Surgery recommendations. Continue bronchodilators. Continue antibiotics Incentive spirometry Head of bed elevation Aspiration precautions NGT in place TPN for nutritional support Monitor renal function. Monitor electrolytes. Supplement as necessary. Monitor ins and outs. DVT prophylaxis. Prognosis: Poor given patient's multiple co-morbidities. Condition: Critical Rest of plan per hospitalist and other consultants. A total of 35 minutes of critical care time was spent reviewing the patient record, examining the patient, making a diagnostic and therapeutic plan, discussing this plan with the medical personnel, following up on diagnostic studies and following the patient for clinical stability excluding any and all procedures. At least 50% of this time was spent in direct, [id number] contact. Thank you, JESÚS Ford, for allowing me to participate in this patient's care. Further recommendations will depend on the patient's clinical course. Please do not hesitate to contact me if you have any questions or concerns. This medical document was created using an electronic medical record system with [employer] computerized dictation system. Although these documentations are being carefully reviewed, there may still be some phonetic and typographical changes. The errors are purely typographical, due to imperfection on the software program, and do not reflect any compromise in the patient's medical care. Plan discussed with: Other (KIA Valadez/Nahomy) My Orders Orders - KARENA WESTFALL MD Procedure Category Date Status Time Chest Portable XY 05/13/25 Logged 04:00 Cpap Trial For Am ORDERS 05/12/25 Transmitted 23:12 Visit Coding Pulmonary Billing Provider: KARENA WESTFALL MD Date of Service if different f: May 12, 2025 Common Visit Codes: [id number] INP/OBS CARE(HIGH), [id number] CARE 30-74 MIN KARENA WESTFALL MD May 12, 2025 23:31
[2025-05-13] VITALS (103 sets, daily range): BP systolic 90–169; BP diastolic 29–73; PULSE 73–129; RESP 15–31; TEMP 97.6–99.7; O2SAT 89–100
[2025-05-13 04:31] LABS: Hemoglobin 8.1 g/dL (12.2-16.2)
[2025-05-13 04:34] LABS: Hematocrit 24.7 % (36.0-46.0); Mean Corpuscular Hemoglobin 33.3 pg (28.0-32.0); Mean Corpuscular Volume 101.5 fL (80.0-100.0); Nucleated Red Blood Cells % 0.1 %
--- NOTE | 2025-05-13 04:35 | DVH ---
CHEST RADIOGRAPH Indication: ET Tube placement Technique: Single frontal view of the chest was obtained COMPARISON: XY CHEST PORTABLE on DOS: 05/11/25, XY CHEST PORTABLE on DOS: 05/08/25, XY CHEST PORTABLE on DOS: 05/07/25, XY CHEST PORTABLE on DOS: 05/06/25, XY CHEST PORTABLE on DOS: 05/05/25 FINDINGS: ETT terminating 6.5 cm above the choco. Right-sided PICC line with tip near the cavoatrial junction. Cardiac silhouette is borderline in size. No overt pulmonary edema. Stable small left-sided pleural effusion with dense atelectasis / consolidation at the left lung base. IMPRESSION: ETT terminating approximately 6.5 cm above the choco. Otherwise stable findings.
[2025-05-13 04:42] LABS: Anion Gap 9 (5-15); BUN/Creatinine Ratio 65.0 (10.0-20.0); Carbon Dioxide 27 mmol/L (20-31); Chloride 105 mmol/L (98-107); Magnesium 2.2 mg/dL (1.6-2.6); Potassium 4.2 mmol/L (3.5-5.1); Sodium 141 mmol/L (136-145)
[2025-05-13 04:43] LABS: Bilirubin, Total 0.3 mg/dL (0.2-1.0)
[2025-05-13 04:47] LABS: Alanine Aminotransferase 51 U/L (7-40); Albumin 2.5 g/dL (3.2-4.8); Alkaline Phosphatase 145 U/L (46-116); Blood Urea Nitrogen 26 mg/dL (9-23); Calcium 7.5 mg/dL (8.7-10.4); Glucose 268 mg/dL (74-106); Total Protein 4.6 g/dL (5.7-8.2)
[2025-05-13 07:35] LABS: Base Excess 2.9 mmol/L (-2.0-3.0)
--- NOTE | 2025-05-13 09:09 | DVHPN2 ---
Subjective Intubated and sedated Reviewed: Care Plan, H&P, Labs, Medications Changes from previous H/P or p: No Changes General: Per HPI Objective Vitals Vital Signs Date Time Temp Pulse Resp B/P (MAP) Pulse Ox O2 Delivery O2 Flow Rate FiO2 05/13/25 08:15 103 24 117/48 (71) 95 05/13/25 08:00 30 05/13/25 08:00 98.8 98.8 05/13/25 08:00 Mechanical Ventilator+ Intake/Output Intake and Output 05/13/25 07:00 Intake Total 2353.824 ml Output Total 2375 ml Balance -21.176 ml IV Total 2353.824 ml Output Urine Total 2375 ml General Appearance: mild distress, Other (Intubated and sedated) HEENT: Atraumatic, PERRLA, Other Lungs: Other (On vent. Transmitted breath sounds bilaterally. Decreased air entry bilaterally. No wheezing. Bibasilar crackles.) Cardiovascular: Normal S1, Normal S2, Other (A. Fib with RVR) Abdomen: No tenderness, No hepatospenomegaly, Other (Hypoactive bowel sounds.) Genitourinary: No Apparent Abnormalities (Grewal catheter) Musculoskeletal: Normal sensory function, Normal motor function Extremities: No edema, Normal pulses, No tenderness/swelling Neuro: Cranial nerves 3-12 NL, Other Skin: Dry, Intact, Wounds, Other (Surgical wound D&I) Psych/Mental Status: Mood NL Medications Current Medications Medications Dose Ordered Sig/Gregory Route Start Time Stop Time Status Last Admin Dose Admin Pantoprazole Sodium 40 mg DAILY IV 04/16/25 10:00 05/12/25 10:14 40 MG Amino Acids 0 ml @ 0 mls/hr PER PHARMACY IV 04/18/25 17:45 Sodium Chloride 10 ml QSHIFT@10,22 IV 04/21/25 22:00 05/12/25 21:56 10 ML Albuterol 2.5 mg Q3HPRN PRN NEB 04/24/25 16:15 05/08/25 12:13 2.5 MG Nicardipine/ Sodium Chloride 200 ml @ 50 mls/hr Q4H IV 04/25/25 09:45 Diagnostic Test (Pha) 1 strip Q6HR 04/30/25 12:00 05/13/25 06:19 1 STRIP Insulin Human Regular FOLLOW SLIDING SCALE Q6HR SC 04/30/25 12:00 05/08/25 14:29 2 UNITS Dextrose 50 ml UD IV 04/30/25 09:00 05/09/25 00:20 50 ML Lidocaine 1 patch DAILY TOP 04/30/25 10:30 05/12/25 10:15 1 PATCH Morphine Sulfate 1 mg Q6HP PRN IV 04/30/25 10:30 05/02/25 17:58 1 MG Metoprolol Tartrate 2.5 mg Q4HR PRN IV 04/30/25 11:30 05/06/25 09:11 2.5 MG Oxycodone/ Acetaminophen 1 tab Q6HP PRN PO 05/02/25 10:00 Docusate Sodium 100 mg BID PO 05/02/25 10:00 05/12/25 10:13 100 MG Propofol 100 ml @ 1.296 mls/ hr Q24H IV 05/02/25 20:45 05/13/25 06:01 5.184 MLS/HR Fentanyl Citrate 250 ml @ 2.5 mls/hr Q24H IV 05/02/25 20:45 05/12/25 09:06 7.5 MLS/HR Acetylcysteine 100 mg Q4HR NEB 05/05/25 10:00 UNV Enoxaparin Sodium 50 mg Q12HR SC 05/07/25 22:00 05/12/25 21:57 50 MG Vancomycin HCl 0 ml @ 0 mls/hr PER PHARMACY IV 05/09/25 10:30 Acetaminophen 650 mg Q6HP PRN [place] 05/09/25 10:30 Meropenem 50 ml @ 17 mls/hr Q12HR IV 05/09/25 14:00 05/12/25 21:54 17 MLS/HR Vancomycin HCl 250 ml @ 200 mls/hr Q12H IV 05/09/25 18:00 Cancel Dextrose/Sodium Chloride 1,000 ml @ 30 mls/hr Q24H IV 05/10/25 18:15 05/10/25 16:10 30 MLS/HR Levalbuterol HCl 0.625 mg Q8HR NEB 05/11/25 14:00 05/13/25 05:59 0.625 MG Ipratropium [place] 0.5 mg Q8HR NEB 05/11/25 14:00 05/13/25 05:59 0.5 MG Acetylcysteine 100 mg Q8HR NEB 05/11/25 14:00 05/13/25 05:58 100 MG Metoclopramide HCl 5 mg Q8H IV 05/11/25 18:00 05/13/25 01:59 5 MG Potassium Acetate 20 meq/Calcium Gluconate 6.975 meq/Magnesium Sulfate 24 meq/ Multivitamins 10 ml/Chromium/ Copper/Manganese/ Zinc 1 ml/Amino Acids/Dextrose/ Purified Water 1,242 ml @ 52 mls/hr [id number] IV 05/12/25 22:00 05/13/25 21:59 05/12/25 22:07 52 MLS/HR Vancomycin HCl 100 ml @ 100 mls/hr Q12H IV 05/12/25 13:00 05/13/25 01:59 100 MLS/HR Laboratory Results Laboratory Tests 05/13/25 03:30 05/13/25 04:00 Chemistry Test 05/13/25 03:30 Albumin 2.5 g/dL (3.2-4.8) L Calcium Level 7.5 mg/dL (8.7-10.4) L Magnesium Level 2.2 mg/dL (1.6-2.6) Phosphorus Level 2.8 mg/dL (2.4-5.1) Total Protein 4.6 g/dL (5.7-8.2) L LFT Test 05/13/25 03:30 Alanine Aminotransferase (ALT) 51 U/L (7-40) H Alkaline Phosphatase 145 U/L (46-116) H Aspartate Amino Transferase (AST) 48 U/L (13-40) H Total Bilirubin 0.3 mg/dL (0.2-1.0) Urinalysis Test 04/15/25 15:45 05/11/25 14:35 Urine Amorphous Crystals Few /hpf (None Seen) Urine Hyaline Casts Few /lpf (0 - 2) Urine Mucus Few (None Seen) Urine Color Light-yellow (Yellow) Urine Clarity Clear (Clear) Urine pH 7.0 (5.0-9.0) Urine Specific [place] 1.021 (1.001-1.035) Urine Protein Negative (Negative) Urine Ketones Negative (Negative) Urine Blood 1+ /uL (Negative) H Urine Nitrite Negative (Negative) Urine Bilirubin Negative (Negative) Urine Urobilinogen Normal mg/dL (Negative) Urine Leukocyte Esterase Negative /uL (Negative) Urine RBC 55 /hpf (0 - 4) Urine Microscopic WBC 1 /HPF (0-5) Urine Squamous Epithelial Cells Few /hpf (<5) Urine Bacteria None seen /hpf (None Seen) Urine Glucose Normal mg/dL (Normal) Blood Gas Results Test 05/13/25 07:30 Arterial Blood pH 7.487 (7.350-7.450) FiO2 % 30.0 Microbiology Microbiology Date/Time Source Procedure Growth Status 05/09/25 11:22 Blood Blood Culture - Preliminary NO GROWTH AFTER 72 HOURS OF INCUBATION. Resulted 05/02/25 20:30 Sputum Gram Stain - Final Complete 05/02/25 20:30 Sputum Respiratory Culture - Final Complete 05/02/25 00:00 Nose MRSA Screen - Final Complete 04/30/25 14:30 Pleural Fluid Gram Stain - Final Complete 04/30/25 14:30 Pleural Fluid Body Fluid Culture - Final Complete Labs and/or images reviewed: Labs reviewed by me, Image(s) reviewed by me Assessment/Plan Assessment/Plan Impression: -choledocholithiasis -acute pancreatitis -small-bowel obstruction -dementia -cachexia -sepsis -COPD -GERD -Post op delirium -Accelerated HTN -A. fib Plan: Events: Repeat KUB -IV Reglan 5 mg q.8 hours -Continue TPN -IV diuresis -being weaned sedation, attempt CPAP -Continue current abx -PPI -full-dose anticoagulation -continue bronchodilators, Mucomyst -repeat labs and chest x-ray in a.m. Critical care time spent with patient discussing and formulating plan of care: 40 minutes. This does not include time spent performing procedures. This medical document was created using an electronic medical record system with blogfoster dictation system. Although this document has been carefully reviewed, there may still be some phonetic and typographical errors. These areas are purely typographical due to imperfections of the software programs, and do not reflect any compromise in the patient's medical care. Plan discussed with: Patient, Other (RN) My Orders Orders - JAYDEN HILL NP Procedure Category Date Status Time Abg W/ Co-Ox RT 05/13/25 Logged 05:28 Kub Abdomen Single XY 05/13/25 Verified View 09:05 Metoprolol Inj PHA 05/13/25 Verified (Lopressor) 09:15 Chest Portable XY 05/14/25 Verified 04:00 Complete Blood Count LAB 05/14/25 Verified 04:00 Comprehensive LAB 05/14/25 Verified Metabolic Panel 04:00 Date of Service: May 13, 2025 Billing Provider: JAYDEN HILL NP Common Visit Codes: [id number] CARE 30-74 MIN JAYDEN HILL NP May 13, 2025 09:09
[2025-05-13] MEDS: METOPROLOL TARTRATE 1MG/1ML-5ML VIAL IV ONE (09:32)
--- NOTE | 2025-05-13 10:39 | DVH ---
Date: 05/13/2025 09:16 AM Examination: XY KUB ABDOMEN SINGLE VIEW History: ileus Comparison: XY KUB ABDOMEN SINGLE VIEW on DOS: 05/12/25, XY KUB ABDOMEN SINGLE VIEW on DOS: 05/11/25, XY KUB ABDOMEN SINGLE VIEW on DOS: 05/10/25, XY SMALL BOWEL SERIES-W GASTROGRA on DOS: 05/10/25, XY KUB ABDOMEN SINGLE VIEW on DOS: 05/09/25 TECHNIQUE: Frontal views of the abdomen was obtained. FINDINGS: Bowel gas pattern is unremarkable. The lung bases are unremarkable. No acute osseous abnormality identified. IMPRESSION: Nonobstructive bowel gas pattern. Contrast seen within the colon.
--- NOTE | 2025-05-13 12:42 | DVHPN2 ---
Progress Note Date Seen: May 13, 2025 Medical Necessity Reason Pt with a Central, PICC or Fol: Yes The following are medically ne: PICC Line, Grewal Catheter Objective vital signs Vital Sign Date Time Temp Pulse Resp B/P (MAP) Pulse Ox O2 Delivery O2 Flow Rate FiO2 05/13/25 12:30 106 26 125/52 (76) 98 05/13/25 12:00 Mechanical Ventilator+ 30 30 05/13/25 12:00 99.7 99.7 Total Intake and Output 05/12/25 05/12/25 05/13/25 14:59 22:59 06:59 Intake Total 856.472 ml 652.472 ml 848.472 ml Output Total 1150 ml 1225 ml Balance 856.472 ml -497.528 ml -376.528 ml medications Current Medications Medications Dose Ordered Sig/Gregory Route Start Time Stop Time Status Last Admin Dose Admin Pantoprazole Sodium 40 mg DAILY IV 04/16/25 10:00 05/13/25 09:44 40 MG Amino Acids 0 ml @ 0 mls/hr PER PHARMACY IV 04/18/25 17:45 Sodium Chloride 10 ml QSHIFT@10,22 IV 04/21/25 22:00 05/13/25 09:40 10 ML Albuterol 2.5 mg Q3HPRN PRN NEB 04/24/25 16:15 05/08/25 12:13 2.5 MG Nicardipine/ Sodium Chloride 200 ml @ 50 mls/hr Q4H IV 04/25/25 09:45 Diagnostic Test (Pha) 1 strip Q6HR 04/30/25 12:00 05/13/25 11:39 1 STRIP Insulin Human Regular FOLLOW SLIDING SCALE Q6HR SC 04/30/25 12:00 05/08/25 14:29 2 UNITS Dextrose 50 ml UD IV 04/30/25 09:00 05/09/25 00:20 50 ML Lidocaine 1 patch DAILY TOP 04/30/25 10:30 05/13/25 09:39 1 PATCH Morphine Sulfate 1 mg Q6HP PRN IV 04/30/25 10:30 05/02/25 17:58 1 MG Metoprolol Tartrate 2.5 mg Q4HR PRN IV 04/30/25 11:30 05/06/25 09:11 2.5 MG Oxycodone/ Acetaminophen 1 tab Q6HP PRN PO 05/02/25 10:00 Docusate Sodium 100 mg BID PO 05/02/25 10:00 05/13/25 09:40 100 MG Propofol 100 ml @ 1.296 mls/ hr Q24H IV 05/02/25 20:45 05/13/25 06:01 5.184 MLS/HR Fentanyl Citrate 250 ml @ 2.5 mls/hr Q24H IV 05/02/25 20:45 05/12/25 09:06 7.5 MLS/HR Acetylcysteine 100 mg Q4HR NEB 05/05/25 10:00 UNV Enoxaparin Sodium 50 mg Q12HR SC 05/07/25 22:00 05/13/25 09:40 50 MG Vancomycin HCl 0 ml @ 0 mls/hr PER PHARMACY IV 05/09/25 10:30 Acetaminophen 650 mg Q6HP PRN [place] 05/09/25 10:30 Meropenem 50 ml @ 17 mls/hr Q12HR IV 05/09/25 14:00 05/13/25 09:39 17 MLS/HR Vancomycin HCl 250 ml @ 200 mls/hr Q12H IV 05/09/25 18:00 Cancel Dextrose/Sodium Chloride 1,000 ml @ 30 mls/hr Q24H IV 05/10/25 18:15 05/10/25 16:10 30 MLS/HR Levalbuterol HCl 0.625 mg Q8HR NEB 05/11/25 14:00 05/13/25 05:59 0.625 MG Ipratropium [place] 0.5 mg Q8HR NEB 05/11/25 14:00 05/13/25 05:59 0.5 MG Acetylcysteine 100 mg Q8HR NEB 05/11/25 14:00 05/13/25 05:58 100 MG Metoclopramide HCl 5 mg Q8H IV 05/11/25 18:00 05/13/25 09:40 5 MG Potassium Acetate 20 meq/Calcium Gluconate 6.975 meq/Magnesium Sulfate 24 meq/ Multivitamins 10 ml/Chromium/ Copper/Manganese/ Zinc 1 ml/Amino Acids/Dextrose/ Purified Water 1,242 ml @ 52 mls/hr [id number] IV 05/12/25 22:00 05/13/25 21:59 05/12/25 22:07 52 MLS/HR Vancomycin HCl 100 ml @ 100 mls/hr Q12H IV 05/12/25 13:00 05/13/25 01:59 100 MLS/HR Potassium Acetate 40 meq/Potassium Phosphate 22 meq/ Calcium Gluconate 6.975 meq/ Magnesium Sulfate 22 meq/ Multivitamins 10 ml/Chromium/ Copper/Manganese/ Zinc 1 ml/Amino Acids/Dextrose/ Purified Water 1,256.5 ml @ 52 mls/hr [id number] IV 05/13/25 22:00 05/14/25 21:59 laboratory and microbiology Laboratory Tests 05/13/25 04:00 05/13/25 03:30 Test 05/13/25 03:30 Range/Units Serum Glucose 268 H 74-106 mg/dL Microbiology Date/Time Source Procedure Growth Status 05/09/25 11:22 Blood Blood Culture - Preliminary NO GROWTH AFTER 72 HOURS OF INCUBATION. Resulted 05/02/25 20:30 Sputum Gram Stain - Final Complete 05/02/25 20:30 Sputum Respiratory Culture - Final Complete 05/02/25 00:00 Nose MRSA Screen - Final Complete 04/30/25 14:30 Pleural Fluid Gram Stain - Final Complete 04/30/25 14:30 Pleural Fluid Body Fluid Culture - Final Complete Problem List/Assessment/Plan Problem List/Assessment/Plan AFEBRILE VSS REMAINS INTUBATED OG IN PLACE CLAMPED ABD SOFT NON TENDER NO BM WOUND DRESSING DRY KUB THIS AM CONTRAST IN SIGMOID COLON, NO BOWEL OBSTRUCTIVE PATTERN NG TO LIS FOR ASSESSING OUTPUT CLOSE OBSERVATION CONTINUE SUPPORTIVE CARE FAMILY AWARE OF PT CONDITION AND AGREES WITH THE PLAN NURSE AT BEDSIDE ONGOING PULM EVAL CONSIDER EMERGENT SURGERY BASED ON ONGOING EVAL Plan discussed with: Other My Orders My Orders Orders - GLORIA MCNEAL MD Procedure Category Date Status Time Communication Order ORDERS 05/12/25 Transmitted 19:20 Dietary Evaluation Review Recommendations by RD: PPN/TPN Comments: 1) Increase TPN to meet at least 75% estimated daily needs 2) Advance to cardiac diet when medically feasible 3) Follow-up with gastroenterology and neurology 4) Continue to monitor I&O, labs, and skin integrity Expected Outcomes/Goals: 1) nutrition support to meet at least 75% estimated daily needs 2) labs to improve 3) diet to advance 4) gradual wt gain 5) f/u in 2-3 days GLORIA MCNEAL MD May 13, 2025 12:42
--- NOTE | 2025-05-13 18:28 | DVHPN2 ---
Progress Note - Dictate Date Seen: May 13, 2025 Medical Necessity Reason Pt with a Central, PICC or Fol: Yes The following are medically ne: PICC Line, Grewal Catheter Subjective Patient remains intubated and sedated NG tube output has decreased Patient failed CPAP trial No bowel movement recorded yet vital signs Vital Sign Date Time Temp Pulse Resp B/P (MAP) Pulse Ox O2 Delivery O2 Flow Rate FiO2 05/13/25 18:00 85 20 134/57 (82) 100 05/13/25 18:00 Mechanical Ventilator+ 30 30 05/13/25 16:00 99.1 99.1 Total Intake and Output 05/12/25 05/12/25 05/13/25 15:00 23:00 07:00 Intake Total 856.472 ml 668.472 ml 828.880 ml Output Total 1150 ml 1225 ml Balance 856.472 ml -481.528 ml -396.120 ml medications Current Medications Medications Dose Ordered Sig/Gregory Route Start Time Stop Time Status Last Admin Dose Admin Pantoprazole Sodium 40 mg DAILY IV 04/16/25 10:00 05/13/25 09:44 40 MG Amino Acids 0 ml @ 0 mls/hr PER PHARMACY IV 04/18/25 17:45 Sodium Chloride 10 ml QSHIFT@,22 IV 04/21/25 22:00 05/13/25 09:40 10 ML Albuterol 2.5 mg Q3HPRN PRN NEB 04/24/25 16:15 05/08/25 12:13 2.5 MG Nicardipine/ Sodium Chloride 200 ml @ 50 mls/hr Q4H IV 04/25/25 09:45 Diagnostic Test (Pha) 1 strip Q6HR 04/30/25 12:00 05/13/25 17:43 1 STRIP Insulin Human Regular FOLLOW SLIDING SCALE Q6HR SC 04/30/25 12:00 05/08/25 14:29 2 UNITS Dextrose 50 ml UD IV 04/30/25 09:00 05/09/25 00:20 50 ML Lidocaine 1 patch DAILY TOP 04/30/25 10:30 05/13/25 09:39 1 PATCH Morphine Sulfate 1 mg Q6HP PRN IV 04/30/25 10:30 05/02/25 17:58 1 MG Metoprolol Tartrate 2.5 mg Q4HR PRN IV 04/30/25 11:30 05/13/25 13:07 2.5 MG Oxycodone/ Acetaminophen 1 tab Q6HP PRN PO 05/02/25 10:00 Docusate Sodium 100 mg BID PO 05/02/25 10:00 05/13/25 09:40 100 MG Propofol 100 ml @ 1.296 mls/ hr Q24H IV 05/02/25 20:45 05/13/25 17:42 10.368 MLS/HR Fentanyl Citrate 250 ml @ 2.5 mls/hr Q24H IV 05/02/25 20:45 05/13/25 13:35 2.5 MLS/HR Acetylcysteine 100 mg Q4HR NEB 05/05/25 10:00 UNV Enoxaparin Sodium 50 mg Q12HR SC 05/07/25 22:00 05/13/25 09:40 50 MG Vancomycin HCl 0 ml @ 0 mls/hr PER PHARMACY IV 05/09/25 10:30 Acetaminophen 650 mg Q6HP PRN [place] 05/09/25 10:30 Meropenem 50 ml @ 17 mls/hr Q12HR IV 05/09/25 14:00 05/13/25 09:39 17 MLS/HR Vancomycin HCl 250 ml @ 200 mls/hr Q12H IV 05/09/25 18:00 Cancel Dextrose/Sodium Chloride 1,000 ml @ 30 mls/hr Q24H IV 05/10/25 18:15 05/10/25 16:10 30 MLS/HR Levalbuterol HCl 0.625 mg Q8HR NEB 05/11/25 14:00 05/13/25 13:46 0.625 MG Ipratropium [place] 0.5 mg Q8HR NEB 05/11/25 14:00 05/13/25 13:46 0.5 MG Acetylcysteine 100 mg Q8HR NEB 05/11/25 14:00 05/13/25 13:46 100 MG Metoclopramide HCl 5 mg Q8H IV 05/11/25 18:00 05/13/25 17:46 5 MG Potassium Acetate 20 meq/Calcium Gluconate 6.975 meq/Magnesium Sulfate 24 meq/ Multivitamins 10 ml/Chromium/ Copper/Manganese/ Zinc 1 ml/Amino Acids/Dextrose/ Purified Water 1,242 ml @ 52 mls/hr [id number] IV 05/12/25 22:00 05/13/25 21:59 05/12/25 22:07 52 MLS/HR Vancomycin HCl 100 ml @ 100 mls/hr Q12H IV 05/12/25 13:00 05/13/25 12:55 100 MLS/HR Potassium Acetate 40 meq/Potassium Phosphate 22 meq/ Calcium Gluconate 6.975 meq/ Magnesium Sulfate 22 meq/ Multivitamins 10 ml/Chromium/ Copper/Manganese/ Zinc 1 ml/Amino Acids/Dextrose/ Purified Water 1,256.5 ml @ 52 mls/hr [id number] IV 05/13/25 22:00 05/14/25 21:59 objective General Appearance: Intubated sedated HEENT: PERRLA, EOMI Lungs: Decreased breath sound on left lower lung. High-flow at 50% FiO2 Cardiovascular: Normal S1, Normal S2 Abdomen: No tenderness, No hepatospenomegaly, hypoactive bowel sounds, surgical wound dry Genitourinary: No Apparent Abnormalities (Grewal catheter) Musculoskeletal: Normal sensory function, Normal motor function Extremities: No edema, Normal pulses, No tenderness/swelling laboratory and microbiology Laboratory Tests 05/13/25 04:00 05/13/25 03:30 Test 05/13/25 03:30 Range/Units Serum Glucose 268 H 74-106 mg/dL Problems(with codes): (1) Urinary tract infection (2) Acute respiratory distress (3) Small bowel obstruction (4) COPD (chronic obstructive pulmonary disease) Prognosis Plan Patient's NG tube has been clamped Continue IV TPN Consider placement of a rectal tube to see if that will help with bowel activity Monitor serial KUBs Close observation Repeat CPAP trial when more stable Ongoing pulmonary and surgical follow up Dietary Evaluation Review Recommendations by RD: PPN/TPN Comments: 1) Increase TPN to meet at least 75% estimated daily needs 2) Advance to cardiac diet when medically feasible 3) Follow-up with gastroenterology and neurology 4) Continue to monitor I&O, labs, and skin integrity Expected Outcomes/Goals: 1) nutrition support to meet at least 75% estimated daily needs 2) labs to improve 3) diet to advance 4) gradual wt gain 5) f/u in 2-3 days Plan discussed with: Other (ICU Nurse) JIL MCNEAL MD May 13, 2025 18:28
[2025-05-13] MEDS: TPN PER PHARMACY IV NR (21:57)
--- NOTE | 2025-05-13 23:22 | DVHPN2 ---
Subjective DOS: 05/13/2025 Patient seen and examined at bedside. Sedated, intubated on mechanical ventilator. Overnight events reviewed. Reviewed: Care Plan, H&P, Labs, Medications Changes from previous H/P or p: No Changes General: Per HPI Objective Vitals Vital Signs Date Time Temp Pulse Resp B/P (MAP) Pulse Ox O2 Delivery O2 Flow Rate FiO2 05/13/25 22:08 102 23 138/56 (83) 95 30 05/13/25 22:00 Mechanical Ventilator+ 05/13/25 16:00 99.1 99.1 Intake/Output Intake and Output 05/13/25 07:00 Intake Total 2353.824 ml Output Total 2375 ml Balance -21.176 ml IV Total 2353.824 ml Output Urine Total 2375 ml General Appearance: mild distress, Other (Intubated and sedated) HEENT: Atraumatic, PERRLA, Other Lungs: Other (On vent. Transmitted breath sounds bilaterally. Decreased air entry bilaterally. No wheezing. Bibasilar crackles.) Cardiovascular: Normal S1, Normal S2, Other (A. Fib with RVR) Abdomen: No tenderness, No hepatospenomegaly, Other (Hypoactive bowel sounds.) Genitourinary: No Apparent Abnormalities (Grewal catheter) Musculoskeletal: Normal sensory function, Normal motor function Extremities: No edema, Normal pulses, No tenderness/swelling Neuro: Cranial nerves 3-12 NL, Other Skin: Dry, Intact, Wounds, Other (Surgical wound D&I) Psych/Mental Status: Mood NL Medications Current Medications Medications Dose Ordered Sig/Gregory Route Start Time Stop Time Status Last Admin Dose Admin Pantoprazole Sodium 40 mg DAILY IV 04/16/25 10:00 05/13/25 09:44 40 MG Amino Acids 0 ml @ 0 mls/hr PER PHARMACY IV 04/18/25 17:45 Sodium Chloride 10 ml QSHIFT@,22 IV 04/21/25 22:00 05/13/25 22:04 10 ML Albuterol 2.5 mg Q3HPRN PRN NEB 04/24/25 16:15 05/08/25 12:13 2.5 MG Nicardipine/ Sodium Chloride 200 ml @ 50 mls/hr Q4H IV 04/25/25 09:45 Diagnostic Test (Pha) 1 strip Q6HR 04/30/25 12:00 05/13/25 17:43 1 STRIP Insulin Human Regular FOLLOW SLIDING SCALE Q6HR SC 04/30/25 12:00 05/08/25 14:29 2 UNITS Dextrose 50 ml UD IV 04/30/25 09:00 05/09/25 00:20 50 ML Lidocaine 1 patch DAILY TOP 04/30/25 10:30 05/13/25 09:39 1 PATCH Morphine Sulfate 1 mg Q6HP PRN IV 04/30/25 10:30 05/02/25 17:58 1 MG Metoprolol Tartrate 2.5 mg Q4HR PRN IV 04/30/25 11:30 05/13/25 13:07 2.5 MG Oxycodone/ Acetaminophen 1 tab Q6HP PRN PO 05/02/25 10:00 Docusate Sodium 100 mg BID PO 05/02/25 10:00 05/13/25 09:40 100 MG Propofol 100 ml @ 1.296 mls/ hr Q24H IV 05/02/25 20:45 05/13/25 17:42 10.368 MLS/HR Fentanyl Citrate 250 ml @ 2.5 mls/hr Q24H IV 05/02/25 20:45 05/13/25 13:35 2.5 MLS/HR Acetylcysteine 100 mg Q4HR NEB 05/05/25 10:00 UNV Enoxaparin Sodium 50 mg Q12HR SC 05/07/25 22:00 05/13/25 22:05 50 MG Vancomycin HCl 0 ml @ 0 mls/hr PER PHARMACY IV 05/09/25 10:30 Acetaminophen 650 mg Q6HP PRN GA 05/09/25 10:30 Meropenem 50 ml @ 17 mls/hr Q12HR IV 05/09/25 14:00 05/13/25 21:57 17 MLS/HR Vancomycin HCl 250 ml @ 200 mls/hr Q12H IV 05/09/25 18:00 Cancel Dextrose/Sodium Chloride 1,000 ml @ 30 mls/hr Q24H IV 05/10/25 18:15 05/13/25 19:30 30 MLS/HR Levalbuterol HCl 0.625 mg Q8HR NEB 05/11/25 14:00 05/13/25 22:07 0.625 MG Ipratropium [place] 0.5 mg Q8HR NEB 05/11/25 14:00 05/13/25 22:07 0.5 MG Acetylcysteine 100 mg Q8HR NEB 05/11/25 14:00 05/13/25 22:07 100 MG Metoclopramide HCl 5 mg Q8H IV 05/11/25 18:00 05/13/25 17:46 5 MG Vancomycin HCl 100 ml @ 100 mls/hr Q12H IV 05/12/25 13:00 05/13/25 12:55 100 MLS/HR Potassium Acetate 40 meq/Potassium Phosphate 22 meq/ Calcium Gluconate 6.975 meq/ Magnesium Sulfate 22 meq/ Multivitamins 10 ml/Chromium/ Copper/Manganese/ Zinc 1 ml/Amino Acids/Dextrose/ Purified Water 1,256.5 ml @ 52 mls/hr [id number] IV 05/13/25 22:00 05/14/25 21:59 05/13/25 21:57 52 MLS/HR Laboratory Results Laboratory Tests 05/13/25 03:30 05/13/25 04:00 Chemistry Test 05/13/25 03:30 Albumin 2.5 g/dL (3.2-4.8) L Calcium Level 7.5 mg/dL (8.7-10.4) L Magnesium Level 2.2 mg/dL (1.6-2.6) Phosphorus Level 2.8 mg/dL (2.4-5.1) Total Protein 4.6 g/dL (5.7-8.2) L LFT Test 05/13/25 03:30 Alanine Aminotransferase (ALT) 51 U/L (7-40) H Alkaline Phosphatase 145 U/L (46-116) H Aspartate Amino Transferase (AST) 48 U/L (13-40) H Total Bilirubin 0.3 mg/dL (0.2-1.0) Urinalysis Test 04/15/25 15:45 05/11/25 14:35 Urine Amorphous Crystals Few /hpf (None Seen) Urine Hyaline Casts Few /lpf (0 - 2) Urine Mucus Few (None Seen) Urine Color Light-yellow (Yellow) Urine Clarity Clear (Clear) Urine pH 7.0 (5.0-9.0) Urine Specific [place] 1.021 (1.001-1.035) Urine Protein Negative (Negative) Urine Ketones Negative (Negative) Urine Blood 1+ /uL (Negative) H Urine Nitrite Negative (Negative) Urine Bilirubin Negative (Negative) Urine Urobilinogen Normal mg/dL (Negative) Urine Leukocyte Esterase Negative /uL (Negative) Urine RBC 55 /hpf (0 - 4) Urine Microscopic WBC 1 /HPF (0-5) Urine Squamous Epithelial Cells Few /hpf (<5) Urine Bacteria None seen /hpf (None Seen) Urine Glucose Normal mg/dL (Normal) Blood Gas Results Test 05/13/25 07:30 Arterial Blood pH 7.487 (7.350-7.450) FiO2 % 30.0 Microbiology Microbiology Date/Time Source Procedure Growth Status 05/09/25 11:22 Blood Blood Culture - Preliminary NO GROWTH AFTER 72 HOURS OF INCUBATION. Resulted 05/02/25 20:30 Sputum Gram Stain - Final Complete 05/02/25 20:30 Sputum Respiratory Culture - Final Complete 05/02/25 00:00 Nose MRSA Screen - Final Complete 04/30/25 14:30 Pleural Fluid Gram Stain - Final Complete 04/30/25 14:30 Pleural Fluid Body Fluid Culture - Final Complete Assessment/Plan Assessment/Plan Impression: Acute hypoxic respiratory failure On mechanical ventilator Atelectasis Lung collapse Pneumonia Hx of nicotine dependence Cachexia, BMI 17.4 Small bowel obstruction Events: Patient seen and examined at bedside. Remains on mechanical ventilator On AC mode; RR 22, VT 450, PEEP 5, FiO2 30% Sedated on Propofol On Fentanyl drip for analgesia ABG notable for alkalemia Chest x-ray stable, Stable small left-sided pleural effusion with dense atelectasis / consolidation at the left lung base. Patient failed CPAP trial Surgery plans for exploratory laparotomy. Patient's laparotomy scheduled for 05/12/25 was canceled as contrast were seen in the sigmoid colon suggestive of ileus. NG tube output has decreased Patient has not had any bowel movement yet Surgery recommendations appreciated. CT abdomen/pelvis revealed suspicion for ileus versus bowel obstruction given retention of contrast primarily in the proximal small bowel. Trace bilateral pleural effusions with atelectasis and consolidation of the left lower lobe. Chronic ompression deformities. Left-sided pleural effusion with suspected consolidation of the left lower lobe with air bronchograms. Contrast did not reach colon up to 6 hours during small-bowel series ; dilated small bowel loops. Patient remains NPO TPN for nutritional support Continue daily CPAP trials Will await surgical clearance before proceeding to extubation. Surgery recs appreciated. Continue CPAP in the AM for exercise. Awaiting family meeting for discussion on goals of care. Hemoglobin stable Monitor for fevers - cooling measures PRN Continue TPN for nutritional support Continue NGT to LIS - monitor output GI recs appreciated Protonix for GI ppx Continue bronchodilators Mucolytics with Mucomyst Chest percussive therapy Continue antibiotics Continue antifungals Incentive spirometry Continue IV fluids with D5-LR Supportive care. Wound care. HOB elevation Aspiration precautions S/p bronchoscopy on 04/26/25 with clearance of copious secretions in L1-L10. Endobronchial lesion in left mainstem bronchus, biopsied. Follow up biopsy results. CT chest demonstrated improved aeration of left upper lobe Repeat bronchoscopy was performed on 04/30/25 with removal of mucous plugs in left lower lobe bronchus. Left thoracentesis was performed on 04/30/25 with removal of 250 mL serosanguineous fluid. Pleural fluid cultures showed no growth Labs and imaging reviewed. Rest of plan as noted below. Plan: s/p intubation on mechanical ventilator. On AC mode; RR 22, VT 450, PEEP 5, FiO2 30% Titrate FIO2 to keep O2 saturation above 90%. VAP bundle. Daily ABG and CXR while intubated Sedate for vent synchrony Pressors for hemodynamic support Titrate to keep mean arterial pressure greater than 65 mmHg Plan for surgery due to small bowel obstruction Follow up Surgery recommendations. Continue bronchodilators. Continue antibiotics Incentive spirometry Head of bed elevation Aspiration precautions NGT in place TPN for nutritional support Monitor renal function. Monitor electrolytes. Supplement as necessary. Monitor ins and outs. DVT prophylaxis. Prognosis: Poor given patient's multiple co-morbidities. Condition: Critical Rest of plan per hospitalist and other consultants. A total of 35 minutes of critical care time was spent reviewing the patient record, examining the patient, making a diagnostic and therapeutic plan, discussing this plan with the medical personnel, following up on diagnostic studies and following the patient for clinical stability excluding any and all procedures. At least 50% of this time was spent in direct, [id number] contact. Thank you, JESÚS Ford, for allowing me to participate in this patient's care. Further recommendations will depend on the patient's clinical course. Please do not hesitate to contact me if you have any questions or concerns. This medical document was created using an electronic medical record system with [email or web address] dictation system. Although these documentations are being carefully reviewed, there may still be some phonetic and typographical changes. The errors are purely typographical, due to imperfection on the software program, and do not reflect any compromise in the patient's medical care. Plan discussed with: Other (RN) Visit Coding Pulmonary Billing Provider: KARENA WESTFALL MD Date of Service if different f: May 13, 2025 Common Visit Codes: [id number] INP/OBS CARE(HIGH), [id number] CARE 30-74 MIN KARENA WESTFALL MD May 13, 2025 23:22
[2025-05-14] VITALS (99 sets, daily range): BP systolic 82–169; BP diastolic 33–75; PULSE 73–137; RESP 15–42; TEMP 97.5–97.9; O2SAT 87–100
[2025-05-14 04:33] LABS: Hematocrit 26.9 % (36.0-46.0); Hemoglobin 8.8 g/dL (12.2-16.2); Mean Corpuscular Hemoglobin 32.6 pg (28.0-32.0); Mean Corpuscular Volume 99.7 fL (80.0-100.0); Nucleated Red Blood Cells % 0.1 %
--- NOTE | 2025-05-14 04:51 | DVH ---
INDICATION: PNa TECHNIQUE: Frontal view of the chest. COMPARISON: XY CHEST PORTABLE on DOS: 05/13/25, XY CHEST PORTABLE on DOS: 05/11/25, XY CHEST PORTABLE on DOS: 05/08/25, XY CHEST PORTABLE on DOS: 05/07/25, XY CHEST PORTABLE on DOS: 05/06/25 FINDINGS: Minor chronic changes are noted. No large consolidation seen. There may be minor hypoventilatory changes at the left base. ET tube is seen with the tip about 2 cm above the choco. Right-sided PICC line seen with the tip projecting over the right atrium. NG tube is seen with the tip and side hole projecting over stomach. Mediastinal contours appear unremarkable. Bones appear unremarkable. IMPRESSION: 1. Minor hypoventilatory changes at the left base
[2025-05-14 04:54] LABS: Anion Gap 11 (5-15); BUN/Creatinine Ratio 90.0 (10.0-20.0); Carbon Dioxide 27 mmol/L (20-31); Glucose 98 mg/dL (74-106); Magnesium 1.8 mg/dL (1.6-2.6); Potassium 3.6 mmol/L (3.5-5.1)
[2025-05-14 04:55] LABS: Alanine Aminotransferase 45 U/L (7-40); Albumin 2.6 g/dL (3.2-4.8); Alkaline Phosphatase 142 U/L (46-116); Bilirubin, Total 0.3 mg/dL (0.2-1.0); Blood Urea Nitrogen 27 mg/dL (9-23); Calcium 7.6 mg/dL (8.7-10.4); Chloride 109 mmol/L (98-107); Sodium 147 mmol/L (136-145); Total Protein 4.9 g/dL (5.7-8.2)
[2025-05-14 07:20] LABS: Base Excess 2.4 mmol/L (-2.0-3.0)
--- NOTE | 2025-05-14 07:29 | ECG ---
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
--- NOTE | 2025-05-14 09:44 | MEDREC ---
[facility] Intervention Section I [facility] Intervention: Deescalate AB based on CS (CONSIDER DE-ESCALATION FROM MEROPENEM TO CEFTRIAXONE.), Review courses of therapy AMISH SAUCEDO [facility] RESIDENT May 14, 2025 09:44
--- NOTE | 2025-05-14 09:59 | DVHPN2 ---
Subjective Intubated and following commands Reviewed: Care Plan, H&P, Labs, Medications Changes from previous H/P or p: No Changes General: Per HPI Objective Vitals Vital Signs Date Time Temp Pulse Resp B/P (MAP) Pulse Ox O2 Delivery O2 Flow Rate FiO2 05/14/25 09:14 90 16 117/49 (71) 100 30 05/14/25 08:00 Mechanical Ventilator+ 05/14/25 04:00 97.7 97.7 Intake/Output Intake and Output 05/14/25 07:00 Intake Total 2405.935 ml Output Total 3050 ml Balance -644.065 ml Intake Oral 60 ml IV Total 2345.935 ml Output Urine Total 2950 ml Gastric Drainage Total 100 ml General Appearance: mild distress, Other (Intubated and sedated) HEENT: Atraumatic, PERRLA, Other Lungs: Other (On vent. Transmitted breath sounds bilaterally. Decreased air entry bilaterally. No wheezing. Bibasilar crackles.) Cardiovascular: Normal S1, Normal S2, Other (A. Fib with RVR) Abdomen: No tenderness, No hepatospenomegaly, Other (Hypoactive bowel sounds.) Genitourinary: No Apparent Abnormalities (Grewal catheter) Musculoskeletal: Normal sensory function, Normal motor function Extremities: No edema, Normal pulses, No tenderness/swelling Neuro: Cranial nerves 3-12 NL, Other Skin: Dry, Intact, Wounds, Other (Surgical wound D&I) Psych/Mental Status: Mood NL Medications Current Medications Medications Dose Ordered Sig/Gregory Route Start Time Stop Time Status Last Admin Dose Admin Pantoprazole Sodium 40 mg DAILY IV 04/16/25 10:00 05/13/25 09:44 40 MG Amino Acids 0 ml @ 0 mls/hr PER PHARMACY IV 04/18/25 17:45 Sodium Chloride 10 ml QSHIFT@10,22 IV 04/21/25 22:00 05/13/25 22:04 10 ML Albuterol 2.5 mg Q3HPRN PRN NEB 04/24/25 16:15 05/08/25 12:13 2.5 MG Nicardipine/ Sodium Chloride 200 ml @ 50 mls/hr Q4H IV 04/25/25 09:45 Diagnostic Test (Pha) 1 strip Q6HR 04/30/25 12:00 05/14/25 06:11 1 STRIP Insulin Human Regular FOLLOW SLIDING SCALE Q6HR SC 04/30/25 12:00 05/14/25 00:03 2 UNITS Dextrose 50 ml UD IV 04/30/25 09:00 05/09/25 00:20 50 ML Lidocaine 1 patch DAILY TOP 04/30/25 10:30 05/13/25 09:39 1 PATCH Morphine Sulfate 1 mg Q6HP PRN IV 04/30/25 10:30 05/02/25 17:58 1 MG Metoprolol Tartrate 2.5 mg Q4HR PRN IV 04/30/25 11:30 05/13/25 13:07 2.5 MG Oxycodone/ Acetaminophen 1 tab Q6HP PRN PO 05/02/25 10:00 Docusate Sodium 100 mg BID PO 05/02/25 10:00 05/13/25 09:40 100 MG Propofol 100 ml @ 1.296 mls/ hr Q24H IV 05/02/25 20:45 05/13/25 17:42 10.368 MLS/HR Fentanyl Citrate 250 ml @ 2.5 mls/hr Q24H IV 05/02/25 20:45 05/13/25 13:35 2.5 MLS/HR Acetylcysteine 100 mg Q4HR NEB 05/05/25 10:00 UNV Enoxaparin Sodium 50 mg Q12HR SC 05/07/25 22:00 05/13/25 22:05 50 MG Vancomycin HCl 0 ml @ 0 mls/hr PER PHARMACY IV 05/09/25 10:30 Acetaminophen 650 mg Q6HP PRN DC 05/09/25 10:30 Meropenem 50 ml @ 17 mls/hr Q12HR IV 05/09/25 14:00 05/13/25 21:57 17 MLS/HR Vancomycin HCl 250 ml @ 200 mls/hr Q12H IV 05/09/25 18:00 Cancel Dextrose/Sodium Chloride 1,000 ml @ 30 mls/hr Q24H IV 05/10/25 18:15 05/13/25 19:30 30 MLS/HR Levalbuterol HCl 0.625 mg Q8HR NEB 05/11/25 14:00 05/14/25 06:04 0.625 MG Ipratropium [place] 0.5 mg Q8HR NEB 05/11/25 14:00 05/14/25 06:04 0.5 MG Acetylcysteine 100 mg Q8HR NEB 05/11/25 14:00 05/14/25 06:04 100 MG Metoclopramide HCl 5 mg Q8H IV 05/11/25 18:00 05/14/25 01:38 5 MG Potassium Acetate 40 meq/Potassium Phosphate 22 meq/ Calcium Gluconate 6.975 meq/ Magnesium Sulfate 22 meq/ Multivitamins 10 ml/Chromium/ Copper/Manganese/ Zinc 1 ml/Amino Acids/Dextrose/ Purified Water 1,256.5 ml @ 52 mls/hr [id number] IV 05/13/25 22:00 05/14/25 21:59 05/13/25 21:57 52 MLS/HR Vancomycin HCl 250 ml @ 250 mls/hr Q12H IV 05/14/25 13:00 Laboratory Results Laboratory Tests 05/14/25 04:00 Chemistry Test 05/14/25 04:00 Albumin 2.6 g/dL (3.2-4.8) L Calcium Level 7.6 mg/dL (8.7-10.4) L Magnesium Level 1.8 mg/dL (1.6-2.6) Phosphorus Level 2.7 mg/dL (2.4-5.1) Total Protein 4.9 g/dL (5.7-8.2) L LFT Test 05/14/25 04:00 Alanine Aminotransferase (ALT) 45 U/L (7-40) H Alkaline Phosphatase 142 U/L (46-116) H Aspartate Amino Transferase (AST) 36 U/L (13-40) Total Bilirubin 0.3 mg/dL (0.2-1.0) Urinalysis Test 04/15/25 15:45 05/11/25 14:35 Urine Amorphous Crystals Few /hpf (None Seen) Urine Hyaline Casts Few /lpf (0 - 2) Urine Mucus Few (None Seen) Urine Color Light-yellow (Yellow) Urine Clarity Clear (Clear) Urine pH 7.0 (5.0-9.0) Urine Specific [place] 1.021 (1.001-1.035) Urine Protein Negative (Negative) Urine Ketones Negative (Negative) Urine Blood 1+ /uL (Negative) H Urine Nitrite Negative (Negative) Urine Bilirubin Negative (Negative) Urine Urobilinogen Normal mg/dL (Negative) Urine Leukocyte Esterase Negative /uL (Negative) Urine RBC 55 /hpf (0 - 4) Urine Microscopic WBC 1 /HPF (0-5) Urine Squamous Epithelial Cells Few /hpf (<5) Urine Bacteria None seen /hpf (None Seen) Urine Glucose Normal mg/dL (Normal) Blood Gas Results Test 05/14/25 07:12 Arterial Blood pH 7.477 (7.350-7.450) FiO2 % 30.0 Microbiology Microbiology Date/Time Source Procedure Growth Status 05/09/25 11:22 Blood Blood Culture - Preliminary NO GROWTH AFTER 72 HOURS OF INCUBATION. Resulted 05/02/25 20:30 Sputum Gram Stain - Final Complete 05/02/25 20:30 Sputum Respiratory Culture - Final Complete 05/02/25 00:00 Nose MRSA Screen - Final Complete 04/30/25 14:30 Pleural Fluid Gram Stain - Final Complete 04/30/25 14:30 Pleural Fluid Body Fluid Culture - Final Complete Labs and/or images reviewed: Labs reviewed by me, Image(s) reviewed by me Assessment/Plan Assessment/Plan Impression: -choledocholithiasis -acute pancreatitis -small-bowel obstruction -dementia -cachexia -sepsis -COPD -GERD -Post op delirium -Accelerated HTN -A. fib Plan: Events: Discussed case with Dr. Clau Cui. No plans for surgery at this time. Patient will receive Fleet's enema, and proceed with spontaneous breathing trial. Also discussed with primary nurse to change OG-tube to NG tube before extubation. -IV Reglan 5 mg q.8 hours -Continue TPN -IV diuresis -being weaned sedation, attempt CPAP -Continue current abx -PPI -full-dose anticoagulation -continue bronchodilators, Mucomyst -repeat labs and chest x-ray in a.m. Critical care time spent with patient discussing and formulating plan of care: 40 minutes. This does not include time spent performing procedures. This medical document was created using an electronic medical record system with [employer] system. Although this document has been carefully reviewed, there may still be some phonetic and typographical errors. These areas are purely typographical due to imperfections of the software programs, and do not reflect any compromise in the patient's medical care. Plan discussed with: Patient, Other (RN) My Orders Orders - JAYDEN HILL CREDIT RELATIONSHIP MANAGER Procedure Category Date Status Time Abg W/ Co-Ox RT 05/14/25 Logged 06:00 Cpap/Sed Vacation Med ORDERS 05/14/25 Transmitted Weaning 08:18 Cpap Trial For Am ORDERS 05/14/25 Transmitted 08:18 Date of Service: May 14, 2025 Billing Provider: JAYDEN HILL NP Common Visit Codes: 83681-YAT/OBS DISCH DAY >30min JAYDEN HILL NP May 14, 2025 09:59
--- NOTE | 2025-05-14 10:34 | DVHPN2 ---
Progress Note Date Seen: May 14, 2025 Medical Necessity Reason Pt with a Central, PICC or Fol: Yes The following are medically ne: PICC Line, Grewal Catheter Objective vital signs Vital Sign Date Time Temp Pulse Resp B/P (MAP) Pulse Ox O2 Delivery O2 Flow Rate FiO2 05/14/25 10:00 24 100 Mechanical Ventilator+ 30 30 05/14/25 10:00 100 05/14/25 09:14 117/49 (71) 05/14/25 04:00 97.7 97.7 Total Intake and Output 05/13/25 05/13/25 05/14/25 14:59 22:59 06:59 Intake Total 857.840 ml 784.537 ml 848.15 ml Output Total 1900 ml 1150 ml Balance 857.840 ml -1115.463 ml -301.85 ml medications Current Medications Medications Dose Ordered Sig/Gregory Route Start Time Stop Time Status Last Admin Dose Admin Pantoprazole Sodium 40 mg DAILY IV 04/16/25 10:00 05/13/25 09:44 40 MG Amino Acids 0 ml @ 0 mls/hr PER PHARMACY IV 04/18/25 17:45 Sodium Chloride 10 ml QSHIFT@10,22 IV 04/21/25 22:00 05/13/25 22:04 10 ML Albuterol 2.5 mg Q3HPRN PRN NEB 04/24/25 16:15 05/08/25 12:13 2.5 MG Nicardipine/ Sodium Chloride 200 ml @ 50 mls/hr Q4H IV 04/25/25 09:45 Diagnostic Test (Pha) 1 strip Q6HR 04/30/25 12:00 05/14/25 06:11 1 STRIP Insulin Human Regular FOLLOW SLIDING SCALE Q6HR SC 04/30/25 12:00 05/14/25 00:03 2 UNITS Dextrose 50 ml UD IV 04/30/25 09:00 05/09/25 00:20 50 ML Lidocaine 1 patch DAILY TOP 04/30/25 10:30 05/13/25 09:39 1 PATCH Morphine Sulfate 1 mg Q6HP PRN IV 04/30/25 10:30 05/02/25 17:58 1 MG Metoprolol Tartrate 2.5 mg Q4HR PRN IV 04/30/25 11:30 05/13/25 13:07 2.5 MG Oxycodone/ Acetaminophen 1 tab Q6HP PRN PO 05/02/25 10:00 Docusate Sodium 100 mg BID PO 05/02/25 10:00 05/13/25 09:40 100 MG Propofol 100 ml @ 1.296 mls/ hr Q24H IV 05/02/25 20:45 05/13/25 17:42 10.368 MLS/HR Fentanyl Citrate 250 ml @ 2.5 mls/hr Q24H IV 05/02/25 20:45 05/13/25 13:35 2.5 MLS/HR Acetylcysteine 100 mg Q4HR NEB 05/05/25 10:00 UNV Enoxaparin Sodium 50 mg Q12HR SC 05/07/25 22:00 05/13/25 22:05 50 MG Vancomycin HCl 0 ml @ 0 mls/hr PER PHARMACY IV 05/09/25 10:30 Acetaminophen 650 mg Q6HP PRN AR 05/09/25 10:30 Meropenem 50 ml @ 17 mls/hr Q12HR IV 05/09/25 14:00 05/13/25 21:57 17 MLS/HR Vancomycin HCl 250 ml @ 200 mls/hr Q12H IV 05/09/25 18:00 Cancel Dextrose/Sodium Chloride 1,000 ml @ 30 mls/hr Q24H IV 05/10/25 18:15 05/13/25 19:30 30 MLS/HR Levalbuterol HCl 0.625 mg Q8HR NEB 05/11/25 14:00 05/14/25 06:04 0.625 MG Ipratropium [place] 0.5 mg Q8HR NEB 05/11/25 14:00 05/14/25 06:04 0.5 MG Acetylcysteine 100 mg Q8HR NEB 05/11/25 14:00 05/14/25 06:04 100 MG Metoclopramide HCl 5 mg Q8H IV 05/11/25 18:00 05/14/25 01:38 5 MG Potassium Acetate 40 meq/Potassium Phosphate 22 meq/ Calcium Gluconate 6.975 meq/ Magnesium Sulfate 22 meq/ Multivitamins 10 ml/Chromium/ Copper/Manganese/ Zinc 1 ml/Amino Acids/Dextrose/ Purified Water 1,256.5 ml @ 52 mls/hr [id number] IV 05/13/25 22:00 05/14/25 21:59 05/13/25 21:57 52 MLS/HR Vancomycin HCl 250 ml @ 250 mls/hr Q12H IV 05/14/25 13:00 laboratory and microbiology Laboratory Tests 05/14/25 04:00 Test 05/14/25 04:00 Range/Units Serum Glucose 98 74-106 mg/dL Microbiology Date/Time Source Procedure Growth Status 05/09/25 11:22 Blood Blood Culture - Preliminary NO GROWTH AFTER 72 HOURS OF INCUBATION. Resulted 05/02/25 20:30 Sputum Gram Stain - Final Complete 05/02/25 20:30 Sputum Respiratory Culture - Final Complete 05/02/25 00:00 Nose MRSA Screen - Final Complete 04/30/25 14:30 Pleural Fluid Gram Stain - Final Complete 04/30/25 14:30 Pleural Fluid Body Fluid Culture - Final Complete Problem List/Assessment/Plan Problem List/Assessment/Plan AFEBRILE VSS REMAINS INTUBATED OG REMOVED NG PLACEMENT ATTEMPTED PT RESISTED ABD SOFT NON TENDER NO BM WOUND DRESSING DRY KUB THIS AM CONTRAST IN SIGMOID COLON, NO BOWEL OBSTRUCTIVE PATTERN CLOSE OBSERVATION CONSIDER FLEETS ENEMA CONTINUE SUPPORTIVE CARE FAMILY AWARE OF PT CONDITION AND AGREES WITH THE PLAN NURSE AT BEDSIDE ONGOING PULM EVAL CONSIDER EMERGENT SURGERY BASED ON ONGOING EVAL Plan discussed with: Other My Orders My Orders Orders - GLORIA MCNEAL MD Procedure Category Date Status Time Kub Abdomen Single XY 05/14/25 Taken View 09:30 Communication Order ORDERS 05/13/25 Transmitted 21:39 Dietary Evaluation Review Recommendations by RD: PPN/TPN Comments: 1) Increase TPN to meet at least 75% estimated daily needs 2) Advance to cardiac diet when medically feasible 3) Follow-up with gastroenterology and neurology 4) Continue to monitor I&O, labs, and skin integrity Expected Outcomes/Goals: 1) nutrition support to meet at least 75% estimated daily needs 2) labs to improve 3) diet to advance 4) gradual wt gain 5) f/u in 2-3 days GLORIA MCNEAL MD May 14, 2025 10:34
[2025-05-14] MEDS: FLEET ENEMA(ADULT) 135 ML PR ONE (10:42)
--- NOTE | 2025-05-14 11:16 | DVH ---
Date: 05/14/2025 10:23 AM Examination: XY KUB ABDOMEN SINGLE VIEW History: SBO Comparison: XY KUB ABDOMEN SINGLE VIEW on DOS: 05/13/25, XY KUB ABDOMEN SINGLE VIEW on DOS: 05/12/25, XY KUB ABDOMEN SINGLE VIEW on DOS: 05/11/25, XY KUB ABDOMEN SINGLE VIEW on DOS: 05/10/25, XY SMALL BOWEL SERIES-W GASTROGRA on DOS: 05/10/25, XY KUB ABDOMEN SINGLE VIEW on DOS: 05/13/25 TECHNIQUE: Frontal views of the abdomen was obtained. FINDINGS: Bowel gas pattern is unremarkable. The lung bases are unremarkable. No acute osseous abnormality identified. IMPRESSION: Nonobstructive bowel gas pattern. Contrast seen within the colon.
[2025-05-14 11:20] LABS: Base Excess 0.1 mmol/L (-2.0-3.0)
[2025-05-14] MEDS: VANCOMYCIN 1GM/250ML KIT 250 ML IV SCH (12:46)
--- NOTE | 2025-05-14 15:11 | DVH ---
CHEST RADIOGRAPH Indication: NG tube placement verification Technique: Single frontal view of the chest was obtained Comparison: XY CHEST PORTABLE on DOS: 05/14/25, XY CHEST PORTABLE on DOS: 05/13/25, XY CHEST PORTABLE on DOS: 05/11/25 FINDINGS: Lines and Tubes: PICC line from right arm in place with the tip in the superior vena cava of the right atrium. ETT not as well seen on the current study correlate clinically. Lungs: Bibasilar hypoventilation left worse than right Pleura: No effusion. No pneumothorax. Cardiomediastinal contours: Unremarkable Bones: No acute osseous abnormality. IMPRESSION: 1. Bibasilar hypoventilation left worse than right. 2. PICC line in place from right arm with the tip in the superior vena cava. 3. Endotracheal tube placenta appear significantly changed..
--- NOTE | 2025-05-14 16:43 | DVHPN2 ---
Progress Note Date Seen: May 14, 2025 Resident Creating Document: HOLLY DEAN RESIDENT Medical Necessity Reason Pt with a Central, PICC or Fol: Yes The following are medically ne: PICC Line, Grewal Catheter Subjective Review of Systems Patient seen and examined with the bedside Weaned off sedation No bowel movement reported OG tube removed and NG tube has been inserted H&H stable Objective vital signs Vital Sign Date Time Temp Pulse Resp B/P (MAP) Pulse Ox O2 Delivery O2 Flow Rate FiO2 05/14/25 16:00 30 05/14/25 16:00 22 100 Mechanical Ventilator+ 05/14/25 16:00 97.5 88 109/44 (65) 97.5 Total Intake and Output 05/13/25 05/13/25 05/14/25 15:00 23:00 07:00 Intake Total 865.616 ml 801.469 ml 820.85 ml Output Total 1900 ml 1150 ml Balance 865.616 ml -1098.531 ml -329.15 ml medications Current Medications Medications Dose Ordered Sig/Gregory Route Start Time Stop Time Status Last Admin Dose Admin Pantoprazole Sodium 40 mg DAILY IV 04/16/25 10:00 05/14/25 11:01 40 MG Amino Acids 0 ml @ 0 mls/hr PER PHARMACY IV 04/18/25 17:45 Sodium Chloride 10 ml QSHIFT@10,22 IV 04/21/25 22:00 05/14/25 11:01 10 ML Albuterol 2.5 mg Q3HPRN PRN NEB 04/24/25 16:15 05/08/25 12:13 2.5 MG Nicardipine/ Sodium Chloride 200 ml @ 50 mls/hr Q4H IV 04/25/25 09:45 Diagnostic Test (Pha) 1 strip Q6HR 04/30/25 12:00 05/14/25 11:46 1 STRIP Insulin Human Regular FOLLOW SLIDING SCALE Q6HR SC 04/30/25 12:00 05/14/25 00:03 2 UNITS Dextrose 50 ml UD IV 04/30/25 09:00 05/09/25 00:20 50 ML Lidocaine 1 patch DAILY TOP 04/30/25 10:30 05/14/25 10:59 1 PATCH Morphine Sulfate 1 mg Q6HP PRN IV 04/30/25 10:30 05/02/25 17:58 1 MG Metoprolol Tartrate 2.5 mg Q4HR PRN IV 04/30/25 11:30 05/13/25 13:07 2.5 MG Oxycodone/ Acetaminophen 1 tab Q6HP PRN PO 05/02/25 10:00 Docusate Sodium 100 mg BID PO 05/02/25 10:00 05/14/25 11:01 100 MG Propofol 100 ml @ 1.296 mls/ hr Q24H IV 05/02/25 20:45 05/13/25 17:42 10.368 MLS/HR Fentanyl Citrate 250 ml @ 2.5 mls/hr Q24H IV 05/02/25 20:45 05/14/25 15:06 10 MLS/HR Acetylcysteine 100 mg Q4HR NEB 05/05/25 10:00 UNV Enoxaparin Sodium 50 mg Q12HR SC 05/07/25 22:00 05/14/25 11:00 50 MG Vancomycin HCl 0 ml @ 0 mls/hr PER PHARMACY IV 05/09/25 10:30 Acetaminophen 650 mg Q6HP PRN [place] 05/09/25 10:30 Meropenem 50 ml @ 17 mls/hr Q12HR IV 05/09/25 14:00 05/14/25 10:59 17 MLS/HR Vancomycin HCl 250 ml @ 200 mls/hr Q12H IV 05/09/25 18:00 Cancel Dextrose/Sodium Chloride 1,000 ml @ 30 mls/hr Q24H IV 05/10/25 18:15 05/13/25 19:30 30 MLS/HR Levalbuterol HCl 0.625 mg Q8HR NEB 05/11/25 14:00 05/14/25 13:36 0.625 MG Ipratropium [place] 0.5 mg Q8HR NEB 05/11/25 14:00 05/14/25 13:36 0.5 MG Acetylcysteine 100 mg Q8HR NEB 05/11/25 14:00 05/14/25 13:36 100 MG Metoclopramide HCl 5 mg Q8H IV 05/11/25 18:00 05/14/25 11:00 5 MG Potassium Acetate 40 meq/Potassium Phosphate 22 meq/ Calcium Gluconate 6.975 meq/ Magnesium Sulfate 22 meq/ Multivitamins 10 ml/Chromium/ Copper/Manganese/ Zinc 1 ml/Amino Acids/Dextrose/ Purified Water 1,256.5 ml @ 52 mls/hr [id number] IV 05/13/25 22:00 05/14/25 21:59 05/13/25 21:57 52 MLS/HR Vancomycin HCl 250 ml @ 250 mls/hr Q12H IV 05/14/25 13:00 05/14/25 12:46 250 MLS/HR Potassium Acetate 40 meq/Potassium Phosphate 35 meq/ Calcium Gluconate 6.975 meq/ Magnesium Sulfate 26 meq/ Multivitamins 10 ml/Chromium/ Copper/Manganese/ Zinc 1 ml/Amino Acids/Dextrose 1,160.4545 ml @ 48.6 mls/hr [id number] IV 05/14/25 22:00 05/15/25 21:59 Cancel Potassium Acetate 40 meq/Potassium Phosphate 35 meq/ Calcium Gluconate 6.975 meq/ Magnesium Sulfate 26 meq/ Multivitamins 10 ml/Chromium/ Copper/Manganese/ Zinc 1 ml/Amino Acids/Dextrose/ Purified Water 1,260.4545 ml @ 52 mls/hr [id number] IV 05/14/25 22:00 05/15/25 21:59 Examination General Appearance: Intubated sedated HEENT: PERRLA, EOMI Lungs: Decreased breath sound on left lower lung. High-flow at 50% FiO2 Cardiovascular: Normal S1, Normal S2 Abdomen: No tenderness, No hepatospenomegaly, hypoactive bowel sounds, surgical wound dry Genitourinary: No Apparent Abnormalities (Grewal catheter) Musculoskeletal: Normal sensory function, Normal motor function Extremities: No edema, Normal pulses, No tenderness/swelling laboratory and microbiology Laboratory Tests 05/14/25 04:00 Test 05/14/25 04:00 Range/Units Serum Glucose 98 74-106 mg/dL Microbiology Date/Time Source Procedure Growth Status 05/09/25 11:22 Blood Blood Culture - Final NO GROWTH AFTER 5 DAYS OF INCUBATION. Complete 05/02/25 20:30 Sputum Gram Stain - Final Complete 05/02/25 20:30 Sputum Respiratory Culture - Final Complete 05/02/25 00:00 Nose MRSA Screen - Final Complete 04/30/25 14:30 Pleural Fluid Gram Stain - Final Complete 04/30/25 14:30 Pleural Fluid Body Fluid Culture - Final Complete Problem List/Assessment/Plan Problem List/Assessment/Plan Assessment Small-bowel obstruction s/p exploratory laparotomy with a possible transition point Choledocholithiasis Left lung atelectasis likely due to aspiration Status post bronchoscopy Plan - intubated and on mechanical ventilation - KUB on 05/14 showed showed nonobstructive bowel gas pattern with contrast seen within the colon - NG tube to LIS - continue on TPN and NPO - diet to be advanced as per primary surgeon PUD prophylaxis with Protonix Plan discussed with Dr. Cui Plan discussed with: Other (KIA Joshi) Dietary Evaluation Review Recommendations by RD: PPN/TPN Comments: 1) Increase TPN to meet at least 75% estimated daily needs 2) Advance to cardiac diet when medically feasible 3) Follow-up with gastroenterology and neurology 4) Continue to monitor I&O, labs, and skin integrity Expected Outcomes/Goals: 1) nutrition support to meet at least 75% estimated daily needs 2) labs to improve 3) diet to advance 4) gradual wt gain 5) f/u in 2-3 days HOLLY DEAN RESIDENT May 14, 2025 16:43
[2025-05-14] MEDS: TPN PER PHARMACY IV NR (22:52)
--- NOTE | 2025-05-14 23:31 | DVHPN2 ---
Subjective DOS: 05/14/2025 Patient seen and examined at bedside. Sedated, intubated on mechanical ventilator. Overnight events reviewed. Reviewed: Care Plan, H&P, Labs, Medications Changes from previous H/P or p: No Changes General: Per HPI Objective Vitals Vital Signs Date Time Temp Pulse Resp B/P (MAP) Pulse Ox O2 Delivery O2 Flow Rate FiO2 05/14/25 22:32 103 22 97/39 (58) 100 30 05/14/25 22:00 Mechanical Ventilator+ 05/14/25 16:00 97.5 97.5 Intake/Output Intake and Output 05/14/25 07:00 Intake Total 2487.935 ml Output Total 3050 ml Balance -562.065 ml Intake Oral 60 ml IV Total 2427.935 ml Output Urine Total 2950 ml Gastric Drainage Total 100 ml General Appearance: mild distress, Other (Intubated and sedated) HEENT: Atraumatic, PERRLA, Other Lungs: Other (On vent. Transmitted breath sounds bilaterally. Decreased air entry bilaterally. No wheezing. Bibasilar crackles.) Cardiovascular: Normal S1, Normal S2, Other (A. Fib with RVR) Abdomen: No tenderness, No hepatospenomegaly, Other (Hypoactive bowel sounds.) Genitourinary: No Apparent Abnormalities (Grewal catheter) Musculoskeletal: Normal sensory function, Normal motor function Extremities: No edema, Normal pulses, No tenderness/swelling Neuro: Cranial nerves 3-12 NL, Other Skin: Dry, Intact, Wounds, Other (Surgical wound D&I) Psych/Mental Status: Mood NL Medications Current Medications Medications Dose Ordered Sig/Gregory Route Start Time Stop Time Status Last Admin Dose Admin Pantoprazole Sodium 40 mg DAILY IV 04/16/25 10:00 05/14/25 11:01 40 MG Amino Acids 0 ml @ 0 mls/hr PER PHARMACY IV 04/18/25 17:45 Sodium Chloride 10 ml QSHIFT@10,22 IV 04/21/25 22:00 05/14/25 22:52 10 ML Albuterol 2.5 mg Q3HPRN PRN NEB 04/24/25 16:15 05/08/25 12:13 2.5 MG Nicardipine/ Sodium Chloride 200 ml @ 50 mls/hr Q4H IV 04/25/25 09:45 Diagnostic Test (Pha) 1 strip Q6HR 04/30/25 12:00 05/14/25 18:18 1 STRIP Insulin Human Regular FOLLOW SLIDING SCALE Q6HR SC 04/30/25 12:00 05/14/25 00:03 2 UNITS Dextrose 50 ml UD IV 04/30/25 09:00 05/09/25 00:20 50 ML Lidocaine 1 patch DAILY TOP 04/30/25 10:30 05/14/25 10:59 1 PATCH Morphine Sulfate 1 mg Q6HP PRN IV 04/30/25 10:30 05/02/25 17:58 1 MG Metoprolol Tartrate 2.5 mg Q4HR PRN IV 04/30/25 11:30 05/14/25 18:58 2.5 MG Oxycodone/ Acetaminophen 1 tab Q6HP PRN PO 05/02/25 10:00 Docusate Sodium 100 mg BID PO 05/02/25 10:00 05/14/25 22:52 100 MG Propofol 100 ml @ 1.296 mls/ hr Q24H IV 05/02/25 20:45 05/14/25 19:48 6.48 MLS/HR Fentanyl Citrate 250 ml @ 2.5 mls/hr Q24H IV 05/02/25 20:45 05/14/25 15:06 10 MLS/HR Acetylcysteine 100 mg Q4HR NEB 05/05/25 10:00 UNV Enoxaparin Sodium 50 mg Q12HR SC 05/07/25 22:00 05/14/25 22:46 50 MG Vancomycin HCl 0 ml @ 0 mls/hr PER PHARMACY IV 05/09/25 10:30 Acetaminophen 650 mg Q6HP PRN [place] 05/09/25 10:30 Meropenem 50 ml @ 17 mls/hr Q12HR IV 05/09/25 14:00 05/14/25 22:35 17 MLS/HR Vancomycin HCl 250 ml @ 200 mls/hr Q12H IV 05/09/25 18:00 Cancel Dextrose/Sodium Chloride 1,000 ml @ 30 mls/hr Q24H IV 05/10/25 18:15 05/13/25 19:30 30 MLS/HR Levalbuterol HCl 0.625 mg Q8HR NEB 05/11/25 14:00 05/14/25 22:25 0.625 MG Ipratropium [place] 0.5 mg Q8HR NEB 05/11/25 14:00 05/14/25 22:25 0.5 MG Acetylcysteine 100 mg Q8HR NEB 05/11/25 14:00 05/14/25 22:25 100 MG Metoclopramide HCl 5 mg Q8H IV 05/11/25 18:00 05/14/25 18:17 5 MG Vancomycin HCl 250 ml @ 250 mls/hr Q12H IV 05/14/25 13:00 05/14/25 12:46 250 MLS/HR Potassium Acetate 40 meq/Potassium Phosphate 35 meq/ Calcium Gluconate 6.975 meq/ Magnesium Sulfate 26 meq/ Multivitamins 10 ml/Chromium/ Copper/Manganese/ Zinc 1 ml/Amino Acids/Dextrose 1,160.4545 ml @ 48.6 mls/hr [id number] IV 05/14/25 22:00 05/15/25 21:59 Cancel Potassium Acetate 40 meq/Potassium Phosphate 35 meq/ Calcium Gluconate 6.975 meq/ Magnesium Sulfate 26 meq/ Multivitamins 10 ml/Chromium/ Copper/Manganese/ Zinc 1 ml/Amino Acids/Dextrose/ Purified Water 1,260.4545 ml @ 52 mls/hr [id number] IV 05/14/25 22:00 05/15/25 21:59 05/14/25 22:52 52 MLS/HR Laboratory Results Laboratory Tests 05/14/25 04:00 Chemistry Test 05/14/25 04:00 Albumin 2.6 g/dL (3.2-4.8) L Calcium Level 7.6 mg/dL (8.7-10.4) L Magnesium Level 1.8 mg/dL (1.6-2.6) Phosphorus Level 2.7 mg/dL (2.4-5.1) Total Protein 4.9 g/dL (5.7-8.2) L LFT Test 05/14/25 04:00 Alanine Aminotransferase (ALT) 45 U/L (7-40) H Alkaline Phosphatase 142 U/L (46-116) H Aspartate Amino Transferase (AST) 36 U/L (13-40) Total Bilirubin 0.3 mg/dL (0.2-1.0) Urinalysis Test 04/15/25 15:45 05/11/25 14:35 Urine Amorphous Crystals Few /hpf (None Seen) Urine Hyaline Casts Few /lpf (0 - 2) Urine Mucus Few (None Seen) Urine Color Light-yellow (Yellow) Urine Clarity Clear (Clear) Urine pH 7.0 (5.0-9.0) Urine Specific [place] 1.021 (1.001-1.035) Urine Protein Negative (Negative) Urine Ketones Negative (Negative) Urine Blood 1+ /uL (Negative) H Urine Nitrite Negative (Negative) Urine Bilirubin Negative (Negative) Urine Urobilinogen Normal mg/dL (Negative) Urine Leukocyte Esterase Negative /uL (Negative) Urine RBC 55 /hpf (0 - 4) Urine Microscopic WBC 1 /HPF (0-5) Urine Squamous Epithelial Cells Few /hpf (<5) Urine Bacteria None seen /hpf (None Seen) Urine Glucose Normal mg/dL (Normal) Blood Gas Results Test 05/14/25 07:12 05/14/25 11:13 Arterial Blood pH 7.477 (7.350-7.450) 7.469 (7.350-7.450) FiO2 % 30.0 30.0 Microbiology Microbiology Date/Time Source Procedure Growth Status 05/09/25 11:22 Blood Blood Culture - Final NO GROWTH AFTER 5 DAYS OF INCUBATION. Complete 05/02/25 20:30 Sputum Gram Stain - Final Complete 05/02/25 20:30 Sputum Respiratory Culture - Final Complete 05/02/25 00:00 Nose MRSA Screen - Final Complete 04/30/25 14:30 Pleural Fluid Gram Stain - Final Complete 04/30/25 14:30 Pleural Fluid Body Fluid Culture - Final Complete Assessment/Plan Assessment/Plan Impression: Acute hypoxic respiratory failure On mechanical ventilator Atelectasis Lung collapse Pneumonia Hx of nicotine dependence Cachexia, BMI 17.4 Small bowel obstruction Events: Patient seen and examined at bedside. Remains on mechanical ventilator On AC mode; RR 22, VT 450, PEEP 5, FiO2 30% Sedated on Propofol On Fentanyl drip for analgesia ABG notable for alkalemia Chest x-ray stable, bibasilar hypoventilation left worse than right. Devices in place. Awaiting Surgery recs for possible surgical intervention. Surgery plans for exploratory laparotomy. Patient's laparotomy scheduled for 05/12/25 was canceled as contrast were seen in the sigmoid colon suggestive of ileus. NG tube output has decreased Patient has not had any bowel movement yet CT abdomen/pelvis revealed suspicion for ileus versus bowel obstruction given retention of contrast primarily in the proximal small bowel. Trace bilateral pleural effusions with atelectasis and consolidation of the left lower lobe. Chronic ompression deformities. Left-sided pleural effusion with suspected consolidation of the left lower lobe with air bronchograms. Contrast did not reach colon up to 6 hours during small-bowel series ; dilated small bowel loops. Patient remains NPO TPN for nutritional support Continue daily CPAP trials, SBT. Will await surgical clearance before proceeding to extubation. Continue CPAP in the AM for exercise. Awaiting family meeting for discussion on goals of care. Hemoglobin stable Monitor for fevers Continue TPN for nutritional support Continue NGT to LIS - monitor output GI recs appreciated Protonix for GI ppx Continue bronchodilators Mucolytics with Mucomyst Chest percussive therapy Continue antibiotics Continue antifungals Incentive spirometry Continue IV fluids with D5-LR Supportive care. Wound care. HOB elevation Aspiration precautions S/p bronchoscopy on 04/26/25 with clearance of copious secretions in L1-L10. Endobronchial lesion in left mainstem bronchus, biopsied. Follow up biopsy results. CT chest demonstrated improved aeration of left upper lobe Repeat bronchoscopy was performed on 04/30/25 with removal of mucous plugs in left lower lobe bronchus. Left thoracentesis was performed on 04/30/25 with removal of 250 mL serosanguineous fluid. Pleural fluid cultures showed no growth Labs and imaging reviewed. Rest of plan as noted below. Plan: s/p intubation on mechanical ventilator. On AC mode; RR 22, VT 450, PEEP 5, FiO2 30% Titrate FIO2 to keep O2 saturation above 90%. VAP bundle. Daily ABG and CXR while intubated Sedate for vent synchrony Pressors for hemodynamic support Titrate to keep mean arterial pressure greater than 65 mmHg Plan for surgery due to small bowel obstruction Follow up Surgery recommendations. Continue bronchodilators. Continue antibiotics Incentive spirometry Head of bed elevation Aspiration precautions NGT in place TPN for nutritional support Monitor renal function. Monitor electrolytes. Supplement as necessary. Monitor ins and outs. DVT prophylaxis. Prognosis: Poor given patient's multiple co-morbidities. Condition: Critical Rest of plan per hospitalist and other consultants. A total of 35 minutes of critical care time was spent reviewing the patient record, examining the patient, making a diagnostic and therapeutic plan, discussing this plan with the medical personnel, following up on diagnostic studies and following the patient for clinical stability excluding any and all procedures. At least 50% of this time was spent in direct, [id number] contact. Thank you, JESÚS Ford, for allowing me to participate in this patient's care. Further recommendations will depend on the patient's clinical course. Please do not hesitate to contact me if you have any questions or concerns. This medical document was created using an electronic medical record system with [employer] dictation system. Although these documentations are being carefully reviewed, there may still be some phonetic and typographical changes. The errors are purely typographical, due to imperfection on the software program, and do not reflect any compromise in the patient's medical care. Plan discussed with: Other (RN Carlin) Visit Coding Pulmonary Billing Provider: KARENA WESTFALL MD Date of Service if different f: May 14, 2025 Common Visit Codes: [id number] INP/OBS CARE(HIGH), [id number] CARE 30-74 MIN KARENA WESTFALL MD May 14, 2025 23:31
[2025-05-15] VITALS (88 sets, daily range): BP systolic 87–144; BP diastolic 38–66; PULSE 69–120; RESP 16–31; TEMP 97.5–100.2; O2SAT 10–100
[2025-05-15] MEDS: AMIODARONE BOLUS KIT 100 ML IV ONE (01:11)
[2025-05-15 04:16] LABS: Hematocrit 25.7 % (36.0-46.0); Hemoglobin 8.4 g/dL (12.2-16.2); Mean Corpuscular Hemoglobin 33.3 pg (28.0-32.0); Mean Corpuscular Volume 101.3 fL (80.0-100.0); Nucleated Red Blood Cells % 0.0 %
[2025-05-15 04:40] LABS: Anion Gap 11 (5-15); BUN/Creatinine Ratio 80.0 (10.0-20.0); Carbon Dioxide 26 mmol/L (20-31); Magnesium 1.8 mg/dL (1.6-2.6); Sodium 144 mmol/L (136-145)
[2025-05-15 04:50] LABS: Alanine Aminotransferase 53 U/L (7-40); Albumin 2.7 g/dL (3.2-4.8); Alkaline Phosphatase 144 U/L (46-116); Bilirubin, Total 0.3 mg/dL (0.2-1.0); Blood Urea Nitrogen 24 mg/dL (9-23); Calcium 7.6 mg/dL (8.7-10.4); Chloride 107 mmol/L (98-107); Glucose 133 mg/dL (74-106); Potassium 3.2 mmol/L (3.5-5.1); Total Protein 4.9 g/dL (5.7-8.2)
--- NOTE | 2025-05-15 05:40 | DVH ---
CHEST RADIOGRAPH Indication: NG TUBE PLACEMENT VERIFICATIN AND INTUBATED Technique: Single frontal view of the chest was obtained COMPARISON: XY CHEST PORTABLE on DOS: 05/14/25, XY CHEST PORTABLE on DOS: 05/14/25, XY CHEST PORTABLE on DOS: 05/13/25, XY CHEST PORTABLE on DOS: 05/11/25, XY CHEST PORTABLE on DOS: 05/08/25 FINDINGS: Lines and Tubes: Endotracheal tube, enteric catheter and right PICC in satisfactory position. Lungs: Unchanged left lower lobe airspace disease. Unchanged pulmonary vascular congestion. Slightly improved aeration of the right lower lobe. Pleura: No effusion.No pneumothorax. Cardiomediastinal contours: Unremarkable Bones: Unremarkable IMPRESSION: Lines and tubes in satisfactory position. Unchanged left lower lobe airspace disease. Slightly improved aeration of the right lower lobe.
[2025-05-15] MEDS: POTASSIUM CHL 20MEQ/100ML 100 ML IV ONE (05:59)
[2025-05-15 06:50] LABS: Base Excess 1.8 mmol/L (-2.0-3.0)
[2025-05-15] MEDS: DOCUSATE ORAL LIQUID 100 MG/10 ML UD PO SCH (09:49)
--- NOTE | 2025-05-15 09:51 | DVHPN2 ---
Subjective Intubated and following commands Reviewed: Care Plan, H&P, Labs, Medications Changes from previous H/P or p: No Changes General: Per HPI Objective Vitals Vital Signs Date Time Temp Pulse Resp B/P (MAP) Pulse Ox O2 Delivery O2 Flow Rate FiO2 05/15/25 08:15 86 23 109/40 (63) 99 30 05/15/25 05:43 Mechanical Ventilator+ 05/15/25 04:00 97.5 97.5 Intake/Output Intake and Output 05/15/25 06:59 Intake Total 2826.908 ml Output Total 1900 ml Balance 926.908 ml Intake Oral 30 ml IV Total 2796.908 ml Output Urine Total 1750 ml Gastric Drainage Total 150 ml General Appearance: mild distress, Other (Intubated and sedated) HEENT: Atraumatic, PERRLA, Other Lungs: Other (On vent. Transmitted breath sounds bilaterally. Decreased air entry bilaterally. No wheezing. Bibasilar crackles.) Cardiovascular: Normal S1, Normal S2, Other (Fibrillation with controlled rate) Abdomen: No tenderness, No hepatospenomegaly, Other (Hypoactive bowel sounds.) Genitourinary: No Apparent Abnormalities (Grewal catheter) Musculoskeletal: Normal sensory function, Normal motor function Extremities: No edema, Normal pulses, No tenderness/swelling Neuro: Cranial nerves 3-12 NL, Other Skin: Dry, Intact, Wounds, Other (Surgical wound D&I) Psych/Mental Status: Mood NL Medications Current Medications Medications Dose Ordered Sig/Gregory Route Start Time Stop Time Status Last Admin Dose Admin Pantoprazole Sodium 40 mg DAILY IV 04/16/25 10:00 05/15/25 09:26 40 MG Amino Acids 0 ml @ 0 mls/hr PER PHARMACY IV 04/18/25 17:45 Sodium Chloride 10 ml QSHIFT@10,22 IV 04/21/25 22:00 05/15/25 09:26 10 ML Albuterol 2.5 mg Q3HPRN PRN NEB 04/24/25 16:15 05/15/25 05:44 2.5 MG Nicardipine/ Sodium Chloride 200 ml @ 50 mls/hr Q4H IV 04/25/25 09:45 Diagnostic Test (Pha) 1 strip Q6HR 04/30/25 12:00 05/15/25 05:15 1 STRIP Insulin Human Regular FOLLOW SLIDING SCALE Q6HR SC 04/30/25 12:00 05/14/25 00:03 2 UNITS Dextrose 50 ml UD IV 04/30/25 09:00 05/09/25 00:20 50 ML Lidocaine 1 patch DAILY TOP 04/30/25 10:30 05/15/25 09:26 1 PATCH Morphine Sulfate 1 mg Q6HP PRN IV 04/30/25 10:30 05/02/25 17:58 1 MG Metoprolol Tartrate 2.5 mg Q4HR PRN IV 04/30/25 11:30 05/14/25 23:33 2.5 MG Oxycodone/ Acetaminophen 1 tab Q6HP PRN PO 05/02/25 10:00 Propofol 100 ml @ 1.296 mls/ hr Q24H IV 05/02/25 20:45 05/15/25 07:22 5.184 MLS/HR Fentanyl Citrate 250 ml @ 2.5 mls/hr Q24H IV 05/02/25 20:45 05/14/25 15:06 10 MLS/HR Acetylcysteine 100 mg Q4HR NEB 05/05/25 10:00 UNV Enoxaparin Sodium 50 mg Q12HR SC 05/07/25 22:00 05/15/25 09:25 50 MG Vancomycin HCl 0 ml @ 0 mls/hr PER PHARMACY IV 05/09/25 10:30 Acetaminophen 650 mg Q6HP PRN [place] 05/09/25 10:30 Meropenem 50 ml @ 17 mls/hr Q12HR IV 05/09/25 14:00 05/15/25 09:25 17 MLS/HR Vancomycin HCl 250 ml @ 200 mls/hr Q12H IV 05/09/25 18:00 Cancel Dextrose/Sodium Chloride 1,000 ml @ 30 mls/hr Q24H IV 05/10/25 18:15 05/13/25 19:30 30 MLS/HR Levalbuterol HCl 0.625 mg Q8HR NEB 05/11/25 14:00 05/15/25 05:44 0.625 MG Ipratropium [place] 0.5 mg Q8HR NEB 05/11/25 14:00 05/15/25 05:44 0.5 MG Acetylcysteine 100 mg Q8HR NEB 05/11/25 14:00 05/15/25 05:45 100 MG Metoclopramide HCl 5 mg Q8H IV 05/11/25 18:00 05/15/25 09:25 5 MG Vancomycin HCl 250 ml @ 250 mls/hr Q12H IV 05/14/25 13:00 05/15/25 01:22 250 MLS/HR Potassium Acetate 40 meq/Potassium Phosphate 35 meq/ Calcium Gluconate 6.975 meq/ Magnesium Sulfate 26 meq/ Multivitamins 10 ml/Chromium/ Copper/Manganese/ Zinc 1 ml/Amino Acids/Dextrose 1,160.4545 ml @ 48.6 mls/hr [id number] IV 05/14/25 22:00 05/15/25 21:59 Cancel Potassium Acetate 40 meq/Potassium Phosphate 35 meq/ Calcium Gluconate 6.975 meq/ Magnesium Sulfate 26 meq/ Multivitamins 10 ml/Chromium/ Copper/Manganese/ Zinc 1 ml/Amino Acids/Dextrose/ Purified Water 1,260.4545 ml @ 52 mls/hr [id number] IV 05/14/25 22:00 05/15/25 21:59 05/14/25 22:52 52 MLS/HR Amiodarone HCl 250 ml @ 16.66 mls/ hr Q15H1M IV 05/15/25 07:15 05/15/25 07:22 16.66 MLS/HR Docusate Sodium 100 mg BID PO 05/15/25 10:00 Laboratory Results Laboratory Tests 05/15/25 04:00 Chemistry Test 05/15/25 04:00 Albumin 2.7 g/dL (3.2-4.8) L Calcium Level 7.6 mg/dL (8.7-10.4) L Magnesium Level 1.8 mg/dL (1.6-2.6) Phosphorus Level 2.4 mg/dL (2.4-5.1) Total Protein 4.9 g/dL (5.7-8.2) L LFT Test 05/15/25 04:00 Alanine Aminotransferase (ALT) 53 U/L (7-40) H Alkaline Phosphatase 144 U/L (46-116) H Aspartate Amino Transferase (AST) 42 U/L (13-40) H Total Bilirubin 0.3 mg/dL (0.2-1.0) Urinalysis Test 04/15/25 15:45 119/25 14:35 Urine Amorphous Crystals Few /hpf (None Seen) Urine Hyaline Casts Few /lpf (0 - 2) Urine Mucus Few (None Seen) Urine Color Light-yellow (Yellow) Urine Clarity Clear (Clear) Urine pH 7.0 (5.0-9.0) Urine Specific [place] 1.021 (1.001-1.035) Urine Protein Negative (Negative) Urine Ketones Negative (Negative) Urine Blood 1+ /uL (Negative) H Urine Nitrite Negative (Negative) Urine Bilirubin Negative (Negative) Urine Urobilinogen Normal mg/dL (Negative) Urine Leukocyte Esterase Negative /uL (Negative) Urine RBC 55 /hpf (0 - 4) Urine Microscopic WBC 1 /HPF (0-5) Urine Squamous Epithelial Cells Few /hpf (<5) Urine Bacteria None seen /hpf (None Seen) Urine Glucose Normal mg/dL (Normal) Blood Gas Results Test 05/14/25 11:13 05/15/25 06:42 Arterial Blood pH 7.469 (7.350-7.450) 7.458 (7.350-7.450) FiO2 % 30.0 30.0 Microbiology Microbiology Date/Time Source Procedure Growth Status 05/09/25 11:22 Blood Blood Culture - Final NO GROWTH AFTER 5 DAYS OF INCUBATION. Complete 05/02/25 20:30 Sputum Gram Stain - Final Complete 05/02/25 20:30 Sputum Respiratory Culture - Final Complete 05/02/25 00:00 Nose MRSA Screen - Final Complete 04/30/25 14:30 Pleural Fluid Gram Stain - Final Complete 04/30/25 14:30 Pleural Fluid Body Fluid Culture - Final Complete Labs and/or images reviewed: Labs reviewed by me, Image(s) reviewed by me Assessment/Plan Assessment/Plan Impression: -choledocholithiasis -acute pancreatitis -small-bowel obstruction -dementia -cachexia -sepsis -COPD -GERD -Post op delirium -Accelerated HTN -A. fib Plan: Events: Patient had small BM yesterday evening. Noted 100 mL gastric residual from NG tube today. Repeat enema. CPAP trial. -IV Reglan 5 mg q.8 hours -Continue TPN -Continue current abx -PPI -full-dose anticoagulation -continue bronchodilators, Mucomyst -repeat labs and chest x-ray in a.m. Critical care time spent with patient discussing and formulating plan of care: 40 minutes. This does not include time spent performing procedures. This medical document was created using an electronic medical record system with [employer] dictation system. Although this document has been carefully reviewed, there may still be some phonetic and typographical errors. These areas are purely typographical due to imperfections of the software programs, and do not reflect any compromise in the patient's medical care. Plan discussed with: Patient, Other (RN) My Orders Orders - JAYDEN HILL NP Procedure Category Date Status Time Abg W/ Co-Ox RT 05/14/25 Logged 11:00 Chest Portable XY 05/14/25 Resulted 13:41 Chest Portable XY 05/15/25 Resulted 04:00 Abg W/ Co-Ox RT 05/15/25 Logged 06:00 Docusate Sodium PHA 05/15/25 In Process Liquid (Colace Liquid) 10:00 Cpap Trial For Am ORDERS 05/15/25 Transmitted 09:38 Fleet Enema Adult PHA 05/15/25 Logged 09:45 Complete Blood Count LAB 05/16/25 Verified 04:00 Magnesium Sulfate PHA 05/15/25 Logged 1gm/100ml 09:45 Date of Service: May 15, 2025 Billing Provider: JAYDEN HILL NP Common Visit Codes: [id number] CARE 30-74 MIN JAYDEN HILL NP May 15, 2025 09:51
[2025-05-15] MEDS: FLEET ENEMA(ADULT) 135 ML PR ONE (11:10)
[2025-05-15] MEDS: MAGNESIUM SULFATE 1GM/100ML 100 ML IV ONE (11:14)
--- NOTE | 2025-05-15 11:47 | DVHPN2 ---
Progress Note Date Seen: May 15, 2025 Medical Necessity Reason Pt with a Central, PICC or Fol: Yes The following are medically ne: PICC Line, Grewal Catheter Objective vital signs Vital Sign Date Time Temp Pulse Resp B/P (MAP) Pulse Ox O2 Delivery O2 Flow Rate FiO2 05/15/25 10:30 92 22 120/53 (75) 99 05/15/25 10:00 30 05/15/25 10:00 Mechanical Ventilator+ 05/15/25 08:00 97.8 97.8 Total Intake and Output 05/14/25 05/14/25 05/15/25 15:00 23:00 07:00 Intake Total 977.736 ml 515.592 ml 1251.58 ml Output Total 900 ml 1000 ml Balance 977.736 ml -384.408 ml 251.58 ml medications Current Medications Medications Dose Ordered Sig/Gregory Route Start Time Stop Time Status Last Admin Dose Admin Pantoprazole Sodium 40 mg DAILY IV 04/16/25 10:00 05/15/25 09:26 40 MG Amino Acids 0 ml @ 0 mls/hr PER PHARMACY IV 04/18/25 17:45 Sodium Chloride 10 ml QSHIFT@10,22 IV 04/21/25 22:00 05/15/25 09:26 10 ML Albuterol 2.5 mg Q3HPRN PRN NEB 04/24/25 16:15 05/15/25 05:44 2.5 MG Nicardipine/ Sodium Chloride 200 ml @ 50 mls/hr Q4H IV 04/25/25 09:45 Diagnostic Test (Pha) 1 strip Q6HR 04/30/25 12:00 05/15/25 05:15 1 STRIP Insulin Human Regular FOLLOW SLIDING SCALE Q6HR SC 04/30/25 12:00 05/14/25 00:03 2 UNITS Dextrose 50 ml UD IV 04/30/25 09:00 05/09/25 00:20 50 ML Lidocaine 1 patch DAILY TOP 04/30/25 10:30 05/15/25 09:26 1 PATCH Morphine Sulfate 1 mg Q6HP PRN IV 04/30/25 10:30 05/02/25 17:58 1 MG Metoprolol Tartrate 2.5 mg Q4HR PRN IV 04/30/25 11:30 05/14/25 23:33 2.5 MG Propofol 100 ml @ 1.296 mls/ hr Q24H IV 05/02/25 20:45 05/15/25 07:22 5.184 MLS/HR Fentanyl Citrate 250 ml @ 2.5 mls/hr Q24H IV 05/02/25 20:45 05/14/25 15:06 10 MLS/HR Acetylcysteine 100 mg Q4HR NEB 05/05/25 10:00 UNV Enoxaparin Sodium 50 mg Q12HR SC 05/07/25 22:00 05/15/25 09:25 50 MG Vancomycin HCl 0 ml @ 0 mls/hr PER PHARMACY IV 05/09/25 10:30 Acetaminophen 650 mg Q6HP PRN [place] 05/09/25 10:30 Meropenem 50 ml @ 17 mls/hr Q12HR IV 05/09/25 14:00 05/15/25 09:25 17 MLS/HR Vancomycin HCl 250 ml @ 200 mls/hr Q12H IV 05/09/25 18:00 Cancel Dextrose/Sodium Chloride 1,000 ml @ 30 mls/hr Q24H IV 05/10/25 18:15 05/13/25 19:30 30 MLS/HR Levalbuterol HCl 0.625 mg Q8HR NEB 05/11/25 14:00 05/15/25 05:44 0.625 MG Ipratropium [place] 0.5 mg Q8HR NEB 05/11/25 14:00 05/15/25 05:44 0.5 MG Acetylcysteine 100 mg Q8HR NEB 05/11/25 14:00 05/15/25 05:45 100 MG Metoclopramide HCl 5 mg Q8H IV 05/11/25 18:00 05/15/25 09:25 5 MG Vancomycin HCl 250 ml @ 250 mls/hr Q12H IV 05/14/25 13:00 05/15/25 01:22 250 MLS/HR Potassium Acetate 40 meq/Potassium Phosphate 35 meq/ Calcium Gluconate 6.975 meq/ Magnesium Sulfate 26 meq/ Multivitamins 10 ml/Chromium/ Copper/Manganese/ Zinc 1 ml/Amino Acids/Dextrose 1,160.4545 ml @ 48.6 mls/hr [id number] IV 05/14/25 22:00 05/15/25 21:59 Cancel Potassium Acetate 40 meq/Potassium Phosphate 35 meq/ Calcium Gluconate 6.975 meq/ Magnesium Sulfate 26 meq/ Multivitamins 10 ml/Chromium/ Copper/Manganese/ Zinc 1 ml/Amino Acids/Dextrose/ Purified Water 1,260.4545 ml @ 52 mls/hr [id number] IV 05/14/25 22:00 05/15/25 21:59 05/14/25 22:52 52 MLS/HR Amiodarone HCl 250 ml @ 16.66 mls/ hr Q15H1M IV 05/15/25 07:15 05/15/25 07:22 16.66 MLS/HR Docusate Sodium 100 mg BID PO 05/15/25 10:00 05/15/25 09:49 100 MG Potassium Acetate 60 meq/Potassium Phosphate 35 meq/ Calcium Gluconate 6.975 meq/ Magnesium Sulfate 26 meq/ Multivitamins 10 ml/Chromium/ Copper/Manganese/ Zinc 1 ml/Amino Acids/Dextrose/ Purified Water 1,270.4545 ml @ 53 mls/hr [id number] IV 05/15/25 22:00 05/16/25 21:59 laboratory and microbiology Laboratory Tests 05/15/25 04:00 Test 05/15/25 04:00 Range/Units Serum Glucose 133 H 74-106 mg/dL Microbiology Date/Time Source Procedure Growth Status 05/09/25 11:22 Blood Blood Culture - Final NO GROWTH AFTER 5 DAYS OF INCUBATION. Complete 05/02/25 20:30 Sputum Gram Stain - Final Complete 05/02/25 20:30 Sputum Respiratory Culture - Final Complete 05/02/25 00:00 Nose MRSA Screen - Final Complete 04/30/25 14:30 Pleural Fluid Gram Stain - Final Complete 04/30/25 14:30 Pleural Fluid Body Fluid Culture - Final Complete Problem List/Assessment/Plan Problem List/Assessment/Plan AFEBRILE VSS REMAINS INTUBATED OG REMOVED NG PLACEMENT DONE ABD SOFT NON TENDER TRACE BM LAST NIGHT WOUND DRESSING DRY CLOSE OBSERVATION CONSIDER FLEETS ENEMA CONTINUE SUPPORTIVE CARE FAMILY AWARE OF PT CONDITION AND AGREES WITH THE PLAN NURSE AT BEDSIDE ONGOING PULM EVAL KUB PENDING CONSIDER EMERGENT SURGERY BASED ON ONGOING EVAL Plan discussed with: Other My Orders My Orders Orders - GLORIA MCNEAL MD Procedure Category Date Status Time Kub Abdomen Single XY 05/15/25 Taken View 11:23 Dietary Evaluation Review Recommendations by RD: PPN/TPN Comments: 1) Increase TPN to meet at least 75% estimated daily needs 2) Advance to cardiac diet when medically feasible 3) Follow-up with gastroenterology and neurology 4) Continue to monitor I&O, labs, and skin integrity Expected Outcomes/Goals: 1) nutrition support to meet at least 75% estimated daily needs 2) labs to improve 3) diet to advance 4) gradual wt gain 5) f/u in 2-3 days GLORIA MCNEAL MD May 15, 2025 11:47
--- NOTE | 2025-05-15 12:07 | DVHPN2 ---
Progress Note Date Seen: May 15, 2025 Resident Creating Document: HOLLY DEAN RESIDENT Medical Necessity Reason Pt with a Central, PICC or Fol: Yes The following are medically ne: PICC Line, Grewal Catheter Subjective Review of Systems Patient seen and examined with the bedside On mechanical ventilation NG tube to LIS with a about 100 mL, decreased since yesterday No bowel movement reported H&H stable Objective vital signs Vital Sign Date Time Temp Pulse Resp B/P (MAP) Pulse Ox O2 Delivery O2 Flow Rate FiO2 05/15/25 10:30 92 22 120/53 (75) 99 05/15/25 10:00 30 05/15/25 10:00 Mechanical Ventilator+ 05/15/25 08:00 97.8 97.8 Total Intake and Output 05/14/25 05/14/25 05/15/25 15:00 23:00 07:00 Intake Total 977.736 ml 515.592 ml 1251.58 ml Output Total 900 ml 1000 ml Balance 977.736 ml -384.408 ml 251.58 ml medications Current Medications Medications Dose Ordered Sig/Gregory Route Start Time Stop Time Status Last Admin Dose Admin Pantoprazole Sodium 40 mg DAILY IV 04/16/25 10:00 05/15/25 09:26 40 MG Amino Acids 0 ml @ 0 mls/hr PER PHARMACY IV 04/18/25 17:45 Sodium Chloride 10 ml QSHIFT@10,22 IV 04/21/25 22:00 05/15/25 09:26 10 ML Albuterol 2.5 mg Q3HPRN PRN NEB 04/24/25 16:15 05/15/25 05:44 2.5 MG Nicardipine/ Sodium Chloride 200 ml @ 50 mls/hr Q4H IV 04/25/25 09:45 Diagnostic Test (Pha) 1 strip Q6HR 04/30/25 12:00 05/15/25 05:15 1 STRIP Insulin Human Regular FOLLOW SLIDING SCALE Q6HR SC 04/30/25 12:00 05/14/25 00:03 2 UNITS Dextrose 50 ml UD IV 04/30/25 09:00 05/09/25 00:20 50 ML Lidocaine 1 patch DAILY TOP 04/30/25 10:30 05/15/25 09:26 1 PATCH Morphine Sulfate 1 mg Q6HP PRN IV 04/30/25 10:30 05/02/25 17:58 1 MG Metoprolol Tartrate 2.5 mg Q4HR PRN IV 04/30/25 11:30 05/14/25 23:33 2.5 MG Propofol 100 ml @ 1.296 mls/ hr Q24H IV 05/02/25 20:45 05/15/25 07:22 5.184 MLS/HR Fentanyl Citrate 250 ml @ 2.5 mls/hr Q24H IV 05/02/25 20:45 05/14/25 15:06 10 MLS/HR Acetylcysteine 100 mg Q4HR NEB 05/05/25 10:00 UNV Enoxaparin Sodium 50 mg Q12HR SC 05/07/25 22:00 05/15/25 09:25 50 MG Vancomycin HCl 0 ml @ 0 mls/hr PER PHARMACY IV 05/09/25 10:30 Acetaminophen 650 mg Q6HP PRN [place] 05/09/25 10:30 Meropenem 50 ml @ 17 mls/hr Q12HR IV 05/09/25 14:00 05/15/25 09:25 17 MLS/HR Vancomycin HCl 250 ml @ 200 mls/hr Q12H IV 05/09/25 18:00 Cancel Dextrose/Sodium Chloride 1,000 ml @ 30 mls/hr Q24H IV 05/10/25 18:15 05/13/25 19:30 30 MLS/HR Levalbuterol HCl 0.625 mg Q8HR NEB 05/11/25 14:00 05/15/25 05:44 0.625 MG Ipratropium [place] 0.5 mg Q8HR NEB 05/11/25 14:00 05/15/25 05:44 0.5 MG Acetylcysteine 100 mg Q8HR NEB 05/11/25 14:00 05/15/25 05:45 100 MG Metoclopramide HCl 5 mg Q8H IV 05/11/25 18:00 05/15/25 09:25 5 MG Vancomycin HCl 250 ml @ 250 mls/hr Q12H IV 05/14/25 13:00 05/15/25 01:22 250 MLS/HR Potassium Acetate 40 meq/Potassium Phosphate 35 meq/ Calcium Gluconate 6.975 meq/ Magnesium Sulfate 26 meq/ Multivitamins 10 ml/Chromium/ Copper/Manganese/ Zinc 1 ml/Amino Acids/Dextrose 1,160.4545 ml @ 48.6 mls/hr [id number] IV 05/14/25 22:00 05/15/25 21:59 Cancel Potassium Acetate 40 meq/Potassium Phosphate 35 meq/ Calcium Gluconate 6.975 meq/ Magnesium Sulfate 26 meq/ Multivitamins 10 ml/Chromium/ Copper/Manganese/ Zinc 1 ml/Amino Acids/Dextrose/ Purified Water 1,260.4545 ml @ 52 mls/hr [id number] IV 05/14/25 22:00 05/15/25 21:59 05/14/25 22:52 52 MLS/HR Amiodarone HCl 250 ml @ 16.66 mls/ hr Q15H1M IV 05/15/25 07:15 05/15/25 07:22 16.66 MLS/HR Docusate Sodium 100 mg BID PO 05/15/25 10:00 05/15/25 09:49 100 MG Potassium Acetate 60 meq/Potassium Phosphate 35 meq/ Calcium Gluconate 6.975 meq/ Magnesium Sulfate 26 meq/ Multivitamins 10 ml/Chromium/ Copper/Manganese/ Zinc 1 ml/Amino Acids/Dextrose/ Purified Water 1,270.4545 ml @ 53 mls/hr [id number] IV 05/15/25 22:00 05/16/25 21:59 Examination General Appearance: Intubated sedated HEENT: PERRLA, EOMI Lungs: Decreased breath sound on left lower lung. High-flow at 50% FiO2 Cardiovascular: Normal S1, Normal S2 Abdomen: No tenderness, No hepatospenomegaly, hypoactive bowel sounds, surgical wound dry Genitourinary: No Apparent Abnormalities (Grewal catheter) Musculoskeletal: Normal sensory function, Normal motor function Extremities: No edema, Normal pulses, No tenderness/swelling laboratory and microbiology Laboratory Tests 05/15/25 04:00 Test 05/15/25 04:00 Range/Units Serum Glucose 133 H 74-106 mg/dL Microbiology Date/Time Source Procedure Growth Status 05/09/25 11:22 Blood Blood Culture - Final NO GROWTH AFTER 5 DAYS OF INCUBATION. Complete 05/02/25 20:30 Sputum Gram Stain - Final Complete 05/02/25 20:30 Sputum Respiratory Culture - Final Complete 05/02/25 00:00 Nose MRSA Screen - Final Complete 04/30/25 14:30 Pleural Fluid Gram Stain - Final Complete 04/30/25 14:30 Pleural Fluid Body Fluid Culture - Final Complete Problem List/Assessment/Plan Problem List/Assessment/Plan Assessment Small-bowel obstruction s/p exploratory laparotomy with a possible transition point Choledocholithiasis Left lung atelectasis likely due to aspiration Status post bronchoscopy Plan - intubated and on mechanical ventilation - KUB on 05/14 showed showed nonobstructive bowel gas pattern with contrast seen within the colon - NG tube to LIS - continue on TPN and NPO - diet to be advanced as per primary surgeon PUD prophylaxis with Protonix Plan discussed with Dr. Cui Plan discussed with: Other (KIA Connors) Dietary Evaluation Review Recommendations by RD: PPN/TPN Comments: 1) Increase TPN to meet at least 75% estimated daily needs 2) Advance to cardiac diet when medically feasible 3) Follow-up with gastroenterology and neurology 4) Continue to monitor I&O, labs, and skin integrity Expected Outcomes/Goals: 1) nutrition support to meet at least 75% estimated daily needs 2) labs to improve 3) diet to advance 4) gradual wt gain 5) f/u in 2-3 days HOLLY DEAN RESIDENT May 15, 2025 12:06
[2025-05-15] MEDS: POTASSIUM PHOSPHATE 22 MEQ in SODIUM CHL 0.9% 100 ML IV ONE (12:38)
--- NOTE | 2025-05-15 13:02 | DVH ---
Date: 05/15/2025 11:23 AM Examination: XY KUB ABDOMEN SINGLE VIEW History: ileus Comparison: XY KUB ABDOMEN SINGLE VIEW on DOS: 05/14/25, XY KUB ABDOMEN SINGLE VIEW on DOS: 05/13/25, XY KUB ABDOMEN SINGLE VIEW on DOS: 05/12/25 TECHNIQUE: Frontal views of the abdomen was obtained. FINDINGS: Enteric tube below the left diaphragm in the stomach. Bowel gas pattern is unremarkable. Contrast in the colon The lung bases are unremarkable. No acute osseous abnormality identified. IMPRESSION: 1. Enteric tube below the left diaphragm in the stomach. 2. Oral contrast throughout the colon and in the rectosigmoid area 3. 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
--- NOTE | 2025-05-15 17:51 | DVHPN2 ---
Progress Note - Dictate Date Seen: May 15, 2025 Medical Necessity Reason Pt with a Central, PICC or Fol: Yes The following are medically ne: PICC Line, Grewal Catheter vital signs Vital Sign Date Time Temp Pulse Resp B/P (MAP) Pulse Ox O2 Delivery O2 Flow Rate FiO2 05/15/25 16:45 89 27 128/51 (76) 100 05/15/25 16:00 30 05/15/25 16:00 Mechanical Ventilator+ 05/15/25 16:00 99.7 99.7 Total Intake and Output 05/14/25 05/14/25 05/15/25 15:00 23:00 07:00 Intake Total 977.736 ml 515.592 ml 1338.764 ml Output Total 900 ml 1000 ml Balance 977.736 ml -384.408 ml 338.764 ml medications Current Medications Medications Dose Ordered Sig/Gregory Route Start Time Stop Time Status Last Admin Dose Admin Pantoprazole Sodium 40 mg DAILY IV 04/16/25 10:00 05/15/25 09:26 40 MG Amino Acids 0 ml @ 0 mls/hr PER PHARMACY IV 04/18/25 17:45 Sodium Chloride 10 ml QSHIFT@10,22 IV 04/21/25 22:00 05/15/25 09:26 10 ML Albuterol 2.5 mg Q3HPRN PRN NEB 04/24/25 16:15 05/15/25 14:26 2.5 MG Nicardipine/ Sodium Chloride 200 ml @ 50 mls/hr Q4H IV 04/25/25 09:45 Diagnostic Test (Pha) 1 strip Q6HR 04/30/25 12:00 05/15/25 12:38 1 STRIP Insulin Human Regular FOLLOW SLIDING SCALE Q6HR SC 04/30/25 12:00 05/14/25 00:03 2 UNITS Dextrose 50 ml UD IV 04/30/25 09:00 05/09/25 00:20 50 ML Lidocaine 1 patch DAILY TOP 04/30/25 10:30 05/15/25 09:26 1 PATCH Morphine Sulfate 1 mg Q6HP PRN IV 04/30/25 10:30 05/02/25 17:58 1 MG Metoprolol Tartrate 2.5 mg Q4HR PRN IV 04/30/25 11:30 05/14/25 23:33 2.5 MG Propofol 100 ml @ 1.296 mls/ hr Q24H IV 05/02/25 20:45 05/15/25 07:22 5.184 MLS/HR Fentanyl Citrate 250 ml @ 2.5 mls/hr Q24H IV 05/02/25 20:45 05/14/25 15:06 10 MLS/HR Acetylcysteine 100 mg Q4HR NEB 05/05/25 10:00 UNV Enoxaparin Sodium 50 mg Q12HR SC 05/07/25 22:00 05/15/25 09:25 50 MG Vancomycin HCl 0 ml @ 0 mls/hr PER PHARMACY IV 05/09/25 10:30 Acetaminophen 650 mg Q6HP PRN [place] 05/09/25 10:30 Meropenem 50 ml @ 17 mls/hr Q12HR IV 05/09/25 14:00 05/15/25 09:25 17 MLS/HR Vancomycin HCl 250 ml @ 200 mls/hr Q12H IV 05/09/25 18:00 Cancel Dextrose/Sodium Chloride 1,000 ml @ 30 mls/hr Q24H IV 05/10/25 18:15 05/13/25 19:30 30 MLS/HR Levalbuterol HCl 0.625 mg Q8HR NEB 05/11/25 14:00 05/15/25 14:26 0.625 MG Ipratropium [place] 0.5 mg Q8HR NEB 05/11/25 14:00 05/15/25 14:26 0.5 MG Acetylcysteine 100 mg Q8HR NEB 05/11/25 14:00 05/15/25 14:26 100 MG Metoclopramide HCl 5 mg Q8H IV 05/11/25 18:00 05/15/25 09:25 5 MG Vancomycin HCl 250 ml @ 250 mls/hr Q12H IV 05/14/25 13:00 05/15/25 15:13 250 MLS/HR Potassium Acetate 40 meq/Potassium Phosphate 35 meq/ Calcium Gluconate 6.975 meq/ Magnesium Sulfate 26 meq/ Multivitamins 10 ml/Chromium/ Copper/Manganese/ Zinc 1 ml/Amino Acids/Dextrose 1,160.4545 ml @ 48.6 mls/hr [id number] IV 05/14/25 22:00 05/15/25 21:59 Cancel Potassium Acetate 40 meq/Potassium Phosphate 35 meq/ Calcium Gluconate 6.975 meq/ Magnesium Sulfate 26 meq/ Multivitamins 10 ml/Chromium/ Copper/Manganese/ Zinc 1 ml/Amino Acids/Dextrose/ Purified Water 1,260.4545 ml @ 52 mls/hr [id number] IV 05/14/25 22:00 05/15/25 21:59 05/14/25 22:52 52 MLS/HR Amiodarone HCl 250 ml @ 16.66 mls/ hr Q15H1M IV 05/15/25 07:15 05/15/25 07:22 16.66 MLS/HR Docusate Sodium 100 mg BID PO 05/15/25 10:00 05/15/25 09:49 100 MG Potassium Acetate 60 meq/Potassium Phosphate 35 meq/ Calcium Gluconate 6.975 meq/ Magnesium Sulfate 26 meq/ Multivitamins 10 ml/Chromium/ Copper/Manganese/ Zinc 1 ml/Amino Acids/Dextrose/ Purified Water 1,270.4545 ml @ 53 mls/hr [id number] IV 05/15/25 22:00 05/16/25 21:59 laboratory and microbiology Laboratory Tests 05/15/25 04:00 Test 05/15/25 04:00 Range/Units Serum Glucose 133 H 74-106 mg/dL Assessment/Plan Impression Acute hypoxemic respiratory failure Lung collapse Pneumonia Atelectasis SBO Patient seen and examined in ICU Events On mechanical ventilation S/p intubation PEEP 5, FiO2 30% Labs and imaging reviewed ABG reviewed Management Vent support Titrate to maintain sats 90% or above Daily sedation holiday When patient is more awake, proceed to weaning trial Pressure support 01/04, extubate when ready Continue antibiotics F/u cultures Bronchodilators Monitor renal function Monitor electrolytes Supplement as needed Pressors as needed for hemodynamic support To maintain a mean arterial pressure of 65 mmHg F/u general surgery DVT prophylaxis Critical care time 35 minutes Dietary Evaluation Review Recommendations by RD: PPN/TPN Comments: 1) Increase TPN to meet at least 75% estimated daily needs 2) Advance to cardiac diet when medically feasible 3) Follow-up with gastroenterology and neurology 4) Continue to monitor I&O, labs, and skin integrity Expected Outcomes/Goals: 1) nutrition support to meet at least 75% estimated daily needs 2) labs to improve 3) diet to advance 4) gradual wt gain 5) f/u in 2-3 days Plan discussed with: Other (Rn) BRUNO GOLDMAN MD May 15, 2025 17:51
[2025-05-15] MEDS: TPN PER PHARMACY IV NR (22:23)
[2025-05-16] VITALS (80 sets, daily range): BP systolic 80–128; BP diastolic 31–54; PULSE 70–93; RESP 20–30; TEMP 98–99.2; O2SAT 92–100
[2025-05-16 04:05] LABS: Hemoglobin 8.2 g/dL (12.2-16.2)
[2025-05-16 04:09] LABS: Hematocrit 24.7 % (36.0-46.0); Mean Corpuscular Hemoglobin 33.5 pg (28.0-32.0); Mean Corpuscular Volume 100.4 fL (80.0-100.0); Nucleated Red Blood Cells % 0.0 %
[2025-05-16 04:23] LABS: Anion Gap 9 (5-15); BUN/Creatinine Ratio 68.6 (10.0-20.0); Carbon Dioxide 27 mmol/L (20-31); Chloride 106 mmol/L (98-107); Magnesium 2.2 mg/dL (1.6-2.6); Potassium 3.9 mmol/L (3.5-5.1); Sodium 142 mmol/L (136-145)
[2025-05-16 04:24] LABS: Alanine Aminotransferase 51 U/L (7-40); Albumin 2.9 g/dL (3.2-4.8); Alkaline Phosphatase 131 U/L (46-116); Bilirubin, Total 0.3 mg/dL (0.2-1.0); Blood Urea Nitrogen 24 mg/dL (9-23); Calcium 7.8 mg/dL (8.7-10.4); Glucose 116 mg/dL (74-106); Total Protein 5.4 g/dL (5.7-8.2)
--- NOTE | 2025-05-16 06:04 | DVH ---
CHEST RADIOGRAPH Indication: INTUBATED Technique: Single frontal view of the chest was obtained COMPARISON: XY CHEST PORTABLE on DOS: 05/15/25, XY CHEST PORTABLE on DOS: 05/14/25, XY CHEST PORTABLE on DOS: 05/14/25, XY CHEST PORTABLE on DOS: 05/13/25, XY CHEST PORTABLE on DOS: 05/11/25 FINDINGS: Lines and Tubes: Endotracheal tube and right PICC in satisfactory position. Lungs: Multifocal airspace disease. Pleura: No effusion.No pneumothorax. Cardiomediastinal contours: Unremarkable Bones: Unremarkable IMPRESSION: Lines and tubes in satisfactory position. No significant interval change.
[2025-05-16 07:43] LABS: Base Excess 1.9 mmol/L (-2.0-3.0)
--- NOTE | 2025-05-16 09:47 | DVHPN2 ---
Progress Note - Dictate Date Seen: May 16, 2025 Medical Necessity Reason Pt with a Central, PICC or Fol: Yes The following are medically ne: PICC Line, Grewal Catheter vital signs Vital Sign Date Time Temp Pulse Resp B/P (MAP) Pulse Ox O2 Delivery O2 Flow Rate FiO2 05/16/25 08:37 105/47 05/16/25 08:30 82 24 100 05/16/25 08:15 30 05/16/25 08:00 Mechanical Ventilator+ 05/16/25 08:00 99.2 99.2 Total Intake and Output 05/15/25 05/15/25 05/16/25 15:00 23:00 07:00 Intake Total 1057.424 ml 1181.568 ml 801.684 ml Output Total 1400 ml 1 ml Balance 1057.424 ml -218.432 ml 800.684 ml medications Current Medications Medications Dose Ordered Sig/Gregory Route Start Time Stop Time Status Last Admin Dose Admin Pantoprazole Sodium 40 mg DAILY IV 04/16/25 10:00 05/16/25 09:36 40 MG Amino Acids 0 ml @ 0 mls/hr PER PHARMACY IV 04/18/25 17:45 Sodium Chloride 10 ml QSHIFT@10,22 IV 04/21/25 22:00 05/16/25 09:37 10 ML Albuterol 2.5 mg Q3HPRN PRN NEB 04/24/25 16:15 05/15/25 14:26 2.5 MG Nicardipine/ Sodium Chloride 200 ml @ 50 mls/hr Q4H IV 04/25/25 09:45 Diagnostic Test (Pha) 1 strip Q6HR 04/30/25 12:00 05/16/25 06:03 1 STRIP Insulin Human Regular FOLLOW SLIDING SCALE Q6HR SC 04/30/25 12:00 05/14/25 00:03 2 UNITS Dextrose 50 ml UD IV 04/30/25 09:00 05/09/25 00:20 50 ML Lidocaine 1 patch DAILY TOP 04/30/25 10:30 05/16/25 09:37 1 PATCH Morphine Sulfate 1 mg Q6HP PRN IV 04/30/25 10:30 05/02/25 17:58 1 MG Metoprolol Tartrate 2.5 mg Q4HR PRN IV 04/30/25 11:30 05/14/25 23:33 2.5 MG Propofol 100 ml @ 1.296 mls/ hr Q24H IV 05/02/25 20:45 05/16/25 06:00 7.776 MLS/HR Fentanyl Citrate 250 ml @ 2.5 mls/hr Q24H IV 05/02/25 20:45 05/16/25 08:37 5 MLS/HR Acetylcysteine 100 mg Q4HR NEB 05/05/25 10:00 UNV Enoxaparin Sodium 50 mg Q12HR SC 05/07/25 22:00 05/16/25 09:39 50 MG Vancomycin HCl 0 ml @ 0 mls/hr PER PHARMACY IV 05/09/25 10:30 Acetaminophen 650 mg Q6HP PRN [place] 05/09/25 10:30 Meropenem 50 ml @ 17 mls/hr Q12HR IV 05/09/25 14:00 05/16/25 09:36 17 MLS/HR Vancomycin HCl 250 ml @ 200 mls/hr Q12H IV 05/09/25 18:00 Cancel Dextrose/Sodium Chloride 1,000 ml @ 30 mls/hr Q24H IV 05/10/25 18:15 05/13/25 19:30 30 MLS/HR Levalbuterol HCl 0.625 mg Q8HR NEB 05/11/25 14:00 05/16/25 06:30 0.625 MG Ipratropium [place] 0.5 mg Q8HR NEB 05/11/25 14:00 05/16/25 06:30 0.5 MG Acetylcysteine 100 mg Q8HR NEB 05/11/25 14:00 05/16/25 06:31 100 MG Metoclopramide HCl 5 mg Q8H IV 05/11/25 18:00 05/16/25 09:36 5 MG Vancomycin HCl 250 ml @ 250 mls/hr Q12H IV 05/14/25 13:00 05/15/25 15:13 250 MLS/HR Potassium Acetate 40 meq/Potassium Phosphate 35 meq/ Calcium Gluconate 6.975 meq/ Magnesium Sulfate 26 meq/ Multivitamins 10 ml/Chromium/ Copper/Manganese/ Zinc 1 ml/Amino Acids/Dextrose 1,160.4545 ml @ 48.6 mls/hr [id number] IV 05/14/25 22:00 05/15/25 21:59 Cancel Amiodarone HCl 250 ml @ 16.66 mls/ hr Q15H1M IV 05/15/25 07:15 05/15/25 22:08 16.66 MLS/HR Docusate Sodium 100 mg BID PO 05/15/25 10:00 05/16/25 09:38 100 MG Potassium Acetate 60 meq/Potassium Phosphate 35 meq/ Calcium Gluconate 6.975 meq/ Magnesium Sulfate 26 meq/ Multivitamins 10 ml/Chromium/ Copper/Manganese/ Zinc 1 ml/Amino Acids/Dextrose/ Purified Water 1,270.4545 ml @ 53 mls/hr [id number] IV 05/15/25 22:00 05/16/25 21:59 05/15/25 22:23 53 MLS/HR laboratory and microbiology Laboratory Tests 05/16/25 03:30 Test 05/16/25 03:30 Range/Units Serum Glucose 116 H 74-106 mg/dL Assessment/Plan Impression Acute hypoxemic respiratory failure Lung collapse Pneumonia Atelectasis SBO Patient seen and examined in ICU Events none pt following commands off sedation On mechanical ventilation S/p intubation PEEP 5, FiO2 30% Labs and imaging reviewed ABG reviewed Management Vent support Titrate to maintain sats 90% or above Daily sedation holiday When patient is more awake, proceed to weaning trial Pressure support 01/04, extubate when ready Continue antibiotics F/u cultures Bronchodilators Monitor renal function Monitor electrolytes Supplement as needed Pressors as needed for hemodynamic support To maintain a mean arterial pressure of 65 mmHg F/u general surgery DVT prophylaxis Critical care time 35 minutes Dietary Evaluation Review Recommendations by RD: PPN/TPN Comments: 1) Increase TPN to meet at least 75% estimated daily needs 2) Advance to cardiac diet when medically feasible 3) Follow-up with gastroenterology and neurology 4) Continue to monitor I&O, labs, and skin integrity Expected Outcomes/Goals: 1) nutrition support to meet at least 75% estimated daily needs 2) labs to improve 3) diet to advance 4) gradual wt gain 5) f/u in 2-3 days Plan discussed with: Other (rn) BRUNO GOLDMAN MD May 16, 2025 09:47
--- NOTE | 2025-05-16 10:09 | DVHPN2 ---
Subjective Intubated and following commands Reviewed: Care Plan, H&P, Labs, Medications Changes from previous H/P or p: No Changes General: Per HPI Objective Vitals Vital Signs Date Time Temp Pulse Resp B/P (MAP) Pulse Ox O2 Delivery O2 Flow Rate FiO2 05/16/25 08:37 105/47 05/16/25 08:30 82 24 100 05/16/25 08:15 30 05/16/25 08:00 Mechanical Ventilator+ 05/16/25 08:00 99.2 99.2 Intake/Output Intake and Output 05/16/25 07:00 Intake Total 3040.676 ml Output Total 1401 ml Balance 1639.676 ml Intake Oral 10 ml IV Total 3030.676 ml Output Urine Total 1301 ml Gastric Drainage Total 100 ml General Appearance: mild distress, Other (Intubated and sedated) HEENT: Atraumatic, PERRLA, Other Lungs: Other (On vent. Transmitted breath sounds bilaterally. Decreased air entry bilaterally. No wheezing. Bibasilar crackles.) Cardiovascular: Normal S1, Normal S2, Other (Fibrillation with controlled rate) Abdomen: No tenderness, No hepatospenomegaly, Other (Hypoactive bowel sounds.) Genitourinary: No Apparent Abnormalities (Grewal catheter) Musculoskeletal: Normal sensory function, Normal motor function Extremities: No edema, Normal pulses, No tenderness/swelling Neuro: Cranial nerves 3-12 NL, Other Skin: Dry, Intact, Wounds, Other (Surgical wound D&I) Psych/Mental Status: Mood NL Medications Current Medications Medications Dose Ordered Sig/Gregory Route Start Time Stop Time Status Last Admin Dose Admin Pantoprazole Sodium 40 mg DAILY IV 04/16/25 10:00 05/16/25 09:36 40 MG Amino Acids 0 ml @ 0 mls/hr PER PHARMACY IV 04/18/25 17:45 Sodium Chloride 10 ml QSHIFT@10,22 IV 04/21/25 22:00 05/16/25 09:37 10 ML Albuterol 2.5 mg Q3HPRN PRN NEB 04/24/25 16:15 05/15/25 14:26 2.5 MG Nicardipine/ Sodium Chloride 200 ml @ 50 mls/hr Q4H IV 04/25/25 09:45 Diagnostic Test (Pha) 1 strip Q6HR 04/30/25 12:00 05/16/25 06:03 1 STRIP Insulin Human Regular FOLLOW SLIDING SCALE Q6HR SC 04/30/25 12:00 05/14/25 00:03 2 UNITS Dextrose 50 ml UD IV 04/30/25 09:00 05/09/25 00:20 50 ML Lidocaine 1 patch DAILY TOP 04/30/25 10:30 05/16/25 09:37 1 PATCH Morphine Sulfate 1 mg Q6HP PRN IV 04/30/25 10:30 05/02/25 17:58 1 MG Metoprolol Tartrate 2.5 mg Q4HR PRN IV 04/30/25 11:30 05/14/25 23:33 2.5 MG Propofol 100 ml @ 1.296 mls/ hr Q24H IV 05/02/25 20:45 05/16/25 06:00 7.776 MLS/HR Fentanyl Citrate 250 ml @ 2.5 mls/hr Q24H IV 05/02/25 20:45 05/16/25 08:37 5 MLS/HR Acetylcysteine 100 mg Q4HR NEB 05/05/25 10:00 UNV Enoxaparin Sodium 50 mg Q12HR SC 05/07/25 22:00 05/16/25 09:39 50 MG Vancomycin HCl 0 ml @ 0 mls/hr PER PHARMACY IV 05/09/25 10:30 Acetaminophen 650 mg Q6HP PRN [place] 05/09/25 10:30 Meropenem 50 ml @ 17 mls/hr Q12HR IV 05/09/25 14:00 05/16/25 09:36 17 MLS/HR Vancomycin HCl 250 ml @ 200 mls/hr Q12H IV 05/09/25 18:00 Cancel Dextrose/Sodium Chloride 1,000 ml @ 30 mls/hr Q24H IV 05/10/25 18:15 05/13/25 19:30 30 MLS/HR Levalbuterol HCl 0.625 mg Q8HR NEB 05/11/25 14:00 05/16/25 06:30 0.625 MG Ipratropium [place] 0.5 mg Q8HR NEB 05/11/25 14:00 05/16/25 06:30 0.5 MG Acetylcysteine 100 mg Q8HR NEB 05/11/25 14:00 05/16/25 06:31 100 MG Metoclopramide HCl 5 mg Q8H IV 05/11/25 18:00 05/16/25 09:36 5 MG Vancomycin HCl 250 ml @ 250 mls/hr Q12H IV 05/14/25 13:00 05/15/25 15:13 250 MLS/HR Potassium Acetate 40 meq/Potassium Phosphate 35 meq/ Calcium Gluconate 6.975 meq/ Magnesium Sulfate 26 meq/ Multivitamins 10 ml/Chromium/ Copper/Manganese/ Zinc 1 ml/Amino Acids/Dextrose 1,160.4545 ml @ 48.6 mls/hr [id number] IV 05/14/25 22:00 05/15/25 21:59 Cancel Amiodarone HCl 250 ml @ 16.66 mls/ hr Q15H1M IV 05/15/25 07:15 05/15/25 22:08 16.66 MLS/HR Docusate Sodium 100 mg BID PO 05/15/25 10:00 05/16/25 09:38 100 MG Potassium Acetate 60 meq/Potassium Phosphate 35 meq/ Calcium Gluconate 6.975 meq/ Magnesium Sulfate 26 meq/ Multivitamins 10 ml/Chromium/ Copper/Manganese/ Zinc 1 ml/Amino Acids/Dextrose/ Purified Water 1,270.4545 ml @ 53 mls/hr [id number] IV 05/15/25 22:00 05/16/25 21:59 05/15/25 22:23 53 MLS/HR Potassium Chloride 10 meq/ Potassium Acetate 60 meq/Potassium Phosphate 35 meq/ Calcium Gluconate 9.3 meq/Magnesium Sulfate 26 meq/ Multivitamins 10 ml/Chromium/ Copper/Manganese/ Zinc 1 ml/Amino Acids/Dextrose/ Purified Water 1,280.4545 ml @ 53 mls/hr [id number] IV 05/16/25 22:00 05/17/25 21:59 Laboratory Results Laboratory Tests 05/16/25 03:30 Chemistry Test 05/16/25 03:30 Albumin 2.9 g/dL (3.2-4.8) L Calcium Level 7.8 mg/dL (8.7-10.4) L Magnesium Level 2.2 mg/dL (1.6-2.6) Phosphorus Level 3.5 mg/dL (2.4-5.1) Total Protein 5.4 g/dL (5.7-8.2) L LFT Test 05/16/25 03:30 Alanine Aminotransferase (ALT) 51 U/L (7-40) H Alkaline Phosphatase 131 U/L (46-116) H Aspartate Amino Transferase (AST) 37 U/L (13-40) Total Bilirubin 0.3 mg/dL (0.2-1.0) Urinalysis Test 04/15/25 15:45 05/11/25 14:35 Urine Amorphous Crystals Few /hpf (None Seen) Urine Hyaline Casts Few /lpf (0 - 2) Urine Mucus Few (None Seen) Urine Color Light-yellow (Yellow) Urine Clarity Clear (Clear) Urine pH 7.0 (5.0-9.0) Urine Specific [place] 1.021 (1.001-1.035) Urine Protein Negative (Negative) Urine Ketones Negative (Negative) Urine Blood 1+ /uL (Negative) H Urine Nitrite Negative (Negative) Urine Bilirubin Negative (Negative) Urine Urobilinogen Normal mg/dL (Negative) Urine Leukocyte Esterase Negative /uL (Negative) Urine RBC 55 /hpf (0 - 4) Urine Microscopic WBC 1 /HPF (0-5) Urine Squamous Epithelial Cells Few /hpf (<5) Urine Bacteria None seen /hpf (None Seen) Urine Glucose Normal mg/dL (Normal) Blood Gas Results Test 05/16/25 07:34 Arterial Blood pH 7.481 (7.350-7.450) FiO2 % 30.0 Microbiology Microbiology Date/Time Source Procedure Growth Status 05/09/25 11:22 Blood Blood Culture - Final NO GROWTH AFTER 5 DAYS OF INCUBATION. Complete 05/02/25 20:30 Sputum Gram Stain - Final Complete 05/02/25 20:30 Sputum Respiratory Culture - Final Complete 05/02/25 00:00 Nose MRSA Screen - Final Complete 04/30/25 14:30 Pleural Fluid Gram Stain - Final Complete 04/30/25 14:30 Pleural Fluid Body Fluid Culture - Final Complete Labs and/or images reviewed: Labs reviewed by me, Image(s) reviewed by me Assessment/Plan Assessment/Plan Impression: -choledocholithiasis -acute pancreatitis -small-bowel obstruction -dementia -cachexia -sepsis -COPD -GERD -Post op delirium -Accelerated HTN -A. fib Plan: Events: Discussed case with Dr. Clau Cui. KUB from yesterday has residual contrast in colon. Repeat KUB pending. Possible administration of GoLYTELY after evaluation by the surgeon. -IV Reglan 5 mg q.8 hours -Continue TPN -Continue current abx -PPI -full-dose anticoagulation -continue bronchodilators, Mucomyst -repeat labs and chest x-ray in a.m. -daily CPAP trials for exercise, plans for extubation after bowel movement. Critical care time spent with patient discussing and formulating plan of care: 40 minutes. This does not include time spent performing procedures. This medical document was created using an electronic medical record system with [employer] dictation system. Although this document has been carefully reviewed, there may still be some phonetic and typographical errors. These areas are purely typographical due to imperfections of the software programs, and do not reflect any compromise in the patient's medical care. Plan discussed with: Patient, Other (RN) My Orders Orders - JAYDEN HILL NP Procedure Category Date Status Time Chest Xray 1 View XY 05/16/25 Resulted 04:00 Abg W/ Co-Ox RT 05/16/25 Logged 04:00 Kub Abdomen Single XY 05/16/25 Logged View 10:02 Cpap/Sed Vacation Med ORDERS 05/16/25 Transmitted Weaning 10:05 Date of Service: May 16, 2025 Billing Provider: JAYDEN HILL NP Common Visit Codes: [id number] CARE 30-74 MIN JAYDEN HILL NP May 16, 2025 10:09
--- NOTE | 2025-05-16 12:38 | DVH ---
Date: 05/16/2025 11:03 AM Examination: XY KUB ABDOMEN SINGLE VIEW History: obstipation Comparison: XY KUB ABDOMEN SINGLE VIEW on DOS: 05/15/25, XY KUB ABDOMEN SINGLE VIEW on DOS: 05/14/25, XY KUB ABDOMEN SINGLE VIEW on DOS: 05/13/25 TECHNIQUE: Frontal views of the abdomen was obtained. FINDINGS: Bowel gas pattern is unremarkable. Slight decrease contrast in the transverse colon when compared to 05/15/2025. The lung bases are unremarkable. No acute osseous abnormality identified. IMPRESSION: 1. Minimal decrease in the contrast content of the transverse colon compared to 05/15/2025.
--- NOTE | 2025-05-16 12:59 | DVHPN2 ---
Progress Note Date Seen: May 16, 2025 Medical Necessity Reason Pt with a Central, PICC or Fol: Yes The following are medically ne: PICC Line, Grewal Catheter Objective vital signs Vital Sign Date Time Temp Pulse Resp B/P (MAP) Pulse Ox O2 Delivery O2 Flow Rate FiO2 05/16/25 12:43 79 24 110/48 (68) 100 30 05/16/25 12:00 Mechanical Ventilator+ 05/16/25 08:00 99.2 99.2 Total Intake and Output 05/15/25 05/15/25 05/16/25 15:00 23:00 07:00 Intake Total 1057.424 ml 1181.568 ml 876.568 ml Output Total 1400 ml 1 ml Balance 1057.424 ml -218.432 ml 875.568 ml medications Current Medications Medications Dose Ordered Sig/Gregory Route Start Time Stop Time Status Last Admin Dose Admin Pantoprazole Sodium 40 mg DAILY IV 04/16/25 10:00 05/16/25 09:36 40 MG Amino Acids 0 ml @ 0 mls/hr PER PHARMACY IV 04/18/25 17:45 Sodium Chloride 10 ml QSHIFT@10,22 IV 04/21/25 22:00 05/16/25 09:37 10 ML Albuterol 2.5 mg Q3HPRN PRN NEB 04/24/25 16:15 05/15/25 14:26 2.5 MG Nicardipine/ Sodium Chloride 200 ml @ 50 mls/hr Q4H IV 04/25/25 09:45 Diagnostic Test (Pha) 1 strip Q6HR 04/30/25 12:00 05/16/25 11:57 1 STRIP Insulin Human Regular FOLLOW SLIDING SCALE Q6HR SC 04/30/25 12:00 05/14/25 00:03 2 UNITS Dextrose 50 ml UD IV 04/30/25 09:00 05/09/25 00:20 50 ML Lidocaine 1 patch DAILY TOP 04/30/25 10:30 05/16/25 09:37 1 PATCH Morphine Sulfate 1 mg Q6HP PRN IV 04/30/25 10:30 05/02/25 17:58 1 MG Metoprolol Tartrate 2.5 mg Q4HR PRN IV 04/30/25 11:30 05/14/25 23:33 2.5 MG Propofol 100 ml @ 1.296 mls/ hr Q24H IV 05/02/25 20:45 05/16/25 06:00 7.776 MLS/HR Fentanyl Citrate 250 ml @ 2.5 mls/hr Q24H IV 05/02/25 20:45 05/16/25 08:37 5 MLS/HR Acetylcysteine 100 mg Q4HR NEB 05/05/25 10:00 UNV Enoxaparin Sodium 50 mg Q12HR SC 05/07/25 22:00 05/16/25 09:39 50 MG Vancomycin HCl 0 ml @ 0 mls/hr PER PHARMACY IV 05/09/25 10:30 Acetaminophen [address] 05/09/25 10:30 Meropenem 50 ml @ 17 mls/hr Q12HR IV 05/09/25 14:00 05/16/25 09:36 17 MLS/HR Vancomycin HCl 250 ml @ 200 mls/hr Q12H IV 05/09/25 18:00 Cancel Dextrose/Sodium Chloride 1,000 ml @ 30 mls/hr Q24H IV 05/10/25 18:15 05/13/25 19:30 30 MLS/HR Levalbuterol HCl 0.625 mg Q8HR NEB 05/11/25 14:00 05/16/25 06:30 0.625 MG Ipratropium [place] 0.5 mg Q8HR NEB 05/11/25 14:00 05/16/25 06:30 0.5 MG Acetylcysteine 100 mg Q8HR NEB 05/11/25 14:00 05/16/25 06:31 100 MG Metoclopramide HCl 5 mg Q8H IV 05/11/25 18:00 05/16/25 09:36 5 MG Potassium Acetate 40 meq/Potassium Phosphate 35 meq/ Calcium Gluconate 6.975 meq/ Magnesium Sulfate 26 meq/ Multivitamins 10 ml/Chromium/ Copper/Manganese/ Zinc 1 ml/Amino Acids/Dextrose 1,160.4545 ml @ 48.6 mls/hr [id number] IV 05/14/25 22:00 05/15/25 21:59 Cancel Amiodarone HCl 250 ml @ 16.66 mls/ hr Q15H1M IV 05/15/25 07:15 05/15/25 22:08 16.66 MLS/HR Docusate Sodium 100 mg BID PO 05/15/25 10:00 05/16/25 09:38 100 MG Potassium Acetate 60 meq/Potassium Phosphate 35 meq/ Calcium Gluconate 6.975 meq/ Magnesium Sulfate 26 meq/ Multivitamins 10 ml/Chromium/ Copper/Manganese/ Zinc 1 ml/Amino Acids/Dextrose/ Purified Water 1,270.4545 ml @ 53 mls/hr [id number] IV 05/15/25 22:00 05/16/25 21:59 05/15/25 22:23 53 MLS/HR Potassium Chloride 10 meq/ Potassium Acetate 60 meq/Potassium Phosphate 35 meq/ Calcium Gluconate 9.3 meq/Magnesium Sulfate 26 meq/ Multivitamins 10 ml/Chromium/ Copper/Manganese/ Zinc 1 ml/Amino Acids/Dextrose/ Purified Water 1,280.4545 ml @ 53 mls/hr [id number] IV 05/16/25 22:00 05/17/25 21:59 Vancomycin HCl 100 ml @ 100 mls/hr Q12H IV 05/16/25 13:00 laboratory and microbiology Laboratory Tests 05/16/25 03:30 Test 05/16/25 03:30 Range/Units Serum Glucose 116 H 74-106 mg/dL Microbiology Date/Time Source Procedure Growth Status 05/09/25 11:22 Blood Blood Culture - Final NO GROWTH AFTER 5 DAYS OF INCUBATION. Complete 05/02/25 20:30 Sputum Gram Stain - Final Complete 05/02/25 20:30 Sputum Respiratory Culture - Final Complete 05/02/25 00:00 Nose MRSA Screen - Final Complete 04/30/25 14:30 Pleural Fluid Gram Stain - Final Complete 04/30/25 14:30 Pleural Fluid Body Fluid Culture - Final Complete Problem List/Assessment/Plan Problem List/Assessment/Plan AFEBRILE VSS REMAINS INTUBATED OG REMOVED NG PLACEMENT DONE ABD SOFT NON TENDER TRACE BM LAST NIGHT WOUND DRESSING DRY CLOSE OBSERVATION CONSIDER GOLYTELY VIA NG TUBE CONTINUE SUPPORTIVE CARE FAMILY AWARE OF PT CONDITION AND AGREES WITH THE PLAN NURSE AT BEDSIDE ONGOING PULM EVAL KUB ILEUS WITH CONTRAST IN COLON CONSIDER EMERGENT SURGERY BASED ON ONGOING EVAL Plan discussed with: Other Dietary Evaluation Review Recommendations by RD: PPN/TPN Comments: 1) Increase TPN to meet at least 75% estimated daily needs 2) Advance to cardiac diet when medically feasible 3) Follow-up with gastroenterology and neurology 4) Continue to monitor I&O, labs, and skin integrity Expected Outcomes/Goals: 1) nutrition support to meet at least 75% estimated daily needs 2) labs to improve 3) diet to advance 4) gradual wt gain 5) f/u in 2-3 days GLORIA MCNEAL MD May 16, 2025 12:59
--- NOTE | 2025-05-16 13:50 | DVHPN2 ---
Progress Note - Dictate Date Seen: May 16, 2025 Medical Necessity Reason Pt with a Central, PICC or Fol: Yes The following are medically ne: PICC Line, Grewal Catheter Subjective Patient remains intubated and sedated NG tube output has decreased Patient failed CPAP trial No bowel movement recorded yet vital signs Vital Sign Date Time Temp Pulse Resp B/P (MAP) Pulse Ox O2 Delivery O2 Flow Rate FiO2 05/16/25 13:36 102/45 05/16/25 13:00 75 22 100 05/16/25 12:43 30 05/16/25 12:00 Mechanical Ventilator+ 05/16/25 08:00 99.2 99.2 Total Intake and Output 05/15/25 05/15/25 05/16/25 15:00 23:00 07:00 Intake Total 1057.424 ml 1181.568 ml 876.568 ml Output Total 1400 ml 1 ml Balance 1057.424 ml -218.432 ml 875.568 ml medications Current Medications Medications Dose Ordered Sig/Gregory Route Start Time Stop Time Status Last Admin Dose Admin Pantoprazole Sodium 40 mg DAILY IV 04/16/25 10:00 05/16/25 09:36 40 MG Amino Acids 0 ml @ 0 mls/hr PER PHARMACY IV 04/18/25 17:45 Sodium Chloride 10 ml QSHIFT@, IV 04/21/25 22:00 05/16/25 09:37 10 ML Albuterol 2.5 mg Q3HPRN PRN NEB 04/24/25 16:15 05/15/25 14:26 2.5 MG Nicardipine/ Sodium Chloride 200 ml @ 50 mls/hr Q4H IV 04/25/25 09:45 Diagnostic Test (Pha) 1 strip Q6HR 04/30/25 12:00 05/16/25 11:57 1 STRIP Insulin Human Regular FOLLOW SLIDING SCALE Q6HR SC 04/30/25 12:00 05/14/25 00:03 2 UNITS Dextrose 50 ml UD IV 04/30/25 09:00 05/09/25 00:20 50 ML Lidocaine 1 patch DAILY TOP 04/30/25 10:30 05/16/25 09:37 1 PATCH Morphine Sulfate 1 mg Q6HP PRN IV 04/30/25 10:30 05/02/25 17:58 1 MG Metoprolol Tartrate 2.5 mg Q4HR PRN IV 04/30/25 11:30 05/14/25 23:33 2.5 MG Propofol 100 ml @ 1.296 mls/ hr Q24H IV 05/02/25 20:45 05/16/25 06:00 7.776 MLS/HR Fentanyl Citrate 250 ml @ 2.5 mls/hr Q24H IV 05/02/25 20:45 05/16/25 08:37 5 MLS/HR Acetylcysteine 100 mg Q4HR NEB 05/05/25 10:00 UNV Enoxaparin Sodium 50 mg Q12HR SC 05/07/25 22:00 05/16/25 09:39 50 MG Vancomycin HCl 0 ml @ 0 mls/hr PER PHARMACY IV 05/09/25 10:30 Acetaminophen 650 mg Q6HP PRN [place] 05/09/25 10:30 Meropenem 50 ml @ 17 mls/hr Q12HR IV 05/09/25 14:00 05/16/25 09:36 17 MLS/HR Vancomycin HCl 250 ml @ 200 mls/hr Q12H IV 05/09/25 18:00 Cancel Dextrose/Sodium Chloride 1,000 ml @ 30 mls/hr Q24H IV 05/10/25 18:15 05/13/25 19:30 30 MLS/HR Levalbuterol HCl 0.625 mg Q8HR NEB 05/11/25 14:00 05/16/25 06:30 0.625 MG Ipratropium [place] 0.5 mg Q8HR NEB 05/11/25 14:00 05/16/25 06:30 0.5 MG Acetylcysteine 100 mg Q8HR NEB 05/11/25 14:00 05/16/25 06:31 100 MG Metoclopramide HCl 5 mg Q8H IV 05/11/25 18:00 05/16/25 09:36 5 MG Potassium Acetate 40 meq/Potassium Phosphate 35 meq/ Calcium Gluconate 6.975 meq/ Magnesium Sulfate 26 meq/ Multivitamins 10 ml/Chromium/ Copper/Manganese/ Zinc 1 ml/Amino Acids/Dextrose 1,160.4545 ml @ 48.6 mls/hr [id number] IV 05/14/25 22:00 05/15/25 21:59 Cancel Amiodarone HCl 250 ml @ 16.66 mls/ hr Q15H1M IV 05/15/25 07:15 05/16/25 13:29 16.66 MLS/HR Docusate Sodium 100 mg BID PO 05/15/25 10:00 05/16/25 09:38 100 MG Potassium Acetate 60 meq/Potassium Phosphate 35 meq/ Calcium Gluconate 6.975 meq/ Magnesium Sulfate 26 meq/ Multivitamins 10 ml/Chromium/ Copper/Manganese/ Zinc 1 ml/Amino Acids/Dextrose/ Purified Water 1,270.4545 ml @ 53 mls/hr [id number] IV 05/15/25 22:00 05/16/25 21:59 05/15/25 22:23 53 MLS/HR Potassium Chloride 10 meq/ Potassium Acetate 60 meq/Potassium Phosphate 35 meq/ Calcium Gluconate 9.3 meq/Magnesium Sulfate 26 meq/ Multivitamins 10 ml/Chromium/ Copper/Manganese/ Zinc 1 ml/Amino Acids/Dextrose/ Purified Water 1,280.4545 ml @ 53 mls/hr [id number] IV 05/16/25 22:00 05/17/25 21:59 Vancomycin HCl 100 ml @ 100 mls/hr Q12H IV 05/16/25 13:00 objective General Appearance: Intubated awake HEENT: PERRLA, EOMI Lungs: Decreased breath sound on left lower lung. High-flow at 50% FiO2 Cardiovascular: Normal S1, Normal S2 Abdomen: No tenderness, No hepatospenomegaly, hypoactive bowel sounds, surgical wound dry Genitourinary: No Apparent Abnormalities (Grewal catheter) Musculoskeletal: Normal sensory function, Normal motor function Extremities: No edema, Normal pulses, No tenderness/swelling laboratory and microbiology Laboratory Tests 05/16/25 03:30 Test 05/16/25 03:30 Range/Units Serum Glucose 116 H 74-106 mg/dL Problems(with codes): (1) Small bowel obstruction (2) Choledocholithiasis (3) COPD (chronic obstructive pulmonary disease) Prognosis Plan Repeat KUB shows less contrast in the transverse colon Agree with trial of GoLYTELY to be given gently via NG tube or NG tube Continue supportive care Surgical consult is following Dietary Evaluation Review Recommendations by RD: PPN/TPN Comments: 1) Increase TPN to meet at least 75% estimated daily needs 2) Advance to cardiac diet when medically feasible 3) Follow-up with gastroenterology and neurology 4) Continue to monitor I&O, labs, and skin integrity Expected Outcomes/Goals: 1) nutrition support to meet at least 75% estimated daily needs 2) labs to improve 3) diet to advance 4) gradual wt gain 5) f/u in 2-3 days Plan discussed with: Other (ICU Nurse) JIL MCNEAL MD May 16, 2025 13:50
[2025-05-16] MEDS: GOLYTELY 4L KIT PO ONE (15:30)
[2025-05-16] MEDS: VANCOMYCIN 750MG KIT 100 ML IV SCH (15:30)
[2025-05-16] MEDS: TPN PER PHARMACY IV NR (21:36)
[2025-05-17] VITALS (59 sets, daily range): BP systolic 80–143; BP diastolic 39–67; PULSE 68–111; RESP 19–45; TEMP 98–99.6; O2SAT 91–100
[2025-05-17 04:40] LABS: Hematocrit 22.9 % (36.0-46.0); Hemoglobin 7.7 g/dL (12.2-16.2); Mean Corpuscular Hemoglobin 33.6 pg (28.0-32.0); Mean Corpuscular Volume 100.1 fL (80.0-100.0); Nucleated Red Blood Cells % 0.1 %
[2025-05-17 05:04] LABS: Anion Gap 9 (5-15); BUN/Creatinine Ratio 70.5 (10.0-20.0); Carbon Dioxide 27 mmol/L (20-31); Chloride 105 mmol/L (98-107); Glucose 93 mg/dL (74-106); Magnesium 2.1 mg/dL (1.6-2.6); Potassium 4.8 mmol/L (3.5-5.1); Sodium 141 mmol/L (136-145)
[2025-05-17 05:05] LABS: Bilirubin, Total 0.3 mg/dL (0.2-1.0)
[2025-05-17 05:07] LABS: Alanine Aminotransferase 47 U/L (7-40); Albumin 2.7 g/dL (3.2-4.8); Alkaline Phosphatase 133 U/L (46-116); Blood Urea Nitrogen 31 mg/dL (9-23); Calcium 7.9 mg/dL (8.7-10.4); Total Protein 5.0 g/dL (5.7-8.2)
--- NOTE | 2025-05-17 05:47 | DVH ---
CHEST RADIOGRAPH Indication: check ETT placement. Technique: 1 view Comparison: XY CHEST XRAY 1 VIEW on DOS: 05/16/25, XY CHEST PORTABLE on DOS: 05/15/25, XY CHEST PORTABLE on DOS: 05/14/25, XY CHEST PORTABLE on DOS: 05/14/25, XY CHEST PORTABLE on DOS: 05/13/25 FINDINGS: Lines and Tubes: Unchanged. Lungs/Pleura: Unchanged. Cardiomediastinum: Unchanged. Other: Unchanged. IMPRESSION: 1. No significant change from the previous study. Stable support devices. Persistent perihilar and basilar patchy airspace disease.
[2025-05-17 07:15] LABS: Base Excess 0.7 mmol/L (-2.0-3.0)
--- NOTE | 2025-05-17 11:42 | DVHPN2 ---
Progress Note Date Seen: May 17, 2025 Medical Necessity Reason Pt with a Central, PICC or Fol: Yes The following are medically ne: PICC Line, Grewal Catheter Objective vital signs Vital Sign Date Time Temp Pulse Resp B/P (MAP) Pulse Ox O2 Delivery O2 Flow Rate FiO2 05/17/25 11:00 88 22 130/54 (79) 96 05/17/25 09:56 30 05/17/25 09:30 Mechanical Ventilator+ 05/17/25 08:00 98.5 98.5 Total Intake and Output 05/16/25 05/16/25 05/17/25 14:59 22:59 06:59 Intake Total 667.216 ml 787.240 ml 475.528 ml Output Total 1000 ml 1100 ml Balance 667.216 ml -212.760 ml -624.472 ml medications Current Medications Medications Dose Ordered Sig/Gregory Route Start Time Stop Time Status Last Admin Dose Admin Pantoprazole Sodium 40 mg DAILY IV 04/16/25 10:00 05/17/25 08:25 40 MG Amino Acids 0 ml @ 0 mls/hr PER PHARMACY IV 04/18/25 17:45 Sodium Chloride 10 ml QSHIFT@10,22 IV 04/21/25 22:00 05/17/25 08:25 10 ML Albuterol 2.5 mg Q3HPRN PRN NEB 04/24/25 16:15 05/15/25 14:26 2.5 MG Nicardipine/ Sodium Chloride 200 ml @ 50 mls/hr Q4H IV 04/25/25 09:45 Diagnostic Test (Pha) 1 strip Q6HR 04/30/25 12:00 05/17/25 06:09 1 STRIP Insulin Human Regular FOLLOW SLIDING SCALE Q6HR SC 04/30/25 12:00 05/14/25 00:03 2 UNITS Dextrose 50 ml UD IV 04/30/25 09:00 05/09/25 00:20 50 ML Lidocaine 1 patch DAILY TOP 04/30/25 10:30 05/17/25 08:26 1 PATCH Morphine Sulfate 1 mg Q6HP PRN IV 04/30/25 10:30 05/02/25 17:58 1 MG Metoprolol Tartrate 2.5 mg Q4HR PRN IV 04/30/25 11:30 05/14/25 23:33 2.5 MG Propofol 100 ml @ 1.296 mls/ hr Q24H IV 05/02/25 20:45 05/17/25 08:26 7.776 MLS/HR Fentanyl Citrate 250 ml @ 2.5 mls/hr Q24H IV 05/02/25 20:45 05/16/25 08:37 5 MLS/HR Acetylcysteine 100 mg Q4HR NEB 05/05/25 10:00 UNV Enoxaparin Sodium 50 mg Q12HR SC 05/07/25 22:00 05/17/25 08:25 50 MG Vancomycin HCl 0 ml @ 0 mls/hr PER PHARMACY IV 05/09/25 10:30 Acetaminophen 650 mg Q6HP PRN [place] 05/09/25 10:30 Meropenem 50 ml @ 17 mls/hr Q12HR IV 05/09/25 14:00 05/17/25 08:25 17 MLS/HR Vancomycin HCl 250 ml @ 200 mls/hr Q12H IV 05/09/25 18:00 Cancel Dextrose/Sodium Chloride 1,000 ml @ 30 mls/hr Q24H IV 05/10/25 18:15 05/16/25 18:18 30 MLS/HR Levalbuterol HCl 0.625 mg Q8HR NEB 05/11/25 14:00 05/17/25 06:10 0.625 MG Ipratropium [place] 0.5 mg Q8HR NEB 05/11/25 14:00 05/17/25 06:10 0.5 MG Acetylcysteine 100 mg Q8HR NEB 05/11/25 14:00 05/17/25 06:10 100 MG Metoclopramide HCl 5 mg Q8H IV 05/11/25 18:00 05/17/25 08:25 5 MG Potassium Acetate 40 meq/Potassium Phosphate 35 meq/ Calcium Gluconate 6.975 meq/ Magnesium Sulfate 26 meq/ Multivitamins 10 ml/Chromium/ Copper/Manganese/ Zinc 1 ml/Amino Acids/Dextrose 1,160.4545 ml @ 48.6 mls/hr [id number] IV 05/14/25 22:00 05/15/25 21:59 Cancel Amiodarone HCl 250 ml @ 16.66 mls/ hr Q15H1M IV 05/15/25 07:15 05/17/25 04:55 16.66 MLS/HR Docusate Sodium 100 mg BID PO 05/15/25 10:00 05/17/25 08:24 100 MG Potassium Chloride 10 meq/ Potassium Acetate 60 meq/Potassium Phosphate 35 meq/ Calcium Gluconate 9.3 meq/Magnesium Sulfate 26 meq/ Multivitamins 10 ml/Chromium/ Copper/Manganese/ Zinc 1 ml/Amino Acids/Dextrose/ Purified Water 1,280.4545 ml @ 53 mls/hr [id number] IV 05/16/25 22:00 05/17/25 21:59 05/16/25 21:36 53 MLS/HR Vancomycin HCl 100 ml @ 100 mls/hr Q12H IV 05/16/25 13:00 05/17/25 00:55 100 MLS/HR Calcium Gluconate 6.975 meq/ Magnesium Sulfate 28 meq/ Multivitamins 10 ml/Chromium/ Copper/Manganese/ Zinc 1 ml/Amino Acids/Dextrose/ Purified Water 1,233 ml @ 51 mls/hr [id number] IV 05/17/25 22:00 05/18/25 21:59 laboratory and microbiology Laboratory Tests 05/17/25 04:00 Test 05/17/25 04:00 Range/Units Serum Glucose 93 74-106 mg/dL Microbiology Date/Time Source Procedure Growth Status 05/09/25 11:22 Blood Blood Culture - Final NO GROWTH AFTER 5 DAYS OF INCUBATION. Complete 05/02/25 20:30 Sputum Gram Stain - Final Complete 05/02/25 20:30 Sputum Respiratory Culture - Final Complete 05/02/25 00:00 Nose MRSA Screen - Final Complete 04/30/25 14:30 Pleural Fluid Gram Stain - Final Complete 04/30/25 14:30 Pleural Fluid Body Fluid Culture - Final Complete Problem List/Assessment/Plan Problem List/Assessment/Plan AFEBRILE VSS REMAINS INTUBATED ABD SOFT NON DISTENDED NO BM RECTAL TUBE IN PLACE WOUND DRESSING DRY CLOSE OBSERVATION CONTINUE SUPPORTIVE CARE FAMILY AWARE OF PT CONDITION AND AGREES WITH THE PLAN NURSE AT BEDSIDE ONGOING PULM EVAL DC RECTAL TUBE RECTAL EXAM NO IMPACTION NG TO LCS CONSIDER EMERGENT SURGERY BASED ON ONGOING EVAL Plan discussed with: Other Dietary Evaluation Review Recommendations by RD: PPN/TPN Comments: 1) Increase TPN to meet at least 75% estimated daily needs 2) Advance to cardiac diet when medically feasible 3) Follow-up with gastroenterology and neurology 4) Continue to monitor I&O, labs, and skin integrity Expected Outcomes/Goals: 1) nutrition support to meet at least 75% estimated daily needs 2) labs to improve 3) diet to advance 4) gradual wt gain 5) f/u in 2-3 days GLORIA MCNEAL MD May 17, 2025 11:42
--- NOTE | 2025-05-17 11:51 | DVHPN2 ---
Progress Note - Dictate Date Seen: May 17, 2025 Medical Necessity Reason Pt with a Central, PICC or Fol: Yes The following are medically ne: PICC Line, Grewal Catheter vital signs Vital Sign Date Time Temp Pulse Resp B/P (MAP) Pulse Ox O2 Delivery O2 Flow Rate FiO2 05/17/25 11:39 77 22 134/53 (80) 97 30 05/17/25 09:30 Mechanical Ventilator+ 05/17/25 08:00 98.5 98.5 Total Intake and Output 05/16/25 05/16/25 05/17/25 15:00 23:00 07:00 Intake Total 669.808 ml 817.540 ml 422.188 ml Output Total 1000 ml 1100 ml Balance 669.808 ml -182.460 ml -677.812 ml medications Current Medications Medications Dose Ordered Sig/Gregory Route Start Time Stop Time Status Last Admin Dose Admin Pantoprazole Sodium 40 mg DAILY IV 04/16/25 10:00 05/17/25 08:25 40 MG Amino Acids 0 ml @ 0 mls/hr PER PHARMACY IV 04/18/25 17:45 Sodium Chloride 10 ml QSHIFT@10, IV 04/21/25 22:00 05/17/25 08:25 10 ML Albuterol 2.5 mg Q3HPRN PRN NEB 04/24/25 16:15 05/15/25 14:26 2.5 MG Nicardipine/ Sodium Chloride 200 ml @ 50 mls/hr Q4H IV 04/25/25 09:45 Diagnostic Test (Pha) 1 strip Q6HR 04/30/25 12:00 05/17/25 06:09 1 STRIP Insulin Human Regular FOLLOW SLIDING SCALE Q6HR SC 04/30/25 12:00 05/14/25 00:03 2 UNITS Dextrose 50 ml UD IV 04/30/25 09:00 05/09/25 00:20 50 ML Lidocaine 1 patch DAILY TOP 04/30/25 10:30 05/17/25 08:26 1 PATCH Morphine Sulfate 1 mg Q6HP PRN IV 04/30/25 10:30 05/02/25 17:58 1 MG Metoprolol Tartrate 2.5 mg Q4HR PRN IV 04/30/25 11:30 05/14/25 23:33 2.5 MG Propofol 100 ml @ 1.296 mls/ hr Q24H IV 05/02/25 20:45 05/17/25 08:26 7.776 MLS/HR Fentanyl Citrate 250 ml @ 2.5 mls/hr Q24H IV 05/02/25 20:45 05/16/25 08:37 5 MLS/HR Acetylcysteine 100 mg Q4HR NEB 05/05/25 10:00 UNV Enoxaparin Sodium 50 mg Q12HR SC 05/07/25 22:00 05/17/25 08:25 50 MG Vancomycin HCl 0 ml @ 0 mls/hr PER PHARMACY IV 05/09/25 10:30 Acetaminophen 650 mg Q6HP PRN [place] 05/09/25 10:30 Meropenem 50 ml @ 17 mls/hr Q12HR IV 05/09/25 14:00 05/17/25 08:25 17 MLS/HR Vancomycin HCl 250 ml @ 200 mls/hr Q12H IV 05/09/25 18:00 Cancel Dextrose/Sodium Chloride 1,000 ml @ 30 mls/hr Q24H IV 05/10/25 18:15 05/16/25 18:18 30 MLS/HR Levalbuterol HCl 0.625 mg Q8HR NEB 05/11/25 14:00 05/17/25 06:10 0.625 MG Ipratropium [place] 0.5 mg Q8HR NEB 05/11/25 14:00 05/17/25 06:10 0.5 MG Acetylcysteine 100 mg Q8HR NEB 05/11/25 14:00 05/17/25 06:10 100 MG Metoclopramide HCl 5 mg Q8H IV 05/11/25 18:00 05/17/25 08:25 5 MG Potassium Acetate 40 meq/Potassium Phosphate 35 meq/ Calcium Gluconate 6.975 meq/ Magnesium Sulfate 26 meq/ Multivitamins 10 ml/Chromium/ Copper/Manganese/ Zinc 1 ml/Amino Acids/Dextrose 1,160.4545 ml @ 48.6 mls/hr [id number] IV 05/14/25 22:00 05/15/25 21:59 Cancel Amiodarone HCl 250 ml @ 16.66 mls/ hr Q15H1M IV 05/15/25 07:15 05/17/25 04:55 16.66 MLS/HR Docusate Sodium 100 mg BID PO 05/15/25 10:00 05/17/25 08:24 100 MG Potassium Chloride 10 meq/ Potassium Acetate 60 meq/Potassium Phosphate 35 meq/ Calcium Gluconate 9.3 meq/Magnesium Sulfate 26 meq/ Multivitamins 10 ml/Chromium/ Copper/Manganese/ Zinc 1 ml/Amino Acids/Dextrose/ Purified Water 1,280.4545 ml @ 53 mls/hr [id number] IV 05/16/25 22:00 05/17/25 21:59 05/16/25 21:36 53 MLS/HR Vancomycin HCl 100 ml @ 100 mls/hr Q12H IV 05/16/25 13:00 05/17/25 00:55 100 MLS/HR Calcium Gluconate 6.975 meq/ Magnesium Sulfate 28 meq/ Multivitamins 10 ml/Chromium/ Copper/Manganese/ Zinc 1 ml/Amino Acids/Dextrose/ Purified Water 1,233 ml @ 51 mls/hr [id number] IV 05/17/25 22:00 05/18/25 21:59 laboratory and microbiology Laboratory Tests 05/17/25 04:00 Test 05/17/25 04:00 Range/Units Serum Glucose 93 74-106 mg/dL Assessment/Plan Impression Acute hypoxemic respiratory failure Lung collapse Pneumonia Atelectasis SBO Patient seen and examined in ICU Events On mechanical ventilation S/p intubation PEEP 5, FiO2 30% Requires sedation On Amiodarone drip Labs and imaging reviewed ABG reviewed Management Vent support Titrate to maintain sats 90% or above Daily sedation holiday When patient is more awake, proceed to weaning trial Pressure support 01/04, extubate when ready Continue antibiotics F/u cultures Bronchodilators Monitor renal function Monitor electrolytes Supplement as needed Pressors as needed for hemodynamic support To maintain a mean arterial pressure of 65 mmHg F/u general surgery DVT prophylaxis Critical care time 35 minutes Dietary Evaluation Review Recommendations by RD: PPN/TPN Comments: 1) Increase TPN to meet at least 75% estimated daily needs 2) Advance to cardiac diet when medically feasible 3) Follow-up with gastroenterology and neurology 4) Continue to monitor I&O, labs, and skin integrity Expected Outcomes/Goals: 1) nutrition support to meet at least 75% estimated daily needs 2) labs to improve 3) diet to advance 4) gradual wt gain 5) f/u in 2-3 days Plan discussed with: Other (Rn) BRUNO GOLDMAN MD May 17, 2025 11:51
[2025-05-17] MEDS: TPN PER PHARMACY IV NR (20:58)
[2025-05-18] VITALS (54 sets, daily range): BP systolic 98–143; BP diastolic 32–65; PULSE 69–93; RESP 16–31; TEMP 98.1–99.7; O2SAT 94–100
[2025-05-18] MEDS: VANCOMYCIN 750MG KIT 100 ML IV SCH (03:39)
[2025-05-18 04:34] LABS: Hemoglobin 8.1 g/dL (12.2-16.2)
[2025-05-18 04:38] LABS: Hematocrit 24.3 % (36.0-46.0); Mean Corpuscular Hemoglobin 33.4 pg (28.0-32.0); Mean Corpuscular Volume 100.4 fL (80.0-100.0); Nucleated Red Blood Cells % 0.1 %
[2025-05-18 04:52] LABS: Anion Gap 9 (5-15); BUN/Creatinine Ratio 59.0 (10.0-20.0); Carbon Dioxide 28 mmol/L (20-31); Magnesium 1.9 mg/dL (1.6-2.6); Potassium 4.0 mmol/L (3.5-5.1); Sodium 144 mmol/L (136-145)
[2025-05-18 04:53] LABS: Bilirubin, Total 0.3 mg/dL (0.2-1.0)
[2025-05-18 04:54] LABS: Alanine Aminotransferase 40 U/L (7-40); Albumin 2.7 g/dL (3.2-4.8); Alkaline Phosphatase 122 U/L (46-116); Blood Urea Nitrogen 23 mg/dL (9-23); Calcium 7.6 mg/dL (8.7-10.4); Chloride 107 mmol/L (98-107); Glucose 109 mg/dL (74-106); Total Protein 5.0 g/dL (5.7-8.2)
[2025-05-18 07:43] LABS: Base Excess 0.3 mmol/L (-2.0-3.0)
--- NOTE | 2025-05-18 11:11 | DVH ---
Exam: XY KUB ABDOMEN SINGLE VIEW Indication: possible obstruction Comparison: XY KUB ABDOMEN SINGLE VIEW on DOS: 05/16/25, XY KUB ABDOMEN SINGLE VIEW on DOS: 05/15/25, XY KUB ABDOMEN SINGLE VIEW on DOS: 05/14/25, XY KUB ABDOMEN SINGLE VIEW on DOS: 05/13/25, XY KUB ABDOMEN SINGLE VIEW on DOS: 05/12/25 Technique: 1 radiographic views of the abdomen. Findings: Nonspecific bowel-gas pattern. Enteric contrast remains in the colon. There is no definite evidence for pneumoperitoneum. No abnormal calcifications noted. Impression: Nonspecific bowel-gas pattern. Enteric contrast remains in the colon.
[2025-05-18 15:53] LABS: Hematocrit 26.3 % (36.0-46.0); Nucleated Red Blood Cells % 0.1 %
[2025-05-18 15:54] LABS: Hemoglobin 8.5 g/dL (12.2-16.2); Mean Corpuscular Hemoglobin 33.2 pg (28.0-32.0); Mean Corpuscular Volume 102.4 fL (80.0-100.0)
--- NOTE | 2025-05-18 17:41 | DVHPN2 ---
Progress Note - Dictate Date Seen: May 18, 2025 Medical Necessity Reason Pt with a Central, PICC or Fol: Yes The following are medically ne: PICC Line, Grewal Catheter vital signs Vital Sign Date Time Temp Pulse Resp B/P (MAP) Pulse Ox O2 Delivery O2 Flow Rate FiO2 05/18/25 17:16 128/54 05/18/25 16:00 30 05/18/25 16:00 90 05/18/25 16:00 22 95 Mechanical Ventilator+ 05/18/25 12:00 98.4 98.4 Total Intake and Output 05/17/25 05/17/25 05/18/25 15:00 23:00 07:00 Intake Total 485.488 ml 585.052 ml 943.488 ml Output Total 2200 ml 1700 ml Balance 485.488 ml -1614.948 ml -756.512 ml medications Current Medications Medications Dose Ordered Sig/Gregory Route Start Time Stop Time Status Last Admin Dose Admin Pantoprazole Sodium 40 mg DAILY IV 04/16/25 10:00 05/18/25 10:27 40 MG Amino Acids 0 ml @ 0 mls/hr PER PHARMACY IV 04/18/25 17:45 Sodium Chloride 10 ml QSHIFT@10,22 IV 04/21/25 22:00 05/18/25 10:27 10 ML Albuterol 2.5 mg Q3HPRN PRN NEB 04/24/25 16:15 05/15/25 14:26 2.5 MG Nicardipine/ Sodium Chloride 200 ml @ 50 mls/hr Q4H IV 04/25/25 09:45 Diagnostic Test (Pha) 1 strip Q6HR 04/30/25 12:00 05/18/25 12:00 1 STRIP Insulin Human Regular FOLLOW SLIDING SCALE Q6HR SC 04/30/25 12:00 05/14/25 00:03 2 UNITS Dextrose 50 ml UD IV 04/30/25 09:00 05/09/25 00:20 50 ML Lidocaine 1 patch DAILY TOP 04/30/25 10:30 05/17/25 08:26 1 PATCH Morphine Sulfate 1 mg Q6HP PRN IV 04/30/25 10:30 05/02/25 17:58 1 MG Metoprolol Tartrate 2.5 mg Q4HR PRN IV 04/30/25 11:30 05/14/25 23:33 2.5 MG Propofol 100 ml @ 1.296 mls/ hr Q24H IV 05/02/25 20:45 05/18/25 01:57 7.776 MLS/HR Fentanyl Citrate 250 ml @ 2.5 mls/hr Q24H IV 05/02/25 20:45 05/17/25 19:28 2.5 MLS/HR Acetylcysteine 100 mg Q4HR NEB 05/05/25 10:00 UNV Enoxaparin Sodium 50 mg Q12HR SC 05/07/25 22:00 05/18/25 10:28 50 MG Vancomycin HCl 0 ml @ 0 mls/hr PER PHARMACY IV 05/09/25 10:30 Acetaminophen 650 mg Q6HP PRN [place] 05/09/25 10:30 Meropenem 50 ml @ 17 mls/hr Q12HR IV 05/09/25 14:00 05/18/25 10:27 17 MLS/HR Vancomycin HCl 250 ml @ 200 mls/hr Q12H IV 05/09/25 18:00 Cancel Dextrose/Sodium Chloride 1,000 ml @ 30 mls/hr Q24H IV 05/10/25 18:15 05/17/25 19:07 30 MLS/HR Levalbuterol HCl 0.625 mg Q8HR NEB 05/11/25 14:00 05/18/25 14:03 0.625 MG Ipratropium [place] 0.5 mg Q8HR NEB 05/11/25 14:00 05/18/25 14:03 0.5 MG Acetylcysteine 100 mg Q8HR NEB 05/11/25 14:00 05/18/25 14:03 100 MG Metoclopramide HCl 5 mg Q8H IV 05/11/25 18:00 05/18/25 10:27 5 MG Potassium Acetate 40 meq/Potassium Phosphate 35 meq/ Calcium Gluconate 6.975 meq/ Magnesium Sulfate 26 meq/ Multivitamins 10 ml/Chromium/ Copper/Manganese/ Zinc 1 ml/Amino Acids/Dextrose 1,160.4545 ml @ 48.6 mls/hr [id number] IV 05/14/25 22:00 05/15/25 21:59 Cancel Amiodarone HCl 250 ml @ 16.66 mls/ hr Q15H1M IV 05/15/25 07:15 05/18/25 10:28 16.66 MLS/HR Docusate Sodium 100 mg BID PO 05/15/25 10:00 05/18/25 10:27 100 MG Calcium Gluconate 6.975 meq/ Magnesium Sulfate 28 meq/ Multivitamins 10 ml/Chromium/ Copper/Manganese/ Zinc 1 ml/Amino Acids/Dextrose/ Purified Water 1,233 ml @ 51 mls/hr [id number] IV 05/17/25 22:00 05/18/25 21:59 05/17/25 20:58 51 MLS/HR Vancomycin HCl 100 ml @ 100 mls/hr Q12H IV 05/18/25 03:30 05/18/25 03:39 100 MLS/HR Sodium Phosphate 20 meq/Potassium Acetate 20 meq/ Calcium Gluconate 9.3 meq/Magnesium Sulfate 30 meq/ Multivitamins 10 ml/Chromium/ Copper/Manganese/ Zinc 1 ml/Amino Acids/Dextrose/ Purified Water 1,253.5 ml @ 52 mls/hr Q24H7M IV 05/18/25 22:00 05/19/25 21:59 laboratory and microbiology Laboratory Tests 05/18/25 14:55 05/18/25 04:00 Test 05/18/25 04:00 Range/Units Serum Glucose 109 H 74-106 mg/dL Assessment/Plan Impression Acute hypoxemic respiratory failure Lung collapse Pneumonia Atelectasis SBO Patient seen and examined in ICU Events On mechanical ventilation S/p intubation PEEP 5, FiO2 30% Labs and imaging reviewed ABG reviewed Management Vent support Titrate to maintain sats 90% or above Daily sedation holiday When patient is more awake, proceed to weaning trial Pressure support /5, extubate when ready Continue antibiotics F/u cultures Bronchodilators Monitor renal function Monitor electrolytes Supplement as needed Pressors as needed for hemodynamic support To maintain a mean arterial pressure of 65 mmHg F/u general surgery DVT prophylaxis Critical care time 35 minutes Dietary Evaluation Review Recommendations by RD: PPN/TPN Comments: 1) Increase TPN to meet at least 75% estimated daily needs 2) Advance to cardiac diet when medically feasible 3) Follow-up with gastroenterology and neurology 4) Continue to monitor I&O, labs, and skin integrity Expected Outcomes/Goals: 1) nutrition support to meet at least 75% estimated daily needs 2) labs to improve 3) diet to advance 4) gradual wt gain 5) f/u in 2-3 days Plan discussed with: Other (Rn) BRUNO GOLDAMN MD May 18, 2025 17:41
--- NOTE | 2025-05-18 20:43 | DVHPN2 ---
Progress Note Date Seen: May 18, 2025 Medical Necessity Reason Pt with a Central, PICC or Fol: Yes The following are medically ne: PICC Line, Grewal Catheter Objective vital signs Vital Sign Date Time Temp Pulse Resp B/P (MAP) Pulse Ox O2 Delivery O2 Flow Rate FiO2 05/18/25 20:00 30 05/18/25 20:00 89 27 99 Mechanical Ventilator+ 05/18/25 20:00 98.2 133/56 (81) 98.2 Total Intake and Output 05/17/25 05/17/25 05/18/25 15:00 23:00 07:00 Intake Total 485.488 ml 585.052 ml 943.488 ml Output Total 2200 ml 1700 ml Balance 485.488 ml -1614.948 ml -756.512 ml medications Current Medications Medications Dose Ordered Sig/Gregory Route Start Time Stop Time Status Last Admin Dose Admin Pantoprazole Sodium 40 mg DAILY IV 04/16/25 10:00 05/18/25 10:27 40 MG Amino Acids 0 ml @ 0 mls/hr PER PHARMACY IV 04/18/25 17:45 Sodium Chloride 10 ml QSHIFT@10,22 IV 04/21/25 22:00 05/18/25 10:27 10 ML Albuterol 2.5 mg Q3HPRN PRN NEB 04/24/25 16:15 05/15/25 14:26 2.5 MG Nicardipine/ Sodium Chloride 200 ml @ 50 mls/hr Q4H IV 04/25/25 09:45 Diagnostic Test (Pha) 1 strip Q6HR 04/30/25 12:00 05/18/25 18:00 1 STRIP Insulin Human Regular FOLLOW SLIDING SCALE Q6HR SC 04/30/25 12:00 05/14/25 00:03 2 UNITS Dextrose 50 ml UD IV 04/30/25 09:00 05/09/25 00:20 50 ML Lidocaine 1 patch DAILY TOP 04/30/25 10:30 05/17/25 08:26 1 PATCH Morphine Sulfate 1 mg Q6HP PRN IV 04/30/25 10:30 05/02/25 17:58 1 MG Metoprolol Tartrate 2.5 mg Q4HR PRN IV 04/30/25 11:30 05/14/25 23:33 2.5 MG Propofol 100 ml @ 1.296 mls/ hr Q24H IV 05/02/25 20:45 05/18/25 18:53 7.776 MLS/HR Fentanyl Citrate 250 ml @ 2.5 mls/hr Q24H IV 05/02/25 20:45 05/17/25 19:28 2.5 MLS/HR Acetylcysteine 100 mg Q4HR NEB 05/05/25 10:00 UNV Enoxaparin Sodium 50 mg Q12HR SC 05/07/25 22:00 05/18/25 10:28 50 MG Vancomycin HCl 0 ml @ 0 mls/hr PER PHARMACY IV 05/09/25 10:30 Acetaminophen 650 mg Q6HP PRN [place] 05/09/25 10:30 Meropenem 50 ml @ 17 mls/hr Q12HR IV 05/09/25 14:00 05/18/25 10:27 17 MLS/HR Vancomycin HCl 250 ml @ 200 mls/hr Q12H IV 05/09/25 18:00 Cancel Dextrose/Sodium Chloride 1,000 ml @ 30 mls/hr Q24H IV 05/10/25 18:15 05/17/25 19:07 30 MLS/HR Levalbuterol HCl 0.625 mg Q8HR NEB 05/11/25 14:00 05/18/25 14:03 0.625 MG Ipratropium [place] 0.5 mg Q8HR NEB 05/11/25 14:00 05/18/25 14:03 0.5 MG Acetylcysteine 100 mg Q8HR NEB 05/11/25 14:00 05/18/25 14:03 100 MG Metoclopramide HCl 5 mg Q8H IV 05/11/25 18:00 05/18/25 18:52 5 MG Potassium Acetate 40 meq/Potassium Phosphate 35 meq/ Calcium Gluconate 6.975 meq/ Magnesium Sulfate 26 meq/ Multivitamins 10 ml/Chromium/ Copper/Manganese/ Zinc 1 ml/Amino Acids/Dextrose 1,160.4545 ml @ 48.6 mls/hr [id number] IV 05/14/25 22:00 05/15/25 21:59 Cancel Amiodarone HCl 250 ml @ 16.66 mls/ hr Q15H1M IV 05/15/25 07:15 05/18/25 10:28 16.66 MLS/HR Docusate Sodium 100 mg BID PO 05/15/25 10:00 05/18/25 10:27 100 MG Calcium Gluconate 6.975 meq/ Magnesium Sulfate 28 meq/ Multivitamins 10 ml/Chromium/ Copper/Manganese/ Zinc 1 ml/Amino Acids/Dextrose/ Purified Water 1,233 ml @ 51 mls/hr [id number] IV 05/17/25 22:00 05/18/25 21:59 05/17/25 20:58 51 MLS/HR Vancomycin HCl 100 ml @ 100 mls/hr Q12H IV 05/18/25 03:30 05/18/25 18:52 100 MLS/HR Sodium Phosphate 20 meq/Potassium Acetate 20 meq/ Calcium Gluconate 9.3 meq/Magnesium Sulfate 30 meq/ Multivitamins 10 ml/Chromium/ Copper/Manganese/ Zinc 1 ml/Amino Acids/Dextrose/ Purified Water 1,253.5 ml @ 52 mls/hr Q24H7M IV 05/18/25 22:00 05/19/25 21:59 laboratory and microbiology Laboratory Tests 05/18/25 14:55 05/18/25 04:00 Test 05/18/25 04:00 Range/Units Serum Glucose 109 H 74-106 mg/dL Microbiology Date/Time Source Procedure Growth Status 05/16/25 13:14 Urine - [place] Urine Culture - Preliminary Resulted 05/09/25 11:22 Blood Blood Culture - Final NO GROWTH AFTER 5 DAYS OF INCUBATION. Complete 05/02/25 20:30 Sputum Gram Stain - Final Complete 05/02/25 20:30 Sputum Respiratory Culture - Final Complete 05/02/25 00:00 Nose MRSA Screen - Final Complete 04/30/25 14:30 Pleural Fluid Gram Stain - Final Complete 04/30/25 14:30 Pleural Fluid Body Fluid Culture - Final Complete Problem List/Assessment/Plan Problem List/Assessment/Plan AFEBRILE VSS REMAINS INTUBATED ABD SOFT NON DISTENDED NO BM RECTAL EAM DONE AT BEDSIDE TRACE BM CLOSE OBSERVATION CONTINUE SUPPORTIVE CARE FAMILY AWARE OF PT CONDITION NURSE AT BEDSIDE ONGOING PULM EVAL NG TO LIS KUB RETAINED CONTRAST IN TRANSVERSE COLON CONSIDER GI EVAL FOR POSSIBLE SIGMOIDOSCOPY CONSIDER EMERGENT SURGERY BASED ON ONGOING EVAL Plan discussed with: Other Dietary Evaluation Review Recommendations by RD: PPN/TPN Comments: 1) Increase TPN to meet at least 75% estimated daily needs 2) Advance to cardiac diet when medically feasible 3) Follow-up with gastroenterology and neurology 4) Continue to monitor I&O, labs, and skin integrity Expected Outcomes/Goals: 1) nutrition support to meet at least 75% estimated daily needs 2) labs to improve 3) diet to advance 4) gradual wt gain 5) f/u in 2-3 days GLORIA MCNEAL MD May 18, 2025 20:43
[2025-05-18] MEDS: TPN PER PHARMACY IV NR (21:38)
--- NOTE | 2025-05-18 22:02 | DVHPN2 ---
Reviewed: Care Plan, H&P, Labs, Medications Changes from previous H/P or p: No Changes General: Per HPI Objective Vitals Vital Signs Date Time Temp Pulse Resp B/P (MAP) Pulse Ox O2 Delivery O2 Flow Rate FiO2 05/18/25 20:19 87 25 133/56 (81) 99 30 05/18/25 20:00 Mechanical Ventilator+ 05/18/25 20:00 98.2 98.2 Intake/Output Intake and Output 05/18/25 07:00 Intake Total 2013.028 ml Output Total 3900 ml Balance -1885.972 ml IV Total 2013.028 ml Output Urine Total 3850 ml Gastric Drainage Total 50 ml General Appearance: mild distress, Other (Intubated and sedated) HEENT: Atraumatic, PERRLA, Other Lungs: Other (On vent. Transmitted breath sounds bilaterally. Decreased air entry bilaterally. No wheezing. Bibasilar crackles.) Cardiovascular: Normal S1, Normal S2, Other (Fibrillation with controlled rate) Abdomen: No tenderness, No hepatospenomegaly, Other (Hypoactive bowel sounds.) Genitourinary: No Apparent Abnormalities (Grewal catheter) Musculoskeletal: Normal sensory function, Normal motor function Extremities: No edema, Normal pulses, No tenderness/swelling Neuro: Cranial nerves 3-12 NL, Other Skin: Dry, Intact, Wounds, Other (Surgical wound D&I) Psych/Mental Status: Mood NL Medications Current Medications Medications Dose Ordered Sig/Gregory Route Start Time Stop Time Status Last Admin Dose Admin Pantoprazole Sodium 40 mg DAILY IV 04/16/25 10:00 05/18/25 10:27 40 MG Amino Acids 0 ml @ 0 mls/hr PER PHARMACY IV 04/18/25 17:45 Sodium Chloride 10 ml QSHIFT@10,22 IV 04/21/25 22:00 05/18/25 21:38 10 ML Albuterol 2.5 mg Q3HPRN PRN NEB 04/24/25 16:15 05/15/25 14:26 2.5 MG Nicardipine/ Sodium Chloride 200 ml @ 50 mls/hr Q4H IV 04/25/25 09:45 Diagnostic Test (Pha) 1 strip Q6HR 04/30/25 12:00 05/18/25 18:00 1 STRIP Insulin Human Regular FOLLOW SLIDING SCALE Q6HR SC 04/30/25 12:00 05/14/25 00:03 2 UNITS Dextrose 50 ml UD IV 04/30/25 09:00 05/09/25 00:20 50 ML Lidocaine 1 patch DAILY TOP 04/30/25 10:30 05/17/25 08:26 1 PATCH Morphine Sulfate 1 mg Q6HP PRN IV 04/30/25 10:30 05/02/25 17:58 1 MG Metoprolol Tartrate 2.5 mg Q4HR PRN IV 04/30/25 11:30 05/14/25 23:33 2.5 MG Propofol 100 ml @ 1.296 mls/ hr Q24H IV 05/02/25 20:45 05/18/25 18:53 7.776 MLS/HR Fentanyl Citrate 250 ml @ 2.5 mls/hr Q24H IV 05/02/25 20:45 05/17/25 19:28 2.5 MLS/HR Acetylcysteine 100 mg Q4HR NEB 05/05/25 10:00 UNV Enoxaparin Sodium 50 mg Q12HR SC 05/07/25 22:00 05/18/25 21:35 50 MG Vancomycin HCl 0 ml @ 0 mls/hr PER PHARMACY IV 05/09/25 10:30 Acetaminophen 650 mg Q6HP PRN [place] 05/09/25 10:30 Meropenem 50 ml @ 17 mls/hr Q12HR IV 05/09/25 14:00 05/18/25 21:35 17 MLS/HR Vancomycin HCl 250 ml @ 200 mls/hr Q12H IV 05/09/25 18:00 Cancel Dextrose/Sodium Chloride 1,000 ml @ 30 mls/hr Q24H IV 05/10/25 18:15 05/17/25 19:07 30 MLS/HR Levalbuterol HCl 0.625 mg Q8HR NEB 05/11/25 14:00 05/18/25 14:03 0.625 MG Ipratropium [place] 0.5 mg Q8HR NEB 05/11/25 14:00 05/18/25 14:03 0.5 MG Acetylcysteine 100 mg Q8HR NEB 05/11/25 14:00 05/18/25 14:03 100 MG Metoclopramide HCl 5 mg Q8H IV 05/11/25 18:00 05/18/25 18:52 5 MG Potassium Acetate 40 meq/Potassium Phosphate 35 meq/ Calcium Gluconate 6.975 meq/ Magnesium Sulfate 26 meq/ Multivitamins 10 ml/Chromium/ Copper/Manganese/ Zinc 1 ml/Amino Acids/Dextrose 1,160.4545 ml @ 48.6 mls/hr [id number] IV 05/14/25 22:00 05/15/25 21:59 Cancel Amiodarone HCl 250 ml @ 16.66 mls/ hr Q15H1M IV 05/15/25 07:15 05/18/25 10:28 16.66 MLS/HR Docusate Sodium 100 mg BID PO 05/15/25 10:00 05/18/25 21:35 100 MG Calcium Gluconate 6.975 meq/ Magnesium Sulfate 28 meq/ Multivitamins 10 ml/Chromium/ Copper/Manganese/ Zinc 1 ml/Amino Acids/Dextrose/ Purified Water 1,233 ml @ 51 mls/hr [id number] IV 05/17/25 22:00 05/18/25 21:59 05/17/25 20:58 51 MLS/HR Vancomycin HCl 100 ml @ 100 mls/hr Q12H IV 05/18/25 03:30 05/18/25 18:52 100 MLS/HR Sodium Phosphate 20 meq/Potassium Acetate 20 meq/ Calcium Gluconate 9.3 meq/Magnesium Sulfate 30 meq/ Multivitamins 10 ml/Chromium/ Copper/Manganese/ Zinc 1 ml/Amino Acids/Dextrose/ Purified Water 1,253.5 ml @ 52 mls/hr Q24H7M IV 05/18/25 22:00 05/19/25 21:59 05/18/25 21:38 52 MLS/HR Laboratory Results Laboratory Tests 05/18/25 04:00 05/18/25 14:55 Chemistry Test 05/18/25 04:00 Albumin 2.7 g/dL (3.2-4.8) L Calcium Level 7.6 mg/dL (8.7-10.4) L Magnesium Level 1.9 mg/dL (1.6-2.6) Phosphorus Level 2.8 mg/dL (2.4-5.1) Total Protein 5.0 g/dL (5.7-8.2) L LFT Test 05/18/25 04:00 Alanine Aminotransferase (ALT) 40 U/L (7-40) Alkaline Phosphatase 122 U/L (46-116) H Aspartate Amino Transferase (AST) 26 U/L (13-40) Total Bilirubin 0.3 mg/dL (0.2-1.0) Urinalysis Test 04/15/25 15:45 05/11/25 14:35 Urine Amorphous Crystals Few /hpf (None Seen) Urine Hyaline Casts Few /lpf (0 - 2) Urine Mucus Few (None Seen) Urine Color Light-yellow (Yellow) Urine Clarity Clear (Clear) Urine pH 7.0 (5.0-9.0) Urine Specific [place] 1.021 (1.001-1.035) Urine Protein Negative (Negative) Urine Ketones Negative (Negative) Urine Blood 1+ /uL (Negative) H Urine Nitrite Negative (Negative) Urine Bilirubin Negative (Negative) Urine Urobilinogen Normal mg/dL (Negative) Urine Leukocyte Esterase Negative /uL (Negative) Urine RBC 55 /hpf (0 - 4) Urine Microscopic WBC 1 /HPF (0-5) Urine Squamous Epithelial Cells Few /hpf (<5) Urine Bacteria None seen /hpf (None Seen) Urine Glucose Normal mg/dL (Normal) Blood Gas Results Test 05/18/25 07:23 Arterial Blood pH 7.458 (7.350-7.450) FiO2 % 30.0 Microbiology Microbiology Date/Time Source Procedure Growth Status 05/16/25 13:14 Urine - [place] Urine Culture - Preliminary Resulted 05/09/25 11:22 Blood Blood Culture - Final NO GROWTH AFTER 5 DAYS OF INCUBATION. Complete 05/02/25 20:30 Sputum Gram Stain - Final Complete 05/02/25 20:30 Sputum Respiratory Culture - Final Complete 05/02/25 00:00 Nose MRSA Screen - Final Complete 04/30/25 14:30 Pleural Fluid Gram Stain - Final Complete 04/30/25 14:30 Pleural Fluid Body Fluid Culture - Final Complete Labs and/or images reviewed: Labs reviewed by me, Image(s) reviewed by me Assessment/Plan Assessment/Plan Impression: -choledocholithiasis -acute pancreatitis -small-bowel obstruction, recurrent -dementia -cachexia -sepsis -COPD -GERD -Post op delirium -Accelerated HTN -A. fib Plan: Events: current intubated -continue IV Reglan, start colace -out of bed to chair with physical therapy -Continue TPN -Pulmonology consult- case discussed -Continue Zosyn, micafungin -PPI -Antihypertensives -pain management: start percocet -continue bronchodilators, Mucomyst -repeat labs and daily chest x-ray in a.m. 05/17/2025: pt remains on vent. no bowel movement. Abd X-ray repeat per Gen Surg Total time spent with patient discussing and formulating plan of care: 35 critical care minutes. Plan discussed with: Other (nursing) Date of Service: May 17, 2025 Billing Provider: REESE SORTO DO Common Visit Codes: [id number] CARE 30-74 MIN REESE SORTO DO May 18, 2025 22:02
--- NOTE | 2025-05-18 22:07 | DVHPN2 ---
Reviewed: Care Plan, H&P, Labs, Medications Changes from previous H/P or p: No Changes General: Per HPI Objective Vitals Vital Signs Date Time Temp Pulse Resp B/P (MAP) Pulse Ox O2 Delivery O2 Flow Rate FiO2 05/18/25 20:19 87 25 133/56 (81) 99 30 05/18/25 20:00 Mechanical Ventilator+ 05/18/25 20:00 98.2 98.2 Intake/Output Intake and Output 05/18/25 07:00 Intake Total 2013.028 ml Output Total 3900 ml Balance -1885.972 ml IV Total 2013.028 ml Output Urine Total 3850 ml Gastric Drainage Total 50 ml General Appearance: mild distress, Other (Intubated and sedated) HEENT: Atraumatic, PERRLA, Other Lungs: Other (On vent. Transmitted breath sounds bilaterally. Decreased air entry bilaterally. No wheezing. Bibasilar crackles.) Cardiovascular: Normal S1, Normal S2, Other (Fibrillation with controlled rate) Abdomen: No tenderness, No hepatospenomegaly, Other (Hypoactive bowel sounds.) Genitourinary: No Apparent Abnormalities (Grewal catheter) Musculoskeletal: Normal sensory function, Normal motor function Extremities: No edema, Normal pulses, No tenderness/swelling Neuro: Cranial nerves 3-12 NL, Other Skin: Dry, Intact, Wounds, Other (Surgical wound D&I) Psych/Mental Status: Mood NL Medications Current Medications Medications Dose Ordered Sig/Gregory Route Start Time Stop Time Status Last Admin Dose Admin Pantoprazole Sodium 40 mg DAILY IV 04/16/25 10:00 05/18/25 10:27 40 MG Amino Acids 0 ml @ 0 mls/hr PER PHARMACY IV 04/18/25 17:45 Sodium Chloride 10 ml QSHIFT@10,22 IV 04/21/25 22:00 05/18/25 21:38 10 ML Albuterol 2.5 mg Q3HPRN PRN NEB 04/24/25 16:15 05/15/25 14:26 2.5 MG Nicardipine/ Sodium Chloride 200 ml @ 50 mls/hr Q4H IV 04/25/25 09:45 Diagnostic Test (Pha) 1 strip Q6HR 04/30/25 12:00 05/18/25 18:00 1 STRIP Insulin Human Regular FOLLOW SLIDING SCALE Q6HR SC 04/30/25 12:00 05/14/25 00:03 2 UNITS Dextrose 50 ml UD IV 04/30/25 09:00 05/09/25 00:20 50 ML Lidocaine 1 patch DAILY TOP 04/30/25 10:30 05/17/25 08:26 1 PATCH Morphine Sulfate 1 mg Q6HP PRN IV 04/30/25 10:30 05/02/25 17:58 1 MG Metoprolol Tartrate 2.5 mg Q4HR PRN IV 04/30/25 11:30 05/14/25 23:33 2.5 MG Propofol 100 ml @ 1.296 mls/ hr Q24H IV 05/02/25 20:45 05/18/25 18:53 7.776 MLS/HR Fentanyl Citrate 250 ml @ 2.5 mls/hr Q24H IV 05/02/25 20:45 05/17/25 19:28 2.5 MLS/HR Acetylcysteine 100 mg Q4HR NEB 05/05/25 10:00 UNV Enoxaparin Sodium 50 mg Q12HR SC 05/07/25 22:00 05/18/25 21:35 50 MG Vancomycin HCl 0 ml @ 0 mls/hr PER PHARMACY IV 05/09/25 10:30 Acetaminophen 650 mg Q6HP PRN [place] 05/09/25 10:30 Meropenem 50 ml @ 17 mls/hr Q12HR IV 05/09/25 14:00 05/18/25 21:35 17 MLS/HR Vancomycin HCl 250 ml @ 200 mls/hr Q12H IV 05/09/25 18:00 Cancel Dextrose/Sodium Chloride 1,000 ml @ 30 mls/hr Q24H IV 05/10/25 18:15 05/17/25 19:07 30 MLS/HR Levalbuterol HCl 0.625 mg Q8HR NEB 05/11/25 14:00 05/18/25 14:03 0.625 MG Ipratropium [place] 0.5 mg Q8HR NEB 05/11/25 14:00 05/18/25 14:03 0.5 MG Acetylcysteine 100 mg Q8HR NEB 05/11/25 14:00 05/18/25 14:03 100 MG Metoclopramide HCl 5 mg Q8H IV 05/11/25 18:00 05/18/25 18:52 5 MG Potassium Acetate 40 meq/Potassium Phosphate 35 meq/ Calcium Gluconate 6.975 meq/ Magnesium Sulfate 26 meq/ Multivitamins 10 ml/Chromium/ Copper/Manganese/ Zinc 1 ml/Amino Acids/Dextrose 1,160.4545 ml @ 48.6 mls/hr [id number] IV 05/14/25 22:00 05/15/25 21:59 Cancel Amiodarone HCl 250 ml @ 16.66 mls/ hr Q15H1M IV 05/15/25 07:15 05/18/25 10:28 16.66 MLS/HR Docusate Sodium 100 mg BID PO 05/15/25 10:00 05/18/25 21:35 100 MG Calcium Gluconate 6.975 meq/ Magnesium Sulfate 28 meq/ Multivitamins 10 ml/Chromium/ Copper/Manganese/ Zinc 1 ml/Amino Acids/Dextrose/ Purified Water 1,233 ml @ 51 mls/hr [id number] IV 05/17/25 22:00 05/18/25 21:59 05/17/25 20:58 51 MLS/HR Vancomycin HCl 100 ml @ 100 mls/hr Q12H IV 05/18/25 03:30 05/18/25 18:52 100 MLS/HR Sodium Phosphate 20 meq/Potassium Acetate 20 meq/ Calcium Gluconate 9.3 meq/Magnesium Sulfate 30 meq/ Multivitamins 10 ml/Chromium/ Copper/Manganese/ Zinc 1 ml/Amino Acids/Dextrose/ Purified Water 1,253.5 ml @ 52 mls/hr Q24H7M IV 05/18/25 22:00 05/19/25 21:59 05/18/25 21:38 52 MLS/HR Laboratory Results Laboratory Tests 05/18/25 04:00 05/18/25 14:55 Chemistry Test 05/18/25 04:00 Albumin 2.7 g/dL (3.2-4.8) L Calcium Level 7.6 mg/dL (8.7-10.4) L Magnesium Level 1.9 mg/dL (1.6-2.6) Phosphorus Level 2.8 mg/dL (2.4-5.1) Total Protein 5.0 g/dL (5.7-8.2) L LFT Test 05/18/25 04:00 Alanine Aminotransferase (ALT) 40 U/L (7-40) Alkaline Phosphatase 122 U/L (46-116) H Aspartate Amino Transferase (AST) 26 U/L (13-40) Total Bilirubin 0.3 mg/dL (0.2-1.0) Urinalysis Test 04/15/25 15:45 05/11/25 14:35 Urine Amorphous Crystals Few /hpf (None Seen) Urine Hyaline Casts Few /lpf (0 - 2) Urine Mucus Few (None Seen) Urine Color Light-yellow (Yellow) Urine Clarity Clear (Clear) Urine pH 7.0 (5.0-9.0) Urine Specific [place] 1.021 (1.001-1.035) Urine Protein Negative (Negative) Urine Ketones Negative (Negative) Urine Blood 1+ /uL (Negative) H Urine Nitrite Negative (Negative) Urine Bilirubin Negative (Negative) Urine Urobilinogen Normal mg/dL (Negative) Urine Leukocyte Esterase Negative /uL (Negative) Urine RBC 55 /hpf (0 - 4) Urine Microscopic WBC 1 /HPF (0-5) Urine Squamous Epithelial Cells Few /hpf (<5) Urine Bacteria None seen /hpf (None Seen) Urine Glucose Normal mg/dL (Normal) Blood Gas Results Test 05/18/25 07:23 Arterial Blood pH 7.458 (7.350-7.450) FiO2 % 30.0 Microbiology Microbiology Date/Time Source Procedure Growth Status 05/16/25 13:14 Urine - [place] Urine Culture - Preliminary Resulted 05/09/25 11:22 Blood Blood Culture - Final NO GROWTH AFTER 5 DAYS OF INCUBATION. Complete 05/02/25 20:30 Sputum Gram Stain - Final Complete 05/02/25 20:30 Sputum Respiratory Culture - Final Complete 05/02/25 00:00 Nose MRSA Screen - Final Complete 04/30/25 14:30 Pleural Fluid Gram Stain - Final Complete 04/30/25 14:30 Pleural Fluid Body Fluid Culture - Final Complete Assessment/Plan Assessment/Plan Impression: -choledocholithiasis -acute pancreatitis -small-bowel obstruction, recurrent -dementia -cachexia -sepsis -COPD -GERD -Post op delirium -Accelerated HTN -A. fib Plan: Events: current intubated -continue IV Reglan, start colace -out of bed to chair with physical therapy -Continue TPN -Pulmonology consult- case discussed -Continue Zosyn, micafungin -PPI -Antihypertensives -pain management: start percocet -continue bronchodilators, Mucomyst -repeat labs and daily chest x-ray in a.m. 05/17/2025: pt remains on vent. no bowel movement. Abd X-ray repeat per Gen Surg 05/18/2025: remains on vent. discussed with nursing staff. reviewed abd X-ray Total time spent with patient discussing and formulating plan of care: 35 critical care minutes. Plan discussed with: Other Date of Service: May 18, 2025 Billing Provider: REESE SORTO DO Common Visit Codes: [id number] CARE 30-74 MIN REESE SORTO DO May 18, 2025 22:07
[2025-05-19] VITALS (94 sets, daily range): BP systolic 88–150; BP diastolic 33–78; PULSE 17–91; RESP 4–26; TEMP 98.2–99.8; O2SAT 93–100
[2025-05-19 04:26] LABS: Hemoglobin 7.1 g/dL (12.2-16.2)
[2025-05-19 04:29] LABS: Hematocrit 21.0 % (36.0-46.0); Mean Corpuscular Hemoglobin 34.1 pg (28.0-32.0); Mean Corpuscular Volume 101.4 fL (80.0-100.0); Nucleated Red Blood Cells % 0.1 %
[2025-05-19 04:37] LABS: Anion Gap 9 (5-15); BUN/Creatinine Ratio 51.4 (10.0-20.0); Bilirubin, Total 0.3 mg/dL (0.2-1.0); Blood Urea Nitrogen 19 mg/dL (9-23); Carbon Dioxide 27 mmol/L (20-31); Glucose 106 mg/dL (74-106); Magnesium 1.8 mg/dL (1.6-2.6)
--- NOTE | 2025-05-19 04:54 | DVH ---
CHEST RADIOGRAPH Indication: Check ETT placement Technique: 1 view Comparison: XY CHEST PORTABLE on DOS: 05/17/25, XY CHEST XRAY 1 VIEW on DOS: 05/16/25, XY CHEST PORTABLE on DOS: 05/15/25, XY CHEST PORTABLE on DOS: 05/14/25, XY CHEST PORTABLE on DOS: 05/14/25 FINDINGS: Lines and Tubes: Unchanged. Lungs/Pleura: A portion of the right lower chest is excluded from field of view. Unchanged where visualized. Cardiomediastinum: Unchanged. IMPRESSION: 1. No significant change from 2 days prior. Stable support devices similar mixed pulmonary opacities in the lung bases, with probable small left pleural effusion.
[2025-05-19 04:58] LABS: Alanine Aminotransferase 41 U/L (7-40); Albumin 2.6 g/dL (3.2-4.8); Alkaline Phosphatase 118 U/L (46-116); Calcium 7.4 mg/dL (8.7-10.4); Chloride 109 mmol/L (98-107); Potassium 3.4 mmol/L (3.5-5.1); Sodium 145 mmol/L (136-145); Total Protein 4.9 g/dL (5.7-8.2)
[2025-05-19 07:54] LABS: Base Excess 0.7 mmol/L (-2.0-3.0)
[2025-05-19] MEDS: POTASSIUM CHL 20MEQ/100ML 100 ML IV ONE ×2 (09:26→12:30)
[2025-05-19] MEDS ORDERED: SODIUM CHLORIDE LOCK 10 ML ONE (09:46)
[2025-05-19] MEDS ORDERED: MIDAZOLAM HCL 5 MG/ML-1ML VIAL ONE (09:46)
[2025-05-19] MEDS ORDERED: diphenhydrAMINE HCL 50 MG/1 ML VL ONE (09:46)
[2025-05-19] MEDS ORDERED: fentaNYL CITRATE 100 MCG/2 ML VL ONE (09:47)
[2025-05-19] MEDS: SODIUM CHLORIDE 0.9% 500 ML IV ONE (10:00)
--- NOTE | 2025-05-19 12:26 | DVHPN2 ---
Subjective Intubated and following commands Reviewed: Care Plan, H&P, Labs, Medications Changes from previous H/P or p: No Changes General: Per HPI Objective Vitals Vital Signs Date Time Temp Pulse Resp B/P (MAP) Pulse Ox O2 Delivery O2 Flow Rate FiO2 05/19/25 12:06 74 22 120/78 (92) 96 30 05/19/25 06:00 Mechanical Ventilator+ 05/19/25 04:02 98.8 98.8 Intake/Output Intake and Output 05/19/25 07:00 Intake Total 2831.880 ml Output Total 2280 ml Balance 551.880 ml Intake Oral 10 ml IV Total 2821.880 ml Output Urine Total 2250 ml Stool Total 0 ml Gastric Drainage Total 30 ml General Appearance: mild distress, Other (Intubated and sedated) HEENT: Atraumatic, PERRLA, Other Lungs: Other (On vent. Transmitted breath sounds bilaterally. Decreased air entry bilaterally. No wheezing. Bibasilar crackles.) Cardiovascular: Normal S1, Normal S2, Other (Fibrillation with controlled rate) Abdomen: No tenderness, No hepatospenomegaly, Other (Hypoactive bowel sounds.) Genitourinary: No Apparent Abnormalities (Grewal catheter) Musculoskeletal: Normal sensory function, Normal motor function Extremities: No edema, Normal pulses, No tenderness/swelling Neuro: Cranial nerves 3-12 NL, Other Skin: Dry, Intact, Wounds, Other (Surgical wound D&I) Psych/Mental Status: Mood NL Medications Current Medications Medications Dose Ordered Sig/Gregory Route Start Time Stop Time Status Last Admin Dose Admin Pantoprazole Sodium 40 mg DAILY IV 04/16/25 10:00 05/19/25 09:24 40 MG Amino Acids 0 ml @ 0 mls/hr PER PHARMACY IV 04/18/25 17:45 Sodium Chloride 10 ml QSHIFT@10,22 IV 04/21/25 22:00 05/19/25 09:26 10 ML Albuterol 2.5 mg Q3HPRN PRN NEB 04/24/25 16:15 05/15/25 14:26 2.5 MG Nicardipine/ Sodium Chloride 200 ml @ 50 mls/hr Q4H IV 04/25/25 09:45 Diagnostic Test (Pha) 1 strip Q6HR 04/30/25 12:00 05/18/25 23:42 1 STRIP Insulin Human Regular FOLLOW SLIDING SCALE Q6HR SC 04/30/25 12:00 05/14/25 00:03 2 UNITS Dextrose 50 ml UD IV 04/30/25 09:00 05/09/25 00:20 50 ML Lidocaine 1 patch DAILY TOP 04/30/25 10:30 05/17/25 08:26 1 PATCH Morphine Sulfate 1 mg Q6HP PRN IV 04/30/25 10:30 05/02/25 17:58 1 MG Metoprolol Tartrate 2.5 mg Q4HR PRN IV 04/30/25 11:30 05/14/25 23:33 2.5 MG Propofol 100 ml @ 1.296 mls/ hr Q24H IV 05/02/25 20:45 05/18/25 18:53 7.776 MLS/HR Fentanyl Citrate 250 ml @ 2.5 mls/hr Q24H IV 05/02/25 20:45 05/17/25 19:28 2.5 MLS/HR Acetylcysteine 100 mg Q4HR NEB 05/05/25 10:00 UNV Enoxaparin Sodium 50 mg Q12HR SC 05/07/25 22:00 05/18/25 21:35 50 MG Vancomycin HCl 0 ml @ 0 mls/hr PER PHARMACY IV 05/09/25 10:30 Acetaminophen 650 mg Q6HP PRN [place] 05/09/25 10:30 Meropenem 50 ml @ 17 mls/hr Q12HR IV 05/09/25 14:00 05/19/25 09:25 17 MLS/HR Vancomycin HCl 250 ml @ 200 mls/hr Q12H IV 05/09/25 18:00 Cancel Dextrose/Sodium Chloride 1,000 ml @ 30 mls/hr Q24H IV 05/10/25 18:15 05/17/25 19:07 30 MLS/HR Levalbuterol HCl 0.625 mg Q8HR NEB 05/11/25 14:00 05/19/25 06:31 0.625 MG Ipratropium [place] 0.5 mg Q8HR NEB 05/11/25 14:00 05/19/25 06:31 0.5 MG Acetylcysteine 100 mg Q8HR NEB 05/11/25 14:00 05/19/25 06:31 100 MG Metoclopramide HCl 5 mg Q8H IV 05/11/25 18:00 05/19/25 09:24 5 MG Potassium Acetate 40 meq/Potassium Phosphate 35 meq/ Calcium Gluconate 6.975 meq/ Magnesium Sulfate 26 meq/ Multivitamins 10 ml/Chromium/ Copper/Manganese/ Zinc 1 ml/Amino Acids/Dextrose 1,160.4545 ml @ 48.6 mls/hr [id number] IV 05/14/25 22:00 05/15/25 21:59 Cancel Amiodarone HCl 250 ml @ 16.66 mls/ hr Q15H1M IV 05/15/25 07:15 05/19/25 01:01 16.66 MLS/HR Docusate Sodium 100 mg BID PO 05/15/25 10:00 05/19/25 09:24 100 MG Vancomycin HCl 100 ml @ 100 mls/hr Q12H IV 05/18/25 03:30 05/19/25 03:36 100 MLS/HR Sodium Phosphate 20 meq/Potassium Acetate 20 meq/ Calcium Gluconate 9.3 meq/Magnesium Sulfate 30 meq/ Multivitamins 10 ml/Chromium/ Copper/Manganese/ Zinc 1 ml/Amino Acids/Dextrose/ Purified Water 1,253.5 ml @ 52 mls/hr Q24H7M IV 05/18/25 22:00 05/19/25 21:59 05/18/25 21:38 52 MLS/HR Potassium Acetate 20 meq/Potassium Phosphate 35 meq/ Calcium Gluconate 9.3 meq/Magnesium Sulfate 32 meq/ Multivitamins 10 ml/Chromium/ Copper/Manganese/ Zinc 1 ml/Amino Acids/Dextrose/ Purified Water 1,256.9545 ml @ 52 mls/hr [id number] IV 05/19/25 22:00 05/20/25 21:59 Laboratory Results Laboratory Tests 05/19/25 03:50 Chemistry Test 05/19/25 03:50 Albumin 2.6 g/dL (3.2-4.8) L Calcium Level 7.4 mg/dL (8.7-10.4) L Magnesium Level 1.8 mg/dL (1.6-2.6) Phosphorus Level 2.7 mg/dL (2.4-5.1) Total Protein 4.9 g/dL (5.7-8.2) L LFT Test 05/19/25 03:50 Alanine Aminotransferase (ALT) 41 U/L (7-40) H Alkaline Phosphatase 118 U/L (46-116) H Aspartate Amino Transferase (AST) 32 U/L (13-40) Total Bilirubin 0.3 mg/dL (0.2-1.0) Urinalysis Test 04/15/25 15:45 05/11/25 14:35 Urine Amorphous Crystals Few /hpf (None Seen) Urine Hyaline Casts Few /lpf (0 - 2) Urine Mucus Few (None Seen) Urine Color Light-yellow (Yellow) Urine Clarity Clear (Clear) Urine pH 7.0 (5.0-9.0) Urine Specific [place] 1.021 (1.001-1.035) Urine Protein Negative (Negative) Urine Ketones Negative (Negative) Urine Blood 1+ /uL (Negative) H Urine Nitrite Negative (Negative) Urine Bilirubin Negative (Negative) Urine Urobilinogen Normal mg/dL (Negative) Urine Leukocyte Esterase Negative /uL (Negative) Urine RBC 55 /hpf (0 - 4) Urine Microscopic WBC 1 /HPF (0-5) Urine Squamous Epithelial Cells Few /hpf (<5) Urine Bacteria None seen /hpf (None Seen) Urine Glucose Normal mg/dL (Normal) Blood Gas Results Test 05/19/25 07:05 Arterial Blood pH 7.455 (7.350-7.450) FiO2 % 30.0 Microbiology Microbiology Date/Time Source Procedure Growth Status 05/16/25 13:14 Urine - [place] Urine Culture - Final Complete 05/09/25 11:22 Blood Blood Culture - Final NO GROWTH AFTER 5 DAYS OF INCUBATION. Complete 05/02/25 20:30 Sputum Gram Stain - Final Complete 05/02/25 20:30 Sputum Respiratory Culture - Final Complete 05/02/25 00:00 Nose MRSA Screen - Final Complete 04/30/25 14:30 Pleural Fluid Gram Stain - Final Complete 04/30/25 14:30 Pleural Fluid Body Fluid Culture - Final Complete Labs and/or images reviewed: Labs reviewed by me, Image(s) reviewed by me Assessment/Plan Assessment/Plan Impression: -choledocholithiasis -acute pancreatitis -small-bowel obstruction -dementia -cachexia -sepsis -COPD -GERD -Post op delirium -Accelerated HTN -A. fib Plan: Events: Plan for possible sigmoidoscopy today. KUB with retained stool -continue Reglan -Continue TPN -Continue current abx -PPI -full-dose anticoagulation -continue bronchodilators, Mucomyst -repeat labs and chest x-ray in a.m. -daily CPAP trials for exercise, plans for extubation after bowel movement. -discussed case with the patient's family who were bedside. Critical care time spent with patient discussing and formulating plan of care: 40 minutes. This does not include time spent performing procedures. This medical document was created using an electronic medical record system with Weaved dictation system. Although this document has been carefully reviewed, there may still be some phonetic and typographical errors. These areas are purely typographical due to imperfections of the software programs, and do not reflect any compromise in the patient's medical care. Plan discussed with: Patient, Other (RN) My Orders Orders - JAYDEN HILL NP Procedure Category Date Status Time Potassium Chl PHA 05/19/25 Logged 20meq/100ml 12:30 Date of Service: May 19, 2025 Billing Provider: JAYDEN HILL NP Common Visit Codes: [id number] CARE 30-74 MIN JAYDEN HILL NP May 19, 2025 12:26
[2025-05-19] MEDS: MIDAZOLAM HCL 5 MG/ML-1ML VIAL IV ONE ×2 (13:28→13:32)
--- NOTE | 2025-05-19 14:10 | DVHOP2 ---
Operative Report DATE OF OPERATION: 05/19/25 PROCEDURE: Colonoscopy with biopsy. PREOPERATIVE INDICATION: The patient is a 89 -year-old female undergoing colonoscopy for suspected bowel obstruction and no bowel activity for two weeks POSTOPERATIVE DIAGNOSES: 1. Patient had mild sigmoid inflammatory changes with sigmoid spasm and tortuosity and superficial area of ulceration from which biopsies were obtained 2. 1+ internal hemorrhoids otherwise normal examination up to the hepatic flexure with moderate amount of liquid stool noted in the transverse colon and descending colon and colonic decompression was performed PROCEDURE PERFORMED BY: Jil Cui M.D. SCOPE: Olympus videocolonoscope. ASA CLASS:3 PREOPERATIVE MEDICATIONS: Versed 2 mg, patient presents fentanyl and Propofol drip PROCEDURE IN DETAIL: After obtaining an informed consent, the patient was placed on left lateral decubitus position. She was then sedated with the above medications. A rectal examination was performed that was normal. The colonoscope was then passed gently through the anus into the rectosigmoid and through the descending, transverse and transverse colon just beyond the hepatic flexure There was a large amount of thick liquid stool beyond this area. The colonoscope was then withdrawn [id number] amount of liquid stool was noted in the transverse colon and descending colon Patient did have sigmoid spasm tortuosity and suspected area of superficial inflammation and ulceration from which biopsies were obtained Patient had trace to 1+ internal hemorrhoids . The colonoscope was then withdrawn. The patient tolerated the procedure well without difficulty. WITHDRAWAL TIME: Not applicable QUALITY OF THE PREP: [place] Bowel Prep score: Not applicable ; unprepped bowel COMPLICATIONS : None SPECIMENS: Sigmoid colon biopsies DISPOSITION: Stable continue to monitor in ICU PLAN: 1. Continue conservative management for now 2. Patient is on IV antibiotics 3. Monitor bowel activity and use stool softeners 4. I will follow this patient with you as clinically indicated 5. Discussed with the ICU nurse and general surgical consult 6. Repeat KUB in maite. JIL CUI MD May 19, 2025 14:10
--- NOTE | 2025-05-19 14:11 | DVHPN2 ---
Progress Note Date Seen: May 19, 2025 Medical Necessity Reason Pt with a Central, PICC or Fol: Yes The following are medically ne: PICC Line, Grewal Catheter Objective vital signs Vital Sign Date Time Temp Pulse Resp B/P (MAP) Pulse Ox O2 Delivery O2 Flow Rate FiO2 05/19/25 12:06 74 22 120/78 (92) 96 30 05/19/25 06:00 Mechanical Ventilator+ 05/19/25 04:02 98.8 98.8 Total Intake and Output 05/18/25 05/18/25 05/19/25 15:00 23:00 07:00 Intake Total 894.488 ml 989.488 ml 947.904 ml Output Total 1070 ml 1210 ml Balance 894.488 ml -80.512 ml -262.096 ml medications Current Medications Medications Dose Ordered Sig/Gregory Route Start Time Stop Time Status Last Admin Dose Admin Pantoprazole Sodium 40 mg DAILY IV 04/16/25 10:00 05/19/25 09:24 40 MG Amino Acids 0 ml @ 0 mls/hr PER PHARMACY IV 04/18/25 17:45 Sodium Chloride 10 ml QSHIFT@10,22 IV 04/21/25 22:00 05/19/25 09:26 10 ML Albuterol 2.5 mg Q3HPRN PRN NEB 04/24/25 16:15 05/15/25 14:26 2.5 MG Nicardipine/ Sodium Chloride 200 ml @ 50 mls/hr Q4H IV 04/25/25 09:45 Diagnostic Test (Pha) 1 strip Q6HR 04/30/25 12:00 05/19/25 12:30 1 STRIP Insulin Human Regular FOLLOW SLIDING SCALE Q6HR SC 04/30/25 12:00 05/14/25 00:03 2 UNITS Dextrose 50 ml UD IV 04/30/25 09:00 05/09/25 00:20 50 ML Lidocaine 1 patch DAILY TOP 04/30/25 10:30 05/17/25 08:26 1 PATCH Morphine Sulfate 1 mg Q6HP PRN IV 04/30/25 10:30 05/02/25 17:58 1 MG Metoprolol Tartrate 2.5 mg Q4HR PRN IV 04/30/25 11:30 05/14/25 23:33 2.5 MG Propofol 100 ml @ 1.296 mls/ hr Q24H IV 05/02/25 20:45 05/18/25 18:53 7.776 MLS/HR Fentanyl Citrate 250 ml @ 2.5 mls/hr Q24H IV 05/02/25 20:45 05/17/25 19:28 2.5 MLS/HR Acetylcysteine 100 mg Q4HR NEB 05/05/25 10:00 UNV Enoxaparin Sodium 50 mg Q12HR SC 05/07/25 22:00 05/18/25 21:35 50 MG Vancomycin HCl 0 ml @ 0 mls/hr PER PHARMACY IV 05/09/25 10:30 Acetaminophen 650 mg Q6HP PRN [place] 05/09/25 10:30 Meropenem 50 ml @ 17 mls/hr Q12HR IV 05/09/25 14:00 05/19/25 09:25 17 MLS/HR Vancomycin HCl 250 ml @ 200 mls/hr Q12H IV 05/09/25 18:00 Cancel Dextrose/Sodium Chloride 1,000 ml @ 30 mls/hr Q24H IV 05/10/25 18:15 05/17/25 19:07 30 MLS/HR Levalbuterol HCl 0.625 mg Q8HR NEB 05/11/25 14:00 05/19/25 06:31 0.625 MG Ipratropium [place] 0.5 mg Q8HR NEB 05/11/25 14:00 05/19/25 06:31 0.5 MG Acetylcysteine 100 mg Q8HR NEB 05/11/25 14:00 05/19/25 06:31 100 MG Metoclopramide HCl 5 mg Q8H IV 05/11/25 18:00 05/19/25 09:24 5 MG Potassium Acetate 40 meq/Potassium Phosphate 35 meq/ Calcium Gluconate 6.975 meq/ Magnesium Sulfate 26 meq/ Multivitamins 10 ml/Chromium/ Copper/Manganese/ Zinc 1 ml/Amino Acids/Dextrose 1,160.4545 ml @ 48.6 mls/hr [id number] IV 05/14/25 22:00 05/15/25 21:59 Cancel Docusate Sodium 100 mg BID PO 05/15/25 10:00 05/19/25 09:24 100 MG Vancomycin HCl 100 ml @ 100 mls/hr Q12H IV 05/18/25 03:30 05/19/25 03:36 100 MLS/HR Sodium Phosphate 20 meq/Potassium Acetate 20 meq/ Calcium Gluconate 9.3 meq/Magnesium Sulfate 30 meq/ Multivitamins 10 ml/Chromium/ Copper/Manganese/ Zinc 1 ml/Amino Acids/Dextrose/ Purified Water 1,253.5 ml @ 52 mls/hr Q24H7M IV 05/18/25 22:00 05/19/25 21:59 05/18/25 21:38 52 MLS/HR Potassium Acetate 20 meq/Potassium Phosphate 35 meq/ Calcium Gluconate 9.3 meq/Magnesium Sulfate 32 meq/ Multivitamins 10 ml/Chromium/ Copper/Manganese/ Zinc 1 ml/Amino Acids/Dextrose/ Purified Water 1,256.9545 ml @ 52 mls/hr [id number] IV 05/19/25 22:00 05/20/25 21:59 laboratory and microbiology Laboratory Tests 05/19/25 03:50 Test 05/19/25 03:50 Range/Units Serum Glucose 106 74-106 mg/dL Microbiology Date/Time Source Procedure Growth Status 05/16/25 13:14 Urine - Grewal Port Urine Culture - Final Complete 05/09/25 11:22 Blood Blood Culture - Final NO GROWTH AFTER 5 DAYS OF INCUBATION. Complete 05/02/25 20:30 Sputum Gram Stain - Final Complete 05/02/25 20:30 Sputum Respiratory Culture - Final Complete 05/02/25 00:00 Nose MRSA Screen - Final Complete 04/30/25 14:30 Pleural Fluid Gram Stain - Final Complete 04/30/25 14:30 Pleural Fluid Body Fluid Culture - Final Complete Problem List/Assessment/Plan Problem List/Assessment/Plan AFEBRILE VSS REMAINS INTUBATED ABD SOFT NON DISTENDED NO BM GI EVAL ONGOING SIGMOIDOSCOPY NO ACUTE OBSTRUCTION POSSIBLE MUCOSAL EDEMA WITH SOME SPASM CONTINUE SUPPORTIVE CARE FAMILY AWARE OF PT CONDITION NURSE AT BEDSIDE ONGOING PULM EVAL CLAMP NG REPEAT KUB AM CONSIDER EMERGENT SURGERY BASED ON ONGOING EVAL Plan discussed with: Other Dietary Evaluation Review Recommendations by RD: PPN/TPN Comments: 1) Increase TPN to meet at least 75% estimated daily needs 2) Advance to cardiac diet when medically feasible 3) Follow-up with gastroenterology and neurology 4) Continue to monitor I&O, labs, and skin integrity Expected Outcomes/Goals: 1) nutrition support to meet at least 75% estimated daily needs 2) labs to improve 3) diet to advance 4) gradual wt gain 5) f/u in 2-3 days GLORIA MCNEAL MD May 19, 2025 14:11
[2025-05-19] MEDS ORDERED: VANCOMYCIN 1GM/250ML KIT 250 ML IV SCH (15:45)
[2025-05-19] MEDS: VANCOMYCIN 1GM/250ML KIT 250 ML IV SCH (16:49)
--- NOTE | 2025-05-19 17:58 | DVHPN2 ---
Progress Note - Dictate Date Seen: May 19, 2025 Medical Necessity Reason Pt with a Central, PICC or Fol: Yes The following are medically ne: PICC Line, Grewal Catheter vital signs Vital Sign Date Time Temp Pulse Resp B/P (MAP) Pulse Ox O2 Delivery O2 Flow Rate FiO2 05/19/25 17:30 60 22 107/46 (66) 98 05/19/25 17:00 98.2 98.2 05/19/25 16:14 30 05/19/25 16:00 Mechanical Ventilator+ Total Intake and Output 05/18/25 05/18/25 05/19/25 15:00 23:00 07:00 Intake Total 894.488 ml 989.488 ml 947.904 ml Output Total 1070 ml 1210 ml Balance 894.488 ml -80.512 ml -262.096 ml medications Current Medications Medications Dose Ordered Sig/Gregory Route Start Time Stop Time Status Last Admin Dose Admin Pantoprazole Sodium 40 mg DAILY IV 04/16/25 10:00 05/19/25 09:24 40 MG Amino Acids 0 ml @ 0 mls/hr PER PHARMACY IV 04/18/25 17:45 Sodium Chloride 10 ml QSHIFT@10,22 IV 04/21/25 22:00 05/19/25 09:26 10 ML Albuterol 2.5 mg Q3HPRN PRN NEB 04/24/25 16:15 05/15/25 14:26 2.5 MG Nicardipine/ Sodium Chloride 200 ml @ 50 mls/hr Q4H IV 04/25/25 09:45 Diagnostic Test (Pha) 1 strip Q6HR 04/30/25 12:00 05/19/25 16:50 1 STRIP Insulin Human Regular FOLLOW SLIDING SCALE Q6HR SC 04/30/25 12:00 05/14/25 00:03 2 UNITS Dextrose 50 ml UD IV 04/30/25 09:00 05/09/25 00:20 50 ML Lidocaine 1 patch DAILY TOP 04/30/25 10:30 05/17/25 08:26 1 PATCH Morphine Sulfate 1 mg Q6HP PRN IV 04/30/25 10:30 05/02/25 17:58 1 MG Metoprolol Tartrate 2.5 mg Q4HR PRN IV 04/30/25 11:30 05/14/25 23:33 2.5 MG Propofol 100 ml @ 1.296 mls/ hr Q24H IV 05/02/25 20:45 05/18/25 18:53 7.776 MLS/HR Fentanyl Citrate 250 ml @ 2.5 mls/hr Q24H IV 05/02/25 20:45 05/17/25 19:28 2.5 MLS/HR Acetylcysteine 100 mg Q4HR NEB 05/05/25 10:00 UNV Enoxaparin Sodium 50 mg Q12HR SC 05/07/25 22:00 05/18/25 21:35 50 MG Vancomycin HCl 0 ml @ 0 mls/hr PER PHARMACY IV 05/09/25 10:30 Acetaminophen 650 mg Q6HP PRN [place] 05/09/25 10:30 Meropenem 50 ml @ 17 mls/hr Q12HR IV 05/09/25 14:00 05/19/25 09:25 17 MLS/HR Vancomycin HCl 250 ml @ 200 mls/hr Q12H IV 05/09/25 18:00 Cancel Dextrose/Sodium Chloride 1,000 ml @ 30 mls/hr Q24H IV 05/10/25 18:15 05/17/25 19:07 30 MLS/HR Levalbuterol HCl 0.625 mg Q8HR NEB 05/11/25 14:00 05/19/25 14:31 0.625 MG Ipratropium [place] 0.5 mg Q8HR NEB 05/11/25 14:00 05/19/25 14:30 0.5 MG Acetylcysteine 100 mg Q8HR NEB 05/11/25 14:00 05/19/25 14:31 100 MG Metoclopramide HCl 5 mg Q8H IV 05/11/25 18:00 05/19/25 16:49 5 MG Potassium Acetate 40 meq/Potassium Phosphate 35 meq/ Calcium Gluconate 6.975 meq/ Magnesium Sulfate 26 meq/ Multivitamins 10 ml/Chromium/ Copper/Manganese/ Zinc 1 ml/Amino Acids/Dextrose 1,160.4545 ml @ 48.6 mls/hr [id number] IV 05/14/25 22:00 05/15/25 21:59 Cancel Docusate Sodium 100 mg BID PO 05/15/25 10:00 05/19/25 09:24 100 MG Sodium Phosphate 20 meq/Potassium Acetate 20 meq/ Calcium Gluconate 9.3 meq/Magnesium Sulfate 30 meq/ Multivitamins 10 ml/Chromium/ Copper/Manganese/ Zinc 1 ml/Amino Acids/Dextrose/ Purified Water 1,253.5 ml @ 52 mls/hr Q24H7M IV 05/18/25 22:00 05/19/25 21:59 05/18/25 21:38 52 MLS/HR Potassium Acetate 20 meq/Potassium Phosphate 35 meq/ Calcium Gluconate 9.3 meq/Magnesium Sulfate 32 meq/ Multivitamins 10 ml/Chromium/ Copper/Manganese/ Zinc 1 ml/Amino Acids/Dextrose/ Purified Water 1,256.9545 ml @ 52 mls/hr [id number] IV 05/19/25 22:00 05/20/25 21:59 Vancomycin HCl 250 ml @ 250 mls/hr Q8H IV 05/19/25 16:00 05/19/25 16:49 250 MLS/HR laboratory and microbiology Laboratory Tests 05/19/25 03:50 Test 05/19/25 03:50 Range/Units Serum Glucose 106 74-106 mg/dL Assessment/Plan Impression Acute hypoxemic respiratory failure Lung collapse Pneumonia Atelectasis SBO Patient seen and examined in ICU Events On mechanical ventilation S/p intubation PEEP 5, FiO2 30% S/p sigmoidoscopy No evidence of obstruction noted Labs and imaging reviewed ABG reviewed Management Vent support Titrate to maintain sats 90% or above Daily sedation holiday When patient is more awake, proceed to weaning trial Pressure support 7/5, extubate when ready Continue antibiotics F/u cultures Bronchodilators Monitor renal function Monitor electrolytes Supplement as needed Pressors as needed for hemodynamic support To maintain a mean arterial pressure of 65 mmHg F/u general surgery DVT prophylaxis Critical care time 35 minutes Dietary Evaluation Review Recommendations by RD: PPN/TPN Comments: 1) Increase TPN to meet at least 75% estimated daily needs 2) Advance to cardiac diet when medically feasible 3) Follow-up with gastroenterology and neurology 4) Continue to monitor I&O, labs, and skin integrity Expected Outcomes/Goals: 1) nutrition support to meet at least 75% estimated daily needs 2) labs to improve 3) diet to advance 4) gradual wt gain 5) f/u in 2-3 days Plan discussed with: Other (Rn) BRUNO GOLDMAN MD May 19, 2025 17:58
[2025-05-19] MEDS: TPN PER PHARMACY IV NR (21:48)
[2025-05-20] VITALS (101 sets, daily range): BP systolic 99–192; BP diastolic 42–81; PULSE 66–115; RESP 13–40; TEMP 98.2–100.2; O2SAT 28–100
[2025-05-20 04:35] LABS: Hematocrit 25.1 % (36.0-46.0); Hemoglobin 8.2 g/dL (12.2-16.2); Mean Corpuscular Hemoglobin 32.9 pg (28.0-32.0); Mean Corpuscular Volume 100.8 fL (80.0-100.0); Nucleated Red Blood Cells % 0.0 %
[2025-05-20 04:59] LABS: Alanine Aminotransferase 33 U/L (7-40); Albumin 2.5 g/dL (3.2-4.8); Alkaline Phosphatase 109 U/L (46-116); Anion Gap 10 (5-15); BUN/Creatinine Ratio 68.6 (10.0-20.0); Blood Urea Nitrogen 24 mg/dL (9-23); Calcium 7.3 mg/dL (8.7-10.4); Carbon Dioxide 26 mmol/L (20-31); Chloride 106 mmol/L (98-107); Glucose 102 mg/dL (74-106); Magnesium 2.0 mg/dL (1.6-2.6); Potassium 3.4 mmol/L (3.5-5.1); Sodium 142 mmol/L (136-145); Total Protein 4.7 g/dL (5.7-8.2); Triglycerides 44 mg/dL (< 150)
[2025-05-20 05:00] LABS: Bilirubin, Total 0.3 mg/dL (0.2-1.0)
[2025-05-20] MEDS: POTASSIUM CHL 20MEQ/100ML 100 ML IV ONE ×2 (06:25→12:31)
[2025-05-20 08:25] LABS: Base Excess 0.1 mmol/L (-2.0-3.0)
--- NOTE | 2025-05-20 09:17 | DVHPN2 ---
Subjective Intubated and following commands Reviewed: Care Plan, H&P, Labs, Medications Changes from previous H/P or p: No Changes General: Per HPI Objective Vitals Vital Signs Date Time Temp Pulse Resp B/P (MAP) Pulse Ox O2 Delivery O2 Flow Rate FiO2 05/20/25 08:45 76 19 128/51 (76) 98 30 05/20/25 06:00 Mechanical Ventilator+ 05/20/25 04:00 98.2 98.2 Intake/Output Intake and Output 05/20/25 06:59 Intake Total 1530.66 ml Output Total 1620 ml Balance -89.34 ml Intake Oral 60 ml IV Total 1470.66 ml Output Urine Total 1370 ml Gastric Drainage Total 250 ml General Appearance: Alert, mild distress, Other (Intubated and sedated) HEENT: Atraumatic, PERRLA, Other Lungs: Other (On vent. Transmitted breath sounds bilaterally. Decreased air entry bilaterally. No wheezing. Bibasilar crackles.) Cardiovascular: Normal S1, Normal S2, Other (Fibrillation with controlled rate) Abdomen: No tenderness, No hepatospenomegaly, Other (Hypoactive bowel sounds.) Genitourinary: No Apparent Abnormalities (Grewal catheter) Musculoskeletal: Normal sensory function, Normal motor function Extremities: No edema, Normal pulses, No tenderness/swelling Neuro: Cranial nerves 3-12 NL, Other Skin: Dry, Intact, Wounds, Other (Surgical wound D&I) Psych/Mental Status: Mood NL Medications Current Medications Medications Dose Ordered Sig/Gregory Route Start Time Stop Time Status Last Admin Dose Admin Pantoprazole Sodium 40 mg DAILY IV 04/16/25 10:00 05/19/25 09:24 40 MG Amino Acids 0 ml @ 0 mls/hr PER PHARMACY IV 04/18/25 17:45 Sodium Chloride 10 ml QSHIFT@10,22 IV 04/21/25 22:00 05/19/25 21:46 10 ML Albuterol 2.5 mg Q3HPRN PRN NEB 04/24/25 16:15 05/15/25 14:26 2.5 MG Nicardipine/ Sodium Chloride 200 ml @ 50 mls/hr Q4H IV 04/25/25 09:45 Diagnostic Test (Pha) 1 strip Q6HR 04/30/25 12:00 05/20/25 06:11 1 STRIP Insulin Human Regular FOLLOW SLIDING SCALE Q6HR SC 04/30/25 12:00 05/14/25 00:03 2 UNITS Dextrose 50 ml UD IV 04/30/25 09:00 05/09/25 00:20 50 ML Lidocaine 1 patch DAILY TOP 04/30/25 10:30 05/17/25 08:26 1 PATCH Morphine Sulfate 1 mg Q6HP PRN IV 04/30/25 10:30 05/02/25 17:58 1 MG Metoprolol Tartrate 2.5 mg Q4HR PRN IV 04/30/25 11:30 05/14/25 23:33 2.5 MG Propofol 100 ml @ 1.296 mls/ hr Q24H IV 05/02/25 20:45 05/18/25 18:53 7.776 MLS/HR Fentanyl Citrate 250 ml @ 2.5 mls/hr Q24H IV 05/02/25 20:45 05/19/25 21:05 5 MLS/HR Acetylcysteine 100 mg Q4HR NEB 05/05/25 10:00 UNV Enoxaparin Sodium 50 mg Q12HR SC 05/07/25 22:00 05/19/25 21:46 50 MG Vancomycin HCl 0 ml @ 0 mls/hr PER PHARMACY IV 05/09/25 10:30 Acetaminophen 650 mg Q6HP PRN [place] 05/09/25 10:30 Meropenem 50 ml @ 17 mls/hr Q12HR IV 05/09/25 14:00 05/19/25 21:47 17 MLS/HR Vancomycin HCl 250 ml @ 200 mls/hr Q12H IV 05/09/25 18:00 Cancel Dextrose/Sodium Chloride 1,000 ml @ 30 mls/hr Q24H IV 05/10/25 18:15 05/19/25 21:05 30 MLS/HR Levalbuterol HCl 0.625 mg Q8HR NEB 05/11/25 14:00 05/20/25 05:56 0.625 MG Ipratropium [place] 0.5 mg Q8HR NEB 05/11/25 14:00 05/20/25 05:56 0.5 MG Acetylcysteine 100 mg Q8HR NEB 05/11/25 14:00 05/20/25 05:56 100 MG Metoclopramide HCl 5 mg Q8H IV 05/11/25 18:00 05/20/25 02:00 5 MG Potassium Acetate 40 meq/Potassium Phosphate 35 meq/ Calcium Gluconate 6.975 meq/ Magnesium Sulfate 26 meq/ Multivitamins 10 ml/Chromium/ Copper/Manganese/ Zinc 1 ml/Amino Acids/Dextrose 1,160.4545 ml @ 48.6 mls/hr [id number] IV 05/14/25 22:00 05/15/25 21:59 Cancel Docusate Sodium 100 mg BID PO 05/15/25 10:00 05/19/25 21:46 100 MG Potassium Acetate 20 meq/Potassium Phosphate 35 meq/ Calcium Gluconate 9.3 meq/Magnesium Sulfate 32 meq/ Multivitamins 10 ml/Chromium/ Copper/Manganese/ Zinc 1 ml/Amino Acids/Dextrose/ Purified Water 1,256.9545 ml @ 52 mls/hr [id number] IV 05/19/25 22:00 05/20/25 21:59 05/19/25 21:48 52 MLS/HR Vancomycin HCl 250 ml @ 250 mls/hr Q8H IV 05/19/25 16:00 05/20/25 07:52 250 MLS/HR Laboratory Results Laboratory Tests 05/20/25 03:40 Chemistry Test 05/20/25 03:40 Albumin 2.5 g/dL (3.2-4.8) L Calcium Level 7.3 mg/dL (8.7-10.4) L Magnesium Level 2.0 mg/dL (1.6-2.6) Phosphorus Level 2.8 mg/dL (2.4-5.1) Total Protein 4.7 g/dL (5.7-8.2) L Lipid panel Test 05/20/25 03:40 Triglycerides Level 44 mg/dL (< 150) LFT Test 05/20/25 03:40 Alanine Aminotransferase (ALT) 33 U/L (7-40) Alkaline Phosphatase 109 U/L (46-116) Aspartate Amino Transferase (AST) 23 U/L (13-40) Total Bilirubin 0.3 mg/dL (0.2-1.0) Urinalysis Test 04/15/25 15:45 05/11/25 14:35 Urine Amorphous Crystals Few /hpf (None Seen) Urine Hyaline Casts Few /lpf (0 - 2) Urine Mucus Few (None Seen) Urine Color Light-yellow (Yellow) Urine Clarity Clear (Clear) Urine pH 7.0 (5.0-9.0) Urine Specific [place] 1.021 (1.001-1.035) Urine Protein Negative (Negative) Urine Ketones Negative (Negative) Urine Blood 1+ /uL (Negative) H Urine Nitrite Negative (Negative) Urine Bilirubin Negative (Negative) Urine Urobilinogen Normal mg/dL (Negative) Urine Leukocyte Esterase Negative /uL (Negative) Urine RBC 55 /hpf (0 - 4) Urine Microscopic WBC 1 /HPF (0-5) Urine Squamous Epithelial Cells Few /hpf (<5) Urine Bacteria None seen /hpf (None Seen) Urine Glucose Normal mg/dL (Normal) Blood Gas Results Test 05/20/25 07:34 Arterial Blood pH 7.449 (7.350-7.450) FiO2 % 30.0 Microbiology Microbiology Date/Time Source Procedure Growth Status 05/16/25 13:14 Urine - Grewal Port Urine Culture - Final Complete 05/09/25 11:22 Blood Blood Culture - Final NO GROWTH AFTER 5 DAYS OF INCUBATION. Complete 05/02/25 20:30 Sputum Gram Stain - Final Complete 05/02/25 20:30 Sputum Respiratory Culture - Final Complete 05/02/25 00:00 Nose MRSA Screen - Final Complete 04/30/25 14:30 Pleural Fluid Gram Stain - Final Complete 04/30/25 14:30 Pleural Fluid Body Fluid Culture - Final Complete Labs and/or images reviewed: Labs reviewed by me, Image(s) reviewed by me Assessment/Plan Assessment/Plan Impression: -choledocholithiasis -acute pancreatitis -small-bowel obstruction -dementia -cachexia -sepsis -COPD -GERD -Post op delirium -Accelerated HTN -A. fib Plan: Events: Discussed findings from sigmoidoscopy yesterday with Gastroenterology. Plans for spontaneous breathing trial today. Potassium replete. -continue Reglan -Continue TPN -Continue current abx -PPI -full-dose anticoagulation -continue bronchodilators, Mucomyst -repeat labs and chest x-ray in a.m. Critical care time spent with patient discussing and formulating plan of care: 40 minutes. This does not include time spent performing procedures. This medical document was created using an electronic medical record system with [employer] dictation system. Although this document has been carefully reviewed, there may still be some phonetic and typographical errors. These areas are purely typographical due to imperfections of the software programs, and do not reflect any compromise in the patient's medical care. Plan discussed with: Patient, Other (RN) My Orders Orders - JAYDEN HILL NP Procedure Category Date Status Time Cpap Trial For Am ORDERS 05/19/25 Transmitted 15:18 Cpap Trial For Am ORDERS 05/20/25 Transmitted 08:25 Cpap/Sed Vacation Med ORDERS 05/20/25 Transmitted Weaning 08:25 Potassium Chl PHA 05/20/25 Logged 20meq/100ml 09:15 Date of Service: May 20, 2025 Billing Provider: JAYDEN HILL NP Common Visit Codes: [id number] CARE 30-74 MIN JAYDEN HILL NP May 20, 2025 09:17
[2025-05-20 14:40] LABS: Base Excess -0.7 mmol/L (-2.0-3.0)
--- NOTE | 2025-05-20 14:45 | DVHPN2 ---
Progress Note - Dictate Date Seen: May 20, 2025 Medical Necessity Reason Pt with a Central, PICC or Fol: Yes The following are medically ne: PICC Line, Grewal Catheter vital signs Vital Sign Date Time Temp Pulse Resp B/P (MAP) Pulse Ox O2 Delivery O2 Flow Rate FiO2 05/20/25 13:50 102 32 96 50.0 40 05/20/25 13:04 Mask 05/20/25 10:40 137/56 (83) 05/20/25 04:00 98.2 98.2 Total Intake and Output 05/19/25 05/19/25 05/20/25 15:00 23:00 07:00 Intake Total 646 ml 250 ml 536 ml Output Total 700 ml 920 ml Balance 646 ml -450 ml -384 ml medications Current Medications Medications Dose Ordered Sig/Gregory Route Start Time Stop Time Status Last Admin Dose Admin Pantoprazole Sodium 40 mg DAILY IV 04/16/25 10:00 05/20/25 09:14 40 MG Amino Acids 0 ml @ 0 mls/hr PER PHARMACY IV 04/18/25 17:45 Sodium Chloride 10 ml QSHIFT@,22 IV 04/21/25 22:00 05/20/25 09:14 10 ML Albuterol 2.5 mg Q3HPRN PRN NEB 04/24/25 16:15 05/15/25 14:26 2.5 MG Nicardipine/ Sodium Chloride 200 ml @ 50 mls/hr Q4H IV 04/25/25 09:45 Diagnostic Test (Pha) 1 strip Q6HR 04/30/25 12:00 05/20/25 12:29 1 STRIP Insulin Human Regular FOLLOW SLIDING SCALE Q6HR SC 04/30/25 12:00 05/14/25 00:03 2 UNITS Dextrose 50 ml UD IV 04/30/25 09:00 05/09/25 00:20 50 ML Lidocaine 1 patch DAILY TOP 04/30/25 10:30 05/17/25 08:26 1 PATCH Morphine Sulfate 1 mg Q6HP PRN IV 04/30/25 10:30 05/02/25 17:58 1 MG Metoprolol Tartrate 2.5 mg Q4HR PRN IV 04/30/25 11:30 05/14/25 23:33 2.5 MG Propofol 100 ml @ 1.296 mls/ hr Q24H IV 05/02/25 20:45 05/18/25 18:53 7.776 MLS/HR Fentanyl Citrate 250 ml @ 2.5 mls/hr Q24H IV 05/02/25 20:45 05/19/25 21:05 5 MLS/HR Acetylcysteine 100 mg Q4HR NEB 05/05/25 10:00 UNV Enoxaparin Sodium 50 mg Q12HR SC 05/07/25 22:00 05/20/25 09:13 50 MG Vancomycin HCl 0 ml @ 0 mls/hr PER PHARMACY IV 05/09/25 10:30 Acetaminophen 650 mg Q6HP PRN [place] 05/09/25 10:30 Meropenem 50 ml @ 17 mls/hr Q12HR IV 05/09/25 14:00 05/20/25 09:13 17 MLS/HR Vancomycin HCl 250 ml @ 200 mls/hr Q12H IV 05/09/25 18:00 Cancel Dextrose/Sodium Chloride 1,000 ml @ 30 mls/hr Q24H IV 05/10/25 18:15 05/19/25 21:05 30 MLS/HR Levalbuterol HCl 0.625 mg Q8HR NEB 05/11/25 14:00 05/20/25 13:04 0.625 MG Ipratropium [place] 0.5 mg Q8HR NEB 05/11/25 14:00 05/20/25 13:04 0.5 MG Acetylcysteine 100 mg Q8HR NEB 05/11/25 14:00 05/20/25 13:04 100 MG Metoclopramide HCl 5 mg Q8H IV 05/11/25 18:00 05/20/25 09:14 5 MG Potassium Acetate 40 meq/Potassium Phosphate 35 meq/ Calcium Gluconate 6.975 meq/ Magnesium Sulfate 26 meq/ Multivitamins 10 ml/Chromium/ Copper/Manganese/ Zinc 1 ml/Amino Acids/Dextrose 1,160.4545 ml @ 48.6 mls/hr [id number] IV 05/14/25 22:00 05/15/25 21:59 Cancel Docusate Sodium 100 mg BID PO 05/15/25 10:00 05/20/25 09:13 100 MG Potassium Acetate 20 meq/Potassium Phosphate 35 meq/ Calcium Gluconate 9.3 meq/Magnesium Sulfate 32 meq/ Multivitamins 10 ml/Chromium/ Copper/Manganese/ Zinc 1 ml/Amino Acids/Dextrose/ Purified Water 1,256.9545 ml @ 52 mls/hr [id number] IV 05/19/25 22:00 05/20/25 21:59 05/19/25 21:48 52 MLS/HR Vancomycin HCl 250 ml @ 250 mls/hr Q8H IV 05/19/25 16:00 05/20/25 07:52 250 MLS/HR Fat Emulsion Intravenous 50 ml/ Potassium Acetate 20 meq/Potassium Phosphate 30 meq/ Calcium Gluconate 9.3 meq/Magnesium Sulfate 32 meq/ Multivitamins 10 ml/Chromium/ Copper/Manganese/ Zinc 1 ml/Amino Acids/Dextrose/ Purified Water 1,305.8182 ml @ 54 mls/hr [id number] IV 05/20/25 22:00 05/21/25 21:59 laboratory and microbiology Laboratory Tests 05/20/25 03:40 Test 05/20/25 03:40 Range/Units Serum Glucose 102 74-106 mg/dL Assessment/Plan Impression Acute hypoxemic respiratory failure Lung collapse Pneumonia Atelectasis SBO Patient seen and examined in ICU Events Patient was successfully weaned from mechanical ventilation S/p extubation, transitioned to cool aerosol mask S/p sigmoidoscopy No evidence of obstruction noted Labs and imaging reviewed ABG reviewed Management Supplemental oxygen Titrate to maintain sats 90% or above Incentive spirometry Aspiration precautions Advance diet as tolerated Continue antibiotics F/u cultures Bronchodilators Monitor renal function Monitor electrolytes Supplement as needed F/u general surgery DVT prophylaxis Critical care time 35 minutes Dietary Evaluation Review Recommendations by RD: PPN/TPN Comments: 1) Increase TPN to meet at least 75% estimated daily needs 2) Advance to cardiac diet when medically feasible 3) Follow-up with gastroenterology and neurology 4) Continue to monitor I&O, labs, and skin integrity Expected Outcomes/Goals: 1) nutrition support to meet at least 75% estimated daily needs 2) labs to improve 3) diet to advance 4) gradual wt gain 5) f/u in 2-3 days Plan discussed with: Patient BRUNO GOLDMAN MD May 20, 2025 14:45
--- NOTE | 2025-05-20 15:07 | DVHPN2 ---
Progress Note - Dictate Date Seen: May 20, 2025 Medical Necessity Reason Pt with a Central, PICC or Fol: Yes The following are medically ne: PICC Line, Grewal Catheter Subjective Patient was extubated today and is on high-flow oxygen 40% FiO2 Patient is still has not had any bowel activity NG tube output was about 350 mL when she was connected to suction Sigmoidoscopy/colonoscopy showed sigmoid spasm and tortuosity and some sigmoiditis and inflammation However there was no obstruction and I was able to pass the colonoscope up to the hepatic flexure with some residual stool in the ascending cecum and transverse colon vital signs Vital Sign Date Time Temp Pulse Resp B/P (MAP) Pulse Ox O2 Delivery O2 Flow Rate FiO2 05/20/25 13:50 102 32 96 50.0 40 05/20/25 13:04 Mask 05/20/25 10:40 137/56 (83) 05/20/25 04:00 98.2 98.2 Total Intake and Output 05/19/25 05/19/25 05/20/25 15:00 23:00 07:00 Intake Total 646 ml 250 ml 536 ml Output Total 700 ml 920 ml Balance 646 ml -450 ml -384 ml medications Current Medications Medications Dose Ordered Sig/Gregory Route Start Time Stop Time Status Last Admin Dose Admin Pantoprazole Sodium 40 mg DAILY IV 04/16/25 10:00 05/20/25 09:14 40 MG Amino Acids 0 ml @ 0 mls/hr PER PHARMACY IV 04/18/25 17:45 Sodium Chloride 10 ml QSHIFT@10,22 IV 04/21/25 22:00 05/20/25 09:14 10 ML Albuterol 2.5 mg Q3HPRN PRN NEB 04/24/25 16:15 05/15/25 14:26 2.5 MG Nicardipine/ Sodium Chloride 200 ml @ 50 mls/hr Q4H IV 04/25/25 09:45 Diagnostic Test (Pha) 1 strip Q6HR 04/30/25 12:00 05/20/25 12:29 1 STRIP Insulin Human Regular FOLLOW SLIDING SCALE Q6HR SC 04/30/25 12:00 05/14/25 00:03 2 UNITS Dextrose 50 ml UD IV 04/30/25 09:00 05/09/25 00:20 50 ML Lidocaine 1 patch DAILY TOP 04/30/25 10:30 05/17/25 08:26 1 PATCH Morphine Sulfate 1 mg Q6HP PRN IV 04/30/25 10:30 05/02/25 17:58 1 MG Metoprolol Tartrate 2.5 mg Q4HR PRN IV 04/30/25 11:30 05/14/25 23:33 2.5 MG Propofol 100 ml @ 1.296 mls/ hr Q24H IV 05/02/25 20:45 05/18/25 18:53 7.776 MLS/HR Fentanyl Citrate 250 ml @ 2.5 mls/hr Q24H IV 05/02/25 20:45 05/19/25 21:05 5 MLS/HR Acetylcysteine 100 mg Q4HR NEB 05/05/25 10:00 UNV Enoxaparin Sodium 50 mg Q12HR SC 05/07/25 22:00 05/20/25 09:13 50 MG Vancomycin HCl 0 ml @ 0 mls/hr PER PHARMACY IV 05/09/25 10:30 Acetaminophen 650 mg Q6HP PRN MT 05/09/25 10:30 Meropenem 50 ml @ 17 mls/hr Q12HR IV 05/09/25 14:00 05/20/25 09:13 17 MLS/HR Vancomycin HCl 250 ml @ 200 mls/hr Q12H IV 05/09/25 18:00 Cancel Dextrose/Sodium Chloride 1,000 ml @ 30 mls/hr Q24H IV 05/10/25 18:15 05/19/25 21:05 30 MLS/HR Levalbuterol HCl 0.625 mg Q8HR NEB 05/11/25 14:00 05/20/25 13:04 0.625 MG Ipratropium [place] 0.5 mg Q8HR NEB 05/11/25 14:00 05/20/25 13:04 0.5 MG Acetylcysteine 100 mg Q8HR NEB 05/11/25 14:00 05/20/25 13:04 100 MG Metoclopramide HCl 5 mg Q8H IV 05/11/25 18:00 05/20/25 09:14 5 MG Potassium Acetate 40 meq/Potassium Phosphate 35 meq/ Calcium Gluconate 6.975 meq/ Magnesium Sulfate 26 meq/ Multivitamins 10 ml/Chromium/ Copper/Manganese/ Zinc 1 ml/Amino Acids/Dextrose 1,160.4545 ml @ 48.6 mls/hr [id number] IV 05/14/25 22:00 05/15/25 21:59 Cancel Docusate Sodium 100 mg BID PO 05/15/25 10:00 05/20/25 09:13 100 MG Potassium Acetate 20 meq/Potassium Phosphate 35 meq/ Calcium Gluconate 9.3 meq/Magnesium Sulfate 32 meq/ Multivitamins 10 ml/Chromium/ Copper/Manganese/ Zinc 1 ml/Amino Acids/Dextrose/ Purified Water 1,256.9545 ml @ 52 mls/hr [id number] IV 05/19/25 22:00 05/20/25 21:59 05/19/25 21:48 52 MLS/HR Vancomycin HCl 250 ml @ 250 mls/hr Q8H IV 05/19/25 16:00 05/20/25 07:52 250 MLS/HR Fat Emulsion Intravenous 50 ml/ Potassium Acetate 20 meq/Potassium Phosphate 30 meq/ Calcium Gluconate 9.3 meq/Magnesium Sulfate 32 meq/ Multivitamins 10 ml/Chromium/ Copper/Manganese/ Zinc 1 ml/Amino Acids/Dextrose/ Purified Water 1,305.8182 ml @ 54 mls/hr [id number] IV 05/20/25 22:00 05/21/25 21:59 objective General Appearance: Extubated on high-flow oxygen HEENT: PERRLA, EOMI Lungs: Decreased breath sound on left lower lung. High-flow at 50% FiO2 Cardiovascular: Normal S1, Normal S2 Abdomen: No tenderness, No hepatospenomegaly, hypoactive bowel sounds, surgical wound dry Genitourinary: No Apparent Abnormalities (Grewal catheter) Musculoskeletal: Normal sensory function, Normal motor function Extremities: No edema, Normal pulses, No tenderness/swelling laboratory and microbiology Laboratory Tests 05/20/25 03:40 Test 05/20/25 03:40 Range/Units Serum Glucose 102 74-106 mg/dL Problems(with codes): (1) Ileus (2) Choledocholithiasis (3) Acute respiratory distress (4) Small bowel obstruction Prognosis Plan Continue supportive care Continue TPN I will increase her Reglan to 5 mg IV q.6 hours Continue IV PPI I will monitor patient with you Dietary Evaluation Review Recommendations by RD: PPN/TPN Comments: 1) Increase TPN to meet at least 75% estimated daily needs 2) Advance to cardiac diet when medically feasible 3) Follow-up with gastroenterology and neurology 4) Continue to monitor I&O, labs, and skin integrity Expected Outcomes/Goals: 1) nutrition support to meet at least 75% estimated daily needs 2) labs to improve 3) diet to advance 4) gradual wt gain 5) f/u in 2-3 days Plan discussed with: Patient, Other (ICU Nurse) JIL MCNEAL MD May 20, 2025 15:07
[2025-05-20 15:27] LABS: Base Excess -1.3 mmol/L (-2.0-3.0)
[2025-05-20] MEDS: GLYCOPYRROLATE 0.2 MG/ML 1ML VIAL IV ONE (16:13)
[2025-05-20] MEDS: METOCLOPRAMIDE HCL 5MG/ml INJ 2ml VIAL IV SCH (18:49)
--- NOTE | 2025-05-20 20:04 | DVH ---
CHEST RADIOGRAPH Indication: shortness of breath Technique: Single frontal view of the chest was obtained Comparison: XY CHEST PORTABLE on DOS: 05/19/25, XY CHEST PORTABLE on DOS: 05/17/25, XY CHEST XRAY 1 VIEW on DOS: 05/16/25 FINDINGS: Lines and Tubes: Enteric tube noted below the left diaphragm in the stomach. PICC line from right arm in place with the tip in the superior vena cava above the right atrium or at the cavoatrial junction. Lungs: Possible bilateral perihilar airspace disease. Pleura: No effusion. No pneumothorax. Cardiomediastinal contours: Unremarkable Bones: No acute osseous abnormality. IMPRESSION: 1. Noted below the left diaphragm. 2. Elevation of the left diaphragm. 3. PICC line from the right arm in the superior vena cava or cavoatrial junction. 4. Bibasilar airspace disease or atelectasis.
[2025-05-20] MEDS: TPN PER PHARMACY IV NR (21:59)
[2025-05-21] VITALS (54 sets, daily range): BP systolic 128–169; BP diastolic 49–122; PULSE 64–105; RESP 15–39; TEMP 98.4–99.1; O2SAT 87–100
[2025-05-21 04:18] LABS: Hematocrit 28.1 % (36.0-46.0); Hemoglobin 9.3 g/dL (12.2-16.2); Mean Corpuscular Hemoglobin 33.2 pg (28.0-32.0); Mean Corpuscular Volume 100.5 fL (80.0-100.0); Nucleated Red Blood Cells % 0.1 %
[2025-05-21 04:19] LABS: Alanine Aminotransferase 27 U/L (7-40); Alkaline Phosphatase 105 U/L (46-116); Anion Gap 9 (5-15); BUN/Creatinine Ratio 59.4 (10.0-20.0); Bilirubin, Total 0.4 mg/dL (0.2-1.0); Blood Urea Nitrogen 19 mg/dL (9-23); Carbon Dioxide 27 mmol/L (20-31); Magnesium 2.0 mg/dL (1.6-2.6); Total Protein 5.7 g/dL (5.7-8.2)
[2025-05-21 04:20] LABS: Albumin 3.0 g/dL (3.2-4.8); Calcium 7.8 mg/dL (8.7-10.4); Chloride 110 mmol/L (98-107); Glucose 133 mg/dL (74-106); Potassium 3.5 mmol/L (3.5-5.1); Sodium 146 mmol/L (136-145)
--- NOTE | 2025-05-21 08:50 | DVHPN2 ---
Progress Note - Dictate Date Seen: May 21, 2025 Medical Necessity Reason Pt with a Central, PICC or Fol: Yes The following are medically ne: PICC Line, Grewal Catheter vital signs Vital Sign Date Time Temp Pulse Resp B/P (MAP) Pulse Ox O2 Delivery O2 Flow Rate FiO2 05/21/25 06:33 98 28 97 65.0 60 05/21/25 06:30 141/59 (86) 05/21/25 06:00 Hi-Flow Heated NC+ 05/21/25 04:00 98.9 98.9 Total Intake and Output 05/20/25 05/20/25 05/21/25 15:00 23:00 07:00 Intake Total 240 ml 422 ml 604 ml Output Total 2000 ml 1010 ml Balance 240 ml -1578 ml -406 ml medications Current Medications Medications Dose Ordered Sig/Gregory Route Start Time Stop Time Status Last Admin Dose Admin Pantoprazole Sodium 40 mg DAILY IV 04/16/25 10:00 05/20/25 09:14 40 MG Amino Acids 0 ml @ 0 mls/hr PER PHARMACY IV 04/18/25 17:45 Sodium Chloride 10 ml QSHIFT@10,22 IV 04/21/25 22:00 05/20/25 21:56 10 ML Albuterol 2.5 mg Q3HPRN PRN NEB 04/24/25 16:15 05/15/25 14:26 2.5 MG Nicardipine/ Sodium Chloride 200 ml @ 50 mls/hr Q4H IV 04/25/25 09:45 Diagnostic Test (Pha) 1 strip Q6HR 04/30/25 12:00 05/21/25 05:51 1 STRIP Insulin Human Regular FOLLOW SLIDING SCALE Q6HR SC 04/30/25 12:00 05/14/25 00:03 2 UNITS Dextrose 50 ml UD IV 04/30/25 09:00 05/09/25 00:20 50 ML Lidocaine 1 patch DAILY TOP 04/30/25 10:30 05/17/25 08:26 1 PATCH Morphine Sulfate 1 mg Q6HP PRN IV 04/30/25 10:30 05/02/25 17:58 1 MG Metoprolol Tartrate 2.5 mg Q4HR PRN IV 04/30/25 11:30 05/14/25 23:33 2.5 MG Propofol 100 ml @ 1.296 mls/ hr Q24H IV 05/02/25 20:45 05/18/25 18:53 7.776 MLS/HR Fentanyl Citrate 250 ml @ 2.5 mls/hr Q24H IV 05/02/25 20:45 05/19/25 21:05 5 MLS/HR Acetylcysteine 100 mg Q4HR NEB 05/05/25 10:00 UNV Enoxaparin Sodium 50 mg Q12HR SC 05/07/25 22:00 05/20/25 21:56 50 MG Vancomycin HCl 0 ml @ 0 mls/hr PER PHARMACY IV 05/09/25 10:30 Acetaminophen 650 mg Q6HP PRN [place] 05/09/25 10:30 Meropenem 50 ml @ 17 mls/hr Q12HR IV 05/09/25 14:00 05/20/25 21:56 17 MLS/HR Vancomycin HCl 250 ml @ 200 mls/hr Q12H IV 05/09/25 18:00 Cancel Dextrose/Sodium Chloride 1,000 ml @ 30 mls/hr Q24H IV 05/10/25 18:15 05/19/25 21:05 30 MLS/HR Levalbuterol HCl 0.625 mg Q8HR NEB 05/11/25 14:00 05/21/25 06:28 0.625 MG Ipratropium [place] 0.5 mg Q8HR NEB 05/11/25 14:00 05/21/25 06:28 0.5 MG Acetylcysteine 100 mg Q8HR NEB 05/11/25 14:00 05/21/25 06:28 100 MG Potassium Acetate 40 meq/Potassium Phosphate 35 meq/ Calcium Gluconate 6.975 meq/ Magnesium Sulfate 26 meq/ Multivitamins 10 ml/Chromium/ Copper/Manganese/ Zinc 1 ml/Amino Acids/Dextrose 1,160.4545 ml @ 48.6 mls/hr [id number] IV 05/14/25 22:00 05/15/25 21:59 Cancel Docusate Sodium 100 mg BID PO 05/15/25 10:00 05/20/25 09:13 100 MG Fat Emulsion Intravenous 50 ml/ Potassium Acetate 20 meq/Potassium Phosphate 30 meq/ Calcium Gluconate 9.3 meq/Magnesium Sulfate 32 meq/ Multivitamins 10 ml/Chromium/ Copper/Manganese/ Zinc 1 ml/Amino Acids/Dextrose/ Purified Water 1,305.8182 ml @ 54 mls/hr [id number] IV 05/20/25 22:00 05/21/25 21:59 05/20/25 21:59 54 MLS/HR Metoclopramide HCl 5 mg Q6HR IV 05/20/25 18:00 05/21/25 05:50 5 MG laboratory and microbiology Laboratory Tests 05/21/25 03:22 Test 05/21/25 03:22 Range/Units Serum Glucose 133 H 74-106 mg/dL Assessment/Plan Impression Acute hypoxemic respiratory failure Lung collapse Pneumonia Atelectasis SBO Patient seen and examined in ICU Events s/p extubation no bowel movement yet on HFO AAOx4 S/p sigmoidoscopy No evidence of obstruction noted Labs and imaging reviewed ABG reviewed Management Supplemental oxygen Titrate to maintain sats 90% or above Incentive spirometry Aspiration precautions Advance diet as tolerated Continue antibiotics F/u cultures Bronchodilators Monitor renal function Monitor electrolytes Supplement as needed F/u general surgery DVT prophylaxis Critical care time 35 minutes Dietary Evaluation Review Recommendations by RD: PPN/TPN Comments: 1) Increase TPN to meet at least 75% estimated daily needs 2) Advance to cardiac diet when medically feasible 3) Follow-up with gastroenterology and neurology 4) Continue to monitor I&O, labs, and skin integrity Expected Outcomes/Goals: 1) nutrition support to meet at least 75% estimated daily needs 2) labs to improve 3) diet to advance 4) gradual wt gain 5) f/u in 2-3 days Plan discussed with: Other (rn) BRUNO GOLDMAN MD May 21, 2025 08:50
--- NOTE | 2025-05-21 08:59 | DVHPN2 ---
Subjective Intubated and following commands Reviewed: Care Plan, H&P, Labs, Medications Changes from previous H/P or p: Changes General: Per HPI Objective Vitals Vital Signs Date Time Temp Pulse Resp B/P (MAP) Pulse Ox O2 Delivery O2 Flow Rate FiO2 05/21/25 06:33 98 28 97 65.0 60 05/21/25 06:30 141/59 (86) 05/21/25 06:00 Hi-Flow Heated NC+ 05/21/25 04:00 98.9 98.9 Intake/Output Intake and Output 05/21/25 06:59 Intake Total 1296 ml Output Total 3010 ml Balance -1714 ml Intake Oral 40 ml IV Total 1256 ml Output Urine Total 2660 ml Gastric Drainage Total 350 ml General Appearance: Alert, mild distress HEENT: Atraumatic, PERRLA, Other Lungs: Clear to auscultation, Normal air movement, Other (Patient on high-flow nasal cannula) Cardiovascular: Normal S1, Normal S2, Other (Fibrillation with controlled rate) Abdomen: No tenderness, No hepatospenomegaly, Other (Hypoactive bowel sounds.) Genitourinary: No Apparent Abnormalities (Grewal catheter) Musculoskeletal: Normal sensory function, Normal motor function Extremities: No edema, Normal pulses, No tenderness/swelling Neuro: Cranial nerves 3-12 NL, Other Skin: Dry, Intact, Wounds, Other (Surgical wound D&I) Psych/Mental Status: Mood NL Medications Current Medications Medications Dose Ordered Sig/Gregory Route Start Time Stop Time Status Last Admin Dose Admin Pantoprazole Sodium 40 mg DAILY IV 04/16/25 10:00 05/20/25 09:14 40 MG Amino Acids 0 ml @ 0 mls/hr PER PHARMACY IV 04/18/25 17:45 Sodium Chloride 10 ml QSHIFT@10,22 IV 04/21/25 22:00 05/20/25 21:56 10 ML Albuterol 2.5 mg Q3HPRN PRN NEB 04/24/25 16:15 05/15/25 14:26 2.5 MG Nicardipine/ Sodium Chloride 200 ml @ 50 mls/hr Q4H IV 04/25/25 09:45 Diagnostic Test (Pha) 1 strip Q6HR 04/30/25 12:00 05/21/25 05:51 1 STRIP Insulin Human Regular FOLLOW SLIDING SCALE Q6HR SC 04/30/25 12:00 05/14/25 00:03 2 UNITS Dextrose 50 ml UD IV 04/30/25 09:00 05/09/25 00:20 50 ML Lidocaine 1 patch DAILY TOP 04/30/25 10:30 05/17/25 08:26 1 PATCH Morphine Sulfate 1 mg Q6HP PRN IV 04/30/25 10:30 05/02/25 17:58 1 MG Metoprolol Tartrate 2.5 mg Q4HR PRN IV 04/30/25 11:30 05/14/25 23:33 2.5 MG Propofol 100 ml @ 1.296 mls/ hr Q24H IV 05/02/25 20:45 05/18/25 18:53 7.776 MLS/HR Fentanyl Citrate 250 ml @ 2.5 mls/hr Q24H IV 05/02/25 20:45 05/19/25 21:05 5 MLS/HR Acetylcysteine 100 mg Q4HR NEB 05/05/25 10:00 UNV Enoxaparin Sodium 50 mg Q12HR SC 05/07/25 22:00 05/20/25 21:56 50 MG Vancomycin HCl 0 ml @ 0 mls/hr PER PHARMACY IV 05/09/25 10:30 Acetaminophen 650 mg Q6HP PRN [place] 05/09/25 10:30 Meropenem 50 ml @ 17 mls/hr Q12HR IV 05/09/25 14:00 05/20/25 21:56 17 MLS/HR Vancomycin HCl 250 ml @ 200 mls/hr Q12H IV 05/09/25 18:00 Cancel Dextrose/Sodium Chloride 1,000 ml @ 30 mls/hr Q24H IV 05/10/25 18:15 05/19/25 21:05 30 MLS/HR Levalbuterol HCl 0.625 mg Q8HR NEB 05/11/25 14:00 05/21/25 06:28 0.625 MG Ipratropium [place] 0.5 mg Q8HR NEB 05/11/25 14:00 05/21/25 06:28 0.5 MG Acetylcysteine 100 mg Q8HR NEB 05/11/25 14:00 05/21/25 06:28 100 MG Potassium Acetate 40 meq/Potassium Phosphate 35 meq/ Calcium Gluconate 6.975 meq/ Magnesium Sulfate 26 meq/ Multivitamins 10 ml/Chromium/ Copper/Manganese/ Zinc 1 ml/Amino Acids/Dextrose 1,160.4545 ml @ 48.6 mls/hr [id number] IV 05/14/25 22:00 05/15/25 21:59 Cancel Docusate Sodium 100 mg BID PO 05/15/25 10:00 05/20/25 09:13 100 MG Fat Emulsion Intravenous 50 ml/ Potassium Acetate 20 meq/Potassium Phosphate 30 meq/ Calcium Gluconate 9.3 meq/Magnesium Sulfate 32 meq/ Multivitamins 10 ml/Chromium/ Copper/Manganese/ Zinc 1 ml/Amino Acids/Dextrose/ Purified Water 1,305.8182 ml @ 54 mls/hr [id number] IV 05/20/25 22:00 05/21/25 21:59 05/20/25 21:59 54 MLS/HR Metoclopramide HCl 5 mg Q6HR IV 05/20/25 18:00 05/21/25 05:50 5 MG Laboratory Results Laboratory Tests 05/21/25 03:22 Chemistry Test 05/21/25 03:22 Albumin 3.0 g/dL (3.2-4.8) L Calcium Level 7.8 mg/dL (8.7-10.4) L Magnesium Level 2.0 mg/dL (1.6-2.6) Phosphorus Level 2.3 mg/dL (2.4-5.1) L Total Protein 5.7 g/dL (5.7-8.2) LFT Test 05/21/25 03:22 Alanine Aminotransferase (ALT) 27 U/L (7-40) Alkaline Phosphatase 105 U/L (46-116) Aspartate Amino Transferase (AST) 23 U/L (13-40) Total Bilirubin 0.4 mg/dL (0.2-1.0) Urinalysis Test 04/15/25 15:45 05/11/25 14:35 Urine Amorphous Crystals Few /hpf (None Seen) Urine Hyaline Casts Few /lpf (0 - 2) Urine Mucus Few (None Seen) Urine Color Light-yellow (Yellow) Urine Clarity Clear (Clear) Urine pH 7.0 (5.0-9.0) Urine Specific [place] 1.021 (1.001-1.035) Urine Protein Negative (Negative) Urine Ketones Negative (Negative) Urine Blood 1+ /uL (Negative) H Urine Nitrite Negative (Negative) Urine Bilirubin Negative (Negative) Urine Urobilinogen Normal mg/dL (Negative) Urine Leukocyte Esterase Negative /uL (Negative) Urine RBC 55 /hpf (0 - 4) Urine Microscopic WBC 1 /HPF (0-5) Urine Squamous Epithelial Cells Few /hpf (<5) Urine Bacteria None seen /hpf (None Seen) Urine Glucose Normal mg/dL (Normal) Blood Gas Results Test 05/20/25 10:06 05/20/25 15:16 Arterial Blood pH 7.448 (7.350-7.450) 7.434 (7.350-7.450) FiO2 % 30.0 40.0 Microbiology Microbiology Date/Time Source Procedure Growth Status 05/16/25 13:14 Urine - Grewal Port Urine Culture - Final Complete 05/09/25 11:22 Blood Blood Culture - Final NO GROWTH AFTER 5 DAYS OF INCUBATION. Complete 05/02/25 20:30 Sputum Gram Stain - Final Complete 05/02/25 20:30 Sputum Respiratory Culture - Final Complete 05/02/25 00:00 Nose MRSA Screen - Final Complete 04/30/25 14:30 Pleural Fluid Gram Stain - Final Complete 04/30/25 14:30 Pleural Fluid Body Fluid Culture - Final Complete Labs and/or images reviewed: Labs reviewed by me, Image(s) reviewed by me Assessment/Plan Assessment/Plan Impression: -choledocholithiasis -acute pancreatitis -small-bowel obstruction -dementia -cachexia -sepsis -COPD -GERD -Post op delirium -Accelerated HTN -A. fib Plan: Events: Patient extubated yesterday. Had respiratory distress, resolved with patient being placed on high-flow. Chest x-ray reveals gastric distention. Patient pulled out NG tube overnight. New NG tube has been placed , with suctioning to be placed on intermittent. -continue Reglan, add lactulose via NG tube -Continue TPN, IV fluid -Continue current abx -PPI -full-dose anticoagulation -continue bronchodilators, Mucomyst -repeat labs and chest x-ray in a.m. Critical care time spent with patient discussing and formulating plan of care: 40 minutes. This does not include time spent performing procedures. This medical document was created using an electronic medical record system with [employer] dictation system. Although this document has been carefully reviewed, there may still be some phonetic and typographical errors. These areas are purely typographical due to imperfections of the software programs, and do not reflect any compromise in the patient's medical care. Plan discussed with: Patient, Other (RN) My Orders Orders - JAYDEN HILL NP Procedure Category Date Status Time Extubate SAGE 05/20/25 In Process 10:15 Abg W/ Co-Ox RT 05/20/25 Logged 10:00 Oxygen By High-Flow RT 05/20/25 Transmitted 13:47 Abg W/ Co-Ox RT 05/20/25 Logged 14:50 Nasal Tracheal Suction RT 05/20/25 Logged 13:50 Chest Portable XY 05/20/25 Resulted 16:59 Cleanse Wound With SAGE 05/20/25 In Process Wound Clean 11:38 Ng To Lis SAGE 05/21/25 In Process 08:18 Chest Portable XY 05/21/25 Taken 08:33 Lactulose Oral PHA 05/21/25 Transmitted 10:00 Ceftriaxone Ivpb PHA 05/21/25 Transmitted Rocephin 09:00 Complete Blood Count LAB 05/22/25 Verified 04:00 Date of Service: May 21, 2025 Billing Provider: JAYDEN HILL NP Common Visit Codes: [id number] CARE 30-74 MIN JAYDEN HILL NP May 21, 2025 08:59
--- NOTE | 2025-05-21 09:18 | DVH ---
CHEST RADIOGRAPH Indication: ngt placement Technique: Single frontal view of the chest was obtained COMPARISON: XY CHEST PORTABLE on DOS: 05/20/25, XY CHEST PORTABLE on DOS: 05/19/25, XY CHEST PORTABLE on DOS: 05/17/25, XY CHEST XRAY 1 VIEW on DOS: 05/16/25, XY CHEST PORTABLE on DOS: 05/15/25 FINDINGS: Lines and Tubes: Enteric catheter in satisfactory position. Right PICC in satisfactory position. Lungs: Clear Pleura: Small bilateral pleural effusions. No pneumothorax. Cardiomediastinal contours: Unremarkable Bones: Unremarkable IMPRESSION: Enteric catheter in satisfactory position.
[2025-05-21] MEDS: POTASSIUM PHOSPHATE 22 MEQ in SODIUM CHL 0.9% 100 ML IV ONE (09:45)
[2025-05-21] MEDS: LACTULOSE 20Gm/30ML SOLN NG SCH (09:57)
--- NOTE | 2025-05-21 17:24 | DVHPN2 ---
Progress Note - Dictate Date Seen: May 21, 2025 Medical Necessity Reason Pt with a Central, PICC or Fol: Yes The following are medically ne: PICC Line, Grewal Catheter Subjective Patient is on high-flow oxygen 65% FiO2 Patient had a large liquid bowel movement She pulled out NG tube accidentally which was replaced Sigmoidoscopy/colonoscopy showed sigmoid spasm and tortuosity and some sigmoiditis and inflammation However there was no obstruction and I was able to pass the colonoscope up to the hepatic flexure with some residual stool in the ascending cecum and transverse colon vital signs Vital Sign Date Time Temp Pulse Resp B/P (MAP) Pulse Ox O2 Delivery O2 Flow Rate FiO2 05/21/25 17:00 98.6 91 21 155/62 (93) 91 98.6 05/21/25 16:00 Hi-Flow Heated NC+ 50 50 50 Total Intake and Output 05/20/25 05/20/25 05/21/25 15:00 23:00 07:00 Intake Total 240 ml 422 ml 688 ml Output Total 2000 ml 1010 ml Balance 240 ml -1578 ml -322 ml medications Current Medications Medications Dose Ordered Sig/Gregory Route Start Time Stop Time Status Last Admin Dose Admin Pantoprazole Sodium 40 mg DAILY IV 04/16/25 10:00 05/21/25 09:56 40 MG Amino Acids 0 ml @ 0 mls/hr PER PHARMACY IV 04/18/25 17:45 Sodium Chloride 10 ml QSHIFT@10,22 IV 04/21/25 22:00 05/21/25 09:41 10 ML Albuterol 2.5 mg Q3HPRN PRN NEB 04/24/25 16:15 05/15/25 14:26 2.5 MG Nicardipine/ Sodium Chloride 200 ml @ 50 mls/hr Q4H IV 04/25/25 09:45 Diagnostic Test (Pha) 1 strip Q6HR 04/30/25 12:00 05/21/25 12:14 1 STRIP Insulin Human Regular FOLLOW SLIDING SCALE Q6HR SC 04/30/25 12:00 05/14/25 00:03 2 UNITS Dextrose 50 ml UD IV 04/30/25 09:00 05/09/25 00:20 50 ML Lidocaine 1 patch DAILY TOP 04/30/25 10:30 05/17/25 08:26 1 PATCH Morphine Sulfate 1 mg Q6HP PRN IV 04/30/25 10:30 05/02/25 17:58 1 MG Metoprolol Tartrate 2.5 mg Q4HR PRN IV 04/30/25 11:30 05/14/25 23:33 2.5 MG Acetylcysteine 100 mg Q4HR NEB 05/05/25 10:00 UNV Enoxaparin Sodium 50 mg Q12HR SC 05/07/25 22:00 05/21/25 09:58 50 MG Acetaminophen 650 mg Q6HP PRN [place] 05/09/25 10:30 Vancomycin HCl 250 ml @ 200 mls/hr Q12H IV 05/09/25 18:00 Cancel Dextrose/Sodium Chloride 1,000 ml @ 30 mls/hr Q24H IV 05/10/25 18:15 05/19/25 21:05 30 MLS/HR Levalbuterol HCl 0.625 mg Q8HR NEB 05/11/25 14:00 05/21/25 14:11 0.625 MG Ipratropium [place] 0.5 mg Q8HR NEB 05/11/25 14:00 05/21/25 14:11 0.5 MG Acetylcysteine 100 mg Q8HR NEB 05/11/25 14:00 05/21/25 14:11 100 MG Potassium Acetate 40 meq/Potassium Phosphate 35 meq/ Calcium Gluconate 6.975 meq/ Magnesium Sulfate 26 meq/ Multivitamins 10 ml/Chromium/ Copper/Manganese/ Zinc 1 ml/Amino Acids/Dextrose 1,160.4545 ml @ 48.6 mls/hr [id number] IV 05/14/25 22:00 05/15/25 21:59 Cancel Fat Emulsion Intravenous 50 ml/ Potassium Acetate 20 meq/Potassium Phosphate 30 meq/ Calcium Gluconate 9.3 meq/Magnesium Sulfate 32 meq/ Multivitamins 10 ml/Chromium/ Copper/Manganese/ Zinc 1 ml/Amino Acids/Dextrose/ Purified Water 1,305.8182 ml @ 54 mls/hr [id number] IV 05/20/25 22:00 05/21/25 21:59 05/20/25 21:59 54 MLS/HR Metoclopramide HCl 5 mg Q6HR IV 05/20/25 18:00 05/21/25 12:23 5 MG Lactulose 30 ml BID NG 05/21/25 10:00 05/21/25 09:57 30 ML Ceftriaxone Sodium 50 ml @ 100 mls/hr DAILY@09 IV 05/21/25 09:00 05/21/25 09:46 100 MLS/HR Fat Emulsion Intravenous 50 ml/ Potassium Acetate 20 meq/Potassium Phosphate 44 meq/ Calcium Gluconate 6.975 meq/ Magnesium Sulfate 32 meq/ Multivitamins 10 ml/Chromium/ Copper/Manganese/ Zinc 1 ml/Amino Acids/Dextrose/ Purified Water 1,304 ml @ 55 mls/hr [id number] IV 05/21/25 22:00 05/22/25 21:59 objective General Appearance: Extubated on high-flow oxygen HEENT: PERRLA, EOMI Lungs: Decreased breath sound on left lower lung. High-flow at 50% FiO2 Cardiovascular: Normal S1, Normal S2 Abdomen: No tenderness, No hepatospenomegaly, hypoactive bowel sounds, surgical wound dry Genitourinary: No Apparent Abnormalities (Grewal catheter) Musculoskeletal: Normal sensory function, Normal motor function Extremities: No edema, Normal pulses, No tenderness/swelling laboratory and microbiology Laboratory Tests 05/21/25 03:22 Test 05/21/25 03:22 Range/Units Serum Glucose 133 H 74-106 mg/dL Problems(with codes): (1) Ileus (2) Choledocholithiasis (3) Small bowel obstruction (4) COPD (chronic obstructive pulmonary disease) (5) Diabetes (6) Unable to ambulate Prognosis Plan Continue supportive care IV TPN Enteral tube feedings may be initiated at trickle tube feedings Monitor labs Prognosis remains guarded due to overall debilitation dementia and weakness Dietary Evaluation Review Recommendations by RD: PPN/TPN Comments: 1) Increase TPN to meet at least 75% estimated daily needs 2) Advance to cardiac diet when medically feasible 3) Follow-up with gastroenterology and neurology 4) Continue to monitor I&O, labs, and skin integrity Expected Outcomes/Goals: 1) nutrition support to meet at least 75% estimated daily needs 2) labs to improve 3) diet to advance 4) gradual wt gain 5) f/u in 2-3 days Plan discussed with: Other (Dr Azul Cui) JIL CUI MD May 21, 2025 17:24
--- NOTE | 2025-05-21 17:30 | DVHPN2 ---
Progress Note Date Seen: May 21, 2025 Medical Necessity Reason Pt with a Central, PICC or Fol: Yes The following are medically ne: PICC Line, Grewal Catheter Objective vital signs Vital Sign Date Time Temp Pulse Resp B/P (MAP) Pulse Ox O2 Delivery O2 Flow Rate FiO2 05/21/25 17:00 98.6 91 21 155/62 (93) 91 98.6 05/21/25 16:00 Hi-Flow Heated NC+ 50 50 50 Total Intake and Output 05/20/25 05/20/25 05/21/25 15:00 23:00 07:00 Intake Total 240 ml 422 ml 688 ml Output Total 2000 ml 1010 ml Balance 240 ml -1578 ml -322 ml medications Current Medications Medications Dose Ordered Sig/Gregory Route Start Time Stop Time Status Last Admin Dose Admin Pantoprazole Sodium 40 mg DAILY IV 04/16/25 10:00 05/21/25 09:56 40 MG Amino Acids 0 ml @ 0 mls/hr PER PHARMACY IV 04/18/25 17:45 Sodium Chloride 10 ml QSHIFT@ IV 04/21/25 22:00 05/21/25 09:41 10 ML Albuterol 2.5 mg Q3HPRN PRN NEB 04/24/25 16:15 05/15/25 14:26 2.5 MG Nicardipine/ Sodium Chloride 200 ml @ 50 mls/hr Q4H IV 04/25/25 09:45 Diagnostic Test (Pha) 1 strip Q6HR 04/30/25 12:00 05/21/25 12:14 1 STRIP Insulin Human Regular FOLLOW SLIDING SCALE Q6HR SC 04/30/25 12:00 05/14/25 00:03 2 UNITS Dextrose 50 ml UD IV 04/30/25 09:00 05/09/25 00:20 50 ML Lidocaine 1 patch DAILY TOP 04/30/25 10:30 05/17/25 08:26 1 PATCH Morphine Sulfate 1 mg Q6HP PRN IV 04/30/25 10:30 05/02/25 17:58 1 MG Metoprolol Tartrate 2.5 mg Q4HR PRN IV 04/30/25 11:30 05/14/25 23:33 2.5 MG Acetylcysteine 100 mg Q4HR NEB 05/05/25 10:00 UNV Enoxaparin Sodium 50 mg Q12HR SC 05/07/25 22:00 05/21/25 09:58 50 MG Acetaminophen 650 mg Q6HP PRN [place] 05/09/25 10:30 Vancomycin HCl 250 ml @ 200 mls/hr Q12H IV 05/09/25 18:00 Cancel Dextrose/Sodium Chloride 1,000 ml @ 30 mls/hr Q24H IV 05/10/25 18:15 05/19/25 21:05 30 MLS/HR Levalbuterol HCl 0.625 mg Q8HR NEB 05/11/25 14:00 05/21/25 14:11 0.625 MG Ipratropium [place] 0.5 mg Q8HR NEB 05/11/25 14:00 05/21/25 14:11 0.5 MG Acetylcysteine 100 mg Q8HR NEB 05/11/25 14:00 05/21/25 14:11 100 MG Potassium Acetate 40 meq/Potassium Phosphate 35 meq/ Calcium Gluconate 6.975 meq/ Magnesium Sulfate 26 meq/ Multivitamins 10 ml/Chromium/ Copper/Manganese/ Zinc 1 ml/Amino Acids/Dextrose 1,160.4545 ml @ 48.6 mls/hr [id number] IV 05/14/25 22:00 05/15/25 21:59 Cancel Fat Emulsion Intravenous 50 ml/ Potassium Acetate 20 meq/Potassium Phosphate 30 meq/ Calcium Gluconate 9.3 meq/Magnesium Sulfate 32 meq/ Multivitamins 10 ml/Chromium/ Copper/Manganese/ Zinc 1 ml/Amino Acids/Dextrose/ Purified Water 1,305.8182 ml @ 54 mls/hr [id number] IV 05/20/25 22:00 05/21/25 21:59 05/20/25 21:59 54 MLS/HR Metoclopramide HCl 5 mg Q6HR IV 05/20/25 18:00 05/21/25 12:23 5 MG Lactulose 30 ml BID NG 05/21/25 10:00 05/21/25 09:57 30 ML Ceftriaxone Sodium 50 ml @ 100 mls/hr DAILY@09 IV 05/21/25 09:00 05/21/25 09:46 100 MLS/HR Fat Emulsion Intravenous 50 ml/ Potassium Acetate 20 meq/Potassium Phosphate 44 meq/ Calcium Gluconate 6.975 meq/ Magnesium Sulfate 32 meq/ Multivitamins 10 ml/Chromium/ Copper/Manganese/ Zinc 1 ml/Amino Acids/Dextrose/ Purified Water 1,304 ml @ 55 mls/hr [id number] IV 05/21/25 22:00 05/22/25 21:59 laboratory and microbiology Laboratory Tests 05/21/25 03:22 Test 05/21/25 03:22 Range/Units Serum Glucose 133 H 74-106 mg/dL Microbiology Date/Time Source Procedure Growth Status 05/16/25 13:14 Urine - Grewal Port Urine Culture - Final Complete 05/09/25 11:22 Blood Blood Culture - Final NO GROWTH AFTER 5 DAYS OF INCUBATION. Complete 05/02/25 20:30 Sputum Gram Stain - Final Complete 05/02/25 20:30 Sputum Respiratory Culture - Final Complete 05/02/25 00:00 Nose MRSA Screen - Final Complete 04/30/25 14:30 Pleural Fluid Gram Stain - Final Complete 04/30/25 14:30 Pleural Fluid Body Fluid Culture - Final Complete Problem List/Assessment/Plan Problem List/Assessment/Plan AFEBRILE VSS REMAINS EXTUBATED ABD SOFT NON DISTENDED BM + SIGMOIDOSCOPY NO ACUTE OBSTRUCTION POSSIBLE MUCOSAL EDEMA WITH SOME SPASM CONTINUE SUPPORTIVE CARE FAMILY AWARE OF PT CONDITION NURSE AT BEDSIDE ONGOING PULM EVAL NG LCS REPEAT KUB AM CONSIDER EMERGENT SURGERY BASED ON ONGOING EVAL Plan discussed with: Other Dietary Evaluation Review Recommendations by RD: PPN/TPN Comments: 1) Increase TPN to meet at least 75% estimated daily needs 2) Advance to cardiac diet when medically feasible 3) Follow-up with gastroenterology and neurology 4) Continue to monitor I&O, labs, and skin integrity Expected Outcomes/Goals: 1) nutrition support to meet at least 75% estimated daily needs 2) labs to improve 3) diet to advance 4) gradual wt gain 5) f/u in 2-3 days GLORIA MCNEAL MD May 21, 2025 17:30
[2025-05-22] VITALS (60 sets, daily range): BP systolic 122–176; BP diastolic 49–85; PULSE 69–118; RESP 19–46; TEMP 97.6–100.1; O2SAT 85–100
[2025-05-22 03:56] LABS: Nucleated Red Blood Cells % 0.1 %
[2025-05-22 03:59] LABS: Hematocrit 27.8 % (36.0-46.0); Hemoglobin 9.2 g/dL (12.2-16.2); Mean Corpuscular Hemoglobin 33.3 pg (28.0-32.0); Mean Corpuscular Volume 100.2 fL (80.0-100.0)
[2025-05-22 04:26] LABS: Alanine Aminotransferase 32 U/L (7-40); BUN/Creatinine Ratio 92.9 (10.0-20.0); Bilirubin, Total 0.4 mg/dL (0.2-1.0); Magnesium 2.0 mg/dL (1.6-2.6); Total Protein 5.8 g/dL (5.7-8.2)
[2025-05-22 04:39] LABS: Albumin 3.1 g/dL (3.2-4.8); Alkaline Phosphatase 123 U/L (46-116); Blood Urea Nitrogen 26 mg/dL (9-23); Calcium 7.6 mg/dL (8.7-10.4); Chloride 111 mmol/L (98-107); Glucose 131 mg/dL (74-106); Potassium 2.9 mmol/L (3.5-5.1); Sodium 147 mmol/L (136-145)
[2025-05-22 04:47] LABS: Anion Gap 10 (5-15); Carbon Dioxide 26 mmol/L (20-31)
[2025-05-22] MEDS: POTASSIUM CHL 20MEQ/100ML 100 ML IV SCH (05:54)
--- NOTE | 2025-05-22 09:37 | DVHPN2 ---
Subjective Patient denies any symptoms at this time. Reviewed: Care Plan, H&P, Labs, Medications Changes from previous H/P or p: No Changes General: Per HPI Objective Vitals Vital Signs Date Time Temp Pulse Resp B/P (MAP) Pulse Ox O2 Delivery O2 Flow Rate FiO2 05/22/25 09:30 86 30 159/66 (97) 05/22/25 09:00 98 05/22/25 08:00 Hi-Flow Heated NC+ 60 55 55 05/22/25 07:45 99.2 99.2 Intake/Output Intake and Output 05/22/25 07:00 Intake Total 1996 ml Output Total 1626 ml Balance 370 ml Intake Oral 90 ml IV Total 1906 ml Output Urine Total 1250 ml Stool Total 1 ml Gastric Drainage Total 375 ml # Bowel Movements 3 General Appearance: Alert, mild distress HEENT: Atraumatic, PERRLA, Other Lungs: Clear to auscultation, Normal air movement, Other (Patient on high-flow nasal cannula) Cardiovascular: Normal S1, Normal S2, Other (Fibrillation with controlled rate) Abdomen: No tenderness, No hepatospenomegaly, Other (Hypoactive bowel sounds.) Genitourinary: No Apparent Abnormalities (Grewal catheter) Musculoskeletal: Normal sensory function, Normal motor function Extremities: No edema, Normal pulses, No tenderness/swelling Neuro: Cranial nerves 3-12 NL, Other Skin: Dry, Intact, Wounds, Other (Surgical wound D&I) Psych/Mental Status: Mood NL Medications Current Medications Medications Dose Ordered Sig/Gregory Route Start Time Stop Time Status Last Admin Dose Admin Pantoprazole Sodium 40 mg DAILY IV 04/16/25 10:00 05/22/25 09:21 40 MG Amino Acids 0 ml @ 0 mls/hr PER PHARMACY IV 04/18/25 17:45 Sodium Chloride 10 ml QSHIFT@10,22 IV 04/21/25 22:00 05/22/25 09:21 10 ML Albuterol 2.5 mg Q3HPRN PRN NEB 04/24/25 16:15 05/15/25 14:26 2.5 MG Nicardipine/ Sodium Chloride 200 ml @ 50 mls/hr Q4H IV 04/25/25 09:45 Diagnostic Test (Pha) 1 strip Q6HR 04/30/25 12:00 05/22/25 06:03 1 STRIP Insulin Human Regular FOLLOW SLIDING SCALE Q6HR SC 04/30/25 12:00 05/22/25 06:05 2 UNITS Dextrose 50 ml UD IV 04/30/25 09:00 05/09/25 00:20 50 ML Lidocaine 1 patch DAILY TOP 04/30/25 10:30 05/17/25 08:26 1 PATCH Morphine Sulfate 1 mg Q6HP PRN IV 04/30/25 10:30 05/02/25 17:58 1 MG Metoprolol Tartrate 2.5 mg Q4HR PRN IV 04/30/25 11:30 05/14/25 23:33 2.5 MG Acetylcysteine 100 mg Q4HR NEB 05/05/25 10:00 UNV Enoxaparin Sodium 50 mg Q12HR SC 05/07/25 22:00 05/22/25 09:21 50 MG Acetaminophen 650 mg Q6HP PRN [place] 05/09/25 10:30 Vancomycin HCl 250 ml @ 200 mls/hr Q12H IV 05/09/25 18:00 Cancel Dextrose/Sodium Chloride 1,000 ml @ 30 mls/hr Q24H IV 05/10/25 18:15 05/19/25 21:05 30 MLS/HR Levalbuterol HCl 0.625 mg Q8HR [facility] 05/11/25 14:00 05/22/25 07:07 0.625 MG Ipratropium [place] 0.5 mg Q8HR [facility] 05/11/25 14:00 05/22/25 07:07 0.5 MG Acetylcysteine 100 mg Q8HR [facility] 05/11/25 14:00 05/22/25 07:08 100 MG Potassium Acetate 40 meq/Potassium Phosphate 35 meq/ Calcium Gluconate 6.975 meq/ Magnesium Sulfate 26 meq/ Multivitamins 10 ml/Chromium/ Copper/Manganese/ Zinc 1 ml/Amino Acids/Dextrose 1,160.4545 ml @ 48.6 mls/hr [id number] IV 05/14/25 22:00 05/15/25 21:59 Cancel Metoclopramide HCl 5 mg Q6HR IV 05/20/25 18:00 05/21/25 18:04 5 MG Lactulose 30 ml BID NG 05/21/25 10:00 05/21/25 21:19 30 ML Ceftriaxone Sodium 50 ml @ 100 mls/hr DAILY@09 IV 05/21/25 09:00 05/22/25 09:21 100 MLS/HR Fat Emulsion Intravenous 50 ml/ Potassium Acetate 20 meq/Potassium Phosphate 44 meq/ Calcium Gluconate 6.975 meq/ Magnesium Sulfate 32 meq/ Multivitamins 10 ml/Chromium/ Copper/Manganese/ Zinc 1 ml/Amino Acids/Dextrose/ Purified Water 1,304 ml @ 55 mls/hr [id number] IV 05/21/25 22:00 05/22/25 21:59 05/21/25 22:11 55 MLS/HR Potassium Chloride 100 ml @ 50 mls/hr Q2H IV 05/22/25 05:45 05/22/25 09:44 05/22/25 08:05 50 MLS/HR Laboratory Results Laboratory Tests 05/22/25 03:16 Chemistry Test 05/22/25 03:16 Albumin 3.1 g/dL (3.2-4.8) L Calcium Level 7.6 mg/dL (8.7-10.4) L Magnesium Level 2.0 mg/dL (1.6-2.6) Phosphorus Level 2.3 mg/dL (2.4-5.1) L Total Protein 5.8 g/dL (5.7-8.2) LFT Test 05/22/25 03:16 Alanine Aminotransferase (ALT) 32 U/L (7-40) Alkaline Phosphatase 123 U/L (46-116) H Aspartate Amino Transferase (AST) 33 U/L (13-40) Total Bilirubin 0.4 mg/dL (0.2-1.0) Urinalysis Test 04/15/25 15:45 05/11/25 14:35 Urine Amorphous Crystals Few /hpf (None Seen) Urine Hyaline Casts Few /lpf (0 - 2) Urine Mucus Few (None Seen) Urine Color Light-yellow (Yellow) Urine Clarity Clear (Clear) Urine pH 7.0 (5.0-9.0) Urine Specific [place] 1.021 (1.001-1.035) Urine Protein Negative (Negative) Urine Ketones Negative (Negative) Urine Blood 1+ /uL (Negative) H Urine Nitrite Negative (Negative) Urine Bilirubin Negative (Negative) Urine Urobilinogen Normal mg/dL (Negative) Urine Leukocyte Esterase Negative /uL (Negative) Urine RBC 55 /hpf (0 - 4) Urine Microscopic WBC 1 /HPF (0-5) Urine Squamous Epithelial Cells Few /hpf (<5) Urine Bacteria None seen /hpf (None Seen) Urine Glucose Normal mg/dL (Normal) Microbiology Microbiology Date/Time Source Procedure Growth Status 05/16/25 13:14 Urine - Grewal Port Urine Culture - Final Complete 05/09/25 11:22 Blood Blood Culture - Final NO GROWTH AFTER 5 DAYS OF INCUBATION. Complete 05/02/25 20:30 Sputum Gram Stain - Final Complete 05/02/25 20:30 Sputum Respiratory Culture - Final Complete 05/02/25 00:00 Nose MRSA Screen - Final Complete 04/30/25 14:30 Pleural Fluid Gram Stain - Final Complete 04/30/25 14:30 Pleural Fluid Body Fluid Culture - Final Complete Labs and/or images reviewed: Labs reviewed by me, Image(s) reviewed by me Assessment/Plan Assessment/Plan Impression: -choledocholithiasis -acute pancreatitis -small-bowel obstruction -dementia -cachexia -sepsis -COPD -GERD -Post op delirium -Accelerated HTN -A. fib Plan: Events: Reported three bowel movements overnight. Patient had periods of hypoxia requiring high-flow nasal cannula to be increased to 60% FiO2. -repeat KUB. If no signs of gastric or bowel distention, clamp NG tube and possible introduction of clear liquids today -continue Reglan, add lactulose via NG tube -start metoprolol tartrate 12.5 mg via G-tube -Continue TPN, IV fluid -Continue current abx -PPI -full-dose anticoagulation -continue Xopenex, ipratropium. Stop Mucomyst -repeat labs and chest x-ray in a.m. Critical care time spent with patient discussing and formulating plan of care: 40 minutes. This does not include time spent performing procedures. This medical document was created using an electronic medical record system with [employer] dictation system. Although this document has been carefully reviewed, there may still be some phonetic and typographical errors. These areas are purely typographical due to imperfections of the software programs, and do not reflect any compromise in the patient's medical care. Plan discussed with: Patient, Other (RN) My Orders Orders - JAYDEN HILL [employer] Procedure Category Date Status Time Kub Abdomen Single XY 05/22/25 Logged View 08:24 Metoprolol Tartrate PHA 05/22/25 Verified Tablet (Lopressor Ta 10:00 Date of Service: May 22, 2025 Billing Provider: JAYDEN HILL NP Common Visit Codes: [id number] CARE 30-74 MIN JAYDEN HILL NP May 22, 2025 09:37
[2025-05-22] MEDS: METOPROLOL TARTRATE 25 MG TAB PO SCH (10:55)
--- NOTE | 2025-05-22 11:04 | DVH ---
Date: 05/22/2025 10:19 AM Examination: XY KUB ABDOMEN SINGLE VIEW History: rule out ileus Comparison: XY KUB ABDOMEN SINGLE VIEW on DOS: 05/18/25, XY KUB ABDOMEN SINGLE VIEW on DOS: 05/16/25, XY KUB ABDOMEN SINGLE VIEW on DOS: 05/15/25, XY KUB ABDOMEN SINGLE VIEW on DOS: 05/14/25, XY KUB ABDOMEN SINGLE VIEW on DOS: 05/13/25 TECHNIQUE: Frontal views of the abdomen was obtained. FINDINGS: Bowel gas pattern is unremarkable. The lung bases are unremarkable. No acute osseous abnormality identified. Bilateral hip prostheses noted. Nasogastric tube is noted within the stomach. IMPRESSION: 1. Nonobstructive bowel gas pattern.
--- NOTE | 2025-05-22 13:34 | DVHPN2 ---
Progress Note - Dictate Date Seen: May 22, 2025 Medical Necessity Reason Pt with a Central, PICC or Fol: Yes The following are medically ne: PICC Line, Grewal Catheter vital signs Vital Sign Date Time Temp Pulse Resp B/P (MAP) Pulse Ox O2 Delivery O2 Flow Rate FiO2 05/22/25 13:30 99.1 95 30 167/69 (101) 96 99.1 05/22/25 12:00 Hi-Flow Heated NC+ 60 60 60 Total Intake and Output 05/21/25 05/21/25 05/22/25 15:00 23:00 07:00 Intake Total 722 ml 589 ml 770 ml Output Total 776 ml 850 ml Balance 722 ml -187 ml -80 ml medications Current Medications Medications Dose Ordered Sig/Gregory Route Start Time Stop Time Status Last Admin Dose Admin Pantoprazole Sodium 40 mg DAILY IV 04/16/25 10:00 05/22/25 09:21 40 MG Amino Acids 0 ml @ 0 mls/hr PER PHARMACY IV 04/18/25 17:45 Sodium Chloride 10 ml QSHIFT@ IV 04/21/25 22:00 05/22/25 09:21 10 ML Albuterol 2.5 mg Q3HPRN PRN NEB 04/24/25 16:15 05/15/25 14:26 2.5 MG Diagnostic Test (Pha) 1 strip Q6HR 04/30/25 12:00 05/22/25 12:01 1 STRIP Insulin Human Regular FOLLOW SLIDING SCALE Q6HR SC 04/30/25 12:00 05/22/25 12:01 2 UNITS Dextrose 50 ml UD IV 04/30/25 09:00 05/09/25 00:20 50 ML Lidocaine 1 patch DAILY TOP 04/30/25 10:30 05/17/25 08:26 1 PATCH Morphine Sulfate 1 mg Q6HP PRN IV 04/30/25 10:30 05/02/25 17:58 1 MG Metoprolol Tartrate 2.5 mg Q4HR PRN IV 04/30/25 11:30 05/14/25 23:33 2.5 MG Acetylcysteine 100 mg Q4HR NEB 05/05/25 10:00 UNV Enoxaparin Sodium 50 mg Q12HR [place] 05/07/25 22:00 05/22/25 09:21 50 MG Acetaminophen 650 mg Q6HP PRN [place] 05/09/25 10:30 Vancomycin HCl 250 ml @ 200 mls/hr Q12H IV 05/09/25 18:00 Cancel Dextrose/Sodium Chloride 1,000 ml @ 30 mls/hr Q24H IV 05/10/25 18:15 05/19/25 21:05 30 MLS/HR Levalbuterol HCl 0.625 mg Q8HR NEB 05/11/25 14:00 05/22/25 07:07 0.625 MG Ipratropium [place] 0.5 mg Q8HR NEB 05/11/25 14:00 05/22/25 07:07 0.5 MG Potassium Acetate 40 meq/Potassium Phosphate 35 meq/ Calcium Gluconate 6.975 meq/ Magnesium Sulfate 26 meq/ Multivitamins 10 ml/Chromium/ Copper/Manganese/ Zinc 1 ml/Amino Acids/Dextrose 1,160.4545 ml @ 48.6 mls/hr [id number] IV 05/14/25 22:00 05/15/25 21:59 Cancel Metoclopramide HCl 5 mg Q6HR IV 05/20/25 18:00 05/22/25 12:02 5 MG Lactulose 30 ml BID NG 05/21/25 10:00 05/21/25 21:19 30 ML Ceftriaxone Sodium 50 ml @ 100 mls/hr DAILY@09 IV 05/21/25 09:00 05/22/25 09:21 100 MLS/HR Fat Emulsion Intravenous 50 ml/ Potassium Acetate 20 meq/Potassium Phosphate 44 meq/ Calcium Gluconate 6.975 meq/ Magnesium Sulfate 32 meq/ Multivitamins 10 ml/Chromium/ Copper/Manganese/ Zinc 1 ml/Amino Acids/Dextrose/ Purified Water 1,304 ml @ 55 mls/hr [id number] IV 05/21/25 22:00 05/22/25 21:59 05/21/25 22:11 55 MLS/HR Metoprolol Tartrate 12.5 mg BID PO 05/22/25 10:00 05/22/25 10:55 12.5 MG Fat Emulsion Intravenous 50 ml/ Potassium Phosphate 44 meq/ Calcium Gluconate 9.3 meq/Magnesium Sulfate 32 meq/ Multivitamins 10 ml/Chromium/ Copper/Manganese/ Zinc 1 ml/ Potassium Acetate 30 meq/Amino Acids/Dextrose/ Purified Water 1,314 ml @ 54 mls/hr [id number] IV 05/22/25 22:00 05/23/25 21:59 laboratory and microbiology Laboratory Tests 05/22/25 03:16 Test 05/22/25 03:16 Range/Units Serum Glucose 131 H 74-106 mg/dL Assessment/Plan Impression Acute hypoxemic respiratory failure Lung collapse Pneumonia Atelectasis SBO Patient seen and examined in ICU Events s/p extubation no bowel movement yet on HFO AAOx4 S/p sigmoidoscopy No evidence of obstruction noted Labs and imaging reviewed ABG reviewed Management Supplemental oxygen Titrate to maintain sats 90% or above Incentive spirometry Aspiration precautions Advance diet as tolerated Continue antibiotics F/u cultures Bronchodilators Monitor renal function Monitor electrolytes Supplement as needed F/u general surgery DVT prophylaxis Critical care time 35 minutes Dietary Evaluation Review Recommendations by RD: PPN/TPN Comments: 1) Increase TPN to meet at least 75% estimated daily needs 2) Advance to cardiac diet when medically feasible 3) Follow-up with gastroenterology and neurology 4) Continue to monitor I&O, labs, and skin integrity Expected Outcomes/Goals: 1) nutrition support to meet at least 75% estimated daily needs 2) labs to improve 3) diet to advance 4) gradual wt gain 5) f/u in 2-3 days BRUNO GOLDMAN MD May 22, 2025 13:34
[2025-05-22] MEDS: POTASSIUM PHOSPHATE 44 MEQ in D5W 5% 250 ML IV ONE (13:38)
--- NOTE | 2025-05-22 14:58 | DVHPN2 ---
Progress Note Date Seen: May 22, 2025 Medical Necessity Reason Pt with a Central, PICC or Fol: Yes The following are medically ne: PICC Line, Grewal Catheter Objective vital signs Vital Sign Date Time Temp Pulse Resp B/P (MAP) Pulse Ox O2 Delivery O2 Flow Rate FiO2 05/22/25 14:42 87 35 92 60.0 60 05/22/25 14:04 165/69 05/22/25 14:00 Hi-Flow Heated NC+ 05/22/25 13:30 99.1 99.1 Total Intake and Output 05/21/25 05/21/25 05/22/25 15:00 23:00 07:00 Intake Total 722 ml 589 ml 770 ml Output Total 776 ml 850 ml Balance 722 ml -187 ml -80 ml medications Current Medications Medications Dose Ordered Sig/Gregory Route Start Time Stop Time Status Last Admin Dose Admin Pantoprazole Sodium 40 mg DAILY IV 04/16/25 10:00 05/22/25 09:21 40 MG Amino Acids 0 ml @ 0 mls/hr PER PHARMACY IV 04/18/25 17:45 Sodium Chloride 10 ml QSHIFT@10,22 IV 04/21/25 22:00 05/22/25 09:21 10 ML Albuterol 2.5 mg Q3HPRN PRN NEB 04/24/25 16:15 05/15/25 14:26 2.5 MG Diagnostic Test (Pha) 1 strip Q6HR 04/30/25 12:00 05/22/25 12:01 1 STRIP Insulin Human Regular FOLLOW SLIDING SCALE Q6HR SC 04/30/25 12:00 05/22/25 12:01 2 UNITS Dextrose 50 ml UD IV 04/30/25 09:00 05/09/25 00:20 50 ML Lidocaine 1 patch DAILY TOP 04/30/25 10:30 05/17/25 08:26 1 PATCH Morphine Sulfate 1 mg Q6HP PRN IV 04/30/25 10:30 05/02/25 17:58 1 MG Metoprolol Tartrate 2.5 mg Q4HR PRN IV 04/30/25 11:30 05/22/25 14:04 2.5 MG Acetylcysteine 100 mg Q4HR NEB 05/05/25 10:00 UNV Enoxaparin Sodium 50 mg Q12HR SC 05/07/25 22:00 05/22/25 09:21 50 MG Acetaminophen 650 mg Q6HP PRN [place] 05/09/25 10:30 Vancomycin HCl 250 ml @ 200 mls/hr Q12H IV 05/09/25 18:00 Cancel Dextrose/Sodium Chloride 1,000 ml @ 30 mls/hr Q24H IV 05/10/25 18:15 05/19/25 21:05 30 MLS/HR Levalbuterol HCl 0.625 mg Q8HR NEB 05/11/25 14:00 05/22/25 14:38 0.625 MG Ipratropium [place] 0.5 mg Q8HR NEB 05/11/25 14:00 05/22/25 14:38 0.5 MG Potassium Acetate 40 meq/Potassium Phosphate 35 meq/ Calcium Gluconate 6.975 meq/ Magnesium Sulfate 26 meq/ Multivitamins 10 ml/Chromium/ Copper/Manganese/ Zinc 1 ml/Amino Acids/Dextrose 1,160.4545 ml @ 48.6 mls/hr [id number] IV 05/14/25 22:00 05/15/25 21:59 Cancel Metoclopramide HCl 5 mg Q6HR IV 05/20/25 18:00 05/22/25 12:02 5 MG Lactulose 30 ml BID NG 05/21/25 10:00 05/21/25 21:19 30 ML Ceftriaxone Sodium 50 ml @ 100 mls/hr DAILY@09 IV 05/21/25 09:00 05/22/25 09:21 100 MLS/HR Fat Emulsion Intravenous 50 ml/ Potassium Acetate 20 meq/Potassium Phosphate 44 meq/ Calcium Gluconate 6.975 meq/ Magnesium Sulfate 32 meq/ Multivitamins 10 ml/Chromium/ Copper/Manganese/ Zinc 1 ml/Amino Acids/Dextrose/ Purified Water 1,304 ml @ 55 mls/hr [id number] IV 05/21/25 22:00 05/22/25 21:59 05/21/25 22:11 55 MLS/HR Metoprolol Tartrate 12.5 mg BID PO 05/22/25 10:00 05/22/25 10:55 12.5 MG Fat Emulsion Intravenous 50 ml/ Potassium Phosphate 44 meq/ Calcium Gluconate 9.3 meq/Magnesium Sulfate 32 meq/ Multivitamins 10 ml/Chromium/ Copper/Manganese/ Zinc 1 ml/ Potassium Acetate 30 meq/Amino Acids/Dextrose/ Purified Water 1,314 ml @ 54 mls/hr [id number] IV 05/22/25 22:00 05/23/25 21:59 Labetalol HCl 10 mg Q2HPRN PRN IV 05/22/25 13:45 UNV laboratory and microbiology Laboratory Tests 05/22/25 03:16 Test 05/22/25 03:16 Range/Units Serum Glucose 131 H 74-106 mg/dL Microbiology Date/Time Source Procedure Growth Status 05/16/25 13:14 Urine - Grewal Port Urine Culture - Final Complete 05/09/25 11:22 Blood Blood Culture - Final NO GROWTH AFTER 5 DAYS OF INCUBATION. Complete 05/02/25 20:30 Sputum Gram Stain - Final Complete 05/02/25 20:30 Sputum Respiratory Culture - Final Complete 05/02/25 00:00 Nose MRSA Screen - Final Complete 04/30/25 14:30 Pleural Fluid Gram Stain - Final Complete 04/30/25 14:30 Pleural Fluid Body Fluid Culture - Final Complete Problem List/Assessment/Plan Problem List/Assessment/Plan AFEBRILE VSS REMAINS EXTUBATED ABD SOFT NON DISTENDED BM + CONTINUE SUPPORTIVE CARE FAMILY AWARE OF PT CONDITION NURSE AT BEDSIDE ONGOING PULM EVAL CLAMP NG REPEAT KUB CONTRAST IN COLON CLEARED CONTINUE CLOSE OBSERVATION Plan discussed with: Other Dietary Evaluation Review Recommendations by RD: PPN/TPN Comments: 1) Increase TPN to meet at least 75% estimated daily needs 2) Advance to cardiac diet when medically feasible 3) Follow-up with gastroenterology and neurology 4) Continue to monitor I&O, labs, and skin integrity Expected Outcomes/Goals: 1) nutrition support to meet at least 75% estimated daily needs 2) labs to improve 3) diet to advance 4) gradual wt gain 5) f/u in 2-3 days GLORIA MCNEAL MD May 22, 2025 14:58
[2025-05-22] MEDS: LABETALOL HCL 20 MG/4 ML VL IV PRN (17:49)
[2025-05-22] MEDS: TPN PER PHARMACY IV NR (21:20)
--- NOTE | 2025-05-22 21:23 | DVHPN2 ---
Progress Note - Dictate Date Seen: May 22, 2025 Medical Necessity Reason Pt with a Central, PICC or Fol: Yes The following are medically ne: PICC Line, Grewal Catheter Subjective Patient is on high-flow oxygen 65% FiO2 Patient had multiple bowel movement NGT clamped Sigmoidoscopy/colonoscopy showed sigmoid spasm and tortuosity and some sigmoiditis and inflammation However there was no obstruction and I was able to pass the colonoscope up to the hepatic flexure with some residual stool in the ascending cecum and transverse colon vital signs Vital Sign Date Time Temp Pulse Resp B/P (MAP) Pulse Ox O2 Delivery O2 Flow Rate FiO2 05/22/25 21:17 92 147/70 05/22/25 20:00 100.1 35 96 100.1 05/22/25 20:00 Hi-Flow Heated NC+ 60 55 55 Total Intake and Output 05/21/25 05/21/25 05/22/25 15:00 23:00 07:00 Intake Total 722 ml 589 ml 770 ml Output Total 776 ml 850 ml Balance 722 ml -187 ml -80 ml medications Current Medications Medications Dose Ordered Sig/Gregory Route Start Time Stop Time Status Last Admin Dose Admin Pantoprazole Sodium 40 mg DAILY IV 04/16/25 10:00 05/22/25 09:21 40 MG Amino Acids 0 ml @ 0 mls/hr PER PHARMACY IV 04/18/25 17:45 Sodium Chloride 10 ml QSHIFT@10,22 IV 04/21/25 22:00 05/22/25 09:21 10 ML Albuterol 2.5 mg Q3HPRN PRN NEB 04/24/25 16:15 05/15/25 14:26 2.5 MG Diagnostic Test (Pha) 1 strip Q6HR 04/30/25 12:00 05/22/25 17:55 1 STRIP Insulin Human Regular FOLLOW SLIDING SCALE Q6HR SC 04/30/25 12:00 05/22/25 17:55 2 UNITS Dextrose 50 ml UD IV 04/30/25 09:00 05/09/25 00:20 50 ML Lidocaine 1 patch DAILY TOP 04/30/25 10:30 05/17/25 08:26 1 PATCH Morphine Sulfate 1 mg Q6HP PRN IV 04/30/25 10:30 05/02/25 17:58 1 MG Metoprolol Tartrate 2.5 mg Q4HR PRN IV 04/30/25 11:30 05/22/25 14:04 2.5 MG Acetylcysteine 100 mg Q4HR NEB 05/05/25 10:00 UNV Enoxaparin Sodium 50 mg Q12HR SC 05/07/25 22:00 05/22/25 21:17 50 MG Acetaminophen 650 mg Q6HP PRN HI 05/09/25 10:30 Vancomycin HCl 250 ml @ 200 mls/hr Q12H IV 05/09/25 18:00 Cancel Dextrose/Sodium Chloride 1,000 ml @ 30 mls/hr Q24H IV 05/10/25 18:15 05/22/25 18:15 30 MLS/HR Levalbuterol HCl 0.625 mg Q8HR NEB 05/11/25 14:00 05/22/25 14:38 0.625 MG Ipratropium [place] 0.5 mg Q8HR NEB 05/11/25 14:00 05/22/25 14:38 0.5 MG Potassium Acetate 40 meq/Potassium Phosphate 35 meq/ Calcium Gluconate 6.975 meq/ Magnesium Sulfate 26 meq/ Multivitamins 10 ml/Chromium/ Copper/Manganese/ Zinc 1 ml/Amino Acids/Dextrose 1,160.4545 ml @ 48.6 mls/hr [id number] IV 05/14/25 22:00 05/15/25 21:59 Cancel Metoclopramide HCl 5 mg Q6HR IV 05/20/25 18:00 05/22/25 17:49 5 MG Lactulose 30 ml BID NG 05/21/25 10:00 05/22/25 21:17 30 ML Ceftriaxone Sodium 50 ml @ 100 mls/hr DAILY@09 IV 05/21/25 09:00 05/22/25 09:21 100 MLS/HR Fat Emulsion Intravenous 50 ml/ Potassium Acetate 20 meq/Potassium Phosphate 44 meq/ Calcium Gluconate 6.975 meq/ Magnesium Sulfate 32 meq/ Multivitamins 10 ml/Chromium/ Copper/Manganese/ Zinc 1 ml/Amino Acids/Dextrose/ Purified Water 1,304 ml @ 55 mls/hr [id number] IV 05/21/25 22:00 05/22/25 21:59 05/21/25 22:11 55 MLS/HR Metoprolol Tartrate 12.5 mg BID PO 05/22/25 10:00 05/22/25 21:17 12.5 MG Fat Emulsion Intravenous 50 ml/ Potassium Phosphate 44 meq/ Calcium Gluconate 9.3 meq/Magnesium Sulfate 32 meq/ Multivitamins 10 ml/Chromium/ Copper/Manganese/ Zinc 1 ml/ Potassium Acetate 30 meq/Amino Acids/Dextrose/ Purified Water 1,314 ml @ 54 mls/hr [id number] IV 05/22/25 22:00 05/23/25 21:59 05/22/25 21:20 54 MLS/HR Labetalol HCl 10 mg Q2HPRN PRN IV 05/22/25 13:45 05/22/25 17:49 10 MG objective General Appearance: Extubated on high-flow oxygen HEENT: PERRLA, EOMI Lungs: Decreased breath sound on left lower lung. High-flow at 50% FiO2 Cardiovascular: Normal S1, Normal S2 Abdomen: No tenderness, No hepatospenomegaly, hypoactive bowel sounds, surgical wound dry Genitourinary: No Apparent Abnormalities (Grewal catheter) Musculoskeletal: Normal sensory function, Normal motor function Extremities: No edema, Normal pulses, No tenderness/swelling laboratory and microbiology Laboratory Tests 05/22/25 03:16 Test 05/22/25 03:16 Range/Units Serum Glucose 131 H 74-106 mg/dL Problems(with codes): (1) Ileus (2) Choledocholithiasis (3) Urinary tract infection (4) Acute respiratory distress (5) COPD (chronic obstructive pulmonary disease) (6) Small bowel obstruction Prognosis Plan Continue supportive care IV TPN Enteral tube feedings may be initiated at trickle tube feedings Monitor labs Prognosis remains guarded due to overall debilitation dementia and weakness Dietary Evaluation Review Recommendations by RD: PPN/TPN Comments: 1) Increase TPN to meet at least 75% estimated daily needs 2) Advance to cardiac diet when medically feasible 3) Follow-up with gastroenterology and neurology 4) Continue to monitor I&O, labs, and skin integrity Expected Outcomes/Goals: 1) nutrition support to meet at least 75% estimated daily needs 2) labs to improve 3) diet to advance 4) gradual wt gain 5) f/u in 2-3 days Plan discussed with: Patient, Other (ICU Nurse) JIL MCNEAL MD May 22, 2025 21:23
[2025-05-22] MEDS: ETOMIDATE (2MG/ML) 20ML VIAL IV ONE (21:56)
[2025-05-22] MEDS: ROCURONIUM 10MG/ML 10ML VIAL IV ONE (21:56)
[2025-05-22 22:22] LABS: Base Excess -6.5 mmol/L (-2.0-3.0)
[2025-05-22] MEDS: fentaNYL Drip 2500mCg/250mlNS 250 ML IV ONE (23:26)
[2025-05-22] MEDS: fentaNYL Drip 2500mCg/250mlNS 250 ML IV SCH (23:26)
--- NOTE | 2025-05-22 23:32 | DVH ---
CHEST RADIOGRAPH Indication: INTUBATION Technique: 1 view Comparison: XY CHEST PORTABLE on DOS: 05/21/25, XY CHEST PORTABLE on DOS: 05/20/25, XY CHEST PORTABLE on DOS: 05/19/25, XY CHEST PORTABLE on DOS: 05/17/25, XY CHEST XRAY 1 VIEW on DOS: 05/16/25 FINDINGS: Lines and Tubes: Intervally placed endotracheal tube terminates 4.9 cm above the choco. Enteric tube and right upper extremity PICC are unchanged. Lungs/Pleura: No significant change. Cardiomediastinum: Unchanged. Other: Unchanged osseous structures. IMPRESSION: 1. Intervally placed, adequately positioned endotracheal tube. Remaining support devices are stable. 2. No significant change in cardiopulmonary findings from the previous study. Bilateral perihilar mixed pulmonary opacities and small left pleural effusion.
[2025-05-22 23:57] LABS: Base Excess -2.5 mmol/L (-2.0-3.0)
[2025-05-23] VITALS (107 sets, daily range): BP systolic 79–138; BP diastolic 3–68; PULSE 60–86; RESP 14–34; TEMP 97.7–98.6; O2SAT 91–100
[2025-05-23 03:22] LABS: Alanine Aminotransferase 26 U/L (7-40); Alkaline Phosphatase 105 U/L (46-116); Anion Gap 9 (5-15); BUN/Creatinine Ratio 82.4 (10.0-20.0); Carbon Dioxide 26 mmol/L (20-31); Magnesium 2.2 mg/dL (1.6-2.6); Potassium 4.4 mmol/L (3.5-5.1); Sodium 145 mmol/L (136-145)
[2025-05-23 03:23] LABS: Bilirubin, Total 0.4 mg/dL (0.2-1.0)
[2025-05-23 03:35] LABS: Albumin 2.9 g/dL (3.2-4.8); Blood Urea Nitrogen 28 mg/dL (9-23); Calcium 7.7 mg/dL (8.7-10.4); Chloride 110 mmol/L (98-107); Glucose 118 mg/dL (74-106); Total Protein 5.7 g/dL (5.7-8.2)
[2025-05-23] MEDS: NOREPINEPHRINE 8 MG/250ML KIT 250 ML IV SCH (03:35)
[2025-05-23 03:51] LABS: Hematocrit 27.4 % (36.0-46.0); Hemoglobin 8.9 g/dL (12.2-16.2); Mean Corpuscular Hemoglobin 32.7 pg (28.0-32.0); Mean Corpuscular Volume 101.2 fL (80.0-100.0); Nucleated Red Blood Cells % 0.1 %
[2025-05-23] MEDS: PROPOFOL 100 ML IV SCH (04:50)
[2025-05-23] MEDS: LACTATED RINGER'S 500 ML IV ONE (08:28)
[2025-05-23 08:33] LABS: Base Excess -1.6 mmol/L (-2.0-3.0)
--- NOTE | 2025-05-23 12:38 | DVHPN2 ---
Subjective Patient denies any symptoms at this time. Reviewed: Care Plan, H&P, Labs, Medications Changes from previous H/P or p: No Changes General: Per HPI Objective Vitals Vital Signs Date Time Temp Pulse Resp B/P (MAP) Pulse Ox O2 Delivery O2 Flow Rate FiO2 05/23/25 12:27 67 19 105/3 (37) 98 40 05/23/25 10:00 Mechanical Ventilator+ 30 05/23/25 08:00 98.4 98.4 Intake/Output Intake and Output 05/23/25 07:00 Intake Total 2384.563 ml Output Total 1450 ml Balance 934.563 ml Intake Oral 80 ml IV Total 2304.563 ml Output Urine Total 1450 ml # Bowel Movements 3 General Appearance: moderate distress, Other (Intubated and sedated) HEENT: Atraumatic, PERRLA, Other Lungs: Clear to auscultation, Normal air movement, Other (Mechanical ventilation) Cardiovascular: Normal S1, Normal S2, Other (Fibrillation with controlled rate) Abdomen: No tenderness, No hepatospenomegaly, Other (Hypoactive bowel sounds.) Genitourinary: No Apparent Abnormalities (Grewal catheter) Musculoskeletal: Normal sensory function, Normal motor function Extremities: No edema, Normal pulses, No tenderness/swelling Neuro: Cranial nerves 3-12 NL, Other Skin: Dry, Intact, Wounds, Other (Surgical wound D&I) Psych/Mental Status: Mood NL Medications Current Medications Medications Dose Ordered Sig/Gregory Route Start Time Stop Time Status Last Admin Dose Admin Pantoprazole Sodium 40 mg DAILY IV 04/16/25 10:00 05/23/25 09:52 40 MG Amino Acids 0 ml @ 0 mls/hr PER PHARMACY IV 04/18/25 17:45 Sodium Chloride 10 ml QSHIFT@10,22 IV 04/21/25 22:00 05/23/25 09:52 10 ML Albuterol 2.5 mg Q3HPRN PRN NEB 04/24/25 16:15 05/15/25 14:26 2.5 MG Diagnostic Test (Pha) 1 strip Q6HR 04/30/25 12:00 05/23/25 05:34 1 STRIP Insulin Human Regular FOLLOW SLIDING SCALE Q6HR SC 04/30/25 12:00 05/22/25 23:32 4 UNITS Dextrose 50 ml UD IV 04/30/25 09:00 05/09/25 00:20 50 ML Lidocaine 1 patch DAILY TOP 04/30/25 10:30 05/17/25 08:26 1 PATCH Morphine Sulfate 1 mg Q6HP PRN IV 04/30/25 10:30 05/02/25 17:58 1 MG Metoprolol Tartrate 2.5 mg Q4HR PRN IV 04/30/25 11:30 05/22/25 14:04 2.5 MG Acetylcysteine 100 mg Q4HR NEB 05/05/25 10:00 UNV Enoxaparin Sodium 50 mg Q12HR SC 05/07/25 22:00 05/23/25 09:51 50 MG Acetaminophen 650 mg Q6HP PRN MD 05/09/25 10:30 Vancomycin HCl 250 ml @ 200 mls/hr Q12H IV 05/09/25 18:00 Cancel Dextrose/Sodium Chloride 1,000 ml @ 30 mls/hr Q24H IV 05/10/25 18:15 05/22/25 18:15 30 MLS/HR Levalbuterol HCl 0.625 mg Q8HR NEB 05/11/25 14:00 05/23/25 07:21 0.625 MG Ipratropium [place] 0.5 mg Q8HR NEB 05/11/25 14:00 05/23/25 07:21 0.5 MG Potassium Acetate 40 meq/Potassium Phosphate 35 meq/ Calcium Gluconate 6.975 meq/ Magnesium Sulfate 26 meq/ Multivitamins 10 ml/Chromium/ Copper/Manganese/ Zinc 1 ml/Amino Acids/Dextrose 1,160.4545 ml @ 48.6 mls/hr [id number] IV 05/14/25 22:00 05/15/25 21:59 Cancel Metoclopramide HCl 5 mg Q6HR IV 05/20/25 18:00 05/23/25 05:34 5 MG Lactulose 30 ml BID NG 05/21/25 10:00 05/23/25 09:52 30 ML Ceftriaxone Sodium 50 ml @ 100 mls/hr DAILY@09 IV 05/21/25 09:00 05/23/25 09:52 100 MLS/HR Fat Emulsion Intravenous 50 ml/ Potassium Phosphate 44 meq/ Calcium Gluconate 9.3 meq/Magnesium Sulfate 32 meq/ Multivitamins 10 ml/Chromium/ Copper/Manganese/ Zinc 1 ml/ Potassium Acetate 30 meq/Amino Acids/Dextrose/ Purified Water 1,314 ml @ 54 mls/hr [id number] IV 05/22/25 22:00 05/23/25 21:59 05/22/25 21:20 54 MLS/HR Labetalol HCl 10 mg Q2HPRN PRN IV 05/22/25 13:45 05/22/25 17:49 10 MG Fentanyl Citrate 250 ml @ 2.5 mls/hr Q24H IV 05/22/25 23:15 05/22/25 23:26 2.5 MLS/HR Norepinephrine Bitartrate 250 ml @ 3.75 mls/hr Q24H IV 05/23/25 03:30 05/23/25 03:35 3.75 MLS/HR Propofol 100 ml @ 1.563 mls/ hr Q24H IV 05/23/25 03:30 05/23/25 04:50 1.563 MLS/HR Potassium Phosphate 11 meq/ Calcium Gluconate 9.3 meq/Magnesium Sulfate 32 meq/ Multivitamins 10 ml/Chromium/ Copper/Manganese/ Zinc 1 ml/Amino Acids/Dextrose/ Purified Water 1,241.5 ml @ 50 mls/hr [id number] IV 05/23/25 22:00 05/24/25 21:59 Laboratory Results Laboratory Tests 05/23/25 02:27 Chemistry Test 05/23/25 02:27 Albumin 2.9 g/dL (3.2-4.8) L Calcium Level 7.7 mg/dL (8.7-10.4) L Magnesium Level 2.2 mg/dL (1.6-2.6) Phosphorus Level 3.8 mg/dL (2.4-5.1) Total Protein 5.7 g/dL (5.7-8.2) LFT Test 05/23/25 02:27 Alanine Aminotransferase (ALT) 26 U/L (7-40) Alkaline Phosphatase 105 U/L (46-116) Aspartate Amino Transferase (AST) 23 U/L (13-40) Total Bilirubin 0.4 mg/dL (0.2-1.0) Urinalysis Test 04/15/25 15:45 05/11/25 14:35 Urine Amorphous Crystals Few /hpf (None Seen) Urine Hyaline Casts Few /lpf (0 - 2) Urine Mucus Few (None Seen) Urine Color Light-yellow (Yellow) Urine Clarity Clear (Clear) Urine pH 7.0 (5.0-9.0) Urine Specific [place] 1.021 (1.001-1.035) Urine Protein Negative (Negative) Urine Ketones Negative (Negative) Urine Blood 1+ /uL (Negative) H Urine Nitrite Negative (Negative) Urine Bilirubin Negative (Negative) Urine Urobilinogen Normal mg/dL (Negative) Urine Leukocyte Esterase Negative /uL (Negative) Urine RBC 55 /hpf (0 - 4) Urine Microscopic WBC 1 /HPF (0-5) Urine Squamous Epithelial Cells Few /hpf (<5) Urine Bacteria None seen /hpf (None Seen) Urine Glucose Normal mg/dL (Normal) Blood Gas Results Test 05/22/25 21:50 05/22/25 23:45 05/23/25 08:06 Arterial Blood pH 7.020 (7.350-7.450) 7.406 (7.350-7.450) 7.394 (7.350-7.450) FiO2 % 100.0 100.0 30.0 Microbiology Microbiology Date/Time Source Procedure Growth Status 05/16/25 13:14 Urine - Grewal Port Urine Culture - Final Complete 05/09/25 11:22 Blood Blood Culture - Final NO GROWTH AFTER 5 DAYS OF INCUBATION. Complete 05/02/25 20:30 Sputum Gram Stain - Final Complete 05/02/25 20:30 Sputum Respiratory Culture - Final Complete 05/02/25 00:00 Nose MRSA Screen - Final Complete 04/30/25 14:30 Pleural Fluid Gram Stain - Final Complete 04/30/25 14:30 Pleural Fluid Body Fluid Culture - Final Complete Labs and/or images reviewed: Labs reviewed by me, Image(s) reviewed by me Assessment/Plan Assessment/Plan Impression: -choledocholithiasis -acute pancreatitis -small-bowel obstruction -dementia -cachexia -sepsis -COPD -GERD -Post op delirium -Accelerated HTN -A. fib Plan: Events: Patient had hypercarbic respiratory failure yesterday evening requiring re-intubation. Patient also somewhat hypotensive placed back on norepinephrine infusion. -repeat KUB. If no signs of gastric or bowel distention, clamp NG tube and possible introduction of clear liquids today -continue Reglan, add lactulose via NG tube -Continue TPN, IV fluid -Continue current abx -PPI -full-dose anticoagulation -continue Xopenex, ipratropium. Stop Mucomyst -repeat labs and chest x-ray in a.m. -long discussion made with the patient's [id number] regarding plan of care which includes tracheostomy versus compassionate extubation. She states that she will discuss with the family over the weekend. Critical care time spent with patient discussing and formulating plan of care: 90 minutes. This does not include time spent performing procedures. This medical document was created using an electronic medical record system with [employer] dictation system. Although this document has been carefully reviewed, there may still be some phonetic and typographical errors. These areas are purely typographical due to imperfections of the software programs, and do not reflect any compromise in the patient's medical care. Plan discussed with: Patient, Other (RN, [id number]) My Orders Orders - JAYDEN HILL NP Procedure Category Date Status Time * Swallow Request ST 05/22/25 Transmitted 13:45 Labetalol Hcl PHA 05/22/25 In Process (Labetalol Hcl) 13:45 Abg W/ Co-Ox RT 05/23/25 Logged 05:57 Date of Service: May 23, 2025 Billing Provider: JAYDEN HILL NP Common Visit Codes: 45799-PVMJCTWO CARE 30-74 MIN, 47540-VSLXMPLQ CARE-EACH +30MIN JAYDEN HILL NP May 23, 2025 12:38
--- NOTE | 2025-05-23 13:54 | DVHPN2 ---
Progress Note - Dictate Date Seen: May 23, 2025 Medical Necessity Reason Pt with a Central, PICC or Fol: Yes The following are medically ne: PICC Line, Grewal Catheter vital signs Vital Sign Date Time Temp Pulse Resp B/P (MAP) Pulse Ox O2 Delivery O2 Flow Rate FiO2 05/23/25 12:27 67 19 105/3 (37) 98 40 05/23/25 12:00 Mechanical Ventilator+ 30 05/23/25 08:00 98.4 98.4 Total Intake and Output 05/22/25 05/22/25 05/23/25 15:00 23:00 07:00 Intake Total 830 ml 747 ml 807.563 ml Output Total 850 ml 600 ml Balance 830 ml -103 ml 207.563 ml medications Current Medications Medications Dose Ordered Sig/Gregory Route Start Time Stop Time Status Last Admin Dose Admin Pantoprazole Sodium 40 mg DAILY IV 04/16/25 10:00 05/23/25 09:52 40 MG Amino Acids 0 ml @ 0 mls/hr PER PHARMACY IV 04/18/25 17:45 Sodium Chloride 10 ml QSHIFT@,22 IV 04/21/25 22:00 05/23/25 09:52 10 ML Albuterol 2.5 mg Q3HPRN PRN NEB 04/24/25 16:15 05/15/25 14:26 2.5 MG Diagnostic Test (Pha) 1 strip Q6HR 04/30/25 12:00 05/23/25 12:43 1 STRIP Insulin Human Regular FOLLOW SLIDING SCALE Q6HR SC 04/30/25 12:00 05/22/25 23:32 4 UNITS Dextrose 50 ml UD IV 04/30/25 09:00 05/09/25 00:20 50 ML Lidocaine 1 patch DAILY TOP 04/30/25 10:30 05/17/25 08:26 1 PATCH Morphine Sulfate 1 mg Q6HP PRN IV 04/30/25 10:30 05/02/25 17:58 1 MG Metoprolol Tartrate 2.5 mg Q4HR PRN IV 04/30/25 11:30 05/22/25 14:04 2.5 MG Acetylcysteine 100 mg Q4HR NEB 05/05/25 10:00 UNV Enoxaparin Sodium 50 mg Q12HR SC 05/07/25 22:00 05/23/25 09:51 50 MG Acetaminophen 650 mg Q6HP PRN NM 05/09/25 10:30 Vancomycin HCl 250 ml @ 200 mls/hr Q12H IV 05/09/25 18:00 Cancel Dextrose/Sodium Chloride 1,000 ml @ 30 mls/hr Q24H IV 05/10/25 18:15 05/22/25 18:15 30 MLS/HR Levalbuterol HCl 0.625 mg Q8HR NEB 05/11/25 14:00 05/23/25 13:48 0.625 MG Ipratropium [place] 0.5 mg Q8HR NEB 05/11/25 14:00 05/23/25 13:48 0.5 MG Potassium Acetate 40 meq/Potassium Phosphate 35 meq/ Calcium Gluconate 6.975 meq/ Magnesium Sulfate 26 meq/ Multivitamins 10 ml/Chromium/ Copper/Manganese/ Zinc 1 ml/Amino Acids/Dextrose 1,160.4545 ml @ 48.6 mls/hr [id number] IV 05/14/25 22:00 05/15/25 21:59 Cancel Metoclopramide HCl 5 mg Q6HR IV 05/20/25 18:00 05/23/25 12:43 5 MG Lactulose 30 ml BID NG 05/21/25 10:00 05/23/25 09:52 30 ML Ceftriaxone Sodium 50 ml @ 100 mls/hr DAILY@09 IV 05/21/25 09:00 05/23/25 09:52 100 MLS/HR Fat Emulsion Intravenous 50 ml/ Potassium Phosphate 44 meq/ Calcium Gluconate 9.3 meq/Magnesium Sulfate 32 meq/ Multivitamins 10 ml/Chromium/ Copper/Manganese/ Zinc 1 ml/ Potassium Acetate 30 meq/Amino Acids/Dextrose/ Purified Water 1,314 ml @ 54 mls/hr [id number] IV 05/22/25 22:00 05/23/25 21:59 05/22/25 21:20 54 MLS/HR Labetalol HCl 10 mg Q2HPRN PRN IV 05/22/25 13:45 05/22/25 17:49 10 MG Fentanyl Citrate 250 ml @ 2.5 mls/hr Q24H IV 05/22/25 23:15 05/22/25 23:26 2.5 MLS/HR Norepinephrine Bitartrate 250 ml @ 3.75 mls/hr Q24H IV 05/23/25 03:30 05/23/25 03:35 3.75 MLS/HR Propofol 100 ml @ 1.563 mls/ hr Q24H IV 05/23/25 03:30 05/23/25 04:50 1.563 MLS/HR Potassium Phosphate 11 meq/ Calcium Gluconate 9.3 meq/Magnesium Sulfate 32 meq/ Multivitamins 10 ml/Chromium/ Copper/Manganese/ Zinc 1 ml/Amino Acids/Dextrose/ Purified Water 1,241.5 ml @ 50 mls/hr [id number] IV 05/23/25 22:00 05/24/25 21:59 laboratory and microbiology Laboratory Tests 05/23/25 02:27 Test 05/23/25 02:27 Range/Units Serum Glucose 118 H 74-106 mg/dL Assessment/Plan Impression Acute hypoxemic respiratory failure Lung collapse Pneumonia Atelectasis SBO Patient seen and examined in ICU Events pt re-intubated on mech ventilation min secretions S/p sigmoidoscopy No evidence of obstruction noted Labs and imaging reviewed ABG reviewed Management sedation per protocol ac volume control vent support adjust daily abg's and CXR Continue antibiotics F/u cultures Bronchodilators Monitor renal function Monitor electrolytes Supplement as needed F/u general surgery DVT prophylaxis may need LTAC Critical care time 35 minutes Dietary Evaluation Review Recommendations by RD: PPN/TPN Comments: 1) Increase TPN to meet at least 75% estimated daily needs 2) Advance to cardiac diet when medically feasible 3) Follow-up with gastroenterology and neurology 4) Continue to monitor I&O, labs, and skin integrity Expected Outcomes/Goals: 1) nutrition support to meet at least 75% estimated daily needs 2) labs to improve 3) diet to advance 4) gradual wt gain 5) f/u in 2-3 days Plan discussed with: Other (rn) BRUNO GOLDMAN MD May 23, 2025 13:54
--- NOTE | 2025-05-23 14:28 | DVHPN2 ---
Progress Note Date Seen: May 23, 2025 Medical Necessity Reason Pt with a Central, PICC or Fol: Yes The following are medically ne: PICC Line, Grewal Catheter Objective vital signs Vital Sign Date Time Temp Pulse Resp B/P (MAP) Pulse Ox O2 Delivery O2 Flow Rate FiO2 05/23/25 13:49 64 19 98/36 (56) 98 30 05/23/25 12:00 Mechanical Ventilator+ 30 05/23/25 08:00 98.4 98.4 Total Intake and Output 05/22/25 05/22/25 05/23/25 15:00 23:00 07:00 Intake Total 830 ml 747 ml 807.563 ml Output Total 850 ml 600 ml Balance 830 ml -103 ml 207.563 ml medications Current Medications Medications Dose Ordered Sig/Gregory Route Start Time Stop Time Status Last Admin Dose Admin Pantoprazole Sodium 40 mg DAILY IV 04/16/25 10:00 05/23/25 09:52 40 MG Amino Acids 0 ml @ 0 mls/hr PER PHARMACY IV 04/18/25 17:45 Sodium Chloride 10 ml QSHIFT@10,22 IV 04/21/25 22:00 05/23/25 09:52 10 ML Albuterol 2.5 mg Q3HPRN PRN NEB 04/24/25 16:15 05/15/25 14:26 2.5 MG Diagnostic Test (Pha) 1 strip Q6HR 04/30/25 12:00 05/23/25 12:43 1 STRIP Insulin Human Regular FOLLOW SLIDING SCALE Q6HR SC 04/30/25 12:00 05/22/25 23:32 4 UNITS Dextrose 50 ml UD IV 04/30/25 09:00 05/09/25 00:20 50 ML Lidocaine 1 patch DAILY TOP 04/30/25 10:30 05/17/25 08:26 1 PATCH Morphine Sulfate 1 mg Q6HP PRN IV 04/30/25 10:30 05/02/25 17:58 1 MG Metoprolol Tartrate 2.5 mg Q4HR PRN IV 04/30/25 11:30 05/22/25 14:04 2.5 MG Acetylcysteine 100 mg Q4HR NEB 05/05/25 10:00 UNV Enoxaparin Sodium 50 mg Q12HR SC 05/07/25 22:00 05/23/25 09:51 50 MG Acetaminophen 650 mg Q6HP PRN [place] 05/09/25 10:30 Vancomycin HCl 250 ml @ 200 mls/hr Q12H IV 05/09/25 18:00 Cancel Dextrose/Sodium Chloride 1,000 ml @ 30 mls/hr Q24H IV 05/10/25 18:15 05/22/25 18:15 30 MLS/HR Levalbuterol HCl 0.625 mg Q8HR NEB 05/11/25 14:00 05/23/25 13:48 0.625 MG Ipratropium [place] 0.5 mg Q8HR NEB 05/11/25 14:00 05/23/25 13:48 0.5 MG Potassium Acetate 40 meq/Potassium Phosphate 35 meq/ Calcium Gluconate 6.975 meq/ Magnesium Sulfate 26 meq/ Multivitamins 10 ml/Chromium/ Copper/Manganese/ Zinc 1 ml/Amino Acids/Dextrose 1,160.4545 ml @ 48.6 mls/hr [id number] IV 05/14/25 22:00 05/15/25 21:59 Cancel Metoclopramide HCl 5 mg Q6HR IV 05/20/25 18:00 05/23/25 12:43 5 MG Lactulose 30 ml BID NG 05/21/25 10:00 05/23/25 09:52 30 ML Ceftriaxone Sodium 50 ml @ 100 mls/hr DAILY@09 IV 05/21/25 09:00 05/23/25 09:52 100 MLS/HR Fat Emulsion Intravenous 50 ml/ Potassium Phosphate 44 meq/ Calcium Gluconate 9.3 meq/Magnesium Sulfate 32 meq/ Multivitamins 10 ml/Chromium/ Copper/Manganese/ Zinc 1 ml/ Potassium Acetate 30 meq/Amino Acids/Dextrose/ Purified Water 1,314 ml @ 54 mls/hr [id number] IV 05/22/25 22:00 05/23/25 21:59 05/22/25 21:20 54 MLS/HR Labetalol HCl 10 mg Q2HPRN PRN IV 05/22/25 13:45 05/22/25 17:49 10 MG Fentanyl Citrate 250 ml @ 2.5 mls/hr Q24H IV 05/22/25 23:15 05/22/25 23:26 2.5 MLS/HR Norepinephrine Bitartrate 250 ml @ 3.75 mls/hr Q24H IV 05/23/25 03:30 05/23/25 03:35 3.75 MLS/HR Propofol 100 ml @ 1.563 mls/ hr Q24H IV 05/23/25 03:30 05/23/25 04:50 1.563 MLS/HR Potassium Phosphate 11 meq/ Calcium Gluconate 9.3 meq/Magnesium Sulfate 32 meq/ Multivitamins 10 ml/Chromium/ Copper/Manganese/ Zinc 1 ml/Amino Acids/Dextrose/ Purified Water 1,241.5 ml @ 50 mls/hr [id number] IV 05/23/25 22:00 05/24/25 21:59 laboratory and microbiology Laboratory Tests 05/23/25 02:27 Test 05/23/25 02:27 Range/Units Serum Glucose 118 H 74-106 mg/dL Microbiology Date/Time Source Procedure Growth Status 05/16/25 13:14 Urine - Grewal Port Urine Culture - Final Complete 05/09/25 11:22 Blood Blood Culture - Final NO GROWTH AFTER 5 DAYS OF INCUBATION. Complete 05/02/25 20:30 Sputum Gram Stain - Final Complete 05/02/25 20:30 Sputum Respiratory Culture - Final Complete 05/02/25 00:00 Nose MRSA Screen - Final Complete 04/30/25 14:30 Pleural Fluid Gram Stain - Final Complete 04/30/25 14:30 Pleural Fluid Body Fluid Culture - Final Complete Problem List/Assessment/Plan Problem List/Assessment/Plan AFEBRILE VSS REINTUBATED LAST NIGHT ABD SOFT NON DISTENDED BM + CONTINUE SUPPORTIVE CARE FAMILY AWARE OF PT CONDITION NURSE AT BEDSIDE ONGOING PULM EVAL UNCLAMP NG 4 HRS CONTINUE CLOSE OBSERVATION Plan discussed with: Other Dietary Evaluation Review Recommendations by RD: PPN/TPN Comments: 1) Increase TPN to meet at least 75% estimated daily needs 2) Advance to cardiac diet when medically feasible 3) Follow-up with gastroenterology and neurology 4) Continue to monitor I&O, labs, and skin integrity Expected Outcomes/Goals: 1) nutrition support to meet at least 75% estimated daily needs 2) labs to improve 3) diet to advance 4) gradual wt gain 5) f/u in 2-3 days GLORIA MCNEAL MD May 23, 2025 14:28
--- NOTE | 2025-05-23 15:23 | DVHPN2 ---
Progress Note - Dictate Date Seen: May 23, 2025 Medical Necessity Reason Pt with a Central, PICC or Fol: Yes The following are medically ne: PICC Line, Grewal Catheter Subjective Patient required to be reintubated last night due to hypoxic respiratory failure Currently NG tube is connected to low intermittent suction Patient is getting IV TPN Three bowel movements were recorded vital signs Vital Sign Date Time Temp Pulse Resp B/P (MAP) Pulse Ox O2 Delivery O2 Flow Rate FiO2 05/23/25 14:30 66 18 102/36 (58) 99 05/23/25 13:49 30 05/23/25 12:00 97.7 97.7 05/23/25 12:00 Mechanical Ventilator+ 30 Total Intake and Output 05/22/25 05/22/25 05/23/25 15:00 23:00 07:00 Intake Total 830 ml 747 ml 807.563 ml Output Total 850 ml 600 ml Balance 830 ml -103 ml 207.563 ml medications Current Medications Medications Dose Ordered Sig/Gregory Route Start Time Stop Time Status Last Admin Dose Admin Pantoprazole Sodium 40 mg DAILY IV 04/16/25 10:00 05/23/25 09:52 40 MG Amino Acids 0 ml @ 0 mls/hr PER PHARMACY IV 04/18/25 17:45 Sodium Chloride 10 ml QSHIFT@10,22 IV 04/21/25 22:00 05/23/25 09:52 10 ML Albuterol 2.5 mg Q3HPRN PRN NEB 04/24/25 16:15 05/15/25 14:26 2.5 MG Diagnostic Test (Pha) 1 strip Q6HR 04/30/25 12:00 05/23/25 12:43 1 STRIP Insulin Human Regular FOLLOW SLIDING SCALE Q6HR SC 04/30/25 12:00 05/22/25 23:32 4 UNITS Dextrose 50 ml UD IV 04/30/25 09:00 05/09/25 00:20 50 ML Lidocaine 1 patch DAILY TOP 04/30/25 10:30 05/17/25 08:26 1 PATCH Morphine Sulfate 1 mg Q6HP PRN IV 04/30/25 10:30 05/02/25 17:58 1 MG Metoprolol Tartrate 2.5 mg Q4HR PRN IV 04/30/25 11:30 05/22/25 14:04 2.5 MG Acetylcysteine 100 mg Q4HR NEB 05/05/25 10:00 UNV Enoxaparin Sodium 50 mg Q12HR SC 05/07/25 22:00 05/23/25 09:51 50 MG Acetaminophen 650 mg Q6HP PRN [place] 05/09/25 10:30 Vancomycin HCl 250 ml @ 200 mls/hr Q12H IV 05/09/25 18:00 Cancel Dextrose/Sodium Chloride 1,000 ml @ 30 mls/hr Q24H IV 05/10/25 18:15 05/22/25 18:15 30 MLS/HR Levalbuterol HCl 0.625 mg Q8HR NEB 05/11/25 14:00 05/23/25 13:48 0.625 MG Ipratropium [place] 0.5 mg Q8HR NEB 05/11/25 14:00 05/23/25 13:48 0.5 MG Potassium Acetate 40 meq/Potassium Phosphate 35 meq/ Calcium Gluconate 6.975 meq/ Magnesium Sulfate 26 meq/ Multivitamins 10 ml/Chromium/ Copper/Manganese/ Zinc 1 ml/Amino Acids/Dextrose 1,160.4545 ml @ 48.6 mls/hr [id number] IV 05/14/25 22:00 05/15/25 21:59 Cancel Metoclopramide HCl 5 mg Q6HR IV 05/20/25 18:00 05/23/25 12:43 5 MG Lactulose 30 ml BID NG 05/21/25 10:00 05/23/25 09:52 30 ML Ceftriaxone Sodium 50 ml @ 100 mls/hr DAILY@09 IV 05/21/25 09:00 05/23/25 09:52 100 MLS/HR Fat Emulsion Intravenous 50 ml/ Potassium Phosphate 44 meq/ Calcium Gluconate 9.3 meq/Magnesium Sulfate 32 meq/ Multivitamins 10 ml/Chromium/ Copper/Manganese/ Zinc 1 ml/ Potassium Acetate 30 meq/Amino Acids/Dextrose/ Purified Water 1,314 ml @ 54 mls/hr [id number] IV 05/22/25 22:00 05/23/25 21:59 05/22/25 21:20 54 MLS/HR Labetalol HCl 10 mg Q2HPRN PRN IV 05/22/25 13:45 05/22/25 17:49 10 MG Fentanyl Citrate 250 ml @ 2.5 mls/hr Q24H IV 05/22/25 23:15 05/22/25 23:26 2.5 MLS/HR Norepinephrine Bitartrate 250 ml @ 3.75 mls/hr Q24H IV 05/23/25 03:30 05/23/25 03:35 3.75 MLS/HR Propofol 100 ml @ 1.563 mls/ hr Q24H IV 05/23/25 03:30 05/23/25 04:50 1.563 MLS/HR Potassium Phosphate 11 meq/ Calcium Gluconate 9.3 meq/Magnesium Sulfate 32 meq/ Multivitamins 10 ml/Chromium/ Copper/Manganese/ Zinc 1 ml/Amino Acids/Dextrose/ Purified Water 1,241.5 ml @ 50 mls/hr [id number] IV 05/23/25 22:00 05/24/25 21:59 objective General Appearance: Intubated sedated HEENT: PERRLA, EOMI Lungs: Decreased breath sound on left lower lung. High-flow at 50% FiO2 Cardiovascular: Normal S1, Normal S2 Abdomen: No tenderness, No hepatospenomegaly, hypoactive bowel sounds, surgical wound dry Genitourinary: No Apparent Abnormalities (Grewal catheter) Musculoskeletal: Normal sensory function, Normal motor function Extremities: No edema, Normal pulses, No tenderness/swelling laboratory and microbiology Laboratory Tests 05/23/25 02:27 Test 05/23/25 02:27 Range/Units Serum Glucose 118 H 74-106 mg/dL Problems(with codes): (1) Diabetes (2) Ileus (3) Choledocholithiasis (4) Urinary tract infection (5) Acute respiratory distress (6) Small bowel obstruction Prognosis Plan Continue IV PPI NG tube to low intermittent suction Continue IV TPN If the gastric residuals are minimal then we can consider starting her on trickle tube feedings Overall prognosis remains guarded because of pulmonary compromise Dietary Evaluation Review Recommendations by RD: PPN/TPN Comments: 1) Increase TPN to meet at least 75% estimated daily needs 2) Advance to cardiac diet when medically feasible 3) Follow-up with gastroenterology and neurology 4) Continue to monitor I&O, labs, and skin integrity Expected Outcomes/Goals: 1) nutrition support to meet at least 75% estimated daily needs 2) labs to improve 3) diet to advance 4) gradual wt gain 5) f/u in 2-3 days Plan discussed with: Other (ICU Nurse) JIL MCNEAL MD May 23, 2025 15:23
[2025-05-23] MEDS: NOREPINEPHRINE 8 MG/250ML KIT 250 ML IV ONE (16:42)
[2025-05-23] MEDS: PROPOFOL 100 ML IV ONE (17:00)
[2025-05-23] MEDS: TPN PER PHARMACY IV NR (20:58)
[2025-05-24] VITALS (106 sets, daily range): BP systolic 98–168; BP diastolic 38–96; PULSE 67–104; RESP 10–27; TEMP 97.9–98.4; O2SAT 92–100
[2025-05-24 04:09] LABS: Hemoglobin 8.2 g/dL (12.2-16.2); Mean Corpuscular Hemoglobin 33.4 pg (28.0-32.0); Nucleated Red Blood Cells % 0.1 %
[2025-05-24 04:11] LABS: Hematocrit 25.3 % (36.0-46.0); Mean Corpuscular Volume 102.4 fL (80.0-100.0)
[2025-05-24 04:32] LABS: Alanine Aminotransferase 28 U/L (7-40); Alkaline Phosphatase 95 U/L (46-116); Anion Gap 11 (5-15); BUN/Creatinine Ratio 86.7 (10.0-20.0); Carbon Dioxide 24 mmol/L (20-31); Magnesium 2.4 mg/dL (1.6-2.6); Potassium 4.3 mmol/L (3.5-5.1); Sodium 142 mmol/L (136-145)
[2025-05-24 04:35] LABS: Blood Urea Nitrogen 39 mg/dL (9-23); Calcium 7.5 mg/dL (8.7-10.4); Chloride 107 mmol/L (98-107); Glucose 128 mg/dL (74-106)
[2025-05-24 04:36] LABS: Albumin 2.6 g/dL (3.2-4.8); Bilirubin, Total 0.2 mg/dL (0.2-1.0); Total Protein 4.9 g/dL (5.7-8.2)
--- NOTE | 2025-05-24 06:50 | DVH ---
CHEST RADIOGRAPH Indication: Ventilated Technique: Single frontal view of the chest was obtained COMPARISON: XY CHEST PORTABLE on DOS: 05/22/25, XY CHEST PORTABLE on DOS: 05/21/25, XY CHEST PORTABLE on DOS: 05/20/25, XY CHEST PORTABLE on DOS: 05/19/25, XY CHEST PORTABLE on DOS: 05/17/25 FINDINGS: Lines and Tubes: Endotracheal tube, enteric catheter in satisfactory position. Right PICC in satisfactory position. Lungs: Unchanged pulmonary vascular congestion. Pleura: Unchanged small left pleural effusion. No pneumothorax. Cardiomediastinal contours: Unremarkable Bones: Unremarkable IMPRESSION: Lines and tubes in satisfactory position. No significant interval change.
[2025-05-24 07:51] LABS: Base Excess -3.6 mmol/L (-2.0-3.0)
--- NOTE | 2025-05-24 08:33 | DVHPN2 ---
Reviewed: Care Plan, H&P, Labs, Medications Changes from previous H/P or p: No Changes General: Per HPI Objective Vitals Vital Signs Date Time Temp Pulse Resp B/P (MAP) Pulse Ox O2 Delivery O2 Flow Rate FiO2 05/24/25 07:00 80 17 109/43 (65) 97 05/24/25 06:00 Mechanical Ventilator+ 30 70 70 05/24/25 04:00 97.9 97.9 Intake/Output Intake and Output 05/24/25 07:00 Intake Total 2825.445 ml Output Total 1260 ml Balance 1565.445 ml Intake Oral 80 ml IV Total 2745.445 ml Output Urine Total 1200 ml Gastric Drainage Total 60 ml # Bowel Movements 1 General Appearance: moderate distress, Other (Intubated and sedated) HEENT: Atraumatic, PERRLA, Other Lungs: Clear to auscultation, Normal air movement, Other (Mechanical ventilation) Cardiovascular: Normal S1, Normal S2, Other (Fibrillation with controlled rate) Abdomen: No tenderness, No hepatospenomegaly, Other (Hypoactive bowel sounds.) Genitourinary: No Apparent Abnormalities (Grewal catheter) Musculoskeletal: Normal sensory function, Normal motor function Extremities: No edema, Normal pulses, No tenderness/swelling Neuro: Cranial nerves 3-12 NL, Other Skin: Dry, Intact, Wounds, Other (Surgical wound D&I) Psych/Mental Status: Mood NL Medications Current Medications Medications Dose Ordered Sig/Gregory Route Start Time Stop Time Status Last Admin Dose Admin Pantoprazole Sodium 40 mg DAILY IV 04/16/25 10:00 05/23/25 09:52 40 MG Amino Acids 0 ml @ 0 mls/hr PER PHARMACY IV 04/18/25 17:45 Sodium Chloride 10 ml QSHIFT@10,22 IV 04/21/25 22:00 05/23/25 21:44 10 ML Albuterol 2.5 mg Q3HPRN PRN NEB 04/24/25 16:15 05/15/25 14:26 2.5 MG Diagnostic Test (Pha) 1 strip Q6HR 04/30/25 12:00 05/24/25 05:28 1 STRIP Insulin Human Regular FOLLOW SLIDING SCALE Q6HR SC 04/30/25 12:00 05/24/25 05:28 2 UNITS Dextrose 50 ml UD IV 04/30/25 09:00 05/09/25 00:20 50 ML Lidocaine 1 patch DAILY TOP 04/30/25 10:30 05/17/25 08:26 1 PATCH Morphine Sulfate 1 mg Q6HP PRN IV 04/30/25 10:30 05/02/25 17:58 1 MG Metoprolol Tartrate 2.5 mg Q4HR PRN IV 04/30/25 11:30 05/22/25 14:04 2.5 MG Acetylcysteine 100 mg Q4HR NEB 05/05/25 10:00 UNV Enoxaparin Sodium 50 mg Q12HR SC 05/07/25 22:00 05/23/25 21:44 50 MG Acetaminophen 650 mg Q6HP PRN [place] 05/09/25 10:30 Vancomycin HCl 250 ml @ 200 mls/hr Q12H IV 05/09/25 18:00 Cancel Dextrose/Sodium Chloride 1,000 ml @ 30 mls/hr Q24H IV 05/10/25 18:15 05/23/25 17:09 30 MLS/HR Levalbuterol HCl 0.625 mg Q8HR NEB 05/11/25 14:00 05/24/25 05:51 0.625 MG Ipratropium [place] 0.5 mg Q8HR NEB 05/11/25 14:00 05/24/25 05:51 0.5 MG Potassium Acetate 40 meq/Potassium Phosphate 35 meq/ Calcium Gluconate 6.975 meq/ Magnesium Sulfate 26 meq/ Multivitamins 10 ml/Chromium/ Copper/Manganese/ Zinc 1 ml/Amino Acids/Dextrose 1,160.4545 ml @ 48.6 mls/hr [id number] IV 05/14/25 22:00 05/15/25 21:59 Cancel Metoclopramide HCl 5 mg Q6HR IV 05/20/25 18:00 05/24/25 05:28 5 MG Lactulose 30 ml BID NG 05/21/25 10:00 05/23/25 21:43 30 ML Ceftriaxone Sodium 50 ml @ 100 mls/hr DAILY@09 IV 05/21/25 09:00 05/23/25 09:52 100 MLS/HR Labetalol HCl 10 mg Q2HPRN PRN IV 05/22/25 13:45 05/22/25 17:49 10 MG Fentanyl Citrate 250 ml @ 2.5 mls/hr Q24H IV 05/22/25 23:15 05/23/25 19:11 10 MLS/HR Norepinephrine Bitartrate 250 ml @ 3.75 mls/hr Q24H IV 05/23/25 03:30 05/24/25 02:59 15 MLS/HR Propofol 100 ml @ 1.563 mls/ hr Q24H IV 05/23/25 03:30 05/24/25 00:53 7.815 MLS/HR Potassium Phosphate 11 meq/ Calcium Gluconate 9.3 meq/Magnesium Sulfate 32 meq/ Multivitamins 10 ml/Chromium/ Copper/Manganese/ Zinc 1 ml/Amino Acids/Dextrose/ Purified Water 1,241.5 ml @ 50 mls/hr [id number] IV 05/23/25 22:00 05/24/25 21:59 05/23/25 20:58 50 MLS/HR Laboratory Results Laboratory Tests 05/24/25 03:40 Chemistry Test 05/24/25 03:40 Albumin 2.6 g/dL (3.2-4.8) L Calcium Level 7.5 mg/dL (8.7-10.4) L Magnesium Level 2.4 mg/dL (1.6-2.6) Phosphorus Level 4.4 mg/dL (2.4-5.1) Total Protein 4.9 g/dL (5.7-8.2) L LFT Test 05/24/25 03:40 Alanine Aminotransferase (ALT) 28 U/L (7-40) Alkaline Phosphatase 95 U/L (46-116) Aspartate Amino Transferase (AST) 22 U/L (13-40) Total Bilirubin 0.2 mg/dL (0.2-1.0) Urinalysis Test 04/15/25 15:45 05/11/25 14:35 Urine Amorphous Crystals Few /hpf (None Seen) Urine Hyaline Casts Few /lpf (0 - 2) Urine Mucus Few (None Seen) Urine Color Light-yellow (Yellow) Urine Clarity Clear (Clear) Urine pH 7.0 (5.0-9.0) Urine Specific [place] 1.021 (1.001-1.035) Urine Protein Negative (Negative) Urine Ketones Negative (Negative) Urine Blood 1+ /uL (Negative) H Urine Nitrite Negative (Negative) Urine Bilirubin Negative (Negative) Urine Urobilinogen Normal mg/dL (Negative) Urine Leukocyte Esterase Negative /uL (Negative) Urine RBC 55 /hpf (0 - 4) Urine Microscopic WBC 1 /HPF (0-5) Urine Squamous Epithelial Cells Few /hpf (<5) Urine Bacteria None seen /hpf (None Seen) Urine Glucose Normal mg/dL (Normal) Blood Gas Results Test 05/24/25 07:11 Arterial Blood pH 7.365 (7.350-7.450) FiO2 % 30.0 Microbiology Microbiology Date/Time Source Procedure Growth Status 05/16/25 13:14 Urine - Grewal Port Urine Culture - Final Complete 05/09/25 11:22 Blood Blood Culture - Final NO GROWTH AFTER 5 DAYS OF INCUBATION. Complete 05/02/25 20:30 Sputum Gram Stain - Final Complete 05/02/25 20:30 Sputum Respiratory Culture - Final Complete 05/02/25 00:00 Nose MRSA Screen - Final Complete 04/30/25 14:30 Pleural Fluid Gram Stain - Final Complete 04/30/25 14:30 Pleural Fluid Body Fluid Culture - Final Complete Labs and/or images reviewed: Labs reviewed by me, Image(s) reviewed by me Assessment/Plan Assessment/Plan HPI: 89-year-old female presents for evaluation of abdominal pain. Patient with dementia noted by family members to be complaining of abdominal pain for the past two days. There is no nausea or vomiting. Family also reports worsening confusion from baseline. Past Medical History Dementia, COPD, GERD, asthma 05/07: Patient currently intubated and sedated. CPAP with adequate respiratory status. KUB without any signs of ileus. NG secretions 25 mL overnight. Discussed case with Dr. Clau Cui who is agreeable for CPAP after performing a repeat KUB after having NG tube taken off suction for 5 hours. 05/08: female here with SBO, patient had come to ICU after surgery and then extubated and downgraded to [facility], had to be reintubated due to aspiration pneumonia. Currently has NG tube on intermittent suction, overnight having 150 u bilious output. Surgery today planning for oral contrast CT. Good urine output without Lasix. Feeds is getting TPN. No sedation vacation, RASS-1 to - 2. Daily CPAP trials approximately 5 hours. Vital signs stable. We will continue primary hospitalist plan. 05/24: Patient was extubated and then reintubated 2nd time, this time due to hypercarbic respiratory failure. Currently patient on a.c. 16/4 100/30%/5, patient is breathing over the vent. Light sedation RASS-2 to -3. Patient wakes up easily when doing q.2h turns. Vitals stable. Currently on fentanyl 100, TPN 50, Levophed 8, Diprivan 25. Grewal with adequate urine output. Surgery and pulmonology recommending no extubation. We will discuss with pulmonology if we can continue trials CPAP trials for patients respiratory exercise. No extubation over the weekend. Impression: -choledocholithiasis -acute pancreatitis -small-bowel obstruction -dementia -cachexia -sepsis -COPD -GERD -Post op delirium -Accelerated HTN -A.fib Plan: -repeat KUB. If no signs of gastric or bowel distention, clamp NG tube and possible introduction of clear liquids today -continue Reglan, add lactulose via NG tube -Continue TPN, IV fluid -Continue current abx -PPI -full-dose anticoagulation -continue Xopenex, ipratropium. Stop Mucomyst -repeat labs and chest x-ray in a.m. -long discussion made with the patient's [id number] regarding plan of care which includes tracheostomy versus compassionate extubation. She states that she will discuss with the family over the weekend. Critical care time spent with patient discussing and formulating plan of care: 40 minutes. This does not include time spent performing procedures. Plan discussed with: Patient Date of Service: May 24, 2025 Billing Provider: LUDIVINA RIOS MD Common Visit Codes: [id number] CARE 30-74 MIN LUDIVINA RIOS MD May 24, 2025 08:33
--- NOTE | 2025-05-24 13:09 | DVHPN2 ---
Progress Note - Dictate Date Seen: May 24, 2025 Medical Necessity Reason Pt with a Central, PICC or Fol: Yes The following are medically ne: PICC Line, Grewal Catheter vital signs Vital Sign Date Time Temp Pulse Resp B/P (MAP) Pulse Ox O2 Delivery O2 Flow Rate FiO2 05/24/25 12:02 99 21 152/68 (96) 95 30 05/24/25 09:00 98.3 98.3 05/24/25 08:00 Mechanical Ventilator+ 30 Total Intake and Output 05/23/25 05/23/25 05/24/25 15:00 23:00 07:00 Intake Total 892.95 ml 999.975 ml 932.520 ml Output Total 500 ml 760 ml Balance 892.95 ml 499.975 ml 172.520 ml medications Current Medications Medications Dose Ordered Sig/Gregory Route Start Time Stop Time Status Last Admin Dose Admin Pantoprazole Sodium 40 mg DAILY IV 04/16/25 10:00 05/24/25 09:26 40 MG Amino Acids 0 ml @ 0 mls/hr PER PHARMACY IV 04/18/25 17:45 Sodium Chloride 10 ml QSHIFT@,22 IV 04/21/25 22:00 05/24/25 09:26 10 ML Albuterol 2.5 mg Q3HPRN PRN NEB 04/24/25 16:15 05/15/25 14:26 2.5 MG Diagnostic Test (Pha) 1 strip Q6HR 04/30/25 12:00 05/24/25 11:31 1 STRIP Insulin Human Regular FOLLOW SLIDING SCALE Q6HR SC 04/30/25 12:00 05/24/25 05:28 2 UNITS Dextrose 50 ml UD IV 04/30/25 09:00 05/09/25 00:20 50 ML Lidocaine 1 patch DAILY TOP 04/30/25 10:30 05/17/25 08:26 1 PATCH Morphine Sulfate 1 mg Q6HP PRN IV 04/30/25 10:30 05/02/25 17:58 1 MG Metoprolol Tartrate 2.5 mg Q4HR PRN IV 04/30/25 11:30 Hold 05/22/25 14:04 2.5 MG Acetylcysteine 100 mg Q4HR NEB 05/05/25 10:00 UNV Enoxaparin Sodium 50 mg Q12HR SC 05/07/25 22:00 05/24/25 09:25 50 MG Acetaminophen 650 mg Q6HP PRN [place] 05/09/25 10:30 Vancomycin HCl 250 ml @ 200 mls/hr Q12H IV 05/09/25 18:00 Cancel Dextrose/Sodium Chloride 1,000 ml @ 30 mls/hr Q24H IV 05/10/25 18:15 05/23/25 17:09 30 MLS/HR Levalbuterol HCl 0.625 mg Q8HR NEB 05/11/25 14:00 05/24/25 05:51 0.625 MG Ipratropium [place] 0.5 mg Q8HR NEB 05/11/25 14:00 05/24/25 05:51 0.5 MG Potassium Acetate 40 meq/Potassium Phosphate 35 meq/ Calcium Gluconate 6.975 meq/ Magnesium Sulfate 26 meq/ Multivitamins 10 ml/Chromium/ Copper/Manganese/ Zinc 1 ml/Amino Acids/Dextrose 1,160.4545 ml @ 48.6 mls/hr [id number] IV 05/14/25 22:00 05/15/25 21:59 Cancel Metoclopramide HCl 5 mg Q6HR IV 05/20/25 18:00 05/24/25 11:47 5 MG Lactulose 30 ml BID NG 05/21/25 10:00 05/24/25 09:26 30 ML Ceftriaxone Sodium 50 ml @ 100 mls/hr DAILY@09 IV 05/21/25 09:00 05/24/25 08:46 100 MLS/HR Labetalol HCl 10 mg Q2HPRN PRN IV 05/22/25 13:45 Hold 05/22/25 17:49 10 MG Fentanyl Citrate 250 ml @ 2.5 mls/hr Q24H IV 05/22/25 23:15 05/23/25 19:11 10 MLS/HR Norepinephrine Bitartrate 250 ml @ 3.75 mls/hr Q24H IV 05/23/25 03:30 05/24/25 02:59 15 MLS/HR Propofol 100 ml @ 1.563 mls/ hr Q24H IV 05/23/25 03:30 05/24/25 09:16 7.815 MLS/HR Potassium Phosphate 11 meq/ Calcium Gluconate 9.3 meq/Magnesium Sulfate 32 meq/ Multivitamins 10 ml/Chromium/ Copper/Manganese/ Zinc 1 ml/Amino Acids/Dextrose/ Purified Water 1,241.5 ml @ 50 mls/hr [id number] IV 05/23/25 22:00 05/24/25 21:59 05/23/25 20:58 50 MLS/HR Potassium Phosphate 4.4 meq/ Calcium Gluconate 11.625 meq/ Magnesium Sulfate 24 meq/ Multivitamins 10 ml/Chromium/ Copper/Manganese/ Zinc 1 ml/Amino Acids/Dextrose/ Purified Water 1,243 ml @ 51 mls/hr [id number] IV 05/24/25 22:00 05/25/25 21:59 Artificial Tears 1 drop Q2HP PRN EACHEYE 05/24/25 13:15 laboratory and microbiology Laboratory Tests 05/24/25 03:40 Test 05/24/25 03:40 Range/Units Serum Glucose 128 H 74-106 mg/dL Assessment/Plan Impression Acute hypoxemic respiratory failure Lung collapse Pneumonia Atelectasis SBO Patient seen and examined in ICU Events pt re-intubated on mech ventilation PEEP 5, FiO2 30% S/p sigmoidoscopy Labs and imaging reviewed ABG reviewed Management sedation per protocol ac volume control vent support adjust daily abg's and CXR Continue antibiotics F/u cultures Bronchodilators Monitor renal function Monitor electrolytes Supplement as needed F/u general surgery DVT prophylaxis Prognosis questionable may need LTAC Critical care time 35 minutes Dietary Evaluation Review Recommendations by RD: PPN/TPN Comments: 1) Increase TPN to meet at least 75% estimated daily needs 2) Advance to cardiac diet when medically feasible 3) Follow-up with gastroenterology and neurology 4) Continue to monitor I&O, labs, and skin integrity Expected Outcomes/Goals: 1) nutrition support to meet at least 75% estimated daily needs 2) labs to improve 3) diet to advance 4) gradual wt gain 5) f/u in 2-3 days Plan discussed with: Other (Rn) BRUNO GOLDMAN MD May 24, 2025 13:08
[2025-05-24] MEDS ORDERED: ARTIFICIAL TEARS 15ml EACHEYE PRN (13:15)
--- NOTE | 2025-05-24 13:46 | DVHPN2 ---
Progress Note Date Seen: May 24, 2025 Medical Necessity Reason Pt with a Central, PICC or Fol: Yes The following are medically ne: PICC Line, Grewal Catheter Objective vital signs Vital Sign Date Time Temp Pulse Resp B/P (MAP) Pulse Ox O2 Delivery O2 Flow Rate FiO2 05/24/25 13:30 96 15 129/59 (82) 99 05/24/25 12:02 30 05/24/25 12:00 Mechanical Ventilator+ 30 05/24/25 12:00 98.3 98.3 Total Intake and Output 05/23/25 05/23/25 05/24/25 15:00 23:00 07:00 Intake Total 892.95 ml 999.975 ml 932.520 ml Output Total 500 ml 760 ml Balance 892.95 ml 499.975 ml 172.520 ml medications Current Medications Medications Dose Ordered Sig/Gregory Route Start Time Stop Time Status Last Admin Dose Admin Pantoprazole Sodium 40 mg DAILY IV 04/16/25 10:00 05/24/25 09:26 40 MG Amino Acids 0 ml @ 0 mls/hr PER PHARMACY IV 04/18/25 17:45 Sodium Chloride 10 ml QSHIFT@, IV 04/21/25 22:00 05/24/25 09:26 10 ML Albuterol 2.5 mg Q3HPRN PRN NEB 04/24/25 16:15 05/15/25 14:26 2.5 MG Diagnostic Test (Pha) 1 strip Q6HR 04/30/25 12:00 05/24/25 11:31 1 STRIP Insulin Human Regular FOLLOW SLIDING SCALE Q6HR SC 04/30/25 12:00 05/24/25 05:28 2 UNITS Dextrose 50 ml UD IV 04/30/25 09:00 05/09/25 00:20 50 ML Lidocaine 1 patch DAILY TOP 04/30/25 10:30 05/17/25 08:26 1 PATCH Morphine Sulfate 1 mg Q6HP PRN IV 04/30/25 10:30 05/02/25 17:58 1 MG Metoprolol Tartrate 2.5 mg Q4HR PRN IV 04/30/25 11:30 Hold 05/22/25 14:04 2.5 MG Acetylcysteine 100 mg Q4HR NEB 05/05/25 10:00 UNV Enoxaparin Sodium 50 mg Q12HR SC 05/07/25 22:00 05/24/25 09:25 50 MG Acetaminophen 650 mg Q6HP PRN [place] 05/09/25 10:30 Vancomycin HCl 250 ml @ 200 mls/hr Q12H IV 05/09/25 18:00 Cancel Dextrose/Sodium Chloride 1,000 ml @ 30 mls/hr Q24H IV 05/10/25 18:15 05/23/25 17:09 30 MLS/HR Levalbuterol HCl 0.625 mg Q8HR NEB 05/11/25 14:00 05/24/25 05:51 0.625 MG Ipratropium [place] 0.5 mg Q8HR NEB 05/11/25 14:00 05/24/25 05:51 0.5 MG Potassium Acetate 40 meq/Potassium Phosphate 35 meq/ Calcium Gluconate 6.975 meq/ Magnesium Sulfate 26 meq/ Multivitamins 10 ml/Chromium/ Copper/Manganese/ Zinc 1 ml/Amino Acids/Dextrose 1,160.4545 ml @ 48.6 mls/hr [id number] IV 05/14/25 22:00 05/15/25 21:59 Cancel Metoclopramide HCl 5 mg Q6HR IV 05/20/25 18:00 05/24/25 11:47 5 MG Lactulose 30 ml BID NG 05/21/25 10:00 05/24/25 09:26 30 ML Ceftriaxone Sodium 50 ml @ 100 mls/hr DAILY@09 IV 05/21/25 09:00 05/24/25 08:46 100 MLS/HR Labetalol HCl 10 mg Q2HPRN PRN IV 05/22/25 13:45 Hold 05/22/25 17:49 10 MG Fentanyl Citrate 250 ml @ 2.5 mls/hr Q24H IV 05/22/25 23:15 05/23/25 19:11 10 MLS/HR Norepinephrine Bitartrate 250 ml @ 3.75 mls/hr Q24H IV 05/23/25 03:30 05/24/25 02:59 15 MLS/HR Propofol 100 ml @ 1.563 mls/ hr Q24H IV 05/23/25 03:30 05/24/25 09:16 7.815 MLS/HR Potassium Phosphate 11 meq/ Calcium Gluconate 9.3 meq/Magnesium Sulfate 32 meq/ Multivitamins 10 ml/Chromium/ Copper/Manganese/ Zinc 1 ml/Amino Acids/Dextrose/ Purified Water 1,241.5 ml @ 50 mls/hr [id number] IV 05/23/25 22:00 05/24/25 21:59 05/23/25 20:58 50 MLS/HR Potassium Phosphate 4.4 meq/ Calcium Gluconate 11.625 meq/ Magnesium Sulfate 24 meq/ Multivitamins 10 ml/Chromium/ Copper/Manganese/ Zinc 1 ml/Amino Acids/Dextrose/ Purified Water 1,243 ml @ 51 mls/hr [id number] IV 05/24/25 22:00 05/25/25 21:59 Artificial Tears 1 drop Q2HP PRN EACHEYE 05/24/25 13:15 laboratory and microbiology Laboratory Tests 05/24/25 03:40 Test 05/24/25 03:40 Range/Units Serum Glucose 128 H 74-106 mg/dL Microbiology Date/Time Source Procedure Growth Status 05/22/25 22:15 Sputum Gram Stain - Final Resulted 05/22/25 22:15 Sputum Respiratory Culture - Preliminary Resulted 05/16/25 13:14 Urine - G[place]al [place] Urine Culture - Final Complete 05/09/25 11:22 Blood Blood Culture - Final NO GROWTH AFTER 5 DAYS OF INCUBATION. Complete 05/02/25 00:00 Nose MRSA Screen - Final Complete 04/30/25 14:30 Pleural Fluid Gram Stain - Final Complete 04/30/25 14:30 Pleural Fluid Body Fluid Culture - Final Complete Problem List/Assessment/Plan Problem List/Assessment/Plan AFEBRILE VSS REMAINS INTUBATED ABD SOFT NON DISTENDED NO BM CONTINUE SUPPORTIVE CARE FAMILY AWARE OF PT CONDITION NURSE AT BEDSIDE ONGOING PULM EVAL CLAMP NG CONTINUE CLOSE OBSERVATION Plan discussed with: Other Dietary Evaluation Review Recommendations by RD: PPN/TPN Comments: 1) Increase TPN to meet at least 75% estimated daily needs 2) Advance to cardiac diet when medically feasible 3) Follow-up with gastroenterology and neurology 4) Continue to monitor I&O, labs, and skin integrity Expected Outcomes/Goals: 1) nutrition support to meet at least 75% estimated daily needs 2) labs to improve 3) diet to advance 4) gradual wt gain 5) f/u in 2-3 days GLORIA MCNEAL MD May 24, 2025 13:46
--- NOTE | 2025-05-24 19:02 | DVHPN2 ---
Progress Note - Dictate Date Seen: May 24, 2025 Medical Necessity Reason Pt with a Central, PICC or Fol: Yes The following are medically ne: PICC Line, Grewal Catheter Subjective Patient is intubated sedated due to hypoxic respiratory failure NG tube was clamped today Patient is getting IV TPN One bowel movement was recorded vital signs Vital Sign Date Time Temp Pulse Resp B/P (MAP) Pulse Ox O2 Delivery O2 Flow Rate FiO2 05/24/25 18:45 91 25 129/46 (73) 96 05/24/25 18:35 30 05/24/25 18:00 Mechanical Ventilator+ 30 05/24/25 16:00 98.4 98.4 Total Intake and Output 05/23/25 05/23/25 05/24/25 15:00 23:00 07:00 Intake Total 892.95 ml 999.975 ml 932.520 ml Output Total 500 ml 760 ml Balance 892.95 ml 499.975 ml 172.520 ml medications Current Medications Medications Dose Ordered Sig/Gregory Route Start Time Stop Time Status Last Admin Dose Admin Pantoprazole Sodium 40 mg DAILY IV 04/16/25 10:00 05/24/25 09:26 40 MG Amino Acids 0 ml @ 0 mls/hr PER PHARMACY IV 04/18/25 17:45 Sodium Chloride 10 ml QSHIFT@ IV 04/21/25 22:00 05/24/25 09:26 10 ML Albuterol 2.5 mg Q3HPRN PRN NEB 04/24/25 16:15 05/15/25 14:26 2.5 MG Diagnostic Test (Pha) 1 strip Q6HR 04/30/25 12:00 05/24/25 18:02 1 STRIP Insulin Human Regular FOLLOW SLIDING SCALE Q6HR SC 04/30/25 12:00 05/24/25 05:28 2 UNITS Dextrose 50 ml UD IV 04/30/25 09:00 05/09/25 00:20 50 ML Lidocaine 1 patch DAILY TOP 04/30/25 10:30 05/17/25 08:26 1 PATCH Morphine Sulfate 1 mg Q6HP PRN IV 04/30/25 10:30 05/02/25 17:58 1 MG Metoprolol Tartrate 2.5 mg Q4HR PRN IV 04/30/25 11:30 Hold 05/22/25 14:04 2.5 MG Acetylcysteine 100 mg Q4HR NEB 05/05/25 10:00 UNV Enoxaparin Sodium 50 mg Q12HR SC 05/07/25 22:00 05/24/25 09:25 50 MG Acetaminophen 650 mg Q6HP PRN [place] 05/09/25 10:30 Vancomycin HCl 250 ml @ 200 mls/hr Q12H IV 05/09/25 18:00 Cancel Dextrose/Sodium Chloride 1,000 ml @ 30 mls/hr Q24H IV 05/10/25 18:15 05/24/25 18:12 30 MLS/HR Levalbuterol HCl 0.625 mg Q8HR NEB 05/11/25 14:00 05/24/25 14:00 0.625 MG Ipratropium [place] 0.5 mg Q8HR NEB 05/11/25 14:00 05/24/25 14:00 0.5 MG Potassium Acetate 40 meq/Potassium Phosphate 35 meq/ Calcium Gluconate 6.975 meq/ Magnesium Sulfate 26 meq/ Multivitamins 10 ml/Chromium/ Copper/Manganese/ Zinc 1 ml/Amino Acids/Dextrose 1,160.4545 ml @ 48.6 mls/hr [id number] IV 05/14/25 22:00 05/15/25 21:59 Cancel Metoclopramide HCl 5 mg Q6HR IV 05/20/25 18:00 05/24/25 18:06 5 MG Lactulose 30 ml BID NG 05/21/25 10:00 05/24/25 09:26 30 ML Ceftriaxone Sodium 50 ml @ 100 mls/hr DAILY@09 IV 05/21/25 09:00 05/24/25 08:46 100 MLS/HR Labetalol HCl 10 mg Q2HPRN PRN IV 05/22/25 13:45 Hold 05/22/25 17:49 10 MG Fentanyl Citrate 250 ml @ 2.5 mls/hr Q24H IV 05/22/25 23:15 05/23/25 19:11 10 MLS/HR Norepinephrine Bitartrate 250 ml @ 3.75 mls/hr Q24H IV 05/23/25 03:30 05/24/25 02:59 15 MLS/HR Propofol 100 ml @ 1.563 mls/ hr Q24H IV 05/23/25 03:30 05/24/25 09:16 7.815 MLS/HR Potassium Phosphate 11 meq/ Calcium Gluconate 9.3 meq/Magnesium Sulfate 32 meq/ Multivitamins 10 ml/Chromium/ Copper/Manganese/ Zinc 1 ml/Amino Acids/Dextrose/ Purified Water 1,241.5 ml @ 50 mls/hr [id number] IV 05/23/25 22:00 05/24/25 21:59 05/23/25 20:58 50 MLS/HR Potassium Phosphate 4.4 meq/ Calcium Gluconate 11.625 meq/ Magnesium Sulfate 24 meq/ Multivitamins 10 ml/Chromium/ Copper/Manganese/ Zinc 1 ml/Amino Acids/Dextrose/ Purified Water 1,243 ml @ 51 mls/hr [id number] IV 05/24/25 22:00 05/25/25 21:59 Artificial Tears 1 drop Q2HP PRN EACHEYE 05/24/25 13:15 objective General Appearance: Intubated sedated HEENT: PERRLA, EOMI Lungs: Decreased breath sound on left lower lung. High-flow at 50% FiO2 Cardiovascular: Normal S1, Normal S2 Abdomen: No tenderness, No hepatospenomegaly, hypoactive bowel sounds, surgical wound dry Genitourinary: No Apparent Abnormalities (Grewal catheter) Musculoskeletal: Normal sensory function, Normal motor function Extremities: No edema, Normal pulses, No tenderness/swelling laboratory and microbiology Laboratory Tests 05/24/25 03:40 Test 05/24/25 03:40 Range/Units Serum Glucose 128 H 74-106 mg/dL Problems(with codes): (1) Ileus (2) Choledocholithiasis (3) Urinary tract infection (4) Acute respiratory distress (5) Small bowel obstruction Prognosis Plan Continue IV PPI NG tube clamped Continue IV TPN Attempt starting trickle tube feedings in a.m. Overall prognosis remains guarded because of pulmonary compromise Dietary Evaluation Review Recommendations by RD: PPN/TPN Comments: 1) Increase TPN to meet at least 75% estimated daily needs 2) Advance to cardiac diet when medically feasible 3) Follow-up with gastroenterology and neurology 4) Continue to monitor I&O, labs, and skin integrity Expected Outcomes/Goals: 1) nutrition support to meet at least 75% estimated daily needs 2) labs to improve 3) diet to advance 4) gradual wt gain 5) f/u in 2-3 days Plan discussed with: Other (ICU Nurse and Dr Azul Cui) JIL CUI MD May 24, 2025 19:02
[2025-05-24] MEDS: TPN PER PHARMACY IV NR (21:00)
[2025-05-25] VITALS (105 sets, daily range): BP systolic 101–130; BP diastolic 34–58; PULSE 69–93; RESP 11–26; TEMP 97.4–98.5; O2SAT 93–100
[2025-05-25 04:50] LABS: Alanine Aminotransferase 36 U/L (7-40); Anion Gap 9 (5-15); BUN/Creatinine Ratio 76.2 (10.0-20.0); Carbon Dioxide 25 mmol/L (20-31); Magnesium 2.1 mg/dL (1.6-2.6); Potassium 3.9 mmol/L (3.5-5.1); Sodium 143 mmol/L (136-145)
[2025-05-25 05:19] LABS: Albumin 2.7 g/dL (3.2-4.8); Alkaline Phosphatase 120 U/L (46-116); Bilirubin, Total 0.2 mg/dL (0.2-1.0); Blood Urea Nitrogen 32 mg/dL (9-23); Calcium 7.6 mg/dL (8.7-10.4); Chloride 109 mmol/L (98-107); Glucose 108 mg/dL (74-106); Total Protein 5.1 g/dL (5.7-8.2)
[2025-05-25 08:21] LABS: Base Excess -2.1 mmol/L (-2.0-3.0)
--- NOTE | 2025-05-25 09:18 | DVHPN2 ---
Reviewed: Care Plan, H&P, Labs, Medications Changes from previous H/P or p: No Changes General: Per HPI Objective Vitals Vital Signs Date Time Temp Pulse Resp B/P (MAP) Pulse Ox O2 Delivery O2 Flow Rate FiO2 05/25/25 08:07 88 24 112/43 (66) 98 30 05/25/25 08:00 Mechanical Ventilator+ 05/25/25 04:00 97.8 97.8 05/24/25 18:00 30 Intake/Output Intake and Output 05/25/25 07:00 Intake Total 2093.825 ml Output Total 1900 ml Balance 193.825 ml Intake Oral 40 ml IV Total 2053.825 ml Output Urine Total 1900 ml General Appearance: moderate distress, Other (Intubated and sedated) HEENT: Atraumatic, PERRLA, Other Lungs: Clear to auscultation, Normal air movement, Other (Mechanical ventilation) Cardiovascular: Normal S1, Normal S2, Other (Fibrillation with controlled rate) Abdomen: No tenderness, No hepatospenomegaly, Other (Hypoactive bowel sounds.) Genitourinary: No Apparent Abnormalities (Grewal catheter) Musculoskeletal: Normal sensory function, Normal motor function Extremities: No edema, Normal pulses, No tenderness/swelling Neuro: Cranial nerves 3-12 NL, Other Skin: Dry, Intact, Wounds, Other (Surgical wound D&I) Psych/Mental Status: Mood NL Medications Current Medications Medications Dose Ordered Sig/Gregory Route Start Time Stop Time Status Last Admin Dose Admin Pantoprazole Sodium 40 mg DAILY IV 04/16/25 10:00 05/24/25 09:26 40 MG Amino Acids 0 ml @ 0 mls/hr PER PHARMACY IV 04/18/25 17:45 Sodium Chloride 10 ml QSHIFT@10,22 IV 04/21/25 22:00 05/24/25 21:00 10 ML Albuterol 2.5 mg Q3HPRN PRN NEB 04/24/25 16:15 05/15/25 14:26 2.5 MG Diagnostic Test (Pha) 1 strip Q6HR 04/30/25 12:00 05/25/25 05:19 1 STRIP Insulin Human Regular FOLLOW SLIDING SCALE Q6HR SC 04/30/25 12:00 05/24/25 05:28 2 UNITS Dextrose 50 ml UD IV 04/30/25 09:00 05/09/25 00:20 50 ML Lidocaine 1 patch DAILY TOP 04/30/25 10:30 05/17/25 08:26 1 PATCH Morphine Sulfate 1 mg Q6HP PRN IV 04/30/25 10:30 05/02/25 17:58 1 MG Metoprolol Tartrate 2.5 mg Q4HR PRN IV 04/30/25 11:30 Hold 05/22/25 14:04 2.5 MG Acetylcysteine 100 mg Q4HR NEB 05/05/25 10:00 UNV Enoxaparin Sodium 50 mg Q12HR SC 05/07/25 22:00 05/24/25 20:52 50 MG Acetaminophen 650 mg Q6HP PRN [place] 05/09/25 10:30 Vancomycin HCl 250 ml @ 200 mls/hr Q12H IV 05/09/25 18:00 Cancel Dextrose/Sodium Chloride 1,000 ml @ 30 mls/hr Q24H IV 05/10/25 18:15 05/24/25 18:12 30 MLS/HR Levalbuterol HCl 0.625 mg Q8HR NEB 05/11/25 14:00 05/25/25 06:17 0.625 MG Ipratropium [place] 0.5 mg Q8HR NEB 05/11/25 14:00 05/25/25 06:17 0.5 MG Potassium Acetate 40 meq/Potassium Phosphate 35 meq/ Calcium Gluconate 6.975 meq/ Magnesium Sulfate 26 meq/ Multivitamins 10 ml/Chromium/ Copper/Manganese/ Zinc 1 ml/Amino Acids/Dextrose 1,160.4545 ml @ 48.6 mls/hr [id number] IV 05/14/25 22:00 05/15/25 21:59 Cancel Metoclopramide HCl 5 mg Q6HR IV 05/20/25 18:00 05/25/25 05:19 5 MG Lactulose 30 ml BID NG 05/21/25 10:00 05/24/25 20:51 30 ML Ceftriaxone Sodium 50 ml @ 100 mls/hr DAILY@09 IV 05/21/25 09:00 05/24/25 08:46 100 MLS/HR Labetalol HCl 10 mg Q2HPRN PRN IV 05/22/25 13:45 Hold 05/22/25 17:49 10 MG Fentanyl Citrate 250 ml @ 2.5 mls/hr Q24H IV 05/22/25 23:15 05/24/25 20:59 7.5 MLS/HR Norepinephrine Bitartrate 250 ml @ 3.75 mls/hr Q24H IV 05/23/25 03:30 05/24/25 02:59 15 MLS/HR Propofol 100 ml @ 1.563 mls/ hr Q24H IV 05/23/25 03:30 05/25/25 05:25 7.815 MLS/HR Potassium Phosphate 4.4 meq/ Calcium Gluconate 11.625 meq/ Magnesium Sulfate 24 meq/ Multivitamins 10 ml/Chromium/ Copper/Manganese/ Zinc 1 ml/Amino Acids/Dextrose/ Purified Water 1,243 ml @ 51 mls/hr [id number] IV 05/24/25 22:00 05/25/25 21:59 05/24/25 21:00 51 MLS/HR Artificial Tears 1 drop Q2HP PRN EACHEYE 05/24/25 13:15 Laboratory Results Laboratory Tests 05/24/25 03:40 05/25/25 03:40 Chemistry Test 05/25/25 03:40 Albumin 2.7 g/dL (3.2-4.8) L Calcium Level 7.6 mg/dL (8.7-10.4) L Magnesium Level 2.1 mg/dL (1.6-2.6) Phosphorus Level 3.6 mg/dL (2.4-5.1) Total Protein 5.1 g/dL (5.7-8.2) L LFT Test 05/25/25 03:40 Alanine Aminotransferase (ALT) 36 U/L (7-40) Alkaline Phosphatase 120 U/L (46-116) H Aspartate Amino Transferase (AST) 28 U/L (13-40) Total Bilirubin 0.2 mg/dL (0.2-1.0) Urinalysis Test 04/15/25 15:45 05/11/25 14:35 Urine Amorphous Crystals Few /hpf (None Seen) Urine Hyaline Casts Few /lpf (0 - 2) Urine Mucus Few (None Seen) Urine Color Light-yellow (Yellow) Urine Clarity Clear (Clear) Urine pH 7.0 (5.0-9.0) Urine Specific [place] 1.021 (1.001-1.035) Urine Protein Negative (Negative) Urine Ketones Negative (Negative) Urine Blood 1+ /uL (Negative) H Urine Nitrite Negative (Negative) Urine Bilirubin Negative (Negative) Urine Urobilinogen Normal mg/dL (Negative) Urine Leukocyte Esterase Negative /uL (Negative) Urine RBC 55 /hpf (0 - 4) Urine Microscopic WBC 1 /HPF (0-5) Urine Squamous Epithelial Cells Few /hpf (<5) Urine Bacteria None seen /hpf (None Seen) Urine Glucose Normal mg/dL (Normal) Blood Gas Results Test 05/25/25 07:46 Arterial Blood pH 7.368 (7.350-7.450) FiO2 % 30.0 Microbiology Microbiology Date/Time Source Procedure Growth Status 05/22/25 22:15 Sputum Gram Stain - Final Resulted 05/22/25 22:15 Sputum Respiratory Culture - Preliminary Resulted 05/16/25 13:14 Urine - Grewal Port Urine Culture - Final Complete 05/09/25 11:22 Blood Blood Culture - Final NO GROWTH AFTER 5 DAYS OF INCUBATION. Complete 05/02/25 00:00 Nose MRSA Screen - Final Complete 04/30/25 14:30 Pleural Fluid Gram Stain - Final Complete 04/30/25 14:30 Pleural Fluid Body Fluid Culture - Final Complete Labs and/or images reviewed: Labs reviewed by me, Image(s) reviewed by me Assessment/Plan Assessment/Plan HPI: 89-year-old female presents for evaluation of abdominal pain. Patient with dementia noted by family members to be complaining of abdominal pain for the past two days. There is no nausea or vomiting. Family also reports worsening confusion from baseline. Past Medical History Dementia, COPD, GERD, asthma 05/07: Patient currently intubated and sedated. CPAP with adequate respiratory status. KUB without any signs of ileus. NG secretions 25 mL overnight. Discussed case with Dr. Clau Cui who is agreeable for CPAP after performing a repeat KUB after having NG tube taken off suction for 5 hours. 05/08: female here with SBO, patient had come to ICU after surgery and then extubated and downgraded to tele, had to be reintubated due to aspiration pneumonia. Currently has NG tube on intermittent suction, overnight having 150 u bilious output. Surgery today planning for oral contrast CT. Good urine output without Lasix. Feeds is getting TPN. No sedation vacation, RASS-1 to - 2. Daily CPAP trials approximately 5 hours. Vital signs stable. We will continue primary hospitalist plan. 05/24: Patient was extubated and then reintubated 2nd time, this time due to hypercarbic respiratory failure. Currently patient on a.c. 16/4 100/30%/5, patient is breathing over the vent. Light sedation RASS-2 to -3. Patient wakes up easily when doing q.2h turns. Vitals stable. Currently on fentanyl 100, TPN 50, Levophed 8, Diprivan 25. Grewal with adequate urine output. Surgery and pulmonology recommending no extubation. We will discuss with pulmonology if we can continue trials CPAP trials for patients respiratory exercise. No extubation over the weekend. 05/25: Patient has been weaned off of Levophed yesterday p.m.. Continuing sedation vacation and CPAP trials as approved with pulmonology. Minimal vent settings., patient was getting lidocaine patch while on the wards, we will DC for now. Continue present management. Impression: -choledocholithiasis -acute pancreatitis -small-bowel obstruction -dementia -cachexia -sepsis -COPD -GERD -Post op delirium -Accelerated HTN -A.fib Plan: -repeat KUB. If no signs of gastric or bowel distention, clamp NG tube and possible introduction of clear liquids today -continue Reglan, add lactulose via NG tube -Continue TPN, IV fluid -Continue current abx -PPI -full-dose anticoagulation -continue Xopenex, ipratropium. Stop Mucomyst -repeat labs and chest x-ray in a.m. -long discussion made with the patient's [id number] regarding plan of care which includes tracheostomy versus compassionate extubation. She states that she will discuss with the family over the weekend. Critical care time spent with patient discussing and formulating plan of care: 40 minutes. This does not include time spent performing procedures. Plan discussed with: Patient My Orders Orders - LUDIVINA RIOS MD Procedure Category Date Status Time Artificial Tear 15ml PHA 05/24/25 In Process Opthalmic (Tears Na 13:15 Date of Service: May 25, 2025 Billing Provider: LUDIVINA RIOS MD Common Visit Codes: [id number] CARE 30-74 MIN LUDIVINA RIOS MD May 25, 2025 09:18
--- NOTE | 2025-05-25 10:12 | DVHPN2 ---
Progress Note Date Seen: May 25, 2025 Medical Necessity Reason Pt with a Central, PICC or Fol: Yes The following are medically ne: PICC Line, Grewal Catheter Objective vital signs Vital Sign Date Time Temp Pulse Resp B/P (MAP) Pulse Ox O2 Delivery O2 Flow Rate FiO2 05/25/25 08:07 88 24 112/43 (66) 98 30 05/25/25 08:00 Mechanical Ventilator+ 05/25/25 04:00 97.8 97.8 05/24/25 18:00 30 Total Intake and Output 05/24/25 05/24/25 05/25/25 15:00 23:00 07:00 Intake Total 813.930 ml 815.375 ml 464.520 ml Output Total 1150 ml 750 ml Balance 813.930 ml -334.625 ml -285.480 ml medications Current Medications Medications Dose Ordered Sig/Gregory Route Start Time Stop Time Status Last Admin Dose Admin Pantoprazole Sodium 40 mg DAILY IV 04/16/25 10:00 05/25/25 09:10 40 MG Amino Acids 0 ml @ 0 mls/hr PER PHARMACY IV 04/18/25 17:45 Sodium Chloride 10 ml QSHIFT@10,22 IV 04/21/25 22:00 05/25/25 09:18 10 ML Albuterol 2.5 mg Q3HPRN PRN NEB 04/24/25 16:15 05/15/25 14:26 2.5 MG Diagnostic Test (Pha) 1 strip Q6HR 04/30/25 12:00 05/25/25 05:19 1 STRIP Insulin Human Regular FOLLOW SLIDING SCALE Q6HR SC 04/30/25 12:00 05/24/25 05:28 2 UNITS Dextrose 50 ml UD IV 04/30/25 09:00 05/09/25 00:20 50 ML Lidocaine 1 patch DAILY TOP 04/30/25 10:30 05/17/25 08:26 1 PATCH Morphine Sulfate 1 mg Q6HP PRN IV 04/30/25 10:30 05/02/25 17:58 1 MG Metoprolol Tartrate 2.5 mg Q4HR PRN IV 04/30/25 11:30 Hold 05/22/25 14:04 2.5 MG Acetylcysteine 100 mg Q4HR NEB 05/05/25 10:00 UNV Enoxaparin Sodium 50 mg Q12HR SC 05/07/25 22:00 05/25/25 09:11 50 MG Acetaminophen 650 mg Q6HP PRN [place] 05/09/25 10:30 Vancomycin HCl 250 ml @ 200 mls/hr Q12H IV 05/09/25 18:00 Cancel Dextrose/Sodium Chloride 1,000 ml @ 30 mls/hr Q24H IV 05/10/25 18:15 05/24/25 18:12 30 MLS/HR Levalbuterol HCl 0.625 mg Q8HR NEB 05/11/25 14:00 05/25/25 06:17 0.625 MG Ipratropium [place] 0.5 mg Q8HR NEB 05/11/25 14:00 05/25/25 06:17 0.5 MG Potassium Acetate 40 meq/Potassium Phosphate 35 meq/ Calcium Gluconate 6.975 meq/ Magnesium Sulfate 26 meq/ Multivitamins 10 ml/Chromium/ Copper/Manganese/ Zinc 1 ml/Amino Acids/Dextrose 1,160.4545 ml @ 48.6 mls/hr [id number] IV 05/14/25 22:00 05/15/25 21:59 Cancel Metoclopramide HCl 5 mg Q6HR IV 05/20/25 18:00 05/25/25 05:19 5 MG Lactulose 30 ml BID NG 05/21/25 10:00 05/25/25 09:10 30 ML Ceftriaxone Sodium 50 ml @ 100 mls/hr DAILY@09 IV 05/21/25 09:00 05/25/25 09:10 100 MLS/HR Labetalol HCl 10 mg Q2HPRN PRN IV 05/22/25 13:45 Hold 05/22/25 17:49 10 MG Fentanyl Citrate 250 ml @ 2.5 mls/hr Q24H IV 05/22/25 23:15 05/24/25 20:59 7.5 MLS/HR Norepinephrine Bitartrate 250 ml @ 3.75 mls/hr Q24H IV 05/23/25 03:30 05/24/25 02:59 15 MLS/HR Propofol 100 ml @ 1.563 mls/ hr Q24H IV 05/23/25 03:30 05/25/25 05:25 7.815 MLS/HR Potassium Phosphate 4.4 meq/ Calcium Gluconate 11.625 meq/ Magnesium Sulfate 24 meq/ Multivitamins 10 ml/Chromium/ Copper/Manganese/ Zinc 1 ml/Amino Acids/Dextrose/ Purified Water 1,243 ml @ 51 mls/hr [id number] IV 05/24/25 22:00 05/25/25 21:59 05/24/25 21:00 51 MLS/HR Artificial Tears 1 drop Q2HP PRN EACHEYE 05/24/25 13:15 laboratory and microbiology Laboratory Tests 05/25/25 03:40 05/24/25 03:40 Test 05/25/25 03:40 Range/Units Serum Glucose 108 H 74-106 mg/dL Microbiology Date/Time Source Procedure Growth Status 05/22/25 22:15 Sputum Gram Stain - Final Resulted 05/22/25 22:15 Sputum Respiratory Culture - Preliminary Resulted 05/16/25 13:14 Urine - Grewal Port Urine Culture - Final Complete 05/09/25 11:22 Blood Blood Culture - Final NO GROWTH AFTER 5 DAYS OF INCUBATION. Complete 05/02/25 00:00 Nose MRSA Screen - Final Complete 04/30/25 14:30 Pleural Fluid Gram Stain - Final Complete 04/30/25 14:30 Pleural Fluid Body Fluid Culture - Final Complete Problem List/Assessment/Plan Problem List/Assessment/Plan AFEBRILE VSS REMAINS INTUBATED ABD SOFT NON DISTENDED BM + CONTINUE SUPPORTIVE CARE FAMILY AWARE OF PT CONDITION NURSE AT BEDSIDE ONGOING PULM EVAL FR POSSIBLE CPAP AND EXTUBATION CLAMP NG CONTINUE CLOSE OBSERVATION Plan discussed with: Other Dietary Evaluation Review Recommendations by RD: PPN/TPN Comments: 1) Increase TPN to meet at least 75% estimated daily needs 2) Advance to cardiac diet when medically feasible 3) Follow-up with gastroenterology and neurology 4) Continue to monitor I&O, labs, and skin integrity Expected Outcomes/Goals: 1) nutrition support to meet at least 75% estimated daily needs 2) labs to improve 3) diet to advance 4) gradual wt gain 5) f/u in 2-3 days GLORIA MCNEAL MD May 25, 2025 10:12
--- NOTE | 2025-05-25 14:23 | DVHPN2 ---
Progress Note - Dictate Date Seen: May 25, 2025 Medical Necessity Reason Pt with a Central, PICC or Fol: Yes The following are medically ne: PICC Line, Grewal Catheter Subjective Patient is intubated sedated due to hypoxic respiratory failure NG tube was clamped today Patient is getting IV TPN One bowel movement was recorded vital signs Vital Sign Date Time Temp Pulse Resp B/P (MAP) Pulse Ox O2 Delivery O2 Flow Rate FiO2 05/25/25 14:00 30 05/25/25 14:00 18 100 Mechanical Ventilator+ 05/25/25 13:00 78 124/49 (74) 05/25/25 12:00 97.4 97.4 05/24/25 18:00 30 Total Intake and Output 05/24/25 05/24/25 05/25/25 15:00 23:00 07:00 Intake Total 813.930 ml 815.375 ml 464.520 ml Output Total 1150 ml 750 ml Balance 813.930 ml -334.625 ml -285.480 ml medications Current Medications Medications Dose Ordered Sig/Gregory Route Start Time Stop Time Status Last Admin Dose Admin Pantoprazole Sodium 40 mg DAILY IV 04/16/25 10:00 05/25/25 09:10 40 MG Amino Acids 0 ml @ 0 mls/hr PER PHARMACY IV 04/18/25 17:45 Sodium Chloride 10 ml QSHIFT@, IV 04/21/25 22:00 05/25/25 09:18 10 ML Albuterol 2.5 mg Q3HPRN PRN NEB 04/24/25 16:15 05/15/25 14:26 2.5 MG Diagnostic Test (Pha) 1 strip Q6HR 04/30/25 12:00 05/25/25 11:52 1 STRIP Insulin Human Regular FOLLOW SLIDING SCALE Q6HR SC 04/30/25 12:00 05/24/25 05:28 2 UNITS Dextrose 50 ml UD IV 04/30/25 09:00 05/09/25 00:20 50 ML Morphine Sulfate 1 mg Q6HP PRN IV 04/30/25 10:30 05/02/25 17:58 1 MG Metoprolol Tartrate 2.5 mg Q4HR PRN IV 04/30/25 11:30 Hold 05/22/25 14:04 2.5 MG Acetylcysteine 100 mg Q4HR NEB 05/05/25 10:00 UNV Enoxaparin Sodium 50 mg Q12HR SC 05/07/25 22:00 05/25/25 09:11 50 MG Acetaminophen 650 mg Q6HP PRN [place] 05/09/25 10:30 Vancomycin HCl 250 ml @ 200 mls/hr Q12H IV 05/09/25 18:00 Cancel Dextrose/Sodium Chloride 1,000 ml @ 30 mls/hr Q24H IV 05/10/25 18:15 05/24/25 18:12 30 MLS/HR Levalbuterol HCl 0.625 mg Q8HR NEB 05/11/25 14:00 05/25/25 13:20 0.625 MG Ipratropium [place] 0.5 mg Q8HR NEB 05/11/25 14:00 05/25/25 13:20 0.5 MG Potassium Acetate 40 meq/Potassium Phosphate 35 meq/ Calcium Gluconate 6.975 meq/ Magnesium Sulfate 26 meq/ Multivitamins 10 ml/Chromium/ Copper/Manganese/ Zinc 1 ml/Amino Acids/Dextrose 1,160.4545 ml @ 48.6 mls/hr [id number] IV 05/14/25 22:00 05/15/25 21:59 Cancel Metoclopramide HCl 5 mg Q6HR IV 05/20/25 18:00 05/25/25 11:51 5 MG Lactulose 30 ml BID NG 05/21/25 10:00 05/25/25 09:10 30 ML Ceftriaxone Sodium 50 ml @ 100 mls/hr DAILY@09 IV 05/21/25 09:00 05/25/25 09:10 100 MLS/HR Labetalol HCl 10 mg Q2HPRN PRN IV 05/22/25 13:45 Hold 05/22/25 17:49 10 MG Fentanyl Citrate 250 ml @ 2.5 mls/hr Q24H IV 05/22/25 23:15 05/24/25 20:59 7.5 MLS/HR Norepinephrine Bitartrate 250 ml @ 3.75 mls/hr Q24H IV 05/23/25 03:30 05/24/25 02:59 15 MLS/HR Propofol 100 ml @ 1.563 mls/ hr Q24H IV 05/23/25 03:30 05/25/25 05:25 7.815 MLS/HR Potassium Phosphate 4.4 meq/ Calcium Gluconate 11.625 meq/ Magnesium Sulfate 24 meq/ Multivitamins 10 ml/Chromium/ Copper/Manganese/ Zinc 1 ml/Amino Acids/Dextrose/ Purified Water 1,243 ml @ 51 mls/hr [id number] IV 05/24/25 22:00 05/25/25 21:59 05/24/25 21:00 51 MLS/HR Artificial Tears 1 drop Q2HP PRN EACHEYE 05/24/25 13:15 Enteral Nutritional Formula 1,000 ml 10ML/HR GT 05/25/25 10:45 Potassium Chloride 10 meq/ Potassium Phosphate 11 meq/ Calcium Gluconate 13.92 meq/ Magnesium Sulfate 24 meq/ Multivitamins 10 ml/Chromium/ Copper/Manganese/ Zinc 1 ml/Amino Acids/Dextrose/ Purified Water 1,254.4354 ml @ 52 mls/hr Q24H8M IV 05/25/25 22:00 05/26/25 21:59 objective General Appearance: Intubated sedated HEENT: PERRLA, EOMI Lungs: Decreased breath sound on left lower lung. High-flow at 50% FiO2 Cardiovascular: Normal S1, Normal S2 Abdomen: No tenderness, No hepatospenomegaly, hypoactive bowel sounds, surgical wound dry Genitourinary: No Apparent Abnormalities (Grewal catheter) Musculoskeletal: Normal sensory function, Normal motor function Extremities: No edema, Normal pulses, No tenderness/swelling laboratory and microbiology Laboratory Tests 05/25/25 03:40 05/24/25 03:40 Test 05/25/25 03:40 Range/Units Serum Glucose 108 H 74-106 mg/dL Problems(with codes): (1) Ileus (2) Choledocholithiasis (3) Urinary tract infection (4) Acute respiratory distress (5) Small bowel obstruction (6) COPD (chronic obstructive pulmonary disease) Prognosis Plan Start enteral tube feedings at 10 mL/hour CPAP trial as per Pulmonary recommendations Continue IV antibiotics Continue TPN Continue supportive care for now Family discussion over the weekend to decide on further plan of care Dietary Evaluation Review Recommendations by RD: PPN/TPN Comments: 1) Increase TPN to meet at least 75% estimated daily needs 2) Advance to cardiac diet when medically feasible 3) Follow-up with gastroenterology and neurology 4) Continue to monitor I&O, labs, and skin integrity Expected Outcomes/Goals: 1) nutrition support to meet at least 75% estimated daily needs 2) labs to improve 3) diet to advance 4) gradual wt gain 5) f/u in 2-3 days Plan discussed with: Other (ICU Nurse) JIL MCNEAL MD May 25, 2025 14:23
--- NOTE | 2025-05-25 14:35 | DVHPN2 ---
Progress Note - Dictate Date Seen: May 25, 2025 Medical Necessity Reason Pt with a Central, PICC or Fol: Yes The following are medically ne: PICC Line, Grewal Catheter vital signs Vital Sign Date Time Temp Pulse Resp B/P (MAP) Pulse Ox O2 Delivery O2 Flow Rate FiO2 05/25/25 14:22 83 25 107/39 (61) 100 30 05/25/25 14:00 Mechanical Ventilator+ 05/25/25 12:00 97.4 97.4 05/24/25 18:00 30 Total Intake and Output 05/24/25 05/24/25 05/25/25 15:00 23:00 07:00 Intake Total 813.930 ml 815.375 ml 464.520 ml Output Total 1150 ml 750 ml Balance 813.930 ml -334.625 ml -285.480 ml medications Current Medications Medications Dose Ordered Sig/Gregory Route Start Time Stop Time Status Last Admin Dose Admin Pantoprazole Sodium 40 mg DAILY IV 04/16/25 10:00 05/25/25 09:10 40 MG Amino Acids 0 ml @ 0 mls/hr PER PHARMACY IV 04/18/25 17:45 Sodium Chloride 10 ml QSHIFT@10,22 IV 04/21/25 22:00 05/25/25 09:18 10 ML Albuterol 2.5 mg Q3HPRN PRN NEB 04/24/25 16:15 05/15/25 14:26 2.5 MG Diagnostic Test (Pha) 1 strip Q6HR 04/30/25 12:00 05/25/25 11:52 1 STRIP Insulin Human Regular FOLLOW SLIDING SCALE Q6HR SC 04/30/25 12:00 05/24/25 05:28 2 UNITS Dextrose 50 ml UD IV 04/30/25 09:00 05/09/25 00:20 50 ML Morphine Sulfate 1 mg Q6HP PRN IV 04/30/25 10:30 05/02/25 17:58 1 MG Metoprolol Tartrate 2.5 mg Q4HR PRN IV 04/30/25 11:30 Hold 05/22/25 14:04 2.5 MG Acetylcysteine 100 mg Q4HR NEB 05/05/25 10:00 UNV Enoxaparin Sodium 50 mg Q12HR SC 05/07/25 22:00 05/25/25 09:11 50 MG Acetaminophen 650 mg Q6HP PRN [place] 05/09/25 10:30 Vancomycin HCl 250 ml @ 200 mls/hr Q12H IV 05/09/25 18:00 Cancel Dextrose/Sodium Chloride 1,000 ml @ 30 mls/hr Q24H IV 05/10/25 18:15 05/24/25 18:12 30 MLS/HR Levalbuterol HCl 0.625 mg Q8HR NEB 05/11/25 14:00 05/25/25 13:20 0.625 MG Ipratropium [place] 0.5 mg Q8HR NEB 05/11/25 14:00 05/25/25 13:20 0.5 MG Potassium Acetate 40 meq/Potassium Phosphate 35 meq/ Calcium Gluconate 6.975 meq/ Magnesium Sulfate 26 meq/ Multivitamins 10 ml/Chromium/ Copper/Manganese/ Zinc 1 ml/Amino Acids/Dextrose 1,160.4545 ml @ 48.6 mls/hr [id number] IV 05/14/25 22:00 05/15/25 21:59 Cancel Metoclopramide HCl 5 mg Q6HR IV 05/20/25 18:00 05/25/25 11:51 5 MG Lactulose 30 ml BID NG 05/21/25 10:00 05/25/25 09:10 30 ML Ceftriaxone Sodium 50 ml @ 100 mls/hr DAILY@09 IV 05/21/25 09:00 05/25/25 09:10 100 MLS/HR Labetalol HCl 10 mg Q2HPRN PRN IV 05/22/25 13:45 Hold 05/22/25 17:49 10 MG Fentanyl Citrate 250 ml @ 2.5 mls/hr Q24H IV 05/22/25 23:15 05/24/25 20:59 7.5 MLS/HR Norepinephrine Bitartrate 250 ml @ 3.75 mls/hr Q24H IV 05/23/25 03:30 05/24/25 02:59 15 MLS/HR Propofol 100 ml @ 1.563 mls/ hr Q24H IV 05/23/25 03:30 05/25/25 05:25 7.815 MLS/HR Potassium Phosphate 4.4 meq/ Calcium Gluconate 11.625 meq/ Magnesium Sulfate 24 meq/ Multivitamins 10 ml/Chromium/ Copper/Manganese/ Zinc 1 ml/Amino Acids/Dextrose/ Purified Water 1,243 ml @ 51 mls/hr [id number] IV 05/24/25 22:00 05/25/25 21:59 05/24/25 21:00 51 MLS/HR Artificial Tears 1 drop Q2HP PRN EACHEYE 05/24/25 13:15 Enteral Nutritional Formula 1,000 ml 10ML/HR GT 05/25/25 10:45 Potassium Chloride 10 meq/ Potassium Phosphate 11 meq/ Calcium Gluconate 13.92 meq/ Magnesium Sulfate 24 meq/ Multivitamins 10 ml/Chromium/ Copper/Manganese/ Zinc 1 ml/Amino Acids/Dextrose/ Purified Water 1,254.4354 ml @ 52 mls/hr Q24H8M IV 05/25/25 22:00 05/26/25 21:59 laboratory and microbiology Laboratory Tests 05/25/25 03:40 05/24/25 03:40 Test 05/25/25 03:40 Range/Units Serum Glucose 108 H 74-106 mg/dL Assessment/Plan Impression Acute hypoxemic respiratory failure Lung collapse Pneumonia Atelectasis SBO Patient seen and examined in ICU Events pt re-intubated on mech ventilation PEEP 5, FiO2 30% S/p sigmoidoscopy Labs and imaging reviewed ABG reviewed Management sedation per protocol ac volume control vent support adjust daily abg's and CXR Slow weaning from ventilator Continue antibiotics F/u cultures Bronchodilators Monitor renal function Monitor electrolytes Supplement as needed F/u general surgery DVT prophylaxis Prognosis questionable may need LTAC Critical care time 35 minutes Dietary Evaluation Review Recommendations by RD: PPN/TPN Comments: 1) Increase TPN to meet at least 75% estimated daily needs 2) Advance to cardiac diet when medically feasible 3) Follow-up with gastroenterology and neurology 4) Continue to monitor I&O, labs, and skin integrity Expected Outcomes/Goals: 1) nutrition support to meet at least 75% estimated daily needs 2) labs to improve 3) diet to advance 4) gradual wt gain 5) f/u in 2-3 days Plan discussed with: Other (Rn) BRUNO GOLDMAN MD May 25, 2025 14:35
[2025-05-25] MEDS: Jevity 1.2 Cal/Fiber 1 Liter GT SCH (15:49)
[2025-05-25] MEDS: TPN PER PHARMACY IV NR (22:11)
[2025-05-26] VITALS (108 sets, daily range): BP systolic 102–156; BP diastolic 36–65; PULSE 69–97; RESP 16–32; TEMP 98–99; O2SAT 93–100
--- NOTE | 2025-05-26 03:06 | DVH ---
CHEST RADIOGRAPH Indication: ETT position Technique: Single frontal view of the chest was obtained Comparison: XY CHEST PORTABLE on DOS: 05/24/25, XY CHEST PORTABLE on DOS: 05/22/25, XY CHEST PORTABLE on DOS: 05/21/25 IMPRESSION: Support lines and tubes appear unchanged in satisfactory in position. There is a small left pleural effusion with airspace opacity in the left lung base. Mild pulmonary vascular congestion. No pneumothorax. No significant interval change.
[2025-05-26 04:55] LABS: Alanine Aminotransferase 25 U/L (7-40); Alkaline Phosphatase 99 U/L (46-116); Anion Gap 10 (5-15); BUN/Creatinine Ratio 59.0 (10.0-20.0); Carbon Dioxide 24 mmol/L (20-31); Glucose 101 mg/dL (74-106); Magnesium 1.8 mg/dL (1.6-2.6); Sodium 144 mmol/L (136-145)
[2025-05-26 04:57] LABS: Albumin 2.8 g/dL (3.2-4.8); Bilirubin, Total 0.2 mg/dL (0.2-1.0); Blood Urea Nitrogen 23 mg/dL (9-23); Calcium 7.8 mg/dL (8.7-10.4); Chloride 110 mmol/L (98-107); Potassium 3.2 mmol/L (3.5-5.1); Total Protein 5.3 g/dL (5.7-8.2)
--- NOTE | 2025-05-26 08:59 | DVHPN2 ---
Subjective Patient denies any symptoms at this time. Reviewed: Care Plan, H&P, Labs, Medications Changes from previous H/P or p: No Changes General: Per HPI Objective Vitals Vital Signs Date Time Temp Pulse Resp B/P (MAP) Pulse Ox O2 Delivery O2 Flow Rate FiO2 05/26/25 07:03 81 22 132/48 (76) 95 30 05/26/25 06:00 Mechanical Ventilator+ 05/26/25 04:00 98.5 98.5 05/24/25 18:00 30 Intake/Output Intake and Output 05/26/25 07:00 Intake Total 2155.863 ml Output Total 1850 ml Balance 305.863 ml Intake Oral 60 ml IV Total 1348.863 ml Tube Feeding 135 ml Other 612 ml Output Urine Total 1850 ml General Appearance: mild distress, Other (Intubated and sedated) HEENT: Atraumatic, PERRLA, Other Lungs: Clear to auscultation, Normal air movement, Other (Mechanical ventilation) Cardiovascular: Normal S1, Normal S2, Other (Fibrillation with controlled rate) Abdomen: No tenderness, No hepatospenomegaly, Other (Hypoactive bowel sounds.) Genitourinary: No Apparent Abnormalities (Grewal catheter) Musculoskeletal: Normal sensory function, Normal motor function Extremities: No edema, Normal pulses, No tenderness/swelling Neuro: Cranial nerves 3-12 NL, Other Skin: Dry, Intact, Wounds, Other (Surgical wound D&I) Psych/Mental Status: Mood NL Medications Current Medications Medications Dose Ordered Sig/Gregory Route Start Time Stop Time Status Last Admin Dose Admin Pantoprazole Sodium 40 mg DAILY IV 04/16/25 10:00 05/25/25 09:10 40 MG Amino Acids 0 ml @ 0 mls/hr PER PHARMACY IV 04/18/25 17:45 Sodium Chloride 10 ml QSHIFT@10,22 IV 04/21/25 22:00 05/25/25 22:06 10 ML Albuterol 2.5 mg Q3HPRN PRN NEB 04/24/25 16:15 05/15/25 14:26 2.5 MG Diagnostic Test (Pha) 1 strip Q6HR 04/30/25 12:00 05/26/25 06:41 1 STRIP Insulin Human Regular FOLLOW SLIDING SCALE Q6HR SC 04/30/25 12:00 05/24/25 05:28 2 UNITS Dextrose 50 ml UD IV 04/30/25 09:00 05/09/25 00:20 50 ML Morphine Sulfate 1 mg Q6HP PRN IV 04/30/25 10:30 05/02/25 17:58 1 MG Metoprolol Tartrate 2.5 mg Q4HR PRN IV 04/30/25 11:30 Hold 05/22/25 14:04 2.5 MG Acetylcysteine 100 mg Q4HR NEB 05/05/25 10:00 UNV Enoxaparin Sodium 50 mg Q12HR SC 05/07/25 22:00 05/25/25 22:07 50 MG Acetaminophen 650 mg Q6HP PRN [place] 05/09/25 10:30 Vancomycin HCl 250 ml @ 200 mls/hr Q12H IV 05/09/25 18:00 Cancel Dextrose/Sodium Chloride 1,000 ml @ 30 mls/hr Q24H IV 05/10/25 18:15 05/25/25 18:05 30 MLS/HR Levalbuterol HCl 0.625 mg Q8HR NEB 05/11/25 14:00 05/26/25 05:52 0.625 MG Ipratropium [place] 0.5 mg Q8HR NEB 05/11/25 14:00 05/26/25 05:52 0.5 MG Potassium Acetate 40 meq/Potassium Phosphate 35 meq/ Calcium Gluconate 6.975 meq/ Magnesium Sulfate 26 meq/ Multivitamins 10 ml/Chromium/ Copper/Manganese/ Zinc 1 ml/Amino Acids/Dextrose 1,160.4545 ml @ 48.6 mls/hr [id number] IV 05/14/25 22:00 05/15/25 21:59 Cancel Metoclopramide HCl 5 mg Q6HR IV 05/20/25 18:00 05/26/25 06:42 5 MG Lactulose 30 ml BID NG 05/21/25 10:00 05/25/25 22:06 30 ML Ceftriaxone Sodium 50 ml @ 100 mls/hr DAILY@09 IV 05/21/25 09:00 05/25/25 09:10 100 MLS/HR Labetalol HCl 10 mg Q2HPRN PRN IV 05/22/25 13:45 Hold 05/22/25 17:49 10 MG Fentanyl Citrate 250 ml @ 2.5 mls/hr Q24H IV 05/22/25 23:15 05/24/25 20:59 7.5 MLS/HR Norepinephrine Bitartrate 250 ml @ 3.75 mls/hr Q24H IV 05/23/25 03:30 05/24/25 02:59 15 MLS/HR Propofol 100 ml @ 1.563 mls/ hr Q24H IV 05/23/25 03:30 05/26/25 00:25 6.252 MLS/HR Artificial Tears 1 drop Q2HP PRN EACHEYE 05/24/25 13:15 Enteral Nutritional Formula 1,000 ml 10ML/HR GT 05/25/25 10:45 05/25/25 15:49 1,000 ML Potassium Chloride 10 meq/ Potassium Phosphate 11 meq/ Calcium Gluconate 13.92 meq/ Magnesium Sulfate 24 meq/ Multivitamins 10 ml/Chromium/ Copper/Manganese/ Zinc 1 ml/Amino Acids/Dextrose/ Purified Water 1,254.4354 ml @ 52 mls/hr Q24H8M IV 05/25/25 22:00 05/26/25 21:59 05/25/25 22:11 52 MLS/HR Laboratory Results Laboratory Tests 05/24/25 03:40 05/26/25 03:50 Chemistry Test 05/26/25 03:50 Albumin 2.8 g/dL (3.2-4.8) L Calcium Level 7.8 mg/dL (8.7-10.4) L Magnesium Level 1.8 mg/dL (1.6-2.6) Phosphorus Level 3.1 mg/dL (2.4-5.1) Total Protein 5.3 g/dL (5.7-8.2) L LFT Test 05/26/25 03:50 Alanine Aminotransferase (ALT) 25 U/L (7-40) Alkaline Phosphatase 99 U/L (46-116) Aspartate Amino Transferase (AST) 24 U/L (13-40) Total Bilirubin 0.2 mg/dL (0.2-1.0) Urinalysis Test 04/15/25 15:45 05/11/25 14:35 Urine Amorphous Crystals Few /hpf (None Seen) Urine Hyaline Casts Few /lpf (0 - 2) Urine Mucus Few (None Seen) Urine Color Light-yellow (Yellow) Urine Clarity Clear (Clear) Urine pH 7.0 (5.0-9.0) Urine Specific [place] 1.021 (1.001-1.035) Urine Protein Negative (Negative) Urine Ketones Negative (Negative) Urine Blood 1+ /uL (Negative) H Urine Nitrite Negative (Negative) Urine Bilirubin Negative (Negative) Urine Urobilinogen Normal mg/dL (Negative) Urine Leukocyte Esterase Negative /uL (Negative) Urine RBC 55 /hpf (0 - 4) Urine Microscopic WBC 1 /HPF (0-5) Urine Squamous Epithelial Cells Few /hpf (<5) Urine Bacteria None seen /hpf (None Seen) Urine Glucose Normal mg/dL (Normal) Microbiology Microbiology Date/Time Source Procedure Growth Status 05/22/25 22:15 Sputum Gram Stain - Final Resulted 05/22/25 22:15 Sputum Respiratory Culture - Preliminary Resulted 05/16/25 13:14 Urine - Grewal [place] Urine Culture - Final Complete 05/09/25 11:22 Blood Blood Culture - Final NO GROWTH AFTER 5 DAYS OF INCUBATION. Complete 05/02/25 00:00 Nose MRSA Screen - Final Complete 04/30/25 14:30 Pleural Fluid Gram Stain - Final Complete 04/30/25 14:30 Pleural Fluid Body Fluid Culture - Final Complete Labs and/or images reviewed: Labs reviewed by me, Image(s) reviewed by me Assessment/Plan Assessment/Plan Impression: -choledocholithiasis -acute pancreatitis -small-bowel obstruction -dementia -cachexia -sepsis -COPD -GERD -Post op delirium -Accelerated HTN -A. fib Plan: Events: No events overnight. Long discussion made with the patient's [id number] three days ago regarding tracheostomy versus compassionate extubation. Awaiting for answered. -stop TPN. Continue tube feeding and increase rate. -potassium replacement -continue Reglan, add lactulose via NG tube -Continue TPN, IV fluid -Continue current abx -PPI -full-dose anticoagulation -continue bronchodilators -repeat labs and chest x-ray in a.m. Critical care time spent with patient discussing and formulating plan of care: 90 minutes. This does not include time spent performing procedures. This medical document was created using an electronic medical record system with [employer] system. Although this document has been carefully reviewed, there may still be some phonetic and typographical errors. These areas are purely typographical due to imperfections of the software programs, and do not reflect any compromise in the patient's medical care. Plan discussed with: Patient, Other (RN) My Orders Orders - JAYDEN HILL NP Procedure Category Date Status Time Nutritional PHA 05/26/25 Transmitted Supplements (Jevity 09:00 Potassium Effervesent PHA 05/26/25 Transmitted Tab (Klor-Con/Ef) 09:00 Basic Metabolic Panel LAB 05/27/25 Verified 04:00 Magnesium LAB 05/27/25 Verified 04:00 PTPTT LAB 05/27/25 Verified 04:00 Date of Service: May 26, 2025 Billing Provider: JAYDEN HILL NP Common Visit Codes: [id number] CARE 30-74 MIN JAYDEN HILL NP May 26, 2025 08:59
[2025-05-26] MEDS: POTASSIUM EFFERVESENT TAB 25 MEQ GT ONE (09:00)
--- NOTE | 2025-05-26 13:18 | DVHPN2 ---
Progress Note Date Seen: May 26, 2025 Medical Necessity Reason Pt with a Central, PICC or Fol: Yes The following are medically ne: PICC Line, Grewal Catheter Objective vital signs Vital Sign Date Time Temp Pulse Resp B/P (MAP) Pulse Ox O2 Delivery O2 Flow Rate FiO2 05/26/25 11:02 84 22 119/47 (71) 97 30 05/26/25 08:00 Mechanical Ventilator+ 05/26/25 04:00 98.5 98.5 05/24/25 18:00 30 Total Intake and Output 05/25/25 05/25/25 05/26/25 15:00 23:00 07:00 Intake Total 347.520 ml 1020.579 ml 787.764 ml Output Total 1200 ml 650 ml Balance 347.520 ml -179.421 ml 137.764 ml medications Current Medications Medications Dose Ordered Sig/Gregory Route Start Time Stop Time Status Last Admin Dose Admin Pantoprazole Sodium 40 mg DAILY IV 04/16/25 10:00 05/26/25 09:27 40 MG Sodium Chloride 10 ml QSHIFT@ IV 04/21/25 22:00 05/26/25 09:28 10 ML Albuterol 2.5 mg Q3HPRN PRN NEB 04/24/25 16:15 05/15/25 14:26 2.5 MG Morphine Sulfate 1 mg Q6HP PRN IV 04/30/25 10:30 05/02/25 17:58 1 MG Acetylcysteine 100 mg Q4HR NEB 05/05/25 10:00 UNV Enoxaparin Sodium 50 mg Q12HR SC 05/07/25 22:00 05/26/25 09:27 50 MG Acetaminophen 650 mg Q6HP PRN [place] 05/09/25 10:30 Vancomycin HCl 250 ml @ 200 mls/hr Q12H IV 05/09/25 18:00 Cancel Dextrose/Sodium Chloride 1,000 ml @ 30 mls/hr Q24H IV 05/10/25 18:15 05/25/25 18:05 30 MLS/HR Levalbuterol HCl 0.625 mg Q8HR NEB 05/11/25 14:00 05/26/25 05:52 0.625 MG Ipratropium [employer] 0.5 mg Q8HR NEB 05/11/25 14:00 05/26/25 05:52 0.5 MG Potassium Acetate 40 meq/Potassium Phosphate 35 meq/ Calcium Gluconate 6.975 meq/ Magnesium Sulfate 26 meq/ Multivitamins 10 ml/Chromium/ Copper/Manganese/ Zinc 1 ml/Amino Acids/Dextrose 1,160.4545 ml @ 48.6 mls/hr [id number] IV 05/14/25 22:00 05/15/25 21:59 Cancel Metoclopramide HCl 5 mg Q6HR IV 05/20/25 18:00 05/26/25 06:42 5 MG Lactulose 30 ml BID NG 05/21/25 10:00 05/26/25 09:28 30 ML Ceftriaxone Sodium 50 ml @ 100 mls/hr DAILY@09 IV 05/21/25 09:00 05/26/25 09:24 100 MLS/HR Fentanyl Citrate 250 ml @ 2.5 mls/hr Q24H IV 05/22/25 23:15 05/24/25 20:59 7.5 MLS/HR Norepinephrine Bitartrate 250 ml @ 3.75 mls/hr Q24H IV 05/23/25 03:30 05/24/25 02:59 15 MLS/HR Propofol 100 ml @ 1.563 mls/ hr Q24H IV 05/23/25 03:30 05/26/25 00:25 6.252 MLS/HR Artificial Tears 1 drop Q2HP PRN EACHEYE 05/24/25 13:15 Enteral Nutritional Formula 1,000 ml 30ML/HR GT 05/26/25 09:00 laboratory and microbiology Laboratory Tests 05/26/25 03:50 05/24/25 03:40 Test 05/26/25 03:50 Range/Units Serum Glucose 101 74-106 mg/dL Microbiology Date/Time Source Procedure Growth Status 05/22/25 22:15 Sputum Gram Stain - Final Complete 05/22/25 22:15 Sputum Respiratory Culture - Final Complete 05/16/25 13:14 Urine - Grewal Port Urine Culture - Final Complete 05/09/25 11:22 Blood Blood Culture - Final NO GROWTH AFTER 5 DAYS OF INCUBATION. Complete 05/02/25 00:00 Nose MRSA Screen - Final Complete 04/30/25 14:30 Pleural Fluid Gram Stain - Final Complete 04/30/25 14:30 Pleural Fluid Body Fluid Culture - Final Complete Problem List/Assessment/Plan Problem List/Assessment/Plan AFEBRILE VSS REMAINS INTUBATED ABD SOFT NON DISTENDED BM + CONTINUE SUPPORTIVE CARE FAMILY AWARE OF PT CONDITION NURSE AT BEDSIDE ONGOING PULM EVAL FR POSSIBLE CPAP AND EXTUBATION CLAMP NG CONTINUE CLOSE OBSERVATION Plan discussed with: Other Dietary Evaluation Review Recommendations by RD: PPN/TPN Comments: 1) Increase TPN to meet at least 75% estimated daily needs 2) Advance to cardiac diet when medically feasible 3) Follow-up with gastroenterology and neurology 4) Continue to monitor I&O, labs, and skin integrity Expected Outcomes/Goals: 1) nutrition support to meet at least 75% estimated daily needs 2) labs to improve 3) diet to advance 4) gradual wt gain 5) f/u in 2-3 days GLORIA MCNEAL MD May 26, 2025 13:18
--- NOTE | 2025-05-26 13:52 | DVHPN2 ---
Progress Note - Dictate Date Seen: May 26, 2025 Medical Necessity Reason Pt with a Central, PICC or Fol: Yes The following are medically ne: PICC Line, Grewal Catheter Subjective Patient is intubated sedated due to hypoxic respiratory failure Enteral tube feedings were started at 10 mL/hour advanced to 20 mL/hour Patient still has moderate gastric residual up to 300 mL Patient is getting IV TPN No bowel movement was recorded vital signs Vital Sign Date Time Temp Pulse Resp B/P (MAP) Pulse Ox O2 Delivery O2 Flow Rate FiO2 05/26/25 13:18 79 19 125/37 (66) 97 30 05/26/25 08:00 Mechanical Ventilator+ 05/26/25 04:00 98.5 98.5 05/24/25 18:00 30 Total Intake and Output 05/25/25 05/25/25 05/26/25 15:00 23:00 07:00 Intake Total 347.520 ml 1020.579 ml 787.764 ml Output Total 1200 ml 650 ml Balance 347.520 ml -179.421 ml 137.764 ml medications Current Medications Medications Dose Ordered Sig/Gregory Route Start Time Stop Time Status Last Admin Dose Admin Pantoprazole Sodium 40 mg DAILY IV 04/16/25 10:00 05/26/25 09:27 40 MG Sodium Chloride 10 ml QSHIFT@ IV 04/21/25 22:00 05/26/25 09:28 10 ML Albuterol 2.5 mg Q3HPRN PRN NEB 04/24/25 16:15 05/15/25 14:26 2.5 MG Morphine Sulfate 1 mg Q6HP PRN IV 04/30/25 10:30 05/02/25 17:58 1 MG Acetylcysteine 100 mg Q4HR NEB 05/05/25 10:00 UNV Enoxaparin Sodium 50 mg Q12HR SC 05/07/25 22:00 05/26/25 09:27 50 MG Acetaminophen 650 mg Q6HP PRN [place] 05/09/25 10:30 Vancomycin HCl 250 ml @ 200 mls/hr Q12H IV 05/09/25 18:00 Cancel Dextrose/Sodium Chloride 1,000 ml @ 30 mls/hr Q24H IV 05/10/25 18:15 05/25/25 18:05 30 MLS/HR Levalbuterol HCl 0.625 mg Q8HR NEB 05/11/25 14:00 05/26/25 13:17 0.625 MG Ipratropium [place] 0.5 mg Q8HR NEB 05/11/25 14:00 05/26/25 13:17 0.5 MG Potassium Acetate 40 meq/Potassium Phosphate 35 meq/ Calcium Gluconate 6.975 meq/ Magnesium Sulfate 26 meq/ Multivitamins 10 ml/Chromium/ Copper/Manganese/ Zinc 1 ml/Amino Acids/Dextrose 1,160.4545 ml @ 48.6 mls/hr [id number] IV 05/14/25 22:00 05/15/25 21:59 Cancel Metoclopramide HCl 5 mg Q6HR IV 05/20/25 18:00 05/26/25 06:42 5 MG Lactulose 30 ml BID NG 05/21/25 10:00 05/26/25 09:28 30 ML Ceftriaxone Sodium 50 ml @ 100 mls/hr DAILY@09 IV 05/21/25 09:00 05/26/25 09:24 100 MLS/HR Fentanyl Citrate 250 ml @ 2.5 mls/hr Q24H IV 05/22/25 23:15 05/24/25 20:59 7.5 MLS/HR Norepinephrine Bitartrate 250 ml @ 3.75 mls/hr Q24H IV 05/23/25 03:30 05/24/25 02:59 15 MLS/HR Propofol 100 ml @ 1.563 mls/ hr Q24H IV 05/23/25 03:30 05/26/25 00:25 6.252 MLS/HR Artificial Tears 1 drop Q2HP PRN EACHEYE 05/24/25 13:15 Enteral Nutritional Formula 1,000 ml 30ML/HR GT 05/26/25 09:00 objective General Appearance: Intubated sedated HEENT: PERRLA, EOMI Lungs: Decreased breath sound on left lower lung. High-flow at 50% FiO2 Cardiovascular: Normal S1, Normal S2 Abdomen: No tenderness, No hepatospenomegaly, hypoactive bowel sounds, surgical wound dry Genitourinary: No Apparent Abnormalities (Grewal catheter) Musculoskeletal: Normal sensory function, Normal motor function Extremities: No edema, Normal pulses, No tenderness/swelling laboratory and microbiology Laboratory Tests 05/26/25 03:50 05/24/25 03:40 Test 05/26/25 03:50 Range/Units Serum Glucose 101 74-106 mg/dL Problems(with codes): (1) Ileus (2) Choledocholithiasis (3) Urinary tract infection (4) Acute respiratory distress (5) Small bowel obstruction (6) COPD (chronic obstructive pulmonary disease) Prognosis Plan Continue IV TPN for now Gently advance tube feedings as tolerated Continue IV Reglan Overall her prognosis remains guarded Dietary Evaluation Review Recommendations by RD: PPN/TPN Comments: 1) Increase TPN to meet at least 75% estimated daily needs 2) Advance to cardiac diet when medically feasible 3) Follow-up with gastroenterology and neurology 4) Continue to monitor I&O, labs, and skin integrity Expected Outcomes/Goals: 1) nutrition support to meet at least 75% estimated daily needs 2) labs to improve 3) diet to advance 4) gradual wt gain 5) f/u in 2-3 days Plan discussed with: Other (ICU Nurse) JIL MCNEAL MD May 26, 2025 13:52
--- NOTE | 2025-05-26 16:39 | DVHPN2 ---
Progress Note - Dictate Date Seen: May 26, 2025 Medical Necessity Reason Pt with a Central, PICC or Fol: Yes The following are medically ne: PICC Line, Grewal Catheter vital signs Vital Sign Date Time Temp Pulse Resp B/P (MAP) Pulse Ox O2 Delivery O2 Flow Rate FiO2 05/26/25 16:02 138/59 05/26/25 15:10 83 21 97 30 05/26/25 14:00 Mechanical Ventilator+ 05/26/25 12:00 98.0 98.0 05/24/25 18:00 30 Total Intake and Output 05/25/25 05/25/25 05/26/25 15:00 23:00 07:00 Intake Total 347.520 ml 1020.579 ml 829.016 ml Output Total 1200 ml 650 ml Balance 347.520 ml -179.421 ml 179.016 ml medications Current Medications Medications Dose Ordered Sig/Gregory Route Start Time Stop Time Status Last Admin Dose Admin Pantoprazole Sodium 40 mg DAILY IV 04/16/25 10:00 05/26/25 09:27 40 MG Sodium Chloride 10 ml QSHIFT@10,22 IV 04/21/25 22:00 05/26/25 09:28 10 ML Albuterol 2.5 mg Q3HPRN PRN NEB 04/24/25 16:15 05/15/25 14:26 2.5 MG Morphine Sulfate 1 mg Q6HP PRN IV 04/30/25 10:30 05/02/25 17:58 1 MG Acetylcysteine 100 mg Q4HR NEB 05/05/25 10:00 UNV Enoxaparin Sodium 50 mg Q12HR [place] 05/07/25 22:00 05/26/25 09:27 50 MG Acetaminophen 650 mg Q6HP PRN [place] 05/09/25 10:30 Vancomycin HCl 250 ml @ 200 mls/hr Q12H IV 05/09/25 18:00 Cancel Dextrose/Sodium Chloride 1,000 ml @ 30 mls/hr Q24H IV 05/10/25 18:15 05/25/25 18:05 30 MLS/HR Levalbuterol HCl 0.625 mg Q8HR NEB 05/11/25 14:00 05/26/25 13:17 0.625 MG Ipratropium [place] 0.5 mg Q8HR NEB 05/11/25 14:00 05/26/25 13:17 0.5 MG Potassium Acetate 40 meq/Potassium Phosphate 35 meq/ Calcium Gluconate 6.975 meq/ Magnesium Sulfate 26 meq/ Multivitamins 10 ml/Chromium/ Copper/Manganese/ Zinc 1 ml/Amino Acids/Dextrose 1,160.4545 ml @ 48.6 mls/hr [id number] IV 05/14/25 22:00 05/15/25 21:59 Cancel Metoclopramide HCl 5 mg Q6HR IV 05/20/25 18:00 05/26/25 14:11 5 MG Lactulose 30 ml BID NG 05/21/25 10:00 05/26/25 09:28 30 ML Ceftriaxone Sodium 50 ml @ 100 mls/hr DAILY@09 IV 05/21/25 09:00 05/26/25 09:24 100 MLS/HR Fentanyl Citrate 250 ml @ 2.5 mls/hr Q24H IV 05/22/25 23:15 05/26/25 16:02 5 MLS/HR Norepinephrine Bitartrate 250 ml @ 3.75 mls/hr Q24H IV 05/23/25 03:30 05/24/25 02:59 15 MLS/HR Propofol 100 ml @ 1.563 mls/ hr Q24H IV 05/23/25 03:30 05/26/25 15:49 6.252 MLS/HR Artificial Tears 1 drop Q2HP PRN EACHEYE 05/24/25 13:15 Enteral Nutritional Formula 1,000 ml 30ML/HR GT 05/26/25 09:00 laboratory and microbiology Laboratory Tests 05/26/25 03:50 05/24/25 03:40 Test 05/26/25 03:50 Range/Units Serum Glucose 101 74-106 mg/dL Assessment/Plan Impression Acute hypoxemic respiratory failure Lung collapse Pneumonia Atelectasis SBO Patient seen and examined in ICU Events pt re-intubated on mech ventilation PEEP 5, FiO2 30% S/p sigmoidoscopy Labs and imaging reviewed ABG reviewed Management sedation per protocol ac volume control vent support adjust daily abg's and CXR Slow weaning from ventilator Continue antibiotics F/u cultures Bronchodilators Monitor renal function Monitor electrolytes Supplement as needed F/u general surgery DVT prophylaxis Prognosis questionable may need LTAC Critical care time 35 minutes Dietary Evaluation Review Recommendations by RD: PPN/TPN Comments: 1) Increase TPN to meet at least 75% estimated daily needs 2) Advance to cardiac diet when medically feasible 3) Follow-up with gastroenterology and neurology 4) Continue to monitor I&O, labs, and skin integrity Expected Outcomes/Goals: 1) nutrition support to meet at least 75% estimated daily needs 2) labs to improve 3) diet to advance 4) gradual wt gain 5) f/u in 2-3 days Plan discussed with: Other (rn) BRUNO GOLDMAN MD May 26, 2025 16:39
[2025-05-27] VITALS (107 sets, daily range): BP systolic 94–160; BP diastolic 38–70; PULSE 72–101; RESP 16–29; TEMP 98.4–100; O2SAT 92–100
[2025-05-27 04:35] LABS: Hematocrit 25.0 % (36.0-46.0); Hemoglobin 8.2 g/dL (12.2-16.2); Mean Corpuscular Hemoglobin 33.1 pg (28.0-32.0); Mean Corpuscular Volume 101.3 fL (80.0-100.0); Nucleated Red Blood Cells % 0.0 %
[2025-05-27 04:42] LABS: Anion Gap 9 (5-15); Carbon Dioxide 26 mmol/L (20-31); INR 1.07 (0.9-1.15); Partial Thromboplastin Time 36.5 SEC (24.5-34.5); Prothrombin Time 11.3 sec (9.3-11.8); Sodium 145 mmol/L (136-145)
--- NOTE | 2025-05-27 04:44 | DVH ---
CHEST RADIOGRAPH Indication: mechanical ventilation Technique: Single frontal view of the chest was obtained COMPARISON: XY CHEST PORTABLE on DOS: 05/26/25, XY CHEST PORTABLE on DOS: 05/24/25, XY CHEST PORTABLE on DOS: 05/22/25, XY CHEST PORTABLE on DOS: 05/21/25, XY CHEST PORTABLE on DOS: 05/20/25 FINDINGS: Lines and Tubes: Endotracheal tube, enteric catheter and right PICC in satisfactory position. Lungs: Bilateral lower lobe airspace disease. Pleura: Small left pleural effusion. No pneumothorax. Cardiomediastinal contours: Unremarkable Bones: Unremarkable IMPRESSION: Lines and tubes in satisfactory position. No significant interval change.
[2025-05-27 04:45] LABS: Calcium 8.0 mg/dL (8.7-10.4); Chloride 110 mmol/L (98-107); Potassium 3.3 mmol/L (3.5-5.1)
[2025-05-27 04:48] LABS: BUN/Creatinine Ratio 39.0 (10.0-20.0); Blood Urea Nitrogen 16 mg/dL (9-23); Glucose 95 mg/dL (74-106); Magnesium 1.7 mg/dL (1.6-2.6)
[2025-05-27] MEDS: POTASSIUM CHL 20MEQ/100ML 100 ML IV ONE (05:26)
[2025-05-27 09:19] LABS: Base Excess -1.6 mmol/L (-2.0-3.0)
--- NOTE | 2025-05-27 12:07 | DVHPN2 ---
Subjective Patient denies any symptoms at this time. Reviewed: Care Plan, H&P, Labs, Medications Changes from previous H/P or p: No Changes General: Per HPI Objective Vitals Vital Signs Date Time Temp Pulse Resp B/P (MAP) Pulse Ox O2 Delivery O2 Flow Rate FiO2 05/27/25 10:10 87 25 113/56 (75) 98 30 05/27/25 08:00 Mechanical Ventilator+ 05/27/25 04:00 98.4 98.4 Intake/Output Intake and Output 05/27/25 07:00 Intake Total 1477.232 ml Output Total 1650 ml Balance -172.768 ml IV Total 1067.232 ml Tube Feeding 410 ml Output Urine Total 1650 ml General Appearance: mild distress, Other (Intubated and sedated) HEENT: Atraumatic, PERRLA, Other Lungs: Clear to auscultation, Normal air movement, Other (Mechanical ventilation) Cardiovascular: Normal S1, Normal S2, Other (Fibrillation with controlled rate) Abdomen: No tenderness, No hepatospenomegaly, Other (Hypoactive bowel sounds.) Genitourinary: No Apparent Abnormalities (Grewal catheter) Musculoskeletal: Normal sensory function, Normal motor function Extremities: No edema, Normal pulses, No tenderness/swelling Neuro: Cranial nerves 3-12 NL, Other Skin: Dry, Intact, Wounds, Other (Surgical wound D&I) Psych/Mental Status: Mood NL Medications Current Medications Medications Dose Ordered Sig/Gregory Route Start Time Stop Time Status Last Admin Dose Admin Pantoprazole Sodium 40 mg DAILY IV 04/16/25 10:00 05/27/25 09:48 40 MG Sodium Chloride 10 ml QSHIFT@ IV 04/21/25 22:00 05/27/25 09:48 10 ML Albuterol 2.5 mg Q3HPRN PRN NEB 04/24/25 16:15 05/15/25 14:26 2.5 MG Morphine Sulfate 1 mg Q6HP PRN IV 04/30/25 10:30 05/02/25 17:58 1 MG Acetylcysteine 100 mg Q4HR NEB 05/05/25 10:00 UNV Enoxaparin Sodium 50 mg Q12HR SC 05/07/25 22:00 05/27/25 09:48 50 MG Acetaminophen 650 mg Q6HP PRN DC 05/09/25 10:30 Vancomycin HCl 250 ml @ 200 mls/hr Q12H IV 05/09/25 18:00 Cancel Dextrose/Sodium Chloride 1,000 ml @ 30 mls/hr Q24H IV 05/10/25 18:15 05/26/25 21:22 30 MLS/HR Levalbuterol HCl 0.625 mg Q8HR NEB 05/11/25 14:00 05/27/25 06:29 0.625 MG Ipratropium [place] 0.5 mg Q8HR NEB 05/11/25 14:00 05/27/25 06:30 0.5 MG Potassium Acetate 40 meq/Potassium Phosphate 35 meq/ Calcium Gluconate 6.975 meq/ Magnesium Sulfate 26 meq/ Multivitamins 10 ml/Chromium/ Copper/Manganese/ Zinc 1 ml/Amino Acids/Dextrose 1,160.4545 ml @ 48.6 mls/hr [id number] IV 05/14/25 22:00 05/15/25 21:59 Cancel Metoclopramide HCl 5 mg Q6HR IV 05/20/25 18:00 05/27/25 05:26 5 MG Lactulose 30 ml BID NG 05/21/25 10:00 05/27/25 09:48 30 ML Ceftriaxone Sodium 50 ml @ 100 mls/hr DAILY@09 IV 05/21/25 09:00 05/27/25 08:50 100 MLS/HR Fentanyl Citrate 250 ml @ 2.5 mls/hr Q24H IV 05/22/25 23:15 05/26/25 16:02 5 MLS/HR Norepinephrine Bitartrate 250 ml @ 3.75 mls/hr Q24H IV 05/23/25 03:30 05/24/25 02:59 15 MLS/HR Propofol 100 ml @ 1.563 mls/ hr Q24H IV 05/23/25 03:30 05/27/25 02:23 7.815 MLS/HR Artificial Tears 1 drop Q2HP PRN EACHEYE 05/24/25 13:15 Enteral Nutritional Formula 1,000 ml 30ML/HR GT 05/26/25 09:00 Laboratory Results Laboratory Tests 05/27/25 03:50 Chemistry Test 05/27/25 03:50 Calcium Level 8.0 mg/dL (8.7-10.4) L Magnesium Level 1.7 mg/dL (1.6-2.6) Coagulation Test 05/27/25 03:50 Prothrombin Time 11.3 sec (9.3-11.8) Prothrombin Time INR 1.07 (0.9-1.15) Activated Partial Thromboplast Time 36.5 SEC (24.5-34.5) H Urinalysis Test 04/15/25 15:45 05/11/25 14:35 Urine Amorphous Crystals Few /hpf (None Seen) Urine Hyaline Casts Few /lpf (0 - 2) Urine Mucus Few (None Seen) Urine Color Light-yellow (Yellow) Urine Clarity Clear (Clear) Urine pH 7.0 (5.0-9.0) Urine Specific [place] 1.021 (1.001-1.035) Urine Protein Negative (Negative) Urine Ketones Negative (Negative) Urine Blood 1+ /uL (Negative) H Urine Nitrite Negative (Negative) Urine Bilirubin Negative (Negative) Urine Urobilinogen Normal mg/dL (Negative) Urine Leukocyte Esterase Negative /uL (Negative) Urine RBC 55 /hpf (0 - 4) Urine Microscopic WBC 1 /HPF (0-5) Urine Squamous Epithelial Cells Few /hpf (<5) Urine Bacteria None seen /hpf (None Seen) Urine Glucose Normal mg/dL (Normal) Blood Gas Results Test 05/27/25 08:32 Arterial Blood pH 7.427 (7.350-7.450) FiO2 % 30.0 Microbiology Microbiology Date/Time Source Procedure Growth Status 05/22/25 22:15 Sputum Gram Stain - Final Complete 05/22/25 22:15 Sputum Respiratory Culture - Final Complete 05/16/25 13:14 Urine - [place] Urine Culture - Final Complete 05/09/25 11:22 Blood Blood Culture - Final NO GROWTH AFTER 5 DAYS OF INCUBATION. Complete 05/02/25 00:00 Nose MRSA Screen - Final Complete 04/30/25 14:30 Pleural Fluid Gram Stain - Final Complete 04/30/25 14:30 Pleural Fluid Body Fluid Culture - Final Complete Labs and/or images reviewed: Labs reviewed by me, Image(s) reviewed by me Assessment/Plan Assessment/Plan Impression: -choledocholithiasis -acute pancreatitis -small-bowel obstruction -dementia -cachexia -sepsis -COPD -GERD -Post op delirium -Accelerated HTN -A. fib Plan: Events: No events overnight. -stop TPN. Continue tube feeding and increase rate. -potassium replacement -continue Reglan, add lactulose via NG tube -continue tube feeding -Continue current abx -PPI -full-dose anticoagulation -continue bronchodilators -repeat labs and chest x-ray in a.m. -Discussed plan of care with patient's family. At this time, family is agreeable to DNR, DNI, but continue with spontaneous breathing trial and medical management. Critical care time spent with patient discussing and formulating plan of care: 90 minutes. This does not include time spent performing procedures. This medical document was created using an electronic medical record system with [employer] dictation system. Although this document has been carefully reviewed, there may still be some phonetic and typographical errors. These areas are purely typographical due to imperfections of the software programs, and do not reflect any compromise in the patient's medical care. Plan discussed with: Patient, Other (RN) My Orders Orders - JAYDEN HILL NP Procedure Category Date Status Time Chest Portable XY 05/27/25 Resulted 04:00 Cpap/Sed Vacation Med ORDERS 05/27/25 Transmitted Weaning 11:57 Cpap Trial For Am ORDERS 05/27/25 Transmitted 11:57 Date of Service: May 27, 2025 Billing Provider: JAYDEN IHLL NP Common Visit Codes: 69420-[id number] CARE 30-74 MIN, 48146-ALOWSFHO CARE-EACH +30MIN JAYDEN HILL NP May 27, 2025 12:07
--- NOTE | 2025-05-27 15:03 | DVHPN2 ---
Progress Note Date Seen: May 27, 2025 Medical Necessity Reason Pt with a Central, PICC or Fol: Yes The following are medically ne: PICC Line, Grewal Catheter Objective vital signs Vital Sign Date Time Temp Pulse Resp B/P (MAP) Pulse Ox O2 Delivery O2 Flow Rate FiO2 05/27/25 13:48 80 22 128/52 (77) 97 30 05/27/25 12:00 Mechanical Ventilator+ 05/27/25 04:00 98.4 98.4 Total Intake and Output 05/26/25 05/26/25 05/27/25 15:00 23:00 07:00 Intake Total 420.016 ml 511.266 ml 545.950 ml Output Total 1150 ml 500 ml Balance 420.016 ml -638.734 ml 45.950 ml medications Current Medications Medications Dose Ordered Sig/Gregory Route Start Time Stop Time Status Last Admin Dose Admin Pantoprazole Sodium 40 mg DAILY IV 04/16/25 10:00 05/27/25 09:48 40 MG Sodium Chloride 10 ml QSHIFT@10,22 IV 04/21/25 22:00 05/27/25 09:48 10 ML Albuterol 2.5 mg Q3HPRN PRN NEB 04/24/25 16:15 05/15/25 14:26 2.5 MG Morphine Sulfate 1 mg Q6HP PRN IV 04/30/25 10:30 05/02/25 17:58 1 MG Acetylcysteine 100 mg Q4HR NEB 05/05/25 10:00 UNV Enoxaparin Sodium 50 mg Q12HR SC 05/07/25 22:00 05/27/25 09:48 50 MG Acetaminophen [address] 05/09/25 10:30 Vancomycin HCl 250 ml @ 200 mls/hr Q12H IV 05/09/25 18:00 Cancel Dextrose/Sodium Chloride 1,000 ml @ 30 mls/hr Q24H IV 05/10/25 18:15 05/26/25 21:22 30 MLS/HR Levalbuterol HCl 0.625 mg Q8HR NEB 05/11/25 14:00 05/27/25 13:48 0.625 MG Ipratropium [place] 0.5 mg Q8HR NEB 05/11/25 14:00 05/27/25 13:48 0.5 MG Potassium Acetate 40 meq/Potassium Phosphate 35 meq/ Calcium Gluconate 6.975 meq/ Magnesium Sulfate 26 meq/ Multivitamins 10 ml/Chromium/ Copper/Manganese/ Zinc 1 ml/Amino Acids/Dextrose 1,160.4545 ml @ 48.6 mls/hr [id number] IV 05/14/25 22:00 05/15/25 21:59 Cancel Metoclopramide HCl 5 mg Q6HR IV 05/20/25 18:00 05/27/25 12:22 5 MG Lactulose 30 ml BID NG 05/21/25 10:00 05/27/25 09:48 30 ML Ceftriaxone Sodium 50 ml @ 100 mls/hr DAILY@09 IV 05/21/25 09:00 05/27/25 08:50 100 MLS/HR Fentanyl Citrate 250 ml @ 2.5 mls/hr Q24H IV 05/22/25 23:15 05/26/25 16:02 5 MLS/HR Norepinephrine Bitartrate 250 ml @ 3.75 mls/hr Q24H IV 05/23/25 03:30 05/24/25 02:59 15 MLS/HR Propofol 100 ml @ 1.563 mls/ hr Q24H IV 05/23/25 03:30 05/27/25 02:23 7.815 MLS/HR Artificial Tears 1 drop Q2HP PRN EACHEYE 05/24/25 13:15 Enteral Nutritional Formula 1,000 ml 30ML/HR GT 05/26/25 09:00 laboratory and microbiology Laboratory Tests 05/27/25 03:50 Test 05/27/25 03:50 Range/Units Serum Glucose 95 74-106 mg/dL Microbiology Date/Time Source Procedure Growth Status 05/22/25 22:15 Sputum Gram Stain - Final Complete 05/22/25 22:15 Sputum Respiratory Culture - Final Complete 05/16/25 13:14 Urine - [place] Urine Culture - Final Complete 05/09/25 11:22 Blood Blood Culture - Final NO GROWTH AFTER 5 DAYS OF INCUBATION. Complete 05/02/25 00:00 Nose MRSA Screen - Final Complete 04/30/25 14:30 Pleural Fluid Gram Stain - Final Complete 04/30/25 14:30 Pleural Fluid Body Fluid Culture - Final Complete Problem List/Assessment/Plan Problem List/Assessment/Plan AFEBRILE VSS REMAINS INTUBATED ABD SOFT NON DISTENDED BM + MARIANN TUBE FEEDS CONTINUE SUPPORTIVE CARE FAMILY AWARE OF PT CONDITION NURSE AT BEDSIDE ONGOING PULM EVAL FR POSSIBLE CPAP AND EXTUBATION CONTINUE CLOSE OBSERVATION Plan discussed with: Other Dietary Evaluation Review Recommendations by RD: PPN/TPN Comments: 1) Increase TPN to meet at least 75% estimated daily needs 2) Advance to cardiac diet when medically feasible 3) Follow-up with gastroenterology and neurology 4) Continue to monitor I&O, labs, and skin integrity Expected Outcomes/Goals: 1) nutrition support to meet at least 75% estimated daily needs 2) labs to improve 3) diet to advance 4) gradual wt gain 5) f/u in 2-3 days GLORIA MCNEAL MD May 27, 2025 15:03
--- NOTE | 2025-05-27 17:27 | DVHPN2 ---
Progress Note - Dictate Date Seen: May 27, 2025 Medical Necessity Reason Pt with a Central, PICC or Fol: Yes The following are medically ne: PICC Line, Grewal Catheter vital signs Vital Sign Date Time Temp Pulse Resp B/P (MAP) Pulse Ox O2 Delivery O2 Flow Rate FiO2 05/27/25 17:00 88 28 141/55 (83) 96 05/27/25 16:00 Mechanical Ventilator+ 30 30 05/27/25 16:00 98.7 98.7 Total Intake and Output 05/26/25 05/26/25 05/27/25 15:00 23:00 07:00 Intake Total 420.016 ml 511.266 ml 583.139 ml Output Total 1150 ml 500 ml Balance 420.016 ml -638.734 ml 83.139 ml medications Current Medications Medications Dose Ordered Sig/Gregory Route Start Time Stop Time Status Last Admin Dose Admin Pantoprazole Sodium 40 mg DAILY IV 04/16/25 10:00 05/27/25 09:48 40 MG Sodium Chloride 10 ml QSHIFT@ IV 04/21/25 22:00 05/27/25 09:48 10 ML Albuterol 2.5 mg Q3HPRN PRN NEB 04/24/25 16:15 05/15/25 14:26 2.5 MG Morphine Sulfate 1 mg Q6HP PRN IV 04/30/25 10:30 05/02/25 17:58 1 MG Acetylcysteine 100 mg Q4HR NEB 05/05/25 10:00 UNV Enoxaparin Sodium 50 mg Q12HR SC 05/07/25 22:00 05/27/25 09:48 50 MG Acetaminophen 650 mg Q6HP PRN [place] 05/09/25 10:30 Vancomycin HCl 250 ml @ 200 mls/hr Q12H IV 05/09/25 18:00 Cancel Dextrose/Sodium Chloride 1,000 ml @ 30 mls/hr Q24H IV 05/10/25 18:15 05/26/25 21:22 30 MLS/HR Levalbuterol HCl 0.625 mg Q8HR NEB 05/11/25 14:00 05/27/25 13:48 0.625 MG Ipratropium [place] 0.5 mg Q8HR NEB 05/11/25 14:00 05/27/25 13:48 0.5 MG Potassium Acetate 40 meq/Potassium Phosphate 35 meq/ Calcium Gluconate 6.975 meq/ Magnesium Sulfate 26 meq/ Multivitamins 10 ml/Chromium/ Copper/Manganese/ Zinc 1 ml/Amino Acids/Dextrose 1,160.4545 ml @ 48.6 mls/hr [id number] IV 05/14/25 22:00 05/15/25 21:59 Cancel Metoclopramide HCl 5 mg Q6HR IV 05/20/25 18:00 05/27/25 12:22 5 MG Lactulose 30 ml BID NG 05/21/25 10:00 05/27/25 09:48 30 ML Ceftriaxone Sodium 50 ml @ 100 mls/hr DAILY@09 IV 05/21/25 09:00 05/27/25 08:50 100 MLS/HR Fentanyl Citrate 250 ml @ 2.5 mls/hr Q24H IV 05/22/25 23:15 05/26/25 16:02 5 MLS/HR Norepinephrine Bitartrate 250 ml @ 3.75 mls/hr Q24H IV 05/23/25 03:30 05/24/25 02:59 15 MLS/HR Propofol 100 ml @ 1.563 mls/ hr Q24H IV 05/23/25 03:30 05/27/25 16:13 3.126 MLS/HR Artificial Tears 1 drop Q2HP PRN EACHEYE 05/24/25 13:15 Enteral Nutritional Formula 1,000 ml 30ML/HR GT 05/26/25 09:00 laboratory and microbiology Laboratory Tests 05/27/25 03:50 Test 05/27/25 03:50 Range/Units Serum Glucose 95 74-106 mg/dL Assessment/Plan Impression Acute hypoxemic respiratory failure Lung collapse Pneumonia Atelectasis SBO Patient seen and examined in ICU Events [facility] PEEP 5, FiO2 30% S/p sigmoidoscopy Labs and imaging reviewed ABG reviewed Management sedation per protocol ac volume control vent support adjust daily abg's and CXR Slow weaning from ventilator Continue antibiotics F/u cultures Bronchodilators Monitor renal function Monitor electrolytes Supplement as needed F/u general surgery DVT prophylaxis Prognosis questionable may need LTAC Critical care time 35 minutes Dietary Evaluation Review Recommendations by RD: PPN/TPN Comments: 1) Increase TPN to meet at least 75% estimated daily needs 2) Advance to cardiac diet when medically feasible 3) Follow-up with gastroenterology and neurology 4) Continue to monitor I&O, labs, and skin integrity Expected Outcomes/Goals: 1) nutrition support to meet at least 75% estimated daily needs 2) labs to improve 3) diet to advance 4) gradual wt gain 5) f/u in 2-3 days Plan discussed with: Other (Rn) BRUNO GOLDMAN MD May 27, 2025 17:26
--- NOTE | 2025-05-27 21:42 | DVHPN2 ---
Progress Note - Dictate Date Seen: May 27, 2025 Medical Necessity Reason Pt with a Central, PICC or Fol: Yes The following are medically ne: PICC Line, Grewal Catheter Subjective Patient is intubated sedated due to hypoxic respiratory failure Enteral tube feedings were started at 10 mL/hour advanced to 20 mL/hour Pt had 2 BMs today Patient is getting IV TPN vital signs Vital Sign Date Time Temp Pulse Resp B/P (MAP) Pulse Ox O2 Delivery O2 Flow Rate FiO2 05/27/25 20:45 93 25 131/51 (77) 97 05/27/25 20:37 30 05/27/25 20:00 100.0 100.0 05/27/25 20:00 Mechanical Ventilator+ Total Intake and Output 05/26/25 05/26/25 05/27/25 15:00 23:00 07:00 Intake Total 420.016 ml 511.266 ml 583.139 ml Output Total 1150 ml 500 ml Balance 420.016 ml -638.734 ml 83.139 ml medications Current Medications Medications Dose Ordered Sig/Gregory Route Start Time Stop Time Status Last Admin Dose Admin Pantoprazole Sodium 40 mg DAILY IV 04/16/25 10:00 05/27/25 09:48 40 MG Sodium Chloride 10 ml QSHIFT@10,22 IV 04/21/25 22:00 05/27/25 21:28 10 ML Albuterol 2.5 mg Q3HPRN PRN NEB 04/24/25 16:15 05/15/25 14:26 2.5 MG Morphine Sulfate 1 mg Q6HP PRN IV 04/30/25 10:30 05/02/25 17:58 1 MG Acetylcysteine 100 mg Q4HR NEB 05/05/25 10:00 UNV Enoxaparin Sodium 50 mg Q12HR SC 05/07/25 22:00 05/27/25 21:28 50 MG Acetaminophen 650 mg Q6HP PRN [place] 05/09/25 10:30 Vancomycin HCl 250 ml @ 200 mls/hr Q12H IV 05/09/25 18:00 Cancel Dextrose/Sodium Chloride 1,000 ml @ 30 mls/hr Q24H IV 05/10/25 18:15 05/26/25 21:22 30 MLS/HR Levalbuterol HCl 0.625 mg Q8HR NEB 05/11/25 14:00 05/27/25 18:26 0.625 MG Ipratropium [place] 0.5 mg Q8HR NEB 05/11/25 14:00 05/27/25 18:26 0.5 MG Potassium Acetate 40 meq/Potassium Phosphate 35 meq/ Calcium Gluconate 6.975 meq/ Magnesium Sulfate 26 meq/ Multivitamins 10 ml/Chromium/ Copper/Manganese/ Zinc 1 ml/Amino Acids/Dextrose 1,160.4545 ml @ 48.6 mls/hr [id number] IV 05/14/25 22:00 05/15/25 21:59 Cancel Metoclopramide HCl 5 mg Q6HR IV 05/20/25 18:00 05/27/25 17:42 5 MG Lactulose 30 ml BID NG 05/21/25 10:00 05/27/25 09:48 30 ML Ceftriaxone Sodium 50 ml @ 100 mls/hr DAILY@09 IV 05/21/25 09:00 05/27/25 08:50 100 MLS/HR Fentanyl Citrate 250 ml @ 2.5 mls/hr Q24H IV 05/22/25 23:15 05/26/25 16:02 5 MLS/HR Norepinephrine Bitartrate 250 ml @ 3.75 mls/hr Q24H IV 05/23/25 03:30 05/24/25 02:59 15 MLS/HR Propofol 100 ml @ 1.563 mls/ hr Q24H IV 05/23/25 03:30 05/27/25 16:13 3.126 MLS/HR Artificial Tears 1 drop Q2HP PRN EACHEYE 05/24/25 13:15 Enteral Nutritional Formula 1,000 ml 30ML/HR GT 05/26/25 09:00 objective General Appearance: Intubated sedated HEENT: PERRLA, EOMI Lungs: Decreased breath sound on left lower lung. High-flow at 50% FiO2 Cardiovascular: Normal S1, Normal S2 Abdomen: No tenderness, No hepatospenomegaly, hypoactive bowel sounds, surgical wound dry Genitourinary: No Apparent Abnormalities (Grewal catheter) Musculoskeletal: Normal sensory function, Normal motor function Extremities: No edema, Normal pulses, No tenderness/swelling laboratory and microbiology Laboratory Tests 05/27/25 03:50 Test 05/27/25 03:50 Range/Units Serum Glucose 95 74-106 mg/dL Problems(with codes): (1) Ileus (2) Choledocholithiasis (3) Acute respiratory distress (4) Small bowel obstruction (5) COPD (chronic obstructive pulmonary disease) Prognosis Plan Continue IV TPN for now Gently advance tube feedings as tolerated Decrease IV Reglan to q 12 hrs Discontinue Lactulose Overall her prognosis remains guarded Dietary Evaluation Review Recommendations by RD: PPN/TPN Comments: 1) Increase TPN to meet at least 75% estimated daily needs 2) Advance to cardiac diet when medically feasible 3) Follow-up with gastroenterology and neurology 4) Continue to monitor I&O, labs, and skin integrity Expected Outcomes/Goals: 1) nutrition support to meet at least 75% estimated daily needs 2) labs to improve 3) diet to advance 4) gradual wt gain 5) f/u in 2-3 days Plan discussed with: Other (ICU Nurse) JIL MCNEAL MD May 27, 2025 21:42
[2025-05-28] VITALS (111 sets, daily range): BP systolic 106–159; BP diastolic 45–75; PULSE 71–102; RESP 14–34; TEMP 98.3–100; O2SAT 91–100
[2025-05-28] MEDS: Jevity 1.2 Cal/Fiber 1 Liter GT SCH (03:19)
[2025-05-28 03:42] LABS: Nucleated Red Blood Cells % 0.0 %
[2025-05-28 03:46] LABS: Hematocrit 24.4 % (36.0-46.0); Hemoglobin 8.3 g/dL (12.2-16.2); Mean Corpuscular Hemoglobin 34.3 pg (28.0-32.0); Mean Corpuscular Volume 100.8 fL (80.0-100.0)
[2025-05-28 03:51] LABS: Anion Gap 9 (5-15); Carbon Dioxide 28 mmol/L (20-31)
[2025-05-28 03:57] LABS: BUN/Creatinine Ratio 35.3 (10.0-20.0); Blood Urea Nitrogen 12 mg/dL (9-23); Glucose 104 mg/dL (74-106)
[2025-05-28 03:58] LABS: Calcium 7.9 mg/dL (8.7-10.4); Chloride 108 mmol/L (98-107); Potassium 3.3 mmol/L (3.5-5.1); Sodium 145 mmol/L (136-145)
[2025-05-28 04:00] LABS: Magnesium 1.6 mg/dL (1.6-2.6)
--- NOTE | 2025-05-28 04:43 | DVH ---
CHEST RADIOGRAPH Indication: mechanical ventilation Technique: Single frontal view of the chest was obtained COMPARISON: XY CHEST PORTABLE on DOS: 05/27/25, XY CHEST PORTABLE on DOS: 05/26/25, XY CHEST PORTABLE on DOS: 05/24/25, XY CHEST PORTABLE on DOS: 05/22/25, XY CHEST PORTABLE on DOS: 05/21/25 FINDINGS: Lines and Tubes: Unchanged with endotracheal tube tip projecting approximately 4.1 cm above the level of the [place]. Lungs: Stable appearing small bilateral pleural effusions and bibasilar pulmonary airspace disease with Persistent diffuse increased prominence of the pulmonary vasculature. No pneumothorax. Cardiomediastinal contours: Unremarkable Bones: Unremarkable IMPRESSION: 1. Stable appearing small bilateral pleural effusions and bibasilar pulmonary airspace disease with persistent diffuse increased prominence of the pulmonary vasculature. 2. Lines and tubes unchanged.
[2025-05-28] MEDS: MAGNESIUM SULFATE 1GM/100ML 100 ML IV SCH (05:07)
[2025-05-28] MEDS: POTASSIUM CHL 20MEQ/100ML 100 ML IV ONE (06:56)
[2025-05-28 09:35] LABS: Base Excess 0.2 mmol/L (-2.0-3.0)
--- NOTE | 2025-05-28 13:27 | DVHPN2 ---
Subjective Patient denies any symptoms at this time. Reviewed: Care Plan, H&P, Labs, Medications Changes from previous H/P or p: No Changes General: Per HPI Objective Vitals Vital Signs Date Time Temp Pulse Resp B/P (MAP) Pulse Ox O2 Delivery O2 Flow Rate FiO2 05/28/25 12:45 84 22 141/59 (86) 96 05/28/25 12:04 30 05/28/25 12:00 Mechanical Ventilator+ 05/28/25 08:00 98.3 98.3 Intake/Output Intake and Output 05/28/25 07:00 Intake Total 1789.150 ml Output Total 2000 ml Balance -210.850 ml Intake Oral 55 ml IV Total 998.150 ml Tube Feeding 736 ml Output Urine Total 2000 ml # Bowel Movements 2 General Appearance: mild distress, Other (Intubated and sedated) HEENT: Atraumatic, PERRLA, Other Lungs: Clear to auscultation, Normal air movement, Other (Mechanical ventilation) Cardiovascular: Normal S1, Normal S2, Other (Fibrillation with controlled rate) Abdomen: No tenderness, No hepatospenomegaly, Other (Hypoactive bowel sounds.) Genitourinary: No Apparent Abnormalities (Grewal catheter) Musculoskeletal: Normal sensory function, Normal motor function Extremities: No edema, Normal pulses, No tenderness/swelling Neuro: Cranial nerves 3-12 NL, Other Skin: Dry, Intact, Wounds, Other (Surgical wound D&I) Psych/Mental Status: Mood NL Medications Current Medications Medications Dose Ordered Sig/Gregory Route Start Time Stop Time Status Last Admin Dose Admin Pantoprazole Sodium 40 mg DAILY IV 04/16/25 10:00 05/28/25 09:59 40 MG Sodium Chloride 10 ml QSHIFT@10,22 IV 04/21/25 22:00 05/28/25 10:00 10 ML Albuterol 2.5 mg Q3HPRN PRN NEB 04/24/25 16:15 05/28/25 06:30 2.5 MG Morphine Sulfate 1 mg Q6HP PRN IV 04/30/25 10:30 05/02/25 17:58 1 MG Acetylcysteine 100 mg Q4HR NEB 05/05/25 10:00 UNV Enoxaparin Sodium 50 mg Q12HR SC 05/07/25 22:00 05/28/25 10:00 50 MG Acetaminophen 650 mg Q6HP PRN [place] 05/09/25 10:30 Vancomycin HCl 250 ml @ 200 mls/hr Q12H IV 05/09/25 18:00 Cancel Dextrose/Sodium Chloride 1,000 ml @ 30 mls/hr Q24H IV 05/10/25 18:15 05/28/25 03:10 30 MLS/HR Levalbuterol HCl 0.625 mg Q8HR NEB 05/11/25 14:00 05/28/25 13:20 0.625 MG Ipratropium [place] 0.5 mg Q8HR NEB 05/11/25 14:00 05/28/25 13:20 0.5 MG Potassium Acetate 40 meq/Potassium Phosphate 35 meq/ Calcium Gluconate 6.975 meq/ Magnesium Sulfate 26 meq/ Multivitamins 10 ml/Chromium/ Copper/Manganese/ Zinc 1 ml/Amino Acids/Dextrose 1,160.4545 ml @ 48.6 mls/hr [id number] IV 05/14/25 22:00 05/15/25 21:59 Cancel Metoclopramide HCl 5 mg Q6HR IV 05/20/25 18:00 05/28/25 13:10 5 MG Lactulose 30 ml BID NG 05/21/25 10:00 05/28/25 09:59 30 ML Ceftriaxone Sodium 50 ml @ 100 mls/hr DAILY@09 IV 05/21/25 09:00 05/28/25 09:59 100 MLS/HR Fentanyl Citrate 250 ml @ 2.5 mls/hr Q24H IV 05/22/25 23:15 05/28/25 11:11 2.5 MLS/HR Norepinephrine Bitartrate 250 ml @ 3.75 mls/hr Q24H IV 05/23/25 03:30 05/24/25 02:59 15 MLS/HR Propofol 100 ml @ 1.563 mls/ hr Q24H IV 05/23/25 03:30 05/28/25 06:22 3.126 MLS/HR Artificial Tears 1 drop Q2HP PRN EACHEYE 05/24/25 13:15 Enteral Nutritional Formula 1,000 ml 30ML/HR GT 05/26/25 09:00 05/28/25 03:19 1,000 ML Laboratory Results Laboratory Tests 05/28/25 03:02 Chemistry Test 05/28/25 03:02 Calcium Level 7.9 mg/dL (8.7-10.4) L Magnesium Level 1.6 mg/dL (1.6-2.6) Urinalysis Test 04/15/25 15:45 05/11/25 14:35 Urine Amorphous Crystals Few /hpf (None Seen) Urine Hyaline Casts Few /lpf (0 - 2) Urine Mucus Few (None Seen) Urine Color Light-yellow (Yellow) Urine Clarity Clear (Clear) Urine pH 7.0 (5.0-9.0) Urine Specific [place] 1.021 (1.001-1.035) Urine Protein Negative (Negative) Urine Ketones Negative (Negative) Urine Blood 1+ /uL (Negative) H Urine Nitrite Negative (Negative) Urine Bilirubin Negative (Negative) Urine Urobilinogen Normal mg/dL (Negative) Urine Leukocyte Esterase Negative /uL (Negative) Urine RBC 55 /hpf (0 - 4) Urine Microscopic WBC 1 /HPF (0-5) Urine Squamous Epithelial Cells Few /hpf (<5) Urine Bacteria None seen /hpf (None Seen) Urine Glucose Normal mg/dL (Normal) Blood Gas Results Test 05/28/25 09:24 Arterial Blood pH 7.493 (7.350-7.450) FiO2 % 30.0 Microbiology Microbiology Date/Time Source Procedure Growth Status 05/22/25 22:15 Sputum Gram Stain - Final Complete 05/22/25 22:15 Sputum Respiratory Culture - Final Complete 05/16/25 13:14 Urine - Grewal Port Urine Culture - Final Complete 05/09/25 11:22 Blood Blood Culture - Final NO GROWTH AFTER 5 DAYS OF INCUBATION. Complete 05/02/25 00:00 Nose MRSA Screen - Final Complete 04/30/25 14:30 Pleural Fluid Gram Stain - Final Complete 04/30/25 14:30 Pleural Fluid Body Fluid Culture - Final Complete Labs and/or images reviewed: Labs reviewed by me, Image(s) reviewed by me Assessment/Plan Assessment/Plan Impression: -choledocholithiasis -acute pancreatitis -small-bowel obstruction -dementia -cachexia -sepsis -COPD -GERD -Post op delirium -Accelerated HTN -A. fib Plan: Events: No events overnight. -stop TPN. Continue tube feeding and increase rate. -potassium replacement -continue Reglan, add lactulose via NG tube -continue tube feeding -Continue current abx -PPI -full-dose anticoagulation -continue bronchodilators -repeat labs and chest x-ray in a.m. -Discussed plan of care with patient's family. Had repeat discussion regarding code status. At this time they are agreeable to DNR/DNI status. They wished to continue all medical modalities. This was also witnessed by primary nurse, [place]. Critical care time spent with patient discussing and formulating plan of care: 90 minutes. This does not include time spent performing procedures. This medical document was created using an electronic medical record system with [employer] dictation system. Although this document has been carefully reviewed, there may still be some phonetic and typographical errors. These areas are purely typographical due to imperfections of the software programs, and do not reflect any compromise in the patient's medical care. Plan discussed with: Patient, Other (RN) My Orders Orders - JAYDEN HILL NP Procedure Category Date Status Time Cpap/Sed Vacation Med ORDERS 05/28/25 Transmitted Weaning 08:35 Cpap Trial For Am ORDERS 05/28/25 Transmitted 08:35 Cpap Trial For Am ORDERS 05/28/25 Transmitted 09:25 Date of Service: May 28, 2025 Billing Provider: JAYDEN HILL NP Common Visit Codes: 93127-SFTJCKER CARE 30-74 MIN JAYDEN HILL NP May 28, 2025 13:27
--- NOTE | 2025-05-28 17:18 | DVHPN2 ---
Progress Note - Dictate Date Seen: May 28, 2025 Medical Necessity Reason Pt with a Central, PICC or Fol: Yes The following are medically ne: PICC Line, Grewal Catheter vital signs Vital Sign Date Time Temp Pulse Resp B/P (MAP) Pulse Ox O2 Delivery O2 Flow Rate FiO2 05/28/25 15:28 79 21 153/51 (85) 96 30 05/28/25 14:00 Mechanical Ventilator+ 05/28/25 08:00 98.3 98.3 Total Intake and Output 05/27/25 05/27/25 05/28/25 15:00 23:00 07:00 Intake Total 369.386 ml 635.008 ml 784.756 ml Output Total 700 ml 1300 ml Balance 369.386 ml -64.992 ml -515.244 ml medications Current Medications Medications Dose Ordered Sig/Gregory Route Start Time Stop Time Status Last Admin Dose Admin Pantoprazole Sodium 40 mg DAILY IV 04/16/25 10:00 05/28/25 09:59 40 MG Sodium Chloride 10 ml QSHIFT@ IV 04/21/25 22:00 05/28/25 10:00 10 ML Albuterol 2.5 mg Q3HPRN PRN NEB 04/24/25 16:15 05/28/25 06:30 2.5 MG Morphine Sulfate 1 mg Q6HP PRN IV 04/30/25 10:30 05/02/25 17:58 1 MG Acetylcysteine 100 mg Q4HR NEB 05/05/25 10:00 UNV Enoxaparin Sodium 50 mg Q12HR SC 05/07/25 22:00 05/28/25 10:00 50 MG Acetaminophen 650 mg Q6HP PRN PA 05/09/25 10:30 Vancomycin HCl 250 ml @ 200 mls/hr Q12H IV 05/09/25 18:00 Cancel Dextrose/Sodium Chloride 1,000 ml @ 30 mls/hr Q24H IV 05/10/25 18:15 05/28/25 03:10 30 MLS/HR Levalbuterol HCl 0.625 mg Q8HR NEB 05/11/25 14:00 05/28/25 13:20 0.625 MG Ipratropium [place] 0.5 mg Q8HR NEB 05/11/25 14:00 05/28/25 13:20 0.5 MG Potassium Acetate 40 meq/Potassium Phosphate 35 meq/ Calcium Gluconate 6.975 meq/ Magnesium Sulfate 26 meq/ Multivitamins 10 ml/Chromium/ Copper/Manganese/ Zinc 1 ml/Amino Acids/Dextrose 1,160.4545 ml @ 48.6 mls/hr [id number] IV 05/14/25 22:00 05/15/25 21:59 Cancel Metoclopramide HCl 5 mg Q6HR IV 05/20/25 18:00 05/28/25 13:10 5 MG Lactulose 30 ml BID NG 05/21/25 10:00 05/28/25 09:59 30 ML Ceftriaxone Sodium 50 ml @ 100 mls/hr DAILY@09 IV 05/21/25 09:00 05/28/25 09:59 100 MLS/HR Fentanyl Citrate 250 ml @ 2.5 mls/hr Q24H IV 05/22/25 23:15 05/28/25 11:11 2.5 MLS/HR Norepinephrine Bitartrate 250 ml @ 3.75 mls/hr Q24H IV 05/23/25 03:30 05/24/25 02:59 15 MLS/HR Propofol 100 ml @ 1.563 mls/ hr Q24H IV 05/23/25 03:30 05/28/25 06:22 3.126 MLS/HR Artificial Tears 1 drop Q2HP PRN EACHEYE 05/24/25 13:15 Enteral Nutritional Formula 1,000 ml 30ML/HR GT 05/26/25 09:00 05/28/25 03:19 1,000 ML laboratory and microbiology Laboratory Tests 05/28/25 03:02 Test 05/28/25 03:02 Range/Units Serum Glucose 104 74-106 mg/dL Assessment/Plan Impression Acute hypoxemic respiratory failure Lung collapse Pneumonia Atelectasis SBO Patient seen and examined in ICU Events pt re-intubated on mech ventilation PEEP 5, FiO2 30% Failed weaning trial due to low tidal volume S/p sigmoidoscopy Labs and imaging reviewed ABG reviewed Management sedation per protocol ac volume control vent support adjust daily abg's and CXR Slow weaning from ventilator Continue antibiotics F/u cultures Bronchodilators Monitor renal function Monitor electrolytes Supplement as needed F/u general surgery DVT prophylaxis Prognosis questionable May require tracheostomy Family requesting more time Critical care time 35 minutes Dietary Evaluation Review Recommendations by RD: PPN/TPN Comments: 1) Increase TPN to meet at least 75% estimated daily needs 2) Advance to cardiac diet when medically feasible 3) Follow-up with gastroenterology and neurology 4) Continue to monitor I&O, labs, and skin integrity Expected Outcomes/Goals: 1) nutrition support to meet at least 75% estimated daily needs 2) labs to improve 3) diet to advance 4) gradual wt gain 5) f/u in 2-3 days Plan discussed with: Other (Rn) BRUNO GOLDMAN MD May 28, 2025 17:18
--- NOTE | 2025-05-28 17:38 | DVHPN2 ---
Progress Note Date Seen: May 28, 2025 Medical Necessity Reason Pt with a Central, PICC or Fol: Yes The following are medically ne: PICC Line, Grewal Catheter Objective vital signs Vital Sign Date Time Temp Pulse Resp B/P (MAP) Pulse Ox O2 Delivery O2 Flow Rate FiO2 05/28/25 17:15 75 17 138/60 (86) 100 05/28/25 16:00 30 05/28/25 16:00 Mechanical Ventilator+ 05/28/25 16:00 98.8 98.8 Total Intake and Output 05/27/25 05/27/25 05/28/25 15:00 23:00 07:00 Intake Total 369.386 ml 635.008 ml 784.756 ml Output Total 700 ml 1300 ml Balance 369.386 ml -64.992 ml -515.244 ml medications Current Medications Medications Dose Ordered Sig/Gregory Route Start Time Stop Time Status Last Admin Dose Admin Pantoprazole Sodium 40 mg DAILY IV 04/16/25 10:00 05/28/25 09:59 40 MG Sodium Chloride 10 ml QSHIFT@ IV 04/21/25 22:00 05/28/25 10:00 10 ML Albuterol 2.5 mg Q3HPRN PRN NEB 04/24/25 16:15 05/28/25 06:30 2.5 MG Morphine Sulfate 1 mg Q6HP PRN IV 04/30/25 10:30 05/02/25 17:58 1 MG Acetylcysteine 100 mg Q4HR NEB 05/05/25 10:00 UNV Enoxaparin Sodium 50 mg Q12HR SC 05/07/25 22:00 05/28/25 10:00 50 MG Acetaminophen 650 mg Q6HP PRN MS 05/09/25 10:30 Vancomycin HCl 250 ml @ 200 mls/hr Q12H IV 05/09/25 18:00 Cancel Dextrose/Sodium Chloride 1,000 ml @ 30 mls/hr Q24H IV 05/10/25 18:15 05/28/25 03:10 30 MLS/HR Levalbuterol HCl 0.625 mg Q8HR NEB 05/11/25 14:00 05/28/25 13:20 0.625 MG Ipratropium [place] 0.5 mg Q8HR NEB 05/11/25 14:00 05/28/25 13:20 0.5 MG Potassium Acetate 40 meq/Potassium Phosphate 35 meq/ Calcium Gluconate 6.975 meq/ Magnesium Sulfate 26 meq/ Multivitamins 10 ml/Chromium/ Copper/Manganese/ Zinc 1 ml/Amino Acids/Dextrose 1,160.4545 ml @ 48.6 mls/hr [id number] IV 05/14/25 22:00 05/15/25 21:59 Cancel Metoclopramide HCl 5 mg Q6HR IV 05/20/25 18:00 05/28/25 13:10 5 MG Lactulose 30 ml BID NG 05/21/25 10:00 05/28/25 09:59 30 ML Ceftriaxone Sodium 50 ml @ 100 mls/hr DAILY@09 IV 05/21/25 09:00 05/28/25 09:59 100 MLS/HR Fentanyl Citrate 250 ml @ 2.5 mls/hr Q24H IV 05/22/25 23:15 05/28/25 11:11 2.5 MLS/HR Norepinephrine Bitartrate 250 ml @ 3.75 mls/hr Q24H IV 05/23/25 03:30 05/24/25 02:59 15 MLS/HR Propofol 100 ml @ 1.563 mls/ hr Q24H IV 05/23/25 03:30 05/28/25 06:22 3.126 MLS/HR Artificial Tears 1 drop Q2HP PRN EACHEYE 05/24/25 13:15 Enteral Nutritional Formula 1,000 ml 30ML/HR GT 05/26/25 09:00 05/28/25 03:19 1,000 ML laboratory and microbiology Laboratory Tests 05/28/25 03:02 Test 05/28/25 03:02 Range/Units Serum Glucose 104 74-106 mg/dL Microbiology Date/Time Source Procedure Growth Status 05/22/25 22:15 Sputum Gram Stain - Final Complete 05/22/25 22:15 Sputum Respiratory Culture - Final Complete 05/16/25 13:14 Urine - Grewal Port Urine Culture - Final Complete 05/09/25 11:22 Blood Blood Culture - Final NO GROWTH AFTER 5 DAYS OF INCUBATION. Complete 05/02/25 00:00 Nose MRSA Screen - Final Complete 04/30/25 14:30 Pleural Fluid Gram Stain - Final Complete 04/30/25 14:30 Pleural Fluid Body Fluid Culture - Final Complete Problem List/Assessment/Plan Problem List/Assessment/Plan REMAINS INTUBATED AFEBRILE VSS ABD SOFT NON DISTENDED BM + MARIANN TUBE FEEDS CONTINUE SUPPORTIVE CARE FAMILY AWARE OF PT CONDITION NURSE AT BEDSIDE ONGOING PULM EVAL FR POSSIBLE CPAP AND EXTUBATION CONTINUE CLOSE OBSERVATION Plan discussed with: Other Dietary Evaluation Review Recommendations by RD: PPN/TPN Comments: 1) Increase TPN to meet at least 75% estimated daily needs 2) Advance to cardiac diet when medically feasible 3) Follow-up with gastroenterology and neurology 4) Continue to monitor I&O, labs, and skin integrity Expected Outcomes/Goals: 1) nutrition support to meet at least 75% estimated daily needs 2) labs to improve 3) diet to advance 4) gradual wt gain 5) f/u in 2-3 days GLORIA MCNEAL MD May 28, 2025 17:37
[2025-05-29] VITALS (111 sets, daily range): BP systolic 104–172; BP diastolic 41–83; PULSE 63–103; RESP 15–27; TEMP 97.8–99.2; O2SAT 90–100
[2025-05-29 03:47] LABS: Hematocrit 24.5 % (36.0-46.0); Nucleated Red Blood Cells % 0.1 %
[2025-05-29 03:50] LABS: Hemoglobin 8.3 g/dL (12.2-16.2); Mean Corpuscular Hemoglobin 34.5 pg (28.0-32.0); Mean Corpuscular Volume 102.4 fL (80.0-100.0)
[2025-05-29 03:58] LABS: Anion Gap 10 (5-15); Carbon Dioxide 28 mmol/L (20-31)
[2025-05-29 04:03] LABS: BUN/Creatinine Ratio 31.4 (10.0-20.0); Blood Urea Nitrogen 11 mg/dL (9-23); Glucose 90 mg/dL (74-106)
[2025-05-29 04:15] LABS: Sodium 146 mmol/L (136-145)
[2025-05-29 04:16] LABS: Calcium 7.8 mg/dL (8.7-10.4); Chloride 108 mmol/L (98-107); Potassium 3.5 mmol/L (3.5-5.1)
--- NOTE | 2025-05-29 05:53 | DVH ---
CHEST RADIOGRAPH Indication: Intubated Technique: XY CHEST PORTABLE COMPARISON: 05/28/2025 FINDINGS: Endotracheal tube tip projects 1.5 cm above the choco. Nasogastric tube projects towards stomach. Right PICC line tip projects over the SVC. Elevation left hemidiaphragm. The cardiac silhouette is enlarged. The lungs demonstrate bilateral patchy airspace opacities, increased in the interval. The pulmonary vasculature is prominent. Small to moderate bilateral pleural effusions, increased from prior. There is no pneumothorax. IMPRESSION: As above
--- NOTE | 2025-05-29 12:10 | DVHPN2 ---
Progress Note - Dictate Date Seen: May 29, 2025 Medical Necessity Reason Pt with a Central, PICC or Fol: Yes The following are medically ne: PICC Line, Grewal Catheter vital signs Vital Sign Date Time Temp Pulse Resp B/P (MAP) Pulse Ox O2 Delivery O2 Flow Rate FiO2 05/29/25 10:32 75 22 147/61 (89) 97 30 05/29/25 10:00 Mechanical Ventilator+ 05/29/25 04:00 99.0 99.0 Total Intake and Output 05/28/25 05/28/25 05/29/25 15:00 23:00 07:00 Intake Total 257.5 ml 305.630 ml 365.319 ml Output Total 1125 ml 350 ml Balance 257.5 ml -819.370 ml 15.319 ml medications Current Medications Medications Dose Ordered Sig/Gregory Route Start Time Stop Time Status Last Admin Dose Admin Pantoprazole Sodium 40 mg DAILY IV 04/16/25 10:00 05/28/25 09:59 40 MG Sodium Chloride 10 ml QSHIFT@10,22 IV 04/21/25 22:00 05/28/25 21:45 10 ML Albuterol 2.5 mg Q3HPRN PRN NEB 04/24/25 16:15 05/28/25 06:30 2.5 MG Morphine Sulfate 1 mg Q6HP PRN IV 04/30/25 10:30 05/02/25 17:58 1 MG Acetylcysteine 100 mg Q4HR NEB 05/05/25 10:00 UNV Enoxaparin Sodium 50 mg Q12HR SC 05/07/25 22:00 05/28/25 21:45 50 MG Acetaminophen 650 mg Q6HP PRN [place] 05/09/25 10:30 Vancomycin HCl 250 ml @ 200 mls/hr Q12H IV 05/09/25 18:00 Cancel Dextrose/Sodium Chloride 1,000 ml @ 30 mls/hr Q24H IV 05/10/25 18:15 05/29/25 05:54 30 MLS/HR Levalbuterol HCl 0.625 mg Q8HR NEB 05/11/25 14:00 05/29/25 05:45 0.625 MG Ipratropium [place] 0.5 mg Q8HR NEB 05/11/25 14:00 05/29/25 05:45 0.5 MG Potassium Acetate 40 meq/Potassium Phosphate 35 meq/ Calcium Gluconate 6.975 meq/ Magnesium Sulfate 26 meq/ Multivitamins 10 ml/Chromium/ Copper/Manganese/ Zinc 1 ml/Amino Acids/Dextrose 1,160.4545 ml @ 48.6 mls/hr [id number] IV 05/14/25 22:00 05/15/25 21:59 Cancel Metoclopramide HCl 5 mg Q6HR IV 05/20/25 18:00 05/29/25 05:49 5 MG Lactulose 30 ml BID NG 05/21/25 10:00 05/28/25 21:44 30 ML Ceftriaxone Sodium 50 ml @ 100 mls/hr DAILY@09 IV 05/21/25 09:00 05/28/25 09:59 100 MLS/HR Fentanyl Citrate 250 ml @ 2.5 mls/hr Q24H IV 05/22/25 23:15 05/28/25 11:11 2.5 MLS/HR Norepinephrine Bitartrate 250 ml @ 3.75 mls/hr Q24H IV 05/23/25 03:30 05/24/25 02:59 15 MLS/HR Propofol 100 ml @ 1.563 mls/ hr Q24H IV 05/23/25 03:30 05/28/25 06:22 3.126 MLS/HR Artificial Tears 1 drop Q2HP PRN EACHEYE 05/24/25 13:15 Enteral Nutritional Formula 1,000 ml 30ML/HR GT 05/26/25 09:00 05/28/25 03:19 1,000 ML laboratory and microbiology Laboratory Tests 05/29/25 03:00 Test 05/29/25 03:00 Range/Units Serum Glucose 90 74-106 mg/dL Assessment/Plan Impression Acute hypoxemic respiratory failure Lung collapse Pneumonia Atelectasis SBO Patient seen and examined in ICU Events pt re-intubated on mech ventilation PEEP 5, FiO2 30% Failed weaning trial due to low tidal volume S/p sigmoidoscopy Labs and imaging reviewed ABG reviewed Management sedation per protocol ac volume control vent support adjust daily abg's and CXR Slow weaning from ventilator Continue antibiotics F/u cultures Bronchodilators Monitor renal function Monitor electrolytes Supplement as needed F/u general surgery DVT prophylaxis Prognosis questionable May require tracheostomy Family requesting more time Critical care time 35 minutes Dietary Evaluation Review Recommendations by RD: PPN/TPN Comments: 1) Increase TPN to meet at least 75% estimated daily needs 2) Advance to cardiac diet when medically feasible 3) Follow-up with gastroenterology and neurology 4) Continue to monitor I&O, labs, and skin integrity Expected Outcomes/Goals: 1) nutrition support to meet at least 75% estimated daily needs 2) labs to improve 3) diet to advance 4) gradual wt gain 5) f/u in 2-3 days Plan discussed with: Patient BRUNO GOLDMAN MD May 29, 2025 12:10
[2025-05-29 13:29] LABS: Base Excess -0.4 mmol/L (-2.0-3.0)
--- NOTE | 2025-05-29 14:40 | DVHPN2 ---
Progress Note Date Seen: May 29, 2025 Resident Creating Document: MELECIO QUINTERO RESIDENT Medical Necessity Reason Pt with a Central, PICC or Fol: Yes The following are medically ne: PICC Line, Grewal Catheter Subjective Review of Systems had a bm, on tube feeds Objective vital signs Vital Sign Date Time Temp Pulse Resp B/P (MAP) Pulse Ox O2 Delivery O2 Flow Rate FiO2 05/29/25 14:30 20 95 Mechanical Ventilator+ 30 30 05/29/25 14:30 84 139/60 (86) 05/29/25 09:00 98.3 98.3 Total Intake and Output 05/28/25 05/28/25 05/29/25 15:00 23:00 07:00 Intake Total 257.5 ml 305.630 ml 395.319 ml Output Total 1125 ml 350 ml Balance 257.5 ml -819.370 ml 45.319 ml medications Current Medications Medications Dose Ordered Sig/Gregory Route Start Time Stop Time Status Last Admin Dose Admin Pantoprazole Sodium 40 mg DAILY IV 04/16/25 10:00 05/29/25 10:00 40 MG Sodium Chloride 10 ml QSHIFT@ IV 04/21/25 22:00 05/29/25 10:00 10 ML Albuterol 2.5 mg Q3HPRN PRN NEB 04/24/25 16:15 05/28/25 06:30 2.5 MG Morphine Sulfate 1 mg Q6HP PRN IV 04/30/25 10:30 05/02/25 17:58 1 MG Acetylcysteine 100 mg Q4HR NEB 05/05/25 10:00 UNV Enoxaparin Sodium 50 mg Q12HR SC 05/07/25 22:00 05/29/25 10:00 50 MG Acetaminophen 650 mg Q6HP PRN [place] 05/09/25 10:30 Vancomycin HCl 250 ml @ 200 mls/hr Q12H IV 05/09/25 18:00 Cancel Dextrose/Sodium Chloride 1,000 ml @ 30 mls/hr Q24H IV 05/10/25 18:15 05/29/25 05:54 30 MLS/HR Levalbuterol HCl 0.625 mg Q8HR NEB 05/11/25 14:00 05/29/25 12:32 0.625 MG Ipratropium [place] 0.5 mg Q8HR NEB 05/11/25 14:00 05/29/25 12:32 0.5 MG Potassium Acetate 40 meq/Potassium Phosphate 35 meq/ Calcium Gluconate 6.975 meq/ Magnesium Sulfate 26 meq/ Multivitamins 10 ml/Chromium/ Copper/Manganese/ Zinc 1 ml/Amino Acids/Dextrose 1,160.4545 ml @ 48.6 mls/hr [id number] IV 05/14/25 22:00 05/15/25 21:59 Cancel Metoclopramide HCl 5 mg Q6HR IV 05/20/25 18:00 05/29/25 12:00 5 MG Lactulose 30 ml BID NG 05/21/25 10:00 05/29/25 10:00 30 ML Ceftriaxone Sodium 50 ml @ 100 mls/hr DAILY@09 IV 05/21/25 09:00 05/29/25 09:00 100 MLS/HR Fentanyl Citrate 250 ml @ 2.5 mls/hr Q24H IV 05/22/25 23:15 05/28/25 11:11 2.5 MLS/HR Norepinephrine Bitartrate 250 ml @ 3.75 mls/hr Q24H IV 05/23/25 03:30 05/24/25 02:59 15 MLS/HR Propofol 100 ml @ 1.563 mls/ hr Q24H IV 05/23/25 03:30 05/28/25 06:22 3.126 MLS/HR Artificial Tears 1 drop Q2HP PRN EACHEYE 05/24/25 13:15 Enteral Nutritional Formula 1,000 ml 30ML/HR GT 05/26/25 09:00 05/28/25 03:19 1,000 ML Examination General Appearance: Intubated sedated HEENT: PERRLA, EOMI Lungs: Decreased breath sound on left lower lung. High-flow at 50% FiO2 Cardiovascular: Normal S1, Normal S2 Abdomen: No tenderness, No hepatospenomegaly, hypoactive bowel sounds, surgical wound dry Genitourinary: No Apparent Abnormalities (Grewal catheter) laboratory and microbiology Laboratory Tests 05/29/25 03:00 Test 05/29/25 03:00 Range/Units Serum Glucose 90 74-106 mg/dL Microbiology Date/Time Source Procedure Growth Status 05/22/25 22:15 Sputum Gram Stain - Final Complete 05/22/25 22:15 Sputum Respiratory Culture - Final Complete 05/16/25 13:14 Urine - Grewal Port Urine Culture - Final Complete 05/09/25 11:22 Blood Blood Culture - Final NO GROWTH AFTER 5 DAYS OF INCUBATION. Complete 05/02/25 00:00 Nose MRSA Screen - Final Complete 04/30/25 14:30 Pleural Fluid Gram Stain - Final Complete 04/30/25 14:30 Pleural Fluid Body Fluid Culture - Final Complete Labs and/or images reviewed: Labs reviewed by me, Image(s) reviewed by me Problem List/Assessment/Plan Problem List/Assessment/Plan (1) Ileus (2) Choledocholithiasis (3) Acute respiratory distress (4) Small bowel obstruction (5) COPD (chronic obstructive pulmonary disease) Plan Continue IV TPN for now Gently advance tube feedings as tolerated Decrease IV Reglan to q 12 hrs Discontinue Lactulose Overall her prognosis remains guarded Plan discussed with Dr Cui Plan discussed with: Patient Dietary Evaluation Review Recommendations by RD: PPN/TPN Comments: 1) Increase TPN to meet at least 75% estimated daily needs 2) Advance to cardiac diet when medically feasible 3) Follow-up with gastroenterology and neurology 4) Continue to monitor I&O, labs, and skin integrity Expected Outcomes/Goals: 1) nutrition support to meet at least 75% estimated daily needs 2) labs to improve 3) diet to advance 4) gradual wt gain 5) f/u in 2-3 days MELECIO QUINTEOR RESIDENT May 29, 2025 14:40
--- NOTE | 2025-05-29 16:39 | DVHPN2 ---
Subjective I AM SEEING THE PATIENT FROM TODAY ONWARDS. PATIENT'S REMAINS INTUBATED AND SEDATED. Reviewed: Care Plan, H&P, Labs, Medications Changes from previous H/P or p: No Changes General: Per HPI Objective Vitals Vital Signs Date Time Temp Pulse Resp B/P (MAP) Pulse Ox O2 Delivery O2 Flow Rate FiO2 05/29/25 16:00 73 19 123/62 (82) 99 30 05/29/25 15:38 Mechanical Ventilator+ 05/29/25 09:00 98.3 98.3 Intake/Output Intake and Output 05/29/25 07:00 Intake Total 958.449 ml Output Total 1475 ml Balance -516.551 ml Intake Oral 15 ml IV Total 743.449 ml Tube Feeding 200 ml Output Urine Total 1475 ml Exam HEENT PUPILS ARE REACTIVE NECK IS SUPPLE CV IS S1-S2 REGULAR RATE AND RHYTHM DIMINISHED BREATH SOUNDS BASES GI POSITIVE BOWEL SOUNDS SLUGGISH EXTREMITY NO 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 General Appearance: mild distress, Other (Intubated and sedated) HEENT: Atraumatic, PERRLA, Other Lungs: Clear to auscultation, Normal air movement, Other (Mechanical ventilation) Cardiovascular: Normal S1, Normal S2, Other (Fibrillation with controlled rate) Abdomen: No tenderness, No hepatospenomegaly, Other (Hypoactive bowel sounds.) Genitourinary: No Apparent Abnormalities (Grewal catheter) Musculoskeletal: Normal sensory function, Normal motor function Extremities: No edema, Normal pulses, No tenderness/swelling Neuro: Cranial nerves 3-12 NL, Other Skin: Dry, Intact, Wounds, Other (Surgical wound D&I) Psych/Mental Status: Mood NL Medications Current Medications Medications Dose Ordered Sig/Gregory Route Start Time Stop Time Status Last Admin Dose Admin Pantoprazole Sodium 40 mg DAILY IV 04/16/25 10:00 05/29/25 10:00 40 MG Sodium Chloride 10 ml QSHIFT@10,22 IV 04/21/25 22:00 05/29/25 10:00 10 ML Albuterol 2.5 mg Q3HPRN PRN NEB 04/24/25 16:15 05/28/25 06:30 2.5 MG Morphine Sulfate 1 mg Q6HP PRN IV 04/30/25 10:30 05/02/25 17:58 1 MG Acetylcysteine 100 mg Q4HR NEB 05/05/25 10:00 UNV Enoxaparin Sodium 50 mg Q12HR SC 05/07/25 22:00 05/29/25 10:00 50 MG Acetaminophen 650 mg Q6HP PRN [place] 05/09/25 10:30 Vancomycin HCl 250 ml @ 200 mls/hr Q12H IV 05/09/25 18:00 Cancel Dextrose/Sodium Chloride 1,000 ml @ 30 mls/hr Q24H IV 05/10/25 18:15 05/29/25 05:54 30 MLS/HR Levalbuterol HCl 0.625 mg Q8HR NEB 05/11/25 14:00 05/29/25 12:32 0.625 MG Ipratropium [place] 0.5 mg Q8HR NEB 05/11/25 14:00 05/29/25 12:32 0.5 MG Potassium Acetate 40 meq/Potassium Phosphate 35 meq/ Calcium Gluconate 6.975 meq/ Magnesium Sulfate 26 meq/ Multivitamins 10 ml/Chromium/ Copper/Manganese/ Zinc 1 ml/Amino Acids/Dextrose 1,160.4545 ml @ 48.6 mls/hr [id number] IV 05/14/25 22:00 05/15/25 21:59 Cancel Metoclopramide HCl 5 mg Q6HR IV 05/20/25 18:00 05/29/25 12:00 5 MG Lactulose 30 ml BID NG 05/21/25 10:00 05/29/25 10:00 30 ML Ceftriaxone Sodium 50 ml @ 100 mls/hr DAILY@09 IV 05/21/25 09:00 05/29/25 09:00 100 MLS/HR Fentanyl Citrate 250 ml @ 2.5 mls/hr Q24H IV 05/22/25 23:15 05/28/25 11:11 2.5 MLS/HR Norepinephrine Bitartrate 250 ml @ 3.75 mls/hr Q24H IV 05/23/25 03:30 05/24/25 02:59 15 MLS/HR Propofol 100 ml @ 1.563 mls/ hr Q24H IV 05/23/25 03:30 05/28/25 06:22 3.126 MLS/HR Artificial Tears 1 drop Q2HP PRN EACHEYE 05/24/25 13:15 Enteral Nutritional Formula 1,000 ml 30ML/HR GT 05/26/25 09:00 05/28/25 03:19 1,000 ML Laboratory Results Laboratory Tests 05/29/25 03:00 Chemistry Test 05/29/25 03:00 Calcium Level 7.8 mg/dL (8.7-10.4) L Urinalysis Test 04/15/25 15:45 05/11/25 14:35 Urine Amorphous Crystals Few /hpf (None Seen) Urine Hyaline Casts Few /lpf (0 - 2) Urine Mucus Few (None Seen) Urine Color Light-yellow (Yellow) Urine Clarity Clear (Clear) Urine pH 7.0 (5.0-9.0) Urine Specific [employer] 1.021 (1.001-1.035) Urine Protein Negative (Negative) Urine Ketones Negative (Negative) Urine Blood 1+ /uL (Negative) H Urine Nitrite Negative (Negative) Urine Bilirubin Negative (Negative) Urine Urobilinogen Normal mg/dL (Negative) Urine Leukocyte Esterase Negative /uL (Negative) Urine RBC 55 /hpf (0 - 4) Urine Microscopic WBC 1 /HPF (0-5) Urine Squamous Epithelial Cells Few /hpf (<5) Urine Bacteria None seen /hpf (None Seen) Urine Glucose Normal mg/dL (Normal) Blood Gas Results Test 05/29/25 12:29 Arterial Blood pH 7.465 (7.350-7.450) FiO2 % 30.0 Microbiology Microbiology Date/Time Source Procedure Growth Status 05/22/25 22:15 Sputum Gram Stain - Final Complete 05/22/25 22:15 Sputum Respiratory Culture - Final Complete 05/16/25 13:14 Urine - G[place]al [place] Urine Culture - Final Complete 05/09/25 11:22 Blood Blood Culture - Final NO GROWTH AFTER 5 DAYS OF INCUBATION. Complete 05/02/25 00:00 Nose MRSA Screen - Final Complete 04/30/25 14:30 Pleural Fluid Gram Stain - Final Complete 04/30/25 14:30 Pleural Fluid Body Fluid Culture - Final Complete Assessment/Plan Assessment/Plan 89-YEAR-OLD FEMALE WITH A PRESENTED TO THE HOSPITAL WITH THE ABDOMINAL PAIN FOUND TO HAVE 1. ACUTE HYPOXIC RESPIRATORY FAILURE REQUIRING INTUBATION AND SEDATION 2. SMALL-BOWEL OBSTRUCTION 3. ACUTE PANCREATITIS 4. CHOLEDOCHOLITHIASIS 5. COPD 6. ACCELERATED HYPERTENSION 7. STATUS POST COLONOSCOPY SHOWS INTERNAL HEMORRHOIDS AND SOME SIGMOID SPASM. -CONTINUE TUBE FEEDING, CONTINUE VENT SUPPORT DAILY ABG CHEST X-RAY CONTINUE IV ANTIBIOTICS, PLAN OF CARE Plan discussed with: Other Date of Service: May 29, 2025 Billing Provider: IBAN MCCRACKEN MD Common Visit Codes: [id number] INP/OBS CARE(HIGH) IBAN MCCRACKEN MD May 29, 2025 16:39
[2025-05-30] VITALS (111 sets, daily range): BP systolic 85–146; BP diastolic 33–67; PULSE 64–132; RESP 15–28; TEMP 97.7–98.6; O2SAT 83–100
[2025-05-30 07:09] LABS: Base Excess 1.0 mmol/L (-2.0-3.0)
--- NOTE | 2025-05-30 09:20 | DVHPN2 ---
Subjective Patient denies any symptoms at this time. Reviewed: Care Plan, H&P, Labs, Medications Changes from previous H/P or p: No Changes General: Per HPI Objective Vitals Vital Signs Date Time Temp Pulse Resp B/P (MAP) Pulse Ox O2 Delivery O2 Flow Rate FiO2 05/30/25 07:37 86 22 95 Mechanical Ventilator+ 30 30 05/30/25 07:30 124/56 (78) 05/30/25 04:00 97.7 97.7 Intake/Output Intake and Output 05/30/25 07:00 Intake Total 970.276 ml Output Total 675 ml Balance 295.276 ml Intake Oral 10 ml IV Total 816.276 ml Tube Feeding 144 ml Output Urine Total 675 ml General Appearance: Alert, mild distress, Other (Intubated and sedated) HEENT: Atraumatic, PERRLA, Other Lungs: Clear to auscultation, Normal air movement, Other (Mechanical ventilation) Cardiovascular: Normal S1, Normal S2, Other (Fibrillation with controlled rate) Abdomen: No tenderness, No hepatospenomegaly, Other (Hypoactive bowel sounds.) Genitourinary: No Apparent Abnormalities (Grewal catheter) Musculoskeletal: Normal sensory function, Normal motor function Extremities: No edema, Normal pulses, No tenderness/swelling Neuro: Cranial nerves 3-12 NL, Other Skin: Dry, Intact, Wounds, Other (Surgical wound D&I) Psych/Mental Status: Mood NL Medications Current Medications Medications Dose Ordered Sig/Gregory Route Start Time Stop Time Status Last Admin Dose Admin Pantoprazole Sodium 40 mg DAILY IV 04/16/25 10:00 05/30/25 09:02 40 MG Sodium Chloride 10 ml QSHIFT@10,22 IV 04/21/25 22:00 05/30/25 09:02 10 ML Albuterol 2.5 mg Q3HPRN PRN NEB 04/24/25 16:15 05/28/25 06:30 2.5 MG Morphine Sulfate 1 mg Q6HP PRN IV 04/30/25 10:30 05/02/25 17:58 1 MG Acetylcysteine 100 mg Q4HR NEB 05/05/25 10:00 UNV Enoxaparin Sodium 50 mg Q12HR SC 05/07/25 22:00 05/30/25 09:02 50 MG Acetaminophen 650 mg Q6HP PRN ND 05/09/25 10:30 Vancomycin HCl 250 ml @ 200 mls/hr Q12H IV 05/09/25 18:00 Cancel Dextrose/Sodium Chloride 1,000 ml @ 30 mls/hr Q24H IV 05/10/25 18:15 05/30/25 06:23 30 MLS/HR Levalbuterol HCl 0.625 mg Q8HR NEB 05/11/25 14:00 05/30/25 05:53 0.625 MG Ipratropium [place] 0.5 mg Q8HR NEB 05/11/25 14:00 05/30/25 05:54 0.5 MG Potassium Acetate 40 meq/Potassium Phosphate 35 meq/ Calcium Gluconate 6.975 meq/ Magnesium Sulfate 26 meq/ Multivitamins 10 ml/Chromium/ Copper/Manganese/ Zinc 1 ml/Amino Acids/Dextrose 1,160.4545 ml @ 48.6 mls/hr [id number] IV 05/14/25 22:00 05/15/25 21:59 Cancel Metoclopramide HCl 5 mg Q6HR IV 05/20/25 18:00 05/30/25 06:03 5 MG Lactulose 30 ml BID NG 05/21/25 10:00 05/29/25 10:00 30 ML Ceftriaxone Sodium 50 ml @ 100 mls/hr DAILY@09 IV 05/21/25 09:00 05/30/25 09:02 100 MLS/HR Fentanyl Citrate 250 ml @ 2.5 mls/hr Q24H IV 05/22/25 23:15 05/28/25 11:11 2.5 MLS/HR Norepinephrine Bitartrate 250 ml @ 3.75 mls/hr Q24H IV 05/23/25 03:30 05/24/25 02:59 15 MLS/HR Propofol 100 ml @ 1.563 mls/ hr Q24H IV 05/23/25 03:30 05/30/25 06:03 4.689 MLS/HR Artificial Tears 1 drop Q2HP PRN EACHEYE 05/24/25 13:15 Enteral Nutritional Formula 1,000 ml 30ML/HR GT 05/26/25 09:00 05/30/25 07:32 1,000 ML Laboratory Results Laboratory Tests 05/29/25 03:00 Urinalysis Test 04/15/25 15:45 05/11/25 14:35 Urine Amorphous Crystals Few /hpf (None Seen) Urine Hyaline Casts Few /lpf (0 - 2) Urine Mucus Few (None Seen) Urine Color Light-yellow (Yellow) Urine Clarity Clear (Clear) Urine pH 7.0 (5.0-9.0) Urine Specific [place] 1.021 (1.001-1.035) Urine Protein Negative (Negative) Urine Ketones Negative (Negative) Urine Blood 1+ /uL (Negative) H Urine Nitrite Negative (Negative) Urine Bilirubin Negative (Negative) Urine Urobilinogen Normal mg/dL (Negative) Urine Leukocyte Esterase Negative /uL (Negative) Urine RBC 55 /hpf (0 - 4) Urine Microscopic WBC 1 /HPF (0-5) Urine Squamous Epithelial Cells Few /hpf (<5) Urine Bacteria None seen /hpf (None Seen) Urine Glucose Normal mg/dL (Normal) Blood Gas Results Test 05/29/25 12:29 05/30/25 07:03 Arterial Blood pH 7.465 (7.350-7.450) 7.456 (7.350-7.450) FiO2 % 30.0 30.0 Microbiology Microbiology Date/Time Source Procedure Growth Status 05/22/25 22:15 Sputum Gram Stain - Final Complete 05/22/25 22:15 Sputum Respiratory Culture - Final Complete 05/16/25 13:14 Urine - [place] Urine Culture - Final Complete 05/09/25 11:22 Blood Blood Culture - Final NO GROWTH AFTER 5 DAYS OF INCUBATION. Complete 05/02/25 00:00 Nose MRSA Screen - Final Complete 04/30/25 14:30 Pleural Fluid Gram Stain - Final Complete 04/30/25 14:30 Pleural Fluid Body Fluid Culture - Final Complete Labs and/or images reviewed: Labs reviewed by me, Image(s) reviewed by me Assessment/Plan Assessment/Plan Impression: -choledocholithiasis -acute pancreatitis -small-bowel obstruction -dementia -cachexia -sepsis -COPD -GERD -Post op delirium -Accelerated HTN -A. fib Plan: Events: No events overnight. -continue tube feeding -continue Reglan, add lactulose via NG tube -continue tube feeding -Continue current abx -PPI -full-dose anticoagulation -continue bronchodilators -CPAP trial and extubation per hospice rn -repeat labs in a.m. Critical care time spent with patient discussing and formulating plan of care: 90 minutes. This does not include time spent performing procedures. This medical document was created using an electronic medical record system with [employer] dictation system. Although this document has been carefully reviewed, there may still be some phonetic and typographical errors. These areas are purely typographical due to imperfections of the software programs, and do not reflect any compromise in the patient's medical care. Plan discussed with: Patient, Other (RN) My Orders Orders - JAYDEN HILL NP Procedure Category Date Status Time Basic Metabolic Panel LAB 05/31/25 Verified 04:00 Chest Portable XY 05/31/25 Logged 04:00 Abg W/ Co-Ox RT 05/31/25 Logged 04:00 Date of Service: May 30, 2025 Billing Provider: JAYDEN HILL NP Common Visit Codes: [id number] INP/OBS CARE(HIGH) JAYDEN HILL NP May 30, 2025 09:20
--- NOTE | 2025-05-30 10:09 | DVHPN2 ---
Progress Note Date Seen: May 30, 2025 Medical Necessity Reason Pt with a Central, PICC or Fol: Yes The following are medically ne: PICC Line, Grewal Catheter Objective vital signs Vital Sign Date Time Temp Pulse Resp B/P (MAP) Pulse Ox O2 Delivery O2 Flow Rate FiO2 05/30/25 08:28 98 24 136/46 (76) 94 30 05/30/25 07:37 Mechanical Ventilator+ 05/30/25 04:00 97.7 97.7 Total Intake and Output 05/29/25 05/29/25 05/30/25 15:00 23:00 07:00 Intake Total 258.441 ml 331.512 ml 380.323 ml Output Total 325 ml 350 ml Balance 258.441 ml 6.512 ml 30.323 ml medications Current Medications Medications Dose Ordered Sig/Gregory Route Start Time Stop Time Status Last Admin Dose Admin Pantoprazole Sodium 40 mg DAILY IV 04/16/25 10:00 05/30/25 09:02 40 MG Sodium Chloride 10 ml QSHIFT@ IV 04/21/25 22:00 05/30/25 09:02 10 ML Albuterol 2.5 mg Q3HPRN PRN NEB 04/24/25 16:15 05/28/25 06:30 2.5 MG Morphine Sulfate 1 mg Q6HP PRN IV 04/30/25 10:30 05/02/25 17:58 1 MG Acetylcysteine 100 mg Q4HR NEB 05/05/25 10:00 UNV Enoxaparin Sodium 50 mg Q12HR SC 05/07/25 22:00 05/30/25 09:02 50 MG Acetaminophen 650 mg Q6HP PRN [place] 05/09/25 10:30 Vancomycin HCl 250 ml @ 200 mls/hr Q12H IV 05/09/25 18:00 Cancel Levalbuterol HCl 0.625 mg Q8HR NEB 05/11/25 14:00 05/30/25 05:53 0.625 MG Ipratropium [place] 0.5 mg Q8HR NEB 05/11/25 14:00 05/30/25 05:54 0.5 MG Potassium Acetate 40 meq/Potassium Phosphate 35 meq/ Calcium Gluconate 6.975 meq/ Magnesium Sulfate 26 meq/ Multivitamins 10 ml/Chromium/ Copper/Manganese/ Zinc 1 ml/Amino Acids/Dextrose 1,160.4545 ml @ 48.6 mls/hr [id number] IV 05/14/25 22:00 05/15/25 21:59 Cancel Metoclopramide HCl 5 mg Q6HR IV 05/20/25 18:00 05/30/25 06:03 5 MG Lactulose 30 ml BID NG 05/21/25 10:00 05/29/25 10:00 30 ML Ceftriaxone Sodium 50 ml @ 100 mls/hr DAILY@09 IV 05/21/25 09:00 05/30/25 09:02 100 MLS/HR Fentanyl Citrate 250 ml @ 2.5 mls/hr Q24H IV 05/22/25 23:15 05/28/25 11:11 2.5 MLS/HR Norepinephrine Bitartrate 250 ml @ 3.75 mls/hr Q24H IV 05/23/25 03:30 05/24/25 02:59 15 MLS/HR Propofol 100 ml @ 1.563 mls/ hr Q24H IV 05/23/25 03:30 05/30/25 06:03 4.689 MLS/HR Artificial Tears 1 drop Q2HP PRN EACHEYE 05/24/25 13:15 Enteral Nutritional Formula 1,000 ml 30ML/HR GT 05/26/25 09:00 05/30/25 07:32 1,000 ML laboratory and microbiology Laboratory Tests 05/29/25 03:00 Test 05/29/25 03:00 Range/Units Serum Glucose 90 74-106 mg/dL Microbiology Date/Time Source Procedure Growth Status 05/22/25 22:15 Sputum Gram Stain - Final Complete 05/22/25 22:15 Sputum Respiratory Culture - Final Complete 05/16/25 13:14 Urine - [place] Urine Culture - Final Complete 05/09/25 11:22 Blood Blood Culture - Final NO GROWTH AFTER 5 DAYS OF INCUBATION. Complete 05/02/25 00:00 Nose MRSA Screen - Final Complete 04/30/25 14:30 Pleural Fluid Gram Stain - Final Complete 04/30/25 14:30 Pleural Fluid Body Fluid Culture - Final Complete Problem List/Assessment/Plan Problem List/Assessment/Plan REMAINS INTUBATED AFEBRILE VSS ABD SOFT NON DISTENDED BM + MARIANN TUBE FEEDS CONTINUE SUPPORTIVE CARE FAMILY AWARE OF PT CONDITION AND DNR STATUS ONGOING PULM EVAL FR POSSIBLE CPAP AND EXTUBATION CONTINUE CLOSE OBSERVATION Plan discussed with: Other Dietary Evaluation Review Recommendations by RD: PPN/TPN Comments: 1) Increase TPN to meet at least 75% estimated daily needs 2) Advance to cardiac diet when medically feasible 3) Follow-up with gastroenterology and neurology 4) Continue to monitor I&O, labs, and skin integrity Expected Outcomes/Goals: 1) nutrition support to meet at least 75% estimated daily needs 2) labs to improve 3) diet to advance 4) gradual wt gain 5) f/u in 2-3 days GLORIA MCNEAL MD May 30, 2025 10:09
--- NOTE | 2025-05-30 14:05 | DVHPN2 ---
Progress Note Date Seen: May 30, 2025 Resident Creating Document: MELECIO QUINTERO RESIDENT Medical Necessity Reason Pt with a Central, PICC or Fol: Yes The following are medically ne: PICC Line, Grewal Catheter Subjective Review of Systems Tube feeds on hold given CPAP trial Objective vital signs Vital Sign Date Time Temp Pulse Resp B/P (MAP) Pulse Ox O2 Delivery O2 Flow Rate FiO2 05/30/25 12:57 89 23 110/47 (68) 95 30 05/30/25 12:00 Mechanical Ventilator+ 05/30/25 12:00 98.5 98.5 Total Intake and Output 05/29/25 05/29/25 05/30/25 15:00 23:00 07:00 Intake Total 258.441 ml 331.512 ml 387.512 ml Output Total 325 ml 350 ml Balance 258.441 ml 6.512 ml 37.512 ml medications Current Medications Medications Dose Ordered Sig/Gregory Route Start Time Stop Time Status Last Admin Dose Admin Pantoprazole Sodium 40 mg DAILY IV 04/16/25 10:00 05/30/25 09:02 40 MG Sodium Chloride 10 ml QSHIFT@10,22 IV 04/21/25 22:00 05/30/25 09:02 10 ML Albuterol 2.5 mg Q3HPRN PRN NEB 04/24/25 16:15 05/28/25 06:30 2.5 MG Morphine Sulfate 1 mg Q6HP PRN IV 04/30/25 10:30 05/02/25 17:58 1 MG Acetylcysteine 100 mg Q4HR NEB 05/05/25 10:00 UNV Enoxaparin Sodium 50 mg Q12HR SC 05/07/25 22:00 05/30/25 09:02 50 MG Acetaminophen 650 mg Q6HP PRN [place] 05/09/25 10:30 Vancomycin HCl 250 ml @ 200 mls/hr Q12H IV 05/09/25 18:00 Cancel Levalbuterol HCl 0.625 mg Q8HR NEB 05/11/25 14:00 05/30/25 05:53 0.625 MG Ipratropium [place] 0.5 mg Q8HR NEB 05/11/25 14:00 05/30/25 05:54 0.5 MG Potassium Acetate 40 meq/Potassium Phosphate 35 meq/ Calcium Gluconate 6.975 meq/ Magnesium Sulfate 26 meq/ Multivitamins 10 ml/Chromium/ Copper/Manganese/ Zinc 1 ml/Amino Acids/Dextrose 1,160.4545 ml @ 48.6 mls/hr [id number] IV 05/14/25 22:00 05/15/25 21:59 Cancel Metoclopramide HCl 5 mg Q6HR IV 05/20/25 18:00 05/30/25 11:41 5 MG Lactulose 30 ml BID NG 05/21/25 10:00 05/29/25 10:00 30 ML Ceftriaxone Sodium 50 ml @ 100 mls/hr DAILY@09 IV 05/21/25 09:00 05/30/25 09:02 100 MLS/HR Fentanyl Citrate 250 ml @ 2.5 mls/hr Q24H IV 05/22/25 23:15 05/28/25 11:11 2.5 MLS/HR Norepinephrine Bitartrate 250 ml @ 3.75 mls/hr Q24H IV 05/23/25 03:30 05/24/25 02:59 15 MLS/HR Propofol 100 ml @ 1.563 mls/ hr Q24H IV 05/23/25 03:30 05/30/25 06:03 4.689 MLS/HR Artificial Tears 1 drop Q2HP PRN EACHEYE 05/24/25 13:15 Enteral Nutritional Formula 1,000 ml 30ML/HR GT 05/26/25 09:00 05/30/25 07:32 1,000 ML Examination General Appearance: Intubated sedated HEENT: PERRLA, EOMI Lungs: Decreased breath sound on left lower lung. High-flow at 50% FiO2 Cardiovascular: Normal S1, Normal S2 Abdomen: No tenderness, No hepatospenomegaly, hypoactive bowel sounds, surgical wound dry Genitourinary: No Apparent Abnormalities (Grewal catheter) laboratory and microbiology Laboratory Tests 05/29/25 03:00 Test 05/29/25 03:00 Range/Units Serum Glucose 90 74-106 mg/dL Microbiology Date/Time Source Procedure Growth Status 05/22/25 22:15 Sputum Gram Stain - Final Complete 05/22/25 22:15 Sputum Respiratory Culture - Final Complete 05/16/25 13:14 Urine - [place] Urine Culture - Final Complete 05/09/25 11:22 Blood Blood Culture - Final NO GROWTH AFTER 5 DAYS OF INCUBATION. Complete 05/02/25 00:00 Nose MRSA Screen - Final Complete 04/30/25 14:30 Pleural Fluid Gram Stain - Final Complete 04/30/25 14:30 Pleural Fluid Body Fluid Culture - Final Complete Labs and/or images reviewed: Labs reviewed by me Problem List/Assessment/Plan Problem List/Assessment/Plan (1) Ileus (2) Choledocholithiasis (3) Acute respiratory distress (4) Small bowel obstruction (5) COPD (chronic obstructive pulmonary disease) Plan H&H stable. Gently advance tube feedings as tolerated Continue metoclopramide 5 mg q.6 hours Continue Protonix 40 mg IV daily Discontinue Lactulose Overall her prognosis remains guarded Plan discussed with Dr Cui Plan discussed with: Other (igniter capperKIA Cadena) Dietary Evaluation Review Recommendations by RD: PPN/TPN Comments: 1) Increase TPN to meet at least 75% estimated daily needs 2) Advance to cardiac diet when medically feasible 3) Follow-up with gastroenterology and neurology 4) Continue to monitor I&O, labs, and skin integrity Expected Outcomes/Goals: 1) nutrition support to meet at least 75% estimated daily needs 2) labs to improve 3) diet to advance 4) gradual wt gain 5) f/u in 2-3 days MELECIO QUITNERO RESIDENT May 30, 2025 14:05
--- NOTE | 2025-05-30 14:56 | DVHPN2 ---
Progress Note - Dictate Date Seen: May 30, 2025 Medical Necessity Reason Pt with a Central, PICC or Fol: Yes The following are medically ne: PICC Line, Grewal Catheter vital signs Vital Sign Date Time Temp Pulse Resp B/P (MAP) Pulse Ox O2 Delivery O2 Flow Rate FiO2 05/30/25 14:30 101 20 113/46 (68) 92 05/30/25 14:23 30 05/30/25 14:00 Mechanical Ventilator+ 05/30/25 12:00 98.5 98.5 Total Intake and Output 05/29/25 05/29/25 05/30/25 15:00 23:00 07:00 Intake Total 258.441 ml 331.512 ml 387.512 ml Output Total 325 ml 350 ml Balance 258.441 ml 6.512 ml 37.512 ml medications Current Medications Medications Dose Ordered Sig/Gregory Route Start Time Stop Time Status Last Admin Dose Admin Pantoprazole Sodium 40 mg DAILY IV 04/16/25 10:00 05/30/25 09:02 40 MG Sodium Chloride 10 ml QSHIFT@ IV 04/21/25 22:00 05/30/25 09:02 10 ML Albuterol 2.5 mg Q3HPRN PRN NEB 04/24/25 16:15 05/28/25 06:30 2.5 MG Morphine Sulfate 1 mg Q6HP PRN IV 04/30/25 10:30 05/02/25 17:58 1 MG Acetylcysteine 100 mg Q4HR NEB 05/05/25 10:00 UNV Enoxaparin Sodium 50 mg Q12HR SC 05/07/25 22:00 05/30/25 09:02 50 MG Acetaminophen [address] 05/09/25 10:30 Vancomycin HCl 250 ml @ 200 mls/hr Q12H IV 05/09/25 18:00 Cancel Levalbuterol HCl 0.625 mg Q8HR NEB 05/11/25 14:00 05/30/25 05:53 0.625 MG Ipratropium [place] 0.5 mg Q8HR NEB 05/11/25 14:00 05/30/25 05:54 0.5 MG Potassium Acetate 40 meq/Potassium Phosphate 35 meq/ Calcium Gluconate 6.975 meq/ Magnesium Sulfate 26 meq/ Multivitamins 10 ml/Chromium/ Copper/Manganese/ Zinc 1 ml/Amino Acids/Dextrose 1,160.4545 ml @ 48.6 mls/hr [id number] IV 05/14/25 22:00 05/15/25 21:59 Cancel Metoclopramide HCl 5 mg Q6HR IV 05/20/25 18:00 05/30/25 11:41 5 MG Ceftriaxone Sodium 50 ml @ 100 mls/hr DAILY@09 IV 05/21/25 09:00 05/30/25 09:02 100 MLS/HR Fentanyl Citrate 250 ml @ 2.5 mls/hr Q24H IV 05/22/25 23:15 05/28/25 11:11 2.5 MLS/HR Norepinephrine Bitartrate 250 ml @ 3.75 mls/hr Q24H IV 05/23/25 03:30 05/24/25 02:59 15 MLS/HR Propofol 100 ml @ 1.563 mls/ hr Q24H IV 05/23/25 03:30 05/30/25 06:03 4.689 MLS/HR Artificial Tears 1 drop Q2HP PRN EACHEYE 05/24/25 13:15 Enteral Nutritional Formula 1,000 ml 30ML/HR GT 05/26/25 09:00 05/30/25 07:32 1,000 ML laboratory and microbiology Laboratory Tests 05/29/25 03:00 Test 05/29/25 03:00 Range/Units Serum Glucose 90 74-106 mg/dL Assessment/Plan Impression Acute hypoxemic respiratory failure Lung collapse Pneumonia Atelectasis SBO Patient seen and examined in ICU Events pt re-intubated on mech ventilation PEEP 5, FiO2 30% Fails weaning trial S/p sigmoidoscopy Labs and imaging reviewed ABG reviewed Management sedation per protocol ac volume control vent support adjust daily abg's and CXR Slow weaning from ventilator Continue antibiotics F/u cultures Bronchodilators Monitor renal function Monitor electrolytes Supplement as needed F/u general surgery DVT prophylaxis Prognosis questionable May require tracheostomy Family requesting more time Critical care time 35 minutes Dietary Evaluation Review Recommendations by RD: PPN/TPN Comments: 1) Increase TPN to meet at least 75% estimated daily needs 2) Advance to cardiac diet when medically feasible 3) Follow-up with gastroenterology and neurology 4) Continue to monitor I&O, labs, and skin integrity Expected Outcomes/Goals: 1) nutrition support to meet at least 75% estimated daily needs 2) labs to improve 3) diet to advance 4) gradual wt gain 5) f/u in 2-3 days Plan discussed with: Other BRUNO GOLDMAN MD May 30, 2025 14:56
[2025-05-31] VITALS (109 sets, daily range): BP systolic 103–159; BP diastolic 45–68; PULSE 65–127; RESP 15–27; TEMP 97.3–98.5; O2SAT 30–100
[2025-05-31 04:27] LABS: Anion Gap 9 (5-15); Carbon Dioxide 29 mmol/L (20-31)
[2025-05-31 04:28] LABS: Calcium 7.6 mg/dL (8.7-10.4); Chloride 108 mmol/L (98-107); Potassium 3.2 mmol/L (3.5-5.1); Sodium 146 mmol/L (136-145)
[2025-05-31 04:32] LABS: Glucose 86 mg/dL (74-106)
[2025-05-31 04:33] LABS: BUN/Creatinine Ratio 32.4 (10.0-20.0); Blood Urea Nitrogen 11 mg/dL (9-23)
--- NOTE | 2025-05-31 06:23 | DVH ---
CHEST RADIOGRAPH Indication: pna Technique: Single frontal view of the chest was obtained COMPARISON: XY CHEST PORTABLE on DOS: 05/29/25, XY CHEST PORTABLE on DOS: 05/28/25, XY CHEST PORTABLE on DOS: 05/27/25, XY CHEST PORTABLE on DOS: 05/26/25, XY CHEST PORTABLE on DOS: 05/24/25 FINDINGS: Lines and Tubes: Slight interval retraction of the endotracheal tube such that the tip now projects approximately 3.8 cm above the level of the choco. Remaining Lines and tubes unchanged. Lungs: Stable appearing small bilateral pleural effusions and bibasilar pulmonary airspace disease. No pneumothorax. Cardiomediastinal contours: Unremarkable Bones: Unremarkable IMPRESSION: 1. Slight interval retraction of the endotracheal tube such that the tip now projects approximately 3.8 cm above the level of the choco. Remaining Lines and tubes unchanged. 2. Stable appearing bilateral pleural effusions and bibasilar pulmonary airspace disease.
[2025-05-31] MEDS: CALCIUM GLUC 1,000mg/50ml-NS 50 ML IV ONE (06:34)
[2025-05-31] MEDS: POTASSIUM CHL 20MEQ/100ML 100 ML IV SCH (06:36)
[2025-05-31 07:06] LABS: Base Excess 2.6 mmol/L (-2.0-3.0)
--- NOTE | 2025-05-31 11:52 | DVHPN2 ---
Progress Note - Dictate Date Seen: May 31, 2025 Medical Necessity Reason Pt with a Central, PICC or Fol: Yes The following are medically ne: PICC Line, Grewal Catheter vital signs Vital Sign Date Time Temp Pulse Resp B/P (MAP) Pulse Ox O2 Delivery O2 Flow Rate FiO2 05/31/25 10:00 16 100 Mechanical Ventilator+ 30 30 05/31/25 10:00 73 05/31/25 10:00 129/54 (79) 05/31/25 08:00 97.3 97.3 Total Intake and Output 05/30/25 05/30/25 05/31/25 15:00 23:00 07:00 Intake Total 182.512 ml 128.512 ml 337.512 ml Output Total 350 ml 275 ml Balance 182.512 ml -221.488 ml 62.512 ml medications Current Medications Medications Dose Ordered Sig/Gregory Route Start Time Stop Time Status Last Admin Dose Admin Pantoprazole Sodium 40 mg DAILY IV 04/16/25 10:00 05/31/25 09:27 40 MG Sodium Chloride 10 ml QSHIFT@10,22 IV 04/21/25 22:00 05/31/25 09:28 10 ML Albuterol 2.5 mg Q3HPRN PRN NEB 04/24/25 16:15 05/28/25 06:30 2.5 MG Morphine Sulfate 1 mg Q6HP PRN IV 04/30/25 10:30 05/02/25 17:58 1 MG Acetylcysteine 100 mg Q4HR NEB 05/05/25 10:00 UNV Enoxaparin Sodium 50 mg Q12HR SC 05/07/25 22:00 05/31/25 09:28 50 MG Acetaminophen 650 mg Q6HP PRN SC 05/09/25 10:30 Vancomycin HCl 250 ml @ 200 mls/hr Q12H IV 05/09/25 18:00 Cancel Levalbuterol HCl 0.625 mg Q8HR NEB 05/11/25 14:00 05/31/25 05:51 0.625 MG Ipratropium [place] 0.5 mg Q8HR NEB 05/11/25 14:00 05/31/25 05:51 0.5 MG Potassium Acetate 40 meq/Potassium Phosphate 35 meq/ Calcium Gluconate 6.975 meq/ Magnesium Sulfate 26 meq/ Multivitamins 10 ml/Chromium/ Copper/Manganese/ Zinc 1 ml/Amino Acids/Dextrose 1,160.4545 ml @ 48.6 mls/hr [id number] IV 05/14/25 22:00 05/15/25 21:59 Cancel Metoclopramide HCl 5 mg Q6HR IV 05/20/25 18:00 05/31/25 06:34 5 MG Ceftriaxone Sodium 50 ml @ 100 mls/hr DAILY@09 IV 05/21/25 09:00 05/31/25 09:27 100 MLS/HR Fentanyl Citrate 250 ml @ 2.5 mls/hr Q24H IV 05/22/25 23:15 05/28/25 11:11 2.5 MLS/HR Norepinephrine Bitartrate 250 ml @ 3.75 mls/hr Q24H IV 05/23/25 03:30 05/24/25 02:59 15 MLS/HR Propofol 100 ml @ 1.563 mls/ hr Q24H IV 05/23/25 03:30 05/31/25 00:18 4.689 MLS/HR Artificial Tears 1 drop Q2HP PRN EACHEYE 05/24/25 13:15 Enteral Nutritional Formula 1,000 ml 30ML/HR GT 05/26/25 09:00 05/30/25 07:32 1,000 ML laboratory and microbiology Laboratory Tests 05/31/25 03:36 05/29/25 03:00 Test 05/31/25 03:36 Range/Units Serum Glucose 86 74-106 mg/dL Assessment/Plan Impression Acute hypoxemic respiratory failure Lung collapse Pneumonia Atelectasis SBO Patient seen and examined in ICU Events on [facility] ventilation PEEP 5, FiO2 30% Fails weaning trial Labs and imaging reviewed ABG reviewed Management sedation per protocol ac volume control vent support adjust daily abg's and CXR Continue antibiotics F/u cultures Bronchodilators Monitor renal function Monitor electrolytes Supplement as needed F/u general surgery DVT prophylaxis Prognosis questionable May require tracheostomy Family requesting more time Critical care time 35 minutes Dietary Evaluation Review Recommendations by RD: PPN/TPN Comments: 1) Increase TPN to meet at least 75% estimated daily needs 2) Advance to cardiac diet when medically feasible 3) Follow-up with gastroenterology and neurology 4) Continue to monitor I&O, labs, and skin integrity Expected Outcomes/Goals: 1) nutrition support to meet at least 75% estimated daily needs 2) labs to improve 3) diet to advance 4) gradual wt gain 5) f/u in 2-3 days Plan discussed with: Patient, Other (rn) BRUNO GOLDMAN MD May 31, 2025 11:52
--- NOTE | 2025-05-31 17:14 | DVHPN2 ---
Progress Note Date Seen: May 31, 2025 Medical Necessity Reason Pt with a Central, PICC or Fol: Yes The following are medically ne: PICC Line, Grewal Catheter Objective vital signs Vital Sign Date Time Temp Pulse Resp B/P (MAP) Pulse Ox O2 Delivery O2 Flow Rate FiO2 05/31/25 16:00 16 30 Mechanical Ventilator+ 30 30 05/31/25 16:00 78 05/31/25 16:00 97.6 131/60 (83) 97.6 Total Intake and Output 05/30/25 05/30/25 05/31/25 15:00 23:00 07:00 Intake Total 182.512 ml 128.512 ml 337.512 ml Output Total 350 ml 275 ml Balance 182.512 ml -221.488 ml 62.512 ml medications Current Medications Medications Dose Ordered Sig/Gregory Route Start Time Stop Time Status Last Admin Dose Admin Pantoprazole Sodium 40 mg DAILY IV 04/16/25 10:00 05/31/25 09:27 40 MG Sodium Chloride 10 ml QSHIFT@10,22 IV 04/21/25 22:00 05/31/25 09:28 10 ML Albuterol 2.5 mg Q3HPRN PRN NEB 04/24/25 16:15 05/28/25 06:30 2.5 MG Morphine Sulfate 1 mg Q6HP PRN IV 04/30/25 10:30 05/02/25 17:58 1 MG Acetylcysteine 100 mg Q4HR NEB 05/05/25 10:00 UNV Enoxaparin Sodium 50 mg Q12HR SC 05/07/25 22:00 05/31/25 09:28 50 MG Acetaminophen 650 mg Q6HP PRN [place] 05/09/25 10:30 Vancomycin HCl 250 ml @ 200 mls/hr Q12H IV 05/09/25 18:00 Cancel Levalbuterol HCl 0.625 mg Q8HR NEB 05/11/25 14:00 05/31/25 13:05 0.625 MG Ipratropium [place] 0.5 mg Q8HR NEB 05/11/25 14:00 05/31/25 13:05 0.5 MG Potassium Acetate 40 meq/Potassium Phosphate 35 meq/ Calcium Gluconate 6.975 meq/ Magnesium Sulfate 26 meq/ Multivitamins 10 ml/Chromium/ Copper/Manganese/ Zinc 1 ml/Amino Acids/Dextrose 1,160.4545 ml @ 48.6 mls/hr [id number] IV 05/14/25 22:00 05/15/25 21:59 Cancel Metoclopramide HCl 5 mg Q6HR IV 05/20/25 18:00 05/31/25 13:07 5 MG Ceftriaxone Sodium 50 ml @ 100 mls/hr DAILY@09 IV 05/21/25 09:00 05/31/25 09:27 100 MLS/HR Fentanyl Citrate 250 ml @ 2.5 mls/hr Q24H IV 05/22/25 23:15 05/31/25 15:00 2.5 MLS/HR Norepinephrine Bitartrate 250 ml @ 3.75 mls/hr Q24H IV 05/23/25 03:30 05/24/25 02:59 15 MLS/HR Propofol 100 ml @ 1.563 mls/ hr Q24H IV 05/23/25 03:30 05/31/25 15:01 1.563 MLS/HR Artificial Tears 1 drop Q2HP PRN EACHEYE 05/24/25 13:15 Enteral Nutritional Formula 1,000 ml 30ML/HR GT 05/26/25 09:00 05/31/25 15:29 1,000 ML laboratory and microbiology Laboratory Tests 05/31/25 03:36 05/29/25 03:00 Test 05/31/25 03:36 Range/Units Serum Glucose 86 74-106 mg/dL Microbiology Date/Time Source Procedure Growth Status 05/22/25 22:15 Sputum Gram Stain - Final Complete 05/22/25 22:15 Sputum Respiratory Culture - Final Complete 05/16/25 13:14 Urine - Grewal [place] Urine Culture - Final Complete 05/09/25 11:22 Blood Blood Culture - Final NO GROWTH AFTER 5 DAYS OF INCUBATION. Complete 05/02/25 00:00 Nose MRSA Screen - Final Complete 04/30/25 14:30 Pleural Fluid Gram Stain - Final Complete 04/30/25 14:30 Pleural Fluid Body Fluid Culture - Final Complete Problem List/Assessment/Plan Problem List/Assessment/Plan REMAINS INTUBATED AFEBRILE VSS ABD SOFT NON DISTENDED BM + MARIANN TUBE FEEDS CONTINUE SUPPORTIVE CARE FAMILY AWARE OF PT CONDITION CPAP ATTEMPTED ONGOING PULM EVAL FOR POSSIBLE CPAP AND EXTUBATION CONTINUE CLOSE OBSERVATION Plan discussed with: Other Dietary Evaluation Review Recommendations by RD: PPN/TPN Comments: 1) Increase TPN to meet at least 75% estimated daily needs 2) Advance to cardiac diet when medically feasible 3) Follow-up with gastroenterology and neurology 4) Continue to monitor I&O, labs, and skin integrity Expected Outcomes/Goals: 1) nutrition support to meet at least 75% estimated daily needs 2) labs to improve 3) diet to advance 4) gradual wt gain 5) f/u in 2-3 days GLORIA MCNEAL MD May 31, 2025 17:14
[2025-06-01] VITALS (103 sets, daily range): BP systolic 81–154; BP diastolic 35–64; PULSE 61–108; RESP 13–24; TEMP 97.5–99.5; O2SAT 95–100
[2025-06-01 04:35] LABS: Hematocrit 25.7 % (36.0-46.0); Hemoglobin 8.5 g/dL (12.2-16.2); Mean Corpuscular Hemoglobin 33.4 pg (28.0-32.0); Mean Corpuscular Volume 101.3 fL (80.0-100.0); Nucleated Red Blood Cells % 0.1 %
[2025-06-01 04:44] LABS: Anion Gap 10 (5-15); Carbon Dioxide 27 mmol/L (20-31); Potassium 4.0 mmol/L (3.5-5.1)
[2025-06-01 04:50] LABS: BUN/Creatinine Ratio 40.0 (10.0-20.0); Blood Urea Nitrogen 14 mg/dL (9-23)
[2025-06-01 04:51] LABS: Magnesium 1.8 mg/dL (1.6-2.6)
[2025-06-01 04:59] LABS: Calcium 7.8 mg/dL (8.7-10.4); Chloride 109 mmol/L (98-107); Glucose 70 mg/dL (74-106); Sodium 146 mmol/L (136-145)
[2025-06-01] MEDS: CALCIUM GLUC 1,000mg/50ml-NS 50 ML IV ONE (05:53)
[2025-06-01 07:56] LABS: Base Excess -2.0 mmol/L (-2.0-3.0)
--- NOTE | 2025-06-01 08:08 | DVH ---
CHEST RADIOGRAPH Indication: INTUBATED Technique: Single frontal view of the chest was obtained COMPARISON: XY CHEST PORTABLE on DOS: 05/31/25, XY CHEST PORTABLE on DOS: 05/29/25, XY CHEST PORTABLE on DOS: 05/28/25, XY CHEST PORTABLE on DOS: 05/27/25, XY CHEST PORTABLE on DOS: 05/26/25 FINDINGS: Lines and Tubes: Endotracheal tube, enteric catheter and right PICC in satisfactory position. Lungs: Unchanged pulmonary edema. Pleura: Small left pleural effusion. No pneumothorax. Cardiomediastinal contours: Unremarkable Bones: Unremarkable IMPRESSION: Lines and tubes in satisfactory position. No significant interval change.
--- NOTE | 2025-06-01 15:07 | DVHPN2 ---
Progress Note - Dictate Date Seen: Jun 01, 2025 Medical Necessity Reason Pt with a Central, PICC or Fol: Yes The following are medically ne: PICC Line, [place]l Catheter vital signs Vital Sign Date Time Temp Pulse Resp B/P (MAP) Pulse Ox O2 Delivery O2 Flow Rate FiO2 06/01/25 14:43 76 20 141/56 (84) 98 30 06/01/25 14:00 Mechanical Ventilator+ 06/01/25 07:30 98.7 98.7 Total Intake and Output 05/31/25 05/31/25 06/01/25 15:00 23:00 07:00 Intake Total 57.189 ml 107.512 ml 205.012 ml Output Total 250 ml 300 ml Balance 57.189 ml -142.488 ml -94.988 ml medications Current Medications Medications Dose Ordered Sig/Gregory Route Start Time Stop Time Status Last Admin Dose Admin Pantoprazole Sodium 40 mg DAILY IV 04/16/25 10:00 06/01/25 09:46 40 MG Sodium Chloride 10 ml QSHIFT@10,22 IV 04/21/25 22:00 06/01/25 09:47 10 ML Albuterol 2.5 mg Q3HPRN PRN NEB 04/24/25 16:15 05/31/25 21:58 2.5 MG Morphine Sulfate 1 mg Q6HP PRN IV 04/30/25 10:30 05/02/25 17:58 1 MG Acetylcysteine 100 mg Q4HR NEB 05/05/25 10:00 UNV Enoxaparin Sodium 50 mg Q12HR SC 05/07/25 22:00 06/01/25 09:47 50 MG Acetaminophen 650 mg Q6HP PRN [place] 05/09/25 10:30 Vancomycin HCl 250 ml @ 200 mls/hr Q12H IV 05/09/25 18:00 Cancel Levalbuterol HCl 0.625 mg Q8HR NEB 05/11/25 14:00 06/01/25 14:51 0.625 MG Ipratropium [place] 0.5 mg Q8HR NEB 05/11/25 14:00 06/01/25 14:51 0.5 MG Potassium Acetate 40 meq/Potassium Phosphate 35 meq/ Calcium Gluconate 6.975 meq/ Magnesium Sulfate 26 meq/ Multivitamins 10 ml/Chromium/ Copper/Manganese/ Zinc 1 ml/Amino Acids/Dextrose 1,160.4545 ml @ 48.6 mls/hr [id number] IV 05/14/25 22:00 05/15/25 21:59 Cancel Metoclopramide HCl 5 mg Q6HR IV 05/20/25 18:00 06/01/25 11:41 5 MG Ceftriaxone Sodium 50 ml @ 100 mls/hr DAILY@09 IV 05/21/25 09:00 06/01/25 09:46 100 MLS/HR Fentanyl Citrate 250 ml @ 2.5 mls/hr Q24H IV 05/22/25 23:15 05/31/25 15:00 2.5 MLS/HR Norepinephrine Bitartrate 250 ml @ 3.75 mls/hr Q24H IV 05/23/25 03:30 05/24/25 02:59 15 MLS/HR Propofol 100 ml @ 1.563 mls/ hr Q24H IV 05/23/25 03:30 06/01/25 05:53 4.689 MLS/HR Artificial Tears 1 drop Q2HP PRN EACHEYE 05/24/25 13:15 Enteral Nutritional Formula 1,000 ml 30ML/HR GT 05/26/25 09:00 05/31/25 15:29 1,000 ML laboratory and microbiology Laboratory Tests 06/01/25 04:00 Test 06/01/25 04:00 Range/Units Serum Glucose 70 L 74-106 mg/dL Assessment/Plan Impression Acute hypoxemic respiratory failure Lung collapse Pneumonia Atelectasis SBO Patient seen and examined in ICU Events on [facility] ventilation s/p intubation PEEP 5, FiO2 30% Fails weaning trial Labs and imaging reviewed ABG reviewed Management sedation per protocol ac volume control vent support adjust daily abg's and CXR Continue antibiotics F/u cultures Bronchodilators Monitor renal function Monitor electrolytes Supplement as needed F/u general surgery DVT prophylaxis Prognosis questionable May require tracheostomy Family requesting more time Critical care time 35 minutes Dietary Evaluation Review Recommendations by RD: PPN/TPN Comments: 1) Increase TPN to meet at least 75% estimated daily needs 2) Advance to cardiac diet when medically feasible 3) Follow-up with gastroenterology and neurology 4) Continue to monitor I&O, labs, and skin integrity Expected Outcomes/Goals: 1) nutrition support to meet at least 75% estimated daily needs 2) labs to improve 3) diet to advance 4) gradual wt gain 5) f/u in 2-3 days Plan discussed with: Other (Rn) BRUNO GOLDMAN MD Jun 01, 2025 15:07
--- NOTE | 2025-06-01 20:57 | DVHPN2 ---
Progress Note - Dictate Date Seen: Jun 01, 2025 Medical Necessity Reason Pt with a Central, PICC or Fol: Yes The following are medically ne: PICC Line, Grewal Catheter Subjective Patient is intubated sedated due to hypoxic respiratory failure Enteral tube feedings were started at 10 mL/hour advanced to 20 mL/hour NG-tube feedings were on hold for CPAP trial Gastric residuals were about to 40 mL Patient is getting IV TPN Last bowel movement recorded May 28 vital signs Vital Sign Date Time Temp Pulse Resp B/P (MAP) Pulse Ox O2 Delivery O2 Flow Rate FiO2 06/01/25 19:45 68 17 145/54 (84) 98 30 06/01/25 18:00 Mechanical Ventilator+ 06/01/25 07:30 98.7 98.7 Total Intake and Output 05/31/25 05/31/25 06/01/25 15:00 23:00 07:00 Intake Total 57.189 ml 107.512 ml 205.012 ml Output Total 250 ml 300 ml Balance 57.189 ml -142.488 ml -94.988 ml medications Current Medications Medications Dose Ordered Sig/Gregory Route Start Time Stop Time Status Last Admin Dose Admin Pantoprazole Sodium 40 mg DAILY IV 04/16/25 10:00 06/01/25 09:46 40 MG Sodium Chloride 10 ml QSHIFT@10,22 IV 04/21/25 22:00 06/01/25 09:47 10 ML Albuterol 2.5 mg Q3HPRN PRN NEB 04/24/25 16:15 05/31/25 21:58 2.5 MG Morphine Sulfate 1 mg Q6HP PRN IV 04/30/25 10:30 05/02/25 17:58 1 MG Acetylcysteine 100 mg Q4HR NEB 05/05/25 10:00 UNV Enoxaparin Sodium 50 mg Q12HR SC 05/07/25 22:00 06/01/25 09:47 50 MG Acetaminophen 650 mg Q6HP PRN [place] 05/09/25 10:30 Vancomycin HCl 250 ml @ 200 mls/hr Q12H IV 05/09/25 18:00 Cancel Levalbuterol HCl 0.625 mg Q8HR NEB 05/11/25 14:00 06/01/25 14:51 0.625 MG Ipratropium [place] 0.5 mg Q8HR NEB 05/11/25 14:00 06/01/25 14:51 0.5 MG Potassium Acetate 40 meq/Potassium Phosphate 35 meq/ Calcium Gluconate 6.975 meq/ Magnesium Sulfate 26 meq/ Multivitamins 10 ml/Chromium/ Copper/Manganese/ Zinc 1 ml/Amino Acids/Dextrose 1,160.4545 ml @ 48.6 mls/hr [id number] IV 05/14/25 22:00 05/15/25 21:59 Cancel Metoclopramide HCl 5 mg Q6HR IV 05/20/25 18:00 06/01/25 18:00 5 MG Ceftriaxone Sodium 50 ml @ 100 mls/hr DAILY@09 IV 05/21/25 09:00 06/01/25 09:46 100 MLS/HR Fentanyl Citrate 250 ml @ 2.5 mls/hr Q24H IV 05/22/25 23:15 05/31/25 15:00 2.5 MLS/HR Norepinephrine Bitartrate 250 ml @ 3.75 mls/hr Q24H IV 05/23/25 03:30 05/24/25 02:59 15 MLS/HR Propofol 100 ml @ 1.563 mls/ hr Q24H IV 05/23/25 03:30 06/01/25 19:35 4.689 MLS/HR Artificial Tears 1 drop Q2HP PRN EACHEYE 05/24/25 13:15 Enteral Nutritional Formula 1,000 ml 30ML/HR GT 05/26/25 09:00 05/31/25 15:29 1,000 ML objective General Appearance: Intubated sedated HEENT: PERRLA, EOMI Lungs: Decreased breath sound on left lower lung. High-flow at 50% FiO2 Cardiovascular: Normal S1, Normal S2 Abdomen: No tenderness, No hepatospenomegaly, hypoactive bowel sounds, surgical wound dry Genitourinary: No Apparent Abnormalities (Grewal catheter) Musculoskeletal: Normal sensory function, Normal motor function Extremities: No edema, Normal pulses, No tenderness/swelling laboratory and microbiology Laboratory Tests 06/01/25 04:00 Test 06/01/25 04:00 Range/Units Serum Glucose 70 L 74-106 mg/dL Problems(with codes): (1) Diabetes (2) Ileus (3) Choledocholithiasis (4) Urinary tract infection (5) Small bowel obstruction Prognosis PLAN Ongoing attempts at CPAP trial which the patient has failed Continue IV antibiotics Continue ventilatory support IV PPI Patient was on IV micafungin Continue supportive care Dietary Evaluation Review Recommendations by RD: PPN/TPN Comments: 1) Increase TPN to meet at least 75% estimated daily needs 2) Advance to cardiac diet when medically feasible 3) Follow-up with gastroenterology and neurology 4) Continue to monitor I&O, labs, and skin integrity Expected Outcomes/Goals: 1) nutrition support to meet at least 75% estimated daily needs 2) labs to improve 3) diet to advance 4) gradual wt gain 5) f/u in 2-3 days Plan discussed with: Other (Dr Caban) JIL MCNEAL MD Jun 01, 2025 20:57
[2025-06-02] VITALS (103 sets, daily range): BP systolic 103–151; BP diastolic 37–103; PULSE 65–95; RESP 12–26; TEMP 97.4–99.4; O2SAT 87–100
--- NOTE | 2025-06-02 00:30 | DVHPN2 ---
Reviewed: Care Plan, H&P, Labs, Medications Changes from previous H/P or p: No Changes General: Per HPI Objective Vitals Vital Signs Date Time Temp Pulse Resp B/P (MAP) Pulse Ox O2 Delivery O2 Flow Rate FiO2 06/01/25 23:51 77 18 149/52 (84) 96 30 06/01/25 20:00 Mechanical Ventilator+ 06/01/25 07:30 98.7 98.7 Intake/Output Intake and Output 06/02/25 07:00 Intake Total 83.768 ml Output Total 225 ml Balance -141.232 ml IV Total 83.768 ml Output Urine Total 225 ml General Appearance: mild distress, Other (Intubated and sedated) HEENT: Atraumatic, PERRLA, Other Lungs: Clear to auscultation, Normal air movement, Other (Mechanical ventilation) Cardiovascular: Normal S1, Normal S2, Other (Fibrillation with controlled rate) Abdomen: No tenderness, No hepatospenomegaly, Other (Hypoactive bowel sounds.) Genitourinary: No Apparent Abnormalities (Grewal catheter) Musculoskeletal: Normal sensory function, Normal motor function Extremities: No edema, Normal pulses, No tenderness/swelling Neuro: Cranial nerves 3-12 NL, Other Skin: Dry, Intact, Wounds, Other (Surgical wound D&I) Psych/Mental Status: Mood NL Medications Current Medications Medications Dose Ordered Sig/Gregory Route Start Time Stop Time Status Last Admin Dose Admin Pantoprazole Sodium 40 mg DAILY IV 04/16/25 10:00 06/01/25 09:46 40 MG Sodium Chloride 10 ml QSHIFT@10,22 IV 04/21/25 22:00 06/01/25 21:31 10 ML Albuterol 2.5 mg Q3HPRN PRN NEB 04/24/25 16:15 05/31/25 21:58 2.5 MG Morphine Sulfate 1 mg Q6HP PRN IV 04/30/25 10:30 05/02/25 17:58 1 MG Acetylcysteine 100 mg Q4HR NEB 05/05/25 10:00 UNV Enoxaparin Sodium 50 mg Q12HR SC 05/07/25 22:00 06/01/25 21:31 50 MG Acetaminophen 650 mg Q6HP PRN [place] 05/09/25 10:30 Vancomycin HCl 250 ml @ 200 mls/hr Q12H IV 05/09/25 18:00 Cancel Levalbuterol HCl 0.625 mg Q8HR NEB 05/11/25 14:00 06/01/25 21:26 0.625 MG Ipratropium [place] 0.5 mg Q8HR NEB 05/11/25 14:00 06/01/25 21:26 0.5 MG Potassium Acetate 40 meq/Potassium Phosphate 35 meq/ Calcium Gluconate 6.975 meq/ Magnesium Sulfate 26 meq/ Multivitamins 10 ml/Chromium/ Copper/Manganese/ Zinc 1 ml/Amino Acids/Dextrose 1,160.4545 ml @ 48.6 mls/hr [id number] IV 05/14/25 22:00 05/15/25 21:59 Cancel Metoclopramide HCl 5 mg Q6HR IV 05/20/25 18:00 06/02/25 00:09 5 MG Ceftriaxone Sodium 50 ml @ 100 mls/hr DAILY@09 IV 05/21/25 09:00 06/01/25 09:46 100 MLS/HR Fentanyl Citrate 250 ml @ 2.5 mls/hr Q24H IV 05/22/25 23:15 05/31/25 15:00 2.5 MLS/HR Norepinephrine Bitartrate 250 ml @ 3.75 mls/hr Q24H IV 05/23/25 03:30 05/24/25 02:59 15 MLS/HR Propofol 100 ml @ 1.563 mls/ hr Q24H IV 05/23/25 03:30 06/01/25 19:35 4.689 MLS/HR Artificial Tears 1 drop Q2HP PRN EACHEYE 05/24/25 13:15 Enteral Nutritional Formula 1,000 ml 30ML/HR GT 05/26/25 09:00 05/31/25 15:29 1,000 ML Laboratory Results Laboratory Tests 06/01/25 04:00 Chemistry Test 06/01/25 04:00 Calcium Level 7.8 mg/dL (8.7-10.4) L Magnesium Level 1.8 mg/dL (1.6-2.6) Urinalysis Test 04/15/25 15:45 05/11/25 14:35 Urine Amorphous Crystals Few /hpf (None Seen) Urine Hyaline Casts Few /lpf (0 - 2) Urine Mucus Few (None Seen) Urine Color Light-yellow (Yellow) Urine Clarity Clear (Clear) Urine pH 7.0 (5.0-9.0) Urine Specific [place] 1.021 (1.001-1.035) Urine Protein Negative (Negative) Urine Ketones Negative (Negative) Urine Blood 1+ /uL (Negative) H Urine Nitrite Negative (Negative) Urine Bilirubin Negative (Negative) Urine Urobilinogen Normal mg/dL (Negative) Urine Leukocyte Esterase Negative /uL (Negative) Urine RBC 55 /hpf (0 - 4) Urine Microscopic WBC 1 /HPF (0-5) Urine Squamous Epithelial Cells Few /hpf (<5) Urine Bacteria None seen /hpf (None Seen) Urine Glucose Normal mg/dL (Normal) Blood Gas Results Test 06/01/25 07:19 Arterial Blood pH 7.417 (7.350-7.450) FiO2 % 30.0 Microbiology Microbiology Date/Time Source Procedure Growth Status 05/22/25 22:15 Sputum Gram Stain - Final Complete 05/22/25 22:15 Sputum Respiratory Culture - Final Complete 05/16/25 13:14 Urine - G[place]al [place] Urine Culture - Final Complete 05/09/25 11:22 Blood Blood Culture - Final NO GROWTH AFTER 5 DAYS OF INCUBATION. Complete 05/02/25 00:00 Nose MRSA Screen - Final Complete 04/30/25 14:30 Pleural Fluid Gram Stain - Final Complete 04/30/25 14:30 Pleural Fluid Body Fluid Culture - Final Complete Assessment/Plan Assessment/Plan Impression: -choledocholithiasis -acute pancreatitis -small-bowel obstruction -dementia -cachexia -sepsis -COPD -GERD -Post op delirium -Accelerated HTN -A. fib Plan: Events: No events overnight. -continue tube feeding -continue Reglan, add lactulose via NG tube -continue tube feeding -Continue current abx -PPI -full-dose anticoagulation -continue bronchodilators -CPAP trial and extubation per [facility] [facility] -repeat labs in a.m. Plan discussed with: Other (nursing) Date of Service: Jun 01, 2025 Billing Provider: REESE SORTO DO Common Visit Codes: [id number] CARE 30-74 MIN REESE SORTO DO Jun 02, 2025 00:30
--- NOTE | 2025-06-02 00:30 | DVHPN2 ---
Reviewed: Care Plan, H&P, Labs, Medications Changes from previous H/P or p: No Changes General: Per HPI Objective Vitals Vital Signs Date Time Temp Pulse Resp B/P (MAP) Pulse Ox O2 Delivery O2 Flow Rate FiO2 06/01/25 23:51 77 18 149/52 (84) 96 30 06/01/25 20:00 Mechanical Ventilator+ 06/01/25 07:30 98.7 98.7 Intake/Output Intake and Output 06/02/25 07:00 Intake Total 83.768 ml Output Total 225 ml Balance -141.232 ml IV Total 83.768 ml Output Urine Total 225 ml General Appearance: mild distress, Other (Intubated and sedated) HEENT: Atraumatic, PERRLA, Other Lungs: Clear to auscultation, Normal air movement, Other (Mechanical ventilation) Cardiovascular: Normal S1, Normal S2, Other (Fibrillation with controlled rate) Abdomen: No tenderness, No hepatospenomegaly, Other (Hypoactive bowel sounds.) Genitourinary: No Apparent Abnormalities (Grewal catheter) Musculoskeletal: Normal sensory function, Normal motor function Extremities: No edema, Normal pulses, No tenderness/swelling Neuro: Cranial nerves 3-12 NL, Other Skin: Dry, Intact, Wounds, Other (Surgical wound D&I) Psych/Mental Status: Mood NL Medications Current Medications Medications Dose Ordered Sig/Gregory Route Start Time Stop Time Status Last Admin Dose Admin Pantoprazole Sodium 40 mg DAILY IV 04/16/25 10:00 06/01/25 09:46 40 MG Sodium Chloride 10 ml QSHIFT@10,22 IV 04/21/25 22:00 06/01/25 21:31 10 ML Albuterol 2.5 mg Q3HPRN PRN NEB 04/24/25 16:15 05/31/25 21:58 2.5 MG Morphine Sulfate 1 mg Q6HP PRN IV 04/30/25 10:30 05/02/25 17:58 1 MG Acetylcysteine 100 mg Q4HR NEB 05/05/25 10:00 UNV Enoxaparin Sodium 50 mg Q12HR SC 05/07/25 22:00 06/01/25 21:31 50 MG Acetaminophen 650 mg Q6HP PRN [place] 05/09/25 10:30 Vancomycin HCl 250 ml @ 200 mls/hr Q12H IV 05/09/25 18:00 Cancel Levalbuterol HCl 0.625 mg Q8HR NEB 05/11/25 14:00 06/01/25 21:26 0.625 MG Ipratropium [place] 0.5 mg Q8HR NEB 05/11/25 14:00 06/01/25 21:26 0.5 MG Potassium Acetate 40 meq/Potassium Phosphate 35 meq/ Calcium Gluconate 6.975 meq/ Magnesium Sulfate 26 meq/ Multivitamins 10 ml/Chromium/ Copper/Manganese/ Zinc 1 ml/Amino Acids/Dextrose 1,160.4545 ml @ 48.6 mls/hr [id number] IV 05/14/25 22:00 05/15/25 21:59 Cancel Metoclopramide HCl 5 mg Q6HR IV 05/20/25 18:00 06/02/25 00:09 5 MG Ceftriaxone Sodium 50 ml @ 100 mls/hr DAILY@09 IV 05/21/25 09:00 06/01/25 09:46 100 MLS/HR Fentanyl Citrate 250 ml @ 2.5 mls/hr Q24H IV 05/22/25 23:15 05/31/25 15:00 2.5 MLS/HR Norepinephrine Bitartrate 250 ml @ 3.75 mls/hr Q24H IV 05/23/25 03:30 05/24/25 02:59 15 MLS/HR Propofol 100 ml @ 1.563 mls/ hr Q24H IV 05/23/25 03:30 06/01/25 19:35 4.689 MLS/HR Artificial Tears 1 drop Q2HP PRN EACHEYE 05/24/25 13:15 Enteral Nutritional Formula 1,000 ml 30ML/HR GT 05/26/25 09:00 05/31/25 15:29 1,000 ML Laboratory Results Laboratory Tests 06/01/25 04:00 Chemistry Test 06/01/25 04:00 Calcium Level 7.8 mg/dL (8.7-10.4) L Magnesium Level 1.8 mg/dL (1.6-2.6) Urinalysis Test 04/15/25 15:45 05/11/25 14:35 Urine Amorphous Crystals Few /hpf (None Seen) Urine Hyaline Casts Few /lpf (0 - 2) Urine Mucus Few (None Seen) Urine Color Light-yellow (Yellow) Urine Clarity Clear (Clear) Urine pH 7.0 (5.0-9.0) Urine Specific [place] 1.021 (1.001-1.035) Urine Protein Negative (Negative) Urine Ketones Negative (Negative) Urine Blood 1+ /uL (Negative) H Urine Nitrite Negative (Negative) Urine Bilirubin Negative (Negative) Urine Urobilinogen Normal mg/dL (Negative) Urine Leukocyte Esterase Negative /uL (Negative) Urine RBC 55 /hpf (0 - 4) Urine Microscopic WBC 1 /HPF (0-5) Urine Squamous Epithelial Cells Few /hpf (<5) Urine Bacteria None seen /hpf (None Seen) Urine Glucose Normal mg/dL (Normal) Blood Gas Results Test 06/01/25 07:19 Arterial Blood pH 7.417 (7.350-7.450) FiO2 % 30.0 Microbiology Microbiology Date/Time Source Procedure Growth Status 05/22/25 22:15 Sputum Gram Stain - Final Complete 05/22/25 22:15 Sputum Respiratory Culture - Final Complete 05/16/25 13:14 Urine - G[place]al [place] Urine Culture - Final Complete 05/09/25 11:22 Blood Blood Culture - Final NO GROWTH AFTER 5 DAYS OF INCUBATION. Complete 05/02/25 00:00 Nose MRSA Screen - Final Complete 04/30/25 14:30 Pleural Fluid Gram Stain - Final Complete 04/30/25 14:30 Pleural Fluid Body Fluid Culture - Final Complete Assessment/Plan Assessment/Plan Impression: -choledocholithiasis -acute pancreatitis -small-bowel obstruction -dementia -cachexia -sepsis -COPD -GERD -Post op delirium -Accelerated HTN -A. fib Plan: Events: No events overnight. -continue tube feeding -continue Reglan, add lactulose via NG tube -continue tube feeding -Continue current abx -PPI -full-dose anticoagulation -continue bronchodilators -CPAP trial and extubation per retail shift manager -repeat labs in a.m. Plan discussed with: Patient Date of Service: May 31, 2025 Billing Provider: REESE SORTO DO Common Visit Codes: [id number] INP/OBS CARE(HIGH) REESE SORTO DO Jun 02, 2025 00:30
--- NOTE | 2025-06-02 00:31 | DVHPN2 ---
Date of Service: May 31, 2025 Billing Provider: REESE SORTO DO Common Visit Codes: [id number] CARE 30-74 MIN REESE SOTRO DO Jun 02, 2025 00:31
[2025-06-02 04:07] LABS: Hematocrit 25.9 % (36.0-46.0); Hemoglobin 8.5 g/dL (12.2-16.2); Mean Corpuscular Hemoglobin 33.3 pg (28.0-32.0); Mean Corpuscular Volume 101.7 fL (80.0-100.0); Nucleated Red Blood Cells % 0.1 %
[2025-06-02 04:23] LABS: Alanine Aminotransferase 24 U/L (7-40); Alkaline Phosphatase 77 U/L (46-116); Anion Gap 12 (5-15); BUN/Creatinine Ratio 35.3 (10.0-20.0); Blood Urea Nitrogen 12 mg/dL (9-23); Carbon Dioxide 26 mmol/L (20-31); Magnesium 1.8 mg/dL (1.6-2.6)
[2025-06-02 04:24] LABS: Albumin 2.8 g/dL (3.2-4.8); Bilirubin, Total 0.2 mg/dL (0.2-1.0); Calcium 7.8 mg/dL (8.7-10.4); Chloride 108 mmol/L (98-107); Glucose 70 mg/dL (74-106); Potassium 3.1 mmol/L (3.5-5.1); Sodium 146 mmol/L (136-145); Total Protein 5.1 g/dL (5.7-8.2)
--- NOTE | 2025-06-02 04:26 | DVH ---
CHEST RADIOGRAPH Indication: Intubated Technique: Single frontal view of the chest was obtained Comparison: XY CHEST PORTABLE on DOS: 06/01/25, XY CHEST PORTABLE on DOS: 05/31/25. FINDINGS: Lines and Tubes: There is a right PICC with its tip terminating in the superior vena cava. The enteric tube terminates in the stomach. The endotracheal tube terminates 3.3 cm above the choco. Lungs: Bibasilar consolidation similar to prior study. Pleura: There are bilateral pleural effusions similar to prior study. No pneumothorax. Cardiomediastinal contours: Stable. Bones: No acute osseous abnormality. IMPRESSION: 1. Appropriate position of the support lines and tubes. 2. Bilateral pleural effusions and bibasilar consolidation.
[2025-06-02] MEDS: POTASSIUM CHL 20MEQ/100ML 100 ML IV SCH (05:35)
[2025-06-02 07:15] LABS: Base Excess -1.5 mmol/L (-2.0-3.0)
--- NOTE | 2025-06-02 09:22 | DVHPN2 ---
Subjective Patient denies any symptoms at this time. Reviewed: Care Plan, H&P, Labs, Medications Changes from previous H/P or p: No Changes General: Per HPI Objective Vitals Vital Signs Date Time Temp Pulse Resp B/P (MAP) Pulse Ox O2 Delivery O2 Flow Rate FiO2 06/02/25 08:45 77 20 103/37 (59) 100 30 06/02/25 06:00 Mechanical Ventilator+ 06/02/25 00:00 98.5 98.5 Intake/Output Intake and Output 06/02/25 07:00 Intake Total 284.847 ml Output Total 475 ml Balance -190.153 ml IV Total 177.847 ml Tube Feeding 107 ml Output Urine Total 475 ml General Appearance: Alert, mild distress, Other (Intubated and sedated) HEENT: Atraumatic, PERRLA, Other Lungs: Clear to auscultation, Normal air movement, Other (Mechanical ventilation) Cardiovascular: Normal S1, Normal S2, Other (Fibrillation with controlled rate) Abdomen: No tenderness, No hepatospenomegaly, Other (Hypoactive bowel sounds.) Genitourinary: No Apparent Abnormalities (Grewal catheter) Musculoskeletal: Normal sensory function, Normal motor function Extremities: No edema, Normal pulses, No tenderness/swelling Neuro: Cranial nerves 3-12 NL, Other Skin: Dry, Intact, Wounds, Other (Surgical wound D&I) Psych/Mental Status: Mood NL Medications Current Medications Medications Dose Ordered Sig/Gregory Route Start Time Stop Time Status Last Admin Dose Admin Pantoprazole Sodium 40 mg DAILY IV 04/16/25 10:00 06/01/25 09:46 40 MG Sodium Chloride 10 ml QSHIFT@10,22 IV 04/21/25 22:00 06/01/25 21:31 10 ML Albuterol 2.5 mg Q3HPRN PRN NEB 04/24/25 16:15 05/31/25 21:58 2.5 MG Morphine Sulfate 1 mg Q6HP PRN IV 04/30/25 10:30 05/02/25 17:58 1 MG Acetylcysteine 100 mg Q4HR NEB 05/05/25 10:00 UNV Enoxaparin Sodium 50 mg Q12HR SC 05/07/25 22:00 06/01/25 21:31 50 MG Acetaminophen 650 mg Q6HP PRN [place] 05/09/25 10:30 Vancomycin HCl 250 ml @ 200 mls/hr Q12H IV 05/09/25 18:00 Cancel Levalbuterol HCl 0.625 mg Q8HR NEB 05/11/25 14:00 06/02/25 06:19 0.625 MG Ipratropium [place] 0.5 mg Q8HR NEB 05/11/25 14:00 06/02/25 06:19 0.5 MG Potassium Acetate 40 meq/Potassium Phosphate 35 meq/ Calcium Gluconate 6.975 meq/ Magnesium Sulfate 26 meq/ Multivitamins 10 ml/Chromium/ Copper/Manganese/ Zinc 1 ml/Amino Acids/Dextrose 1,160.4545 ml @ 48.6 mls/hr [id number] IV 05/14/25 22:00 05/15/25 21:59 Cancel Metoclopramide HCl 5 mg Q6HR IV 05/20/25 18:00 06/02/25 05:34 5 MG Ceftriaxone Sodium 50 ml @ 100 mls/hr DAILY@09 IV 05/21/25 09:00 06/01/25 09:46 100 MLS/HR Fentanyl Citrate 250 ml @ 2.5 mls/hr Q24H IV 05/22/25 23:15 05/31/25 15:00 2.5 MLS/HR Norepinephrine Bitartrate 250 ml @ 3.75 mls/hr Q24H IV 05/23/25 03:30 05/24/25 02:59 15 MLS/HR Propofol 100 ml @ 1.563 mls/ hr Q24H IV 05/23/25 03:30 06/01/25 19:35 4.689 MLS/HR Artificial Tears 1 drop Q2HP PRN EACHEYE 05/24/25 13:15 Enteral Nutritional Formula 1,000 ml 30ML/HR GT 05/26/25 09:00 05/31/25 15:29 1,000 ML Potassium Chloride 100 ml @ 50 mls/hr Q2H IV 06/02/25 05:30 06/02/25 09:29 06/02/25 07:40 50 MLS/HR Laboratory Results Laboratory Tests 06/02/25 03:30 Chemistry Test 06/02/25 03:30 Albumin 2.8 g/dL (3.2-4.8) L Calcium Level 7.8 mg/dL (8.7-10.4) L Magnesium Level 1.8 mg/dL (1.6-2.6) Total Protein 5.1 g/dL (5.7-8.2) L LFT Test 06/02/25 03:30 Alanine Aminotransferase (ALT) 24 U/L (7-40) Alkaline Phosphatase 77 U/L (46-116) Aspartate Amino Transferase (AST) 21 U/L (13-40) Total Bilirubin 0.2 mg/dL (0.2-1.0) Urinalysis Test 04/15/25 15:45 05/11/25 14:35 Urine Amorphous Crystals Few /hpf (None Seen) Urine Hyaline Casts Few /lpf (0 - 2) Urine Mucus Few (None Seen) Urine Color Light-yellow (Yellow) Urine Clarity Clear (Clear) Urine pH 7.0 (5.0-9.0) Urine Specific [place] 1.021 (1.001-1.035) Urine Protein Negative (Negative) Urine Ketones Negative (Negative) Urine Blood 1+ /uL (Negative) H Urine Nitrite Negative (Negative) Urine Bilirubin Negative (Negative) Urine Urobilinogen Normal mg/dL (Negative) Urine Leukocyte Esterase Negative /uL (Negative) Urine RBC 55 /hpf (0 - 4) Urine Microscopic WBC 1 /HPF (0-5) Urine Squamous Epithelial Cells Few /hpf (<5) Urine Bacteria None seen /hpf (None Seen) Urine Glucose Normal mg/dL (Normal) Blood Gas Results Test 06/02/25 06:44 Arterial Blood pH 7.412 (7.350-7.450) FiO2 % 30.0 Microbiology Microbiology Date/Time Source Procedure Growth Status 05/22/25 22:15 Sputum Gram Stain - Final Complete 05/22/25 22:15 Sputum Respiratory Culture - Final Complete 05/16/25 13:14 Urine - [place] Urine Culture - Final Complete 05/09/25 11:22 Blood Blood Culture - Final NO GROWTH AFTER 5 DAYS OF INCUBATION. Complete 05/02/25 00:00 Nose MRSA Screen - Final Complete 04/30/25 14:30 Pleural Fluid Gram Stain - Final Complete 04/30/25 14:30 Pleural Fluid Body Fluid Culture - Final Complete Labs and/or images reviewed: Labs reviewed by me, Image(s) reviewed by me Assessment/Plan Assessment/Plan Impression: -choledocholithiasis -acute pancreatitis -small-bowel obstruction -dementia -cachexia -sepsis -COPD -GERD -Post op delirium -Accelerated HTN -A. fib Plan: Events: No events overnight. Patient is awake and able to follow some and seen with spontaneous breathing trial. Hold tube feeding with this time. -continue tube feeding -continue Reglan, lactulose -continue tube feeding -Continue current abx -PPI -full-dose anticoagulation -continue bronchodilators -CPAP trial and extubation per falsework builder -repeat labs in a.m. Critical care time spent with patient discussing and formulating plan of care: 90 minutes. This does not include time spent performing procedures. This medical document was created using an electronic medical record system with [employer] dictation system. Although this document has been carefully reviewed, there may still be some phonetic and typographical errors. These areas are purely typographical due to imperfections of the software programs, and do not reflect any compromise in the patient's medical care. Plan discussed with: Patient, Other (RN) My Orders Orders - JAYDEN HILL NP Procedure Category Date Status Time Cpap Trial For Am ORDERS 06/02/25 Transmitted 08:44 Furosemide Injection PHA 06/02/25 Logged (Lasix Injection) 09:30 Cpap/Sed Vacation Med ORDERS 06/02/25 Transmitted Weaning 09:16 Cpap/Sed Vacation Med ORDERS 06/02/25 Transmitted Weaning 09:16 Date of Service: Jun 02, 2025 Billing Provider: JAYDEN HILL NP Common Visit Codes: [id number] CARE 30-74 MIN JAYDEN HILL NP Jun 02, 2025 09:22
[2025-06-02] MEDS: FUROSEMIDE 20 MG/2 ML VIAL IV ONE (10:06)
--- NOTE | 2025-06-02 14:38 | DVHPN2 ---
Progress Note - Dictate Date Seen: Jun 02, 2025 Medical Necessity Reason Pt with a Central, PICC or Fol: Yes The following are medically ne: PICC Line, Grewal Catheter vital signs Vital Sign Date Time Temp Pulse Resp B/P (MAP) Pulse Ox O2 Delivery O2 Flow Rate FiO2 06/02/25 13:08 70 14 146/62 (90) 97 30 06/02/25 12:00 97.4 97.4 06/02/25 12:00 Mechanical Ventilator+ Total Intake and Output 06/01/25 06/01/25 06/02/25 15:00 23:00 07:00 Intake Total 57.512 ml 65.012 ml 217.949 ml Output Total 225 ml 250 ml Balance 57.512 ml -159.988 ml -32.051 ml medications Current Medications Medications Dose Ordered Sig/Gregory Route Start Time Stop Time Status Last Admin Dose Admin Pantoprazole Sodium 40 mg DAILY IV 04/16/25 10:00 06/02/25 09:57 40 MG Sodium Chloride 10 ml QSHIFT@, IV 04/21/25 22:00 06/02/25 09:57 10 ML Albuterol 2.5 mg Q3HPRN PRN NEB 04/24/25 16:15 05/31/25 21:58 2.5 MG Morphine Sulfate 1 mg Q6HP PRN IV 04/30/25 10:30 05/02/25 17:58 1 MG Acetylcysteine 100 mg Q4HR NEB 05/05/25 10:00 UNV Enoxaparin Sodium 50 mg Q12HR SC 05/07/25 22:00 06/02/25 09:57 50 MG Acetaminophen 650 mg Q6HP PRN [place] 05/09/25 10:30 Vancomycin HCl 250 ml @ 200 mls/hr Q12H IV 05/09/25 18:00 Cancel Levalbuterol HCl 0.625 mg Q8HR NEB 05/11/25 14:00 06/02/25 14:32 0.625 MG Ipratropium [place] 0.5 mg Q8HR NEB 05/11/25 14:00 06/02/25 14:32 0.5 MG Potassium Acetate 40 meq/Potassium Phosphate 35 meq/ Calcium Gluconate 6.975 meq/ Magnesium Sulfate 26 meq/ Multivitamins 10 ml/Chromium/ Copper/Manganese/ Zinc 1 ml/Amino Acids/Dextrose 1,160.4545 ml @ 48.6 mls/hr [id number] IV 05/14/25 22:00 05/15/25 21:59 Cancel Metoclopramide HCl 5 mg Q6HR IV 05/20/25 18:00 06/02/25 12:53 5 MG Ceftriaxone Sodium 50 ml @ 100 mls/hr DAILY@09 IV 05/21/25 09:00 06/02/25 09:57 100 MLS/HR Fentanyl Citrate 250 ml @ 2.5 mls/hr Q24H IV 05/22/25 23:15 05/31/25 15:00 2.5 MLS/HR Norepinephrine Bitartrate 250 ml @ 3.75 mls/hr Q24H IV 05/23/25 03:30 05/24/25 02:59 15 MLS/HR Propofol 100 ml @ 1.563 mls/ hr Q24H IV 05/23/25 03:30 06/01/25 19:35 4.689 MLS/HR Artificial Tears 1 drop Q2HP PRN EACHEYE 05/24/25 13:15 Enteral Nutritional Formula 1,000 ml 30ML/HR GT 05/26/25 09:00 05/31/25 15:29 1,000 ML laboratory and microbiology Laboratory Tests 06/02/25 03:30 Test 06/02/25 03:30 Range/Units Serum Glucose 70 L 74-106 mg/dL Assessment/Plan Impression Acute hypoxemic respiratory failure Lung collapse Pneumonia Atelectasis SBO Patient seen and examined in ICU Events on [facility] ventilation s/p intubation PEEP 5, FiO2 30% Fails weaning trial Labs and imaging reviewed Chest x-ray shows bilateral pleural effusions ABG reviewed Management sedation per protocol ac volume control vent support adjust daily abg's and CXR Continue antibiotics F/u cultures Bronchodilators Monitor renal function Monitor electrolytes Supplement as needed F/u general surgery DVT prophylaxis Prognosis questionable May require tracheostomy Family requesting more time Will consider thoracentesis Hold Lovenox in AM Critical care time 35 minutes Dietary Evaluation Review Recommendations by RD: PPN/TPN Comments: 1) Increase TPN to meet at least 75% estimated daily needs 2) Advance to cardiac diet when medically feasible 3) Follow-up with gastroenterology and neurology 4) Continue to monitor I&O, labs, and skin integrity Expected Outcomes/Goals: 1) nutrition support to meet at least 75% estimated daily needs 2) labs to improve 3) diet to advance 4) gradual wt gain 5) f/u in 2-3 days Plan discussed with: Patient BRUNO GOLDMAN MD Jun 02, 2025 14:38
--- NOTE | 2025-06-02 21:19 | DVHPN2 ---
Progress Note Date Seen: Jun 02, 2025 Medical Necessity Reason Pt with a Central, PICC or Fol: Yes The following are medically ne: PICC Line, Grewal Catheter Objective vital signs Vital Sign Date Time Temp Pulse Resp B/P (MAP) Pulse Ox O2 Delivery O2 Flow Rate FiO2 06/02/25 20:00 79 06/02/25 20:00 20 100 Mechanical Ventilator+ 30 30 06/02/25 19:56 139/55 (83) 06/02/25 16:00 99.4 99.4 Total Intake and Output 06/01/25 06/01/25 06/02/25 15:00 23:00 07:00 Intake Total 57.512 ml 65.012 ml 217.949 ml Output Total 225 ml 250 ml Balance 57.512 ml -159.988 ml -32.051 ml medications Current Medications Medications Dose Ordered Sig/Gregory Route Start Time Stop Time Status Last Admin Dose Admin Pantoprazole Sodium 40 mg DAILY IV 04/16/25 10:00 06/02/25 09:57 40 MG Sodium Chloride 10 ml QSHIFT@10,22 IV 04/21/25 22:00 06/02/25 09:57 10 ML Albuterol 2.5 mg Q3HPRN PRN NEB 04/24/25 16:15 05/31/25 21:58 2.5 MG Morphine Sulfate 1 mg Q6HP PRN IV 04/30/25 10:30 05/02/25 17:58 1 MG Acetylcysteine 100 mg Q4HR NEB 05/05/25 10:00 UNV Acetaminophen 650 mg Q6HP PRN [place] 05/09/25 10:30 Vancomycin HCl 250 ml @ 200 mls/hr Q12H IV 05/09/25 18:00 Cancel Levalbuterol HCl 0.625 mg Q8HR NEB 05/11/25 14:00 06/02/25 14:32 0.625 MG Ipratropium [place] 0.5 mg Q8HR NEB 05/11/25 14:00 06/02/25 14:32 0.5 MG Potassium Acetate 40 meq/Potassium Phosphate 35 meq/ Calcium Gluconate 6.975 meq/ Magnesium Sulfate 26 meq/ Multivitamins 10 ml/Chromium/ Copper/Manganese/ Zinc 1 ml/Amino Acids/Dextrose 1,160.4545 ml @ 48.6 mls/hr [id number] IV 05/14/25 22:00 05/15/25 21:59 Cancel Metoclopramide HCl 5 mg Q6HR IV 05/20/25 18:00 06/02/25 17:02 5 MG Ceftriaxone Sodium 50 ml @ 100 mls/hr DAILY@09 IV 05/21/25 09:00 06/02/25 09:57 100 MLS/HR Fentanyl Citrate 250 ml @ 2.5 mls/hr Q24H IV 05/22/25 23:15 05/31/25 15:00 2.5 MLS/HR Norepinephrine Bitartrate 250 ml @ 3.75 mls/hr Q24H IV 05/23/25 03:30 05/24/25 02:59 15 MLS/HR Propofol 100 ml @ 1.563 mls/ hr Q24H IV 05/23/25 03:30 06/01/25 19:35 4.689 MLS/HR Artificial Tears 1 drop Q2HP PRN EACHEYE 05/24/25 13:15 Enteral Nutritional Formula 1,000 ml 30ML/HR GT 05/26/25 09:00 05/31/25 15:29 1,000 ML Enoxaparin Sodium 50 mg Q12HR SC 06/03/25 22:00 laboratory and microbiology Laboratory Tests 06/02/25 03:30 Test 06/02/25 03:30 Range/Units Serum Glucose 70 L 74-106 mg/dL Microbiology Date/Time Source Procedure Growth Status 05/22/25 22:15 Sputum Gram Stain - Final Complete 05/22/25 22:15 Sputum Respiratory Culture - Final Complete 05/16/25 13:14 Urine - [place] Urine Culture - Final Complete 05/09/25 11:22 Blood Blood Culture - Final NO GROWTH AFTER 5 DAYS OF INCUBATION. Complete 05/02/25 00:00 Nose MRSA Screen - Final Complete 04/30/25 14:30 Pleural Fluid Gram Stain - Final Complete 04/30/25 14:30 Pleural Fluid Body Fluid Culture - Final Complete Problem List/Assessment/Plan Problem List/Assessment/Plan REMAINS INTUBATED AFEBRILE VSS AWAKE AND RESPONSIVE ABD SOFT NON DISTENDED TUBE FEEDS ON HOLD CONTINUE SUPPORTIVE CARE FAMILY AWARE OF PT CONDITION CPAP ATTEMPTED POSSIBLE THORACENTESIS AM PER PULM ONGOING PULM EVAL FOR POSSIBLE CPAP AND EXTUBATION CONTINUE CLOSE OBSERVATION Plan discussed with: Other Dietary Evaluation Review Recommendations by RD: PPN/TPN Comments: 1) Increase TPN to meet at least 75% estimated daily needs 2) Advance to cardiac diet when medically feasible 3) Follow-up with gastroenterology and neurology 4) Continue to monitor I&O, labs, and skin integrity Expected Outcomes/Goals: 1) nutrition support to meet at least 75% estimated daily needs 2) labs to improve 3) diet to advance 4) gradual wt gain 5) f/u in 2-3 days GLORIA MCNEAL MD Jun 02, 2025 21:19
[2025-06-03] VITALS (101 sets, daily range): BP systolic 70–190; BP diastolic 33–89; PULSE 63–123; RESP 11–32; TEMP 99–99.9; O2SAT 10–100
[2025-06-03 04:29] LABS: Nucleated Red Blood Cells % 0.1 %
[2025-06-03 04:30] LABS: Hematocrit 25.8 % (36.0-46.0); Hemoglobin 8.3 g/dL (12.2-16.2); Mean Corpuscular Hemoglobin 32.5 pg (28.0-32.0); Mean Corpuscular Volume 100.8 fL (80.0-100.0)
[2025-06-03 04:58] LABS: Alanine Aminotransferase 24 U/L (7-40); Alkaline Phosphatase 77 U/L (46-116); Anion Gap 14 (5-15); BUN/Creatinine Ratio 32.4 (10.0-20.0); Blood Urea Nitrogen 11 mg/dL (9-23); Carbon Dioxide 26 mmol/L (20-31); Chloride 106 mmol/L (98-107); Glucose 79 mg/dL (74-106)
--- NOTE | 2025-06-03 04:58 | DVH ---
CHEST RADIOGRAPH Indication: intubated Technique: Single frontal view of the chest was obtained COMPARISON: XY CHEST PORTABLE on DOS: 06/02/25, XY CHEST PORTABLE on DOS: 06/01/25, XY CHEST PORTABLE on DOS: 05/31/25, XY CHEST PORTABLE on DOS: 05/29/25, XY CHEST PORTABLE on DOS: 05/28/25 FINDINGS: Lines and Tubes: Endotracheal tube, enteric catheter in satisfactory position. Right midline overlies the subclavian vein. Lungs: Unchanged pulmonary edema. Pleura: Small left pleural effusion. No pneumothorax. Cardiomediastinal contours: Unremarkable Bones: Unremarkable IMPRESSION: Unchanged pulmonary edema.
[2025-06-03 04:59] LABS: Albumin 2.8 g/dL (3.2-4.8); Bilirubin, Total 0.2 mg/dL (0.2-1.0); Calcium 7.9 mg/dL (8.7-10.4); Potassium 3.1 mmol/L (3.5-5.1); Sodium 146 mmol/L (136-145); Total Protein 5.5 g/dL (5.7-8.2)
[2025-06-03] MEDS: POTASSIUM CHL 20MEQ/100ML 100 ML IV SCH (10:02)
--- NOTE | 2025-06-03 10:16 | DVH ---
CHEST RADIOGRAPH Indication: s/p right thoracentesis Technique: Single frontal view of the chest was obtained COMPARISON: XY CHEST PORTABLE on DOS: 06/03/25, XY CHEST PORTABLE on DOS: 06/02/25, XY CHEST PORTABLE on DOS: 06/01/25, XY CHEST PORTABLE on DOS: 05/31/25, XY CHEST PORTABLE on DOS: 05/29/25 FINDINGS: Lines and Tubes: Endotracheal tube and enteric catheter in satisfactory position. Right PICC in satisfactory position. Lungs: Increased interstitial prominence. This may represent pulmonary vascular congestion and/or viral pneumonia. Pleura: Small left pleural effusion. No pneumothorax. Cardiomediastinal contours: Unremarkable Bones: Unremarkable IMPRESSION: No appreciable pneumothorax post right thoracentesis.
--- NOTE | 2025-06-03 10:16 | DVHPN2 ---
Subjective Patient denies any symptoms at this time. Reviewed: Care Plan, H&P, Labs, Medications Changes from previous H/P or p: No Changes General: Per HPI Objective Vitals Vital Signs Date Time Temp Pulse Resp B/P (MAP) Pulse Ox O2 Delivery O2 Flow Rate FiO2 06/03/25 10:04 97 8.0 06/03/25 09:39 21 06/03/25 09:00 81 148/48 (81) 06/03/25 08:30 30 06/03/25 08:00 99.5 99.5 06/03/25 08:00 Mechanical Ventilator+ Intake/Output Intake and Output 06/03/25 07:00 Intake Total 566.063 ml Output Total 2250 ml Balance -1683.937 ml Intake Oral 90 ml IV Total 244.063 ml Tube Feeding 232 ml Output Urine Total 2250 ml General Appearance: Alert, mild distress, Other (Intubated and sedated) HEENT: Atraumatic, PERRLA, Other Lungs: Clear to auscultation, Normal air movement, Other (Mechanical ventilation) Cardiovascular: Normal S1, Normal S2, Other (Fibrillation with controlled rate) Abdomen: No tenderness, No hepatospenomegaly, Other (Hypoactive bowel sounds.) Genitourinary: No Apparent Abnormalities (Grewal catheter) Musculoskeletal: Normal sensory function, Normal motor function Extremities: No edema, Normal pulses, No tenderness/swelling Neuro: Cranial nerves 3-12 NL, Other Skin: Dry, Intact, Wounds, Other (Surgical wound D&I) Psych/Mental Status: Mood NL Medications Current Medications Medications Dose Ordered Sig/Gregory Route Start Time Stop Time Status Last Admin Dose Admin Pantoprazole Sodium 40 mg DAILY IV 04/16/25 10:00 06/03/25 10:02 40 MG Sodium Chloride 10 ml QSHIFT@10,22 IV 04/21/25 22:00 06/03/25 10:02 10 ML Albuterol 2.5 mg Q3HPRN PRN NEB 04/24/25 16:15 05/31/25 21:58 2.5 MG Morphine Sulfate 1 mg Q6HP PRN IV 04/30/25 10:30 05/02/25 17:58 1 MG Acetylcysteine 100 mg Q4HR NEB 05/05/25 10:00 UNV Acetaminophen 650 mg Q6HP PRN MS 05/09/25 10:30 Vancomycin HCl 250 ml @ 200 mls/hr Q12H IV 05/09/25 18:00 Cancel Levalbuterol HCl 0.625 mg Q8HR NEB 05/11/25 14:00 06/03/25 06:21 0.625 MG Ipratropium [place] 0.5 mg Q8HR NEB 05/11/25 14:00 06/03/25 06:21 0.5 MG Potassium Acetate 40 meq/Potassium Phosphate 35 meq/ Calcium Gluconate 6.975 meq/ Magnesium Sulfate 26 meq/ Multivitamins 10 ml/Chromium/ Copper/Manganese/ Zinc 1 ml/Amino Acids/Dextrose 1,160.4545 ml @ 48.6 mls/hr [id number] IV 05/14/25 22:00 05/15/25 21:59 Cancel Metoclopramide HCl 5 mg Q6HR IV 05/20/25 18:00 06/03/25 05:50 5 MG Ceftriaxone Sodium 50 ml @ 100 mls/hr DAILY@09 IV 05/21/25 09:00 06/03/25 10:02 100 MLS/HR Fentanyl Citrate 250 ml @ 2.5 mls/hr Q24H IV 05/22/25 23:15 06/03/25 06:09 2.5 MLS/HR Norepinephrine Bitartrate 250 ml @ 3.75 mls/hr Q24H IV 05/23/25 03:30 05/24/25 02:59 15 MLS/HR Propofol 100 ml @ 1.563 mls/ hr Q24H IV 05/23/25 03:30 06/01/25 19:35 4.689 MLS/HR Artificial Tears 1 drop Q2HP PRN EACHEYE 05/24/25 13:15 Enteral Nutritional Formula 1,000 ml 30ML/HR GT 05/26/25 09:00 05/31/25 15:29 1,000 ML Enoxaparin Sodium 50 mg Q12HR SC 06/03/25 22:00 Potassium Chloride 100 ml @ 50 mls/hr Q2H IV 06/03/25 09:15 06/03/25 15:14 06/03/25 10:02 50 MLS/HR Laboratory Results Laboratory Tests 06/03/25 03:31 Chemistry Test 06/03/25 03:31 Albumin 2.8 g/dL (3.2-4.8) L Calcium Level 7.9 mg/dL (8.7-10.4) L Total Protein 5.5 g/dL (5.7-8.2) L LFT Test 06/03/25 03:31 Alanine Aminotransferase (ALT) 24 U/L (7-40) Alkaline Phosphatase 77 U/L (46-116) Aspartate Amino Transferase (AST) 20 U/L (13-40) Total Bilirubin 0.2 mg/dL (0.2-1.0) Urinalysis Test 04/15/25 15:45 05/11/25 14:35 Urine Amorphous Crystals Few /hpf (None Seen) Urine Hyaline Casts Few /lpf (0 - 2) Urine Mucus Few (None Seen) Urine Color Light-yellow (Yellow) Urine Clarity Clear (Clear) Urine pH 7.0 (5.0-9.0) Urine Specific [place] 1.021 (1.001-1.035) Urine Protein Negative (Negative) Urine Ketones Negative (Negative) Urine Blood 1+ /uL (Negative) H Urine Nitrite Negative (Negative) Urine Bilirubin Negative (Negative) Urine Urobilinogen Normal mg/dL (Negative) Urine Leukocyte Esterase Negative /uL (Negative) Urine RBC 55 /hpf (0 - 4) Urine Microscopic WBC 1 /HPF (0-5) Urine Squamous Epithelial Cells Few /hpf (<5) Urine Bacteria None seen /hpf (None Seen) Urine Glucose Normal mg/dL (Normal) Microbiology Microbiology Date/Time Source Procedure Growth Status 05/22/25 22:15 Sputum Gram Stain - Final Complete 05/22/25 22:15 Sputum Respiratory Culture - Final Complete 05/16/25 13:14 Urine - [place] Urine Culture - Final Complete 05/09/25 11:22 Blood Blood Culture - Final NO GROWTH AFTER 5 DAYS OF INCUBATION. Complete 05/02/25 00:00 Nose MRSA Screen - Final Complete 04/30/25 14:30 Pleural Fluid Gram Stain - Final Complete 04/30/25 14:30 Pleural Fluid Body Fluid Culture - Final Complete Labs and/or images reviewed: Labs reviewed by me, Image(s) reviewed by me Assessment/Plan Assessment/Plan Impression: -choledocholithiasis -acute pancreatitis -small-bowel obstruction -dementia -cachexia -sepsis -COPD -GERD -Post op delirium -Accelerated HTN -A. fib Plan: Events: No events overnight. Plans for thoracentesis today and proceed with spontaneous breathing trial. -continue tube feeding -continue Reglan, lactulose, add Dulcolax suppository -continue tube feeding -Continue current abx -PPI -full-dose anticoagulation -continue bronchodilators -CPAP trial and extubation per monitoring specialist -repeat labs in a.m. Critical care time spent with patient discussing and formulating plan of care: 90 minutes. This does not include time spent performing procedures. This medical document was created using an electronic medical record system with [employer] dictation system. Although this document has been carefully reviewed, there may still be some phonetic and typographical errors. These areas are purely typographical due to imperfections of the software programs, and do not reflect any compromise in the patient's medical care. Plan discussed with: Patient, Other (RN) My Orders Orders - JAYDEN HILL NP Procedure Category Date Status Time Potassium Chl PHA 06/03/25 In Process 20meq/100ml 09:15 Basic Metabolic Panel LAB 06/04/25 Verified 04:00 Magnesium LAB 06/04/25 Verified 04:00 Chest Portable XY 06/04/25 Logged 04:00 Bisacodyl Suppository PHA 06/03/25 Logged (Dulcolax Supposit 10:15 Date of Service: Jun 03, 2025 Billing Provider: JAYDEN HILL NP Common Visit Codes: [id number] CARE 30-74 MIN JAYDEN HILL NP Jun 03, 2025 10:16
--- NOTE | 2025-06-03 11:26 | DVHPN2 ---
Progress Note - Dictate Date Seen: Jun 03, 2025 Medical Necessity Reason Pt with a Central, PICC or Fol: Yes The following are medically ne: PICC Line, Grewal Catheter vital signs Vital Sign Date Time Temp Pulse Resp B/P (MAP) Pulse Ox O2 Delivery O2 Flow Rate FiO2 06/03/25 10:30 84 17 141/42 (75) 99 06/03/25 10:04 8.0 06/03/25 10:00 30 06/03/25 10:00 Cool Aerosol 06/03/25 08:00 99.5 99.5 Total Intake and Output 06/02/25 06/02/25 06/03/25 15:00 23:00 07:00 Intake Total 204.063 ml 200.0 ml 162.0 ml Output Total 2000 ml 250 ml Balance 204.063 ml -1800.0 ml -88.0 ml medications Current Medications Medications Dose Ordered Sig/Gregory Route Start Time Stop Time Status Last Admin Dose Admin Pantoprazole Sodium 40 mg DAILY IV 04/16/25 10:00 06/03/25 10:02 40 MG Sodium Chloride 10 ml QSHIFT@,22 IV 04/21/25 22:00 06/03/25 10:02 10 ML Albuterol 2.5 mg Q3HPRN PRN NEB 04/24/25 16:15 05/31/25 21:58 2.5 MG Morphine Sulfate 1 mg Q6HP PRN IV 04/30/25 10:30 05/02/25 17:58 1 MG Acetylcysteine 100 mg Q4HR NEB 05/05/25 10:00 UNV Acetaminophen 650 mg Q6HP PRN [place] 05/09/25 10:30 Vancomycin HCl 250 ml @ 200 mls/hr Q12H IV 05/09/25 18:00 Cancel Levalbuterol HCl 0.625 mg Q8HR NEB 05/11/25 14:00 06/03/25 06:21 0.625 MG Ipratropium [place] 0.5 mg Q8HR NEB 05/11/25 14:00 06/03/25 06:21 0.5 MG Potassium Acetate 40 meq/Potassium Phosphate 35 meq/ Calcium Gluconate 6.975 meq/ Magnesium Sulfate 26 meq/ Multivitamins 10 ml/Chromium/ Copper/Manganese/ Zinc 1 ml/Amino Acids/Dextrose 1,160.4545 ml @ 48.6 mls/hr [id number] IV 05/14/25 22:00 05/15/25 21:59 Cancel Metoclopramide HCl 5 mg Q6HR IV 05/20/25 18:00 06/03/25 11:19 5 MG Ceftriaxone Sodium 50 ml @ 100 mls/hr DAILY@09 IV 05/21/25 09:00 06/03/25 10:02 100 MLS/HR Fentanyl Citrate 250 ml @ 2.5 mls/hr Q24H IV 05/22/25 23:15 06/03/25 06:09 2.5 MLS/HR Norepinephrine Bitartrate 250 ml @ 3.75 mls/hr Q24H IV 05/23/25 03:30 05/24/25 02:59 15 MLS/HR Propofol 100 ml @ 1.563 mls/ hr Q24H IV 05/23/25 03:30 06/01/25 19:35 4.689 MLS/HR Artificial Tears 1 drop Q2HP PRN EACHEYE 05/24/25 13:15 Enteral Nutritional Formula 1,000 ml 30ML/HR GT 05/26/25 09:00 05/31/25 15:29 1,000 ML Enoxaparin Sodium 50 mg Q12HR SC 06/03/25 22:00 Potassium Chloride 100 ml @ 50 mls/hr Q2H IV 06/03/25 09:15 06/03/25 15:14 06/03/25 10:02 50 MLS/HR laboratory and microbiology Laboratory Tests 06/03/25 03:31 Test 06/03/25 03:31 Range/Units Serum Glucose 79 74-106 mg/dL Assessment/Plan Impression Acute hypoxemic respiratory failure Lung collapse Pneumonia Atelectasis SBO Patient seen and examined in ICU Events Thoracentesis was performed at the bedside Approximately 900cc of fluid was drained from the right pleural space See separate note for procedure in detail Patient was successfully weaned from mechanical ventilation S/p extubation Transitioned to facemask Labs and imaging reviewed Chest x-ray shows bilateral pleural effusions ABG reviewed Management supplemental oxygen titrate to maintain sats 90% or above incentive spirometry aspiration precautions swallow evaluation Continue antibiotics F/u cultures Bronchodilators Monitor renal function Monitor electrolytes Supplement as needed F/u general surgery DVT prophylaxis Critical care time 35 minutes Dietary Evaluation Review Recommendations by RD: PPN/TPN Comments: 1) Increase TPN to meet at least 75% estimated daily needs 2) Advance to cardiac diet when medically feasible 3) Follow-up with gastroenterology and neurology 4) Continue to monitor I&O, labs, and skin integrity Expected Outcomes/Goals: 1) nutrition support to meet at least 75% estimated daily needs 2) labs to improve 3) diet to advance 4) gradual wt gain 5) f/u in 2-3 days Plan discussed with: Other (Rn) BRUNO GOLDMAN MD Jun 03, 2025 11:26
--- NOTE | 2025-06-03 11:27 | DVHNC2 ---
Procedure - Procedure- Right sided Thoracentesis ultrasound guided Indication- Pleural effusions Procedure in detail Consent was obtained and timeout performed per protocol. The patient was placed in the decubitus position and ultrasound SonoSite was used to localize pleural fluid. ChloraPrep was used to clean the operative field and Lidocaine for local analgesia. Thoracentesis catheter was advanced over the needle, attached to the suction bottle and approximately 900 cc of fluid was drained from the right pleural space. At the end of the procedure, the catheter was removed and dressing applied. Samples obtained for diagnostic testing. Chest-x ray ordered. No complications BRUNO GOLDMAN MD Jun 03, 2025 11:27
[2025-06-03] MEDS: BISACODYL 10 MG RECT SUPP PR ONE (12:44)
--- NOTE | 2025-06-03 14:23 | DVHPN2 ---
Progress Note - Dictate Date Seen: Jun 03, 2025 Medical Necessity Reason Pt with a Central, PICC or Fol: Yes The following are medically ne: PICC Line, Grewal Catheter Subjective Patient underwent right-sided thoracentesis today with removal of 900 mL of fluid Patient has since been extubated and currently is on a simple face mask She is receiving NG tube feedings but she has some high gastric residuals No bowel movements for the last five days vital signs Vital Sign Date Time Temp Pulse Resp B/P (MAP) Pulse Ox O2 Delivery O2 Flow Rate FiO2 06/03/25 13:30 85 27 150/54 (86) 100 06/03/25 12:00 99.4 99.4 06/03/25 12:00 Cool Aerosol 8 30 30 Total Intake and Output 06/02/25 06/02/25 06/03/25 15:00 23:00 07:00 Intake Total 204.063 ml 200.0 ml 162.0 ml Output Total 2000 ml 250 ml Balance 204.063 ml -1800.0 ml -88.0 ml medications Current Medications Medications Dose Ordered Sig/Gregory Route Start Time Stop Time Status Last Admin Dose Admin Pantoprazole Sodium 40 mg DAILY IV 04/16/25 10:00 06/03/25 10:02 40 MG Sodium Chloride 10 ml QSHIFT@10,22 IV 04/21/25 22:00 06/03/25 10:02 10 ML Albuterol 2.5 mg Q3HPRN PRN NEB 04/24/25 16:15 05/31/25 21:58 2.5 MG Morphine Sulfate 1 mg Q6HP PRN IV 04/30/25 10:30 05/02/25 17:58 1 MG Acetylcysteine 100 mg Q4HR NEB 05/05/25 10:00 UNV Acetaminophen 650 mg Q6HP PRN [place] 05/09/25 10:30 Vancomycin HCl 250 ml @ 200 mls/hr Q12H IV 05/09/25 18:00 Cancel Levalbuterol HCl 0.625 mg Q8HR NEB 05/11/25 14:00 06/03/25 06:21 0.625 MG Ipratropium [place] 0.5 mg Q8HR NEB 05/11/25 14:00 06/03/25 06:21 0.5 MG Potassium Acetate 40 meq/Potassium Phosphate 35 meq/ Calcium Gluconate 6.975 meq/ Magnesium Sulfate 26 meq/ Multivitamins 10 ml/Chromium/ Copper/Manganese/ Zinc 1 ml/Amino Acids/Dextrose 1,160.4545 ml @ 48.6 mls/hr [id number] IV 05/14/25 22:00 05/15/25 21:59 Cancel Metoclopramide HCl 5 mg Q6HR IV 05/20/25 18:00 06/03/25 11:19 5 MG Ceftriaxone Sodium 50 ml @ 100 mls/hr DAILY@09 IV 05/21/25 09:00 06/03/25 10:02 100 MLS/HR Fentanyl Citrate 250 ml @ 2.5 mls/hr Q24H IV 05/22/25 23:15 06/03/25 06:09 2.5 MLS/HR Norepinephrine Bitartrate 250 ml @ 3.75 mls/hr Q24H IV 05/23/25 03:30 05/24/25 02:59 15 MLS/HR Propofol 100 ml @ 1.563 mls/ hr Q24H IV 05/23/25 03:30 06/01/25 19:35 4.689 MLS/HR Artificial Tears 1 drop Q2HP PRN EACHEYE 05/24/25 13:15 Enoxaparin Sodium 50 mg Q12HR SC 06/03/25 22:00 Potassium Chloride 100 ml @ 50 mls/hr Q2H IV 06/03/25 09:15 06/03/25 15:14 06/03/25 12:46 50 MLS/HR Enteral Nutritional Formula 1,000 ml 40ML/HR GT 06/03/25 13:30 objective General Appearance: Extubated, simple face mask HEENT: PERRLA, EOMI Lungs: Decreased breath sound on left lower lung. High-flow at 50% FiO2 Cardiovascular: Normal S1, Normal S2 Abdomen: No tenderness, No hepatospenomegaly, hypoactive bowel sounds, surgical wound dry Genitourinary: No Apparent Abnormalities (Grewal catheter) Musculoskeletal: Normal sensory function, Normal motor function Extremities: No edema, Normal pulses, No tenderness/swelling laboratory and microbiology Laboratory Tests 06/03/25 03:31 Test 06/03/25 03:31 Range/Units Serum Glucose 79 74-106 mg/dL Problems(with codes): (1) Ileus (2) Choledocholithiasis (3) Acute respiratory distress (4) Small bowel obstruction (5) COPD (chronic obstructive pulmonary disease) Prognosis Plan Change TPN formulation to Vital high-protein because of high gastric residuals as recommended by nutrition consult Continue Reglan 5 mg IV q.8 hours Patient is getting Dulcolax suppositories Continue supportive care Patient is DNR prognosis remains guarded Dietary Evaluation Review Recommendations by RD: PPN/TPN Comments: 1) Increase TPN to meet at least 75% estimated daily needs 2) Advance to cardiac diet when medically feasible 3) Follow-up with gastroenterology and neurology 4) Continue to monitor I&O, labs, and skin integrity Expected Outcomes/Goals: 1) nutrition support to meet at least 75% estimated daily needs 2) labs to improve 3) diet to advance 4) gradual wt gain 5) f/u in 2-3 days Plan discussed with: Other (ICU Nurse Karma) JIL MCNEAL MD Jun 03, 2025 14:23
[2025-06-03] MEDS: Vital High Protein 1liter Bottle GT SCH (18:35)
[2025-06-03] MEDS: ENALAPRILAT 1.25 MG/ML-1ML VIAL IV PRN (20:31)
[2025-06-03] MEDS: ENOXAPARIN SOD 60 MG/0.6 ML SYRINGE SC SCH (22:02)
--- NOTE | 2025-06-04 08:56 | DVHDS2 ---
Discharge Summary Date of Admission Apr 15, 2025 at 19:23 Date of Discharge: Apr 18, 2025 Admitting Diagnosis Abdominal pain Labs/Diagnostic Data: Laboratory Results Test 06/03/25 03:31 06/02/25 06:44 06/02/25 03:30 06/01/25 07:19 White Blood Count 4.3 10^3/uL (4.4-10.8) Red Blood Count 2.56 10^6/uL (4.0-5.20) Hemoglobin 8.3 g/dL (12.2-16.2) Hematocrit 25.8 % (36.0-46.0) Mean Corpuscular Volume 100.8 fL (80.0-100.0) Mean Corpuscular Hemoglobin 32.5 pg (28.0-32.0) Mean Corpuscular Hemoglobin Concent 32.3 g/dL (32.0-36.0) Red Cell Distribution Width 20.3 % (11.8-14.3) Platelet Count 228 10^3/uL (140-450) Mean Platelet Volume 9.3 fL (6.9-10.8) Neutrophils (%) (Auto) 75.3 % (37.0-80.0) Lymphocytes (%) (Auto) 16.1 % (10.0-50.0) Monocytes (%) (Auto) 6.7 % (0.0-12.0) Eosinophils (%) (Auto) 0.8 % (0.0-7.0) Basophils (%) (Auto) 1.1 % (0.0-2.0) Neutrophils # (Auto) 3.2 10 ^3/uL (1.6-8.6) Lymphocytes # (Auto) 0.7 10 ^3/uL (0.4-5.4) Monocytes # (Auto) 0.3 10 ^3/uL (0-1.3) Eosinophils # (Auto) 0 10 ^3/uL (0-0.8) Basophils # (Auto) 0 10 ^3/uL (0-0.2) Nucleated Red Blood Cells 0.1 % Sodium Level 146 mmol/L (136-145) Potassium Level 3.1 mmol/L (3.5-5.1) Chloride Level 106 mmol/L (98-107) Carbon Dioxide Level 26 mmol/L (20-31) Anion Gap 14 (5-15) Blood Urea Nitrogen 11 mg/dL (9-23) Creatinine 0.34 mg/dL (0.550-1.02) Glomerular Filtration Rate Calc 98 mL/min (>90) BUN/Creatinine Ratio 32.4 (10.0-20.0) Serum Glucose 79 mg/dL (74-106) Calcium Level 7.9 mg/dL (8.7-10.4) Total Bilirubin 0.2 mg/dL (0.2-1.0) Aspartate Amino Transferase (AST) 20 U/L (13-40) Alanine Aminotransferase (ALT) 24 U/L (7-40) Alkaline Phosphatase 77 U/L (46-116) Total Protein 5.5 g/dL (5.7-8.2) Albumin 2.8 g/dL (3.2-4.8) Blood Gas Specimen Type Arterial Blood Gas Sample Site Right radial Blood Gas Patient Temperature 37.0 Arterial Blood Date Drawn [id number] Arterial Blood pH 7.412 (7.350-7.450) Arterial Blood Partial Pressure CO2 36.6 mmHg (32.0-45.0) Arterial Blood Partial Pressure O2 87.4 mmHg (83.0-108.0) Arterial Blood HCO3 22.8 mmol/L (21.0-28.0) Arterial Blood Oxygen Saturation 95.5 % (94.0-98.0) Arterial Blood Base Excess -1.5 mmol/L (-2.0-3.0) Arterial Blood Oxyhemoglobin 94.7 % (94.0-98.0) Arterial Blood Carboxyhemoglobin 0.6 % (0.5-1.5) Arterial Blood Methemoglobin 0.2 % (0.0-1.5) Arterial Blood Deoxyhemoglobin 4.5 % (0.0-5.0) Yaya Test Modified Blood Gas Total Hemoglobin 9.50 g/dL (12.0-16.0) Blood Gas Set Respiration Rate 16.0 Blood Gas Modality Vent - ac FiO2 % 30.0 Blood Gas Tidal Volume 400.0 Blood Gas PEEP or CPAP 5.0 Magnesium Level 1.8 mg/dL (1.6-2.6) Blood Gas Comments Test 05/29/25 12:29 05/27/25 03:50 05/26/25 06:39 05/26/25 03:50 Blood Gas Pressure Support 8 Prothrombin Time 11.3 sec (9.3-11.8) Prothrombin Time INR 1.07 (0.9-1.15) Activated Partial Thromboplast Time 36.5 SEC (24.5-34.5) POC Glucose 125 mg/dl (70-106) Phosphorus Level 3.1 mg/dL (2.4-5.1) Test 05/22/25 21:50 05/21/25 03:22 05/20/25 15:16 05/20/25 15:10 Blood Gas Critical Value Read Back Yes Blood Gas Notified Whom andreea Vitale Blood Gas Notified Time [id number] Blood Gas Notified By Rt arturo muna Random Vancomycin Level 14.4 ug/mL (5-10) Blood Gas Liter Flow 50.00 Vancomycin Level Trough 25.4 ug/mL (5-10) Test 05/20/25 03:40 05/11/25 14:35 05/07/25 04:15 04/30/25 14:30 Triglycerides Level 44 mg/dL (< 150) Urine Color Light-yellow (Yellow) Urine Clarity Clear (Clear) Urine pH 7.0 (5.0-9.0) Urine Specific [place] 1.021 (1.001-1.035) Urine Protein Negative (Negative) Urine Ketones Negative (Negative) Urine Blood 1+ /uL (Negative) Urine Nitrite Negative (Negative) Urine Bilirubin Negative (Negative) Urine Urobilinogen Normal mg/dL (Negative) Urine Leukocyte Esterase Negative /uL (Negative) Urine RBC 55 /hpf (0 - 4) Urine Microscopic WBC 1 /HPF (0-5) Urine Squamous Epithelial Cells Few /hpf (<5) Urine Bacteria None seen /hpf (None Seen) Urine Glucose Normal mg/dL (Normal) Lactic Acid Level 1.0 mmol/L (0.4-2.0) Body Fluid Source Pleural fluid Body Fluid pH 8.0 Body Fluid WBC (Manual) 221 CUMM (0-200) Body Fluid RBC (Manual) 6806 CUMM (0-2000) Body Fluid Mononuclear Cells 66 % Body Fluid Polymorphonuclear Cells 34 % (0-25) Body Fluid Glucose 126 mg/dL (.) Body Fluid Total Protein 3.3 g/dL (.) Body Fluid Lactate Dehydrogenase 221 IU/L (.) Test 04/27/25 00:39 04/26/25 18:55 04/24/25 03:08 04/22/25 03:15 Blood Gas Spontaneous Rate 26 Blood Gas Spontaneous Tidal Volume 388 Blood Gas EPAP 5 Blood Gas IPAP 12 Platelet Estimate Adequate Anisocytosis (manual) Slight Macrocytosis Slight Differential Total Cells Counted 100.0 (100) Neutrophils % (Manual) 78 (37.0-80.0) Band Neutrophils % (Manual) 2 Lymphocytes % (Manual) 13 (10.0-50.0) Monocytes % (Manual) 7 (0-12) Eosinophils % (Manual) 0 (0-7) Basophils % (Manual) 0 (0.0-2.0) Metamyelocytes % (manual) 0 Myelocytes % (Manual) 0 Promyelocytes % (Manual) 0 Blast Cells % (Manual) 0 Reactive Lymphocytes 0 Test 04/19/25 16:25 04/17/25 06:08 04/15/25 15:45 Vitamin B12 Level 454 pg/mL (211-911) Poikilocytosis (manual) Slight Target Cells Few Ovalocytes Few Schistocytes Few Lipase 30 U/L (12-53) Urine Amorphous Crystals Few /hpf (None Seen) Urine Hyaline Casts Few /lpf (0 - 2) Urine Mucus Few (None Seen) Other Laboratory Tests 06/03/25 03:31 Brief Hx & Hospital Course: History of Present Illness 89-year-old female presents for evaluation of abdominal pain. Patient with dementia noted by family members to be complaining of abdominal pain for the past two days. There is no nausea or vomiting. Family also reports worsening confusion from baseline. Course of hospitalization: Patient was seen by General surgery, undergoing exploratory laparotomy with release of small-bowel obstruction. Postoperatively, patient had difficulties with respiratory status, with the patient being reintubated twice after being extubated. Transitioning from TPN to tube feeding was initiated once patient is bowels began to move. Pulmonology consultation was obtained. Long discussion was made with family regarding plan of care. Given her advanced dementia and being reintubated twice, decision was made to not have tracheostomy placed and proceed with making the patient a DNR/DNI. Patient was given spontaneous breathing trial exercises over the course of 3-4 days. Patient was alert, following commands yesterday. CPAP trial was performed with the patient's subsequently being extubated. During the evening, patient became less responsive, expressing agonal breathing, followed by becoming asystolic. Patient's family was notified by ICU staff. Total time spent with patient discussing and formulating plan of care: 35 minutes. This medical document was created using an electronic medical record system with [employer] system. Although this document has been carefully reviewed, there may still be some phonetic and typographical errors. These areas are purely typographical due to imperfections of the software programs, and do not reflect any compromise in the patient's medical care. Consults/Reason for consult Gastroenterology: Choledocholithiasis, small-bowel obstruction General surgery: Small-bowel obstruction Pulmonology: Respiratory failure Operations or Procedures Exploratory laparotomy release of small-bowel obstruction Condition at Discharge: Poor Final Diagnosis/Problems List CBD stone with pancreatitis -choledocholithiasis -acute pancreatitis -small-bowel obstruction -dementia -cachexia -sepsis -COPD -GERD Discharge Disposition: at Hospital Discharge Instruct/Medications Diet: See Comment Diet comment: Activity: No Restrictions, As Tolerated Follow Up/Referral: Medications: Refer to medication reconciliation form Scheduled Albuterol Sulfate (Ventolin Mdi), 90 MCG IN TID, (Reported) Cholecalciferol (Vitamin D), 5,000 UNIT PO DAILY, (Reported) Fluticasone Propionate (FLOVENT HFA 110Mcg INH), 2 PUFF INH BID Omeprazole (Gnp Omeprazole), 1 TAB PO DAILY, (Reported) Oxycodone W/ Acetaminophen (Percocet 5/325MG), 1 TAB PO QIDPRN, (Reported) 36 Discharge Statement: "Patient was advised to return to the ER or call 911 if any headaches, dizziness, shortness of breath, chest pain, abdominal pain, bleeding, fevers, or worsening of medical condition. Patient was counseled about treatment plan, medications, possible side effects, patientverbalized understanding. All questions were answered to the best of my ability. This discharge took greater then 30 minutes in planning, reviewing documentation, counseling the patient, and discussing with other team members." ASSESSMENT ASSESSMENT Assessment CBD stone with pancreatitis-choledocholithiasis -acute codglogkftlv-oqzep-pptav obstruction -dementia-cachexia -sepsis -COPD -GERD Date of Service: Jun 03, 2025 Billing Provider: JAYDEN HILL NP Common Visit Codes: 12966-XHS/OBS DISCH DAY >30min JAYDEN HILL NP Jun 04, 2025 08:56
== END 2025-06-03 22:32 | DRG 853 ==
LOC: EDBD 15:04 → ER 15:04 → OVERFLOW 19:23 → WEST WING 04-16 19:45 → ICU WEST 04-20 21:25 → TELE-EAST 05-02 12:35 → ICU WEST 05-02 19:58
PROVIDERS: ADMIT Nurse Practitioner Acute Care; ATTEND Nurse Practitioner Acute Care
PROC: 0D9670Z Drainage of Stomach with Drainage Device, Via Natural or Artificial Opening (ICD-10-PCS; 2025-04-15)
PROC: 0DBN8ZX Excision of Sigmoid Colon, Via Natural or Artificial Opening Endoscopic, Diagnostic (ICD-10-PCS; 2025-04-18)
PROC: 3E0336Z Introduction of Nutritional Substance into Peripheral Vein, Percutaneous Approach (ICD-10-PCS; 2025-04-18)
PROC: 0DBV0ZZ Excision of Mesentery, Open Approach (ICD-10-PCS; 2025-04-20)
PROC: 5A1945Z Respiratory Ventilation, 24-96 Consecutive Hours (ICD-10-PCS; 2025-04-20)
PROC: 0DB80ZZ Excision of Small Intestine, Open Approach (ICD-10-PCS; principal; 2025-04-20 18:48)
PROC: 02HV33Z Insertion of Infusion Device into Superior Vena Cava, Percutaneous Approach (ICD-10-PCS; 2025-04-21)
PROC: B548ZZA Ultrasonography of Superior Vena Cava, Guidance (ICD-10-PCS; 2025-04-21)
PROC: 0BH17EZ Insertion of Endotracheal Airway into Trachea, Via Natural or Artificial Opening (ICD-10-PCS; 2025-04-21)
PROC: 5A0945A Assistance with Respiratory Ventilation, 24-96 Consecutive Hours, High Flow/Velocity Cannula (ICD-10-PCS; 2025-04-24)
PROC: 0B9K8ZZ Drainage of Right Lung, Via Natural or Artificial Opening Endoscopic (ICD-10-PCS; 2025-04-26)
PROC: 0B978ZZ Drainage of Left Main Bronchus, Via Natural or Artificial Opening Endoscopic (ICD-10-PCS; 2025-04-26)
PROC: 5A09357 Assistance with Respiratory Ventilation, Less than 24 Consecutive Hours, Continuous Positive Airway Pressure (ICD-10-PCS; 2025-04-26)
PROC: 5A0945A Assistance with Respiratory Ventilation, 24-96 Consecutive Hours, High Flow/Velocity Cannula (ICD-10-PCS; 2025-04-27)
PROC: 0W9B3ZX Drainage of Left Pleural Cavity, Percutaneous Approach, Diagnostic (ICD-10-PCS; 2025-04-30)
PROC: 0B978ZZ Drainage of Left Main Bronchus, Via Natural or Artificial Opening Endoscopic (ICD-10-PCS; 2025-04-30)
PROC: 0B938ZZ Drainage of Right Main Bronchus, Via Natural or Artificial Opening Endoscopic (ICD-10-PCS; 2025-04-30)
PROC: 0BH17EZ Insertion of Endotracheal Airway into Trachea, Via Natural or Artificial Opening (ICD-10-PCS; 2025-05-02)
PROC: 5A1955Z Respiratory Ventilation, Greater than 96 Consecutive Hours (ICD-10-PCS; 2025-05-03)
PROC: 5A0945A Assistance with Respiratory Ventilation, 24-96 Consecutive Hours, High Flow/Velocity Cannula (ICD-10-PCS; 2025-05-20)
PROC: 5A1955Z Respiratory Ventilation, Greater than 96 Consecutive Hours (ICD-10-PCS; 2025-05-23)
PROC: 0W993ZX Drainage of Right Pleural Cavity, Percutaneous Approach, Diagnostic (ICD-10-PCS; 2025-06-03)
DX: A41.9 Sepsis, unspecified organism (principal); J69.0 Pneumonitis due to inhalation of food and vomit; K85.90 Acute pancreatitis without necrosis or infection, unspecified; J96.01 Acute respiratory failure with hypoxia; K56.3 Gallstone ileus; K56.51 Intestinal adhesions [bands], with partial obstruction; R64 Cachexia; G93.40 Encephalopathy, unspecified; K80.50 Calculus of bile duct without cholangitis or cholecystitis without obstruction; J44.0 Chronic obstructive pulmonary disease with (acute) lower respiratory infection; N17.9 Acute kidney failure, unspecified; J90 Pleural effusion, not elsewhere classified; F03.90 Unspecified dementia, unspecified severity, without behavioral disturbance, psychotic disturbance, mood disturbance, and anxiety; I10 Essential (primary) hypertension; F05 Delirium due to known physiological condition; Z68.1 Body mass index [BMI] 19.9 or less, adult; E87.3 Alkalosis; J98.19 Other pulmonary collapse; K83.8 Other specified diseases of biliary tract; K58.9 Irritable bowel syndrome, unspecified; K57.30 Diverticulosis of large intestine without perforation or abscess without bleeding; K64.8 Other hemorrhoids; K44.9 Diaphragmatic hernia without obstruction or gangrene; K21.9 Gastro-esophageal reflux disease without esophagitis; Z66 Do not resuscitate; D75.89 Other specified diseases of blood and blood-forming organs; K56.41 Fecal impaction; F41.9 Anxiety disorder, unspecified; R74.01 Elevation of levels of liver transaminase levels; M81.0 Age-related osteoporosis without current pathological fracture; I48.91 Unspecified atrial fibrillation; Z99.81 Dependence on supplemental oxygen; Z90.710 Acquired absence of both cervix and uterus; Z87.891 Personal history of nicotine dependence; Z82.3 Family history of stroke; Z80.3 Family history of malignant neoplasm of breast; Z82.5 Family history of asthma and other chronic lower respiratory diseases
CPT/HCPCS: 32555; 36415; 36569; 36600; 71045; 71250; 74018; 74176; 74181; 74250; 76937; 80048; 80053; 80202; 81001; 82607; 82805; 82962; 83605; 83690; 83735; 83986; 84100; 84478; 85007; 85014; 85018; 85025; 85027; 85610; 85730; 86850; 86900; 86901; 87040; 87070; 87071; 87081; 87086; 87205; 89051; 92610; 93005; 93306; 94002; 94003; 94640; 94660; 94667; 94668; 96374; G0378; J0131; J0330; J0690; J1100; J1815; J1885; J2003; J2185; J2248; J2250; J2405; J2470; J2543; J2704; J3480; J7042; J7060; J7131